=== PATIENT | female | born 1940 | race American Indian/Alaskan Native ===

== ENCOUNTER 2019-03-21 17:02 | Emergency (ER) | payer MEDICARE ==
--- NOTE | 2019-03-21 17:15 | Emergency Department Report ---
Blank Doc - Documentation Documentation: This is a 78-year-old female that presents to the ED by her PCP for blood rose sfusion. Stated had low H/H. This initial assessment/diagnostic orders/clinical plan/treatment(s) is/are subject to change based on patient's health status, clinical progression and re- assessment by fellow clinical providers in the ED. Further treatment and workup at subsequent clinical providers discretion. Patient/guardians urged not to elope from the ED as their condition may be serious if not clinically assessed and managed. Initial orders include: 1- Patient sent to MAIN ED for further evaluation and treatment 2- labs
[2019-03-21 17:56] LABS: Hematocrit 21.2 % (30.3-42.9); Hemoglobin 7.1 gm/dl (10.1-14.3); Mean Corpuscular HGB Conc 33 % (30-34); Red Blood Count 1.86 M/mm3 (3.65-5.03)
[2019-03-21 17:57] LABS: Calcium 8.8 mg/dL (8.4-10.2)
[2019-03-21 17:58] LABS: Mean Corpuscular Volume 114 fl (79-97); Platelet Count 54 K/mm3 (140-440)
--- NOTE | 2019-03-21 18:07 | Emergency Department Report ---
HPI - General Chief Complaint: Recheck/Abnormal Lab/Rx Time Seen by Provider: 03/21/19 17:14 - HPI HPI: 78-year-old -[place] female presents to the emergency department, sent in by her oncologist Dr. Gonsales, secondary to low hemoglobin with a requ est/instructions for a blood transfusion. The office note shows a hemoglobin of 6.8 and his request for the patient received 2 units of packed red blood cells. Patient has a history of myelodysplastic syndrome. She is not currently undergoing any type of chemotherapy or radiation treatment. She also has a past medical history of diabetes and hypertension. The patient complains of a generalized headache has been going on for the past week. She denies any vision change, slurred speech or any neurological deficits. She has not taken anything for her symptoms prior to arrival today. No recent travel or sick contacts at home. ED Past Medical Hx - Past Medical History Previous Medical History?: Yes Hx Hypertension: Yes Hx Diabetes: Yes Additional medical history: Myelodysplastic syndrome - Surgical History Additional Surgical History: Bone Cancer - Social History Smoking Status: Never Smoker Substance Use Type: None - Medications Home Medications: Home Medications Medication Instructions Recorded Confirmed Last Taken Type HYDROcodone/APAP 5-325 [[place] 1 each PO Q6HR PRN #6 tablet 03/22/19 Unknown Rx 5/325] ED Review of Systems ROS: Stated complaint: BLOOD TRANSFUSION Other details as noted in HPI Comment: All other systems reviewed and negative Constitutional: denies: chills, fever Eyes: denies: eye pain, vision change ENT: denies: ear pain, throat pain Respiratory: denies: cough, shortness of breath Cardiovascular: denies: chest pain, palpitations Gastrointestinal: denies: abdominal pain, vomiting Genitourinary: denies: dysuria, discharge Musculoskeletal: denies: back pain, arthralgia Skin: denies: rash, lesions Neurological: headache. denies: numbness, paresthesias, confusion Physical Exam - Physical Exam Vital Signs: Vital Signs 03/21/19 17:14 Temperature 98.6 F Pulse Rate 72 Respiratory 16 Rate Blood Pressure 136/46 O2 Sat by Pulse 99 Oximetry Physical Exam: GENERAL: The patient is well-developed well-nourished. HENT: Normocephalic. Atraumatic. Patient has moist mucous membranes. EYES: Extraocular motions are intact. Pupils equal reactive to light bilaterally. No nystagmus. Pale conjunctiva. NECK: Supple. Trachea is midline. CHEST/LUNGS: Clear to auscultation. There is no respiratory distress noted. HEART/CARDIOVASCULAR: Regular. There is no tachycardia. There is no murmur. ABDOMEN: Abdomen is soft, nontender. Patient has normal bowel sounds. There is no abdominal distention. SKIN: Skin is warm and dry. NEURO: The patient is awake, alert, and oriented. The patient is cooperative. The patient has no focal neurologic deficits. The patient has normal speech. Cranial nerves II through XII grossly intact. MUSCULOSKELETAL: There is no tenderness or deformity. There is no limitation range of motion. There is no evidence of acute injury. ED Course Vital Signs 03/21/19 17:14 Temperature 98.6 F Pulse Rate 72 Respiratory 16 Rate Blood Pressure 136/46 O2 Sat by Pulse 99 Oximetry - Consultations Consultation #1: I spoke with the patient's oncologist, Dr. Chauhan, regarding that the patient had a hemoglobin here today of 7.1. He asked for the patient receive 1 unit of packed red blood cells. The patient can be discharged home afterwards if there are no other reasons for admission. If the patient is discharged, he has requested the patient come to his office tomorrow afternoon at 2 PM for a bone marrow biopsy. 03/21/19 18:07 ED Medical Decision Making - Lab Data Result diagrams: 03/21/19 17:20 03/21/19 17:20 - EKG Data -: EKG Interpreted by Co EKG shows normal: sinus rhythm, axis, intervals, QRS complexes, ST-T waves Rate: normal - EKG Data When compared to previous EKG there are: previous EKG unavailable Interpretation: normal EKG - Radiology Data Radiology results: report reviewed CT HEAD WITHOUT CONTRAST INDICATION / CLINICAL INFORMATION: headache. TECHNIQUE: All CT scans at this location are performed using CT dose reduction for ALARA by means of automated exposure control. COMPARISON: None available. FINDINGS: HEMORRHAGE: No evidence of intracranial hemorrhage or extra-axial fluid collection. EXTRA-AXIAL SPACES: Cortical sulci and sylvian fissures are enlarged reflecting a degree of parenchymal volume loss which is within normal limits. Basilar cisterns have an unremarkable appearance. VENTRICULAR SYSTEM: The third and lateral ventricles are normal in size. There is little in the way of age-related parenchymal volume loss in this 78 year-old individual. CEREBRAL PARENCHYMA: Periventricular and deep white matter lucency is observed. This is probably secondary to microvascular ischemic change. There is no indication of recent infarction. No areas of encephalomalacia are identified. MIDLINE SHIFT OR HERNIATION: There is no mass effect. CEREBELLUM / BRAINSTEM: Brainstem and cerebellum have an unremarkable appearance. INTRACRANIAL VESSELS:Calcified atherosclerotic plaque is present along the course of the cavernous segments of both internal carotid arteries. Similar findings are seen at the distal vertebral arteries. ORBITS: There is evidence of remote left-sided medial wall blowout fracture. Visualized portions of the orbits have an otherwise unremarkable appearance. SOFT TISSUES of HEAD: No significant abnormality. CALVARIUM: Prominent pacchionian granulations are observed along the floor of the left middle cranial fossa. Evaluation of bone windows reveals no significant abnormalities. PARANASAL SINUSES / MASTOID AIR CELLS: Frontal sinuses did not develop in this individual. Paranasal sinuses are free from inflammatory mucosal disease. Mastoid air cells are normally pneumatized. IMPRESSION: 1. No acute intracranial abnormality. - Medical Decision Making This patient was sent in by her packager and strapper/oncologist secondary to a previous hemoglobin of 6.8 and a request for blood transfusions. Her hemoglobin today was 7.1. I contacted the packager and strapper who asked for the patient to receive 1 unit of packed red blood cells for transfusion. He says that the patient can be discharged home after this if there are no other significant abnormalities or reasons for admission. She does have some slightly elevated potassium level but she was given a dose of Kayexalate. She complained of a headache so a CT scan of the head without contrast was done that did not show any bleed, shift, mass, ischemia, or any other acute process. The patient was reevaluated multiple times over multiple hours and has remained awake, alert, oriented, and stable throughout her ED course. She was given a single [place] for her headache with great improvement. She has no focal, motor or sensory deficits in her cranial nerves are intact. Vital signs stable throughout her ED course. For all these reasons, the patient appears safe for discharge home. Provided discharge, the patient was seen ambulatory in the emergency department and both appears and feels stable. She will follow-up at 2 PM this afternoon with the packager and strapper/oncologist for a bone marrow biopsy. She will return to the ER with any worsening of her symptoms or any acute distress. - Differential Diagnosis myelodysplastic syndrome, tension headache, migraine, subarachnoid Critical Care Time: No Critical care attestation.: If time is entered above; I have spent that time in minutes in the direct care of this critically ill patient, excluding procedure time. ED Disposition Clinical Impression: Myelodysplasia (myelodysplastic syndrome), Anemia requiring transfusions, Thrombocytopenia Disposition: TO HOME OR SELFCARE Is pt being admited?: No Condition: Stable Instructions: Myelodysplastic Syndromes (ED), Acute Headache (ED), Anemia (ED) Additional Instructions: Please follow-up with your packager and strapper/oncologist at 2 PM this afternoon. Return to the emergency Department with any worsening of your symptoms or any acute distress. You have been prescribed a medication that is sedating and therefore should not be taken prior to driving, working, and responsible for children and in no way should be mixed with alcohol of any quantity. Prescriptions: HYDROcodone/APAP 5-325 [[place] 5/325] 1 each PO Q6HR PRN #6 tablet PRN Reason: Pain Referrals: RICARDO GONSALES MD [Staff Physician] - 03/22/19 2:00 pm Time of Disposition: 01:00
[2019-03-21] MEDS ORDERED: KIONEX PO ONE (18:13)
[2019-03-21] MEDS ORDERED: NACL 0.9% 500 ML 500 ML IV ONE (18:13)
[2019-03-21 18:54] LABS: Band Neutrophils # (Manual) 0.2 K/mm3; Basophils % (Manual) 0 % (0.0-1.8); Eosinophils % (Manual) 0 % (0.0-4.3); Myelocytes # (Manual) 0.2 K/mm3; Total Cells Counted 100
[2019-03-21 18:55] LABS: Large Platelets 1+; Macrocytosis 1+
[2019-03-21 18:56] LABS: Hypochromasia 2+; Ovalocytes 1+; Tear Drop Cells 1+
[2019-03-21 18:57] LABS: Schistocytes Rare
[2019-03-21 18:58] LABS: Platelet Estimate Appears Decreased
--- NOTE | 2019-03-21 21:42 | Cat Scan Report ---
CT HEAD WITHOUT CONTRAST INDICATION / CLINICAL INFORMATION: headache. TECHNIQUE: All CT scans at this location are performed using CT dose reduction for ALARA by means of automated e xposure control. COMPARISON: None available. FINDINGS: HEMORRHAGE: No evidence of intracranial hemorrhage or extra-axial fluid collection. EXTRA-AXIAL SPACES: Cortical sulci and sylvian fissures are enlarged reflecting a degree of parenchym al volume loss which is within normal limits. Basilar cisterns have an unremarkable appearance. VENTRICULAR SYSTEM: The third and lateral ventricles are normal in size. There is little in the way o f age-related parenchymal volume loss in this 78 year-old individual. CEREBRAL PARENCHYMA: Periventricular and deep white matter lucency is observed. This is probably seco ndary to microvascular ischemic change. There is no indication of recent infarction. No areas of ence phalomalacia are identified. MIDLINE SHIFT OR HERNIATION: There is no mass effect. CEREBELLUM / BRAINSTEM: Brainstem and cerebellum have an unremarkable appearance. INTRACRANIAL VESSELS:Calcified atherosclerotic plaque is present along the course of the cavernous se gments of both internal carotid arteries. Similar findings are seen at the distal vertebral arteries. ORBITS: There is evidence of remote left-sided medial wall blowout fracture. Visualized portions of t he orbits have an otherwise unremarkable appearance. SOFT TISSUES of HEAD: No significant abnormality. CALVARIUM: Prominent pacchionian granulations are observed along the floor of the left middle cranial fossa. Evaluation of bone windows reveals no significant abnormalities. PARANASAL SINUSES / MASTOID AIR CELLS: Frontal sinuses did not develop in this individual. Paranasal sinuses are free from inflammatory mucosal disease. Mastoid air cells are normally pneumatized. IMPRESSION: 1. No acute intracranial abnormality. Signer Name: Ba Salamanca MD Signed: 03/21/2019 9:37 PM Workstation Name: [id number]
[2019-03-21] MEDS ORDERED: NORCO 5/325 PO ONE (21:52)
[2019-03-21 23:43] VITALS: BP 152/53
== END 2019-03-22 01:12 | disposition home or self-care (01) ==
LOC: ED 17:02
DX: D46.9 Myelodysplastic syndrome, unspecified (principal); D69.6 Thrombocytopenia, unspecified; I10 Essential (primary) hypertension; E11.9 Type 2 diabetes mellitus without complications; Z85.830 Personal history of malignant neoplasm of bone
CPT/HCPCS: 36415; 36430; 70450; 80048; 85007; 85025; 85730; 86850; 86900; 86901; 86920; 93005; 93010; 99284; J7040; P9040

== ENCOUNTER 2019-05-25 19:23 | Inpatient (IN) | payer MEDICARE ==
[2019-05-25] MEDS ORDERED: NACL 0.9% 500 ML 500 ML IV ONE ×2 (20:17→21:31)
[2019-05-25] MEDS ORDERED: SUBLIMAZE IV ONE (20:19)
--- NOTE | 2019-05-25 20:20 | Emergency Department Report ---
ED General Adult HPI - General Chief complaint: Dyspnea/Respdistress Stated complaint: NILES Time Seen by Provider: 05/25/19 20:10 Source: patient, EMS (ems notes not available at time of chart dictation), RN notes reviewed, old records reviewed Mode of arrival: Stretcher Limitations: Physical Limitation - History of Present Illness Initial comments: This is a pleasant 78-year-old female. This patient is not known to this provider previously. She does not know the name of her primary care doctor. Her hematology application security specialist is Dr. Gonsales Apparently, she has a history of myelodysplastic syndrome, and anemia Patient states she was admitted to [facility] for over a week last month. She is not sure why she was admitted, possibly for a fall. She presents to the ER today with complaint of shortness of breath and central chest pain, malaise and fatigue. Symptoms constant since this morning. The chest pain is central and right-sided. It does not radiate anywhere. She is not sure of any exacerbating or relieving factors. She denies fever, they have a dry cough, denies hematemesis, bright red blood per rectum. Also feels like bilateral lower extremities are swollen. Feels somewhat orthopneic. -: Gradual Location: chest Quality: other Consistency: other Improves with: other Worsens with: other Associated Symptoms: chest pain, malaise, shortness of breath, weakness - Related Data Previous Rx's Medication Instructions Recorded Last Taken Type HYDROcodone/APAP 5-325 [[place] 1 each PO Q6HR PRN #6 tablet 03/22/19 Unknown Rx 5/325] Allergies Allergy/AdvReac Type Severity Reaction Status Date / Time No Known Allergies Allergy Verified 05/25/19 20:14 ED Review of Systems ROS: Stated complaint: NILES Other details as noted in HPI Constitutional: malaise. denies: fever Eyes: denies: eye discharge ENT: denies: congestion Respiratory: shortness of breath Cardiovascular: chest pain, edema Gastrointestinal: denies: abdominal pain, nausea, vomiting, constipation, hematemesis, melena, hematochezia Genitourinary: denies: dysuria Musculoskeletal: myalgia Skin: denies: lesions Neurological: weakness ED Past Medical Hx - Past Medical History Previous Medical History?: Yes Hx Hypertension: Yes Hx Diabetes: Yes Hx of Cancer: Yes (Bone) Additional medical history: Myelodysplastic syndrome - Surgical History Past Surgical History?: Yes Hx Cholecystectomy: Yes Additional Surgical History: Bone Cancer - Social History Smoking Status: Never Smoker Substance Use Type: None - Medications Home Medications: Home Medications Medication Instructions Recorded Confirmed Last Taken Type HYDROcodone/APAP 5-325 [[place] 1 each PO Q6HR PRN #6 tablet 03/22/19 Unknown Rx 5/325] ED Physical Exam - General Limitations: No Limitations, Physical Limitation General appearance: alert, anxious - Head Head exam: Present: atraumatic, normocephalic - Eye Eye exam: Present: normal appearance, EOMI. Absent: nystagmus - ENT ENT exam: Present: normal exam, normal orophraynx, mucous membranes moist - Neck Neck exam: Present: normal inspection, full ROM. Absent: tenderness, meningismus - Respiratory Respiratory exam: Present: decreased breath sounds. Absent: respiratory distress, wheezes, rales, rhonchi, stridor - Cardiovascular Cardiovascular Exam: Present: normal rhythm, normal heart sounds, JVD. Absent: tachycardia, irregular rhythm, systolic murmur, diastolic murmur, rubs, gallop - GI/Abdominal GI/Abdominal exam: Present: soft. Absent: distended, tenderness, guarding, rebound, rigid, pulsatile mass - Extremities Exam Extremities exam: Present: normal inspection, full ROM, pedal edema, other (2+ pulses noted in the bilateral upper, lower extremities. Compartments soft. No long bony tenderness. The pelvis is stable.). Absent: calf tenderness - Back Exam Back exam: Present: normal inspection, full ROM. Absent: CVA tenderness (R), CVA tenderness (L), paraspinal tenderness, vertebral tenderness - Neurological Exam Neurological exam: Present: alert, other (Extraocular movements intact. Tongue midline. No facial droop. Facial sensation intact to light touch in the V1, V2, V3 distribution bilaterally. 5 and 5 strength in 4 extremities.. Sensation is intact to light touch in 4 extremities.). Absent: motor sensory deficit - Psychiatric Psychiatric exam: Present: normal affect, normal mood - Skin Skin exam: Present: warm, dry, intact, normal color. Absent: rash ED Course Vital Signs 05/25/19 05/25/19 05/25/19 20:06 20:11 20:15 Temperature Pulse Rate 81 Respiratory 20 20 Rate Blood Pressure 118/83 O2 Sat by Pulse 91 77 L 76 L Oximetry 05/25/19 05/25/19 05/25/19 20:16 20:30 20:46 Temperature Pulse Rate 86 82 Respiratory 25 H 20 28 H Rate Blood Pressure 123/33 143/58 139/47 O2 Sat by Pulse 87 95 95 Oximetry 05/25/19 05/25/19 05/25/19 20:50 21:00 21:26 Temperature 99.3 F Pulse Rate 81 102 H Respiratory 24 Rate Blood Pressure 105/33 105/33 O2 Sat by Pulse 96 90 Oximetry 05/25/19 21:30 Temperature Pulse Rate 94 H Respiratory 29 H Rate Blood Pressure 152/48 O2 Sat by Pulse 94 Oximetry - Reevaluation(s) Reevaluation #1: 05/25/19 20:36 Differential diagnosis, including not limited to: Pericardial effusion, pericarditis, congestive heart failure, tampanade, acute coronary syndrome, pneumonia, pulmonary embolism Assessment and plan: 78-year-old female with quite shortness of breath, found to be hypoxic, with minimal lower extremity edema, JVD, no crackles, no rales, bedside ultrasound performed by myself, suggests a ? pericardial effusion, ejection fraction approximately 50%, equal pulses upper, lower extremities. We'll treat the patient's pain, obtain emergent CT scan of the chest to exclude pulmonary embolism and confirm/refute effusion, obtain cardiology consult once initial diagnostics have resulted. Doubt aortic disease as patient has equal pulses in the upper, lower extremities, and is not especially hypertensive. 05/25/19 21:53 Reevaluation #2: 05/25/19 21:35 Laboratory studies reviewed and appreciated. Anemia suggested, along with neutropenia. Neutropenic precautions are ordered. 1 unit of leukocyte reduced irradiated blood cells ordered for presumed symptomatic anemia. Contacted patient's private territory sales representative, Dr. Gonsales, who indicates his group can and will see the patient in consultation. He recommends cefepime, and is in agreement with packed red blood cell transfusion. Cardiology, critical care consult has been requested. Reevaluation #3: 05/25/19 21:39 Case is discussed with cardiology on-call, Dr. Linda Manning, who agrees with the aforementioned management plan, and indicates his group can follow in consultation. Reevaluation #4: 05/25/19 21:42 Discussed with critical care physician, Dr. Mckeon, who agrees with the current management plan, and is also amenable to placement into the stepdown unit. Reevaluation #5: 05/25/19 21:53 CT scan of the chest suggest congestive heart failure. Case presented to Hospital physician, Dr. Jimenez, who accepts the patient to the medical service. No evidence of pulmonary embolus is suggested. There is no CT scan evidence of pericardial effusion. 05/25/19 22:09 Patient hypoxic with increased work of breathing. BiPAP is ordered. ED Medical Decision Making - Lab Data Result diagrams: 05/25/19 20:15 05/25/19 20:15 Vital Signs 05/25/19 20:11 Pulse Rate 81 Respiratory 20 Rate Blood Pressure 118/83 O2 Sat by Pulse 77 L Oximetry Vital Signs 05/25/19 05/25/19 05/25/19 20:06 20:11 20:16 Temperature Pulse Rate 81 86 Respiratory 20 25 H Rate Blood Pressure 118/83 123/33 O2 Sat by Pulse 91 77 L 87 Oximetry 05/25/19 05/25/19 05/25/19 20:30 20:46 20:50 Temperature 99.3 F Pulse Rate 82 Respiratory 20 28 H Rate Blood Pressure 143/58 139/47 O2 Sat by Pulse 95 95 Oximetry Lab Results 05/25/19 05/25/19 05/25/19 Range/Units 20:15 20:15 20:15 PT 18.1 H (12.2-14.9) Sec. INR 1.54 H (0.87-1.13) APTT 40.6 H (24.2-36.6) Sec. D-Dimer 609.27 H (0-234) ng/mlDDU Sodium 142 (137-145) mmol/L Potassium 3.8 (3.6-5.0) mmol/L Chloride 101.4 (98-107) mmol/L Carbon Dioxide 26 (22-30) mmol/L Anion Gap 18 mmol/L BUN 19 H (7-17) mg/dL Creatinine 0.9 (0.7-1.2) mg/dL Estimated GFR > 60 ml/min BUN/Creatinine Ratio 21 % Glucose 95 (65-100) mg/dL Calcium 8.3 L (8.4-10.2) mg/dL Magnesium (1.7-2.3) mg/dL Total Bilirubin 1.40 H (0.1-1.2) mg/dL AST 7 (5-40) units/L Alkaline Phosphatase 59 (35-129) units/L Total Creatine Kinase (30-135) units/L Troponin T < 0.010 (0.00-0.029) ng/mL NT-Pro-B Natriuret Pep (0-900) pg/mL Total Protein 7.0 (6.3-8.2) g/dL Albumin 3.6 L (3.9-5) g/dL Albumin/Globulin Ratio 1.1 % 05/25/19 Range/Units 20:15 PT (12.2-14.9) Sec. INR (0.87-1.13) APTT (24.2-36.6) Sec. D-Dimer (0-234) ng/mlDDU Sodium (137-145) mmol/L Potassium (3.6-5.0) mmol/L Chloride (98-107) mmol/L Carbon Dioxide (22-30) mmol/L Anion Gap mmol/L BUN (7-17) mg/dL Creatinine (0.7-1.2) mg/dL Estimated GFR ml/min BUN/Creatinine Ratio % Glucose (65-100) mg/dL Calcium (8.4-10.2) mg/dL Magnesium 2.10 (1.7-2.3) mg/dL Total Bilirubin (0.1-1.2) mg/dL AST (5-40) units/L Alkaline Phosphatase (35-129) units/L Total Creatine Kinase 17 L (30-135) units/L Troponin T (0.00-0.029) ng/mL NT-Pro-B Natriuret Pep 5267 H (0-900) pg/mL Total Protein (6.3-8.2) g/dL Albumin (3.9-5) g/dL Albumin/Globulin Ratio % - EKG Data -: EKG Interpreted by Sd EKG shows normal: sinus rhythm Rate: normal - EKG Data 05/25/19 20:40 This is a sinus rhythm, 80 bpm, normal axis, question electrical alternans lead 3, there is low voltage in the inferior leads, there is poor R-wave progression, the EKG is abnormal, when compared to prior EKG from March 2019, appears mostly unchanged, lead 3 abnormalities appear to be somewhat more pronounced, not consistent with ST elevation myocardial infarction. - Radiology Data Radiology results: pending, report reviewed, image reviewed [address] [address] XRay Report Signed Patient: TONY BURCH MR#: [id number] : 1940 Acct:[id number] Age/Sex: 78 / F ADM Date: 05/25/19 Loc: ED Attending Dr: Ordering Physician: JULIET MAYO MD Date of Service: 05/25/19 Procedure(s): XR chest 1V ap Accession Number(s): [id number] cc: JULIET MAYO MD Fluoro Time In Minutes: CHEST 1 VIEW INDICATION: Dyspnea. COMPARISON: None. FINDINGS: Support devices: None. Heart: Enlarged. Lungs/Pleura: Mild diffuse predominantly interstitial opacities are noted and there are small effusions. IMPRESSION: 1. Probable mild congestive heart failure. Signer Name: Stan Zhao MD Signed: 05/25/2019 9:19 PM Workstation Name: [id number] Transcribed By: Dictated By: Stan Zhao MD Electronically Authenticated By: Stan Zhao MD Signed Date/Time: 05/25/[address] [address] Cat Scan Report Signed Patient: TONY BURCH MR#: [id number] : 1940 Acct:[id number] Age/Sex: 78 / F ADM Date: 05/25/19 Loc: ED Attending Dr: Ordering Physician: JULIET MAYO MD Date of Service: 05/25/19 Procedure(s): CT angio chest Accession Number(s): [id number] cc: JULIET MAYO MD CTA CHEST WITH IV CONTRAST INDICATION: cp sob hypoxia. TECHNIQUE: Axial CT images were obtained through the chest after injection of IV contrast. 3 plane MIP reconstructions were produced. All CT scans at this location are performed using CT dose reduction for ALARA by means of automated exposure control. COMPARISON: None available. FINDINGS: Pulmonary Arteries: No pulmonary emboli. Thoracic Aorta: No acute abnormality. Heart: There is mild left atrial enlargement. There is no pericardial effusion. Coronary Arteries: No significant calcification. Lungs: Diffuse increased interstitial markings are noted with subtle bilateral groundglass opacities. There is compressive atelectasis in the dependent lung bases. Pleura: There are small, relatively symmetric bilateral pleural effusions. No pneumothorax. Lymph Nodes: No significant adenopathy. Additional Findings: None. Upper Abdomen: Hepatomegaly is noted. There is marked splenomegaly, this is incompletely evaluated on this exam. Skeletal Structures: No significant osseous abnormality. IMPRESSION: 1. No CT evidence for pulmonary embolism. 2. Diffuse predominantly interstitial pulmonary opacities may be due to interstitial pulmonary edema. There are small effusions. 3. Massive splenomegaly, incompletely evaluated on this exam. There also is enlargement of the liver. Signer Name: Stan Zhao MD Signed: 05/25/2019 9:40 PM Workstation Name: [id number] Transcribed By: YENIFER Dictated By: Stan Zhao MD Electronically Authenticated By: Stan Zhao MD Signed Date/Time: 05/25/19 1170 Critical Care Time: Yes Critical care time in (mins) excluding proc time.: 60 Critical care attestation.: If time is entered above; I have spent that time in minutes in the direct care of this critically ill patient, excluding procedure time. ED Disposition Clinical Impression: Dyspnea, Hypoxia, Neutropenia, Acute CHF Disposition: OP ADMIT IP TO THIS HOSP Is pt being admited?: Yes Condition: Serious Referrals: JEFFRY WELCH MD [Primary Care Provider] - 3-5 Days
[2019-05-25 20:40] LABS: INR 1.54 (0.87-1.13)
[2019-05-25 20:41] LABS: Partial Thromboplastin Time 40.6 Sec. (24.2-36.6)
[2019-05-25 20:48] LABS: Albumin 3.6 g/dL (3.9-5); BUN/Creatinine Ratio 21; Blood Urea Nitrogen 19 mg/dL (7-17); Calcium 8.3 mg/dL (8.4-10.2); Hemolysis Index 31; Mean Corpuscular HGB Conc 33 % (30-34); Mean Corpuscular Volume 94 fl (79-97); Red Blood Count 1.93 M/mm3 (3.65-5.03)
[2019-05-25 21:02] LABS: Alanine Aminotransferase < 5 units/L (7-56)
[2019-05-25 21:07] LABS: Hematocrit 18.2 % (30.3-42.9); Red Cell Distribution Width 22.6 % (13.2-15.2)
[2019-05-25 21:08] LABS: Platelet Count 48 K/mm3 (140-440)
--- NOTE | 2019-05-25 21:23 | XRay Report ---
CHEST 1 VIEW INDICATION: Dyspnea. COMPARISON: None. FINDINGS: Support devices: None. Heart: Enlarged. Lungs/Pleura: Mild diffuse predominantly interstitial opacities are noted and there are small effusio ns. IMPRESSION: 1. Probable mild congestive heart failure. Signer Name: Stan Zhao MD Signed: 05/25/2019 9:19 PM Workstation Name: [id number]
[2019-05-25] MEDS ORDERED: LASIX IV ONE (21:35)
--- NOTE | 2019-05-25 21:44 | Cat Scan Report ---
CTA CHEST WITH IV CONTRAST INDICATION: cp sob hypoxia. TECHNIQUE: Axial CT images were obtained through the chest after injection of IV contrast. 3 plane MIP reconstru ctions were produced. All CT scans at this location are performed using CT dose reduction for ALARA b y means of automated exposure control. COMPARISON: None available. FINDINGS: Pulmonary Arteries: No pulmonary emboli. Thoracic Aorta: No acute abnormality. Heart: There is mild left atrial enlargement. There is no pericardial effusion. Coronary Arteries: No significant calcification. Lungs: Diffuse increased interstitial markings are noted with subtle bilateral groundglass opacities. There is compressive atelectasis in the dependent lung bases. Pleura: There are small, relatively symmetric bilateral pleural effusions. No pneumothorax. Lymph Nodes: No significant adenopathy. Additional Findings: None. Upper Abdomen: Hepatomegaly is noted. There is marked splenomegaly, this is incompletely evaluated on this exam. Skeletal Structures: No significant osseous abnormality. IMPRESSION: 1. No CT evidence for pulmonary embolism. 2. Diffuse predominantly interstitial pulmonary opacities may be due to interstitial pulmonary edema. There are small effusions. 3. Massive splenomegaly, incompletely evaluated on this exam. There also is enlargement of the liver. Signer Name: Stan Zhao MD Signed: 05/25/2019 9:40 PM Workstation Name: [id number]
[2019-05-25] MEDS ORDERED: MAXIPIME/NS 2 GM/100 ML 2 GM/100 ML BAG IV SCH (22:00)
[2019-05-25] MEDS ORDERED: VASOTEC IV ONE (22:12)
[2019-05-25] MEDS ORDERED: ASPIRIN PR ONE (22:17)
[2019-05-25 22:22] LABS: Anisocytosis 1+; Total Cells Counted 100
[2019-05-25 22:23] LABS: Platelet Clumps 1+
--- NOTE | 2019-05-25 22:29 | History and Physical Report ---
History of Present Illness Date of examination: 05/25/19 History of present illness: 78-year-old woman with a history of myelodysplastic syndrome, hypertension, diabetes, anemia comes emergency room with complaints of shortness of breath and feeling dizzy, symptoms started this morning. Also complain of chest pain in t he epigastric area which she describes as sharp pain, constant, intensity follow 10, no radiation, can't identify exacerbating or relieving factors. She was admitted to [facility] 1[facility]1/2 weeks ago, she sustained a fall, state that she was transfused 4 units of blood and also given plasma and antibiotics, she is not quite sure why antibiotic was given. She was discharged from the hospital on Thursday. In the emergency room she was started on nitroglycerin drip, placed on BiPAP eview Of Systems: Constitutional: no weight loss, fever, chills Ears, eyes, nose, mouth and throat: no nasal congestion, no nasal discharge, no sinus pressure, blurry vision, diplopia Neck: No neck pain or rigidity. Cardiovascular: No palpitations Respiratory: No cough Gastrointestinal: No hematochezia, abdominal pain Genitourinary : no dysuria, frequency , hematuria Musculoskeletal: no muscle ache , joint pain Integumentary: no rash, no pruritis Neurological: no parathesias, focal weakness Endocrine: no cold or heat intolerance, no polyuria or polydipsia Hematologic/Lymphatic: no easy bruising, no easy bleeding, no gland swelling Allergic/Immunologic: no urticaria, no angioedema. PAST MEDICAL HISTORY:myelodysplastic syndrome, hypertension, diabetes, anemia PAST SURGICAL HISTORY: gallbladder FAMILY HISTORY:hypertension, diabetes SOCIAL HISTORY: Denies tobacco, drugs, alcohol Medications and Allergies Allergies Allergy/AdvReac Type Severity Reaction Status Date / Time No Known Allergies Allergy Verified 05/25/19 20:14 Home Medications Medication Instructions Recorded Confirmed Last Taken Type HYDROcodone/APAP 5-325 [[place] 1 each PO Q6HR PRN #6 tablet 03/22/19 Unknown Rx 5/325] Active Meds: Active Medications Nitroglycerin/Dextrose (Tridil Drip 50mg/250ml) 50 mg in 250 mls @ 3 mls/hr IV TITR XOCHITL; Protocol Exam - Physical Exam Narrative exam: General Apperance: The patient sitting in bed no acute distress HEENT: Normocephalic, atraumatic. Pupils equally round and reactive to light, extraocular movement intact, and no sclericterus or JVD or thyromegaly or nodule. Neck supple, no carotid bruit, mucous membranes moist, no exudate or erythema Heart: S1-S2, regular is rhythm Lungs: Crackles bilaterally, breathing comfortable Abdomen: Positive bowel sounds, soft, nontender, nondistended, no organomegaly Extremities: No edema cyanosis clubbing Skin: no rash, nodule, warm and dry Neuro:CN 2 -12 intact, motor/sensory intact, speech is fluent - Constitutional Vitals: Temp Pulse Resp BP Pulse Ox 99.3 F 111 H 26 H 182/71 96 05/25/19 20:50 05/25/19 22:15 05/25/19 22:15 05/25/19 22:15 05/25/19 22:15 Results - Labs CBC & Chem 7: 05/25/19 20:15 05/25/19 20:15 Labs: Abnormal lab results 05/25/19 05/25/19 05/25/19 Range/Units 20:15 20:15 20:15 WBC 1.1 L* (4.5-11.0) K/mm3 RBC 1.93 L (3.65-5.03) M/mm3 Hgb 6.0 L (10.1-14.3) gm/dl Hct 18.2 L* (30.3-42.9) % RDW 22.6 H (13.2-15.2) % Plt Count 48 L (140-440) K/mm3 Monocytes % (Manual) 19.0 H (0.0-7.3) % Eosinophils % (Manual) 7.0 H (0.0-4.3) % Basophils % (Manual) 3.0 H (0.0-1.8) % Seg Neutrophils # Man 0.5 L (1.8-7.7) K/mm3 Lymphocytes # (Manual) 0.3 L (1.2-5.4) K/mm3 PT 18.1 H (12.2-14.9) Sec. INR 1.54 H (0.87-1.13) APTT 40.6 H (24.2-36.6) Sec. D-Dimer 609.27 H (0-234) ng/mlDDU BUN 19 H (7-17) mg/dL Calcium 8.3 L (8.4-10.2) mg/dL Total Bilirubin 1.40 H (0.1-1.2) mg/dL ALT < 5 L (7-56) units/L Total Creatine Kinase (30-135) units/L NT-Pro-B Natriuret Pep (0-900) pg/mL Albumin 3.6 L (3.9-5) g/dL 05/25/19 Range/Units 20:15 WBC (4.5-11.0) K/mm3 RBC (3.65-5.03) M/mm3 Hgb (10.1-14.3) gm/dl Hct (30.3-42.9) % RDW (13.2-15.2) % Plt Count (140-440) K/mm3 Monocytes % (Manual) (0.0-7.3) % Eosinophils % (Manual) (0.0-4.3) % Basophils % (Manual) (0.0-1.8) % Seg Neutrophils # Man (1.8-7.7) K/mm3 Lymphocytes # (Manual) (1.2-5.4) K/mm3 PT (12.2-14.9) Sec. INR (0.87-1.13) APTT (24.2-36.6) Sec. D-Dimer (0-234) ng/mlDDU BUN (7-17) mg/dL Calcium (8.4-10.2) mg/dL Total Bilirubin (0.1-1.2) mg/dL ALT (7-56) units/L Total Creatine Kinase 17 L (30-135) units/L NT-Pro-B Natriuret Pep 5267 H (0-900) pg/mL Albumin (3.9-5) g/dL - Imaging and Cardiology EKG: image reviewed Chest x-ray: report reviewed CT scan - chest: report reviewed Assessment and Plan Assessment Acute respiratory failure CHF, probably secondary to underlying pneumonia anemia Anemia, acute on chronic Neutropenia Thrombocytopenia Myelodysplastic syndrome diabetes Plan Admit to medicine Transfuse blood cell Cardiology, hematology critical care was consulted to see the patient Check cardiac enzymes, echo, continue BiPAP, nitroglycerin drip start lasix, hold aspirin, bblocher and ACEI, blood pressure will not tolerate Check blood cultures, UA, start empiric Zosyn, Vanco DVT prophylaxis
[2019-05-25] MEDS ORDERED: TRIDIL DRIP 50MG/250ML 50 MG/250 ML BOTTLE IV SCH (23:00)
[2019-05-26] MEDS ORDERED: D50W (25GM) Syringe IV PRN (00:23)
[2019-05-26] MEDS ORDERED: ZOFRAN IV PRN (00:23)
[2019-05-26] MEDS ORDERED: SODIUM CHLORIDE FLUSH SYRINGE 10 ML IV PRN (00:23)
[2019-05-26] MEDS ORDERED: VANCOMYCIN/NS 1 GM/250 ML 1 GM/250 ML BAG IV ONE (01:42)
[2019-05-26] MEDS ORDERED: DUONEB *Not for PRN Use IH ONE ×2 (03:00→08:08)
[2019-05-26] MEDS: DUONEB *Not for PRN Use IH SCH ×4 (03:02→20:51)
[2019-05-26] MEDS: ZOSYN/NS 3.375GM/50ML 3.375 GM/50 ML BAG IV SCH ×2 (05:04→15:23)
[2019-05-26 05:44] LABS: Creatine Kinase MB < 1.0 ng/mL (0.0-4.0)
[2019-05-26 05:48] LABS: Hemoglobin 6.6 gm/dl (10.1-14.3); Mean Corpuscular HGB Conc 34 % (30-34); Mean Corpuscular Volume 91 fl (79-97); Red Blood Count 2.16 M/mm3 (3.65-5.03); Red Cell Distribution Width 18.4 % (13.2-15.2)
[2019-05-26] MEDS ORDERED: LASIX ONE (05:49)
[2019-05-26 05:55] LABS: Hematocrit 19.7 % (30.3-42.9)
[2019-05-26] MEDS: HumaLOG SUB-Q SCH (06:14)
[2019-05-26] MEDS: LASIX IV SCH ×2 (06:15→20:17)
[2019-05-26] MEDS ORDERED: NACL 0.9% 500 ML 500 ML IV ONE (06:49)
--- NOTE | 2019-05-26 06:58 | Event Note ---
Date: 05/26/19 [id number]
[2019-05-26 07:52] LABS: Basophils % (Manual) 0 % (0.0-1.8); Eosinophils % (Manual) 0 % (0.0-4.3); Hypochromasia 1+; Total Cells Counted 100
[2019-05-26 07:53] LABS: Large Platelets 1+; Macrocytosis Few; Ovalocytes Few; Platelet Estimate Consistent w Auto
[2019-05-26 08:42] LABS: Platelet Count 40 K/mm3 (140-440)
--- NOTE | 2019-05-26 08:53 | Consultation ---
History of Present Illness Consult date: 05/26/19 Requesting physician: JULIET MAYO Reason for consult: other (Severe Symptomatic Anemia) History of present illness: PCCM CONSULT NOTE (Full dictation # [id number]) Please see dictated notes for full details Medications and Allergies Allergies Allergy/AdvReac Type Severity Reaction Status Date / Time No Known Allergies Allergy Verified 05/25/19 20:14 Home Medications Medication Instructions Recorded Confirmed Last Taken Type Acetaminophen [Tylenol] 500 mg PO Q6HR 05/26/19 05/26/19 Unknown History Amlodipine Besylate [Norvasc] 5 mg PO DAILY 05/26/19 05/26/19 Unknown History HYDROcodone/APAP 5-325 [[place] 1 each PO Q6HR PRN 05/26/19 05/26/19 Unknown History 5/325] Loratadine [Claritin] 10 mg PO DAILY 05/26/19 05/26/19 Unknown History Metformin HCl [metFORMIN] 1,000 mg PO BID 05/26/19 05/26/19 Unknown History Polyethylene Glycol 3350 [Miralax 17 gm PO QDAY 05/26/19 05/26/19 Unknown History 3350] Venlafaxine [Effexor] 75 mg PO BID 05/26/19 05/26/19 Unknown History Active Meds: Active Medications Acetaminophen (Tylenol) 650 mg PO Q4H PRN PRN Reason: Pain MILD(1-3)/Fever >100.5/[place] Albuterol/Ipratropium (Duoneb *Not For Prn Use*) 1 ampul IH Q6HRT [facility] Last Admin: 05/26/19 08:19 Dose: 1 ampul Documented by: Dextrose (D50w (25gm) Syringe) 50 ml IV PRN PRN PRN Reason: Hypoglycemia Furosemide (Lasix) 20 mg IV 0600,1800 [facility] Last Admin: 05/26/19 06:15 Dose: 20 mg Documented by: Nitroglycerin/Dextrose (Tridil Drip 50mg/250ml) 50 mg in 250 mls @ 3 mls/hr IV TITR [facility]; Protocol Last Titration: 05/26/19 04:24 Dose: 10 mcg/min, 3 mls/hr Documented by: Piperacillin Sod/Tazobactam Sod (Zosyn/Ns 3.375gm/50ml) 3.375 gm in 50 mls @ 100 mls/hr IV Q8H [facility] Last Admin: 05/26/19 05:04 Dose: 100 mls/hr Documented by: Insulin Human Lispro (Humalog) 0 unit SUB-Q Q6HR [facility]; Protocol Last Admin: 05/26/19 06:14 Dose: Not Given Documented by: Ondansetron HCl (Zofran) 4 mg IV Q8H PRN PRN Reason: Nausea And Vomiting Sodium Chloride (Sodium Chloride Flush Syringe 10 Ml) 10 ml IV BID [facility] Sodium Chloride (Sodium Chloride Flush Syringe 10 Ml) 10 ml IV PRN PRN PRN Reason: LINE FLUSH Last Admin: 05/26/19 06:15 Dose: 10 ml Documented by: Tbo-Filgrastim (Granix) 300 mcg SUB-Q DAILY [facility] Stop: 05/29/19 09:59 Physical Examination Vital signs: Vital Signs Pulse Ox 91 05/25/19 20:06 Results - Laboratory Findings CBC and BMP: 05/26/19 04:50 05/25/19 20:15 ABG POC ABG pH 7.456 (7.35-7.45) H 05/25/19 23:07 POC ABG pCO2 36.7 (35-45) 05/25/19 23:07 POC ABG pO2 121 (80-105) H 05/25/19 23:07 POC ABG HCO3 25.9 (22-26 mml/L) 05/25/19 23:07 POC ABG Total CO2 27 (23-27mmol/L) 05/25/19 23:07 POC ABG O2 Sat 99 05/25/19 23:07 PT/INR, D-dimer PT 18.1 Sec. (12.2-14.9) H 05/25/19 20:15 INR 1.54 (0.87-1.13) H 05/25/19 20:15 609.27 ng/mlDDU (0-234) H 05/25/19 20:15 Abnormal lab findings: Abnormal Labs 05/25/19 05/25/19 05/25/19 20:15 20:15 20:15 WBC 1.1 L* RBC 1.93 L Hgb 6.0 L Hct 18.2 L* RDW 22.6 H Plt Count 48 L Monocytes % (Manual) 19.0 H Eosinophils % (Manual) 7.0 H Basophils % (Manual) 3.0 H Nucleated RBC % Seg Neutrophils # Man 0.5 L Lymphocytes # (Manual) 0.3 L PT 18.1 H INR 1.54 H APTT 40.6 H D-Dimer 609.27 H POC ABG pH POC ABG pO2 BUN 19 H POC Glucose Calcium 8.3 L Total Bilirubin 1.40 H ALT < 5 L Total Creatine Kinase CK-MB (CK-2) Rel Index NT-Pro-B Natriuret Pep Albumin 3.6 L Crossmatch 05/25/19 05/25/19 05/25/19 20:15 21:43 23:07 WBC RBC Hgb Hct RDW Plt Count Monocytes % (Manual) Eosinophils % (Manual) Basophils % (Manual) Nucleated RBC % Seg Neutrophils # Man Lymphocytes # (Manual) PT INR APTT D-Dimer POC ABG pH 7.456 H POC ABG pO2 121 H BUN POC Glucose Calcium Total Bilirubin ALT Total Creatine Kinase 17 L CK-MB (CK-2) Rel Index NT-Pro-B Natriuret Pep 5267 H Albumin Crossmatch See Detail 05/26/19 05/26/19 05/26/19 04:50 04:50 06:20 WBC 1.1 L* RBC 2.16 L Hgb 6.6 L Hct 19.7 L* RDW 18.4 H Plt Count 40 L Monocytes % (Manual) 10.0 H Eosinophils % (Manual) Basophils % (Manual) Nucleated RBC % 3.0 H Seg Neutrophils # Man 0.6 L Lymphocytes # (Manual) 0.3 L PT INR APTT D-Dimer POC ABG pH POC ABG pO2 BUN POC Glucose 122 H Calcium Total Bilirubin ALT Total Creatine Kinase 8 L CK-MB (CK-2) Rel Index 12.5 H NT-Pro-B Natriuret Pep Albumin Crossmatch
[2019-05-26 09:37] LABS: Creatine Kinase MB < 1.0 ng/mL (0.0-4.0)
--- NOTE | 2019-05-26 10:36 | Consultation ---
History of Present Illness Consult date: 05/26/19 Requesting physician: JULIET MAYO Consult reason: congestive heart failure History of present illness: The pt is a 78-year-old woman with a past medical history of myelodysplastic syndrome (followed by Dr. Montez), hypertension, diabetes, anemia. She is previously unknown to our practice. She presented with c/o progressively worsening SOB, orthopnea and BLE swelling for 1 day prior to arrival. She describes her chest pain as an intermittent substernal sharp pain which is aggravated by deep inspiration. She denies any palpitations, n/v, diaphoresis, dizziness or syncope. Pt was d/c from [facility] on 05/13/2019 after eval/treatment of anemia requiring PRBC and platelet transfusion, MIRELLA, sepsis, abscess of right index finger (wound cx with "light growth MRSA" per discharge summary). Following arrival to ED, pt found to be hypoxic, with minimal lower extremity edema, JVD, no crackles, no rales, bedside ultrasound performed by ED physician was thought to suggest a ? pericardial effusion, ejection fraction approximately 50%. Pt was initiated on tiara gtt overnight. On evaluation, pt states she is feeling better. She remains on nitro gtt at 10mcg/min with SBP 160s, no current chest pain. Echo done 07/2016 at [facility] showed EF 55-60%, mild LVH. Past History Past Medical History: anemia, diabetes, hypertension, other (MDS) Past Surgical History: cholecystectomy Social history: denies: smoking, alcohol abuse, prescription drug abuse Medications and Allergies Allergies Allergy/AdvReac Type Severity Reaction Status Date / Time No Known Allergies Allergy Verified 05/25/19 20:14 Home Medications Medication Instructions Recorded Confirmed Last Taken Type Acetaminophen [Tylenol] 500 mg PO Q6HR 05/26/19 05/26/19 Unknown History Amlodipine Besylate [Norvasc] 5 mg PO DAILY 05/26/19 05/26/19 Unknown History HYDROcodone/APAP 5-325 [[place] 1 each PO Q6HR PRN 05/26/19 05/26/19 Unknown History 5/325] Loratadine [Claritin] 10 mg PO DAILY 05/26/19 05/26/19 Unknown History Metformin HCl [metFORMIN] 1,000 mg PO BID 05/26/19 05/26/19 Unknown History Polyethylene Glycol 3350 [Miralax 17 gm PO QDAY 05/26/19 05/26/19 Unknown History 3350] Venlafaxine [Effexor] 75 mg PO BID 05/26/19 05/26/19 Unknown History Active Meds: Active Medications Acetaminophen (Tylenol) 650 mg PO Q4H PRN PRN Reason: Pain MILD(1-3)/Fever >100.5/[place] Albuterol/Ipratropium (Duoneb *Not For Prn Use*) 1 ampul IH Q6HRT [facility] Last Admin: 05/26/19 08:19 Dose: 1 ampul Documented by: Amlodipine Besylate (Norvasc) 5 mg PO DAILY [facility] Dextrose (D50w (25gm) Syringe) 50 ml IV PRN PRN PRN Reason: Hypoglycemia Furosemide (Lasix) 20 mg IV 0600,1800 [facility] Last Admin: 05/26/19 06:15 Dose: 20 mg Documented by: Nitroglycerin/Dextrose (Tridil Drip 50mg/250ml) 50 mg in 250 mls @ 3 mls/hr IV TITR [facility]; Protocol Last Titration: 05/26/19 04:24 Dose: 10 mcg/min, 3 mls/hr Documented by: Piperacillin Sod/Tazobactam Sod (Zosyn/Ns 3.375gm/50ml) 3.375 gm in 50 mls @ 100 mls/hr IV Q8H [facility] Last Admin: 05/26/19 05:04 Dose: 100 mls/hr Documented by: Insulin Human Lispro (Humalog) 0 unit SUB-Q Q6HR [facility]; Protocol Last Admin: 05/26/19 06:14 Dose: Not Given Documented by: Metoprolol Tartrate (Lopressor) 25 mg PO BID [facility] Ondansetron HCl (Zofran) 4 mg IV Q8H PRN PRN Reason: Nausea And Vomiting Pneumococcal Polyvalent Vaccine (Pneumovax 23) 0.5 ml IM .ONCE ONE Stop: 05/27/19 12:01 Sodium Chloride (Sodium Chloride Flush Syringe 10 Ml) 10 ml IV BID [facility] Sodium Chloride (Sodium Chloride Flush Syringe 10 Ml) 10 ml IV PRN PRN PRN Reason: LINE FLUSH Last Admin: 05/26/19 06:15 Dose: 10 ml Documented by: Tbo-Filgrastim (Granix) 300 mcg SUB-Q DAILY [facility] Stop: 05/29/19 09:59 Review of Systems Constitutional: no weight loss, no weight gain Ears, nose, mouth and throat: no ear pain, no nose pain, no sinus pressure, no sinus pain Cardiovascular: chest pain, orthopnea, shortness of breath, dyspnea on exertion, high blood pressure, leg edema, no palpitations, no rapid/irregular heart beat, no syncope, no lightheadedness Respiratory: cough, shortness of breath, dyspnea on exertion, pain on inspiration, no cough with sputum, no congestion, no wheezing Gastrointestinal: no abdominal pain, no nausea, no vomiting, no diarrhea, no constipation, no change in bowel habits Genitourinary Female: no pelvic pain, no flank pain, no dysuria, no urinary frequency, no urgency Musculoskeletal: no neck stiffness, no neck pain, no shooting arm pain, no arm numbness/tingling, no low back pain, no shooting leg pain Integumentary: no rash, no pruritis Neurological: no head injury, no paralysis, no weakness, no parathesias, no numbness, no tingling Psychiatric: no anxiety Endocrine: no cold intolerance, no heat intolerance Hematologic/Lymphatic: no easy bruising, no easy bleeding Allergic/Immunologic: no urticaria Physical Examination Vital Signs Pulse Ox 91 05/25/19 20:06 General appearance: no acute distress HEENT: Positive: PERRL, Normocephaly, Mucus Membranes Moist Neck: Positive: neck supple, trachea midline Cardiac: Positive: Reg Rate and Rhythm, S1/S2 Lungs: Positive: Decreased Breath Sounds Neuro: Positive: Grossly Intact Abdomen: Negative: Tender Skin: Negative: Rash Musculoskeletal: No Pain Extremities: Absent: edema Results 05/26/19 04:50 05/25/19 20:15 Cardiac Enzymes 05/25/19 05/26/19 05/26/19 Range/Units 20:15 04:50 08:46 AST 7 (5-40) units/L CK-MB (CK-2) < 1.0 < 1.0 (0.0-4.0) ng/mL Coagulation 05/25/19 Range/Units 20:15 PT 18.1 H (12.2-14.9) Sec. INR 1.54 H (0.87-1.13) APTT 40.6 H (24.2-36.6) Sec. CBC 05/25/19 05/26/19 Range/Units 20:15 04:50 WBC 1.1 L* 1.1 L* (4.5-11.0) K/mm3 RBC 1.93 L 2.16 L (3.65-5.03) M/mm3 Hgb 6.0 L 6.6 L (10.1-14.3) gm/dl Hct 18.2 L* 19.7 L* (30.3-42.9) % Plt Count 48 L 40 L (140-440) K/mm3 Comprehensive Metabolic Panel 05/25/19 Range/Units 20:15 Sodium 142 (137-145) mmol/L Potassium 3.8 (3.6-5.0) mmol/L Chloride 101.4 (98-107) mmol/L Carbon Dioxide 26 (22-30) mmol/L BUN 19 H (7-17) mg/dL Creatinine 0.9 (0.7-1.2) mg/dL Glucose 95 (65-100) mg/dL Calcium 8.3 L (8.4-10.2) mg/dL AST 7 (5-40) units/L ALT < 5 L (7-56) units/L Alkaline Phosphatase 59 (35-129) units/L Total Protein 7.0 (6.3-8.2) g/dL Albumin 3.6 L (3.9-5) g/dL - Imaging and Cardiology Echo: pending, report reviewed (07/2016 at [facility] showed EF 55-60%, mild LVH. ) EKG: report reviewed, image reviewed EKG interpretations - Telemetry EKG Rhythm: Sinus Rhythm - EKG Sinus rhythms and dysrhythmias: sinus rhythm Assessment and Plan Elevated DDimer - chest CTA negative for PE. Optimize BPs - resume home norvasc and initiate lopressor. Wean off nitro gtt for SBP <150mmHg. Once nitro gtt weaned off, pt may tx out of CCU to telemetry from cardiology standpoint. Continue IV lasix BID. Obtain echo. Further recs to follow per hospital course. The patient has been seen in conjunction with Dr. Faria who agrees with the assessment and plan of care. - Patient Problems (1) Acute heart failure with preserved ejection fraction Current Visit: Yes Status: Acute (2) Accelerated hypertension Current Visit: Yes Status: Acute (3) Chest pain Current Visit: Yes Status: Acute (4) Pancytopenia Current Visit: Yes Status: Chronic (5) Myelodysplastic syndrome Current Visit: Yes Status: Acute (6) Diabetes Current Visit: Yes Status: Chronic (7) History of MRSA infection Current Visit: Yes Status: Acute Plan to address problem: right index finger
[2019-05-26] MEDS: LOPRESSOR PO SCH ×2 (11:57→22:00)
[2019-05-26] MEDS: NORVASC PO SCH (11:58)
[2019-05-26] MEDS ORDERED: GRANIX SUB-Q SCH (14:00)
[2019-05-26] MEDS: GRANIX SUB-Q SCH (15:13)
--- NOTE | 2019-05-26 17:31 | Progress Note ---
Assessment and Plan Assessment and plan: Acute hypoxic resp failure. Etiology sec to HF Elevated DDimer - chest CTA negative for PE. Acute HFpEF. Continue IV lasix BID. Obtain echo Cardiology consulted Accelerated HTN. Optimize BPs - resume home norvasc and cards initiated lopressor. Wean off nitro gtt for SBP <150mmHg. Once nitro gtt weaned off, pt may tx out of CCU to telemetry from cardiology standpoint. MDS. Pt with Pancytopenia/anemia--PRBCs ordered Heme/Onc following DM II. Accucheks ac and hs. SSRI History Interval history: No new issues overnight Hospitalist Physical - Constitutional Vitals: Temp Pulse Resp BP Pulse Ox 98.6 F 98 H 17 145/52 97 05/26/19 15:52 05/26/19 14:00 05/26/19 14:00 05/26/19 11:58 05/26/19 08:46 General appearance: Present: no acute distress - EENT Eyes: Present: PERRL, EOM intact ENT: hearing intact, clear oral mucosa, dentition normal - Neck Neck: Present: supple, normal ROM - Respiratory Respiratory effort: normal Respiratory: bilateral: CTA - Cardiovascular Rhythm: regular Heart Sounds: Present: S1 & S2. Absent: gallop, rub - Extremities Extremities: no ischemia, No edema, Full ROM - Abdominal General gastrointestinal: soft, non-tender, non-distended, normal bowel sounds - Integumentary Integumentary: Present: clear, warm, dry - Neurologic Neurologic: CNII-XII intact, moves all extremities Results - Labs CBC & Chem 7: 05/26/19 04:50 05/25/19 20:15 Labs: Laboratory Last Values WBC 1.1 K/mm3 (4.5-11.0) L* 05/26/19 04:50 RBC 2.16 M/mm3 (3.65-5.03) L 05/26/19 04:50 Hgb 6.6 gm/dl (10.1-14.3) L 05/26/19 04:50 Hct 19.7 % (30.3-42.9) L* 05/26/19 04:50 MCV 91 fl (79-97) 05/26/19 04:50 MCH 31 pg (28-32) 05/26/19 04:50 MCHC 34 % (30-34) 05/26/19 04:50 RDW 18.4 % (13.2-15.2) H 05/26/19 04:50 Plt Count 40 K/mm3 (140-440) L 05/26/19 04:50 [place] % (Auto) Flat Lock Operator 05/26/19 04:50 Baso % (Auto) Flat Lock Operator 05/25/19 20:15 Add Manual Diff Complete 05/26/19 04:50 Total Counted 100 05/26/19 04:50 Seg Neuts % (Manual) 54.0 % (40.0-70.0) 05/26/19 04:50 3.0 % 05/26/19 04:50 31.0 % (13.4-35.0) 05/26/19 04:50 Reactive Lymphs % (Man) 0 % 05/26/19 04:50 10.0 % (0.0-7.3) H 05/26/19 04:50 0 % (0.0-4.3) 05/26/19 04:50 0 % (0.0-1.8) 05/26/19 04:50 2.0 % 05/26/19 04:50 0 % 05/26/19 04:50 0 % 05/26/19 04:50 0 % 05/26/19 04:50 Nucleated RBC % 3.0 % (0.0-0.9) H 05/26/19 04:50 Seg Neutrophils # Man 0.6 K/mm3 (1.8-7.7) L 05/26/19 04:50 Band Neutrophils # 0.0 K/mm3 05/26/19 04:50 0.3 K/mm3 (1.2-5.4) L 05/26/19 04:50 Abs React Lymphs (Man) 0.0 K/mm3 05/26/19 04:50 0.1 K/mm3 (0.0-0.8) 05/26/19 04:50 0.0 K/mm3 (0.0-0.4) 05/26/19 04:50 0.0 K/mm3 (0.0-0.1) 05/26/19 04:50 0.0 K/mm3 05/26/19 04:50 0.0 K/mm3 05/26/19 04:50 0.0 K/mm3 05/26/19 04:50 Blast Cells # 0.0 K/mm3 05/26/19 04:50 WBC Morphology Not Reportable 05/26/19 04:50 Hypersegmented Neuts Not Reportable 05/26/19 04:50 Hyposegmented Neuts Not Reportable 05/26/19 04:50 Hypogranular Neuts Not Reportable 05/26/19 04:50 Not Reportable 05/26/19 04:50 Not Reportable 05/26/19 04:50 Not Reportable 05/26/19 04:50 Not Reportable 05/26/19 04:50 Not Reportable 05/26/19 04:50 Not Reportable 05/26/19 04:50 Consistent w auto 05/26/19 04:50 Not Reportable 05/26/19 04:50 Plt Clumps, EDTA Not Reportable 05/26/19 04:50 1+ 05/26/19 04:50 Not Reportable 05/26/19 04:50 Not Reportable 05/26/19 04:50 Plt Morphology Comment Not Reportable 05/26/19 04:50 RBC Morphology Not Reportable 05/26/19 04:50 Dimorphic RBCs Not Reportable 05/26/19 04:50 Few 05/26/19 04:50 1+ 05/26/19 04:50 Not Reportable 05/26/19 04:50 Not Reportable 05/26/19 04:50 Not Reportable 05/26/19 04:50 Few 05/26/19 04:50 Not Reportable 05/26/19 04:50 Not Reportable 05/26/19 04:50 Not Reportable 05/26/19 04:50 Not Reportable 05/26/19 04:50 Not Reportable 05/26/19 04:50 Few 05/26/19 04:50 Not Reportable 05/26/19 04:50 Not Reportable 05/26/19 04:50 Not Reportable 05/26/19 04:50 Not Reportable 05/26/19 04:50 Not Reportable 05/26/19 04:50 Not Reportable 05/26/19 04:50 Not Reportable 05/26/19 04:50 Acanthocytes (Spur) Not Reportable 05/26/19 04:50 Rouleaux Not Reportable 05/26/19 04:50 Not Reportable 05/26/19 04:50 Not Reportable 05/26/19 04:50 Not Reportable 05/26/19 04:50 Not Reportable 05/26/19 04:50 Hem Pathologist Commnt No 05/26/19 04:50 PT 18.1 Sec. (12.2-14.9) H 05/25/19 20:15 INR 1.54 (0.87-1.13) H 05/25/19 20:15 APTT 40.6 Sec. (24.2-36.6) H 05/25/19 20:15 609.27 ng/mlDDU (0-234) H 05/25/19 20:15 POC ABG pH 7.456 (7.35-7.45) H 05/25/19 23:07 POC ABG pCO2 36.7 (35-45) 05/25/19 23:07 POC ABG pO2 121 (80-105) H 05/25/19 23:07 POC ABG HCO3 25.9 (22-26 mml/L) 05/25/19 23:07 POC ABG Total CO2 27 (23-27mmol/L) 05/25/19 23:07 POC ABG O2 Sat 99 05/25/19 23:07 POC ABG Base Excess 2 ((-2) - (+3)mmol/L) 05/25/19 23:07 40 % 05/25/19 23:07 Sodium 142 mmol/L (137-145) 05/25/19 20:15 Potassium 3.8 mmol/L (3.6-5.0) 05/25/19 20:15 Chloride 101.4 mmol/L (98-107) 05/25/19 20:15 Carbon Dioxide 26 mmol/L (22-30) 05/25/19 20:15 18 mmol/L 05/25/19 20:15 BUN 19 mg/dL (7-17) H 05/25/19 20:15 0.9 mg/dL (0.7-1.2) 05/25/19 20:15 Estimated GFR > 60 ml/min 05/25/19 20:15 21 % 05/25/19 20:15 Glucose 95 mg/dL (65-100) 05/25/19 20:15 POC Glucose 122 (70-105) H 05/26/19 06:20 Lactic Acid 1.10 mmol/L (0.7-2.0) 05/25/19 21:43 Calcium 8.3 mg/dL (8.4-10.2) L 05/25/19 20:15 Magnesium 2.10 mg/dL (1.7-2.3) 05/25/19 20:15 1.40 mg/dL (0.1-1.2) H 05/25/19 20:15 AST 7 units/L (5-40) 05/25/19 20:15 ALT < 5 units/L (7-56) L 05/25/19 20:15 59 units/L (35-129) 05/25/19 20:15 < 7 units/L (30-135) L 05/26/19 08:46 CK-MB (CK-2) < 1.0 ng/mL (0.0-4.0) 05/26/19 08:46 CK-MB (CK-2) Rel Index 0.0 (0-4) 05/26/19 08:46 < 0.010 ng/mL (0.00-0.029) 05/26/19 08:46 12.60 mg/dL (0.00-1.30) H 05/26/19 Unknown NT-Pro-B Natriuret Pep 5267 pg/mL (0-900) H 05/25/19 20:15 7.0 g/dL (6.3-8.2) 05/25/19 20:15 3.6 g/dL (3.9-5) L 05/25/19 20:15 1.1 % 05/25/19 20:15 TSH 1.200 mlU/mL (0.270-4.200) 05/25/19 20:15 Blood Type O POSITIVE 05/25/19 21:43 Antibody Screen Negative 05/25/19 21:43 Crossmatch See Detail 05/25/19 21:43 Active Medications - Current Medications Current Medications: Generic Name Dose Route Start Last Admin Trade Name Freq PRN Reason Stop Dose Admin Acetaminophen 650 mg 05/26/19 00:23 Tylenol PO Q4H PRN Pain MILD(1-3)/Fever >100.5/COLUNGA Albuterol/Ipratropium 1 ampul 05/26/19 02:00 05/26/19 14:38 Duoneb *Not For Prn Use* IH 1 ampul Q6HRT [facility] Administration Amlodipine Besylate 5 mg 05/26/19 11:00 05/26/19 11:58 Norvasc PO 5 mg DAILY [facility] Administration Dextrose 50 ml 05/26/19 00:23 D50w (25gm) Syringe IV PRN PRN Hypoglycemia Famotidine 20 mg 05/26/19 13:00 Pepcid PO QDAY [facility] Furosemide 20 mg 05/26/19 06:00 05/26/19 06:15 Lasix IV 20 mg 0600,1800 [facility] Administration Piperacillin Sod/Tazobactam Sod 3.375 gm in 50 mls @ 100 mls/hr 05/26/19 14:00 05/26/19 15:23 Zosyn/Ns 3.375gm/50ml IV 100 mls/hr Q8H [facility] Administration Insulin Human Lispro 0 unit 05/26/19 06:00 05/26/19 06:14 Humalog SUB-Q Not Given Q6HR [facility] Protocol Metoprolol Tartrate 25 mg 05/26/19 11:00 05/26/19 11:57 Lopressor PO 25 mg BID [facility] Administration Ondansetron HCl 4 mg 05/26/19 00:23 Zofran IV Q8H PRN Nausea And Vomiting Pneumococcal Polyvalent Vaccine 0.5 ml 05/27/19 12:00 Pneumovax 23 IM 05/27/19 12:01 .ONCE ONE Sodium Chloride 10 ml 05/26/19 10:00 Sodium Chloride Flush Syringe 10 Ml IV BID [facility] Sodium Chloride 10 ml 05/26/19 00:23 05/26/19 06:15 Sodium Chloride Flush Syringe 10 Ml IV 10 ml PRN PRN Administration LINE FLUSH Tbo-Filgrastim 300 mcg 05/26/19 10:00 05/26/19 15:13 Granix SUB-Q 05/29/19 09:59 300 mcg DAILY [facility] Administration
[2019-05-26] MEDS: TYLENOL PO PRN (20:12)
[2019-05-26] MEDS: SODIUM CHLORIDE FLUSH SYRINGE 10 ML IV SCH (22:00)
--- NOTE | 2019-05-27 00:02 | Consultation ---
PULMONARY CRITICAL CARE CONSULT CONSULTING PHYSICIANS: Dr. Aniya Jimenez and Dr. Siegel, Emergency Room doctor. REASON FOR CONSULTATION: Acute hypoxemic respiratory failure, congestive heart failure, symptomatic anemia. CHIEF COMPLAINT AND HISTORY OF PRESENT ILLNESS: As follows: The patient is a 78-year-old -F[place]ian female with past medical history significant for a diagnosis of myelodysplastic syndrome, but also with hypertension and diabetic, came into the Emergency Room after 1 day of increasing lethargy and weakness. On the day of presentation, it progressed to shortness of breath at rest, feeling dizzy. She complained of some chest pain/epigastric pain. She described it as sharp, constant, 10/10, no radiation, no exacerbating or relieving factors. She had earlier been seen at [facility] about 1-1/2 weeks ago. At that time, she had sustained a fall. She required 4 units of packed red cells while she was over there. In the Emergency Room, she was found to be hypertensive. She was started on nitroglycerin drip also for the chest pain, required bilevel positive air pressure ventilation therapy for support. She is admitted to the Intensive Care Unit where I stopped by to see her. When I stopped by to see her, she was resting in bed. She denied any nausea or vomiting. She was feeling a little bit better. She denied any sick contacts at home. She denied any cough or expectoration. She states she was up-to-date on her flu and pneumonia vaccination, but had not received any this year. This really is as much of the history of presentation as I have. I should mention she denied any rhinorrhea, nasal congestion, stuffiness, any diarrhea or any suggestion of a viral syndrome, otherwise. She denied any sore throat, also. This really is as much of the history of presentation as I have. PAST MEDICAL HISTORY: Myelodysplastic syndrome, hypertension, diabetes, anemia. PAST SURGICAL HISTORY: She has had a cholecystectomy in the past. MEDICATIONS: She was on at the time I stopped by to see were reviewed. Pertinent medications included the following: Tylenol 650 mg p.o. q. 4 hours p.r.n. mild pain or fevers, DuoNeb nebulizer treatments scheduled q. 6 hours, Norvasc 5 mg p.o. daily, Lasix 20 mg IV b.i.d., insulin via sliding scale, Lopressor 25 mg p.o. b.i.d., Tridil drip, nitroglycerin drip was going at 10 mcg per minute, Zofran 4 mg IV q. 8 hours p.r.n. nausea and vomiting, Zosyn 3.375 grams IV q.8 hours. She received a dose of Pneumovax in the ER. She has received a dose of Granix/filgrastim 300 mcg subcutaneous and scheduled also for daily. ALLERGIES: No known drug allergies. DIET: Petite lady. Denies acute weight loss or gain in the preceding few weeks to months. FAMILY AND SOCIAL HISTORY: Lives in the community. She denies alcohol, tobacco, or illicit drug use or abuse. There is a family history of hypertension and diabetes. REVIEW OF SYSTEMS: No overt loss of consciousness. No new onset seizures. No new onset focal weakness. Denies gross hematochezia or melena. Denies gross hematuria or dysuria. Denied hematemesis. Denied hematochezia. She does have the abdominal pain. She denied any cough or expectoration. She denies any joint pains, muscle pains or swelling. She denies any new rash or petechiae. She denies any itching. She denies heat or cold intolerance. Denies polyuria. Denies polydipsia. Complete 13-system review of systems obtained. Pertinent positives and/or negatives as in body of history above, otherwise are noncontributory. PHYSICAL EXAMINATION: VITAL SIGNS: On examination at presentation, she had a low-grade temperature of 99.3 degrees Fahrenheit with a pulse of 81, respiratory rate of 20 and blood pressure 118/83, O2 sats were 91%, inspired oxygen concentration at that time was not recorded. When I stopped by to see her, O2 sats were 98% and that was on 3 liters nasal cannula. GENERAL: She is elderly looking -Fijian female, normocephalic, atraumatic, talking to me in uninterrupted sentences, but with mildly increased respiratory effort at rest. HEAD, EYES, EARS, NOSE AND THROAT: She is anicteric. Again, no conjunctival erythema. Oropharynx is moist. Mallampati #2 oropharynx. No gross jugular venous distention, no thyromegaly. Grossly no palpable lymph nodes in the supraclavicular or submandibular lymph node chains. LUNGS: Auscultation of both lung schwartz significant for inspiratory bibasilar rhonchi, no wheezing. HEART: Heart sounds 1 and 2 are heard at the time of my evaluation, regular rate and rhythm without overt rubs or murmurs. ABDOMEN: Soft, full. Bowel sounds are positive. Mild epigastric tenderness, no palpable hepatosplenomegaly. EXTREMITIES: Without overt digital clubbing, no cyanosis, no pedal edema. Pedal pulses are strong bilaterally to pulse. NEUROLOGIC: Pupils are equal, round, about 3 mm, reactive to light. Extraocular muscle movements are intact. Cranial nerves 2-12 are intact. She moves all 4 extremities spontaneously. Sensation is intact. Speech is fluent. No aphasia. SKIN: Normal turgor without overt cellulitis or rash. PSYCHIATRIC: Her mood was normal. Her affect was appropriate. LABORATORY DATA: From my review are as follows: White cell count 1100, hemoglobin 6.0, hematocrit 18.2, platelet count 48, no band forms reported. INR 1.54. D-dimer was elevated at 609. Arterial blood gas showed a pH of 7.46, pCO2 of 37, pO2 of 121 and that was on 40% FiO2. Serum sodium was 142, potassium 3.8, chloride 101, bicarbonate 26, BUN 19, creatinine 0.9, glucose was 95. Lactic acid level was within normal limits. Total bilirubin slightly up at 1.4. AST, ALT within normal limits. Troponin within normal limits. BNP was up 5267. TSH was within normal limits. Blood cultures no growth to date. I have reviewed the chest x-ray. I have also reviewed the radiologist's interpretation. I do agree increased interstitial markings, small bilateral pleural effusions, cardiomegaly, all consistent with mild interstitial edema, no gross pneumothorax, no gross bony fracture. She also had a CT angiogram done. I have reviewed the interpretation as well as the film. I do not see any gross filling defects consistent with large first or second order pulmonary emboli. I see right greater than left pleural effusion and the lung windows do show ground glass opacifications consistent with pulmonary edema as well as significant motion artifact that obscures the film overall. ASSESSMENT: 1. Acute hypoxemic respiratory failure. 2. Symptomatic anemia. 3. Acute congestive heart failure exacerbation. 4. Pancytopenia. 5. History of myelodysplastic syndrome. 6. History of diabetes. 7. Elevated D-dimer. 8. Elevated BNP. 9. Hyperbilirubinemia. PLAN: We will continue supplemental oxygen, wean to keep sats greater than or equal to about 90%. Aspiration precautions will be maintained. We will continue bronchodilator treatments in the short time and change to p.r.n. shortly. Bilevel positive airway pressure ventilation therapy will be offered for increased work of breathing. She may benefit from sleep study and see if she will benefit from at bedtime, BiPAP or CPAP therapy. Cardiology evaluation is ongoing. We will keep her on the nitroglycerin drip for now. EKG was done at admission. We will look for the EKG and review and I do have a copy. No ST elevations. She, however, does have some nonspecific lateral T-wave changes and flattening. We will continue the empiric antibiotic therapy for now. I will add Levaquin to the mix to cover for an atypical community-acquired pneumonia. I will, however, get a CRP level along with lactic acid level, used to aid clinical decision making/rapid de-escalation of antibiotic therapy. I will probably elect to ultimately treat her with Levaquin empirically for community-acquired pneumonia. She has received blood transfusions and has been seen by the retail marketing specialist. She will continue with the filgrastim for now. She will continue with Lasix therapy while keeping a close eye on her BUN and creatinine. Echocardiogram will be at the behest of the green house manager. I will see if she already has someone on file. She will be placed on GI prophylaxis. DVT prophylaxis will be in the form of SCDs. Flu and pneumonia vaccination will be addressed per protocol. Thank you very much for the consult, Dr. Siegel and Dr. Jimenez. We will follow along and make further recommendations as picture progresses/becomes clearer. She is critically ill on life-sustaining interventions including the nitroglycerin and supplemental oxygen at high risk of decompensation including the risk of . At this time, I spent about 35-40 minutes of critical care time without overlap and excluding any procedural time that may be necessary. JOB# [id number] SHRAVAN/SHANNA SANCHEZ
[2019-05-27] MEDS: HumaLOG SUB-Q SCH ×6 (00:21→18:06)
[2019-05-27] MEDS: ZOSYN/NS 3.375GM/50ML 3.375 GM/50 ML BAG IV SCH ×5 (00:26→22:28)
[2019-05-27] MEDS: DUONEB *Not for PRN Use IH SCH ×4 (02:00→19:23)
[2019-05-27 04:18] LABS: Calcium 7.9 mg/dL (8.4-10.2)
[2019-05-27] MEDS: LASIX IV SCH ×2 (06:11→18:48)
--- NOTE | 2019-05-27 07:18 | Hem/Onc Progress Note ---
Assessment and Plan 1. History of myelodysplastic syndrome, anemia, leukopenia, thrombocytopenia. The patient has received first dose of decitabine in the end of March and received G-CSF after that. 2. Recent hospitalization at [place] and received blood transfusion. 3. Is anemic. Transfusion support. 4. BNP high, shortness of breath, chest pain, seen by Cardiology team. 5. For the low platelet, in case of bleeding, transfusion support. 6. Hypertension history. 7. History of diabetes. 8. G-CSF support. 9. BiPAP for respiratory issues. 10. Antibiotic support. 11. For the myelodysplastic syndrome, she would need at least 4 cycles of chemotherapy to evaluate if there is a response. She would need transfusion support in the interim. transfusion support as needed - Patient Problems (1) Neutropenia Current Visit: Yes Status: Acute Subjective Date of service: 05/27/19 Principal diagnosis: MDS Interval history: breathing better Objective - Exam Narrative Exam: Pain - none General appearance - breathing better Performance status limited self care Eyes - no icterus, pallor + ENT - no bleeding LNs cervical not palpable Neck - no LN Respiratory Normal Breath sounds - CTA CVS S1 S2 + Extremities toe - bandage General GI Soft Rectal deferred female - deferred Skin warm Musculoskeletal moving extremitites Neurologically awake - oriented - Constitutional Vitals: Last Vital Signs Temp 98.4 F 05/27/19 04:00 Pulse 72 05/27/19 04:00 Resp 24 05/27/19 04:00 BP 147/45 05/27/19 00:00 Pulse Ox 99 05/27/19 04:00 - Labs Lab Results: Laboratory Results - last 24 hr 05/25/19 05/26/19 05/26/19 21:43 04:50 08:46 Plt Count 40 L Add Manual Diff Complete Total Counted 100 Seg Neuts % (Manual) 54.0 Band Neutrophils % 3.0 Lymphocytes % (Manual) 31.0 Reactive Lymphs % (Man) 0 Monocytes % (Manual) 10.0 H Eosinophils % (Manual) 0 Basophils % (Manual) 0 Metamyelocytes % 2.0 Myelocytes % 0 Promyelocytes % 0 Blast Cells % 0 Nucleated RBC % 3.0 H Seg Neutrophils # Man 0.6 L Band Neutrophils # 0.0 Lymphocytes # (Manual) 0.3 L Abs React Lymphs (Man) 0.0 Monocytes # (Manual) 0.1 Eosinophils # (Manual) 0.0 Basophils # (Manual) 0.0 Metamyelocytes # 0.0 Myelocytes # 0.0 Promyelocytes # 0.0 Blast Cells # 0.0 WBC Morphology Not Reportable Hypersegmented Neuts Not Reportable Hyposegmented Neuts Not Reportable Hypogranular Neuts Not Reportable Smudge Cells Not Reportable Toxic Granulation Not Reportable Toxic Vacuolation Not Reportable Dohle Bodies Not Reportable Pelger-Huet Anomaly Not Reportable Pao Rods Not Reportable Platelet Estimate Consistent w auto Clumped Platelets Not Reportable Plt Clumps, EDTA Not Reportable Large Platelets 1+ Giant Platelets Not Reportable Platelet Satelliting Not Reportable Plt Morphology Comment Not Reportable RBC Morphology Not Reportable Dimorphic RBCs Not Reportable Polychromasia Few Hypochromasia 1+ Poikilocytosis Not Reportable Anisocytosis Not Reportable Microcytosis Not Reportable Macrocytosis Few Spherocytes Not Reportable Pappenheimer Bodies Not Reportable Sickle Cells Not Reportable Target Cells Not Reportable Tear Drop Cells Not Reportable Ovalocytes Few Helmet Cells Not Reportable [place] Bodies Not Reportable Milligan Rings Not Reportable [place] Cells Not Reportable Bite Cells Not Reportable Crenated Cell Not Reportable Elliptocytes Not Reportable Acanthocytes (Spur) Not Reportable Rouleaux Not Reportable Hemoglobin C Crystals Not Reportable Schistocytes Not Reportable Malaria parasites Not Reportable Chung Bodies Not Reportable Hem Pathologist Commnt No Sodium Potassium Chloride Carbon Dioxide Anion Gap BUN Creatinine Estimated GFR BUN/Creatinine Ratio Glucose POC Glucose Calcium Total Creatine Kinase < 7 L CK-MB (CK-2) < 1.0 CK-MB (CK-2) Rel Index 0.0 Troponin T < 0.010 C-Reactive Protein Blood Type O POSITIVE Antibody Screen Negative Crossmatch See Detail 05/26/19 05/26/19 05/27/19 21:44 Unknown 02:19 Plt Count Add Manual Diff Total Counted Seg Neuts % (Manual) Band Neutrophils % Lymphocytes % (Manual) Reactive Lymphs % (Man) Monocytes % (Manual) Eosinophils % (Manual) Basophils % (Manual) Metamyelocytes % Myelocytes % Promyelocytes % Blast Cells % Nucleated RBC % Seg Neutrophils # Man Band Neutrophils # Lymphocytes # (Manual) Abs React Lymphs (Man) Monocytes # (Manual) Eosinophils # (Manual) Basophils # (Manual) Metamyelocytes # Myelocytes # Promyelocytes # Blast Cells # WBC Morphology Hypersegmented Neuts Hyposegmented Neuts Hypogranular Neuts Smudge Cells Toxic Granulation Toxic Vacuolation Dohle Bodies Pelger-Huet Anomaly Pao Rods Platelet Estimate Clumped Platelets Plt Clumps, EDTA Large Platelets Giant Platelets Platelet Satelliting Plt Morphology Comment RBC Morphology Dimorphic RBCs Polychromasia Hypochromasia Poikilocytosis Anisocytosis Microcytosis Macrocytosis Spherocytes Pappenheimer Bodies Sickle Cells Target Cells Tear Drop Cells Ovalocytes Helmet Cells [place] Bodies Milligan Rings Manuel Cells Bite Cells Crenated Cell Elliptocytes Acanthocytes (Spur) Rouleaux Hemoglobin C Crystals Schistocytes Malaria parasites Chung Bodies Hem Pathologist Commnt Sodium 143 Potassium 3.6 Chloride 98.9 Carbon Dioxide 27 Anion Gap 21 BUN 21 H Creatinine 1.1 Estimated GFR 58 BUN/Creatinine Ratio 19 Glucose 92 POC Glucose 161 H Calcium 7.9 L Total Creatine Kinase CK-MB (CK-2) CK-MB (CK-2) Rel Index Troponin T C-Reactive Protein 12.60 H Blood Type Antibody Screen Crossmatch Medications & Allergies - Medications Allergies/Adverse Reactions: Allergies No Known Allergies Allergy (Verified 05/25/19 20:14) Home Medications: Home Medications Medication Instructions Recorded Confirmed Last Taken Type Acetaminophen [Acetaminophen TAB] 500 mg PO Q6HR 05/26/19 05/26/19 Unknown History Venlafaxine [Effexor] 75 mg PO BID 05/26/19 05/26/19 Unknown History Amlodipine Besylate [Norvasc] 5 mg PO DAILY #30 tablet 05/28/19 Unknown Rx HYDROcodone/APAP 5-325 [Morse 1 each PO Q6HR PRN #10 tablet 05/28/19 Unknown Rx 5-325 mg TAB] Loratadine [Claritin] 10 mg PO DAILY #30 tablet 05/28/19 Unknown Rx Metformin HCl [metFORMIN] 1,000 mg PO BID #60 tablet 05/28/19 Unknown Rx Metoprolol [Lopressor TAB] 25 mg PO BID #60 tablet 05/28/19 Unknown Rx Polyethylene Glycol 3350 [Miralax 17 gm PO QDAY #30 powd.pack 05/28/19 Unknown Rx 3350] Active Medications: Generic Name Dose Route Start Last Admin Trade Name Freq PRN Reason Stop Dose Admin Acetaminophen 650 mg 05/26/19 00:23 05/26/19 20:12 Tylenol PO 650 mg Q4H PRN Administration Pain MILD(1-3)/Fever >100.5/COLUNGA Albuterol/Ipratropium 1 ampul 05/26/19 02:00 05/27/19 02:00 Duoneb *Not For Prn Use* IH 1 ampul Q6HRT XOCHITL Administration Amlodipine Besylate 5 mg 05/26/19 11:00 05/26/19 11:58 Norvasc PO 5 mg DAILY XOCHITL Administration Dextrose 50 ml 05/26/19 00:23 D50w (25gm) Syringe IV PRN PRN Hypoglycemia Famotidine 20 mg 05/26/19 13:00 Pepcid PO QDAY XOCHITL Furosemide 20 mg 05/26/19 06:00 05/27/19 06:11 Lasix IV 20 mg 0600,1800 XOCHITL Administration Piperacillin Sod/Tazobactam Sod 3.375 gm in 50 mls @ 100 mls/hr 05/26/19 14:00 05/27/19 06:10 Zosyn/Ns 3.375gm/50ml IV 100 mls/hr Q8H XOCHITL Administration Insulin Human Lispro 0 unit 05/26/19 06:00 05/27/19 06:11 Humalog SUB-Q Not Given Q6HR [facility] Protocol Metoprolol Tartrate 25 mg 05/26/19 11:00 05/26/19 22:00 Lopressor PO Not Given BID [facility] Ondansetron HCl 4 mg 05/26/19 00:23 Zofran IV Q8H PRN Nausea And Vomiting Pneumococcal Polyvalent Vaccine 0.5 ml 05/27/19 12:00 Pneumovax 23 IM 05/27/19 12:01 .ONCE ONE Sodium Chloride 10 ml 05/26/19 10:00 05/26/19 22:00 Sodium Chloride Flush Syringe 10 Ml IV 10 ml BID XOCHITL Administration Sodium Chloride 10 ml 05/26/19 00:23 05/26/19 06:15 Sodium Chloride Flush Syringe 10 Ml IV 10 ml PRN PRN Administration LINE FLUSH Tbo-Filgrastim 300 mcg 05/26/19 10:00 05/26/19 15:13 Granix SUB-Q 05/29/19 09:59 300 mcg DAILY XOCHITL Administration
--- NOTE | 2019-05-27 07:27 | Consultation ---
REFERRING PHYSICIAN: Dr. Siegel/nurse practitioner Mary Jimenez/Dr. Garcia. REASON FOR CONSULTATION: History of MDS, anemia, low platelet, low white cell count. HISTORY OF PRESENT ILLNESS: I saw the patient, a 78-year-old female in the ER. The patient has history of MDS, which was diagnosed in 2016. She had received transfusion support periodically. The patient had received one dose of Vidaza chemotherapy in 2018, but then she was hospitalized and she did not come back until March 2019. 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 The patient started decitabine chemotherapy on 04/20. After that, the patient received G-CSF support. The patient was due to start cycle 2; however, this has been delayed because the patient did not keep the appointment. She came to the hospital because of shortness of breath, dizziness. The patient also has past history of hypertension, diabetes, anemia. The patient had chest pain in the epigastric area. She was at [facility] a few weeks ago after a fall and was given blood transfusion, antibiotics and discharged. The ER physician had called me. Antibiotics were given. Transfusion support was given. Cardiology was consulted. Nitroglycerin drip was started and the patient was placed on BiPAP. At this time, the patient is on BiPAP. She says she is feeling better. She communicates by sign. No vomiting, no diarrhea. As per the ER physician, temperature was 99. No bleeding issues. PAST MEDICAL HISTORY: As above. PAST SURGICAL HISTORY: Gallbladder surgery. FAMILY HISTORY: Diabetes and hypertension. SOCIAL HISTORY: No history of tobacco or alcohol usage. ALLERGIES: None. MEDICATIONS: Include blood pressure medications, G-CSF, antibiotics. PHYSICAL EXAMINATION: VITAL SIGNS: Temperature 97, pulse 74, respirations 16, BP 147/45. HEENT: Pallor present, no icterus. On BiPAP. NECK: No neck lymph nodes. HEART: S1, S2. LUNGS: Decreased air entry. ABDOMEN: Soft. EXTREMITIES: No calf tenderness. NEUROLOGIC: Alert, awake. LABORATORY DATA: White cell 1.1, hemoglobin 6.6, MCV 91, platelet 40, potassium 3.8, creatinine 0.9, calcium 8.3, bilirubin 1.4. BNP 5000. RADIOLOGY: CTA chest, no PE, interstitial pulmonary edema, massive splenomegaly. Enlargement of liver. ASSESSMENT: 1. History of myelodysplastic syndrome, anemia, leukopenia, thrombocytopenia. The patient has received first dose of decitabine in the end of March and received G-CSF after that. 2. Recent hospitalization at [place] and received blood transfusion. 3. Is anemic again. Transfusion support. 4. BNP high, shortness of breath, chest pain, seen by Cardiology team. 5. For the low platelet, in case of bleeding, transfusion support. 6. Hypertension history. 7. History of diabetes. 8. G-CSF support. 9. BiPAP for respiratory issues. 10. Antibiotic support. 11. For the myelodysplastic syndrome, she would need at least 4 cycles of chemotherapy to evaluate if there is a response. She would need transfusion support in the interim. JOB# [id number] SONNY/SHANNA
[2019-05-27] MEDS: SODIUM CHLORIDE FLUSH SYRINGE 10 ML IV SCH ×3 (07:47→22:28)
[2019-05-27] MEDS: PEPCID PO SCH ×2 (07:48→09:38)
[2019-05-27] MEDS: NORVASC PO SCH (09:37)
[2019-05-27] MEDS: LOPRESSOR PO SCH ×2 (09:38→22:24)
[2019-05-27] MEDS: TYLENOL PO PRN ×2 (09:38→22:24)
[2019-05-27] MEDS: GRANIX SUB-Q SCH (10:29)
--- NOTE | 2019-05-27 11:11 | Progress Note ---
Assessment and Plan Acute hypoxemic respiratory failure. Symptomatic anemia. Acute congestive heart failure exacerbation. Pancytopenia. History of myelodysplastic syndrome. History of diabetes. Elevated D-dimer. Elevated BNP. Hyperbilirubinemia - s/p PRBC transfusions - continue filgastrim - pancytopenia per corporate communications manager otherwise - supplemental oxygen as needed to keep O2 sat's > 90% - prn bronchodilators with pulmonary hygiene per RT - gentle diuresis - optimize cardiac function per cardiology team - continue oral antiHTNsive therapy - continue glycemic control with SSI for target BG < 180 mg/dl - GI prophylaxis - VTE prophylaxis with SCD's - continue other care per attending / other consultants ... re-evaluate in am & prn ... OK to transfer out of ICU Subjective Date of service: 05/27/19 Principal diagnosis: Ac hypoxemic resp failure; Anemia; Acute CHF exacerbation; DM II Interval history: Patient is seen today for: Ac hypoxemic resp failure; Symptomatic anemia; Acute congestive heart failure exacerbation; Pancytopenia; History of myelodysplastic syndrome; History of diabetes. Seen and examined at bedside; 24hour events reviewed; nursing and respiratory care staff consulted; no adverse overnight events reported to me; resting peacefully in bed; denies acute chest pains or palpitations; feels better; NO N/V/F/C Objective Vital Signs - 12hr 05/26/19 05/27/19 05/27/19 23:34 00:00 00:13 Temperature 97.6 F Pulse Rate 74 73 Pulse Rate [ Bilateral Throughout] Pulse Rate [ 73 From Monitor] Respiratory 18 Rate Respiratory Rate [Bilateral Throughout] Blood Pressure 147/45 O2 Sat by Pulse 98 Oximetry 05/27/19 05/27/19 05/27/19 01:00 02:00 02:14 Temperature Pulse Rate 69 72 Pulse Rate [ 80 Bilateral Throughout] Pulse Rate [ From Monitor] Respiratory 16 17 Rate Respiratory 19 Rate [Bilateral Throughout] Blood Pressure 128/44 140/53 O2 Sat by Pulse 100 99 Oximetry 05/27/19 05/27/19 05/27/19 03:00 04:00 05:00 Temperature 98.4 F Pulse Rate 72 74 71 Pulse Rate [ Bilateral Throughout] Pulse Rate [ 72 From Monitor] Respiratory 17 22 22 Rate Respiratory Rate [Bilateral Throughout] Blood Pressure 128/47 142/45 136/48 O2 Sat by Pulse 99 99 99 Oximetry 05/27/19 05/27/19 05/27/19 06:00 07:00 08:00 Temperature 98.4 F Pulse Rate 75 70 72 Pulse Rate [ Bilateral Throughout] Pulse Rate [ 72 From Monitor] Respiratory 16 14 15 Rate Respiratory Rate [Bilateral Throughout] Blood Pressure 134/44 126/41 136/50 O2 Sat by Pulse 98 100 100 Oximetry 05/27/19 05/27/19 09:37 09:38 Temperature Pulse Rate 89 89 Pulse Rate [ Bilateral Throughout] Pulse Rate [ From Monitor] Respiratory Rate Respiratory Rate [Bilateral Throughout] Blood Pressure 125/43 125/43 O2 Sat by Pulse Oximetry Constitutional: no acute distress, other (elderly looking AAF, normocephalic and atraumatic) Eyes: non-icteric ENT: oropharynx moist Neck: supple, no lymphadenopathy, no JVD Effort: mildly labored Ascultation: Bilateral: rhonchi Percussion: Bilateral: not dull Cardiovascular: regular rate and rhythm Gastrointestinal: normoactive bowel sounds, soft, non-tender, non-distended Integumentary: normal Extremities: no cyanosis, no edema, pulses normal, no ischemia or petechiae Neurologic: normal mental status, non-focal exam, pupils equal and round, CN II- XII normal Psychiatric: mood appropriate, affect normal CBC and BMP: 05/28/19 09:32 05/27/19 02:19 ABG, PT/INR, D-dimer: ABG POC ABG pH 7.456 (7.35-7.45) H 05/25/19 23:07 POC ABG pCO2 36.7 (35-45) 05/25/19 23:07 POC ABG pO2 121 (80-105) H 05/25/19 23:07 POC ABG HCO3 25.9 (22-26 mml/L) 05/25/19 23:07 POC ABG Total CO2 27 (23-27mmol/L) 05/25/19 23:07 POC ABG O2 Sat 99 05/25/19 23:07 PT/INR, D-dimer PT 18.1 Sec. (12.2-14.9) H 05/25/19 20:15 INR 1.54 (0.87-1.13) H 05/25/19 20:15 609.27 ng/mlDDU (0-234) H 05/25/19 20:15 Abnormal lab findings: Abnormal Labs 05/25/19 05/25/19 05/25/19 20:15 20:15 20:15 WBC 1.1 L* RBC 1.93 L Hgb 6.0 L Hct 18.2 L* RDW 22.6 H Plt Count 48 L Monocytes % (Manual) 19.0 H Eosinophils % (Manual) 7.0 H Basophils % (Manual) 3.0 H Nucleated RBC % Seg Neutrophils # Man 0.5 L Lymphocytes # (Manual) 0.3 L PT 18.1 H INR 1.54 H APTT 40.6 H D-Dimer 609.27 H POC ABG pH POC ABG pO2 BUN 19 H POC Glucose Calcium 8.3 L Total Bilirubin 1.40 H ALT < 5 L Total Creatine Kinase CK-MB (CK-2) Rel Index C-Reactive Protein NT-Pro-B Natriuret Pep Albumin 3.6 L Crossmatch 05/25/19 05/25/19 05/25/19 20:15 21:43 23:07 WBC RBC Hgb Hct RDW Plt Count Monocytes % (Manual) Eosinophils % (Manual) Basophils % (Manual) Nucleated RBC % Seg Neutrophils # Man Lymphocytes # (Manual) PT INR APTT D-Dimer POC ABG pH 7.456 H POC ABG pO2 121 H BUN POC Glucose Calcium Total Bilirubin ALT Total Creatine Kinase 17 L CK-MB (CK-2) Rel Index C-Reactive Protein NT-Pro-B Natriuret Pep 5267 H Albumin Crossmatch See Detail 05/26/19 05/26/19 05/26/19 04:50 04:50 06:20 WBC 1.1 L* RBC 2.16 L Hgb 6.6 L Hct 19.7 L* RDW 18.4 H Plt Count 40 L Monocytes % (Manual) 10.0 H Eosinophils % (Manual) Basophils % (Manual) Nucleated RBC % 3.0 H Seg Neutrophils # Man 0.6 L Lymphocytes # (Manual) 0.3 L PT INR APTT D-Dimer POC ABG pH POC ABG pO2 BUN POC Glucose 122 H Calcium Total Bilirubin ALT Total Creatine Kinase 8 L CK-MB (CK-2) Rel Index 12.5 H C-Reactive Protein NT-Pro-B Natriuret Pep Albumin Crossmatch 09/02/0605/26/19 05/26/19 08:46 21:44 Unknown WBC RBC Hgb Hct RDW Plt Count Monocytes % (Manual) Eosinophils % (Manual) Basophils % (Manual) Nucleated RBC % Seg Neutrophils # Man Lymphocytes # (Manual) PT INR APTT D-Dimer POC ABG pH POC ABG pO2 BUN POC Glucose 161 H Calcium Total Bilirubin ALT Total Creatine Kinase < 7 L CK-MB (CK-2) Rel Index C-Reactive Protein 12.60 H NT-Pro-B Natriuret Pep Albumin Crossmatch 05/27/19 02:19 WBC RBC Hgb Hct RDW Plt Count Monocytes % (Manual) Eosinophils % (Manual) Basophils % (Manual) Nucleated RBC % Seg Neutrophils # Man Lymphocytes # (Manual) PT INR APTT D-Dimer POC ABG pH POC ABG pO2 BUN 21 H POC Glucose Calcium 7.9 L Total Bilirubin ALT Total Creatine Kinase CK-MB (CK-2) Rel Index C-Reactive Protein NT-Pro-B Natriuret Pep Albumin Crossmatch Chest x-ray: image reviewed Allied health notes reviewed: nursing
--- NOTE | 2019-05-27 11:20 | Progress Note ---
Assessment and Plan Echo reviewed - EF 45-50%, mild LVH, mild to mod TR, mild pulm HTN RVSP 49mmHg, minimal pericardial effusion. Currently stable cardiac status. Cont present cardiac management. Pt may tx out of CCU to telemetry from cardiology standpoint. Possible d/c as early as tomorrow. The patient has been seen in conjunction with Dr. Faria who agrees with the assessment and plan of care. - Patient Problems (1) Acute heart failure with preserved ejection fraction Current Visit: Yes Status: Acute (2) Accelerated hypertension Current Visit: Yes Status: Acute (3) Chest pain Current Visit: Yes Status: Acute (4) Pancytopenia Current Visit: Yes Status: Chronic (5) Myelodysplastic syndrome Current Visit: Yes Status: Acute (6) Diabetes Current Visit: Yes Status: Chronic (7) History of MRSA infection Current Visit: Yes Status: Acute Subjective Date of service: 05/27/19 Principal diagnosis: hf; cp Interval history: pt resting comfortably in bed, no current complaints. off nitro gtt. BPs and HR WNL. Objective Last Vital Signs Temp 98.4 F 05/27/19 08:00 Pulse 89 05/27/19 09:38 Resp 15 05/27/19 08:00 BP 125/43 05/27/19 09:38 Pulse Ox 100 05/27/19 08:00 - Physical Examination General: No Apparent Distress HEENT: Positive: PERRL, Normocephaly, Mucus Membranes Moist Neck: Positive: neck supple, trachea midline Cardiac: Positive: Reg Rate and Rhythm, S1/S2 Lungs: Positive: Decreased Breath Sounds Neuro: Positive: Grossly Intact Abdomen: Negative: Tender Skin: Negative: Rash Musculoskeletal: No Pain Extremities: Absent: edema - Labs and Meds Comprehensive Metabolic Panel 05/27/19 Range/Units 02:19 Sodium 143 (137-145) mmol/L Potassium 3.6 (3.6-5.0) mmol/L Chloride 98.9 (98-107) mmol/L Carbon Dioxide 27 (22-30) mmol/L BUN 21 H (7-17) mg/dL Creatinine 1.1 (0.7-1.2) mg/dL Glucose 92 (65-100) mg/dL Calcium 7.9 L (8.4-10.2) mg/dL - Imaging and Cardiology EKG: report reviewed, image reviewed Echo: pending, report reviewed (07/2016 at [place] showed EF 55-60%, mild LVH. ) - EKG Sinus rhythms and dysrhythmias: sinus rhythm
[2019-05-27] MEDS ORDERED: PNEUMOVAX 23 IM ONE (12:00)
--- NOTE | 2019-05-27 13:52 | Progress Note ---
Assessment and Plan Assessment and plan: Acute hypoxic resp failure. Etiology sec to HF and pulm htn Elevated DDimer - chest CTA negative for PE. Acute HFpEF. Continue IV lasix BID. Obtain echo Cardiology consulted Accelerated HTN. Optimize BPs - with norvasc and lopressor. MDS. Pt with Pancytopenia/anemia--PRBCs ordered Heme/Onc following DM II. Accucheks ac and hs. SSRI Disposition. Probable d/c in am History Interval history: No new issues overnight Hospitalist Physical - Constitutional Vitals: Temp Pulse Resp BP Pulse Ox 98.4 F 72 18 125/43 98 05/27/19 08:00 05/27/19 13:26 05/27/19 13:26 05/27/19 09:38 05/27/19 09:00 General appearance: Present: no acute distress - EENT Eyes: Present: PERRL, EOM intact ENT: hearing intact, clear oral mucosa, dentition normal - Neck Neck: Present: supple, normal ROM - Respiratory Respiratory effort: normal Respiratory: bilateral: CTA - Cardiovascular Rhythm: regular Heart Sounds: Present: S1 & S2. Absent: gallop, rub - Extremities Extremities: no ischemia, No edema, Full ROM - Abdominal General gastrointestinal: soft, non-tender, non-distended, normal bowel sounds - Integumentary Integumentary: Present: clear, warm, dry - Neurologic Neurologic: CNII-XII intact, moves all extremities Results - Labs CBC & Chem 7: 05/26/19 04:50 05/27/19 02:19 Labs: Laboratory Last Values WBC 1.1 K/mm3 (4.5-11.0) L* 05/26/19 04:50 RBC 2.16 M/mm3 (3.65-5.03) L 05/26/19 04:50 Hgb 6.6 gm/dl (10.1-14.3) L 05/26/19 04:50 Hct 19.7 % (30.3-42.9) L* 05/26/19 04:50 MCV 91 fl (79-97) 05/26/19 04:50 MCH 31 pg (28-32) 05/26/19 04:50 MCHC 34 % (30-34) 05/26/19 04:50 RDW 18.4 % (13.2-15.2) H 05/26/19 04:50 Plt Count 40 K/mm3 (140-440) L 05/26/19 04:50 [place] % (Auto) Mercantile Reporter 05/26/19 04:50 Baso % (Auto) Mercantile Reporter 05/25/19 20:15 Add Manual Diff Complete 05/26/19 04:50 Total Counted 100 05/26/19 04:50 Seg Neuts % (Manual) 54.0 % (40.0-70.0) 05/26/19 04:50 3.0 % 05/26/19 04:50 31.0 % (13.4-35.0) 05/26/19 04:50 Reactive Lymphs % (Man) 0 % 05/26/19 04:50 10.0 % (0.0-7.3) H 05/26/19 04:50 0 % (0.0-4.3) 05/26/19 04:50 0 % (0.0-1.8) 05/26/19 04:50 2.0 % 05/26/19 04:50 0 % 05/26/19 04:50 0 % 05/26/19 04:50 0 % 05/26/19 04:50 Nucleated RBC % 3.0 % (0.0-0.9) H 05/26/19 04:50 Seg Neutrophils # Man 0.6 K/mm3 (1.8-7.7) L 05/26/19 04:50 Band Neutrophils # 0.0 K/mm3 05/26/19 04:50 0.3 K/mm3 (1.2-5.4) L 05/26/19 04:50 Abs React Lymphs (Man) 0.0 K/mm3 05/26/19 04:50 0.1 K/mm3 (0.0-0.8) 05/26/19 04:50 0.0 K/mm3 (0.0-0.4) 05/26/19 04:50 0.0 K/mm3 (0.0-0.1) 05/26/19 04:50 0.0 K/mm3 05/26/19 04:50 0.0 K/mm3 05/26/19 04:50 0.0 K/mm3 05/26/19 04:50 Blast Cells # 0.0 K/mm3 05/26/19 04:50 WBC Morphology Not Reportable 05/26/19 04:50 Hypersegmented Neuts Not Reportable 05/26/19 04:50 Hyposegmented Neuts Not Reportable 05/26/19 04:50 Hypogranular Neuts Not Reportable 05/26/19 04:50 Not Reportable 05/26/19 04:50 Not Reportable 05/26/19 04:50 Not Reportable 05/26/19 04:50 Not Reportable 05/26/19 04:50 Not Reportable 05/26/19 04:50 Not Reportable 05/26/19 04:50 Consistent w auto 05/26/19 04:50 Not Reportable 05/26/19 04:50 Plt Clumps, EDTA Not Reportable 05/26/19 04:50 1+ 05/26/19 04:50 Not Reportable 05/26/19 04:50 Not Reportable 05/26/19 04:50 Plt Morphology Comment Not Reportable 05/26/19 04:50 RBC Morphology Not Reportable 05/26/19 04:50 Dimorphic RBCs Not Reportable 05/26/19 04:50 Few 05/26/19 04:50 1+ 05/26/19 04:50 Not Reportable 05/26/19 04:50 Not Reportable 05/26/19 04:50 Not Reportable 05/26/19 04:50 Few 05/26/19 04:50 Not Reportable 05/26/19 04:50 Not Reportable 05/26/19 04:50 Not Reportable 05/26/19 04:50 Not Reportable 05/26/19 04:50 Not Reportable 05/26/19 04:50 Few 05/26/19 04:50 Not Reportable 05/26/19 04:50 Not Reportable 05/26/19 04:50 Not Reportable 05/26/19 04:50 Not Reportable 05/26/19 04:50 Not Reportable 05/26/19 04:50 Not Reportable 05/26/19 04:50 Not Reportable 05/26/19 04:50 Acanthocytes (Spur) Not Reportable 05/26/19 04:50 Rouleaux Not Reportable 05/26/19 04:50 Not Reportable 05/26/19 04:50 Not Reportable 05/26/19 04:50 Not Reportable 05/26/19 04:50 Not Reportable 05/26/19 04:50 Hem Pathologist Commnt No 05/26/19 04:50 PT 18.1 Sec. (12.2-14.9) H 05/25/19 20:15 INR 1.54 (0.87-1.13) H 05/25/19 20:15 APTT 40.6 Sec. (24.2-36.6) H 05/25/19 20:15 609.27 ng/mlDDU (0-234) H 05/25/19 20:15 POC ABG pH 7.456 (7.35-7.45) H 05/25/19 23:07 POC ABG pCO2 36.7 (35-45) 05/25/19 23:07 POC ABG pO2 121 (80-105) H 05/25/19 23:07 POC ABG HCO3 25.9 (22-26 mml/L) 05/25/19 23:07 POC ABG Total CO2 27 (23-27mmol/L) 05/25/19 23:07 POC ABG O2 Sat 99 05/25/19 23:07 POC ABG Base Excess 2 ((-2) - (+3)mmol/L) 05/25/19 23:07 40 % 05/25/19 23:07 Sodium 143 mmol/L (137-145) 05/27/19 02:19 Potassium 3.6 mmol/L (3.6-5.0) 05/27/19 02:19 Chloride 98.9 mmol/L (98-107) 05/27/19 02:19 Carbon Dioxide 27 mmol/L (22-30) 05/27/19 02:19 21 mmol/L 05/27/19 02:19 BUN 21 mg/dL (7-17) H 05/27/19 02:19 1.1 mg/dL (0.7-1.2) 05/27/19 02:19 Estimated GFR 58 ml/min 05/27/19 02:19 19 % 05/27/19 02:19 Glucose 92 mg/dL (65-100) 05/27/19 02:19 POC Glucose 161 (70-105) H 05/26/19 21:44 Lactic Acid 1.10 mmol/L (0.7-2.0) 05/25/19 21:43 Calcium 7.9 mg/dL (8.4-10.2) L 05/27/19 02:19 Magnesium 2.10 mg/dL (1.7-2.3) 05/25/19 20:15 1.40 mg/dL (0.1-1.2) H 05/25/19 20:15 AST 7 units/L (5-40) 05/25/19 20:15 ALT < 5 units/L (7-56) L 05/25/19 20:15 59 units/L (35-129) 05/25/19 20:15 < 7 units/L (30-135) L 05/26/19 08:46 CK-MB (CK-2) < 1.0 ng/mL (0.0-4.0) 05/26/19 08:46 CK-MB (CK-2) Rel Index 0.0 (0-4) 05/26/19 08:46 < 0.010 ng/mL (0.00-0.029) 05/26/19 08:46 12.60 mg/dL (0.00-1.30) H 05/26/19 Unknown NT-Pro-B Natriuret Pep 5267 pg/mL (0-900) H 05/25/19 20:15 7.0 g/dL (6.3-8.2) 05/25/19 20:15 3.6 g/dL (3.9-5) L 05/25/19 20:15 1.1 % 05/25/19 20:15 TSH 1.200 mlU/mL (0.270-4.200) 05/25/19 20:15 Blood Type O POSITIVE 05/25/19 21:43 Antibody Screen Negative 05/25/19 21:43 Crossmatch See Detail 05/25/19 21:43 Active Medications - Current Medications Current Medications: Generic Name Dose Route Start Last Admin Trade Name Freq PRN Reason Stop Dose Admin Acetaminophen 650 mg 05/26/19 00:23 05/27/19 09:38 Tylenol PO 650 mg Q4H PRN Administration Pain MILD(1-3)/Fever >100.5/COLUNGA Albuterol/Ipratropium 1 ampul 05/26/19 02:00 05/27/19 13:26 Duoneb *Not For Prn Use* IH 1 ampul Q6HRT XOCHITL Administration Amlodipine Besylate 5 mg 05/26/19 11:00 05/27/19 09:37 Norvasc PO 5 mg DAILY XOCHITL Administration Dextrose 50 ml 05/26/19 00:23 D50w (25gm) Syringe IV PRN PRN Hypoglycemia Famotidine 20 mg 05/26/19 13:00 05/27/19 09:38 Pepcid PO 20 mg QDAY XOCHITL Administration Furosemide 20 mg 05/26/19 06:00 05/27/19 06:11 Lasix IV 20 mg 0600,1800 XOCHITL Administration Piperacillin Sod/Tazobactam Sod 3.375 gm in 50 mls @ 100 mls/hr 05/26/19 14:00 05/27/19 06:10 Zosyn/Ns 3.375gm/50ml IV 100 mls/hr Q8H XOCIHTL Administration Insulin Human Lispro 0 unit 05/26/19 06:00 05/27/19 07:48 Humalog SUB-Q Not Given Q6HR [facility] Protocol Metoprolol Tartrate 25 mg 05/26/19 11:00 05/27/19 09:38 Lopressor PO 25 mg BID XOCHITL Administration Ondansetron HCl 4 mg 05/26/19 00:23 05/27/19 12:04 Zofran IV 4 mg Q8H PRN Administration Nausea And Vomiting Sodium Chloride 10 ml 05/26/19 10:00 05/27/19 09:39 Sodium Chloride Flush Syringe 10 Ml IV 10 ml BID XOCHITL Administration Sodium Chloride 10 ml 05/26/19 00:23 05/26/19 06:15 Sodium Chloride Flush Syringe 10 Ml IV 10 ml PRN PRN Administration LINE FLUSH Tbo-Filgrastim 300 mcg 05/26/19 10:00 05/27/19 10:29 Granix SUB-Q 05/29/19 09:59 300 mcg DAILY XOCHITL Administration
[2019-05-27] MEDS ORDERED: CHLORASEPTIC MM PRN (16:30)
[2019-05-28] MEDS: DUONEB *Not for PRN Use IH SCH ×5 (03:06→19:44)
[2019-05-28] MEDS: TYLENOL PO PRN (03:24)
[2019-05-28] MEDS ORDERED: VANCOMYCIN/NS 1 GM/250 ML 1 GM/250 ML BAG IV ONE (04:38)
[2019-05-28] MEDS ORDERED: VANCOMYCIN PHARMACY TO DOSE IV SCH (05:00)
[2019-05-28] MEDS: LASIX IV SCH ×2 (05:25→17:57)
[2019-05-28] MEDS: ZOSYN/NS 3.375GM/50ML 3.375 GM/50 ML BAG IV SCH ×3 (05:25→23:10)
[2019-05-28] MEDS: NORCO 5/325 PO PRN ×2 (05:50→23:22)
[2019-05-28] MEDS: VANCOMYCIN/NS 1 GM/250 ML 1 GM/250 ML BAG IV SCH (09:22)
[2019-05-28] MEDS: HumuLIN R SUB-Q SCH ×3 (09:23→23:10)
[2019-05-28] MEDS: LOPRESSOR PO SCH ×2 (09:26→23:10)
[2019-05-28] MEDS: NORVASC PO SCH (09:27)
[2019-05-28] MEDS: PEPCID PO SCH (09:40)
--- NOTE | 2019-05-28 09:57 | Discharge Summary ---
Providers - Providers Date of Admission: 05/25/19 22:30 Date of discharge: 05/29/19 Attending physician: AURELIA BAIRES 05/25/19 20:29 Consult to Physician [CONS] Urgent Comment: Consulting Provider: MARVIN RUSSELL Physician Instructions: Reason For Exam: cp pericardia effusion 05/25/19 21:04 Consult to Physician [CONS] Urgent Comment: Consulting Provider: RICARDO GONSALES Physician Instructions: Reason For Exam: anemia mds 05/25/19 21:30 Consult to Physician [CONS] Urgent Comment: Consulting Provider: YEFRI CHATMAN Physician Instructions: Reason For Exam: chf anemia neutrooenia Primary care physician: [facility], Hospitalization Reason for admission: sob Condition: Serious Hospital course: The pt is a 78-year-old woman with a past medical history of myelodysplastic syndrome (followed by Dr. Gonsales), hypertension, diabetes, anemia who presented with c/o progressively worsening SOB, orthopnea and BLE swelling for 1 day prior to arrival. She described her chest pain as an intermittent substernal sharp pain which is aggravated by deep inspiration. She denied any palpitations, n/v, diaphoresis, dizziness or syncope. Pt was d/c from [facility] on 05/13/2019 after eval/treatment of anemia requiring PRBC and platelet transfusion, MIRELLA, sepsis, abscess of right index finger (wound cx with "light growth MRSA" per discharge summary). Following arrival to ED, pt found to be hypoxic, with minimal lower extremity edema and JVD. The patient was admitted with diagnosis of pancytopenia, accelerated hypertension, chest pain and acute heart failure and was initiated on tiara gtt overnight and remained on nitro gtt for approximately 24-36 hrs. The patient was seen by cardiology and hematology in consultation. Echocardiogram revealed EF 45-50%, mild LVH, mild to mod TR, mild pulm HTN RVSP 49mmHg, minimal pericardial effusion. Nitroglycerin drip was later discontinued and patient was transferred from CCU to telemetry floor. The patient was also noted to have elevated d-dimer in which a CTA of the chest was completed and found to be negative for PE. The patient's heart failure resolved. With regards to the pancytopenia/MDS patient received 1 unit of PRBCs and H&H stabilized. Patient is felt to have received maximal hospital benefit for discharge. Dedicated discharge time 35 minutes. Disposition: DC-01 TO HOME OR SELFCARE Time spent for discharge: 35 - Discharge Diagnoses (1) Accelerated hypertension Status: Acute (2) Acute heart failure with preserved ejection fraction Status: Acute (3) Dyspnea Status: Acute (4) History of MRSA infection Status: Chronic (5) Hypoxia Status: Acute (6) Myelodysplastic syndrome Status: Acute (7) Neutropenia Status: Acute (8) Diabetes Status: Chronic (9) Pancytopenia Status: Chronic Core Measure Documentation - Palliative Care Palliative Care/ Comfort Measures: Not Applicable - Core Measures Any of the following diagnoses?: heart failure - Heart Failure Discharge Requirements VERNON/ARB for LVSD if EF <40%: No Reason for no VERNON/ARB: Hypotension Beta so at discharge: Yes Exam - Constitutional Vitals: Temp Pulse Resp BP Pulse Ox 98.7 F 77 20 132/48 96 05/28/19 07:37 05/28/19 08:35 05/28/19 08:35 05/28/19 09:27 05/28/19 08:35 General appearance: Present: no acute distress, well-nourished - EENT Eyes: Present: PERRL ENT: hearing intact, clear oral mucosa - Neck Neck: Present: supple, normal ROM - Respiratory Respiratory effort: normal Respiratory: bilateral: CTA - Cardiovascular Heart Sounds: Present: S1 & S2. Absent: rub, click - Extremities Extremities: pulses symmetrical, No edema Peripheral Pulses: within normal limits - Abdominal General gastrointestinal: Present: soft, non-tender, non-distended, normal bowel sounds Female genitourinary: Present: normal - Integumentary Integumentary: Present: clear, warm, dry - Musculoskeletal Musculoskeletal: gait normal, strength equal bilaterally - Psychiatric Psychiatric: appropriate mood/affect, intact judgment & insight - Neurologic Neurologic: CNII-XII intact, moves all extremities Plan Activity: advance as tolerated Weight Bearing Status: Weight Bear as Tolerated Follow up with: JEFFRY WELCH MD [Primary Care Provider] - 3-5 Days Prescriptions: Loratadine [Claritin] 10 mg PO DAILY #30 tablet Metoprolol [Lopressor TAB] 25 mg PO BID #60 tablet Metformin HCl [metFORMIN] 1,000 mg PO BID #60 tablet Polyethylene Glycol 3350 [Miralax 3350] 17 gm PO QDAY #30 powd.pack HYDROcodone/APAP 5-325 [[place] 5-325 mg TAB] 1 each PO Q6HR PRN #10 tablet PRN Reason: Pain Amlodipine Besylate [Norvasc] 5 mg PO DAILY #30 tablet
[2019-05-28 10:32] LABS: Hematocrit 20.1 % (30.3-42.9); Hemoglobin 6.7 gm/dl (10.1-14.3); Mean Corpuscular HGB Conc 33 % (30-34); Mean Corpuscular Volume 93 fl (79-97); Red Blood Count 2.17 M/mm3 (3.65-5.03)
[2019-05-28 10:36] LABS: Red Cell Distribution Width 20.6 % (13.2-15.2)
[2019-05-28 10:41] LABS: Platelet Count 14 K/mm3 (140-440)
[2019-05-28] MEDS ORDERED: NACL 0.9% 500 ML 500 ML IV ONE ×2 (10:51→12:00)
[2019-05-28] MEDS: GRANIX SUB-Q SCH (11:39)
[2019-05-28] MEDS: SODIUM CHLORIDE FLUSH SYRINGE 10 ML IV SCH ×2 (11:43→23:17)
[2019-05-28 12:58] LABS: Band Neutrophils # (Manual) 0.1 K/mm3; Basophils % (Manual) 0 % (0.0-1.8); Eosinophils % (Manual) 0 % (0.0-4.3); Hypochromasia 1+; Tear Drop Cells Few; Total Cells Counted 100
[2019-05-28 12:59] LABS: Giant Platelets Few; Platelet Estimate Consistent w Auto
--- NOTE | 2019-05-28 13:49 | Progress Note ---
Assessment and Plan The patient's cardiac status is stable. Continue current management. She would like to remain in the hospital for additional observation overnight. The patient has been seen in conjunction with Dr. Faria, who agrees with assessment and plan. 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 No cardiac complaints. Reports edema and breathing are improved. Telemetry reviewed - SR in 80s. Objective Last Vital Signs Temp 98.7 F 05/28/19 07:37 Pulse 81 05/28/19 12:42 Resp 20 05/28/19 12:42 BP 132/48 05/28/19 09:27 Pulse Ox 89 05/28/19 10:00 - Physical Examination General: No Apparent Distress HEENT: Positive: PERRL, Normocephaly, Mucus Membranes Moist Neck: Positive: neck supple, trachea midline Cardiac: Positive: Reg Rate and Rhythm Lungs: Positive: Normal Exam Neuro: Positive: Grossly Intact Abdomen: Positive: Unremarkable. Negative: Tender /Rectal: Other (deferred) Skin: Negative: Rash Musculoskeletal: No Pain Extremities: Present: normal. Absent: edema - Labs and Meds CBC 05/28/19 Range/Units 09:32 WBC 4.0 L (4.5-11.0) K/mm3 RBC 2.17 L (3.65-5.03) M/mm3 Hgb 6.7 L (10.1-14.3) gm/dl Hct 20.1 L (30.3-42.9) % Plt Count 14 L* (140-440) K/mm3 - Imaging and Cardiology EKG: report reviewed, image reviewed Echo: pending, report reviewed (07/2016 at [place] showed EF 55-60%, mild LVH. ) - Telemetry EKG Rhythm: Sinus Rhythm - EKG Sinus rhythms and dysrhythmias: sinus rhythm
--- NOTE | 2019-05-28 14:19 | Progress Note ---
Assessment and Plan Acute hypoxemic respiratory failure. Symptomatic anemia. Acute congestive heart failure exacerbation. Pancytopenia. History of myelodysplastic syndrome. History of diabetes. Elevated D-dimer. Elevated BNP. Hyperbilirubinemia - s/p PRBC transfusions - WBC rebounded - continue gentle diuresis - supplemental oxygen as needed to keep O2 sat's > 90% - prn bronchodilators with pulmonary hygiene per RT - optimize cardiac function per cardiology team - continue oral antiHTNsive therapy - continue glycemic control with SSI for target BG < 180 mg/dl - GI prophylaxis - VTE prophylaxis with SCD's - continue other care per attending / other consultants ... re-evaluate in am & prn Subjective Date of service: 05/28/19 Principal diagnosis: Ac hypoxemic resp failure; Anemia; Acute CHF exacerbation; DM II Interval history: Patient is seen today for: Ac hypoxemic resp failure; Symptomatic anemia; Acute congestive heart failure exacerbation; Pancytopenia; History of myelodysplastic syndrome; History of diabetes. Seen and examined at bedside; 24hour events reviewed; nursing and respiratory care staff consulted; no adverse overnight events reported to me; resting peacefully in bed; denies acute chest pains or palpitations; No N/V/F/C Objective Vital Signs - 12hr 05/28/19 05/28/19 05/28/19 03:08 03:10 03:46 Temperature 99.0 F Pulse Rate 72 72 Pulse Rate [ 74 Bilateral Throughout] Respiratory 18 20 Rate Respiratory 18 Rate [Bilateral Throughout] Blood Pressure 134/42 O2 Sat by Pulse 97 96 Oximetry 05/28/19 05/28/19 05/28/19 04:47 07:37 08:35 Temperature 98.7 F Pulse Rate 72 77 Pulse Rate [ 77 Bilateral Throughout] Respiratory 18 Rate Respiratory 20 Rate [Bilateral Throughout] Blood Pressure 132/48 O2 Sat by Pulse 89 96 Oximetry 05/28/19 05/28/19 05/28/19 09:26 09:27 10:00 Temperature Pulse Rate Pulse Rate [ Bilateral Throughout] Respiratory 18 Rate Respiratory Rate [Bilateral Throughout] Blood Pressure 132/48 132/48 O2 Sat by Pulse 89 Oximetry 05/28/19 12:42 Temperature Pulse Rate Pulse Rate [ 81 Bilateral Throughout] Respiratory Rate Respiratory 20 Rate [Bilateral Throughout] Blood Pressure O2 Sat by Pulse Oximetry Constitutional: no acute distress, other (elderly looking AAF, normocephalic and atraumatic) Eyes: non-icteric ENT: oropharynx moist Neck: supple, no lymphadenopathy, no JVD Effort: mildly labored Ascultation: Bilateral: rhonchi Percussion: Bilateral: not dull Cardiovascular: regular rate and rhythm Gastrointestinal: normoactive bowel sounds, soft, non-tender, non-distended Integumentary: normal Extremities: no cyanosis, no edema, pulses normal, no ischemia or petechiae Neurologic: normal mental status, non-focal exam, pupils equal and round, CN II- XII normal Psychiatric: mood appropriate, affect normal CBC and BMP: 05/29/19 08:49 05/27/19 02:19 ABG, PT/INR, D-dimer: ABG POC ABG pH 7.456 (7.35-7.45) H 05/25/19 23:07 POC ABG pCO2 36.7 (35-45) 05/25/19 23:07 POC ABG pO2 121 (80-105) H 05/25/19 23:07 POC ABG HCO3 25.9 (22-26 mml/L) 05/25/19 23:07 POC ABG Total CO2 27 (23-27mmol/L) 05/25/19 23:07 POC ABG O2 Sat 99 05/25/19 23:07 PT/INR, D-dimer PT 18.1 Sec. (12.2-14.9) H 05/25/19 20:15 INR 1.54 (0.87-1.13) H 05/25/19 20:15 609.27 ng/mlDDU (0-234) H 05/25/19 20:15 Abnormal lab findings: Abnormal Labs 05/25/19 05/25/19 05/25/19 20:15 20:15 20:15 WBC 1.1 L* RBC 1.93 L Hgb 6.0 L Hct 18.2 L* RDW 22.6 H Plt Count 48 L Seg Neuts % (Manual) Monocytes % (Manual) 19.0 H Eosinophils % (Manual) 7.0 H Basophils % (Manual) 3.0 H Nucleated RBC % Seg Neutrophils # Man 0.5 L Lymphocytes # (Manual) 0.3 L PT 18.1 H INR 1.54 H APTT 40.6 H D-Dimer 609.27 H POC ABG pH POC ABG pO2 BUN 19 H POC Glucose Calcium 8.3 L Total Bilirubin 1.40 H ALT < 5 L Total Creatine Kinase CK-MB (CK-2) Rel Index C-Reactive Protein NT-Pro-B Natriuret Pep Albumin 3.6 L Crossmatch 05/25/19 05/25/19 05/25/19 20:15 21:43 23:07 WBC RBC Hgb Hct RDW Plt Count Seg Neuts % (Manual) Monocytes % (Manual) Eosinophils % (Manual) Basophils % (Manual) Nucleated RBC % Seg Neutrophils # Man Lymphocytes # (Manual) PT INR APTT D-Dimer POC ABG pH 7.456 H POC ABG pO2 121 H BUN POC Glucose Calcium Total Bilirubin ALT Total Creatine Kinase 17 L CK-MB (CK-2) Rel Index C-Reactive Protein NT-Pro-B Natriuret Pep 5267 H Albumin Crossmatch See Detail 05/26/19 05/26/19 05/26/19 04:50 04:50 06:20 WBC 1.1 L* RBC 2.16 L Hgb 6.6 L Hct 19.7 L* RDW 18.4 H Plt Count 40 L Seg Neuts % (Manual) Monocytes % (Manual) 10.0 H Eosinophils % (Manual) Basophils % (Manual) Nucleated RBC % 3.0 H Seg Neutrophils # Man 0.6 L Lymphocytes # (Manual) 0.3 L PT INR APTT D-Dimer POC ABG pH POC ABG pO2 BUN POC Glucose 122 H Calcium Total Bilirubin ALT Total Creatine Kinase 8 L CK-MB (CK-2) Rel Index 12.5 H C-Reactive Protein NT-Pro-B Natriuret Pep Albumin Crossmatch 05/26/19 05/26/19 05/26/19 08:46 21:44 Unknown WBC RBC Hgb Hct RDW Plt Count Seg Neuts % (Manual) Monocytes % (Manual) Eosinophils % (Manual) Basophils % (Manual) Nucleated RBC % Seg Neutrophils # Man Lymphocytes # (Manual) PT INR APTT D-Dimer POC ABG pH POC ABG pO2 BUN POC Glucose 161 H Calcium Total Bilirubin ALT Total Creatine Kinase < 7 L CK-MB (CK-2) Rel Index C-Reactive Protein 12.60 H NT-Pro-B Natriuret Pep Albumin Crossmatch 05/27/19 05/27/19 05/28/19 02:19 21:27 08:50 WBC RBC Hgb Hct RDW Plt Count Seg Neuts % (Manual) Monocytes % (Manual) Eosinophils % (Manual) Basophils % (Manual) Nucleated RBC % Seg Neutrophils # Man Lymphocytes # (Manual) PT INR APTT D-Dimer POC ABG pH POC ABG pO2 BUN 21 H POC Glucose 126 H 116 H Calcium 7.9 L Total Bilirubin ALT Total Creatine Kinase CK-MB (CK-2) Rel Index C-Reactive Protein NT-Pro-B Natriuret Pep Albumin Crossmatch 05/28/19 05/28/19 09:32 12:26 WBC 4.0 L RBC 2.17 L Hgb 6.7 L Hct 20.1 L RDW 20.6 H Plt Count 14 L* Seg Neuts % (Manual) 74.0 H Monocytes % (Manual) Eosinophils % (Manual) Basophils % (Manual) Nucleated RBC % Seg Neutrophils # Man Lymphocytes # (Manual) 0.8 L PT INR APTT D-Dimer POC ABG pH POC ABG pO2 BUN POC Glucose 120 H Calcium Total Bilirubin ALT Total Creatine Kinase CK-MB (CK-2) Rel Index C-Reactive Protein NT-Pro-B Natriuret Pep Albumin Crossmatch Chest x-ray: image reviewed Allied health notes reviewed: nursing
--- NOTE | 2019-05-28 18:02 | Hem/Onc Progress Note ---
Assessment and Plan 1. History of myelodysplastic syndrome, anemia, leukopenia, thrombocytopenia. The patient has received first dose of decitabine in the end of March and received G-CSF after that. 2. Recent hospitalization at [facility] and received blood transfusion. 3. Is anemic. Transfusion support. 4. BNP high, shortness of breath, chest pain, seen by Cardiology team. 5. For the low platelet, in case of bleeding, transfusion support. 6. Hypertension history. 7. History of diabetes. 8. G-CSF support. 9. BiPAP for respiratory issues. 10. Antibiotic support. 11. For the myelodysplastic syndrome, she would need at least 4 cycles of chemotherapy to evaluate if there is a response. She would need transfusion support in the interim. transfusion support d/w dr Garcia - Patient Problems (1) Neutropenia Current Visit: Yes Status: Acute Subjective Date of service: 05/28/19 Principal diagnosis: MDS Interval history: feeling better Objective - Exam Narrative Exam: Pain - none General appearance - breathing better Performance status limited self care Eyes - no icterus, pallor + ENT - no bleeding LNs cervical not palpable Neck - no LN Respiratory Normal Breath sounds - CTA CVS S1 S2 + Extremities toe - bandage General GI Soft Rectal deferred female - deferred Skin warm Musculoskeletal moving extremitites Neurologically awake - oriented - Constitutional Vitals: Last Vital Signs Temp 98.7 F 05/28/19 15:33 Pulse 78 05/28/19 15:33 Resp 18 05/28/19 15:33 BP 135/46 05/28/19 15:33 Pulse Ox 98 05/28/19 15:33 - Labs Lab Results: Laboratory Results - last 24 hr 05/25/19 05/27/19 05/28/19 21:43 21:27 08:50 WBC RBC Hgb Hct MCV MCH MCHC RDW Plt Count Add Manual Diff Total Counted Seg Neuts % (Manual) Band Neutrophils % Lymphocytes % (Manual) Reactive Lymphs % (Man) Monocytes % (Manual) Eosinophils % (Manual) Basophils % (Manual) Metamyelocytes % Myelocytes % Promyelocytes % Blast Cells % Nucleated RBC % Seg Neutrophils # Man Band Neutrophils # Lymphocytes # (Manual) Abs React Lymphs (Man) Monocytes # (Manual) Eosinophils # (Manual) Basophils # (Manual) Metamyelocytes # Myelocytes # Promyelocytes # Blast Cells # WBC Morphology Hypersegmented Neuts Hyposegmented Neuts Hypogranular Neuts Smudge Cells Toxic Granulation Toxic Vacuolation Dohle Bodies Pelger-Huet Anomaly Pao Rods Platelet Estimate Clumped Platelets Plt Clumps, EDTA Large Platelets Giant Platelets Platelet Satelliting Plt Morphology Comment RBC Morphology Dimorphic RBCs Polychromasia Hypochromasia Poikilocytosis Anisocytosis Microcytosis Macrocytosis Spherocytes Pappenheimer Bodies Sickle Cells Target Cells Tear Drop Cells Ovalocytes Helmet Cells [place] Bodies Luna Rings [place] Cells Bite Cells Crenated Cell Elliptocytes Acanthocytes (Spur) Rouleaux Hemoglobin C Crystals Schistocytes Malaria parasites Chung Bodies Hem Pathologist Commnt POC Glucose 126 H 116 H Blood Type O POSITIVE Antibody Screen Negative Crossmatch See Detail 05/28/19 05/28/19 05/28/19 09:32 12:26 16:28 WBC 4.0 L RBC 2.17 L Hgb 6.7 L Hct 20.1 L MCV 93 MCH 31 MCHC 33 RDW 20.6 H Plt Count 14 L* Add Manual Diff Complete Total Counted 100 Seg Neuts % (Manual) 74.0 H Band Neutrophils % 3.0 Lymphocytes % (Manual) 19.0 Reactive Lymphs % (Man) 0 Monocytes % (Manual) 3.0 Eosinophils % (Manual) 0 Basophils % (Manual) 0 Metamyelocytes % 1.0 Myelocytes % 0 Promyelocytes % 0 Blast Cells % 0 Nucleated RBC % Not Reportable Seg Neutrophils # Man 3.0 Band Neutrophils # 0.1 Lymphocytes # (Manual) 0.8 L Abs React Lymphs (Man) 0.0 Monocytes # (Manual) 0.1 Eosinophils # (Manual) 0.0 Basophils # (Manual) 0.0 Metamyelocytes # 0.0 Myelocytes # 0.0 Promyelocytes # 0.0 Blast Cells # 0.0 WBC Morphology Not Reportable Hypersegmented Neuts Not Reportable Hyposegmented Neuts Not Reportable Hypogranular Neuts Not Reportable Smudge Cells Not Reportable Toxic Granulation Not Reportable Toxic Vacuolation Not Reportable Dohle Bodies Not Reportable Pelger-Huet Anomaly Not Reportable Pao Rods Not Reportable Platelet Estimate Consistent w auto Clumped Platelets Not Reportable Plt Clumps, EDTA Not Reportable Large Platelets Not Reportable Giant Platelets Few Platelet Satelliting Not Reportable Plt Morphology Comment Not Reportable RBC Morphology Not Reportable Dimorphic RBCs Not Reportable Polychromasia Not Reportable Hypochromasia 1+ Poikilocytosis Not Reportable Anisocytosis Not Reportable Microcytosis Not Reportable Macrocytosis Not Reportable Spherocytes Not Reportable Pappenheimer Bodies Not Reportable Sickle Cells Not Reportable Target Cells Not Reportable Tear Drop Cells Few Ovalocytes Not Reportable Helmet Cells Not Reportable [place] Bodies Not Reportable Luna Rings Not Reportable Manuel Cells Not Reportable Bite Cells Not Reportable Crenated Cell Not Reportable Elliptocytes Few Acanthocytes (Spur) Not Reportable Rouleaux Not Reportable Hemoglobin C Crystals Not Reportable Schistocytes Not Reportable Malaria parasites Not Reportable Chung Bodies Not Reportable Hem Pathologist Commnt No POC Glucose 120 H 94 Blood Type Antibody Screen Crossmatch Medications & Allergies - Medications Allergies/Adverse Reactions: Allergies No Known Allergies Allergy (Verified 05/25/19 20:14) Home Medications: Home Medications Medication Instructions Recorded Confirmed Last Taken Type Acetaminophen [Acetaminophen TAB] 500 mg PO Q6HR 05/26/19 05/26/19 Unknown History Venlafaxine [Effexor] 75 mg PO BID 05/26/19 05/26/19 Unknown History Amlodipine Besylate [Norvasc] 5 mg PO DAILY #30 tablet 05/28/19 Unknown Rx HYDROcodone/APAP 5-325 [[place] 1 each PO Q6HR PRN #10 tablet 05/28/19 Unknown Rx 5-325 mg TAB] Loratadine [Claritin] 10 mg PO DAILY #30 tablet 05/28/19 Unknown Rx Metformin HCl [metFORMIN] 1,000 mg PO BID #60 tablet 05/28/19 Unknown Rx Metoprolol [Lopressor TAB] 25 mg PO BID #60 tablet 05/28/19 Unknown Rx Polyethylene Glycol 3350 [Miralax 17 gm PO QDAY #30 powd.pack 05/28/19 Unknown Rx 3350] Active Medications: Generic Name Dose Route Start Last Admin Trade Name Freq PRN Reason Stop Dose Admin Acetaminophen 650 mg 05/26/19 00:23 05/28/19 03:24 Tylenol PO 650 mg Q4H PRN Administration Pain MILD(1-3)/Fever >100.5/COLUNGA Acetaminophen/Hydrocodone Bitart 1 each 05/28/19 05:30 05/28/19 05:50 [place] 5/325 PO 1 each Q6H PRN Administration Pain, Moderate (4-6) Albuterol/Ipratropium 1 ampul 05/26/19 02:00 05/28/19 13:01 Duoneb *Not For Prn Use* IH Not Given Q6HRT [facility] Amlodipine Besylate 5 mg 05/26/19 11:00 05/28/19 09:27 Norvasc PO Not Given DAILY [facility] Dextrose 50 ml 05/26/19 00:23 D50w (25gm) Syringe IV PRN PRN Hypoglycemia Famotidine 20 mg 05/26/19 13:00 05/28/19 09:40 Pepcid PO 20 mg QDAY [facility] Administration Furosemide 20 mg 05/26/19 06:00 05/28/19 17:57 Lasix IV 20 mg 0600,1800 [facility] Administration Piperacillin Sod/Tazobactam Sod 3.375 gm in 50 mls @ 100 mls/hr 05/26/19 14:00 05/28/19 17:40 Zosyn/Ns 3.375gm/50ml IV 100 mls/hr Q8H [facility] Administration Vancomycin HCl 1 gm in 250 mls @ 250 mls/hr 05/28/19 08:00 05/28/19 09:22 Vancomycin/Ns 1 Gm/250 Ml IV 250 mls/hr Q18H [facility] Administration Insulin Human Regular 0 units 05/28/19 07:30 05/28/19 17:18 Humulin R SUB-Q Not Given ACHS [facility] Protocol Metoprolol Tartrate 25 mg 05/26/19 11:00 05/28/19 09:26 Lopressor PO Not Given BID [facility] Ondansetron HCl 4 mg 05/26/19 00:23 05/27/19 12:04 Zofran IV 4 mg Q8H PRN Administration Nausea And Vomiting Phenol 1 spray 05/27/19 16:30 05/27/19 18:45 Chloraseptic MM 1 spray PRN PRN Administration Sore Throat Sodium Chloride 10 ml 05/26/19 10:00 05/28/19 11:43 Sodium Chloride Flush Syringe 10 Ml IV 10 ml BID [facility] Administration Sodium Chloride 10 ml 05/26/19 00:23 05/26/19 06:15 Sodium Chloride Flush Syringe 10 Ml IV 10 ml PRN PRN Administration LINE FLUSH Tbo-Filgrastim 300 mcg 05/26/19 10:00 05/28/19 11:39 Granix SUB-Q 05/29/19 09:59 300 mcg DAILY [facility] Administration
[2019-05-28] MEDS ORDERED: NACL 0.9% 250ML 250 ML IV ONE (21:00)
[2019-05-29] MEDS: DUONEB *Not for PRN Use IH SCH ×4 (01:18→20:33)
[2019-05-29] MEDS: VANCOMYCIN/NS 1 GM/250 ML 1 GM/250 ML BAG IV SCH ×2 (02:31→23:25)
[2019-05-29] MEDS: LASIX IV SCH ×2 (05:45→17:39)
[2019-05-29] MEDS: ZOSYN/NS 3.375GM/50ML 3.375 GM/50 ML BAG IV SCH ×2 (05:46→15:41)
--- NOTE | 2019-05-29 08:16 | Progress Note ---
Assessment and Plan Assessment and plan: Acute hypoxic resp failure. Resolved. Etiology sec to HF and pulm htn Elevated DDimer - chest CTA negative for PE. Acute HFpEF. Continue IV lasix BID. Echocardiogram revealed mild concentric left ventricular hypertrophy with EF of 45-50%. Left ventricular systolic function was mildly decreased. Patient with mild pulmonary hypertension. Cardiology following. Accelerated HTN. Optimize BPs - with norvasc and lopressor. MDS. Pt with Pancytopenia/anemia--PRBCs and platelets ordered Heme/Onc following DM II. Accucheks ac and hs. SSRI Disposition. 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 (5) Hypoxia Current Visit: Yes Status: Acute (6) Myelodysplastic syndrome Current Visit: Yes Status: Acute (7) Neutropenia Current Visit: Yes Status: Acute (8) Diabetes Current Visit: Yes Status: Chronic (9) Pancytopenia Current Visit: Yes Status: Chronic History Interval history: No new issues overnight Hospitalist Physical - Constitutional Vitals: Temp Pulse Resp BP Pulse Ox 98.6 F 61 16 145/48 100 05/29/19 07:33 05/29/19 07:33 05/29/19 07:33 05/29/19 07:33 05/29/19 07:33 General appearance: Present: no acute distress, well-nourished - EENT Eyes: Present: PERRL, EOM intact ENT: hearing intact, clear oral mucosa, dentition normal - Neck Neck: Present: supple, normal ROM - Respiratory Respiratory effort: normal Respiratory: bilateral: CTA - Cardiovascular Rhythm: regular Heart Sounds: Present: S1 & S2. Absent: gallop, rub - Extremities Extremities: no ischemia, No edema, Full ROM - Abdominal General gastrointestinal: soft, non-tender, non-distended, normal bowel sounds - Integumentary Integumentary: Present: clear, warm, dry - Neurologic Neurologic: CNII-XII intact, moves all extremities Results - Labs CBC & Chem 7: 05/28/19 09:32 05/27/19 02:19 Labs: Laboratory Last Values WBC 4.0 K/mm3 (4.5-11.0) L 05/28/19 09:32 RBC 2.17 M/mm3 (3.65-5.03) L 05/28/19 09:32 Hgb 6.7 gm/dl (10.1-14.3) L 05/28/19 09:32 Hct 20.1 % (30.3-42.9) L 05/28/19 09:32 MCV 93 fl (79-97) 05/28/19 09:32 MCH 31 pg (28-32) 05/28/19 09:32 MCHC 33 % (30-34) 05/28/19 09:32 RDW 20.6 % (13.2-15.2) H 05/28/19 09:32 Plt Count 14 K/mm3 (140-440) L* 05/28/19 09:32 [place] % (Auto) Religion Instructor 05/26/19 04:50 Baso % (Auto) Religion Instructor 05/25/19 20:15 Add Manual Diff Complete 05/28/19 09:32 Total Counted 100 05/28/19 09:32 Seg Neuts % (Manual) 74.0 % (40.0-70.0) H 05/28/19 09:32 3.0 % 05/28/19 09:32 19.0 % (13.4-35.0) 05/28/19 09:32 Reactive Lymphs % (Man) 0 % 05/28/19 09:32 3.0 % (0.0-7.3) 05/28/19 09:32 0 % (0.0-4.3) 05/28/19 09:32 0 % (0.0-1.8) 05/28/19 09:32 1.0 % 05/28/19 09:32 0 % 05/28/19 09:32 0 % 05/28/19 09:32 0 % 05/28/19 09:32 Nucleated RBC % Not Reportable 05/28/19 09:32 Seg Neutrophils # Man 3.0 K/mm3 (1.8-7.7) 05/28/19 09:32 Band Neutrophils # 0.1 K/mm3 05/28/19 09:32 0.8 K/mm3 (1.2-5.4) L 05/28/19 09:32 Abs React Lymphs (Man) 0.0 K/mm3 05/28/19 09:32 0.1 K/mm3 (0.0-0.8) 05/28/19 09:32 0.0 K/mm3 (0.0-0.4) 05/28/19 09:32 0.0 K/mm3 (0.0-0.1) 05/28/19 09:32 0.0 K/mm3 05/28/19 09:32 0.0 K/mm3 05/28/19 09:32 0.0 K/mm3 05/28/19 09:32 Blast Cells # 0.0 K/mm3 05/28/19 09:32 WBC Morphology Not Reportable 05/28/19 09:32 Hypersegmented Neuts Not Reportable 05/28/19 09:32 Hyposegmented Neuts Not Reportable 05/28/19 09:32 Hypogranular Neuts Not Reportable 05/28/19 09:32 Not Reportable 05/28/19 09:32 Not Reportable 05/28/19 09:32 Not Reportable 05/28/19 09:32 Not Reportable 05/28/19 09:32 Not Reportable 05/28/19 09:32 Not Reportable 05/28/19 09:32 Consistent w auto 05/28/19 09:32 Not Reportable 05/28/19 09:32 Plt Clumps, EDTA Not Reportable 05/28/19 09:32 Not Reportable 05/28/19 09:32 Few 05/28/19 09:32 Not Reportable 05/28/19 09:32 Plt Morphology Comment Not Reportable 05/28/19 09:32 RBC Morphology Not Reportable 05/28/19 09:32 Dimorphic RBCs Not Reportable 05/28/19 09:32 Not Reportable 05/28/19 09:32 1+ 05/28/19 09:32 Not Reportable 05/28/19 09:32 Not Reportable 05/28/19 09:32 Not Reportable 05/28/19 09:32 Not Reportable 05/28/19 09:32 Not Reportable 05/28/19 09:32 Not Reportable 05/28/19 09:32 Not Reportable 05/28/19 09:32 Not Reportable 05/28/19 09:32 Few 05/28/19 09:32 Not Reportable 05/28/19 09:32 Not Reportable 05/28/19 09:32 Not Reportable 05/28/19 09:32 Not Reportable 05/28/19 09:32 Not Reportable 05/28/19 09:32 Not Reportable 05/28/19 09:32 Not Reportable 05/28/19 09:32 Few 05/28/19 09:32 Acanthocytes (Spur) Not Reportable 05/28/19 09:32 Rouleaux Not Reportable 05/28/19 09:32 Not Reportable 05/28/19 09:32 Not Reportable 05/28/19 09:32 Not Reportable 05/28/19 09:32 Not Reportable 05/28/19 09:32 Hem Pathologist Commnt No 05/28/19 09:32 PT 18.1 Sec. (12.2-14.9) H 05/25/19 20:15 INR 1.54 (0.87-1.13) H 05/25/19 20:15 APTT 40.6 Sec. (24.2-36.6) H 05/25/19 20:15 609.27 ng/mlDDU (0-234) H 05/25/19 20:15 POC ABG pH 7.456 (7.35-7.45) H 05/25/19 23:07 POC ABG pCO2 36.7 (35-45) 05/25/19 23:07 POC ABG pO2 121 (80-105) H 05/25/19 23:07 POC ABG HCO3 25.9 (22-26 mml/L) 05/25/19 23:07 POC ABG Total CO2 27 (23-27mmol/L) 05/25/19 23:07 POC ABG O2 Sat 99 05/25/19 23:07 POC ABG Base Excess 2 ((-2) - (+3)mmol/L) 05/25/19 23:07 40 % 05/25/19 23:07 Sodium 143 mmol/L (137-145) 05/27/19 02:19 Potassium 3.6 mmol/L (3.6-5.0) 05/27/19 02:19 Chloride 98.9 mmol/L (98-107) 05/27/19 02:19 Carbon Dioxide 27 mmol/L (22-30) 05/27/19 02:19 21 mmol/L 05/27/19 02:19 BUN 21 mg/dL (7-17) H 05/27/19 02:19 1.1 mg/dL (0.7-1.2) 05/27/19 02:19 Estimated GFR 58 ml/min 05/27/19 02:19 19 % 05/27/19 02:19 Glucose 92 mg/dL (65-100) 05/27/19 02:19 POC Glucose 131 (70-105) H 05/28/19 22:10 Lactic Acid 1.10 mmol/L (0.7-2.0) 05/25/19 21:43 Calcium 7.9 mg/dL (8.4-10.2) L 05/27/19 02:19 Magnesium 2.10 mg/dL (1.7-2.3) 05/25/19 20:15 1.40 mg/dL (0.1-1.2) H 05/25/19 20:15 AST 7 units/L (5-40) 05/25/19 20:15 ALT < 5 units/L (7-56) L 05/25/19 20:15 59 units/L (35-129) 05/25/19 20:15 < 7 units/L (30-135) L 05/26/19 08:46 CK-MB (CK-2) < 1.0 ng/mL (0.0-4.0) 05/26/19 08:46 CK-MB (CK-2) Rel Index 0.0 (0-4) 05/26/19 08:46 < 0.010 ng/mL (0.00-0.029) 05/26/19 08:46 12.60 mg/dL (0.00-1.30) H 05/26/19 Unknown NT-Pro-B Natriuret Pep 5267 pg/mL (0-900) H 05/25/19 20:15 7.0 g/dL (6.3-8.2) 05/25/19 20:15 3.6 g/dL (3.9-5) L 05/25/19 20:15 1.1 % 05/25/19 20:15 TSH 1.200 mlU/mL (0.270-4.200) 05/25/19 20:15 Blood Type O POSITIVE 05/25/19 21:43 Antibody Screen Negative 05/25/19 21:43 Crossmatch See Detail 05/25/19 21:43 Active Medications - Current Medications Current Medications: Generic Name Dose Route Start Last Admin Trade Name Freq PRN Reason Stop Dose Admin Acetaminophen 650 mg 05/26/19 00:23 05/28/19 03:24 Tylenol PO 650 mg Q4H PRN Administration Pain MILD(1-3)/Fever >100.5/COLUNGA Acetaminophen/Hydrocodone Bitart 1 each 05/28/19 05:30 05/28/19 23:22 [place] 5/325 PO 1 each Q6H PRN Administration Pain, Moderate (4-6) Albuterol/Ipratropium 1 ampul 05/26/19 02:00 05/29/19 07:32 Duoneb *Not For Prn Use* IH 1 ampul Q6HRT [facility] Administration Amlodipine Besylate 5 mg 05/26/19 11:00 05/28/19 09:27 Norvasc PO Not Given DAILY [facility] Dextrose 50 ml 05/26/19 00:23 D50w (25gm) Syringe IV PRN PRN Hypoglycemia Famotidine 20 mg 05/26/19 13:00 05/28/19 09:40 Pepcid PO 20 mg QDAY [facility] Administration Furosemide 20 mg 05/26/19 06:00 05/29/19 05:45 Lasix IV 20 mg 0600,1800 [facility] Administration Piperacillin Sod/Tazobactam Sod 3.375 gm in 50 mls @ 100 mls/hr 05/26/19 14:00 05/29/19 05:46 Zosyn/Ns 3.375gm/50ml IV 05/30/19 13:59 100 mls/hr Q8H [facility] Administration Vancomycin HCl 1 gm in 250 mls @ 250 mls/hr 05/28/19 08:00 05/29/19 02:31 Vancomycin/Ns 1 Gm/250 Ml IV 05/29/19 20:59 250 mls/hr Q18H [facility] Administration Insulin Human Regular 0 units 05/28/19 07:30 05/28/19 23:10 Humulin R SUB-Q Not Given ACHS [facility] Protocol Metoprolol Tartrate 25 mg 05/26/19 11:00 05/28/19 23:10 Lopressor PO 25 mg BID [facility] Administration Ondansetron HCl 4 mg 05/26/19 00:23 05/27/19 12:04 Zofran IV 4 mg Q8H PRN Administration Nausea And Vomiting Phenol 1 spray 05/27/19 16:30 05/27/19 18:45 Chloraseptic MM 1 spray PRN PRN Administration Sore Throat Sodium Chloride 10 ml 05/26/19 10:00 05/28/19 23:17 Sodium Chloride Flush Syringe 10 Ml IV 10 ml BID [facility] Administration Sodium Chloride 10 ml 05/26/19 00:23 05/26/19 06:15 Sodium Chloride Flush Syringe 10 Ml IV 10 ml PRN PRN Administration LINE FLUSH Tbo-Filgrastim 300 mcg 05/26/19 10:00 05/28/19 11:39 Granix SUB-Q 05/29/19 09:59 300 mcg DAILY [facility] Administration
[2019-05-29 09:01] LABS: Hematocrit 22.1 % (30.3-42.9); Hemoglobin 7.5 gm/dl (10.1-14.3); Mean Corpuscular HGB Conc 34 % (30-34); Mean Corpuscular Volume 92 fl (79-97); Red Cell Distribution Width 18.4 % (13.2-15.2)
[2019-05-29 09:05] LABS: Platelet Count 11 K/mm3 (140-440)
[2019-05-29 10:11] LABS: Basophils % (Manual) 0 % (0.0-1.8); Total Cells Counted 100
[2019-05-29 10:12] LABS: Band Neutrophils # (Manual) 0.4 K/mm3; Hypochromasia 1+; Monocytes % (Manual) 3 % (0.0-7.3)
[2019-05-29 10:13] LABS: Anisocytosis 1+
[2019-05-29] MEDS: HumuLIN R SUB-Q SCH ×4 (11:08→21:59)
[2019-05-29] MEDS: PEPCID PO SCH (11:14)
[2019-05-29] MEDS: SODIUM CHLORIDE FLUSH SYRINGE 10 ML IV SCH ×2 (11:14→22:35)
[2019-05-29] MEDS: LOPRESSOR PO SCH ×2 (11:14→21:30)
[2019-05-29] MEDS: NORVASC PO SCH (11:14)
--- NOTE | 2019-05-29 12:10 | Progress Note ---
Assessment and Plan Acute hypoxemic respiratory failure. Symptomatic anemia. Acute congestive heart failure exacerbation. Pancytopenia. History of myelodysplastic syndrome. History of diabetes. Elevated D-dimer. Elevated BNP. Hyperbilirubinemia - s/p PRBC transfusions - WBC rebounded - continue gentle diuresis - supplemental oxygen as needed to keep O2 sat's > 90% - prn bronchodilators with pulmonary hygiene per RT - optimize cardiac function per cardiology team - continue oral antiHTNsive therapy - continue glycemic control with SSI for target BG < 180 mg/dl - GI prophylaxis - VTE prophylaxis with SCD's - continue other care per attending / other consultants ... re-evaluate in am & prn Subjective Date of service: 05/29/19 Principal diagnosis: Ac hypoxemic resp failure; Anemia; Acute CHF exacerbation; DM II Interval history: Patient is seen today for: Ac hypoxemic resp failure; Symptomatic anemia; Acute congestive heart failure exacerbation; Pancytopenia; History of myelodysplastic syndrome; History of diabetes. Seen and examined at bedside; 24hour events reviewed; nursing and respiratory care staff consulted; no adverse overnight events reported to me; resting peacefully in bed; feels better; denies acute chest pains or palpitations; No N/V/F/C Objective Vital Signs - 12hr 05/29/19 05/29/19 05/29/19 01:15 01:20 04:00 Temperature Pulse Rate 78 66 Pulse Rate [ 74 Bilateral Throughout] Respiratory 20 Rate Respiratory 20 Rate [Bilateral Throughout] Blood Pressure O2 Sat by Pulse 95 Oximetry 05/29/19 05/29/19 05/29/19 04:45 07:32 07:33 Temperature 98.4 F 98.6 F Pulse Rate 65 61 Pulse Rate [ 67 Bilateral Throughout] Respiratory 20 16 Rate Respiratory 20 Rate [Bilateral Throughout] Blood Pressure 121/38 145/48 O2 Sat by Pulse 92 99 100 Oximetry 05/29/19 11:14 Temperature Pulse Rate 61 Pulse Rate [ Bilateral Throughout] Respiratory Rate Respiratory Rate [Bilateral Throughout] Blood Pressure 145/48 O2 Sat by Pulse Oximetry Constitutional: no acute distress, other (elderly looking AAF, normocephalic and atraumatic) Eyes: non-icteric ENT: oropharynx moist Neck: supple, no lymphadenopathy, no JVD Effort: mildly labored Ascultation: Bilateral: rhonchi Percussion: Bilateral: not dull Cardiovascular: regular rate and rhythm Gastrointestinal: normoactive bowel sounds, soft, non-tender, non-distended Integumentary: normal Extremities: no cyanosis, no edema, pulses normal, no ischemia or petechiae Neurologic: normal mental status, non-focal exam, pupils equal and round, CN II- XII normal Psychiatric: mood appropriate, affect normal CBC and BMP: 06/01/19 07:10 05/30/19 Unknown ABG, PT/INR, D-dimer: ABG POC ABG pH 7.456 (7.35-7.45) H 05/25/19 23:07 POC ABG pCO2 36.7 (35-45) 05/25/19 23:07 POC ABG pO2 121 (80-105) H 05/25/19 23:07 POC ABG HCO3 25.9 (22-26 mml/L) 05/25/19 23:07 POC ABG Total CO2 27 (23-27mmol/L) 05/25/19 23:07 POC ABG O2 Sat 99 05/25/19 23:07 PT/INR, D-dimer PT 18.1 Sec. (12.2-14.9) H 05/25/19 20:15 INR 1.54 (0.87-1.13) H 05/25/19 20:15 609.27 ng/mlDDU (0-234) H 05/25/19 20:15 Abnormal lab findings: Abnormal Labs 05/25/19 05/25/19 05/25/19 20:15 20:15 20:15 WBC 1.1 L* RBC 1.93 L Hgb 6.0 L Hct 18.2 L* RDW 22.6 H Plt Count 48 L Seg Neuts % (Manual) Lymphocytes % (Manual) Monocytes % (Manual) 19.0 H Eosinophils % (Manual) 7.0 H Basophils % (Manual) 3.0 H Nucleated RBC % Seg Neutrophils # Man 0.5 L Lymphocytes # (Manual) 0.3 L PT 18.1 H INR 1.54 H APTT 40.6 H D-Dimer 609.27 H POC ABG pH POC ABG pO2 BUN 19 H POC Glucose Calcium 8.3 L Total Bilirubin 1.40 H ALT < 5 L Total Creatine Kinase CK-MB (CK-2) Rel Index C-Reactive Protein NT-Pro-B Natriuret Pep Albumin 3.6 L Crossmatch 05/25/19 05/25/19 05/25/19 20:15 21:43 23:07 WBC RBC Hgb Hct RDW Plt Count Seg Neuts % (Manual) Lymphocytes % (Manual) Monocytes % (Manual) Eosinophils % (Manual) Basophils % (Manual) Nucleated RBC % Seg Neutrophils # Man Lymphocytes # (Manual) PT INR APTT D-Dimer POC ABG pH 7.456 H POC ABG pO2 121 H BUN POC Glucose Calcium Total Bilirubin ALT Total Creatine Kinase 17 L CK-MB (CK-2) Rel Index C-Reactive Protein NT-Pro-B Natriuret Pep 5267 H Albumin Crossmatch See Detail 05/26/19 05/26/19 05/26/19 04:50 04:50 06:20 WBC 1.1 L* RBC 2.16 L Hgb 6.6 L Hct 19.7 L* RDW 18.4 H Plt Count 40 L Seg Neuts % (Manual) Lymphocytes % (Manual) Monocytes % (Manual) 10.0 H Eosinophils % (Manual) Basophils % (Manual) Nucleated RBC % 3.0 H Seg Neutrophils # Man 0.6 L Lymphocytes # (Manual) 0.3 L PT INR APTT D-Dimer POC ABG pH POC ABG pO2 BUN POC Glucose 122 H Calcium Total Bilirubin ALT Total Creatine Kinase 8 L CK-MB (CK-2) Rel Index 12.5 H C-Reactive Protein NT-Pro-B Natriuret Pep Albumin Crossmatch 05/26/19 05/26/19 05/26/19 08:46 21:44 Unknown WBC RBC Hgb Hct RDW Plt Count Seg Neuts % (Manual) Lymphocytes % (Manual) Monocytes % (Manual) Eosinophils % (Manual) Basophils % (Manual) Nucleated RBC % Seg Neutrophils # Man Lymphocytes # (Manual) PT INR APTT D-Dimer POC ABG pH POC ABG pO2 BUN POC Glucose 161 H Calcium Total Bilirubin ALT Total Creatine Kinase < 7 L CK-MB (CK-2) Rel Index C-Reactive Protein 12.60 H NT-Pro-B Natriuret Pep Albumin Crossmatch 05/27/19 05/27/19 05/28/19 02:19 21:27 08:50 WBC RBC Hgb Hct RDW Plt Count Seg Neuts % (Manual) Lymphocytes % (Manual) Monocytes % (Manual) Eosinophils % (Manual) Basophils % (Manual) Nucleated RBC % Seg Neutrophils # Man Lymphocytes # (Manual) PT INR APTT D-Dimer POC ABG pH POC ABG pO2 BUN 21 H POC Glucose 126 H 116 H Calcium 7.9 L Total Bilirubin ALT Total Creatine Kinase CK-MB (CK-2) Rel Index C-Reactive Protein NT-Pro-B Natriuret Pep Albumin Crossmatch 05/28/19 05/28/19 05/28/19 09:32 12:26 22:10 WBC 4.0 L RBC 2.17 L Hgb 6.7 L Hct 20.1 L RDW 20.6 H Plt Count 14 L* Seg Neuts % (Manual) 74.0 H Lymphocytes % (Manual) Monocytes % (Manual) Eosinophils % (Manual) Basophils % (Manual) Nucleated RBC % Seg Neutrophils # Man Lymphocytes # (Manual) 0.8 L PT INR APTT D-Dimer POC ABG pH POC ABG pO2 BUN POC Glucose 120 H 131 H Calcium Total Bilirubin ALT Total Creatine Kinase CK-MB (CK-2) Rel Index C-Reactive Protein NT-Pro-B Natriuret Pep Albumin Crossmatch 05/29/19 05/29/19 05/29/19 07:49 08:49 11:55 WBC 3.2 L RBC 2.40 L Hgb 7.5 L Hct 22.1 L RDW 18.4 H Plt Count 11 L* Seg Neuts % (Manual) 72.0 H Lymphocytes % (Manual) 10.0 L Monocytes % (Manual) Eosinophils % (Manual) Basophils % (Manual) Nucleated RBC % Seg Neutrophils # Man Lymphocytes # (Manual) 0.3 L PT INR APTT D-Dimer POC ABG pH POC ABG pO2 BUN POC Glucose 121 H 106 H Calcium Total Bilirubin ALT Total Creatine Kinase CK-MB (CK-2) Rel Index C-Reactive Protein NT-Pro-B Natriuret Pep Albumin Crossmatch Chest x-ray: image reviewed Allied health notes reviewed: nursing
[2019-05-29] MEDS ORDERED: NACL 0.9% 500 ML 500 ML IV ONE (12:36)
--- NOTE | 2019-05-29 15:06 | Progress Note ---
Assessment and Plan Cardiac status is currently stable. Continue current management. The patient has been seen in conjunction with Dr. Faria, who agrees with the assessment and plan. 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 She has no complaints. Telemetry reviewed - SR in 80s. Echocardiogram reviewed: EF 45-50%, LVH, trace MR, mncd-ee-daciymfd TR, RVSP 49 (mild pulm htn), minimal pericardial effusion. Objective Last Vital Signs Temp 98.1 F 05/29/19 12:44 Pulse 69 05/29/19 13:27 Resp 18 05/29/19 13:27 BP 131/40 05/29/19 12:44 Pulse Ox 97 05/29/19 12:44 - Physical Examination General: No Apparent Distress HEENT: Positive: PERRL, Normocephaly, Mucus Membranes Moist Neck: Positive: neck supple, trachea midline Cardiac: Positive: Reg Rate and Rhythm Lungs: Positive: Normal Exam Neuro: Positive: Grossly Intact Abdomen: Positive: Unremarkable. Negative: Tender /Rectal: Other (deferred) Skin: Positive: Clear. Negative: Rash Musculoskeletal: No Pain Extremities: Present: normal. Absent: edema - Labs and Meds CBC 05/29/19 Range/Units 08:49 WBC 3.2 L (4.5-11.0) K/mm3 RBC 2.40 L (3.65-5.03) M/mm3 Hgb 7.5 L (10.1-14.3) gm/dl Hct 22.1 L (30.3-42.9) % Plt Count 11 L* (140-440) K/mm3 - Imaging and Cardiology EKG: report reviewed, image reviewed Echo: pending, report reviewed (05/2019: EF 45-50%, LVH, trace MR, pbel-pe-ydobntjo TR, RVSP 49 (mild pulm htn), minimal pericardial effusion. ) - EKG Sinus rhythms and dysrhythmias: sinus rhythm - Allied health notes Allied health notes reviewed: nursing
[2019-05-29] MEDS: TYLENOL PO PRN (19:44)
[2019-05-30] MEDS: ZOSYN/NS 3.375GM/50ML 3.375 GM/50 ML BAG IV SCH ×2 (00:53→06:13)
[2019-05-30] MEDS: DUONEB *Not for PRN Use IH SCH ×4 (02:09→21:03)
[2019-05-30] MEDS: LASIX IV SCH (06:05)
--- NOTE | 2019-05-30 07:39 | Hem/Onc Progress Note ---
Assessment and Plan 1. History of myelodysplastic syndrome, anemia, leukopenia, thrombocytopenia. The patient has received first dose of decitabine in the end of March and received G-CSF after that. 2. Recent hospitalization at [place] and received blood transfusion. 3. Is anemic. Transfusion support. 4. BNP high, shortness of breath, chest pain, seen by Cardiology team. 5. For the low platelet, in case of bleeding, transfusion support. 6. Hypertension history. 7. History of diabetes. 8. G-CSF support. 9. BiPAP for respiratory issues. 10. Antibiotic support. 11. For the myelodysplastic syndrome, she would need at least 4 cycles of chemotherapy to evaluate if there is a response. She would need transfusion support in the interim. transfusion support d/w dr Garcia pt requesting port placement - Patient Problems (1) Neutropenia Current Visit: Yes Status: Acute Subjective Date of service: 05/30/19 Principal diagnosis: MDS Interval history: NO FEVER Objective - Exam Narrative Exam: Pain - none General appearance - breathing better Performance status limited self care Eyes - no icterus, pallor + ENT - no bleeding LNs cervical not palpable Neck - no LN Respiratory Normal Breath sounds - CTA CVS S1 S2 + Extremities toe - bandage General GI Soft Rectal deferred female - deferred Skin warm Musculoskeletal moving extremitites Neurologically awake - oriented - Constitutional Vitals: Last Vital Signs Temp 98.5 F 05/30/19 04:51 Pulse 65 05/30/19 04:11 Resp 16 05/30/19 04:11 BP 142/56 05/30/19 04:11 Pulse Ox 97 05/30/19 04:11 - Labs Lab Results: Laboratory Results - last 24 hr 05/25/19 05/29/19 05/29/19 21:43 07:49 08:49 WBC 3.2 L RBC 2.40 L Hgb 7.5 L Hct 22.1 L MCV 92 MCH 31 MCHC 34 RDW 18.4 H Plt Count 11 L* Add Manual Diff Complete Total Counted 100 Seg Neuts % (Manual) 72.0 H Band Neutrophils % 14 Lymphocytes % (Manual) 10.0 L Reactive Lymphs % (Man) 0 Monocytes % (Manual) 3 Eosinophils % (Manual) 1.0 Basophils % (Manual) 0 Metamyelocytes % 0 Myelocytes % 0 Promyelocytes % 0 Blast Cells % 0 Nucleated RBC % Not Reportable Seg Neutrophils # Man 2.3 Band Neutrophils # 0.4 Lymphocytes # (Manual) 0.3 L Abs React Lymphs (Man) 0.0 Monocytes # (Manual) 0.0 Eosinophils # (Manual) 0.0 Basophils # (Manual) 0.0 Metamyelocytes # 0.0 Myelocytes # 0.0 Promyelocytes # 0.0 Blast Cells # 0.0 WBC Morphology Not Reportable Hypersegmented Neuts Not Reportable Hyposegmented Neuts Not Reportable Hypogranular Neuts Not Reportable Smudge Cells Not Reportable Toxic Granulation Not Reportable Toxic Vacuolation Not Reportable Dohle Bodies Not Reportable Pelger-Huet Anomaly Not Reportable Pao Rods Not Reportable Platelet Estimate Not Reportable Clumped Platelets Not Reportable Plt Clumps, EDTA Not Reportable Large Platelets Not Reportable Giant Platelets Not Reportable Platelet Satelliting Not Reportable Plt Morphology Comment Not Reportable RBC Morphology Not Reportable Dimorphic RBCs Not Reportable Polychromasia Not Reportable Hypochromasia 1+ Poikilocytosis Not Reportable Anisocytosis 1+ Microcytosis Not Reportable Macrocytosis Not Reportable Spherocytes Not Reportable Pappenheimer Bodies Not Reportable Sickle Cells Not Reportable Target Cells Not Reportable Tear Drop Cells Not Reportable Ovalocytes Not Reportable Helmet Cells Not Reportable [place] Bodies Not Reportable [place] Rings Not Reportable [place] Cells Not Reportable Bite Cells Not Reportable Crenated Cell Not Reportable Elliptocytes Not Reportable Acanthocytes (Spur) Not Reportable Rouleaux Not Reportable Hemoglobin C Crystals Not Reportable Schistocytes Not Reportable Malaria parasites Not Reportable Chung Bodies Not Reportable Hem Pathologist Commnt No POC Glucose 121 H Blood Type O POSITIVE Antibody Screen Negative Crossmatch See Detail 05/29/19 05/29/19 05/29/19 08:49 11:55 17:51 WBC RBC Hgb Hct MCV MCH MCHC RDW Plt Count Add Manual Diff Total Counted Seg Neuts % (Manual) Band Neutrophils % Lymphocytes % (Manual) Reactive Lymphs % (Man) Monocytes % (Manual) Eosinophils % (Manual) Basophils % (Manual) Metamyelocytes % Myelocytes % Promyelocytes % Blast Cells % Nucleated RBC % Seg Neutrophils # Man Band Neutrophils # Lymphocytes # (Manual) Abs React Lymphs (Man) Monocytes # (Manual) Eosinophils # (Manual) Basophils # (Manual) Metamyelocytes # Myelocytes # Promyelocytes # Blast Cells # WBC Morphology TNR Hypersegmented Neuts Hyposegmented Neuts Hypogranular Neuts Smudge Cells Toxic Granulation Toxic Vacuolation Dohle Bodies Pelger-Huet Anomaly Pao Rods Platelet Estimate Clumped Platelets Plt Clumps, EDTA Large Platelets Giant Platelets Platelet Satelliting Plt Morphology Comment RBC Morphology Dimorphic RBCs Polychromasia Hypochromasia Poikilocytosis Anisocytosis Microcytosis Macrocytosis Spherocytes Pappenheimer Bodies Sickle Cells Target Cells Tear Drop Cells Ovalocytes Helmet Cells [place] Bodies [place] Rings Manuel Cells Bite Cells Crenated Cell Elliptocytes Acanthocytes (Spur) Rouleaux Hemoglobin C Crystals Schistocytes Malaria parasites Chung Bodies Hem Pathologist Commnt POC Glucose 106 H 112 H Blood Type Antibody Screen Crossmatch 05/29/19 20:49 WBC RBC Hgb Hct MCV MCH MCHC RDW Plt Count Add Manual Diff Total Counted Seg Neuts % (Manual) Band Neutrophils % Lymphocytes % (Manual) Reactive Lymphs % (Man) Monocytes % (Manual) Eosinophils % (Manual) Basophils % (Manual) Metamyelocytes % Myelocytes % Promyelocytes % Blast Cells % Nucleated RBC % Seg Neutrophils # Man Band Neutrophils # Lymphocytes # (Manual) Abs React Lymphs (Man) Monocytes # (Manual) Eosinophils # (Manual) Basophils # (Manual) Metamyelocytes # Myelocytes # Promyelocytes # Blast Cells # WBC Morphology Hypersegmented Neuts Hyposegmented Neuts Hypogranular Neuts Smudge Cells Toxic Granulation Toxic Vacuolation Dohle Bodies Pelger-Huet Anomaly Pao Rods Platelet Estimate Clumped Platelets Plt Clumps, EDTA Large Platelets Giant Platelets Platelet Satelliting Plt Morphology Comment RBC Morphology Dimorphic RBCs Polychromasia Hypochromasia Poikilocytosis Anisocytosis Microcytosis Macrocytosis Spherocytes Pappenheimer Bodies Sickle Cells Target Cells Tear Drop Cells Ovalocytes Helmet Cells [place] Bodies [place] Rings [place] Cells Bite Cells Crenated Cell Elliptocytes Acanthocytes (Spur) Rouleaux Hemoglobin C Crystals Schistocytes Malaria parasites Chung Bodies Hem Pathologist Commnt POC Glucose 149 H Blood Type Antibody Screen Crossmatch Medications & Allergies - Medications Allergies/Adverse Reactions: Allergies No Known Allergies Allergy (Verified 05/25/19 20:14) Home Medications: Home Medications Medication Instructions Recorded Confirmed Last Taken Type Acetaminophen [Acetaminophen TAB] 500 mg PO Q6HR 05/26/19 05/26/19 Unknown History Venlafaxine [Effexor] 75 mg PO BID 05/26/19 05/26/19 Unknown History Amlodipine Besylate [Norvasc] 5 mg PO DAILY #30 tablet 05/28/19 Unknown Rx HYDROcodone/APAP 5-325 [[place] 1 each PO Q6HR PRN #10 tablet 05/28/19 Unknown Rx 5-325 mg TAB] Loratadine [Claritin] 10 mg PO DAILY #30 tablet 05/28/19 Unknown Rx Metformin HCl [metFORMIN] 1,000 mg PO BID #60 tablet 05/28/19 Unknown Rx Metoprolol [Lopressor TAB] 25 mg PO BID #60 tablet 05/28/19 Unknown Rx Polyethylene Glycol 3350 [Miralax 17 gm PO QDAY #30 powd.pack 05/28/19 Unknown Rx 3350] Active Medications: Generic Name Dose Route Start Last Admin Trade Name Freq PRN Reason Stop Dose Admin Acetaminophen 650 mg 05/26/19 00:23 05/29/19 19:44 Tylenol PO 650 mg Q4H PRN Administration Pain MILD(1-3)/Fever >100.5/COLUNGA Acetaminophen/Hydrocodone Bitart 1 each 05/28/19 05:30 05/28/19 23:22 [place] 5/325 PO 1 each Q6H PRN Administration Pain, Moderate (4-6) Albuterol/Ipratropium 1 ampul 05/26/19 02:00 05/30/19 02:09 Duoneb *Not For Prn Use* IH 1 ampul Q6HRT XOCHITL Administration Amlodipine Besylate 5 mg 05/26/19 11:00 05/29/19 11:14 Norvasc PO 5 mg DAILY XOCHITL Administration Dextrose 50 ml 05/26/19 00:23 D50w (25gm) Syringe IV PRN PRN Hypoglycemia Famotidine 20 mg 05/26/19 13:00 05/29/19 11:14 Pepcid PO 20 mg QDAY XOCHITL Administration Furosemide 20 mg 05/26/19 06:00 05/30/19 06:05 Lasix IV 20 mg 0600,1800 XOCHITL Administration Piperacillin Sod/Tazobactam Sod 3.375 gm in 50 mls @ 100 mls/hr 05/26/19 14:00 05/30/19 06:13 Zosyn/Ns 3.375gm/50ml IV 05/30/19 13:59 100 mls/hr Q8H XOCHITL Administration Insulin Human Regular 0 units 05/28/19 07:30 05/29/19 21:59 Humulin R SUB-Q Not Given ACHS [facility] Protocol Metoprolol Tartrate 25 mg 05/26/19 11:00 05/29/19 21:30 Lopressor PO Not Given BID [facility] Ondansetron HCl 4 mg 05/26/19 00:23 05/27/19 12:04 Zofran IV 4 mg Q8H PRN Administration Nausea And Vomiting Phenol 1 spray 05/27/19 16:30 05/27/19 18:45 Chloraseptic MM 1 spray PRN PRN Administration Sore Throat Sodium Chloride 10 ml 05/26/19 10:00 05/29/19 22:35 Sodium Chloride Flush Syringe 10 Ml IV 10 ml BID XOCHITL Administration Sodium Chloride 10 ml 05/26/19 00:23 05/26/19 06:15 Sodium Chloride Flush Syringe 10 Ml IV 10 ml PRN PRN Administration LINE FLUSH
[2019-05-30 08:14] LABS: Hematocrit 20.4 % (30.3-42.9); Hemoglobin 6.9 gm/dl (10.1-14.3); Mean Corpuscular HGB Conc 34 % (30-34); Mean Corpuscular Volume 92 fl (79-97); Red Blood Count 2.22 M/mm3 (3.65-5.03); Red Cell Distribution Width 18.4 % (13.2-15.2)
[2019-05-30 08:23] LABS: Platelet Count 7 K/mm3 (140-440)
[2019-05-30] MEDS: HumuLIN R SUB-Q SCH ×4 (08:31→23:17)
[2019-05-30 08:43] LABS: Albumin 3.8 g/dL (3.9-5); BUN/Creatinine Ratio 23; Blood Urea Nitrogen 23 mg/dL (7-17); Hemolysis Index 5
[2019-05-30 08:47] LABS: Alanine Aminotransferase < 5 units/L (7-56)
[2019-05-30] MEDS ORDERED: NACL 0.9% 500 ML 500 ML IV NR (09:30)
[2019-05-30 09:59] LABS: Band Neutrophils # (Manual) 0.2 K/mm3; Basophils % (Manual) 0 % (0.0-1.8); Hypochromasia 1+; Platelet Estimate Consistent w Auto; Total Cells Counted 100
[2019-05-30 10:14] LABS: Partial Thromboplastin Time 32.1 Sec. (24.2-36.6)
[2019-05-30 10:22] LABS: INR 1.3 (0.87-1.13)
[2019-05-30] MEDS: NORVASC PO SCH (11:06)
[2019-05-30] MEDS: PEPCID PO SCH (11:06)
[2019-05-30] MEDS: LOPRESSOR PO SCH ×2 (11:07→23:17)
--- NOTE | 2019-05-30 12:35 | Consultation ---
History of Present Illness Consult date: 05/30/19 Reason for consult: other (port placement) Requesting physician: RICARDO TOLLIVER Chief complaint: MDS - History of present illness History of present illness: 78yo F MDS presents to the emergency department with shortness of breath and chest pain. Patient has a history of anemia and also has been found to help severe thrombocytopenia. She may need of chemotherapy for her MDS. Request is been made to Gen. surgery for port placement. Patient denies any prior surgery, trauma, recent infection to the head or neck. Patient is right-handed. Past History Past Medical History: anemia, diabetes, hypertension, other (MDS) Past Surgical History: cholecystectomy Social history: denies: smoking, alcohol abuse, prescription drug abuse Medications and Allergies Allergies Allergy/AdvReac Type Severity Reaction Status Date / Time No Known Allergies Allergy Verified 05/25/19 20:14 Home Medications Medication Instructions Recorded Confirmed Last Taken Type Acetaminophen [Acetaminophen TAB] 500 mg PO Q6HR 05/26/19 05/26/19 Unknown History Venlafaxine [Effexor] 75 mg PO BID 05/26/19 05/26/19 Unknown History Amlodipine Besylate [Norvasc] 5 mg PO DAILY #30 tablet 05/28/19 Unknown Rx HYDROcodone/APAP 5-325 [Dalton 1 each PO Q6HR PRN #10 tablet 05/28/19 Unknown Rx 5-325 mg TAB] Loratadine [Claritin] 10 mg PO DAILY #30 tablet 05/28/19 Unknown Rx Metformin HCl [metFORMIN] 1,000 mg PO BID #60 tablet 05/28/19 Unknown Rx Metoprolol [Lopressor TAB] 25 mg PO BID #60 tablet 05/28/19 Unknown Rx Polyethylene Glycol 3350 [Miralax 17 gm PO QDAY #30 powd.pack 05/28/19 Unknown Rx 3350] Active Meds: Active Medications Acetaminophen (Tylenol) 650 mg PO Q4H PRN PRN Reason: Pain MILD(1-3)/Fever >100.5/COLUNGA Last Admin: 05/29/19 19:44 Dose: 650 mg Documented by: Acetaminophen/Hydrocodone Bitart (Dalton 5/325) 1 each PO Q6H PRN PRN Reason: Pain, Moderate (4-6) Last Admin: 05/28/19 23:22 Dose: 1 each Documented by: Albuterol/Ipratropium (Duoneb *Not For Prn Use*) 1 ampul IH Q6HRT [facility] Last Admin: 05/30/19 08:07 Dose: 1 ampul Documented by: Amlodipine Besylate (Norvasc) 5 mg PO DAILY [facility] Last Admin: 05/30/19 11:06 Dose: 5 mg Documented by: Dextrose (D50w (25gm) Syringe) 50 ml IV PRN PRN PRN Reason: Hypoglycemia Famotidine (Pepcid) 20 mg PO QDAY [facility] Last Admin: 05/30/19 11:06 Dose: 20 mg Documented by: Furosemide (Lasix) 20 mg IV 0600,1800 [facility] Last Admin: 05/30/19 06:05 Dose: 20 mg Documented by: Piperacillin Sod/Tazobactam Sod (Zosyn/Ns 3.375gm/50ml) 3.375 gm in 50 mls @ 100 mls/hr IV Q8H [facility] Stop: 05/30/19 13:59 Last Admin: 05/30/19 06:13 Dose: 100 mls/hr Documented by: Sodium Chloride (Nacl 0.9% 500 Ml) 500 mls @ 0 mls/hr IV ONCE NR Stop: 05/30/19 16:00 Insulin Human Regular (Humulin R) 0 units SUB-Q ACHS [facility]; Protocol Last Admin: 05/29/19 21:59 Dose: Not Given Documented by: Metoprolol Tartrate (Lopressor) 25 mg PO BID [facility] Last Admin: 05/30/19 11:07 Dose: 25 mg Documented by: Ondansetron HCl (Zofran) 4 mg IV Q8H PRN PRN Reason: Nausea And Vomiting Last Admin: 05/27/19 12:04 Dose: 4 mg Documented by: Phenol (Chloraseptic) 1 spray MM PRN PRN PRN Reason: Sore Throat Last Admin: 05/27/19 18:45 Dose: 1 spray Documented by: Sodium Chloride (Sodium Chloride Flush Syringe 10 Ml) 10 ml IV BID [facility] Last Admin: 05/29/19 22:35 Dose: 10 ml Documented by: Sodium Chloride (Sodium Chloride Flush Syringe 10 Ml) 10 ml IV PRN PRN PRN Reason: LINE FLUSH Last Admin: 05/26/19 06:15 Dose: 10 ml Documented by: Review of Systems - Constitutional no fever, no chills - Cardiovascular chest pain, shortness of breath - Respiratory no cough - Gastrointestinal no abdominal pain, no nausea, no vomiting - Integumentary no rash, no redness, no sores, no wounds, no boils Exam Vital Signs Pulse 74 05/25/19 20:00 - General physical appearance Positive: no distress, no pain, other (pleasant elderly female) - Eyes Positive: normal occular movement - Respiratory Positive: normal expansion, normal respiratory effort, clear to auscultation - Cardiovascular Rhythm: regular Heart Sounds: Present: systolic murmur - Extremities Extremities: normal temperature, normal color - Abdomen Abdomen: Present: soft - Integumentary no rash, no growths, no abnormal pigmentation, other (no signs of prior surgery or trauma to the neck and upper chest) - Neurologic Neurologic: alert and oriented to time, place and person, motor strength and sensation are grossly intact - Psychiatric Psychiatric: appropriate mood/affect, intact judgment & insight, cooperative Results - Labs 05/30/19 Unknown 05/30/19 Unknown Abnormal lab results 05/25/19 05/29/19 05/29/19 Range/Units 21:43 17:51 20:49 WBC (4.5-11.0) K/mm3 RBC (3.65-5.03) M/mm3 Hgb (10.1-14.3) gm/dl Hct (30.3-42.9) % RDW (13.2-15.2) % Plt Count (140-440) K/mm3 Eosinophils % (Manual) (0.0-4.3) % Seg Neutrophils # Man (1.8-7.7) K/mm3 Lymphocytes # (Manual) (1.2-5.4) K/mm3 PT (12.2-14.9) Sec. INR (0.87-1.13) Potassium (3.6-5.0) mmol/L BUN (7-17) mg/dL Glucose (65-100) mg/dL POC Glucose 112 H 149 H (70-105) Calcium (8.4-10.2) mg/dL ALT (7-56) units/L Albumin (3.9-5) g/dL Crossmatch See Detail 05/30/19 05/30/19 05/30/19 Range/Units 07:53 Unknown Unknown WBC 1.4 L* (4.5-11.0) K/mm3 RBC 2.22 L (3.65-5.03) M/mm3 Hgb 6.9 L (10.1-14.3) gm/dl Hct 20.4 L (30.3-42.9) % RDW 18.4 H (13.2-15.2) % Plt Count 7 L* (140-440) K/mm3 Eosinophils % (Manual) 9.0 H (0.0-4.3) % Seg Neutrophils # Man 0.8 L (1.8-7.7) K/mm3 Lymphocytes # (Manual) 0.3 L (1.2-5.4) K/mm3 PT 15.9 H (12.2-14.9) Sec. INR 1.30 H (0.87-1.13) Potassium (3.6-5.0) mmol/L BUN (7-17) mg/dL Glucose (65-100) mg/dL POC Glucose 115 H (70-105) Calcium (8.4-10.2) mg/dL ALT (7-56) units/L Albumin (3.9-5) g/dL Crossmatch 05/30/19 Range/Units Unknown WBC (4.5-11.0) K/mm3 RBC (3.65-5.03) M/mm3 Hgb (10.1-14.3) gm/dl Hct (30.3-42.9) % RDW (13.2-15.2) % Plt Count (140-440) K/mm3 Eosinophils % (Manual) (0.0-4.3) % Seg Neutrophils # Man (1.8-7.7) K/mm3 Lymphocytes # (Manual) (1.2-5.4) K/mm3 PT (12.2-14.9) Sec. INR (0.87-1.13) Potassium 3.5 L (3.6-5.0) mmol/L BUN 23 H (7-17) mg/dL Glucose 111 H (65-100) mg/dL POC Glucose (70-105) Calcium 8.0 L (8.4-10.2) mg/dL ALT < 5 L (7-56) units/L Albumin 3.8 L (3.9-5) g/dL Crossmatch Diabetes panel 05/30/19 Range/Units Unknown Sodium 144 (137-145) mmol/L Potassium 3.5 L (3.6-5.0) mmol/L Chloride 100.8 (98-107) mmol/L Carbon Dioxide 30 (22-30) mmol/L BUN 23 H (7-17) mg/dL Creatinine 1.0 (0.7-1.2) mg/dL Glucose 111 H (65-100) mg/dL Calcium 8.0 L (8.4-10.2) mg/dL AST 7 (5-40) units/L ALT < 5 L (7-56) units/L Alkaline Phosphatase 48 (35-129) units/L Total Protein 6.8 (6.3-8.2) g/dL Albumin 3.8 L (3.9-5) g/dL Calcium panel 05/30/19 Range/Units Unknown Calcium 8.0 L (8.4-10.2) mg/dL Albumin 3.8 L (3.9-5) g/dL Pituitary panel 05/30/19 Range/Units Unknown Sodium 144 (137-145) mmol/L Potassium 3.5 L (3.6-5.0) mmol/L Chloride 100.8 (98-107) mmol/L Carbon Dioxide 30 (22-30) mmol/L BUN 23 H (7-17) mg/dL Creatinine 1.0 (0.7-1.2) mg/dL Glucose 111 H (65-100) mg/dL Calcium 8.0 L (8.4-10.2) mg/dL Adrenal panel 05/30/19 Range/Units Unknown Sodium 144 (137-145) mmol/L Potassium 3.5 L (3.6-5.0) mmol/L Chloride 100.8 (98-107) mmol/L Carbon Dioxide 30 (22-30) mmol/L BUN 23 H (7-17) mg/dL Creatinine 1.0 (0.7-1.2) mg/dL Glucose 111 H (65-100) mg/dL Calcium 8.0 L (8.4-10.2) mg/dL Total Bilirubin 1.10 (0.1-1.2) mg/dL AST 7 (5-40) units/L ALT < 5 L (7-56) units/L Alkaline Phosphatase 48 (35-129) units/L Total Protein 6.8 (6.3-8.2) g/dL Albumin 3.8 L (3.9-5) g/dL - Imaging CT scan - chest: report reviewed, image reviewed Assessment and Plan - Patient Problems (1) Myelodysplastic syndrome Current Visit: Yes Status: Acute Plan to address problem: Pt stable. Patient would like to have port placed. Placement appears indicated based on the review of the most recent notes. Procedure, risks, benefits were discussed with the patient. All questions were answered. Consent was obtained. Tentatively looking to schedule surgery later this week. This is dependent on team's ability to increase platelets to at least 50,000. Patient is aware that if her labs change on the day of surgery, we may have to cancel if it is not safe to proceed. Please call with questions. time=30min
--- NOTE | 2019-05-30 12:56 | Progress Note ---
Assessment and Plan Assessment and plan: MDS. Pt with Pancytopenia/anemia--PRBCs and platelets have been given on 2 separate occasions. Patient still with anemia and thrombocytopenia. Continue to transfuse as needed. Heme/Onc following Acute hypoxic resp failure. Resolved. Etiology sec to HF and pulm htn Elevated DDimer - chest CTA negative for PE. Acute HFpEF. Continue IV lasix BID. Echocardiogram revealed mild concentric left ventricular hypertrophy with EF of 45-50%. Left ventricular systolic function was mildly decreased. Patient with mild pulmonary hypertension. Cardiology following. Accelerated HTN. Optimize BPs - with norvasc and lopressor. DM II. Accucheks ac and hs. SSRI Disposition. 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 (5) Hypoxia Current Visit: Yes Status: Acute (6) Myelodysplastic syndrome Current Visit: Yes Status: Acute (7) Neutropenia Current Visit: Yes Status: Acute (8) Diabetes Current Visit: Yes Status: Chronic (9) Pancytopenia Current Visit: Yes Status: Chronic History Interval history: No new issues overnight Hospitalist Physical - Constitutional Vitals: Temp Pulse Resp BP Pulse Ox 98.0 F 71 18 140/38 100 05/30/19 11:47 05/30/19 11:47 05/30/19 11:47 05/30/19 11:47 05/30/19 11:47 General appearance: Present: no acute distress, well-nourished - EENT Eyes: Present: PERRL, EOM intact ENT: hearing intact, clear oral mucosa, dentition normal - Neck Neck: Present: supple, normal ROM - Respiratory Respiratory effort: normal Respiratory: bilateral: CTA - Cardiovascular Rhythm: regular Heart Sounds: Present: S1 & S2. Absent: gallop, rub - Extremities Extremities: no ischemia, No edema, Full ROM - Abdominal General gastrointestinal: soft, non-tender, non-distended, normal bowel sounds - Integumentary Integumentary: Present: clear, warm, dry - Neurologic Neurologic: CNII-XII intact, moves all extremities Results - Labs CBC & Chem 7: 05/30/19 Unknown 05/30/19 Unknown Labs: Laboratory Last Values WBC 1.4 K/mm3 (4.5-11.0) L* 05/30/19 Unknown RBC 2.22 M/mm3 (3.65-5.03) L 05/30/19 Unknown Hgb 6.9 gm/dl (10.1-14.3) L 05/30/19 Unknown Hct 20.4 % (30.3-42.9) L 05/30/19 Unknown MCV 92 fl (79-97) 05/30/19 Unknown MCH 31 pg (28-32) 05/30/19 Unknown MCHC 34 % (30-34) 05/30/19 Unknown RDW 18.4 % (13.2-15.2) H 05/30/19 Unknown Plt Count 7 K/mm3 (140-440) L* 05/30/19 Unknown Blount % (Auto) Political Anthropologist 05/26/19 04:50 Baso % (Auto) Political Anthropologist 05/25/19 20:15 Add Manual Diff Complete 05/30/19 Unknown Total Counted 100 05/30/19 Unknown Seg Neuts % (Manual) 57.0 % (40.0-70.0) 05/30/19 Unknown 11.0 % 05/30/19 Unknown 19.0 % (13.4-35.0) 05/30/19 Unknown Reactive Lymphs % (Man) 0 % 05/30/19 Unknown 3.0 % (0.0-7.3) 05/30/19 Unknown 9.0 % (0.0-4.3) H 05/30/19 Unknown 0 % (0.0-1.8) 05/30/19 Unknown 1.0 % 05/30/19 Unknown 0 % 05/30/19 Unknown 0 % 05/30/19 Unknown 0 % 05/30/19 Unknown Nucleated RBC % Not Reportable 05/30/19 Unknown Seg Neutrophils # Man 0.8 K/mm3 (1.8-7.7) L 05/30/19 Unknown Band Neutrophils # 0.2 K/mm3 05/30/19 Unknown 0.3 K/mm3 (1.2-5.4) L 05/30/19 Unknown Abs React Lymphs (Man) 0.0 K/mm3 05/30/19 Unknown 0.0 K/mm3 (0.0-0.8) 05/30/19 Unknown 0.1 K/mm3 (0.0-0.4) 05/30/19 Unknown 0.0 K/mm3 (0.0-0.1) 05/30/19 Unknown 0.0 K/mm3 05/30/19 Unknown 0.0 K/mm3 05/30/19 Unknown 0.0 K/mm3 05/30/19 Unknown Blast Cells # 0.0 K/mm3 05/30/19 Unknown WBC Morphology Not Reportable 05/30/19 Unknown Hypersegmented Neuts Not Reportable 05/30/19 Unknown Hyposegmented Neuts Not Reportable 05/30/19 Unknown Hypogranular Neuts Not Reportable 05/30/19 Unknown Not Reportable 05/30/19 Unknown Not Reportable 05/30/19 Unknown Not Reportable 05/30/19 Unknown Not Reportable 05/30/19 Unknown Not Reportable 05/30/19 Unknown Not Reportable 05/30/19 Unknown Consistent w auto 05/30/19 Unknown Not Reportable 05/30/19 Unknown Plt Clumps, EDTA Not Reportable 05/30/19 Unknown Not Reportable 05/30/19 Unknown Not Reportable 05/30/19 Unknown Not Reportable 05/30/19 Unknown Plt Morphology Comment Not Reportable 05/30/19 Unknown RBC Morphology Not Reportable 05/30/19 Unknown Dimorphic RBCs Not Reportable 05/30/19 Unknown Not Reportable 05/30/19 Unknown 1+ 05/30/19 Unknown Not Reportable 05/30/19 Unknown Not Reportable 05/30/19 Unknown Not Reportable 05/30/19 Unknown Not Reportable 05/30/19 Unknown Not Reportable 05/30/19 Unknown Not Reportable 05/30/19 Unknown Not Reportable 05/30/19 Unknown Not Reportable 05/30/19 Unknown Not Reportable 05/30/19 Unknown Not Reportable 05/30/19 Unknown Not Reportable 05/30/19 Unknown Not Reportable 05/30/19 Unknown Not Reportable 05/30/19 Unknown Not Reportable 05/30/19 Unknown Not Reportable 05/30/19 Unknown Not Reportable 05/30/19 Unknown Not Reportable 05/30/19 Unknown Acanthocytes (Spur) Not Reportable 05/30/19 Unknown Rouleaux Not Reportable 05/30/19 Unknown Not Reportable 05/30/19 Unknown Not Reportable 05/30/19 Unknown Not Reportable 05/30/19 Unknown Not Reportable 05/30/19 Unknown Hem Pathologist Commnt No 05/30/19 Unknown PT 15.9 Sec. (12.2-14.9) H 05/30/19 Unknown INR 1.30 (0.87-1.13) H 05/30/19 Unknown APTT 32.1 Sec. (24.2-36.6) 05/30/19 Unknown 609.27 ng/mlDDU (0-234) H 05/25/19 20:15 POC ABG pH 7.456 (7.35-7.45) H 05/25/19 23:07 POC ABG pCO2 36.7 (35-45) 05/25/19 23:07 POC ABG pO2 121 (80-105) H 05/25/19 23:07 POC ABG HCO3 25.9 (22-26 mml/L) 05/25/19 23:07 POC ABG Total CO2 27 (23-27mmol/L) 05/25/19 23:07 POC ABG O2 Sat 99 05/25/19 23:07 POC ABG Base Excess 2 ((-2) - (+3)mmol/L) 05/25/19 23:07 40 % 05/25/19 23:07 Sodium 144 mmol/L (137-145) 05/30/19 Unknown Potassium 3.5 mmol/L (3.6-5.0) L 05/30/19 Unknown Chloride 100.8 mmol/L (98-107) 05/30/19 Unknown Carbon Dioxide 30 mmol/L (22-30) 05/30/19 Unknown 17 mmol/L 05/30/19 Unknown BUN 23 mg/dL (7-17) H 05/30/19 Unknown 1.0 mg/dL (0.7-1.2) 05/30/19 Unknown Estimated GFR > 60 ml/min 05/30/19 Unknown 23 % 05/30/19 Unknown Glucose 111 mg/dL (65-100) H 05/30/19 Unknown POC Glucose 118 (70-105) H 05/30/19 11:50 Lactic Acid 1.10 mmol/L (0.7-2.0) 05/25/19 21:43 Calcium 8.0 mg/dL (8.4-10.2) L 05/30/19 Unknown Magnesium 2.10 mg/dL (1.7-2.3) 05/25/19 20:15 1.10 mg/dL (0.1-1.2) 05/30/19 Unknown AST 7 units/L (5-40) 05/30/19 Unknown ALT < 5 units/L (7-56) L 05/30/19 Unknown 48 units/L (35-129) 05/30/19 Unknown < 7 units/L (30-135) L 05/26/19 08:46 CK-MB (CK-2) < 1.0 ng/mL (0.0-4.0) 05/26/19 08:46 CK-MB (CK-2) Rel Index 0.0 (0-4) 05/26/19 08:46 < 0.010 ng/mL (0.00-0.029) 05/26/19 08:46 12.60 mg/dL (0.00-1.30) H 05/26/19 Unknown NT-Pro-B Natriuret Pep 5267 pg/mL (0-900) H 05/25/19 20:15 6.8 g/dL (6.3-8.2) 05/30/19 Unknown 3.8 g/dL (3.9-5) L 05/30/19 Unknown 1.3 % 05/30/19 Unknown TSH 1.200 mlU/mL (0.270-4.200) 05/25/19 20:15 Blood Type O POSITIVE 05/30/19 09:00 Antibody Screen Negative 05/25/19 21:43 Crossmatch See Detail 05/25/19 21:43 Active Medications - Current Medications Current Medications: Generic Name Dose Route Start Last Admin Trade Name Freq PRN Reason Stop Dose Admin Acetaminophen 650 mg 05/26/19 00:23 05/29/19 19:44 Tylenol PO 650 mg Q4H PRN Administration Pain MILD(1-3)/Fever >100.5/COLUNGA Acetaminophen/Hydrocodone Bitart 1 each 05/28/19 05:30 05/28/19 23:22 [place] 5/325 PO 1 each Q6H PRN Administration Pain, Moderate (4-6) Albuterol/Ipratropium 1 ampul 05/26/19 02:00 05/30/19 08:07 Duoneb *Not For Prn Use* IH 1 ampul Q6HRT [facility] Administration Amlodipine Besylate 5 mg 05/26/19 11:00 05/30/19 11:06 Norvasc PO 5 mg DAILY [facility] Administration Dextrose 50 ml 05/26/19 00:23 D50w (25gm) Syringe IV PRN PRN Hypoglycemia Famotidine 20 mg 05/26/19 13:00 05/30/19 11:06 Pepcid PO 20 mg QDAY [facility] Administration Furosemide 20 mg 05/26/19 06:00 05/30/19 06:05 Lasix IV 20 mg 0600,1800 [facility] Administration Piperacillin Sod/Tazobactam Sod 3.375 gm in 50 mls @ 100 mls/hr 05/26/19 14:00 05/30/19 06:13 Zosyn/Ns 3.375gm/50ml IV 05/30/19 13:59 100 mls/hr Q8H [facility] Administration Sodium Chloride 500 mls @ 0 mls/hr 05/30/19 09:30 Nacl 0.9% 500 Ml IV 05/30/19 16:00 ONCE NR As Directed Insulin Human Regular 0 units 05/28/19 07:30 05/29/19 21:59 Humulin R SUB-Q Not Given ACHS [facility] Protocol Metoprolol Tartrate 25 mg 05/26/19 11:00 05/30/19 11:07 Lopressor PO 25 mg BID [facility] Administration Ondansetron HCl 4 mg 05/26/19 00:23 05/27/19 12:04 Zofran IV 4 mg Q8H PRN Administration Nausea And Vomiting Phenol 1 spray 05/27/19 16:30 05/27/19 18:45 Chloraseptic MM 1 spray PRN PRN Administration Sore Throat Sodium Chloride 10 ml 05/26/19 10:00 05/29/19 22:35 Sodium Chloride Flush Syringe 10 Ml IV 10 ml BID [facility] Administration Sodium Chloride 10 ml 05/26/19 00:23 05/26/19 06:15 Sodium Chloride Flush Syringe 10 Ml IV 10 ml PRN PRN Administration LINE FLUSH
--- NOTE | 2019-05-30 13:25 | Progress Note ---
Assessment and Plan Currently stable cardiac status. Pt appears to be nearing/at euvolemia. D/c IV lasix. Cont all other present cardiac management. The patient has been seen in conjunction with Dr. Razia Rodgers who agrees with the assessment and plan of care. 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 in SR. Objective Last Vital Signs Temp 98.0 F 05/30/19 11:47 Pulse 71 05/30/19 11:47 Resp 18 05/30/19 11:47 BP 140/38 05/30/19 11:47 Pulse Ox 100 05/30/19 11:47 - Physical Examination General: No Apparent Distress HEENT: Positive: PERRL, Normocephaly, Mucus Membranes Moist Neck: Positive: neck supple, trachea midline Cardiac: Positive: Reg Rate and Rhythm, S1/S2 Lungs: Positive: Decreased Breath Sounds Neuro: Positive: Grossly Intact Abdomen: Positive: Unremarkable. Negative: Tender /Rectal: Other (deferred) Skin: Positive: Clear. Negative: Rash Musculoskeletal: No Pain Extremities: Present: normal. Absent: edema - Labs and Meds Cardiac Enzymes 05/30/19 Range/Units Unknown AST 7 (5-40) units/L Coagulation 05/30/19 Range/Units Unknown PT 15.9 H (12.2-14.9) Sec. INR 1.30 H (0.87-1.13) APTT 32.1 (24.2-36.6) Sec. CBC 05/30/19 Range/Units Unknown WBC 1.4 L* (4.5-11.0) K/mm3 RBC 2.22 L (3.65-5.03) M/mm3 Hgb 6.9 L (10.1-14.3) gm/dl Hct 20.4 L (30.3-42.9) % Plt Count 7 L* (140-440) K/mm3 Comprehensive Metabolic Panel 05/30/19 Range/Units Unknown Sodium 144 (137-145) mmol/L Potassium 3.5 L (3.6-5.0) mmol/L Chloride 100.8 (98-107) mmol/L Carbon Dioxide 30 (22-30) mmol/L BUN 23 H (7-17) mg/dL Creatinine 1.0 (0.7-1.2) mg/dL Glucose 111 H (65-100) mg/dL Calcium 8.0 L (8.4-10.2) mg/dL AST 7 (5-40) units/L ALT < 5 L (7-56) units/L Alkaline Phosphatase 48 (35-129) units/L Total Protein 6.8 (6.3-8.2) g/dL Albumin 3.8 L (3.9-5) g/dL - Imaging and Cardiology EKG: report reviewed, image reviewed Echo: report reviewed (05/2019: EF 45-50%, LVH, trace MR, [id number] TR, RVSP 49 (mild pulm htn), minimal pericardial effusion. ) - Telemetry EKG Rhythm: Sinus Rhythm - EKG Sinus rhythms and dysrhythmias: sinus rhythm - Allied health notes Allied health notes reviewed: nursing
--- NOTE | 2019-05-30 18:11 | Progress Note ---
Assessment and Plan Patient awake. No acute respiratory distress. Patient on 1.5 L O2 and O2 saturation is 96 %. No complaint of chest pain, SOB, or cough. Afebrile. Patient is pancytopenic. - Patient Problems (1) Chest pain Current Visit: Yes Status: Acute Plan to address problem: Patient reports chest pain improved. (2) Dyspnea Current Visit: Yes Status: Acute Plan to address problem: Patient is on 1.5 L O2. No acute respiratory distress. (3) Neutropenia Current Visit: Yes Status: Acute Plan to address problem: Management as per primary care. (4) Diabetes Current Visit: Yes Status: Chronic Plan to address problem: Management as per primary care. 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 (6) Pancytopenia Current Visit: Yes Status: Chronic Plan to address problem: Management as per primary care. Subjective Date of service: 05/30/19 Principal diagnosis: MDS Interval history: Patient awake. No acute respiratory distress. Patient on 1.5 L O2 and O2 saturation is 96 %. No complaint of chest pain, SOB, or cough. Afebrile. Patient is pancytopenic. Objective Vital Signs - 12hr 05/30/19 05/30/19 05/30/19 07:42 08:07 10:00 Temperature 98.6 F Pulse Rate 64 Pulse Rate [ 65 Bilateral Throughout] Respiratory 18 Rate Respiratory 20 Rate [Bilateral Throughout] Blood Pressure 175/61 O2 Sat by Pulse 99 99 97 Oximetry 05/30/19 05/30/19 05/30/19 11:47 12:00 14:06 Temperature 98.0 F Pulse Rate 71 71 Pulse Rate [ 70 Bilateral Throughout] Respiratory 18 Rate Respiratory 18 Rate [Bilateral Throughout] Blood Pressure 140/38 O2 Sat by Pulse 100 Oximetry 05/30/19 16:31 Temperature 98.0 F Pulse Rate 77 Pulse Rate [ Bilateral Throughout] Respiratory 18 Rate Respiratory Rate [Bilateral Throughout] Blood Pressure 121/34 O2 Sat by Pulse 96 Oximetry Constitutional: no acute distress, alert Eyes: non-icteric ENT: oropharynx moist Neck: supple, no lymphadenopathy, no JVD Effort: mildly labored Ascultation: Bilateral: diminished breath sounds Percussion: Bilateral: not dull Cardiovascular: regular rate and rhythm Gastrointestinal: normoactive bowel sounds, soft, non-tender, non-distended Integumentary: normal Extremities: no cyanosis, no edema, pulses normal, no ischemia or petechiae Neurologic: normal mental status, non-focal exam, pupils equal and round, CN II- XII normal Psychiatric: mood appropriate, affect normal CBC and BMP: 05/30/19 Unknown 05/30/19 Unknown ABG, PT/INR, D-dimer: ABG POC ABG pH 7.456 (7.35-7.45) H 05/25/19 23:07 POC ABG pCO2 36.7 (35-45) 05/25/19 23:07 POC ABG pO2 121 (80-105) H 05/25/19 23:07 POC ABG HCO3 25.9 (22-26 mml/L) 05/25/19 23:07 POC ABG Total CO2 27 (23-27mmol/L) 05/25/19 23:07 POC ABG O2 Sat 99 05/25/19 23:07 PT/INR, D-dimer PT 15.9 Sec. (12.2-14.9) H 05/30/19 Unknown INR 1.30 (0.87-1.13) H 05/30/19 Unknown 609.27 ng/mlDDU (0-234) H 05/25/19 20:15 Abnormal lab findings: Abnormal Labs 05/25/19 05/25/19 05/25/19 20:15 20:15 20:15 WBC 1.1 L* RBC 1.93 L Hgb 6.0 L Hct 18.2 L* RDW 22.6 H Plt Count 48 L Seg Neuts % (Manual) Lymphocytes % (Manual) Monocytes % (Manual) 19.0 H Eosinophils % (Manual) 7.0 H Basophils % (Manual) 3.0 H Nucleated RBC % Seg Neutrophils # Man 0.5 L Lymphocytes # (Manual) 0.3 L PT 18.1 H INR 1.54 H APTT 40.6 H D-Dimer 609.27 H POC ABG pH POC ABG pO2 Potassium BUN 19 H Glucose POC Glucose Calcium 8.3 L Total Bilirubin 1.40 H ALT < 5 L Total Creatine Kinase CK-MB (CK-2) Rel Index C-Reactive Protein NT-Pro-B Natriuret Pep Albumin 3.6 L Crossmatch 05/25/19 05/25/19 05/25/19 20:15 21:43 23:07 WBC RBC Hgb Hct RDW Plt Count Seg Neuts % (Manual) Lymphocytes % (Manual) Monocytes % (Manual) Eosinophils % (Manual) Basophils % (Manual) Nucleated RBC % Seg Neutrophils # Man Lymphocytes # (Manual) PT INR APTT D-Dimer POC ABG pH 7.456 H POC ABG pO2 121 H Potassium BUN Glucose POC Glucose Calcium Total Bilirubin ALT Total Creatine Kinase 17 L CK-MB (CK-2) Rel Index C-Reactive Protein NT-Pro-B Natriuret Pep 5267 H Albumin Crossmatch See Detail 05/26/19 05/26/19 05/26/19 04:50 04:50 06:20 WBC 1.1 L* RBC 2.16 L Hgb 6.6 L Hct 19.7 L* RDW 18.4 H Plt Count 40 L Seg Neuts % (Manual) Lymphocytes % (Manual) Monocytes % (Manual) 10.0 H Eosinophils % (Manual) Basophils % (Manual) Nucleated RBC % 3.0 H Seg Neutrophils # Man 0.6 L Lymphocytes # (Manual) 0.3 L PT INR APTT D-Dimer POC ABG pH POC ABG pO2 Potassium BUN Glucose POC Glucose 122 H Calcium Total Bilirubin ALT Total Creatine Kinase 8 L CK-MB (CK-2) Rel Index 12.5 H C-Reactive Protein NT-Pro-B Natriuret Pep Albumin Crossmatch 05/26/19 05/26/19 05/26/19 08:46 21:44 Unknown WBC RBC Hgb Hct RDW Plt Count Seg Neuts % (Manual) Lymphocytes % (Manual) Monocytes % (Manual) Eosinophils % (Manual) Basophils % (Manual) Nucleated RBC % Seg Neutrophils # Man Lymphocytes # (Manual) PT INR APTT D-Dimer POC ABG pH POC ABG pO2 Potassium BUN Glucose POC Glucose 161 H Calcium Total Bilirubin ALT Total Creatine Kinase < 7 L CK-MB (CK-2) Rel Index C-Reactive Protein 12.60 H NT-Pro-B Natriuret Pep Albumin Crossmatch 05/27/19 05/27/19 05/28/19 02:19 21:27 08:50 WBC RBC Hgb Hct RDW Plt Count Seg Neuts % (Manual) Lymphocytes % (Manual) Monocytes % (Manual) Eosinophils % (Manual) Basophils % (Manual) Nucleated RBC % Seg Neutrophils # Man Lymphocytes # (Manual) PT INR APTT D-Dimer POC ABG pH POC ABG pO2 Potassium BUN 21 H Glucose POC Glucose 126 H 116 H Calcium 7.9 L Total Bilirubin ALT Total Creatine Kinase CK-MB (CK-2) Rel Index C-Reactive Protein NT-Pro-B Natriuret Pep Albumin Crossmatch 05/28/19 05/28/19 05/28/19 09:32 12:26 22:10 WBC 4.0 L RBC 2.17 L Hgb 6.7 L Hct 20.1 L RDW 20.6 H Plt Count 14 L* Seg Neuts % (Manual) 74.0 H Lymphocytes % (Manual) Monocytes % (Manual) Eosinophils % (Manual) Basophils % (Manual) Nucleated RBC % Seg Neutrophils # Man Lymphocytes # (Manual) 0.8 L PT INR APTT D-Dimer POC ABG pH POC ABG pO2 Potassium BUN Glucose POC Glucose 120 H 131 H Calcium Total Bilirubin ALT Total Creatine Kinase CK-MB (CK-2) Rel Index C-Reactive Protein NT-Pro-B Natriuret Pep Albumin Crossmatch 05/29/19 05/29/19 05/29/19 07:49 08:49 11:55 WBC 3.2 L RBC 2.40 L Hgb 7.5 L Hct 22.1 L RDW 18.4 H Plt Count 11 L* Seg Neuts % (Manual) 72.0 H Lymphocytes % (Manual) 10.0 L Monocytes % (Manual) Eosinophils % (Manual) Basophils % (Manual) Nucleated RBC % Seg Neutrophils # Man Lymphocytes # (Manual) 0.3 L PT INR APTT D-Dimer POC ABG pH POC ABG pO2 Potassium BUN Glucose POC Glucose 121 H 106 H Calcium Total Bilirubin ALT Total Creatine Kinase CK-MB (CK-2) Rel Index C-Reactive Protein NT-Pro-B Natriuret Pep Albumin Crossmatch 05/29/19 05/29/19 05/30/19 17:51 20:49 07:53 WBC RBC Hgb Hct RDW Plt Count Seg Neuts % (Manual) Lymphocytes % (Manual) Monocytes % (Manual) Eosinophils % (Manual) Basophils % (Manual) Nucleated RBC % Seg Neutrophils # Man Lymphocytes # (Manual) PT INR APTT D-Dimer POC ABG pH POC ABG pO2 Potassium BUN Glucose POC Glucose 112 H 149 H 115 H Calcium Total Bilirubin ALT Total Creatine Kinase CK-MB (CK-2) Rel Index C-Reactive Protein NT-Pro-B Natriuret Pep Albumin Crossmatch 05/30/19 05/30/19 05/30/19 11:50 16:36 Unknown WBC 1.4 L* RBC 2.22 L Hgb 6.9 L Hct 20.4 L RDW 18.4 H Plt Count 7 L* Seg Neuts % (Manual) Lymphocytes % (Manual) Monocytes % (Manual) Eosinophils % (Manual) 9.0 H Basophils % (Manual) Nucleated RBC % Seg Neutrophils # Man 0.8 L Lymphocytes # (Manual) 0.3 L PT INR APTT D-Dimer POC ABG pH POC ABG pO2 Potassium BUN Glucose POC Glucose 118 H 358 H Calcium Total Bilirubin ALT Total Creatine Kinase CK-MB (CK-2) Rel Index C-Reactive Protein NT-Pro-B Natriuret Pep Albumin Crossmatch 05/30/19 05/30/19 Unknown Unknown WBC RBC Hgb Hct RDW Plt Count Seg Neuts % (Manual) Lymphocytes % (Manual) Monocytes % (Manual) Eosinophils % (Manual) Basophils % (Manual) Nucleated RBC % Seg Neutrophils # Man Lymphocytes # (Manual) PT 15.9 H INR 1.30 H APTT D-Dimer POC ABG pH POC ABG pO2 Potassium 3.5 L BUN 23 H Glucose 111 H POC Glucose Calcium 8.0 L Total Bilirubin ALT < 5 L Total Creatine Kinase CK-MB (CK-2) Rel Index C-Reactive Protein NT-Pro-B Natriuret Pep Albumin 3.8 L Crossmatch Chest x-ray: report reviewed, image reviewed CT scan - chest: report reviewed, image reviewed Additional Studies: CHEST 1 VIEW INDICATION: Dyspnea. COMPARISON: None. FINDINGS: Support devices: None. Heart: Enlarged. Lungs/Pleura: Mild diffuse predominantly interstitial opacities are noted and there are small effusions. IMPRESSION: 1. Probable mild congestive heart failure. CTA CHEST WITH IV CONTRAST INDICATION: cp sob hypoxia. TECHNIQUE: Axial CT images were obtained through the chest after injection of IV contrast. 3 plane MIP reconstructions were produced. All CT scans at this location are performed using CT dose reduction for ALARA by means of automated exposure control. COMPARISON: None available. FINDINGS: Pulmonary Arteries: No pulmonary emboli. Thoracic Aorta: No acute abnormality. Heart: There is mild left atrial enlargement. There is no pericardial effusion. Coronary Arteries: No significant calcification. Lungs: Diffuse increased interstitial markings are noted with subtle bilateral groundglass opacities. There is compressive atelectasis in the dependent lung bases. Pleura: There are small, relatively symmetric bilateral pleural effusions. No pneumothorax. Lymph Nodes: No significant adenopathy. Additional Findings: None. Upper Abdomen: Hepatomegaly is noted. There is marked splenomegaly, this is incompletely evaluated on this exam. Skeletal Structures: No significant osseous abnormality. IMPRESSION: 1. No CT evidence for pulmonary embolism. 2. Diffuse predominantly interstitial pulmonary opacities may be due to interstitial pulmonary edema. There are small effusions. 3. Massive splenomegaly, incompletely evaluated on this exam. There also is enlargement of the liver. Allied health notes reviewed: nursing
[2019-05-30] MEDS: SODIUM CHLORIDE FLUSH SYRINGE 10 ML IV SCH ×2 (20:10→23:18)
[2019-05-31] MEDS: DUONEB *Not for PRN Use IH SCH ×4 (01:58→20:19)
[2019-05-31] MEDS ORDERED: NACL 0.9% 500 ML IV ONE (03:00)
--- NOTE | 2019-05-31 07:13 | Hem/Onc Progress Note ---
Assessment and Plan 1. History of myelodysplastic syndrome, anemia, leukopenia, thrombocytopenia. The patient has received first dose of decitabine in the end of March and received G-CSF after that. 2. Recent hospitalization at [place] and received blood transfusion. 3. Is anemic. Transfusion support. 4. BNP high, shortness of breath, chest pain, seen by Cardiology team. 5. For the low platelet, in case of bleeding, transfusion support. 6. Hypertension history. 7. History of diabetes. 8. G-CSF support. 9. BiPAP for respiratory issues. 10. Antibiotic support. 11. For the myelodysplastic syndrome, she would need at least 4 cycles of chemotherapy to evaluate if there is a response. She would need transfusion support in the interim. transfusion support prn d/w dr Garcia pt requesting port placement low wbc anemia low plt - Patient Problems (1) Neutropenia Current Visit: Yes Status: Acute Subjective Date of service: 05/31/19 Principal diagnosis: MDS Interval history: on BIPAP Objective - Exam Narrative Exam: Pain - none General appearance - breathing better Performance status limited self care Eyes - no icterus, pallor + ENT - no bleeding LNs cervical not palpable Neck - no LN Respiratory Normal Breath sounds - CTA CVS S1 S2 + Extremities finger - bandage General GI Soft Rectal deferred female - deferred Skin warm Musculoskeletal moving extremitites Neurologically awake - oriented - Constitutional Vitals: Last Vital Signs Temp 97.6 F 05/31/19 05:50 Pulse 63 05/31/19 05:50 Resp 18 05/31/19 05:50 BP 134/44 05/31/19 05:50 Pulse Ox 100 05/31/19 05:50 - Labs Lab Results: Laboratory Results - last 24 hr 05/25/19 05/30/19 05/30/19 21:43 07:53 09:00 WBC RBC Hgb Hct MCV MCH MCHC RDW Plt Count Add Manual Diff Total Counted Seg Neuts % (Manual) Band Neutrophils % Lymphocytes % (Manual) Reactive Lymphs % (Man) Monocytes % (Manual) Eosinophils % (Manual) Basophils % (Manual) Metamyelocytes % Myelocytes % Promyelocytes % Blast Cells % Nucleated RBC % Seg Neutrophils # Man Band Neutrophils # Lymphocytes # (Manual) Abs React Lymphs (Man) Monocytes # (Manual) Eosinophils # (Manual) Basophils # (Manual) Metamyelocytes # Myelocytes # Promyelocytes # Blast Cells # WBC Morphology Hypersegmented Neuts Hyposegmented Neuts Hypogranular Neuts Smudge Cells Toxic Granulation Toxic Vacuolation Dohle Bodies Pelger-Huet Anomaly Pao Rods Platelet Estimate Clumped Platelets Plt Clumps, EDTA Large Platelets Giant Platelets Platelet Satelliting Plt Morphology Comment RBC Morphology Dimorphic RBCs Polychromasia Hypochromasia Poikilocytosis Anisocytosis Microcytosis Macrocytosis Spherocytes Pappenheimer Bodies Sickle Cells Target Cells Tear Drop Cells Ovalocytes Helmet Cells [place] Bodies [place] Rings [place] Cells Bite Cells Crenated Cell Elliptocytes Acanthocytes (Spur) Rouleaux Hemoglobin C Crystals Schistocytes Malaria parasites Chung Bodies Hem Pathologist Commnt PT INR APTT Sodium Potassium Chloride Carbon Dioxide Anion Gap BUN Creatinine Estimated GFR BUN/Creatinine Ratio Glucose POC Glucose 115 H Calcium Total Bilirubin AST ALT Alkaline Phosphatase Total Protein Albumin Albumin/Globulin Ratio Blood Type O POSITIVE Crossmatch See Detail 05/30/19 05/30/19 05/30/19 11:50 16:36 21:42 WBC RBC Hgb Hct MCV MCH MCHC RDW Plt Count Add Manual Diff Total Counted Seg Neuts % (Manual) Band Neutrophils % Lymphocytes % (Manual) Reactive Lymphs % (Man) Monocytes % (Manual) Eosinophils % (Manual) Basophils % (Manual) Metamyelocytes % Myelocytes % Promyelocytes % Blast Cells % Nucleated RBC % Seg Neutrophils # Man Band Neutrophils # Lymphocytes # (Manual) Abs React Lymphs (Man) Monocytes # (Manual) Eosinophils # (Manual) Basophils # (Manual) Metamyelocytes # Myelocytes # Promyelocytes # Blast Cells # WBC Morphology Hypersegmented Neuts Hyposegmented Neuts Hypogranular Neuts Smudge Cells Toxic Granulation Toxic Vacuolation Dohle Bodies Pelger-Huet Anomaly Pao Rods Platelet Estimate Clumped Platelets Plt Clumps, EDTA Large Platelets Giant Platelets Platelet Satelliting Plt Morphology Comment RBC Morphology Dimorphic RBCs Polychromasia Hypochromasia Poikilocytosis Anisocytosis Microcytosis Macrocytosis Spherocytes Pappenheimer Bodies Sickle Cells Target Cells Tear Drop Cells Ovalocytes Helmet Cells [place] Bodies [place] Rings [place] Cells Bite Cells Crenated Cell Elliptocytes Acanthocytes (Spur) Rouleaux Hemoglobin C Crystals Schistocytes Malaria parasites Chung Bodies Hem Pathologist Commnt PT INR APTT Sodium Potassium Chloride Carbon Dioxide Anion Gap BUN Creatinine Estimated GFR BUN/Creatinine Ratio Glucose POC Glucose 118 H 358 H 84 Calcium Total Bilirubin AST ALT Alkaline Phosphatase Total Protein Albumin Albumin/Globulin Ratio Blood Type Crossmatch 05/30/19 05/30/19 05/30/19 Unknown Unknown Unknown WBC 1.4 L* RBC 2.22 L Hgb 6.9 L Hct 20.4 L MCV 92 MCH 31 MCHC 34 RDW 18.4 H Plt Count 7 L* Add Manual Diff Complete Total Counted 100 Seg Neuts % (Manual) 57.0 Band Neutrophils % 11.0 Lymphocytes % (Manual) 19.0 Reactive Lymphs % (Man) 0 Monocytes % (Manual) 3.0 Eosinophils % (Manual) 9.0 H Basophils % (Manual) 0 Metamyelocytes % 1.0 Myelocytes % 0 Promyelocytes % 0 Blast Cells % 0 Nucleated RBC % Not Reportable Seg Neutrophils # Man 0.8 L Band Neutrophils # 0.2 Lymphocytes # (Manual) 0.3 L Abs React Lymphs (Man) 0.0 Monocytes # (Manual) 0.0 Eosinophils # (Manual) 0.1 Basophils # (Manual) 0.0 Metamyelocytes # 0.0 Myelocytes # 0.0 Promyelocytes # 0.0 Blast Cells # 0.0 WBC Morphology Not Reportable Hypersegmented Neuts Not Reportable Hyposegmented Neuts Not Reportable Hypogranular Neuts Not Reportable Smudge Cells Not Reportable Toxic Granulation Not Reportable Toxic Vacuolation Not Reportable Dohle Bodies Not Reportable Pelger-Huet Anomaly Not Reportable Pao Rods Not Reportable Platelet Estimate Consistent w auto Clumped Platelets Not Reportable Plt Clumps, EDTA Not Reportable Large Platelets Not Reportable Giant Platelets Not Reportable Platelet Satelliting Not Reportable Plt Morphology Comment Not Reportable RBC Morphology Not Reportable Dimorphic RBCs Not Reportable Polychromasia Not Reportable Hypochromasia 1+ Poikilocytosis Not Reportable Anisocytosis Not Reportable Microcytosis Not Reportable Macrocytosis Not Reportable Spherocytes Not Reportable Pappenheimer Bodies Not Reportable Sickle Cells Not Reportable Target Cells Not Reportable Tear Drop Cells Not Reportable Ovalocytes Not Reportable Helmet Cells Not Reportable [place] Bodies Not Reportable [place] Rings Not Reportable Manuel Cells Not Reportable Bite Cells Not Reportable Crenated Cell Not Reportable Elliptocytes Not Reportable Acanthocytes (Spur) Not Reportable Rouleaux Not Reportable Hemoglobin C Crystals Not Reportable Schistocytes Not Reportable Malaria parasites Not Reportable Chung Bodies Not Reportable Hem Pathologist Commnt No PT 15.9 H INR 1.30 H APTT 32.1 Sodium 144 Potassium 3.5 L Chloride 100.8 Carbon Dioxide 30 Anion Gap 17 BUN 23 H Creatinine 1.0 Estimated GFR > 60 BUN/Creatinine Ratio 23 Glucose 111 H POC Glucose Calcium 8.0 L Total Bilirubin 1.10 AST 7 ALT < 5 L Alkaline Phosphatase 48 Total Protein 6.8 Albumin 3.8 L Albumin/Globulin Ratio 1.3 Blood Type Crossmatch Medications & Allergies - Medications Allergies/Adverse Reactions: Allergies No Known Allergies Allergy (Verified 05/25/19 20:14) Home Medications: Home Medications Medication Instructions Recorded Confirmed Last Taken Type Acetaminophen [Acetaminophen TAB] 500 mg PO Q6HR 05/26/19 05/26/19 Unknown History Venlafaxine [Effexor] 75 mg PO BID 05/26/19 05/26/19 Unknown History Amlodipine Besylate [Norvasc] 5 mg PO DAILY #30 tablet 05/28/19 Unknown Rx HYDROcodone/APAP 5-325 [[place] 1 each PO Q6HR PRN #10 tablet 05/28/19 Unknown Rx 5-325 mg TAB] Loratadine [Claritin] 10 mg PO DAILY #30 tablet 05/28/19 Unknown Rx Metformin HCl [metFORMIN] 1,000 mg PO BID #60 tablet 05/28/19 Unknown Rx Metoprolol [Lopressor TAB] 25 mg PO BID #60 tablet 05/28/19 Unknown Rx Polyethylene Glycol 3350 [Miralax 17 gm PO QDAY #30 powd.pack 05/28/19 Unknown Rx 3350] Active Medications: Generic Name Dose Route Start Last Admin Trade Name Freq PRN Reason Stop Dose Admin Acetaminophen 650 mg 05/26/19 00:23 05/29/19 19:44 Tylenol PO 650 mg Q4H PRN Administration Pain MILD(1-3)/Fever >100.5/COLUNGA Acetaminophen/Hydrocodone Bitart 1 each 05/28/19 05:30 05/28/19 23:22 [place] 5/325 PO 1 each Q6H PRN Administration Pain, Moderate (4-6) Albuterol/Ipratropium 1 ampul 05/26/19 02:00 05/31/19 01:58 Duoneb *Not For Prn Use* IH 1 ampul Q6HRT XOCHITL Administration Amlodipine Besylate 5 mg 05/26/19 11:00 05/30/19 11:06 Norvasc PO 5 mg DAILY XOCHITL Administration Dextrose 50 ml 05/26/19 00:23 D50w (25gm) Syringe IV PRN PRN Hypoglycemia Famotidine 20 mg 05/26/19 13:00 05/30/19 11:06 Pepcid PO 20 mg QDAY XOCHITL Administration Insulin Human Regular 0 units 05/28/19 07:30 05/30/19 23:17 Humulin R SUB-Q Not Given ACHS COUNT INCLUDES THE [facility] Protocol Metoprolol Tartrate 25 mg 05/26/19 11:00 05/30/19 23:17 Lopressor PO 25 mg BID XOCHITL Administration Ondansetron HCl 4 mg 05/26/19 00:23 05/27/19 12:04 Zofran IV 4 mg Q8H PRN Administration Nausea And Vomiting Phenol 1 spray 05/27/19 16:30 05/27/19 18:45 Chloraseptic MM 1 spray PRN PRN Administration Sore Throat Sodium Chloride 10 ml 05/26/19 10:00 05/30/19 23:18 Sodium Chloride Flush Syringe 10 Ml IV 10 ml BID XOCHITL Administration Sodium Chloride 10 ml 05/26/19 00:23 05/26/19 06:15 Sodium Chloride Flush Syringe 10 Ml IV 10 ml PRN PRN Administration LINE FLUSH
[2019-05-31] MEDS: HumuLIN R SUB-Q SCH ×4 (08:52→22:24)
[2019-05-31 09:01] LABS: Hematocrit 20.9 % (30.3-42.9); Mean Corpuscular HGB Conc 33 % (30-34); Mean Corpuscular Volume 92 fl (79-97); Red Blood Count 2.27 M/mm3 (3.65-5.03); Red Cell Distribution Width 18.4 % (13.2-15.2)
[2019-05-31 09:12] LABS: Platelet Count 12 K/mm3 (140-440)
--- NOTE | 2019-05-31 10:42 | Event Note ---
Date: 05/31/19 Pt tentatively scheduled for this at 1:30pm. If platelets unable to reach 50 by then, will have to reschedule. Please call with questions.
[2019-05-31] MEDS: LOPRESSOR PO SCH ×2 (10:45→22:29)
[2019-05-31] MEDS: NORVASC PO SCH (10:46)
[2019-05-31] MEDS: PEPCID PO SCH (10:48)
--- NOTE | 2019-05-31 13:13 | Progress Note ---
Assessment and Plan Currently stable cardiac status. Cont present cardiac management. Pt may discharge home from cardiology standpoint. Recommend follow up in our office with Dr. Faria within 3-5 days of hospital discharge ([phone]). The patient has been seen in conjunction with Dr. Razia Rodgers who agrees with the assessment and plan of care. 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 in SR. Objective Last Vital Signs Temp 97.9 F 05/31/19 08:14 Pulse 68 05/31/19 08:49 Resp 18 05/31/19 08:49 BP 136/47 05/31/19 08:14 Pulse Ox 100 05/31/19 08:51 - Physical Examination General: No Apparent Distress HEENT: Positive: PERRL, Normocephaly, Mucus Membranes Moist Neck: Positive: neck supple, trachea midline Cardiac: Positive: Reg Rate and Rhythm, S1/S2 Lungs: Positive: Decreased Breath Sounds Neuro: Positive: Grossly Intact Abdomen: Positive: Unremarkable. Negative: Tender /Rectal: Other (deferred) Skin: Positive: Clear. Negative: Rash Musculoskeletal: No Pain Extremities: Present: normal. Absent: edema - Labs and Meds CBC 05/31/19 Range/Units 08:26 WBC 0.9 L* (4.5-11.0) K/mm3 RBC 2.27 L (3.65-5.03) M/mm3 Hgb 7.0 L (10.1-14.3) gm/dl Hct 20.9 L (30.3-42.9) % Plt Count 12 L* (140-440) K/mm3 - Imaging and Cardiology EKG: report reviewed, image reviewed Echo: report reviewed (05/2019: EF 45-50%, LVH, trace MR, [id number] TR, RVSP 49 (mild pulm htn), minimal pericardial effusion. ) - Telemetry EKG Rhythm: Sinus Rhythm - EKG Sinus rhythms and dysrhythmias: sinus rhythm - Allied health notes Allied health notes reviewed: nursing
[2019-05-31 13:17] LABS: Total Cells Counted 100
[2019-05-31 13:24] LABS: Hypochromasia 1+; Platelet Estimate Consistent w Auto
--- NOTE | 2019-05-31 14:06 | Progress Note ---
Assessment and Plan Patient awake. No acute respiratory distress. Patient on 1.5 L O2 and O2 saturation is 98 %. No complaint of chest pain, SOB, or cough. Afebrile. Patient is pancytopenic. - Patient Problems (1) Chest pain Current Visit: Yes Status: Resolved Plan to address problem: Patient reports chest pain improved. (2) Dyspnea Current Visit: Yes Status: Acute Plan to address problem: Patient is on 1.5 L O2. No acute respiratory distress. (3) Neutropenia Current Visit: Yes Status: Acute Plan to address problem: Management as per primary care. (4) Diabetes Current Visit: Yes Status: Chronic Plan to address problem: Management as per primary care. 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 (6) Pancytopenia Current Visit: Yes Status: Chronic Plan to address problem: Management as per primary care. Subjective Date of service: 05/31/19 Principal diagnosis: MDS Interval history: Patient awake. No acute respiratory distress. Patient on 1.5 L O2 and O2 saturation is 98 %. No complaint of chest pain, SOB, or cough. Afebrile. Patient is pancytopenic. Objective Vital Signs - 12hr 05/31/19 05/31/19 05/31/19 02:09 03:08 03:35 Temperature 98.5 F 98.5 F Pulse Rate 63 63 Pulse Rate [ 73 Bilateral Throughout] Respiratory 18 18 Rate Respiratory 16 Rate [Bilateral Throughout] Blood Pressure 137/52 137/52 O2 Sat by Pulse 100 100 Oximetry 05/31/19 05/31/19 05/31/19 03:50 04:20 04:50 Temperature 97.6 F 97.6 F 97.6 F Pulse Rate 62 62 65 Pulse Rate [ Bilateral Throughout] Respiratory 18 18 18 Rate Respiratory Rate [Bilateral Throughout] Blood Pressure 139/57 137/51 146/52 O2 Sat by Pulse 100 100 100 Oximetry 05/31/19 05/31/19 05/31/19 05:20 05:50 08:14 Temperature 97.5 F L 97.6 F 97.9 F Pulse Rate 64 63 64 Pulse Rate [ Bilateral Throughout] Respiratory 18 18 18 Rate Respiratory Rate [Bilateral Throughout] Blood Pressure 132/37 134/44 136/47 O2 Sat by Pulse 97 100 100 Oximetry 05/31/19 05/31/19 08:49 08:51 Temperature Pulse Rate Pulse Rate [ 68 Bilateral Throughout] Respiratory Rate Respiratory 18 Rate [Bilateral Throughout] Blood Pressure O2 Sat by Pulse 100 Oximetry Constitutional: no acute distress, alert Eyes: non-icteric ENT: oropharynx moist Neck: supple, no lymphadenopathy, no JVD Effort: mildly labored Ascultation: Bilateral: diminished breath sounds, rhonchi Percussion: Bilateral: not dull Cardiovascular: regular rate and rhythm Gastrointestinal: normoactive bowel sounds, soft, non-tender, non-distended Integumentary: normal Extremities: no cyanosis, no edema, pulses normal, no ischemia or petechiae Neurologic: normal mental status, non-focal exam, pupils equal and round, CN II- XII normal Psychiatric: mood appropriate, affect normal CBC and BMP: 05/31/19 08:26 05/30/19 Unknown ABG, PT/INR, D-dimer: ABG POC ABG pH 7.456 (7.35-7.45) H 05/25/19 23:07 POC ABG pCO2 36.7 (35-45) 05/25/19 23:07 POC ABG pO2 121 (80-105) H 05/25/19 23:07 POC ABG HCO3 25.9 (22-26 mml/L) 05/25/19 23:07 POC ABG Total CO2 27 (23-27mmol/L) 05/25/19 23:07 POC ABG O2 Sat 99 05/25/19 23:07 PT/INR, D-dimer PT 15.9 Sec. (12.2-14.9) H 05/30/19 Unknown INR 1.30 (0.87-1.13) H 05/30/19 Unknown 609.27 ng/mlDDU (0-234) H 05/25/19 20:15 Abnormal lab findings: Abnormal Labs 05/25/19 05/25/19 05/25/19 20:15 20:15 20:15 WBC 1.1 L* RBC 1.93 L Hgb 6.0 L Hct 18.2 L* RDW 22.6 H Plt Count 48 L Seg Neuts % (Manual) Lymphocytes % (Manual) Monocytes % (Manual) 19.0 H Eosinophils % (Manual) 7.0 H Basophils % (Manual) 3.0 H Nucleated RBC % Seg Neutrophils # Man 0.5 L Lymphocytes # (Manual) 0.3 L PT 18.1 H INR 1.54 H APTT 40.6 H D-Dimer 609.27 H POC ABG pH POC ABG pO2 Potassium BUN 19 H Glucose POC Glucose Calcium 8.3 L Total Bilirubin 1.40 H ALT < 5 L Total Creatine Kinase CK-MB (CK-2) Rel Index C-Reactive Protein NT-Pro-B Natriuret Pep Albumin 3.6 L Crossmatch 05/25/19 05/25/19 05/25/19 20:15 21:43 23:07 WBC RBC Hgb Hct RDW Plt Count Seg Neuts % (Manual) Lymphocytes % (Manual) Monocytes % (Manual) Eosinophils % (Manual) Basophils % (Manual) Nucleated RBC % Seg Neutrophils # Man Lymphocytes # (Manual) PT INR APTT D-Dimer POC ABG pH 7.456 H POC ABG pO2 121 H Potassium BUN Glucose POC Glucose Calcium Total Bilirubin ALT Total Creatine Kinase 17 L CK-MB (CK-2) Rel Index C-Reactive Protein NT-Pro-B Natriuret Pep 5267 H Albumin Crossmatch See Detail 05/26/19 05/26/19 05/26/19 04:50 04:50 06:20 WBC 1.1 L* RBC 2.16 L Hgb 6.6 L Hct 19.7 L* RDW 18.4 H Plt Count 40 L Seg Neuts % (Manual) Lymphocytes % (Manual) Monocytes % (Manual) 10.0 H Eosinophils % (Manual) Basophils % (Manual) Nucleated RBC % 3.0 H Seg Neutrophils # Man 0.6 L Lymphocytes # (Manual) 0.3 L PT INR APTT D-Dimer POC ABG pH POC ABG pO2 Potassium BUN Glucose POC Glucose 122 H Calcium Total Bilirubin ALT Total Creatine Kinase 8 L CK-MB (CK-2) Rel Index 12.5 H C-Reactive Protein NT-Pro-B Natriuret Pep Albumin Crossmatch 05/26/19 05/26/19 05/26/19 08:46 21:44 Unknown WBC RBC Hgb Hct RDW Plt Count Seg Neuts % (Manual) Lymphocytes % (Manual) Monocytes % (Manual) Eosinophils % (Manual) Basophils % (Manual) Nucleated RBC % Seg Neutrophils # Man Lymphocytes # (Manual) PT INR APTT D-Dimer POC ABG pH POC ABG pO2 Potassium BUN Glucose POC Glucose 161 H Calcium Total Bilirubin ALT Total Creatine Kinase < 7 L CK-MB (CK-2) Rel Index C-Reactive Protein 12.60 H NT-Pro-B Natriuret Pep Albumin Crossmatch 05/27/19 05/27/19 05/28/19 02:19 21:27 08:50 WBC RBC Hgb Hct RDW Plt Count Seg Neuts % (Manual) Lymphocytes % (Manual) Monocytes % (Manual) Eosinophils % (Manual) Basophils % (Manual) Nucleated RBC % Seg Neutrophils # Man Lymphocytes # (Manual) PT INR APTT D-Dimer POC ABG pH POC ABG pO2 Potassium BUN 21 H Glucose POC Glucose 126 H 116 H Calcium 7.9 L Total Bilirubin ALT Total Creatine Kinase CK-MB (CK-2) Rel Index C-Reactive Protein NT-Pro-B Natriuret Pep Albumin Crossmatch 05/28/19 05/28/19 05/28/19 09:32 12:26 22:10 WBC 4.0 L RBC 2.17 L Hgb 6.7 L Hct 20.1 L RDW 20.6 H Plt Count 14 L* Seg Neuts % (Manual) 74.0 H Lymphocytes % (Manual) Monocytes % (Manual) Eosinophils % (Manual) Basophils % (Manual) Nucleated RBC % Seg Neutrophils # Man Lymphocytes # (Manual) 0.8 L PT INR APTT D-Dimer POC ABG pH POC ABG pO2 Potassium BUN Glucose POC Glucose 120 H 131 H Calcium Total Bilirubin ALT Total Creatine Kinase CK-MB (CK-2) Rel Index C-Reactive Protein NT-Pro-B Natriuret Pep Albumin Crossmatch 05/29/19 05/29/19 05/29/19 07:49 08:49 11:55 WBC 3.2 L RBC 2.40 L Hgb 7.5 L Hct 22.1 L RDW 18.4 H Plt Count 11 L* Seg Neuts % (Manual) 72.0 H Lymphocytes % (Manual) 10.0 L Monocytes % (Manual) Eosinophils % (Manual) Basophils % (Manual) Nucleated RBC % Seg Neutrophils # Man Lymphocytes # (Manual) 0.3 L PT INR APTT D-Dimer POC ABG pH POC ABG pO2 Potassium BUN Glucose POC Glucose 121 H 106 H Calcium Total Bilirubin ALT Total Creatine Kinase CK-MB (CK-2) Rel Index C-Reactive Protein NT-Pro-B Natriuret Pep Albumin Crossmatch 05/29/19 05/29/19 05/30/19 17:51 20:49 07:53 WBC RBC Hgb Hct RDW Plt Count Seg Neuts % (Manual) Lymphocytes % (Manual) Monocytes % (Manual) Eosinophils % (Manual) Basophils % (Manual) Nucleated RBC % Seg Neutrophils # Man Lymphocytes # (Manual) PT INR APTT D-Dimer POC ABG pH POC ABG pO2 Potassium BUN Glucose POC Glucose 112 H 149 H 115 H Calcium Total Bilirubin ALT Total Creatine Kinase CK-MB (CK-2) Rel Index C-Reactive Protein NT-Pro-B Natriuret Pep Albumin Crossmatch 05/30/19 05/30/19 05/30/19 11:50 16:36 Unknown WBC 1.4 L* RBC 2.22 L Hgb 6.9 L Hct 20.4 L RDW 18.4 H Plt Count 7 L* Seg Neuts % (Manual) Lymphocytes % (Manual) Monocytes % (Manual) Eosinophils % (Manual) 9.0 H Basophils % (Manual) Nucleated RBC % Seg Neutrophils # Man 0.8 L Lymphocytes # (Manual) 0.3 L PT INR APTT D-Dimer POC ABG pH POC ABG pO2 Potassium BUN Glucose POC Glucose 118 H 358 H Calcium Total Bilirubin ALT Total Creatine Kinase CK-MB (CK-2) Rel Index C-Reactive Protein NT-Pro-B Natriuret Pep Albumin Crossmatch 05/30/19 05/30/19 05/31/19 Unknown Unknown 08:19 WBC RBC Hgb Hct RDW Plt Count Seg Neuts % (Manual) Lymphocytes % (Manual) Monocytes % (Manual) Eosinophils % (Manual) Basophils % (Manual) Nucleated RBC % Seg Neutrophils # Man Lymphocytes # (Manual) PT 15.9 H INR 1.30 H APTT D-Dimer POC ABG pH POC ABG pO2 Potassium 3.5 L BUN 23 H Glucose 111 H POC Glucose 107 H Calcium 8.0 L Total Bilirubin ALT < 5 L Total Creatine Kinase CK-MB (CK-2) Rel Index C-Reactive Protein NT-Pro-B Natriuret Pep Albumin 3.8 L Crossmatch 05/31/19 08:26 WBC 0.9 L* RBC 2.27 L Hgb 7.0 L Hct 20.9 L RDW 18.4 H Plt Count 12 L* Seg Neuts % (Manual) 32.0 L Lymphocytes % (Manual) Monocytes % (Manual) Eosinophils % (Manual) 25.0 H Basophils % (Manual) Nucleated RBC % Seg Neutrophils # Man 0.3 L Lymphocytes # (Manual) 0.3 L PT INR APTT D-Dimer POC ABG pH POC ABG pO2 Potassium BUN Glucose POC Glucose Calcium Total Bilirubin ALT Total Creatine Kinase CK-MB (CK-2) Rel Index C-Reactive Protein NT-Pro-B Natriuret Pep Albumin Crossmatch Allied health notes reviewed: nursing
--- NOTE | 2019-05-31 15:54 | Progress Note ---
Assessment and Plan Assessment and plan: MDS. Pt with Pancytopenia/anemia--PRBCs and platelets have been given on 2 separate occasions. Patient still with anemia and thrombocytopenia. Transfused with platelet and PRBC. Heme/Onc following Surgery was consulted for port cath and said will do once plt>50K. Acute hypoxic resp failure. Resolved. Etiology sec to HF and pulm htn Elevated DDimer - chest CTA negative for PE. Acute HFpEF. Continue IV lasix BID. Echocardiogram revealed mild concentric left ventricular hypertrophy with EF of 45-50%. Left ventricular systolic function was mildly decreased. Patient with mild pulmonary hypertension. Cardiology following. Accelerated HTN. Optimize BPs - with norvasc and lopressor. DM II. Accucheks ac and hs. SSRI Disposition; possible DC tomorrow History Interval history: Patient was seen and evaluated this morning, patient is on 1.5 L intranasal oxygen. Hospitalist Physical - Physical exam Narrative exam: Not in cardiopulmonary distress. The patient appeared well nourished and normally developed. Vital signs as documented. Head exam is unremarkable. No scleral icterus . Neck is without jugular venous distension, thyromegaly, or carotid bruits. Lungs are clear to auscultation. Cardiac exam reveals regular rate and Rhythm. Abdominal exam reveals normal bowel sounds, no masses, no organomegaly and no aortic enlargement. Extremities are nonedematous and both femoral and pedal pulses are normal. TREASURY ACCOUNTANT: Alert and oriented 3. No focal weakness. - Constitutional Vitals: Temp Pulse Resp BP Pulse Ox 97.9 F 74 16 136/47 100 05/31/19 08:14 05/31/19 14:18 05/31/19 14:18 05/31/19 08:14 05/31/19 08:51 General appearance: Present: no acute distress, well-nourished Results - Labs CBC & Chem 7: 05/31/19 08:26 05/30/19 Unknown Labs: Laboratory Last Values WBC 0.9 K/mm3 (4.5-11.0) L* 05/31/19 08:26 RBC 2.27 M/mm3 (3.65-5.03) L 05/31/19 08:26 Hgb 7.0 gm/dl (10.1-14.3) L 05/31/19 08:26 Hct 20.9 % (30.3-42.9) L 05/31/19 08:26 MCV 92 fl (79-97) 05/31/19 08:26 MCH 31 pg (28-32) 05/31/19 08:26 MCHC 33 % (30-34) 05/31/19 08:26 RDW 18.4 % (13.2-15.2) H 05/31/19 08:26 Plt Count 12 K/mm3 (140-440) L* 05/31/19 08:26 Gordon % (Auto) Independent Beauty Consultant 05/26/19 04:50 Eos % (Auto) Independent Beauty Consultant 05/31/19 08:26 Baso % (Auto) Independent Beauty Consultant 05/25/19 20:15 Add Manual Diff Complete 05/31/19 08:26 Total Counted 100 05/31/19 08:26 Seg Neuts % (Manual) 32.0 % (40.0-70.0) L 05/31/19 08:26 0 % 05/31/19 08:26 34.0 % (13.4-35.0) 05/31/19 08:26 Reactive Lymphs % (Man) 0 % 05/31/19 08:26 6.0 % (0.0-7.3) 05/31/19 08:26 25.0 % (0.0-4.3) H 05/31/19 08:26 1.0 % (0.0-1.8) 05/31/19 08:26 2.0 % 05/31/19 08:26 0 % 05/31/19 08:26 0 % 05/31/19 08:26 0 % 05/31/19 08:26 Nucleated RBC % Not Reportable 05/31/19 08:26 Seg Neutrophils # Man 0.3 K/mm3 (1.8-7.7) L 05/31/19 08:26 Band Neutrophils # 0.0 K/mm3 05/31/19 08:26 0.3 K/mm3 (1.2-5.4) L 05/31/19 08:26 Abs React Lymphs (Man) 0.0 K/mm3 05/31/19 08:26 0.1 K/mm3 (0.0-0.8) 05/31/19 08:26 0.2 K/mm3 (0.0-0.4) 05/31/19 08:26 0.0 K/mm3 (0.0-0.1) 05/31/19 08:26 0.0 K/mm3 05/31/19 08:26 0.0 K/mm3 05/31/19 08:26 0.0 K/mm3 05/31/19 08:26 Blast Cells # 0.0 K/mm3 05/31/19 08:26 WBC Morphology Not Reportable 05/31/19 08:26 Hypersegmented Neuts Not Reportable 05/31/19 08:26 Hyposegmented Neuts Not Reportable 05/31/19 08:26 Hypogranular Neuts Not Reportable 05/31/19 08:26 Not Reportable 05/31/19 08:26 Not Reportable 05/31/19 08:26 Not Reportable 05/31/19 08:26 Not Reportable 05/31/19 08:26 Not Reportable 05/31/19 08:26 Not Reportable 05/31/19 08:26 Consistent w auto 05/31/19 08:26 Not Reportable 05/31/19 08:26 Plt Clumps, EDTA Not Reportable 05/31/19 08:26 Not Reportable 05/31/19 08:26 Not Reportable 05/31/19 08:26 Not Reportable 05/31/19 08:26 Plt Morphology Comment Not Reportable 05/31/19 08:26 RBC Morphology Not Reportable 05/31/19 08:26 Dimorphic RBCs Not Reportable 05/31/19 08:26 Not Reportable 05/31/19 08:26 1+ 05/31/19 08:26 Not Reportable 05/31/19 08:26 Not Reportable 05/31/19 08:26 Not Reportable 05/31/19 08:26 Not Reportable 05/31/19 08:26 Not Reportable 05/31/19 08:26 Not Reportable 05/31/19 08:26 Not Reportable 05/31/19 08:26 Not Reportable 05/31/19 08:26 Not Reportable 05/31/19 08:26 Not Reportable 05/31/19 08:26 Not Reportable 05/31/19 08:26 Not Reportable 05/31/19 08:26 Not Reportable 05/31/19 08:26 Not Reportable 05/31/19 08:26 Not Reportable 05/31/19 08:26 Not Reportable 05/31/19 08:26 Not Reportable 05/31/19 08:26 Acanthocytes (Spur) Not Reportable 05/31/19 08:26 Rouleaux Not Reportable 05/31/19 08:26 Not Reportable 05/31/19 08:26 Not Reportable 05/31/19 08:26 Not Reportable 05/31/19 08:26 Not Reportable 05/31/19 08:26 Hem Pathologist Commnt No 05/31/19 08:26 PT 15.9 Sec. (12.2-14.9) H 05/30/19 Unknown INR 1.30 (0.87-1.13) H 05/30/19 Unknown APTT 32.1 Sec. (24.2-36.6) 05/30/19 Unknown 609.27 ng/mlDDU (0-234) H 05/25/19 20:15 POC ABG pH 7.456 (7.35-7.45) H 05/25/19 23:07 POC ABG pCO2 36.7 (35-45) 05/25/19 23:07 POC ABG pO2 121 (80-105) H 05/25/19 23:07 POC ABG HCO3 25.9 (22-26 mml/L) 05/25/19 23:07 POC ABG Total CO2 27 (23-27mmol/L) 05/25/19 23:07 POC ABG O2 Sat 99 05/25/19 23:07 POC ABG Base Excess 2 ((-2) - (+3)mmol/L) 05/25/19 23:07 40 % 05/25/19 23:07 Sodium 144 mmol/L (137-145) 05/30/19 Unknown Potassium 3.5 mmol/L (3.6-5.0) L 05/30/19 Unknown Chloride 100.8 mmol/L (98-107) 05/30/19 Unknown Carbon Dioxide 30 mmol/L (22-30) 05/30/19 Unknown 17 mmol/L 05/30/19 Unknown BUN 23 mg/dL (7-17) H 05/30/19 Unknown 1.0 mg/dL (0.7-1.2) 05/30/19 Unknown Estimated GFR > 60 ml/min 05/30/19 Unknown 23 % 05/30/19 Unknown Glucose 111 mg/dL (65-100) H 05/30/19 Unknown POC Glucose 107 (70-105) H 05/31/19 08:19 Lactic Acid 1.10 mmol/L (0.7-2.0) 05/25/19 21:43 Calcium 8.0 mg/dL (8.4-10.2) L 05/30/19 Unknown Magnesium 2.10 mg/dL (1.7-2.3) 05/25/19 20:15 1.10 mg/dL (0.1-1.2) 05/30/19 Unknown AST 7 units/L (5-40) 05/30/19 Unknown ALT < 5 units/L (7-56) L 05/30/19 Unknown 48 units/L (35-129) 05/30/19 Unknown < 7 units/L (30-135) L 05/26/19 08:46 CK-MB (CK-2) < 1.0 ng/mL (0.0-4.0) 05/26/19 08:46 CK-MB (CK-2) Rel Index 0.0 (0-4) 05/26/19 08:46 < 0.010 ng/mL (0.00-0.029) 05/26/19 08:46 12.60 mg/dL (0.00-1.30) H 05/26/19 Unknown NT-Pro-B Natriuret Pep 5267 pg/mL (0-900) H 05/25/19 20:15 6.8 g/dL (6.3-8.2) 05/30/19 Unknown 3.8 g/dL (3.9-5) L 05/30/19 Unknown 1.3 % 05/30/19 Unknown TSH 1.200 mlU/mL (0.270-4.200) 05/25/19 20:15 Blood Type O POSITIVE 05/30/19 09:00 Antibody Screen Negative 05/25/19 21:43 Crossmatch See Detail 05/25/19 21:43 Active Medications - Current Medications Current Medications: Generic Name Dose Route Start Last Admin Trade Name Freq PRN Reason Stop Dose Admin Acetaminophen 650 mg 05/26/19 00:23 05/29/19 19:44 Tylenol PO 650 mg Q4H PRN Administration Pain MILD(1-3)/Fever >100.5/COL[place] Acetaminophen/Hydrocodone Bitart 1 each 05/28/19 05:30 05/28/19 23:22 [place] 5/325 PO 1 each Q6H PRN Administration Pain, Moderate (4-6) Albuterol/Ipratropium 1 ampul 05/26/19 02:00 05/31/19 14:14 Duoneb *Not For Prn Use* IH 1 ampul Q6HRT XOCHITL Administration Amlodipine Besylate 5 mg 05/26/19 11:00 05/31/19 10:46 Norvasc PO 5 mg DAILY XOCHITL Administration Dextrose 50 ml 05/26/19 00:23 D50w (25gm) Syringe IV PRN PRN Hypoglycemia Famotidine 20 mg 05/26/19 13:00 05/31/19 10:48 Pepcid PO 20 mg QDAY XOCHITL Administration Cefazolin Sodium 2 gm in 20 mls @ 40 mls/hr 06/02/19 10:43 Ancef/Sterile Water 2 Gm/20 Ml IV 06/02/19 23:00 PREOP [facility] Protocol Insulin Human Regular 0 units 05/28/19 07:30 05/30/19 23:17 Humulin R SUB-Q Not Given ACHS [facility] Protocol Metoprolol Tartrate 25 mg 05/26/19 11:00 05/31/19 10:45 Lopressor PO 25 mg BID XOCHITL Administration Ondansetron HCl 4 mg 05/26/19 00:23 05/27/19 12:04 Zofran IV 4 mg Q8H PRN Administration Nausea And Vomiting Phenol 1 spray 05/27/19 16:30 05/27/19 18:45 Chloraseptic MM 1 spray PRN PRN Administration Sore Throat Sodium Chloride 10 ml 05/26/19 10:00 05/30/19 23:18 Sodium Chloride Flush Syringe 10 Ml IV 10 ml BID XOCHITL Administration Sodium Chloride 10 ml 05/26/19 00:23 05/26/19 06:15 Sodium Chloride Flush Syringe 10 Ml IV 10 ml PRN PRN Administration LINE FLUSH
[2019-05-31] MEDS: SODIUM CHLORIDE FLUSH SYRINGE 10 ML IV SCH ×2 (19:34→22:30)
[2019-06-01] MEDS: DUONEB *Not for PRN Use IH SCH ×4 (03:23→21:45)
--- NOTE | 2019-06-01 07:07 | Hem/Onc Progress Note ---
Assessment and Plan 1. History of myelodysplastic syndrome, anemia, leukopenia, thrombocytopenia. The patient has received first dose of decitabine in the end of March and received G-CSF after that. 2. Recent hospitalization at [place] and received blood transfusion. 3. h/o anemic. Transfusion support. 4. BNP high, shortness of breath, chest pain, seen by Cardiology team. 5. For the low platelet, in case of bleeding, transfusion support. 6. Hypertension history. 7. History of diabetes. 8. G-CSF support. 9. BiPAP for respiratory issues. 10. Antibiotic support. 11. For the myelodysplastic syndrome, she would need at least 4 cycles of chemotherapy to evaluate if there is a response. She would need transfusion support in the interim. low wbc anemia low plt 06/01 sx team planning port on if plt 50 will transfuse 2 units plt on 06/02 in AM - check plt around 7-8 AM and if plt still low give 3rd unit sx due at 1.30 PM on if plt less - this will be rescheduled - Patient Problems (1) Neutropenia Current Visit: Yes Status: Acute Subjective Date of service: 06/01/19 Principal diagnosis: MDS Interval history: d/w dr Irwin- pt on reverse isolation only due port placement on Objective - Exam Narrative Exam: Pain - none General appearance - breathing better Performance status limited self care Eyes - no icterus, pallor + ENT - no bleeding LNs cervical not palpable Neck - no LN Respiratory Normal Breath sounds - CTA CVS S1 S2 + Extremities finger - bandage General GI Soft Rectal deferred female - deferred Skin warm Musculoskeletal moving extremitites Neurologically awake - oriented - Constitutional Vitals: Last Vital Signs Temp 97.9 F 06/01/19 04:28 Pulse 67 06/01/19 04:28 Resp 18 06/01/19 04:28 BP 144/36 06/01/19 04:28 Pulse Ox 95 06/01/19 04:28 - Labs Lab Results: Laboratory Results - last 24 hr 05/25/19 05/31/19 05/31/19 21:43 08:19 08:26 WBC 0.9 L* RBC 2.27 L Hgb 7.0 L Hct 20.9 L MCV 92 MCH 31 MCHC 33 RDW 18.4 H Plt Count 12 L* Eos % (Auto) Quantitative Strategy Analyst Add Manual Diff Complete Total Counted 100 Seg Neuts % (Manual) 32.0 L Band Neutrophils % 0 Lymphocytes % (Manual) 34.0 Reactive Lymphs % (Man) 0 Monocytes % (Manual) 6.0 Eosinophils % (Manual) 25.0 H Basophils % (Manual) 1.0 Metamyelocytes % 2.0 Myelocytes % 0 Promyelocytes % 0 Blast Cells % 0 Nucleated RBC % Not Reportable Seg Neutrophils # Man 0.3 L Band Neutrophils # 0.0 Lymphocytes # (Manual) 0.3 L Abs React Lymphs (Man) 0.0 Monocytes # (Manual) 0.1 Eosinophils # (Manual) 0.2 Basophils # (Manual) 0.0 Metamyelocytes # 0.0 Myelocytes # 0.0 Promyelocytes # 0.0 Blast Cells # 0.0 WBC Morphology Not Reportable Hypersegmented Neuts Not Reportable Hyposegmented Neuts Not Reportable Hypogranular Neuts Not Reportable Smudge Cells Not Reportable Toxic Granulation Not Reportable Toxic Vacuolation Not Reportable Dohle Bodies Not Reportable Pelger-Huet Anomaly Not Reportable Pao Rods Not Reportable Platelet Estimate Consistent w auto Clumped Platelets Not Reportable Plt Clumps, EDTA Not Reportable Large Platelets Not Reportable Giant Platelets Not Reportable Platelet Satelliting Not Reportable Plt Morphology Comment Not Reportable RBC Morphology Not Reportable Dimorphic RBCs Not Reportable Polychromasia Not Reportable Hypochromasia 1+ Poikilocytosis Not Reportable Anisocytosis Not Reportable Microcytosis Not Reportable Macrocytosis Not Reportable Spherocytes Not Reportable Pappenheimer Bodies Not Reportable Sickle Cells Not Reportable Target Cells Not Reportable Tear Drop Cells Not Reportable Ovalocytes Not Reportable Helmet Cells Not Reportable [place] Bodies Not Reportable [place] Rings Not Reportable [place] Cells Not Reportable Bite Cells Not Reportable Crenated Cell Not Reportable Elliptocytes Not Reportable Acanthocytes (Spur) Not Reportable Rouleaux Not Reportable Hemoglobin C Crystals Not Reportable Schistocytes Not Reportable Malaria parasites Not Reportable Chung Bodies Not Reportable Hem Pathologist Commnt No POC Glucose 107 H Blood Type O POSITIVE Antibody Screen Negative Crossmatch See Detail 05/31/19 05/31/19 16:12 20:12 WBC RBC Hgb Hct MCV MCH MCHC RDW Plt Count Eos % (Auto) Add Manual Diff Total Counted Seg Neuts % (Manual) Band Neutrophils % Lymphocytes % (Manual) Reactive Lymphs % (Man) Monocytes % (Manual) Eosinophils % (Manual) Basophils % (Manual) Metamyelocytes % Myelocytes % Promyelocytes % Blast Cells % Nucleated RBC % Seg Neutrophils # Man Band Neutrophils # Lymphocytes # (Manual) Abs React Lymphs (Man) Monocytes # (Manual) Eosinophils # (Manual) Basophils # (Manual) Metamyelocytes # Myelocytes # Promyelocytes # Blast Cells # WBC Morphology Hypersegmented Neuts Hyposegmented Neuts Hypogranular Neuts Smudge Cells Toxic Granulation Toxic Vacuolation Dohle Bodies Pelger-Huet Anomaly Pao Rods Platelet Estimate Clumped Platelets Plt Clumps, EDTA Large Platelets Giant Platelets Platelet Satelliting Plt Morphology Comment RBC Morphology Dimorphic RBCs Polychromasia Hypochromasia Poikilocytosis Anisocytosis Microcytosis Macrocytosis Spherocytes Pappenheimer Bodies Sickle Cells Target Cells Tear Drop Cells Ovalocytes Helmet Cells [place] Bodies [place] Rings [place] Cells Bite Cells Crenated Cell Elliptocytes Acanthocytes (Spur) Rouleaux Hemoglobin C Crystals Schistocytes Malaria parasites Chung Bodies Hem Pathologist Commnt POC Glucose 225 H 107 H Blood Type Antibody Screen Crossmatch Medications & Allergies - Medications Allergies/Adverse Reactions: Allergies No Known Allergies Allergy (Verified 05/25/19 20:14) Home Medications: Home Medications Medication Instructions Recorded Confirmed Last Taken Type Acetaminophen [Acetaminophen TAB] 500 mg PO Q6HR 05/26/19 05/26/19 Unknown History Venlafaxine [Effexor] 75 mg PO BID 05/26/19 05/26/19 Unknown History Amlodipine Besylate [Norvasc] 5 mg PO DAILY #30 tablet 05/28/19 Unknown Rx HYDROcodone/APAP 5-325 [[place] 1 each PO Q6HR PRN #10 tablet 05/28/19 Unknown Rx 5-325 mg TAB] Loratadine [Claritin] 10 mg PO DAILY #30 tablet 05/28/19 Unknown Rx Metformin HCl [metFORMIN] 1,000 mg PO BID #60 tablet 05/28/19 Unknown Rx Metoprolol [Lopressor TAB] 25 mg PO BID #60 tablet 05/28/19 Unknown Rx Polyethylene Glycol 3350 [Miralax 17 gm PO QDAY #30 powd.pack 05/28/19 Unknown Rx 3465] Active Medications: Generic Name Dose Route Start Last Admin Trade Name Freq PRN Reason Stop Dose Admin Acetaminophen 650 mg 05/26/19 00:23 05/29/19 19:44 Tylenol PO 650 mg Q4H PRN Administration Pain MILD(1-3)/Fever >100.5/COLUNGA Acetaminophen/Hydrocodone Bitart 1 each 05/28/19 05:30 05/28/19 23:22 [place] 5/325 PO 1 each Q6H PRN Administration Pain, Moderate (4-6) Albuterol/Ipratropium 1 ampul 05/26/19 02:00 06/01/19 03:23 Duoneb *Not For Prn Use* IH Not Given Q6HRT [facility] Amlodipine Besylate 5 mg 05/26/19 11:00 05/31/19 10:46 Norvasc PO 5 mg DAILY XOCHITL Administration Dextrose 50 ml 05/26/19 00:23 D50w (25gm) Syringe IV PRN PRN Hypoglycemia Famotidine 20 mg 05/26/19 13:00 05/31/19 10:48 Pepcid PO 20 mg QDAY [facility] Administration Cefazolin Sodium 2 gm in 20 mls @ 40 mls/hr 06/02/19 10:43 Ancef/Sterile Water 2 Gm/20 Ml IV 06/02/19 23:00 PREOP [facility] Protocol Insulin Human Regular 0 units 05/28/19 07:30 05/31/19 22:24 Humulin R SUB-Q Not Given ACHS [facility] Protocol Metoprolol Tartrate 25 mg 05/26/19 11:00 05/31/19 22:29 Lopressor PO 25 mg BID XOCHITL Administration Ondansetron HCl 4 mg 05/26/19 00:23 05/27/19 12:04 Zofran IV 4 mg Q8H PRN Administration Nausea And Vomiting Phenol 1 spray 05/27/19 16:30 05/27/19 18:45 Chloraseptic MM 1 spray PRN PRN Administration Sore Throat Sodium Chloride 10 ml 05/26/19 10:00 05/31/19 22:30 Sodium Chloride Flush Syringe 10 Ml IV 10 ml BID XOCHITL Administration Sodium Chloride 10 ml 05/26/19 00:23 05/26/19 06:15 Sodium Chloride Flush Syringe 10 Ml IV 10 ml PRN PRN Administration LINE FLUSH
[2019-06-01] MEDS ORDERED: NACL 0.9% 500 ML 500 ML IV NR (07:30)
[2019-06-01 07:47] LABS: Hematocrit 20.8 % (30.3-42.9); Mean Corpuscular HGB Conc 34 % (30-34); Mean Corpuscular Volume 93 fl (79-97); Red Blood Count 2.24 M/mm3 (3.65-5.03); Red Cell Distribution Width 18.2 % (13.2-15.2)
[2019-06-01 07:56] LABS: Platelet Count 12 K/mm3 (140-440)
[2019-06-01] MEDS: TYLENOL PO PRN (08:29)
[2019-06-01] MEDS: HumuLIN R SUB-Q SCH ×4 (08:45→21:34)
[2019-06-01 08:51] LABS: Anisocytosis 2+; Basophils % (Manual) 0 % (0.0-1.8); Giant Platelets Rare; Hypochromasia 1+; Macrocytosis 1+; Platelet Estimate Consistent w Auto; Total Cells Counted 100
[2019-06-01] MEDS: NORVASC PO SCH (10:37)
[2019-06-01] MEDS: PEPCID PO SCH (10:38)
[2019-06-01] MEDS: LOPRESSOR PO SCH ×2 (10:38→21:35)
[2019-06-01] MEDS: SODIUM CHLORIDE FLUSH SYRINGE 10 ML IV SCH ×2 (10:39→21:36)
--- NOTE | 2019-06-01 11:06 | Event Note ---
Date: 06/01/[address] Chauhan. As her platelets are again 12, I recommended that we consider placing a PICC line so that therapy could be started. Once she hopefully responds and her platelets are at least 50, we will arrange for an outpatient port placement. He agreed with that plan. Please call with any questions.
--- NOTE | 2019-06-01 14:41 | Progress Note ---
Assessment and Plan Assessment and plan: MDS. Pt with Pancytopenia/anemia--PRBCs and platelets have been given on 2 separate occasions. Patient still with anemia and thrombocytopenia. Transfused with platelet and PRBC. Heme/Onc following The plan was to put a port cath by surgery with recommended to have PICC line because of severe thrombocytopenia and will have port cath some other time when platelet is getting better. IR consult placed for PICC line. Acute hypoxic resp failure. Resolved. Etiology sec to HF and pulm htn Elevated DDimer - chest CTA negative for PE. Acute HFpEF. Continue IV lasix BID. Echocardiogram revealed mild concentric left ventricular hypertrophy with EF of 45-50%. Left ventricular systolic function was mildly decreased. Patient with mild pulmonary hypertension. Cardiology following. Accelerated HTN. Optimize BPs - with norvasc and lopressor. DM II. Accucheks ac and hs. SSRI Disposition; possible DC tomorrow after piccline. History Interval history: Patient was seen and evaluated this morning, patient is saturating well on room air. Hospitalist Physical - Physical exam Narrative exam: Not in cardiopulmonary distress. The patient appeared well nourished and normally developed. Vital signs as documented. Head exam is unremarkable. No scleral icterus . Neck is without jugular venous distension, thyromegaly, or carotid bruits. Lungs are clear to auscultation. Cardiac exam reveals regular rate and Rhythm. Abdominal exam reveals normal bowel sounds. Extremities are nonedematous and both femoral and pedal pulses are normal. VISUAL EDUCATION DIRECTOR: Alert and oriented 3. No focal weakness. - Constitutional Vitals: Temp Pulse Resp BP Pulse Ox 98.5 F 68 18 140/36 100 06/01/19 07:16 06/01/19 14:22 06/01/19 14:22 06/01/19 10:38 06/01/19 08:32 General appearance: Present: no acute distress, well-nourished Results - Labs CBC & Chem 7: 06/01/19 07:10 05/30/19 Unknown Labs: Laboratory Last Values WBC 0.8 K/mm3 (4.5-11.0) L* 06/01/19 07:10 RBC 2.24 M/mm3 (3.65-5.03) L 06/01/19 07:10 Hgb 7.0 gm/dl (10.1-14.3) L 06/01/19 07:10 Hct 20.8 % (30.3-42.9) L 06/01/19 07:10 MCV 93 fl (79-97) 06/01/19 07:10 MCH 31 pg (28-32) 06/01/19 07:10 MCHC 34 % (30-34) 06/01/19 07:10 RDW 18.2 % (13.2-15.2) H 06/01/19 07:10 Plt Count 12 K/mm3 (140-440) L* 06/01/19 07:10 [place] % (Auto) Foamite Mixer 06/01/19 07:10 Eos % (Auto) Foamite Mixer 05/31/19 08:26 Baso % (Auto) Foamite Mixer 05/25/19 20:15 Add Manual Diff Complete 06/01/19 07:10 Total Counted 100 06/01/19 07:10 Seg Neutrophils % Foamite Mixer 06/01/19 07:10 Seg Neuts % (Manual) 22.0 % (40.0-70.0) L 06/01/19 07:10 1.0 % 06/01/19 07:10 47.0 % (13.4-35.0) H 06/01/19 07:10 Reactive Lymphs % (Man) 1.0 % 06/01/19 07:10 8.0 % (0.0-7.3) H 06/01/19 07:10 20.0 % (0.0-4.3) H 06/01/19 07:10 0 % (0.0-1.8) 06/01/19 07:10 0 % 06/01/19 07:10 1.0 % 06/01/19 07:10 0 % 06/01/19 07:10 0 % 06/01/19 07:10 Nucleated RBC % Not Reportable 06/01/19 07:10 Seg Neutrophils # Man 0.2 K/mm3 (1.8-7.7) L 06/01/19 07:10 Band Neutrophils # 0.0 K/mm3 06/01/19 07:10 0.4 K/mm3 (1.2-5.4) L 06/01/19 07:10 Abs React Lymphs (Man) 0.0 K/mm3 06/01/19 07:10 0.1 K/mm3 (0.0-0.8) 06/01/19 07:10 0.2 K/mm3 (0.0-0.4) 06/01/19 07:10 0.0 K/mm3 (0.0-0.1) 06/01/19 07:10 0.0 K/mm3 06/01/19 07:10 0.0 K/mm3 06/01/19 07:10 0.0 K/mm3 06/01/19 07:10 Blast Cells # 0.0 K/mm3 06/01/19 07:10 WBC Morphology Not Reportable 06/01/19 07:10 Hypersegmented Neuts Not Reportable 06/01/19 07:10 Hyposegmented Neuts Not Reportable 06/01/19 07:10 Hypogranular Neuts Not Reportable 06/01/19 07:10 Not Reportable 06/01/19 07:10 Not Reportable 06/01/19 07:10 Not Reportable 06/01/19 07:10 Not Reportable 06/01/19 07:10 Not Reportable 06/01/19 07:10 Not Reportable 06/01/19 07:10 Consistent w auto 06/01/19 07:10 Not Reportable 06/01/19 07:10 Plt Clumps, EDTA Not Reportable 06/01/19 07:10 Not Reportable 06/01/19 07:10 Rare 06/01/19 07:10 Not Reportable 06/01/19 07:10 Plt Morphology Comment Not Reportable 06/01/19 07:10 RBC Morphology Not Reportable 06/01/19 07:10 Dimorphic RBCs Not Reportable 06/01/19 07:10 Not Reportable 06/01/19 07:10 1+ 06/01/19 07:10 Not Reportable 06/01/19 07:10 2+ 06/01/19 07:10 Not Reportable 06/01/19 07:10 1+ 06/01/19 07:10 Not Reportable 06/01/19 07:10 Not Reportable 06/01/19 07:10 Not Reportable 06/01/19 07:10 Not Reportable 06/01/19 07:10 Not Reportable 06/01/19 07:10 Not Reportable 06/01/19 07:10 Not Reportable 06/01/19 07:10 Not Reportable 06/01/19 07:10 Not Reportable 06/01/19 07:10 Not Reportable 06/01/19 07:10 Not Reportable 06/01/19 07:10 Not Reportable 06/01/19 07:10 Not Reportable 06/01/19 07:10 Acanthocytes (Spur) Not Reportable 06/01/19 07:10 Rouleaux Not Reportable 06/01/19 07:10 Not Reportable 06/01/19 07:10 Not Reportable 06/01/19 07:10 Not Reportable 06/01/19 07:10 Not Reportable 06/01/19 07:10 Hem Pathologist Commnt No 06/01/19 07:10 PT 15.9 Sec. (12.2-14.9) H 05/30/19 Unknown INR 1.30 (0.87-1.13) H 05/30/19 Unknown APTT 32.1 Sec. (24.2-36.6) 05/30/19 Unknown 609.27 ng/mlDDU (0-234) H 05/25/19 20:15 POC ABG pH 7.456 (7.35-7.45) H 05/25/19 23:07 POC ABG pCO2 36.7 (35-45) 05/25/19 23:07 POC ABG pO2 121 (80-105) H 05/25/19 23:07 POC ABG HCO3 25.9 (22-26 mml/L) 05/25/19 23:07 POC ABG Total CO2 27 (23-27mmol/L) 05/25/19 23:07 POC ABG O2 Sat 99 05/25/19 23:07 POC ABG Base Excess 2 ((-2) - (+3)mmol/L) 05/25/19 23:07 40 % 05/25/19 23:07 Sodium 144 mmol/L (137-145) 05/30/19 Unknown Potassium 3.5 mmol/L (3.6-5.0) L 05/30/19 Unknown Chloride 100.8 mmol/L (98-107) 05/30/19 Unknown Carbon Dioxide 30 mmol/L (22-30) 05/30/19 Unknown 17 mmol/L 05/30/19 Unknown BUN 23 mg/dL (7-17) H 05/30/19 Unknown 1.0 mg/dL (0.7-1.2) 05/30/19 Unknown Estimated GFR > 60 ml/min 05/30/19 Unknown 23 % 05/30/19 Unknown Glucose 111 mg/dL (65-100) H 05/30/19 Unknown POC Glucose 105 (70-105) 06/01/19 13:11 Lactic Acid 1.10 mmol/L (0.7-2.0) 05/25/19 21:43 Calcium 8.0 mg/dL (8.4-10.2) L 05/30/19 Unknown Magnesium 2.10 mg/dL (1.7-2.3) 05/25/19 20:15 1.10 mg/dL (0.1-1.2) 05/30/19 Unknown AST 7 units/L (5-40) 05/30/19 Unknown ALT < 5 units/L (7-56) L 05/30/19 Unknown 48 units/L (35-129) 05/30/19 Unknown < 7 units/L (30-135) L 05/26/19 08:46 CK-MB (CK-2) < 1.0 ng/mL (0.0-4.0) 05/26/19 08:46 CK-MB (CK-2) Rel Index 0.0 (0-4) 05/26/19 08:46 < 0.010 ng/mL (0.00-0.029) 05/26/19 08:46 12.60 mg/dL (0.00-1.30) H 05/26/19 Unknown NT-Pro-B Natriuret Pep 5267 pg/mL (0-900) H 05/25/19 20:15 6.8 g/dL (6.3-8.2) 05/30/19 Unknown 3.8 g/dL (3.9-5) L 05/30/19 Unknown 1.3 % 05/30/19 Unknown TSH 1.200 mlU/mL (0.270-4.200) 05/25/19 20:15 Blood Type O POSITIVE 06/01/19 07:10 Antibody Screen Negative 05/25/19 21:43 Crossmatch See Detail 05/25/19 21:43 Active Medications - Current Medications Current Medications: Generic Name Dose Route Start Last Admin Trade Name Freq PRN Reason Stop Dose Admin Acetaminophen 650 mg 05/26/19 00:23 06/01/19 08:29 Tylenol PO 650 mg Q4H PRN Administration Pain MILD(1-3)/Fever >100.5/COLUNGA Acetaminophen/Hydrocodone Bitart 1 each 05/28/19 05:30 05/28/19 23:22 [place] 5/325 PO 1 each Q6H PRN Administration Pain, Moderate (4-6) Albuterol/Ipratropium 1 ampul 05/26/19 02:00 06/01/19 14:11 Duoneb *Not For Prn Use* IH 1 ampul Q6HRT XOCHITL Administration Amlodipine Besylate 5 mg 05/26/19 11:00 06/01/19 10:37 Norvasc PO 5 mg DAILY XOCHITL Administration Dextrose 50 ml 05/26/19 00:23 D50w (25gm) Syringe IV PRN PRN Hypoglycemia Famotidine 20 mg 05/26/19 13:00 06/01/19 10:38 Pepcid PO 20 mg QDAY XOCHITL Administration Sodium Chloride 500 mls @ 0 mls/hr 06/01/19 07:30 Nacl 0.9% 500 Ml IV 06/01/19 16:00 ONCE NR As Directed Insulin Human Regular 0 units 05/28/19 07:30 06/01/19 13:08 Humulin R SUB-Q Not Given ACHS [facility] Protocol Metoprolol Tartrate 25 mg 05/26/19 11:00 06/01/19 10:38 Lopressor PO 25 mg BID XOCHITL Administration Ondansetron HCl 4 mg 05/26/19 00:23 05/27/19 12:04 Zofran IV 4 mg Q8H PRN Administration Nausea And Vomiting Phenol 1 spray 05/27/19 16:30 05/27/19 18:45 Chloraseptic MM 1 spray PRN PRN Administration Sore Throat Sodium Chloride 10 ml 05/26/19 10:00 06/01/19 10:39 Sodium Chloride Flush Syringe 10 Ml IV 10 ml BID XOCHITL Administration Sodium Chloride 10 ml 05/26/19 00:23 05/26/19 06:15 Sodium Chloride Flush Syringe 10 Ml IV 10 ml PRN PRN Administration LINE FLUSH Nutrition/Malnutrition Assess - Dietary Evaluation Nutrition/Malnutrition Findings: Nutrition Notes Start: 06/01/19 12:09 Freq: Status: Active Protocol: Document 06/01/19 12:09 RS (Rec: 06/01/19 12:49 RS [id number]) Co-Sign 06/01/19 12:09 RM Nutrition Notes Need for Assessment generated from: LOS Initial or Follow up Assessment Current Diagnosis Diabetes,Hypertension,Heart Failure Other Pertinent Diagnosis Myelodyplastic syndrome Current Diet Cardiac Labs/Tests Reviewed Pertinent Medications Reviewed Height 5 ft 3 in Weight 63.5 kg [place] Body Weight (kg) 52.27 BMI 24.7 Intake Prior to Admission Fair Weight Status Appropriate Subjective/Other Information Pt consulted for LOS. Pt c/o cold meals being delivered. Pt was informed she can tell her nurses to heat up food if necessary. Pt self reports only eating 50% of all her meals. Appetite is fair. Percent of energy/protein needs met: 81%/65% Burn Absent Trauma Absent GI Symptoms None Food Allergy No Current % PO Fair (50-74%) Minimum of two criteria No #1 Nutrition Diagnosis Inadequate energy intake Etiology cold meals, fair appetite As Evidenced by Signs and Symptoms pt only eating 50% of her meals Is patient on ventilator? No Is Patient Ambulatory and/or Out of Bed No REE-([place]-St. Jeor-confined to bed) 1307.676 Calculation Used for Recommendations [place]-St or Additional Notes Pro needs (1.0-1.2g/kg): 64- 76g/day Fluid: 1mL/kcal Nutrition Intervention Change Diet Order: Continue diet Add Supplement/Snack (indicate name/kcal Glucerna Chocolate /protein ) Provides kCal: 220 Provides Protein (gm) 10 Goal #1 Meet at least 75% of kcal/pro needs Follow-Up By: 06/03/19 Additional Comments F/U for PO/ONS intake
--- NOTE | 2019-06-01 20:04 | Progress Note ---
Assessment and Plan .Patient sleeping. No acute respiratory distress. Patient on 2 L O2 and O2 saturation is 100 %. No complaint of chest pain, SOB, or cough. Afebrile. Patient is pancytopenic. - Patient Problems (1) Chest pain Current Visit: Yes Status: Resolved Plan to address problem: Patient reports chest pain improved. (2) Dyspnea Current Visit: Yes Status: Acute Plan to address problem: Patient is on 2 L O2. No acute respiratory distress. (3) Neutropenia Current Visit: Yes Status: Acute Plan to address problem: Management as per primary care. (4) Diabetes Current Visit: Yes Status: Chronic Plan to address problem: Management as per primary care. 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 (6) Pancytopenia Current Visit: Yes Status: Chronic Plan to address problem: Management as per primary care. Subjective Date of service: 06/01/19 Principal diagnosis: MDS Interval history: Patient sleeping. No acute respiratory distress. Patient on 2 L O2 and O2 saturation is 100 %. No complaint of chest pain, SOB, or cough. Afebrile. Patient is pancytopenic. Objective Vital Signs - 12hr 06/01/19 06/01/19 06/01/19 08:32 08:47 10:00 Pulse Rate 72 Pulse Rate [ Apical] Pulse Rate [ 67 Bilateral Throughout] Pulse Rate [ From Monitor] Pulse Rate [ Right Radial] Respiratory Rate Respiratory 18 Rate [Bilateral Throughout] Blood Pressure O2 Sat by Pulse 100 Oximetry 06/01/19 06/01/19 06/01/19 10:37 10:38 14:22 Pulse Rate 73 73 Pulse Rate [ Apical] Pulse Rate [ 68 Bilateral Throughout] Pulse Rate [ From Monitor] Pulse Rate [ Right Radial] Respiratory Rate Respiratory 18 Rate [Bilateral Throughout] Blood Pressure 140/36 140/36 O2 Sat by Pulse Oximetry 06/01/19 15:16 Pulse Rate Pulse Rate [ 74 Apical] Pulse Rate [ Bilateral Throughout] Pulse Rate [ 74 From Monitor] Pulse Rate [ 74 Right Radial] Respiratory 18 Rate Respiratory Rate [Bilateral Throughout] Blood Pressure O2 Sat by Pulse 100 Oximetry Constitutional: no acute distress, alert Eyes: non-icteric ENT: oropharynx moist Neck: supple, no lymphadenopathy, no JVD Effort: mildly labored Ascultation: Bilateral: diminished breath sounds, rhonchi Percussion: Bilateral: not dull Cardiovascular: regular rate and rhythm Gastrointestinal: normoactive bowel sounds, soft, non-tender, non-distended Integumentary: normal Extremities: no cyanosis, no edema, pulses normal, no ischemia or petechiae Neurologic: normal mental status, non-focal exam, pupils equal and round, CN II- XII normal Psychiatric: mood appropriate, affect normal CBC and BMP: 06/01/19 07:10 05/30/19 Unknown ABG, PT/INR, D-dimer: ABG POC ABG pH 7.456 (7.35-7.45) H 05/25/19 23:07 POC ABG pCO2 36.7 (35-45) 05/25/19 23:07 POC ABG pO2 121 (80-105) H 05/25/19 23:07 POC ABG HCO3 25.9 (22-26 mml/L) 05/25/19 23:07 POC ABG Total CO2 27 (23-27mmol/L) 05/25/19 23:07 POC ABG O2 Sat 99 05/25/19 23:07 PT/INR, D-dimer PT 15.9 Sec. (12.2-14.9) H 05/30/19 Unknown INR 1.30 (0.87-1.13) H 05/30/19 Unknown 609.27 ng/mlDDU (0-234) H 05/25/19 20:15 Abnormal lab findings: Abnormal Labs 05/25/19 05/25/19 05/25/19 20:15 20:15 20:15 WBC 1.1 L* RBC 1.93 L Hgb 6.0 L Hct 18.2 L* RDW 22.6 H Plt Count 48 L Seg Neuts % (Manual) Lymphocytes % (Manual) Monocytes % (Manual) 19.0 H Eosinophils % (Manual) 7.0 H Basophils % (Manual) 3.0 H Nucleated RBC % Seg Neutrophils # Man 0.5 L Lymphocytes # (Manual) 0.3 L PT 18.1 H INR 1.54 H APTT 40.6 H D-Dimer 609.27 H POC ABG pH POC ABG pO2 Potassium BUN 19 H Glucose POC Glucose Calcium 8.3 L Total Bilirubin 1.40 H ALT < 5 L Total Creatine Kinase CK-MB (CK-2) Rel Index C-Reactive Protein NT-Pro-B Natriuret Pep Albumin 3.6 L Crossmatch 05/25/19 05/25/19 05/25/19 20:15 21:43 23:07 WBC RBC Hgb Hct RDW Plt Count Seg Neuts % (Manual) Lymphocytes % (Manual) Monocytes % (Manual) Eosinophils % (Manual) Basophils % (Manual) Nucleated RBC % Seg Neutrophils # Man Lymphocytes # (Manual) PT INR APTT D-Dimer POC ABG pH 7.456 H POC ABG pO2 121 H Potassium BUN Glucose POC Glucose Calcium Total Bilirubin ALT Total Creatine Kinase 17 L CK-MB (CK-2) Rel Index C-Reactive Protein NT-Pro-B Natriuret Pep 5267 H Albumin Crossmatch See Detail 05/26/19 05/26/19 05/26/19 04:50 04:50 06:20 WBC 1.1 L* RBC 2.16 L Hgb 6.6 L Hct 19.7 L* RDW 18.4 H Plt Count 40 L Seg Neuts % (Manual) Lymphocytes % (Manual) Monocytes % (Manual) 10.0 H Eosinophils % (Manual) Basophils % (Manual) Nucleated RBC % 3.0 H Seg Neutrophils # Man 0.6 L Lymphocytes # (Manual) 0.3 L PT INR APTT D-Dimer POC ABG pH POC ABG pO2 Potassium BUN Glucose POC Glucose 122 H Calcium Total Bilirubin ALT Total Creatine Kinase 8 L CK-MB (CK-2) Rel Index 12.5 H C-Reactive Protein NT-Pro-B Natriuret Pep Albumin Crossmatch 05/26/19 05/26/19 05/26/19 08:46 21:44 Unknown WBC RBC Hgb Hct RDW Plt Count Seg Neuts % (Manual) Lymphocytes % (Manual) Monocytes % (Manual) Eosinophils % (Manual) Basophils % (Manual) Nucleated RBC % Seg Neutrophils # Man Lymphocytes # (Manual) PT INR APTT D-Dimer POC ABG pH POC ABG pO2 Potassium BUN Glucose POC Glucose 161 H Calcium Total Bilirubin ALT Total Creatine Kinase < 7 L CK-MB (CK-2) Rel Index C-Reactive Protein 12.60 H NT-Pro-B Natriuret Pep Albumin Crossmatch 05/27/19 05/27/19 05/28/19 02:19 21:27 08:50 WBC RBC Hgb Hct RDW Plt Count Seg Neuts % (Manual) Lymphocytes % (Manual) Monocytes % (Manual) Eosinophils % (Manual) Basophils % (Manual) Nucleated RBC % Seg Neutrophils # Man Lymphocytes # (Manual) PT INR APTT D-Dimer POC ABG pH POC ABG pO2 Potassium BUN 21 H Glucose POC Glucose 126 H 116 H Calcium 7.9 L Total Bilirubin ALT Total Creatine Kinase CK-MB (CK-2) Rel Index C-Reactive Protein NT-Pro-B Natriuret Pep Albumin Crossmatch 05/28/19 05/28/19 05/28/19 09:32 12:26 22:10 WBC 4.0 L RBC 2.17 L Hgb 6.7 L Hct 20.1 L RDW 20.6 H Plt Count 14 L* Seg Neuts % (Manual) 74.0 H Lymphocytes % (Manual) Monocytes % (Manual) Eosinophils % (Manual) Basophils % (Manual) Nucleated RBC % Seg Neutrophils # Man Lymphocytes # (Manual) 0.8 L PT INR APTT D-Dimer POC ABG pH POC ABG pO2 Potassium BUN Glucose POC Glucose 120 H 131 H Calcium Total Bilirubin ALT Total Creatine Kinase CK-MB (CK-2) Rel Index C-Reactive Protein NT-Pro-B Natriuret Pep Albumin Crossmatch 05/29/19 05/29/19 05/29/19 07:49 08:49 11:55 WBC 3.2 L RBC 2.40 L Hgb 7.5 L Hct 22.1 L RDW 18.4 H Plt Count 11 L* Seg Neuts % (Manual) 72.0 H Lymphocytes % (Manual) 10.0 L Monocytes % (Manual) Eosinophils % (Manual) Basophils % (Manual) Nucleated RBC % Seg Neutrophils # Man Lymphocytes # (Manual) 0.3 L PT INR APTT D-Dimer POC ABG pH POC ABG pO2 Potassium BUN Glucose POC Glucose 121 H 106 H Calcium Total Bilirubin ALT Total Creatine Kinase CK-MB (CK-2) Rel Index C-Reactive Protein NT-Pro-B Natriuret Pep Albumin Crossmatch 05/29/19 05/29/19 05/30/19 17:51 20:49 07:53 WBC RBC Hgb Hct RDW Plt Count Seg Neuts % (Manual) Lymphocytes % (Manual) Monocytes % (Manual) Eosinophils % (Manual) Basophils % (Manual) Nucleated RBC % Seg Neutrophils # Man Lymphocytes # (Manual) PT INR APTT D-Dimer POC ABG pH POC ABG pO2 Potassium BUN Glucose POC Glucose 112 H 149 H 115 H Calcium Total Bilirubin ALT Total Creatine Kinase CK-MB (CK-2) Rel Index C-Reactive Protein NT-Pro-B Natriuret Pep Albumin Crossmatch 05/30/19 05/30/19 05/30/19 11:50 16:36 Unknown WBC 1.4 L* RBC 2.22 L Hgb 6.9 L Hct 20.4 L RDW 18.4 H Plt Count 7 L* Seg Neuts % (Manual) Lymphocytes % (Manual) Monocytes % (Manual) Eosinophils % (Manual) 9.0 H Basophils % (Manual) Nucleated RBC % Seg Neutrophils # Man 0.8 L Lymphocytes # (Manual) 0.3 L PT INR APTT D-Dimer POC ABG pH POC ABG pO2 Potassium BUN Glucose POC Glucose 118 H 358 H Calcium Total Bilirubin ALT Total Creatine Kinase CK-MB (CK-2) Rel Index C-Reactive Protein NT-Pro-B Natriuret Pep Albumin Crossmatch 05/30/19 05/30/19 05/31/19 Unknown Unknown 08:19 WBC RBC Hgb Hct RDW Plt Count Seg Neuts % (Manual) Lymphocytes % (Manual) Monocytes % (Manual) Eosinophils % (Manual) Basophils % (Manual) Nucleated RBC % Seg Neutrophils # Man Lymphocytes # (Manual) PT 15.9 H INR 1.30 H APTT D-Dimer POC ABG pH POC ABG pO2 Potassium 3.5 L BUN 23 H Glucose 111 H POC Glucose 107 H Calcium 8.0 L Total Bilirubin ALT < 5 L Total Creatine Kinase CK-MB (CK-2) Rel Index C-Reactive Protein NT-Pro-B Natriuret Pep Albumin 3.8 L Crossmatch 05/31/19 05/31/19 05/31/19 08:26 16:12 20:12 WBC 0.9 L* RBC 2.27 L Hgb 7.0 L Hct 20.9 L RDW 18.4 H Plt Count 12 L* Seg Neuts % (Manual) 32.0 L Lymphocytes % (Manual) Monocytes % (Manual) Eosinophils % (Manual) 25.0 H Basophils % (Manual) Nucleated RBC % Seg Neutrophils # Man 0.3 L Lymphocytes # (Manual) 0.3 L PT INR APTT D-Dimer POC ABG pH POC ABG pO2 Potassium BUN Glucose POC Glucose 225 H 107 H Calcium Total Bilirubin ALT Total Creatine Kinase CK-MB (CK-2) Rel Index C-Reactive Protein NT-Pro-B Natriuret Pep Albumin Crossmatch 06/01/19 06/01/19 06/01/19 07:10 07:24 17:24 WBC 0.8 L* RBC 2.24 L Hgb 7.0 L Hct 20.8 L RDW 18.2 H Plt Count 12 L* Seg Neuts % (Manual) 22.0 L Lymphocytes % (Manual) 47.0 H Monocytes % (Manual) 8.0 H Eosinophils % (Manual) 20.0 H Basophils % (Manual) Nucleated RBC % Seg Neutrophils # Man 0.2 L Lymphocytes # (Manual) 0.4 L PT INR APTT D-Dimer POC ABG pH POC ABG pO2 Potassium BUN Glucose POC Glucose 127 H 153 H Calcium Total Bilirubin ALT Total Creatine Kinase CK-MB (CK-2) Rel Index C-Reactive Protein NT-Pro-B Natriuret Pep Albumin Crossmatch Allied health notes reviewed: nursing
[2019-06-02] MEDS: DUONEB *Not for PRN Use IH SCH ×2 (03:17→10:08)
[2019-06-02 05:27] VITALS: BP 140/47
--- NOTE | 2019-06-02 07:45 | Hem/Onc Progress Note ---
Assessment and Plan 1. History of myelodysplastic syndrome, anemia, leukopenia, thrombocytopenia. The patient has received first dose of decitabine in the end of March and received G-CSF after that. 2. Recent hospitalization at [place] and received blood transfusion. 3. h/o anemic. Transfusion support. 4. BNP high, shortness of breath, chest pain, seen by Cardiology team. 5. For the low platelet, in case of bleeding, transfusion support. 6. Hypertension history. 7. History of diabetes. 8. G-CSF support. 9. BiPAP for respiratory issues. 10. Antibiotic support. 11. For the myelodysplastic syndrome, she would need at least 4 cycles of chemotherapy to evaluate if there is a response. She would need transfusion support in the interim. low wbc anemia low plt 06/02 picc planned if plt less - this will be rescheduled - Patient Problems (1) Neutropenia Status: Acute Subjective Date of service: 06/02/19 Principal diagnosis: MDS Interval history: picc line Objective - Exam Narrative Exam: Pain - none General appearance - breathing better Performance status limited self care Eyes - no icterus, pallor + ENT - no bleeding LNs cervical not palpable Neck - no LN Respiratory Normal Breath sounds - CTA CVS S1 S2 + Extremities finger - bandage General GI Soft Rectal deferred female - deferred Skin warm Musculoskeletal moving extremitites Neurologically awake - oriented - Constitutional Vitals: Last Vital Signs Temp 98.6 F 06/02/19 04:54 Pulse 79 06/02/19 04:54 Resp 20 06/02/19 04:54 BP 140/47 06/02/19 04:54 Pulse Ox 99 06/02/19 04:54 - Labs Lab Results: Laboratory Results - last 24 hr 06/01/19 06/01/19 06/01/19 07:10 07:10 13:11 WBC 0.8 L* RBC 2.24 L Hgb 7.0 L Hct 20.8 L MCV 93 MCH 31 MCHC 34 RDW 18.2 H Plt Count 12 L* [place] % (Auto) Vascular Specialists Add Manual Diff Complete Total Counted 100 Seg Neutrophils % Vascular Specialists Seg Neuts % (Manual) 22.0 L Band Neutrophils % 1.0 Lymphocytes % (Manual) 47.0 H Reactive Lymphs % (Man) 1.0 Monocytes % (Manual) 8.0 H Eosinophils % (Manual) 20.0 H Basophils % (Manual) 0 Metamyelocytes % 0 Myelocytes % 1.0 Promyelocytes % 0 Blast Cells % 0 Nucleated RBC % Not Reportable Seg Neutrophils # Man 0.2 L Band Neutrophils # 0.0 Lymphocytes # (Manual) 0.4 L Abs React Lymphs (Man) 0.0 Monocytes # (Manual) 0.1 Eosinophils # (Manual) 0.2 Basophils # (Manual) 0.0 Metamyelocytes # 0.0 Myelocytes # 0.0 Promyelocytes # 0.0 Blast Cells # 0.0 WBC Morphology Not Reportable Hypersegmented Neuts Not Reportable Hyposegmented Neuts Not Reportable Hypogranular Neuts Not Reportable Smudge Cells Not Reportable Toxic Granulation Not Reportable Toxic Vacuolation Not Reportable Dohle Bodies Not Reportable Pelger-Huet Anomaly Not Reportable Pao Rods Not Reportable Platelet Estimate Consistent w auto Clumped Platelets Not Reportable Plt Clumps, EDTA Not Reportable Large Platelets Not Reportable Giant Platelets Rare Platelet Satelliting Not Reportable Plt Morphology Comment Not Reportable RBC Morphology Not Reportable Dimorphic RBCs Not Reportable Polychromasia Not Reportable Hypochromasia 1+ Poikilocytosis Not Reportable Anisocytosis 2+ Microcytosis Not Reportable Macrocytosis 1+ Spherocytes Not Reportable Pappenheimer Bodies Not Reportable Sickle Cells Not Reportable Target Cells Not Reportable Tear Drop Cells Not Reportable Ovalocytes Not Reportable Helmet Cells Not Reportable [place] Bodies Not Reportable [place] Rings Not Reportable [place] Cells Not Reportable Bite Cells Not Reportable Crenated Cell Not Reportable Elliptocytes Not Reportable Acanthocytes (Spur) Not Reportable Rouleaux Not Reportable Hemoglobin C Crystals Not Reportable Schistocytes Not Reportable Malaria parasites Not Reportable Chung Bodies Not Reportable Hem Pathologist Commnt No POC Glucose 105 Blood Type O POSITIVE 06/01/19 06/01/19 17:24 21:34 WBC RBC Hgb Hct MCV MCH MCHC RDW Plt Count [place] % (Auto) Add Manual Diff Total Counted Seg Neutrophils % Seg Neuts % (Manual) Band Neutrophils % Lymphocytes % (Manual) Reactive Lymphs % (Man) Monocytes % (Manual) Eosinophils % (Manual) Basophils % (Manual) Metamyelocytes % Myelocytes % Promyelocytes % Blast Cells % Nucleated RBC % Seg Neutrophils # Man Band Neutrophils # Lymphocytes # (Manual) Abs React Lymphs (Man) Monocytes # (Manual) Eosinophils # (Manual) Basophils # (Manual) Metamyelocytes # Myelocytes # Promyelocytes # Blast Cells # WBC Morphology Hypersegmented Neuts Hyposegmented Neuts Hypogranular Neuts Smudge Cells Toxic Granulation Toxic Vacuolation Dohle Bodies Pelger-Huet Anomaly Pao Rods Platelet Estimate Clumped Platelets Plt Clumps, EDTA Large Platelets Giant Platelets Platelet Satelliting Plt Morphology Comment RBC Morphology Dimorphic RBCs Polychromasia Hypochromasia Poikilocytosis Anisocytosis Microcytosis Macrocytosis Spherocytes Pappenheimer Bodies Sickle Cells Target Cells Tear Drop Cells Ovalocytes Helmet Cells [place] Bodies [place] Rings Manuel Cells Bite Cells Crenated Cell Elliptocytes Acanthocytes (Spur) Rouleaux Hemoglobin C Crystals Schistocytes Malaria parasites Chung Bodies Hem Pathologist Commnt POC Glucose 153 H 121 H Blood Type Medications & Allergies - Medications Allergies/Adverse Reactions: Allergies No Known Allergies Allergy (Verified 05/25/19 20:14) Home Medications: Home Medications Medication Instructions Recorded Confirmed Last Taken Type Acetaminophen [Acetaminophen TAB] 500 mg PO Q6HR 05/26/19 05/26/19 Unknown History Venlafaxine [Effexor] 75 mg PO BID 05/26/19 05/26/19 Unknown History Amlodipine Besylate [Norvasc] 5 mg PO DAILY #30 tablet 05/28/19 Unknown Rx HYDROcodone/APAP 5-325 [Critz 1 each PO Q6HR PRN #10 tablet 05/28/19 Unknown Rx 5-325 mg TAB] Loratadine [Claritin] 10 mg PO DAILY #30 tablet 05/28/19 Unknown Rx Metformin HCl [metFORMIN] 1,000 mg PO BID #60 tablet 05/28/19 Unknown Rx Metoprolol [Lopressor TAB] 25 mg PO BID #60 tablet 05/28/19 Unknown Rx Polyethylene Glycol 3350 [Miralax 17 gm PO QDAY #30 powd.pack 05/28/19 Unknown Rx 3350] Active Medications: Generic Name Dose Route Start Last Admin Trade Name Freq PRN Reason Stop Dose Admin Acetaminophen 650 mg 05/26/19 00:23 06/01/19 08:29 Tylenol PO 650 mg Q4H PRN Administration Pain MILD(1-3)/Fever >100.5/COLUNGA Acetaminophen/Hydrocodone Bitart 1 each 05/28/19 05:30 05/28/19 23:22 Critz 5/325 PO 1 each Q6H PRN Administration Pain, Moderate (4-6) Albuterol/Ipratropium 1 ampul 05/26/19 02:00 06/02/19 03:17 Duoneb *Not For Prn Use* IH 1 ampul Q6HRT XOCHITL Administration Amlodipine Besylate 5 mg 05/26/19 11:00 06/01/19 10:37 Norvasc PO 5 mg DAILY XOCHITL Administration Dextrose 50 ml 05/26/19 00:23 D50w (25gm) Syringe IV PRN PRN Hypoglycemia Famotidine 20 mg 05/26/19 13:00 06/01/19 10:38 Pepcid PO 20 mg QDAY XOCHITL Administration Insulin Human Regular 0 units 05/28/19 07:30 06/01/19 21:34 Humulin R SUB-Q Not Given ACHS [facility] Protocol Metoprolol Tartrate 25 mg 05/26/19 11:00 06/01/19 21:35 Lopressor PO Not Given BID [facility] Ondansetron HCl 4 mg 05/26/19 00:23 05/27/19 12:04 Zofran IV 4 mg Q8H PRN Administration Nausea And Vomiting Phenol 1 spray 05/27/19 16:30 05/27/19 18:45 Chloraseptic MM 1 spray PRN PRN Administration Sore Throat Sodium Chloride 10 ml 05/26/19 10:00 06/01/19 21:36 Sodium Chloride Flush Syringe 10 Ml IV 10 ml BID XOCHITL Administration Sodium Chloride 10 ml 05/26/19 00:23 05/26/19 06:15 Sodium Chloride Flush Syringe 10 Ml IV 10 ml PRN PRN Administration LINE FLUSH
[2019-06-02] MEDS ORDERED: XYLOCAINE 1%/ EPI 1:100,000 INFILTRATI ONE (08:16)
[2019-06-02] MEDS ORDERED: HEPARIN/NS 5000 UNIT/500ML(CATH LAB) 500 ML IR ONE (08:16)
[2019-06-02] MEDS ORDERED: HEPARIN 10,000 UNITS/10 ML ONE (08:16)
[2019-06-02] MEDS ORDERED: VERSED ONE (08:17)
[2019-06-02] MEDS ORDERED: NACL 0.9% 250ML 250 ML ONE (08:17)
[2019-06-02] MEDS ORDERED: SUBLIMAZE ONE (08:17)
--- NOTE | 2019-06-02 09:14 | Operative Report ---
Operative Report Operative Report: Exam: Ultrasound and fluoroscopic guided PICC placement Clinical indication: Patient with a history of myelodysplastic disorder and low platelets precluding port placement Date: 06/02/2019 Procedure: Following an explanation of the risks, benefits and alternatives; written informed consent was obtained. The patient was brought to the angiographic suite and placed in supine position on the examination table. Initial ultrasound evaluation of her left arm demonstrated a patent left basilic vein. The patient's left upper arm was prepped and draped in the usual sterile fashion. 1% lidocaine was used for anesthesia. Under ultrasound guidance, the left basilic vein was cannulated with a 7 cm 21-gauge needle. A 0.018 guidewire was advanced centrally under fluoroscopy to the IVC to document intravenous positioning. The needle was removed and a 5.5 Lao peel-away sheath placed over the guidewire. Following standard guidewire measurements, the guidewire was removed and the PICC cut to length. The PICC was then placed through the peel-away sheath and advanced centrally. A guidewire was utilized to allow the PICC to be advanced into the proximal right atrium. The guidewire was then removed. The peel-away sheath was removed. Contrast was injected through the PICC which demonstrated prompt opacification of the right heart and pulmonary arteries demonstrating intravenous positioning. Nonpulsatile blood return from both ports. The PICC was flushed and locked with sterile saline. The PICC was securely fastened at the skin surface using a StatLock device and a sterile dressing was applied. Given the patient's low platelets, a small compression dressing was also applied. The patient tolerated the procedure well. There were no immediate postprocedure complications. A minimal amount of conscious sedation was utilized under the guidance of radiologic nursing. Continuous cardiopulmonary monitoring was utilized. Impression: Ultrasound and fluoroscopic guided PICC placement via the left basilic vein
--- NOTE | 2019-06-02 09:35 | Discharge Summary ---
Providers - Providers Date of Admission: 05/25/19 22:30 Attending physician: GERALDINE KEEN MD 05/25/19 20:29 Consult to Physician [CONS] Urgent Comment: Consulting Provider: MARVIN RUSSELL Physician Instructions: Reason For Exam: cp pericardia effusion 05/25/19 21:04 Consult to Physician [CONS] Urgent Comment: Consulting Provider: RICARDO TOLLIVER Physician Instructions: Reason For Exam: anemia mds 05/25/19 21:30 Consult to Physician [CONS] Urgent Comment: Consulting Provider: YEFRI CHATMAN Physician Instructions: Reason For Exam: chf anemia neutrooenia 05/30/19 07:55 Consult to Physician [CONS] Routine Comment: Consulting Provider: BRADLEY SILVA Physician Instructions: Reason For Exam: port placement 06/01/19 14:34 Consult to Physician [CONS] Routine Comment: Consulting Provider: ARTUR BOWEN Physician Instructions: Reason For Exam: PICC line placement, severe thrombocytopenia [facility] Reason for admission: MDS, pancytopenia, acute diastolic heart failure Condition: Poor Hospital course: MDS. Pt with Pancytopenia/anemia--PRBCs and platelets have been given on 2 separate occasions. Patient still with anemia and thrombocytopenia. Transfused with platelet and PRBC. Heme/Onc saw the patient and recommed to discahrge the patient and said he will see the patient in the office soon. Patient has one round of chemo and will need 3 more rounds. Port cath couldn't be placed because of the severe thrombocytopenia, PICC line placed by IR for chemo and will have port cath as an o/p. Acute hypoxic resp failure. Resolved. Etiology sec to HF and pulm htn Elevated DDimer - chest CTA negative for PE. Acute HFpEF. Echocardiogram revealed mild concentric left ventricular hypertrophy. Left ventricular systolic function was mildly decreased. Patient with mild pulmonary hypertension. Cardiology following. Accelerated HTN controlled with norvasc and lopressor. DM II; continue Disposition: DC-01 TO HOME OR SELFCARE Time spent for discharge: 34 minutes - Discharge Diagnoses (1) Thrombocytopenia Status: Acute (2) Accelerated hypertension Status: Acute (3) Acute heart failure with preserved ejection fraction Status: Acute (4) Dyspnea Status: Acute (5) Myelodysplastic syndrome Status: Acute (6) Neutropenia Status: Acute (7) Diabetes Status: Chronic (8) Pancytopenia Status: Chronic Core Measure Documentation - Palliative Care Palliative Care/ Comfort Measures: Not Applicable - Core Measures Any of the following diagnoses?: none Exam - Physical Exam Narrative exam: Not in cardiopulmonary distress. The patient appeared well nourished and normally developed. Vital signs as documented. Head exam is unremarkable. No scleral icterus . Neck is without jugular venous distension, thyromegaly, or carotid bruits. Lungs are clear to auscultation. Cardiac exam reveals regular rate and Rhythm. Abdominal exam reveals normal bowel sounds. Extremities are nonedematous and both femoral and pedal pulses are normal. REVENUE LIAISON: Alert and oriented 3. No focal weakness. - Constitutional Vitals: Temp Pulse Resp BP Pulse Ox 98.6 F 79 20 140/47 99 06/02/19 04:54 06/02/19 04:54 06/02/19 04:54 06/02/19 04:54 06/02/19 04:54 Plan Activity: no restrictions Weight Bearing Status: Full Weight Bearing Diet: low cholesterol, low salt, diabetic Follow up with: MARSLAND JEFFRY MELTON MD [Primary Care Provider] - 3-5 Days RICARDO TOLLIVER MD [Staff Physician] - 3 Days CARLOZMARK HASSAN MD [Staff Physician] - 3 Days Prescriptions: Loratadine [Claritin] 10 mg PO DAILY #30 tablet Metoprolol [Lopressor TAB] 25 mg PO BID #60 tablet Metformin HCl [metFORMIN] 1,000 mg PO BID #60 tablet Polyethylene Glycol 3350 [Miralax 3350] 17 gm PO QDAY #30 powd.pack HYDROcodone/APAP 5-325 [[place] 5-325 mg TAB] 1 each PO Q6HR PRN #10 tablet PRN Reason: Pain Amlodipine Besylate [Norvasc] 5 mg PO DAILY #30 tablet
[2019-06-02] MEDS: PEPCID PO SCH (10:35)
[2019-06-02] MEDS: LOPRESSOR PO SCH (10:35)
[2019-06-02] MEDS: SODIUM CHLORIDE FLUSH SYRINGE 10 ML IV SCH (10:35)
[2019-06-02] MEDS: HumuLIN R SUB-Q SCH ×2 (10:35→13:23)
[2019-06-02] MEDS: NORVASC PO SCH (10:35)
[2019-06-02] MEDS ORDERED: ANCEF/STERILE WATER 2 GM/20 ML 2 GM/20 ML SYRINGE IV SCH (10:43)
--- NOTE | 2019-06-02 10:57 | Progress Note ---
Subjective Date of service: 06/02/19 Principal diagnosis: MDS Objective Vital Signs - 12hr 06/01/19 06/01/19 06/01/19 23:17 23:22 23:31 Temperature 98.0 F 98.0 F Pulse Rate 69 70 70 Pulse Rate [ Bilateral Throughout] Respiratory 18 18 Rate Respiratory Rate [Bilateral Throughout] Blood Pressure 135/46 136/45 144/48 O2 Sat by Pulse 100 99 Oximetry 06/01/19 06/02/19 06/02/19 23:32 00:01 00:15 Temperature 98.0 F 98.2 F 98.0 F Pulse Rate 70 72 71 Pulse Rate [ Bilateral Throughout] Respiratory 18 18 18 Rate Respiratory Rate [Bilateral Throughout] Blood Pressure 148/48 135/45 130/41 O2 Sat by Pulse Oximetry 06/02/19 06/02/19 06/02/19 00:21 00:34 00:36 Temperature 98.0 F 98.0 F 98.0 F Pulse Rate 73 71 74 Pulse Rate [ Bilateral Throughout] Respiratory 18 18 18 Rate Respiratory Rate [Bilateral Throughout] Blood Pressure 134/41 134/41 141/44 O2 Sat by Pulse 97 Oximetry 06/02/19 06/02/19 06/02/19 01:06 01:36 03:17 Temperature 98.2 F 98.0 F Pulse Rate 71 74 Pulse Rate [ 70 Bilateral Throughout] Respiratory 18 18 Rate Respiratory 18 Rate [Bilateral Throughout] Blood Pressure 135/48 131/41 O2 Sat by Pulse 95 Oximetry 06/02/19 06/02/19 04:54 10:35 Temperature 98.6 F Pulse Rate 79 79 Pulse Rate [ Bilateral Throughout] Respiratory 20 Rate Respiratory Rate [Bilateral Throughout] Blood Pressure 140/47 140/47 O2 Sat by Pulse 99 Oximetry Constitutional: no acute distress, alert Eyes: non-icteric ENT: oropharynx moist Neck: supple, no lymphadenopathy, no JVD Effort: mildly labored Ascultation: Bilateral: diminished breath sounds, rhonchi Percussion: Bilateral: not dull Cardiovascular: regular rate and rhythm Gastrointestinal: normoactive bowel sounds, soft, non-tender, non-distended Integumentary: normal Extremities: no cyanosis, no edema, pulses normal, no ischemia or petechiae Neurologic: normal mental status, non-focal exam, pupils equal and round, CN II- XII normal Psychiatric: mood appropriate, affect normal CBC and BMP: 06/01/19 07:10 05/30/19 Unknown ABG, PT/INR, D-dimer: ABG POC ABG pH 7.456 (7.35-7.45) H 05/25/19 23:07 POC ABG pCO2 36.7 (35-45) 05/25/19 23:07 POC ABG pO2 121 (80-105) H 05/25/19 23:07 POC ABG HCO3 25.9 (22-26 mml/L) 05/25/19 23:07 POC ABG Total CO2 27 (23-27mmol/L) 05/25/19 23:07 POC ABG O2 Sat 99 05/25/19 23:07 PT/INR, D-dimer PT 15.9 Sec. (12.2-14.9) H 05/30/19 Unknown INR 1.30 (0.87-1.13) H 05/30/19 Unknown 609.27 ng/mlDDU (0-234) H 05/25/19 20:15 Abnormal lab findings: Abnormal Labs 05/25/19 05/25/19 05/25/19 20:15 20:15 20:15 WBC 1.1 L* RBC 1.93 L Hgb 6.0 L Hct 18.2 L* RDW 22.6 H Plt Count 48 L Seg Neuts % (Manual) Lymphocytes % (Manual) Monocytes % (Manual) 19.0 H Eosinophils % (Manual) 7.0 H Basophils % (Manual) 3.0 H Nucleated RBC % Seg Neutrophils # Man 0.5 L Lymphocytes # (Manual) 0.3 L PT 18.1 H INR 1.54 H APTT 40.6 H D-Dimer 609.27 H POC ABG pH POC ABG pO2 Potassium BUN 19 H Glucose POC Glucose Calcium 8.3 L Total Bilirubin 1.40 H ALT < 5 L Total Creatine Kinase CK-MB (CK-2) Rel Index C-Reactive Protein NT-Pro-B Natriuret Pep Albumin 3.6 L Crossmatch 05/25/19 05/25/19 05/25/19 20:15 21:43 23:07 WBC RBC Hgb Hct RDW Plt Count Seg Neuts % (Manual) Lymphocytes % (Manual) Monocytes % (Manual) Eosinophils % (Manual) Basophils % (Manual) Nucleated RBC % Seg Neutrophils # Man Lymphocytes # (Manual) PT INR APTT D-Dimer POC ABG pH 7.456 H POC ABG pO2 121 H Potassium BUN Glucose POC Glucose Calcium Total Bilirubin ALT Total Creatine Kinase 17 L CK-MB (CK-2) Rel Index C-Reactive Protein NT-Pro-B Natriuret Pep 5267 H Albumin Crossmatch See Detail 05/26/19 05/26/19 05/26/19 04:50 04:50 06:20 WBC 1.1 L* RBC 2.16 L Hgb 6.6 L Hct 19.7 L* RDW 18.4 H Plt Count 40 L Seg Neuts % (Manual) Lymphocytes % (Manual) Monocytes % (Manual) 10.0 H Eosinophils % (Manual) Basophils % (Manual) Nucleated RBC % 3.0 H Seg Neutrophils # Man 0.6 L Lymphocytes # (Manual) 0.3 L PT INR APTT D-Dimer POC ABG pH POC ABG pO2 Potassium BUN Glucose POC Glucose 122 H Calcium Total Bilirubin ALT Total Creatine Kinase 8 L CK-MB (CK-2) Rel Index 12.5 H C-Reactive Protein NT-Pro-B Natriuret Pep Albumin Crossmatch 05/26/19 05/26/19 05/26/19 08:46 21:44 Unknown WBC RBC Hgb Hct RDW Plt Count Seg Neuts % (Manual) Lymphocytes % (Manual) Monocytes % (Manual) Eosinophils % (Manual) Basophils % (Manual) Nucleated RBC % Seg Neutrophils # Man Lymphocytes # (Manual) PT INR APTT D-Dimer POC ABG pH POC ABG pO2 Potassium BUN Glucose POC Glucose 161 H Calcium Total Bilirubin ALT Total Creatine Kinase < 7 L CK-MB (CK-2) Rel Index C-Reactive Protein 12.60 H NT-Pro-B Natriuret Pep Albumin Crossmatch 05/27/19 05/27/19 05/28/19 02:19 21:27 08:50 WBC RBC Hgb Hct RDW Plt Count Seg Neuts % (Manual) Lymphocytes % (Manual) Monocytes % (Manual) Eosinophils % (Manual) Basophils % (Manual) Nucleated RBC % Seg Neutrophils # Man Lymphocytes # (Manual) PT INR APTT D-Dimer POC ABG pH POC ABG pO2 Potassium BUN 21 H Glucose POC Glucose 126 H 116 H Calcium 7.9 L Total Bilirubin ALT Total Creatine Kinase CK-MB (CK-2) Rel Index C-Reactive Protein NT-Pro-B Natriuret Pep Albumin Crossmatch 05/28/19 05/28/19 05/28/19 09:32 12:26 22:10 WBC 4.0 L RBC 2.17 L Hgb 6.7 L Hct 20.1 L RDW 20.6 H Plt Count 14 L* Seg Neuts % (Manual) 74.0 H Lymphocytes % (Manual) Monocytes % (Manual) Eosinophils % (Manual) Basophils % (Manual) Nucleated RBC % Seg Neutrophils # Man Lymphocytes # (Manual) 0.8 L PT INR APTT D-Dimer POC ABG pH POC ABG pO2 Potassium BUN Glucose POC Glucose 120 H 131 H Calcium Total Bilirubin ALT Total Creatine Kinase CK-MB (CK-2) Rel Index C-Reactive Protein NT-Pro-B Natriuret Pep Albumin Crossmatch 05/29/19 05/29/19 05/29/19 07:49 08:49 11:55 WBC 3.2 L RBC 2.40 L Hgb 7.5 L Hct 22.1 L RDW 18.4 H Plt Count 11 L* Seg Neuts % (Manual) 72.0 H Lymphocytes % (Manual) 10.0 L Monocytes % (Manual) Eosinophils % (Manual) Basophils % (Manual) Nucleated RBC % Seg Neutrophils # Man Lymphocytes # (Manual) 0.3 L PT INR APTT D-Dimer POC ABG pH POC ABG pO2 Potassium BUN Glucose POC Glucose 121 H 106 H Calcium Total Bilirubin ALT Total Creatine Kinase CK-MB (CK-2) Rel Index C-Reactive Protein NT-Pro-B Natriuret Pep Albumin Crossmatch 05/29/19 05/29/19 05/30/19 17:51 20:49 07:53 WBC RBC Hgb Hct RDW Plt Count Seg Neuts % (Manual) Lymphocytes % (Manual) Monocytes % (Manual) Eosinophils % (Manual) Basophils % (Manual) Nucleated RBC % Seg Neutrophils # Man Lymphocytes # (Manual) PT INR APTT D-Dimer POC ABG pH POC ABG pO2 Potassium BUN Glucose POC Glucose 112 H 149 H 115 H Calcium Total Bilirubin ALT Total Creatine Kinase CK-MB (CK-2) Rel Index C-Reactive Protein NT-Pro-B Natriuret Pep Albumin Crossmatch 05/30/19 05/30/19 05/30/19 11:50 16:36 Unknown WBC 1.4 L* RBC 2.22 L Hgb 6.9 L Hct 20.4 L RDW 18.4 H Plt Count 7 L* Seg Neuts % (Manual) Lymphocytes % (Manual) Monocytes % (Manual) Eosinophils % (Manual) 9.0 H Basophils % (Manual) Nucleated RBC % Seg Neutrophils # Man 0.8 L Lymphocytes # (Manual) 0.3 L PT INR APTT D-Dimer POC ABG pH POC ABG pO2 Potassium BUN Glucose POC Glucose 118 H 358 H Calcium Total Bilirubin ALT Total Creatine Kinase CK-MB (CK-2) Rel Index C-Reactive Protein NT-Pro-B Natriuret Pep Albumin Crossmatch 05/30/19 05/30/19 05/31/19 Unknown Unknown 08:19 WBC RBC Hgb Hct RDW Plt Count Seg Neuts % (Manual) Lymphocytes % (Manual) Monocytes % (Manual) Eosinophils % (Manual) Basophils % (Manual) Nucleated RBC % Seg Neutrophils # Man Lymphocytes # (Manual) PT 15.9 H INR 1.30 H APTT D-Dimer POC ABG pH POC ABG pO2 Potassium 3.5 L BUN 23 H Glucose 111 H POC Glucose 107 H Calcium 8.0 L Total Bilirubin ALT < 5 L Total Creatine Kinase CK-MB (CK-2) Rel Index C-Reactive Protein NT-Pro-B Natriuret Pep Albumin 3.8 L Crossmatch 05/31/19 05/31/19 05/31/19 08:26 16:12 20:12 WBC 0.9 L* RBC 2.27 L Hgb 7.0 L Hct 20.9 L RDW 18.4 H Plt Count 12 L* Seg Neuts % (Manual) 32.0 L Lymphocytes % (Manual) Monocytes % (Manual) Eosinophils % (Manual) 25.0 H Basophils % (Manual) Nucleated RBC % Seg Neutrophils # Man 0.3 L Lymphocytes # (Manual) 0.3 L PT INR APTT D-Dimer POC ABG pH POC ABG pO2 Potassium BUN Glucose POC Glucose 225 H 107 H Calcium Total Bilirubin ALT Total Creatine Kinase CK-MB (CK-2) Rel Index C-Reactive Protein NT-Pro-B Natriuret Pep Albumin Crossmatch 06/01/19 06/01/19 06/01/19 07:10 07:24 17:24 WBC 0.8 L* RBC 2.24 L Hgb 7.0 L Hct 20.8 L RDW 18.2 H Plt Count 12 L* Seg Neuts % (Manual) 22.0 L Lymphocytes % (Manual) 47.0 H Monocytes % (Manual) 8.0 H Eosinophils % (Manual) 20.0 H Basophils % (Manual) Nucleated RBC % Seg Neutrophils # Man 0.2 L Lymphocytes # (Manual) 0.4 L PT INR APTT D-Dimer POC ABG pH POC ABG pO2 Potassium BUN Glucose POC Glucose 127 H 153 H Calcium Total Bilirubin ALT Total Creatine Kinase CK-MB (CK-2) Rel Index C-Reactive Protein NT-Pro-B Natriuret Pep Albumin Crossmatch 06/01/19 21:34 WBC RBC Hgb Hct RDW Plt Count Seg Neuts % (Manual) Lymphocytes % (Manual) Monocytes % (Manual) Eosinophils % (Manual) Basophils % (Manual) Nucleated RBC % Seg Neutrophils # Man Lymphocytes # (Manual) PT INR APTT D-Dimer POC ABG pH POC ABG pO2 Potassium BUN Glucose POC Glucose 121 H Calcium Total Bilirubin ALT Total Creatine Kinase CK-MB (CK-2) Rel Index C-Reactive Protein NT-Pro-B Natriuret Pep Albumin Crossmatch Allied health notes reviewed: nursing
== END 2019-06-02 13:59 | disposition home or self-care (01) | DRG 286 ==
LOC: ED 19:23 → CC1 22:30 → 4A 05-27 11:33
PROVIDERS: ADMIT Internal Medicine; ATTEND Internal Medicine
PROC: 4A033R1 Measurement of Arterial Saturation, Peripheral, Percutaneous Approach (ICD-10-PCS; principal; 2019-05-25)
PROC: 5A09357 Assistance with Respiratory Ventilation, Less than 24 Consecutive Hours, Continuous Positive Airway Pressure (ICD-10-PCS; 2019-05-25)
PROC: 30233N1 Transfusion of Nonautologous Red Blood Cells into Peripheral Vein, Percutaneous Approach (ICD-10-PCS; 2019-05-26)
PROC: 5A09357 Assistance with Respiratory Ventilation, Less than 24 Consecutive Hours, Continuous Positive Airway Pressure (ICD-10-PCS; 2019-05-26)
PROC: 3E0234Z Introduction of Serum, Toxoid and Vaccine into Muscle, Percutaneous Approach (ICD-10-PCS; 2019-05-27)
PROC: 30233R1 Transfusion of Nonautologous Platelets into Peripheral Vein, Percutaneous Approach (ICD-10-PCS; 2019-05-28)
PROC: 5A09357 Assistance with Respiratory Ventilation, Less than 24 Consecutive Hours, Continuous Positive Airway Pressure (ICD-10-PCS; 2019-05-28)
PROC: 5A09357 Assistance with Respiratory Ventilation, Less than 24 Consecutive Hours, Continuous Positive Airway Pressure (ICD-10-PCS; 2019-05-29)
PROC: 5A09357 Assistance with Respiratory Ventilation, Less than 24 Consecutive Hours, Continuous Positive Airway Pressure (ICD-10-PCS; 2019-05-30)
PROC: B2141ZZ Fluoroscopy of Right Heart using Low Osmolar Contrast (ICD-10-PCS; 2019-06-02)
PROC: 02H633Z Insertion of Infusion Device into Right Atrium, Percutaneous Approach (ICD-10-PCS; 2019-06-02)
PROC: B54NZZA Ultrasonography of Left Upper Extremity Veins, Guidance (ICD-10-PCS; 2019-06-02)
DX: I11.0 Hypertensive heart disease with heart failure (principal); I50.31 Acute diastolic (congestive) heart failure; J96.01 Acute respiratory failure with hypoxia; D61.818 Other pancytopenia; D69.6 Thrombocytopenia, unspecified; E80.6 Other disorders of bilirubin metabolism; E11.9 Type 2 diabetes mellitus without complications; D46.9 Myelodysplastic syndrome, unspecified; I27.20 Pulmonary hypertension, unspecified; Z23 Encounter for immunization; Z85.830 Personal history of malignant neoplasm of bone; Z90.49 Acquired absence of other specified parts of digestive tract; Z79.899 Other long term (current) drug therapy; Z82.49 Family history of ischemic heart disease and other diseases of the circulatory system; Z83.3 Family history of diabetes mellitus; Z86.14 Personal history of Methicillin resistant Staphylococcus aureus infection
CPT/HCPCS: 36415; 36569; 36600; 71045; 71275; 76937; 77001; 80048; 80053; 82140; 82550; 82553; 82803; 82962; 83735; 83880; 84443; 84484; 85007; 85025; 85027; 85379; 85610; 85730; 86140; 86850; 86900; 86901; 86920; 87040; 87070; 87205; 90732; 93005; 93010; 93306; 94640; 94660; 94760; G0378; C1751; J0692; J1447; J1644; J1815; J1940; J2250; J2405; J2543; J3010; J3370; J7040; J7050; P9035; P9040; Q9967

== ENCOUNTER 2019-06-29 17:40 | Inpatient (IN) | payer MEDICARE ==
--- NOTE | 2019-06-29 19:30 | Emergency Department Report ---
ED General Adult HPI - General Chief complaint: Chest Pain Stated complaint: CHEST PAIN Time Seen by Provider: 06/29/19 18:57 Source: EMS Mode of arrival: Stretcher Limitations: No Limitations - History of Present Illness Initial comments: The patient presents to the emergency department with a chief complaint of substernal chest pain that radiates into her left chest and left shoulder. Patient states her chest pain started at approximately 6 AM this morning and she did have relief with nitroglycerin given to her during her medical care today. Patient states that approximately 2-3 months ago she had a heart attack. Patient has a history of insulin-dependent diabetes and "bone cancer". -: Sudden Location: chest Radiation: extremity Severity scale (0 -10): 6 Quality: crushing Consistency: constant Improves with: medication Worsens with: none Associated Symptoms: denies other symptoms Treatments Prior to Arrival: none - Related Data Home Medications Medication Instructions Recorded Confirmed Last Taken Acetaminophen [Acetaminophen TAB] 500 mg PO Q6HR 05/26/19 06/06/19 06/05/19 Venlafaxine [Effexor] 75 mg PO BID 05/26/19 06/06/19 06/05/19 Previous Rx's Medication Instructions Recorded Last Taken Type Amlodipine Besylate [Norvasc] 5 mg PO DAILY #30 tablet 05/28/19 06/05/19 Rx HYDROcodone/APAP 5-325 [[place] 1 each PO Q6HR PRN #10 tablet 05/28/19 06/05/19 Rx 5-325 mg TAB] Loratadine [Claritin] 10 mg PO DAILY #30 tablet 05/28/19 06/05/19 Rx Metformin HCl [metFORMIN] 1,000 mg PO BID #60 tablet 05/28/19 06/05/19 Rx Metoprolol [Lopressor TAB] 25 mg PO BID #60 tablet 05/28/19 06/05/19 Rx Polyethylene Glycol 3350 [Miralax 17 gm PO QDAY #30 powd.pack 05/28/19 06/05/19 Rx 3350] Allergies Allergy/AdvReac Type Severity Reaction Status Date / Time No Known Allergies Allergy Verified 06/06/19 08:16 ED Review of Systems ROS: Stated complaint: CHEST PAIN Other details as noted in HPI Comment: All other systems reviewed and negative Constitutional: denies: chills, fever Eyes: denies: eye pain, eye discharge, vision change ENT: denies: ear pain, throat pain Respiratory: denies: cough, shortness of breath, wheezing Cardiovascular: chest pain. denies: palpitations Endocrine: no symptoms reported Gastrointestinal: denies: abdominal pain, nausea, diarrhea Genitourinary: denies: urgency, dysuria, discharge Musculoskeletal: denies: back pain, joint swelling, arthralgia Skin: denies: rash, lesions Neurological: denies: headache, weakness, paresthesias Psychiatric: denies: anxiety, depression Hematological/Lymphatic: denies: easy bleeding, easy bruising ED Past Medical Hx - Past Medical History Previous Medical History?: Yes Hx Hypertension: Yes Hx Heart Attack/AMI: Yes Hx Diabetes: Yes Additional medical history: Myelodysplastic syndrome - Surgical History Past Surgical History?: Yes Hx Cholecystectomy: Yes Additional Surgical History: Bone Cancer. PICC line in left upper arm - Social History Smoking Status: Unknown if ever smoked Substance Use Type: None - Medications Home Medications: Home Medications Medication Instructions Recorded Confirmed Last Taken Type Acetaminophen [Acetaminophen TAB] 500 mg PO Q6HR 05/26/19 06/06/19 06/05/19 History Venlafaxine [Effexor] 75 mg PO BID 05/26/19 06/06/19 06/05/19 History Amlodipine Besylate [Norvasc] 5 mg PO DAILY #30 tablet 05/28/19 06/06/19 06/05/19 Rx HYDROcodone/APAP 5-325 [[place] 1 each PO Q6HR PRN #10 tablet 05/28/19 06/06/19 06/05/19 Rx 5-325 mg TAB] Loratadine [Claritin] 10 mg PO DAILY #30 tablet 05/28/19 06/06/19 06/05/19 Rx Metformin HCl [metFORMIN] 1,000 mg PO BID #60 tablet 05/28/19 06/06/19 06/05/19 Rx Metoprolol [Lopressor TAB] 25 mg PO BID #60 tablet 05/28/19 06/06/19 06/05/19 Rx Polyethylene Glycol 3350 [Miralax 17 gm PO QDAY #30 powd.pack 05/28/19 06/06/19 06/05/19 Rx 3350] ED Physical Exam - General Limitations: No Limitations General appearance: alert, in no apparent distress - Head Head exam: Present: atraumatic, normocephalic - Eye Eye exam: Present: normal appearance, PERRL, EOMI - ENT ENT exam: Present: mucous membranes moist - Neck Neck exam: Present: normal inspection - Respiratory Respiratory exam: Present: normal lung sounds bilaterally. Absent: respiratory distress - Cardiovascular Cardiovascular Exam: Present: regular rate, normal rhythm. Absent: systolic murmur, diastolic murmur, rubs, gallop - GI/Abdominal GI/Abdominal exam: Present: soft, normal bowel sounds. Absent: distended, tenderness - Extremities Exam Extremities exam: Present: normal inspection - Back Exam Back exam: Present: normal inspection - Neurological Exam Neurological exam: Present: alert, oriented X3, CN II-XII intact. Absent: motor sensory deficit - Psychiatric Psychiatric exam: Present: normal affect, normal mood - Skin Skin exam: Present: warm, dry, intact, normal color. Absent: rash ED Course Vital Signs 06/29/19 06/29/19 06/29/19 18:45 19:52 19:53 Pulse Rate 66 66 Respiratory 18 15 19 Rate Blood Pressure Blood Pressure 124/42 [Left] O2 Sat by Pulse 100 96 Oximetry 06/29/19 06/29/19 06/29/19 19:54 19:56 19:58 Pulse Rate 64 65 63 Respiratory 19 18 16 Rate Blood Pressure Blood Pressure [Left] O2 Sat by Pulse 94 98 97 Oximetry 06/29/19 06/29/19 06/29/19 20:00 20:02 20:04 Pulse Rate 67 66 67 Respiratory 19 19 17 Rate Blood Pressure Blood Pressure [Left] O2 Sat by Pulse 98 98 97 Oximetry 06/29/19 06/29/19 06/29/19 20:06 20:08 20:10 Pulse Rate 68 67 68 Respiratory 20 20 12 Rate Blood Pressure Blood Pressure [Left] O2 Sat by Pulse 99 100 97 Oximetry 06/29/19 06/29/19 06/29/19 20:12 20:14 20:16 Pulse Rate 64 65 64 Respiratory 19 18 18 Rate Blood Pressure Blood Pressure [Left] O2 Sat by Pulse 97 98 98 Oximetry 06/29/19 06/29/19 06/29/19 20:18 20:20 20:22 Pulse Rate 66 62 64 Respiratory 20 19 20 Rate Blood Pressure Blood Pressure [Left] O2 Sat by Pulse 99 100 99 Oximetry 06/29/19 06/29/19 06/29/19 20:24 20:26 20:28 Pulse Rate 64 65 68 Respiratory 18 20 21 Rate Blood Pressure Blood Pressure [Left] O2 Sat by Pulse 98 99 100 Oximetry 06/29/19 06/29/19 06/29/19 20:30 20:32 20:34 Pulse Rate 64 64 67 Respiratory 18 18 19 Rate Blood Pressure Blood Pressure [Left] O2 Sat by Pulse 100 100 99 Oximetry 06/29/19 06/29/19 06/29/19 20:36 20:38 20:45 Pulse Rate 65 63 62 Respiratory 18 16 18 Rate Blood Pressure 138/51 Blood Pressure [Left] O2 Sat by Pulse 100 100 100 Oximetry 06/29/19 06/29/19 21:00 21:30 Pulse Rate 63 64 Respiratory 15 18 Rate Blood Pressure 122/45 135/50 Blood Pressure [Left] O2 Sat by Pulse 97 87 Oximetry ED Medical Decision Making - Lab Data Result diagrams: 06/29/19 19:19 06/29/19 06:35 Lab Results 06/29/19 06/29/19 06/29/19 Range/Units 06:35 19:19 19:29 WBC 0.8 L* (4.5-11.0) K/mm3 RBC 1.61 L (3.65-5.03) M/mm3 Hgb 4.9 L* (10.1-14.3) gm/dl Hct 15.0 L* (30.3-42.9) % MCV 93 (79-97) fl MCH 31 (28-32) pg MCHC 33 (30-34) % RDW 18.4 H (13.2-15.2) % Plt Count 27 L (140-440) K/mm3 Sodium 136 L (137-145) mmol/L Potassium 5.2 H (3.6-5.0) mmol/L Chloride 108.8 H (98-107) mmol/L Carbon Dioxide 18 L (22-30) mmol/L Anion Gap 14 mmol/L BUN 26 H (7-17) mg/dL Creatinine 0.8 (0.7-1.2) mg/dL Estimated GFR > 60 ml/min BUN/Creatinine Ratio 33 % Glucose 144 H (65-100) mg/dL Calcium 8.2 L (8.4-10.2) mg/dL Troponin T < 0.010 (0.00-0.029) ng/mL Lipase 16 (13-60) units/L - EKG Data -: EKG Interpreted by Me EKG shows normal: sinus rhythm Rate: normal - Radiology Data Radiology results: report reviewed - Medical Decision Making Results discussed with patient Critical care attestation.: If time is entered above; I have spent that time in minutes in the direct care of this critically ill patient, excluding procedure time. ED Disposition Clinical Impression: Chest pain Disposition: OP ADMIT IP TO THIS HOSP Is pt being admited?: Yes Does the pt Need Aspirin: Yes Condition: Fair Instructions: Chest Pain (ED)
[2019-06-29 19:35] LABS: Mean Corpuscular HGB Conc 33 % (30-34); Mean Corpuscular Volume 93 fl (79-97); Red Blood Count 1.61 M/mm3 (3.65-5.03); Red Cell Distribution Width 18.4 % (13.2-15.2)
--- NOTE | 2019-06-29 19:38 | XRay Report ---
CHEST 1 VIEW INDICATION / CLINICAL INFORMATION: Chest Pain. COMPARISON: 06/06/2019 FINDINGS: SUPPORT DEVICES: PICC line has been withdrawn. The PICC line is now projecting within the left subcla vian vein. HEART / MEDIASTINUM: Cardiac size remains mildly enlarged LUNGS / PLEURA: There is mild interstitial pulmonary edema. Pulmonary edema appears improved compared with the last chest radiograph of 06/06/2019 No pneumothorax. ADDITIONAL FINDINGS: No significant additional findings. IMPRESSION: 1. Mild cardiomegaly with mild interstitial pulmonary edema. 2. PICC line has been withdrawn since the most recent chest radiograph of 06/06/2019. The tip is proje cting over the thoracic spine and is most likely within the subclavian vein. Signer Name: Padma Kellogg MD Signed: 06/29/2019 7:34 PM Workstation Name: [id number]
[2019-06-29 19:41] LABS: Hemoglobin 4.9 gm/dl (10.1-14.3); Platelet Count 27 K/mm3 (140-440)
[2019-06-29 20:04] LABS: BUN/Creatinine Ratio 33; Blood Urea Nitrogen 26 mg/dL (7-17); Calcium 8.2 mg/dL (8.4-10.2); Hemolysis Index 6
[2019-06-29] MEDS ORDERED: NITROGLYCERIN 2% OINT 1 GM TP ONE (22:10)
[2019-06-29] MEDS ORDERED: SODIUM CHLORIDE 0.9% 500 ML 500 ML IV ONE (22:13)
[2019-06-29] MEDS ORDERED: DEXTROSE 50% IN WATER (25GM) 50 ML SYRINGE IV PRN (22:21)
[2019-06-29] MEDS ORDERED: ACETAMINOPHEN 325 MG TAB PO PRN (22:21)
[2019-06-29] MEDS ORDERED: ONDANSETRON 4 MG/2 ML INJ IV PRN (22:21)
[2019-06-29] MEDS ORDERED: MORPHINE 2 MG/1 ML INJ IV PRN (22:21)
[2019-06-29 22:22] LABS: Band Neutrophils # (Manual) 0.1 K/mm3; Eosinophils % (Manual) 0 % (0.0-4.3); Monocytes % (Manual) 0 % (0.0-7.3); Total Cells Counted 50
[2019-06-29 22:23] LABS: Anisocytosis 2+; Macrocytosis 1+; Platelet Estimate Consistent w Auto
--- NOTE | 2019-06-29 22:38 | History and Physical Report ---
History of Present Illness Date of examination: 06/29/19 Date of admission: 06/29/2019 Chief complaint: Chest Pain History of present illness: 78-year-old -[place] female with history of myelodyspastic syndrome, hypertension, diabetes, chronic anemia, pancytopenia, systolic heart failure with EF 40-45%, rectal bleed, hemorrhoids, and history of MRSA in the right index finger who presents to [facility] with complaints of chest pain. Patient states that she was sleeping in bed and suddenly awakened by pain under her left breast which then radiated to the mid chest then to right press. Her pain was accompanied by frontal headache and brief intermittent shortness of breath. Patient rates her pain 6/10 describes a has aching feeling. The pain and SOB improved with rest and patient went to her schedule chemotherapy appointment t caryn. However patient states that the pain returned later on in the day so she decided to come in for further evaluation and treatment. Denies: Nausea, vomiting, melena, hematochezia, fever, chills, or visual disturbances Past History Past Medical History: anemia (chronic), diabetes, heart failure, hypertension, other (myelodysplastic syndrome, hemorrhoids, rectal bleed, MRSA right index finger) Past Surgical History: cholecystectomy (PICC line in left upper arm) Social history: lives with family Family history: no significant family history Medications and Allergies Allergies Allergy/AdvReac Type Severity Reaction Status Date / Time No Known Allergies Allergy Verified 06/06/19 08:16 Home Medications Medication Instructions Recorded Confirmed Last Taken Type Acetaminophen [Acetaminophen TAB] 500 mg PO Q6HR 05/26/19 06/29/19 06/05/19 History Venlafaxine [Effexor] 75 mg PO BID 05/26/19 06/29/19 06/05/19 History Amlodipine Besylate [Norvasc] 5 mg PO DAILY #30 tablet 05/28/19 06/29/19 06/05/19 Rx HYDROcodone/APAP 5-325 [[place] 1 each PO Q6HR PRN #10 tablet 05/28/19 06/29/19 0 06/05/19 Rx 5-325 mg TAB] Loratadine [Claritin] 10 mg PO DAILY #30 tablet 05/28/19 06/29/19 06/05/19 Rx Metformin HCl [metFORMIN] 1,000 mg PO BID #60 tablet 05/28/19 06/29/19 06/05/19 Rx Metoprolol [Lopressor TAB] 25 mg PO BID #60 tablet 05/28/19 06/29/19 06/05/19 Rx Polyethylene Glycol 3350 [Miralax 17 gm PO QDAY #30 powd.pack 05/28/19 06/29/19 06/05/19 Rx 3350] Active Meds: Active Medications Acetaminophen (Tylenol) 650 mg PO Q4H PRN PRN Reason: Pain MILD(1-3)/Fever >100.5/[place] Dextrose (D50w (25gm) Syringe) 50 ml IV PRN PRN PRN Reason: Hypoglycemia Docusate Sodium (Colace) 100 mg PO BID [facility] Sodium Chloride (Nacl 0.9% 500 Ml) 500 mls @ 0 mls/hr IV ONCE ONE Stop: 06/29/19 22:14 Insulin Human Lispro (Humalog) 0 unit SUB-Q ACHS [facility]; Protocol Morphine Sulfate (Morphine) 2 mg IV Q4H PRN PRN Reason: Pain, Moderate (4-6) Nitroglycerin (Nitro-Bid 2%) 0.5 inch TP TIDNTG [facility]; Protocol Ondansetron HCl (Zofran) 4 mg IV Q6H PRN PRN Reason: Nausea And Vomiting Sodium Chloride (Sodium Chloride Flush Syringe 10 Ml) 10 ml IV BID [facility] Sodium Chloride (Sodium Chloride Flush Syringe 10 Ml) 10 ml IV PRN PRN PRN Reason: LINE FLUSH Review of Systems All systems: negative Cardiovascular: chest pain (originates under with radiation to right breast), dyspnea on exertion Neurological: headaches (frontal region) Exam - Physical Exam Narrative exam: Physical exam General appearance: Present: No acute distress, alert and oriented 3, chronically ill-appearing, pleasant, adult -[place] female - EENT Eyes: Present: PERRL, EOM intact, ENT: hearing intact, missing teeth - Neck Neck: Present: supple, normal ROM - Respiratory Respiratory effort: Non-labored Respiratory: Diminished bases - Cardiovascular Heart rate: 65 (bpm) Rhythm: SR Heart Sounds: Present: S1, S2 - Extremities Extremities: no ischemia, pulses intact, left upper extremity double-lumen PICC - Peripheral Assessment Peripheral Pulses: within normal limits - Abdominal General gastrointestinal: Soft, non-tender, normal bowel sounds - Integumentary Integumentary: Present: warm, dry, - Musculoskeletal Musculoskeletal: Able to move all extremities, generalized weakness -Neurological Neurological: CN II-XII grossly intact - Psychiatric Psychiatric: cooperative - Constitutional Vitals: Temp Pulse Resp BP Pulse Ox 64 18 135/50 87 06/29/19 21:30 06/29/19 21:30 06/29/19 21:30 06/29/19 21:30 Results - Labs CBC & Chem 7: 06/29/19 19:19 06/29/19 06:35 Labs: Laboratory Last Values WBC 0.8 K/mm3 (4.5-11.0) L* 06/29/19 19: RBC 1.61 M/mm3 (3.65-5.03) L 06/29/19 19: Hgb 4.9 gm/dl (10.1-14.3) L* 06/29/19 19: Hct 15.0 % (30.3-42.9) L* 06/29/19 19:19 MCV 93 fl (79-97) 06/29/19 19:19 MCH 31 pg (28-32) 06/29/19 19:19 MCHC 33 % (30-34) 06/29/19 19:19 RDW 18.4 % (13.2-15.2) H 06/29/19 19:19 Plt Count 27 K/mm3 (140-440) L 06/29/19 19:19 Add Manual Diff Complete 06/29/19 19:19 Total Counted 50 06/29/19 19: Seg Neuts % (Manual) 68.0 % (40.0-70.0) 06/29/19 19:19 Band Neutrophils % 10.0 % 06/29/19 19:19 Lymphocytes % (Manual) 18.0 % (13.4-35.0) 06/29/19 19:19 Reactive Lymphs % (Man) 0 % 06/29/19 19:19 Monocytes % (Manual) 0 % (0.0-7.3) 06/29/19 19:19 Eosinophils % (Manual) 0 % (0.0-4.3) 06/29/19 19:19 Basophils % (Manual) 2.0 % (0.0-1.8) H 06/29/19 19:19 Metamyelocytes % 0 % 06/29/19 19:19 Myelocytes % 2.0 % 06/29/19 19:19 Promyelocytes % 0 % 06/29/19 19:19 Blast Cells % 0 % 06/29/19 19:19 Nucleated RBC % Not Reportable 06/29/19 19:19 Seg Neutrophils # Man 0.5 K/mm3 (1.8-7.7) L 06/29/19 19:19 Band Neutrophils # 0.1 K/mm3 06/29/19 19:19 Lymphocytes # (Manual) 0.1 K/mm3 (1.2-5.4) L 06/29/19 19:19 Abs React Lymphs (Man) 0.0 K/mm3 06/29/19 19:19 Monocytes # (Manual) 0.0 K/mm3 (0.0-0.8) 06/29/19 19:19 Eosinophils # (Manual) 0.0 K/mm3 (0.0-0.4) 06/29/19 19:19 Basophils # (Manual) 0.0 K/mm3 (0.0-0.1) 06/29/19 19:19 Metamyelocytes # 0.0 K/mm3 06/29/19 19:19 Myelocytes # 0.0 K/mm3 06/29/19 19:19 Promyelocytes # 0.0 K/mm3 06/29/19 19:19 Blast Cells # 0.0 K/mm3 06/29/19 19:19 WBC Morphology Not Reportable 06/29/19 19:19 Hypersegmented Neuts Not Reportable 06/29/19 19:19 Hyposegmented Neuts Not Reportable 06/29/19 19:19 Hypogranular Neuts Not Reportable 06/29/19 19:19 Smudge Cells Not Reportable 06/29/19 19:19 Toxic Granulation Not Reportable 06/29/19 19:19 Toxic Vacuolation Not Reportable 06/29/19 19:19 Dohle Bodies Not Reportable 06/29/19 19:19 Pelger-Huet Anomaly Not Reportable 06/29/19 19:19 Pao Rods Not Reportable 06/29/19 19:19 Platelet Estimate Consistent w auto 06/29/19 19:19 Clumped Platelets Not Reportable 06/29/19 19:19 Plt Clumps, EDTA Not Reportable 06/29/19 19:19 Large Platelets Not Reportable 06/29/19 19:19 Giant Platelets Not Reportable 06/29/19 19:19 Platelet Satelliting Not Reportable 06/29/19 19:19 Plt Morphology Comment Not Reportable 06/29/19 19:19 RBC Morphology Not Reportable 06/29/19 19:19 Dimorphic RBCs Not Reportable 06/29/19 19:19 Polychromasia Not Reportable 06/29/19 19:19 Hypochromasia Not Reportable 06/29/19 19:19 Poikilocytosis Not Reportable 06/29/19 19:19 Anisocytosis 2+ 06/29/19 19:19 Microcytosis Not Reportable 06/29/19 19:19 Macrocytosis 1+ 06/29/19 19:19 Spherocytes Not Reportable 06/29/19 19:19 Pappenheimer Bodies Not Reportable 06/29/19 19:19 Sickle Cells Not Reportable 06/29/19 19:19 Target Cells Not Reportable 06/29/19 19:19 Tear Drop Cells Not Reportable 06/29/19 19:19 Ovalocytes Not Reportable 06/29/19 19:19 Helmet Cells Not Reportable 06/29/19 19:19 [place] Bodies Not Reportable 06/29/19 19:19 [place] Rings Not Reportable 06/29/19 19:19 Manuel Cells Not Reportable 06/29/19 19:19 Bite Cells Not Reportable 06/29/19 19:19 Crenated Cell Not Reportable 06/29/19 19:19 Elliptocytes Few 06/29/19 19:19 Acanthocytes (Spur) Not Reportable 06/29/19 19:19 Rouleaux Not Reportable 06/29/19 19:19 Hemoglobin C Crystals Not Reportable 06/29/19 19:19 Schistocytes Not Reportable 06/29/19 19:19 Malaria parasites Not Reportable 06/29/19 19:19 Chung Bodies Not Reportable 06/29/19 19:19 Hem Pathologist Commnt No 06/29/19 19:19 Sodium 136 mmol/L (137-145) L 06/29/19 06:35 Potassium 5.2 mmol/L (3.6-5.0) H 06/29/19 06:35 Chloride 108.8 mmol/L (98-107) H 06/29/19 06:35 Carbon Dioxide 18 mmol/L (22-30) L 06/29/19 06:35 Anion Gap 14 mmol/L 06/29/19 06:35 BUN 26 mg/dL (7-17) H 06/29/19 06:35 Creatinine 0.8 mg/dL (0.7-1.2) 06/29/19 06:35 Estimated GFR > 60 ml/min 06/29/19 06:35 BUN/Creatinine Ratio 33 % 06/29/19 06:35 Glucose 144 mg/dL (65-100) H 06/29/19 06:35 Calcium 8.2 mg/dL (8.4-10.2) L 06/29/19 06:35 Troponin T < 0.010 ng/mL (0.00-0.029) 06/29/19 06:35 Lipase 16 units/L (13-60) 06/29/19 19:29 - Imaging and Cardiology Imaging and Cardiology: CXR: SUPPORT DEVICES: PICC line has been withdrawn. The PICC line is now projecting within the left subclavian vein. HEART / MEDIASTINUM: Cardiac size remains mildly enlarged LUNGS / PLEURA: There is mild interstitial pulmonary edema. Pulmonary edema appears improved compared with the last chest radiograph of 06/06/2019 No pneumothorax. ADDITIONAL FINDINGS: No significant additional findings. IMPRESSION: 1. Mild cardiomegaly with mild interstitial pulmonary edema. 2. PICC line has been withdrawn since the most recent chest radiograph of 06/06/2019. The tip is projecting over the thoracic spine and is most likely within the subclavian vein. Assessment and Plan Assessment and plan: 78-year-old -[place] female with history of myelodyspastic syndrome, hypertension, diabetes, chronic anemia, pancytopenia, systolic heart failure with EF 40-45%, rectal bleed, hemorrhoids, and history of MRSA in the right index finger who presents to [facility] ED with complaints of intermittent chest pain. Acute Chest Pain -Likely secondary to severe anemia -Initiate chest pain protocol -Continuous telemetry monitoring -Continue supportive care -Pain mgmt -Troponin negative x 2, will continue to trend -EKG unrevealing for acute ischemic abnormalities -Cardiology consulted Systolic heart failure -EF 40%-45% seen on Echo on 05/26/19 -BNP 3753 -Cardiology consulted Pancytopenia -likely secondary to myelodyspastic syndrome -Received chemo earlier today -Initiate neutropenic precautions -Hematology consult Chronic Anemia -hgb 4.9 -Will transfuse 2u PRBC -No s/s of active bleeding DM2 -POC BG monitoring -Continue Metformin -SSI coverage prn HTN -Monitor BP -Resume home antihypertensive meds Hyperkalemia -mild potassium on admission 5.2 -Will receive 2u PRBC DVT PPX -on SCD's -hold systemic AC d/t severe anemia Advance Directives: No VTE prophylaxis?: Mechanical Plan of care discussed with patient/family: Yes
[2019-06-29] MEDS ORDERED: SODIUM CHLORIDE 0.9% 1000 ML 1,000 ML ONE (22:42)
[2019-06-29] MEDS ORDERED: HYDROcodone/ACETAMINOPHEN 5-325 MG TAB PO PRN (23:18)
--- NOTE | 2019-06-29 23:22 | Event Note ---
78-year-old woman with history of MDS with severe chronic pancytopenia. Follows up as an outpatient with Dr. Gonsales, she has been on decitabine and has only been able to tolerate 2 rx due to pancytopenia (per Dr. Gonsales she will need at least 4 cycles to see if there is any response). She also has a history of GI bleed due to hemorrhoids, diabetes, was treated for right index finger MRSA abscess in April. She presents to the hospital now complaining of left-sided chest pain radiating to her left shoulder. She has known history of systolic CHF with EF of 45%, follows with [facility] -She reported history of heart attack which occurred 2 to 3 months ago, however that was not documented in [facility] recent notes chest x-ray; 1. Mild cardiomegaly with mild interstitial pulmonary edema. 2. PICC line has been withdrawn since the most recent chest radiograph of 06/06/2019. The tip is projecting over the thoracic spine and is most likely within the subclavian vein. Labs reviewed, neutropenia noted, white count 0.8, ANC 500, hemoglobin 4.9, platelet count 27 Sodium 136, potassium 5.2, CO2 18 Chest pain Most likely due to profound anemia, blood transfusion, cardiology consult Pancytopenia This has been the persistent presentation of her severe MDS. Neutropenic precautions, hematology consult prbc ordered x2 Sirs Likely due to anemia, check UA Hyperkalemia, mild To receive blood products, will monitor Metabolic acidosis Likely due to anemia, transfuse chronic Systolic CHF, ef 45% stable, euvolemic Malpositioned PICC line PICC line team consult to replace PICC line in proper position. DVT prophylaxis SCDs in light of anemia and thrombocytopenia
[2019-06-30] MEDS ORDERED: ASPIRIN 325 MG TAB PO ONE (01:00)
[2019-06-30 05:19] LABS: Mean Corpuscular HGB Conc 33 % (30-34); Mean Corpuscular Volume 92 fl (79-97); Red Blood Count 1.56 M/mm3 (3.65-5.03); Red Cell Distribution Width 17.8 % (13.2-15.2)
[2019-06-30 05:42] LABS: BUN/Creatinine Ratio 34; Blood Urea Nitrogen 27 mg/dL (7-17); Calcium 8.6 mg/dL (8.4-10.2); Hemolysis Index 4
[2019-06-30 05:58] LABS: Hematocrit 14.4 % (30.3-42.9); Hemoglobin 4.8 gm/dl (10.1-14.3); Platelet Count 25 K/mm3 (140-440)
[2019-06-30] MEDS: NITROGLYCERIN 2% OINT 1 GM TP SCH ×2 (06:45→13:00)
--- NOTE | 2019-06-30 07:17 | Event Note ---
Date: 06/30/19 [id number]
[2019-06-30] MEDS: INSULIN LISPRO 100 UNIT/ML SUB-Q SCH ×3 (08:00→23:23)
[2019-06-30] MEDS: metFORMIN 500 MG TAB PO SCH ×2 (08:00→17:00)
[2019-06-30] MEDS ORDERED: SODIUM CHLORIDE 0.9% 500 ML IVPB IV NR (09:30)
[2019-06-30] MEDS ORDERED: SODIUM CHLORIDE 0.9% 500 ML 500 ML IV NR (09:30)
--- NOTE | 2019-06-30 09:30 | Consultation ---
History of Present Illness - Reason for Consult Consult date: 06/30/19 PICC line pullback - History of Present Illness Patient with a history of myelodysplastic syndrome who previously had a PICC line placed in May 2019. An outpatient setting, the patient's PICC line has been pullback somewhat resulting in the tip positioned in the subclavian vein. Past History Past Medical History: anemia (chronic), diabetes, heart failure, hypertension, other (myelodysplastic syndrome, hemorrhoids, rectal bleed, MRSA right index finger) Past Surgical History: cholecystectomy (PICC line in left upper arm) Social history: lives with family Family history: no significant family history Medications and Allergies Allergies Allergy/AdvReac Type Severity Reaction Status Date / Time No Known Allergies Allergy Verified 06/06/19 08:16 Home Medications Medication Instructions Recorded Confirmed Last Taken Type Acetaminophen [Acetaminophen TAB] 500 mg PO Q6HR 05/26/19 06/29/19 06/05/19 History Venlafaxine [Effexor] 75 mg PO BID 05/26/19 06/29/19 06/05/19 History Amlodipine Besylate [Norvasc] 5 mg PO DAILY #30 tablet 05/28/19 06/29/19 06/05/19 Rx HYDROcodone/APAP 5-325 [[place] 1 each PO Q6HR PRN #10 tablet 05/28/19 06/29/19 06/05/19 Rx 5-325 mg TAB] Loratadine [Claritin] 10 mg PO DAILY #30 tablet 05/28/19 06/29/19 06/05/19 Rx Metformin HCl [metFORMIN] 1,000 mg PO BID #60 tablet 05/28/19 06/29/19 06/05/19 Rx Metoprolol [Lopressor TAB] 25 mg PO BID #60 tablet 05/28/19 06/29/19 06/05/19 Rx Polyethylene Glycol 3350 [Miralax 17 gm PO QDAY #30 powd.pack 05/28/19 06/29/19 06/05/19 Rx 3350] Active Meds: Active Medications Acetaminophen (Tylenol) 650 mg PO Q4H PRN PRN Reason: Pain MILD(1-3)/Fever >100.5/COLUNGA Acetaminophen/Hydrocodone Bitart ([place] 5/325) 1 each PO Q6H PRN PRN Reason: PAIN(4-6) Amlodipine Besylate (Norvasc) 5 mg PO DAILY [facility] Dextrose (D50w (25gm) Syringe) 50 ml IV PRN PRN PRN Reason: Hypoglycemia Docusate Sodium (Colace) 100 mg PO BID [facility] Furosemide (Lasix) 20 mg IV BID [facility] Sodium Chloride (Nacl 0.9% 500 Ml) 500 mls @ 0 mls/hr IV ONCE NR Stop: 06/30/19 18:00 Insulin Human Lispro (Humalog) 0 unit SUB-Q ACHS [facility]; Protocol Loratadine (Claritin) 10 mg PO DAILY [facility] Metformin HCl (Glucophage) 1,000 mg PO BIDDIAB [facility] Metoprolol Tartrate (Lopressor) 25 mg PO BID [facility] Morphine Sulfate (Morphine) 2 mg IV Q4H PRN PRN Reason: Pain, (7-10) Nitroglycerin (Nitro-Bid 2%) 0.5 inch TP TIDNTG [facility]; Protocol Last Admin: 06/30/19 06:45 Dose: Not Given Documented by: Ondansetron HCl (Zofran) 4 mg IV Q6H PRN PRN Reason: Nausea And Vomiting Polyethylene Glycol (Miralax 3350) 17 gm PO QDAY [facility] Sodium Chloride (Sodium Chloride Flush Syringe 10 Ml) 10 ml IV BID [facility] Sodium Chloride (Sodium Chloride Flush Syringe 10 Ml) 10 ml IV PRN PRN PRN Reason: LINE FLUSH Venlafaxine HCl (Effexor) 75 mg PO BID [facility] Review of Systems All systems: negative Exam - Constitutional Vitals: Temp Pulse Resp BP Pulse Ox 97.7 F 60 20 159/55 100 06/30/19 07:26 06/30/19 07:04 06/30/19 06:52 06/30/19 07:04 06/30/19 07:04 General appearance: Present: no acute distress - EENT Eyes: Present: EOM intact ENT: hearing intact - Neck Neck: Present: supple, normal ROM - Respiratory Respiratory effort: normal - Abdominal General gastrointestinal: Present: deferred Female genitourinary: Present: deferred - Rectal Rectal Exam: deferred - Psychiatric Psychiatric: appropriate mood/affect, cooperative Results - Labs CBC & Chem 7: 06/30/19 04:06 06/30/19 04:06 Labs: Abnormal lab results 06/29/19 06/29/19 06/29/19 Range/Units 06:35 19:19 22:29 WBC 0.8 L* (4.5-11.0) K/mm3 RBC 1.61 L (3.65-5.03) M/mm3 Hgb 4.9 L* (10.1-14.3) gm/dl Hct 15.0 L* (30.3-42.9) % RDW 18.4 H (13.2-15.2) % Plt Count 27 L (140-440) K/mm3 Basophils % (Manual) 2.0 H (0.0-1.8) % Seg Neutrophils # Man 0.5 L (1.8-7.7) K/mm3 Lymphocytes # (Manual) 0.1 L (1.2-5.4) K/mm3 Sodium 136 L (137-145) mmol/L Potassium 5.2 H (3.6-5.0) mmol/L Chloride 108.8 H (98-107) mmol/L Carbon Dioxide 18 L (22-30) mmol/L BUN 26 H (7-17) mg/dL Glucose 144 H (65-100) mg/dL POC Glucose (70-105) Calcium 8.2 L (8.4-10.2) mg/dL NT-Pro-B Natriuret Pep 3753 H (0-900) pg/mL Crossmatch 06/29/19 06/30/19 06/30/19 Range/Units 22:35 04:06 04:06 WBC 0.8 L* (4.5-11.0) K/mm3 RBC 1.56 L (3.65-5.03) M/mm3 Hgb 4.8 L* (10.1-14.3) gm/dl Hct 14.4 L* (30.3-42.9) % RDW 17.8 H (13.2-15.2) % Plt Count 25 L (140-440) K/mm3 Basophils % (Manual) (0.0-1.8) % Seg Neutrophils # Man (1.8-7.7) K/mm3 Lymphocytes # (Manual) (1.2-5.4) K/mm3 Sodium (137-145) mmol/L Potassium (3.6-5.0) mmol/L Chloride 110.7 H (98-107) mmol/L Carbon Dioxide 18 L (22-30) mmol/L BUN 27 H (7-17) mg/dL Glucose 106 H (65-100) mg/dL POC Glucose (70-105) Calcium (8.4-10.2) mg/dL NT-Pro-B Natriuret Pep (0-900) pg/mL Crossmatch See Detail 06/30/19 Range/Units 07:30 WBC (4.5-11.0) K/mm3 RBC (3.65-5.03) M/mm3 Hgb (10.1-14.3) gm/dl Hct (30.3-42.9) % RDW (13.2-15.2) % Plt Count (140-440) K/mm3 Basophils % (Manual) (0.0-1.8) % Seg Neutrophils # Man (1.8-7.7) K/mm3 Lymphocytes # (Manual) (1.2-5.4) K/mm3 Sodium (137-145) mmol/L Potassium (3.6-5.0) mmol/L Chloride (98-107) mmol/L Carbon Dioxide (22-30) mmol/L BUN (7-17) mg/dL Glucose (65-100) mg/dL POC Glucose 119 H (70-105) Calcium (8.4-10.2) mg/dL NT-Pro-B Natriuret Pep (0-900) pg/mL Crossmatch - Imaging and Cardiology Chest x-ray: image reviewed Assessment and Plan Patient will be brought to the cardiac [employer] for exchange of her PICC line over a guidewire.
[2019-06-30] MEDS ORDERED: LIDOCAINE (2%) 20 MG/1 ML VIAL 20 ML MDV INFILTRATI ONE (09:39)
[2019-06-30] MEDS ORDERED: HEPARIN 10,000 UNITS/10 ML VIAL ONE (09:39)
[2019-06-30] MEDS ORDERED: HEPARIN/NS 5000 UNIT/500ML 500 ML IR ONE (09:39)
[2019-06-30 09:47] LABS: Bacteria,Urine 1+ /HPF (Negative); Bilirubin,Urine NEG (Negative); Blood,Urine NEG (Negative); Color,Urine Yellow (Yellow); Protein,Urine <15 mg/dL mg/dL (Negative); Urobilinogen,Urine < 2.0 mg/dL (<2.0)
--- NOTE | 2019-06-30 10:27 | Operative Report ---
Operative Report Operative Report: Exam: Fluoroscopic guided placement of PICC line Clinical indication: Patient with PICC line retracted in the outpatient setting, tip and subclavian Date: 06/30/2019 Procedure: Following an explanation of the risks, benefits and alternatives; written informed was obtained. The patient was brought to the angiographic suite and placed in supine position on the examination table. Initial fluoroscopic images demonstrated the tip of the PICC line in the subclavian vein. The catheter exit site demonstrates no erythema or exudates. Under fluoroscopic guidance, a 0.018 guidewire was advanced through the indwelling PICC to the right hepatic vein. The indwelling PICC was removed. A new dual-lumen power PICC was then advanced over the guidewire and position with the tip in the proximal right atrium. Both ports flushed and aspirated easily and were then locked with sterile saline. The catheter was securely fastened skin surface using a StatLock device and a sterile dressing applied. Patient tolerated the procedure well. There were no immediate post procedure complications. No sedation was utilized. Continuous cardiopulmonary monitoring was utilized. Impression: Fluoroscopic guided exchange of PICC line
[2019-06-30 11:08] LABS: Band Neutrophils # (Manual) 0.3 K/mm3; Basophils % (Manual) 0 % (0.0-1.8); Total Cells Counted 100
[2019-06-30 11:10] LABS: Anisocytosis 2+; Hypochromasia Few; Macrocytosis 1+; Platelet Estimate Consistent w Auto
[2019-06-30] MEDS: POLYETHYLENE GLYCOL 3350 17 GM POWDER PO SCH (11:11)
[2019-06-30] MEDS: LORATADINE (NF) 10 MG TAB PO SCH (11:12)
[2019-06-30] MEDS: VENLAFAXINE 75 MG TAB PO SCH ×2 (11:12→23:07)
[2019-06-30] MEDS: DOCUSATE SODIUM 100 MG CAP PO SCH ×2 (11:12→23:08)
[2019-06-30] MEDS: FUROSEMIDE 40 MG/4 ML INJ IV SCH ×2 (11:13→23:08)
[2019-06-30] MEDS: METOPROLOL TARTRATE 25 MG TAB PO SCH ×2 (11:14→23:08)
[2019-06-30] MEDS: amLODIPine 5 MG TAB PO SCH (11:15)
--- NOTE | 2019-06-30 12:35 | Consultation ---
History of Present Illness Consult date: 06/30/19 Requesting physician: DOLORES DELUCA Consult reason: chest pain History of present illness: The patient has a history of myelodysplastic syndrome and chronic pancytopenia. She claims that she has been experiencing intermittent exertional substernal chest pain for the past 3 months. She claims that chest pain often occurs when she lifts heavy objects. Yesterday morning, she woke up with substernal chest pain. She then went to see her doctor as part of follow-up while receiving cyles of Decitabine. She claims that after labs were obtained, she was sent to the ER for admission and transfusion. She claims that after the labs were drawn, she started experiencing dizziness. She denies dyspnea or orthopnea. Echocardiogram obtained in May 2019 revealed an ejection fraction of 45- 50%. Past History Past Medical History: anemia (chronic), diabetes, heart failure (acute heart failure secondary to severe anemia in the past), hypertension, other (myelodysplastic syndrome, hemorrhoids, rectal bleed, MRSA right index finger, chronic pancytopenia) Past Surgical History: cholecystectomy (PICC line in left upper arm) Social history: denies: smoking, alcohol abuse Family history: CAD Medications and Allergies Allergies Allergy/AdvReac Type Severity Reaction Status Date / Time No Known Allergies Allergy Verified 06/06/19 08:16 Home Medications Medication Instructions Recorded Confirmed Last Taken Type Acetaminophen [Acetaminophen TAB] 500 mg PO Q6HR 05/26/19 06/29/19 06/05/19 History Venlafaxine [Effexor] 75 mg PO BID 05/26/19 06/29/19 06/05/19 History Amlodipine Besylate [Norvasc] 5 mg PO DAILY #30 tablet 05/28/19 06/29/19 06/05/19 Rx HYDROcodone/APAP 5-325 [[place] 1 each PO Q6HR PRN #10 tablet 05/28/19 06/29/19 06/05/19 Rx 5-325 mg TAB] Loratadine [Claritin] 10 mg PO DAILY #30 tablet 05/28/19 06/29/19 06/05/19 Rx Metformin HCl [metFORMIN] 1,000 mg PO BID #60 tablet 05/28/19 06/29/19 06/05/19 Rx Metoprolol [Lopressor TAB] 25 mg PO BID #60 tablet 05/28/19 06/29/19 06/05/19 Rx Polyethylene Glycol 3350 [Miralax 17 gm PO QDAY #30 powd.pack 05/28/19 06/29/19 06/05/19 Rx 3350] Active Meds: Active Medications Acetaminophen (Tylenol) 650 mg PO Q4H PRN PRN Reason: Pain MILD(1-3)/Fever >100.5/COLUNGA Acetaminophen/Hydrocodone Bitart ([place] 5/325) 1 each PO Q6H PRN PRN Reason: PAIN(4-6) Amlodipine Besylate (Norvasc) 5 mg PO DAILY [facility] Last Admin: 06/30/19 11:15 Dose: 5 mg Documented by: Dextrose (D50w (25gm) Syringe) 50 ml IV PRN PRN PRN Reason: Hypoglycemia Docusate Sodium (Colace) 100 mg PO BID [facility] Last Admin: 06/30/19 11:12 Dose: 100 mg Documented by: Furosemide (Lasix) 20 mg IV BID [facility] Last Admin: 06/30/19 11:13 Dose: 20 mg Documented by: Sodium Chloride (Nacl 0.9% 500 Ml) 500 mls @ 0 mls/hr IV ONCE NR Stop: 06/30/19 18:00 Insulin Human Lispro (Humalog) 0 unit SUB-Q ACHS [facility]; Protocol Last Admin: 06/30/19 08:00 Dose: Not Given Documented by: Loratadine (Claritin) 10 mg PO DAILY [facility] Last Admin: 06/30/19 11:12 Dose: 10 mg Documented by: Metformin HCl (Glucophage) 1,000 mg PO BIDDIAB [facility] Last Admin: 06/30/19 08:00 Dose: 1,000 mg Documented by: Metoprolol Tartrate (Lopressor) 25 mg PO BID [facility] Last Admin: 06/30/19 11:14 Dose: 25 mg Documented by: Morphine Sulfate (Morphine) 2 mg IV Q4H PRN PRN Reason: Pain, (7-10) Nitroglycerin (Nitro-Bid 2%) 0.5 inch TP TIDNTG [facility]; Protocol Last Admin: 06/30/19 06:45 Dose: Not Given Documented by: Ondansetron HCl (Zofran) 4 mg IV Q6H PRN PRN Reason: Nausea And Vomiting Polyethylene Glycol (Miralax 3350) 17 gm PO QDAY [facility] Last Admin: 06/30/19 11:11 Dose: 17 gm Documented by: Sodium Chloride (Sodium Chloride Flush Syringe 10 Ml) 10 ml IV BID [facility] Last Admin: 06/30/19 11:23 Dose: 10 ml Documented by: Sodium Chloride (Sodium Chloride Flush Syringe 10 Ml) 10 ml IV PRN PRN PRN Reason: LINE FLUSH Venlafaxine HCl (Effexor) 75 mg PO BID [facility] Last Admin: 06/30/19 11:12 Dose: 75 mg Documented by: Review of Systems Constitutional: weakness, no fever, no chills Ears, nose, mouth and throat: no ear pain, no ear discharge, no sore throat Cardiovascular: chest pain, edema, lightheadedness, no orthopnea, no palpitations Respiratory: no cough, no hemoptysis, no shortness of breath Gastrointestinal: no abdominal pain, no nausea, no vomiting, no diarrhea, no constipation Genitourinary Female: no dysuria, no urinary frequency Rectal: no pain, no bleeding Musculoskeletal: no neck stiffness, no neck pain, no myalgias Integumentary: no rash, no pruritis Neurological: no weakness, no parathesias, no headaches Endocrine: no cold intolerance, no heat intolerance Hematologic/Lymphatic: no easy bruising Allergic/Immunologic: no urticaria, no wheezing Physical Examination Vital Signs Last Vital Signs Temp 97.9 F 06/30/19 12:18 Pulse 60 06/30/19 12:18 Resp 15 06/30/19 12:18 BP 141/51 06/30/19 12:18 Pulse Ox 99 06/30/19 12:18 General appearance: no acute distress HEENT: Positive: EOMI, Pallor, Normocephaly, Mucus Membranes Moist Neck: Positive: neck supple, trachea midline Cardiac: Positive: Reg Rate and Rhythm, S1/S2 Lungs: Positive: clear to auscultation Neuro: Positive: Grossly Intact Abdomen: Positive: Soft, Active Bowel Sounds. Negative: Tender Skin: Positive: Clear. Negative: Rash Extremities: Present: normal. Absent: edema Results 06/30/19 04:06 06/30/19 04:06 CBC 06/29/19 06/30/19 Range/Units 19:19 04:06 WBC 0.8 L* 0.8 L* (4.5-11.0) K/mm3 RBC 1.61 L 1.56 L (3.65-5.03) M/mm3 Hgb 4.9 L* 4.8 L* (10.1-14.3) gm/dl Hct 15.0 L* 14.4 L* (30.3-42.9) % Plt Count 27 L 25 L (140-440) K/mm3 Comprehensive Metabolic Panel 06/29/19 06/30/19 Range/Units 06:35 04:06 Sodium 136 L 140 (137-145) mmol/L Potassium 5.2 H 4.8 (3.6-5.0) mmol/L Chloride 108.8 H 110.7 H (98-107) mmol/L Carbon Dioxide 18 L 18 L (22-30) mmol/L BUN 26 H 27 H (7-17) mg/dL Creatinine 0.8 0.8 (0.7-1.2) mg/dL Glucose 144 H 106 H (65-100) mg/dL Calcium 8.2 L 8.6 (8.4-10.2) mg/dL - Imaging and Cardiology EKG: image reviewed EKG interpretations - Telemetry EKG Rhythm: Sinus Rhythm - EKG Sinus rhythms and dysrhythmias: sinus rhythm Assessment and Plan Based on her exertional chest pain, she may have demand related angina from severe anemia. She does not appear to be a candidate for invasive cardiac management. PRBC transfusion will be crucial to her management. Anti-ischemic regimen, including oral nitrates if tolerated. I will add intermittent diuretic therapy with her multiple units of PRBC transfusion. - Patient Problems (1) Chest pain Current Visit: Yes Status: Acute (2) Symptomatic anemia Current Visit: Yes Status: Acute (3) Myelodysplastic syndrome Current Visit: Yes Status: Chronic (4) Pancytopenia Current Visit: Yes Status: Chronic (5) HTN (hypertension) Current Visit: Yes Status: Chronic (6) Pulmonary hypertension Current Visit: Yes Status: Chronic (7) Diabetes Current Visit: Yes Status: Chronic Qualifiers: Diabetes mellitus type: type 2
[2019-06-30 16:22] LABS: Hematocrit 23.8 % (30.3-42.9); Hemoglobin 7.8 gm/dl (10.1-14.3); Mean Corpuscular HGB Conc 33 % (30-34); Mean Corpuscular Volume 90 fl (79-97); Red Blood Count 2.65 M/mm3 (3.65-5.03); Red Cell Distribution Width 17.3 % (13.2-15.2)
[2019-06-30 16:24] LABS: Platelet Count 27 K/mm3 (140-440)
--- NOTE | 2019-06-30 17:13 | Progress Note ---
Assessment and Plan Assessment and plan: 78-year-old woman with history of MDS with severe chronic pancytopenia. Follows with [facility]/onc Dr. Gonsales,on decitabine and has only been able to tolerate 2 rx (second cycle was today on 06/29) due to pancytopenia (per Dr. Gonsales she will need at least 4 cycles to see if there is any response). She also has a history of GI bleed due to hemorrhoids, diabetes, was treated for right index finger MRSA abscess in April. She presents to the hospital now complaining of left- sided chest pain radiating to her left shoulder. She has known history of systolic CHF with EF of 45%, follows with [facility] Initial workup was consistent with pancytopenia with severe anemia, received 2 units of PRBC today --Pancytopenia; secondary to myelodysplastic syndrome 2 units of PRBC transfusion Monitor H&H,platelets and transfuse as needed hematology --Myelodysplastic syndrome; management per hematology following, --Hypertension; moderate control continue current antihypertensives PRN medications, --Atypical chest pain; probably secondary to symptomatic anemia Management to cardiology --History of pulmonary hypertension; supportive care --Diabetes mellitus; Accu-Chek sliding scale coverage and ADA diet Insulin as needed --DVT prophylaxis; SCD, pharmacologic anticoagulation In view of thrombocytopenia and anemia --Full code Monitor closely and adjust management as needed. Consults and Recommendations noted and appreciated History Interval history: Patient seen and examined medical records reviewed The patient complains of generalized weakness, mild intermittent chest pain Patient is alert awake oriented, mild distress vital signs noted Hospitalist Physical - Constitutional Vitals: Temp Pulse Resp BP Pulse Ox 97.5 F L 61 15 139/61 96 06/30/19 14:39 06/30/19 14:39 06/30/19 14:39 06/30/19 14:39 06/30/19 14:39 General appearance: Present: mild distress, well-nourished - EENT Eyes: Present: PERRL, EOM intact - Neck Neck: Present: supple, normal ROM - Respiratory Respiratory effort: normal Respiratory: bilateral: diminished, negative: rales, rhonchi, wheezing - Cardiovascular Rhythm: regular Heart Sounds: Present: S1 & S2 - Extremities Extremities: no ischemia, No edema - Abdominal General gastrointestinal: soft, non-tender, non-distended, normal bowel sounds - Integumentary Integumentary: Present: clear, warm - Psychiatric Psychiatric: appropriate mood/affect, cooperative - Neurologic Neurologic: CNII-XII intact, moves all extremities Results - Labs CBC & Chem 7: 06/30/19 15:19 06/30/19 04:06 Labs: Laboratory Last Values WBC 1.2 K/mm3 (4.5-11.0) L* 06/30/19 15:19 RBC 2.65 M/mm3 (3.65-5.03) L 06/30/19 15:19 Hgb 7.8 gm/dl (10.1-14.3) L D 06/30/19 15:19 Hct 23.8 % (30.3-42.9) L D 06/30/19 15:19 MCV 90 fl (79-97) 06/30/19 15:19 MCH 30 pg (28-32) 06/30/19 15:19 MCHC 33 % (30-34) 06/30/19 15:19 RDW 17.3 % (13.2-15.2) H 06/30/19 15:19 Plt Count 27 K/mm3 (140-440) L 06/30/19 15:19 Add Manual Diff Complete 06/30/19 04:06 Total Counted 100 06/30/19 04:06 Seg Neuts % (Manual) 14.0 % (40.0-70.0) L 06/30/19 04:06 Band Neutrophils % 40.0 % 06/30/19 04:06 Lymphocytes % (Manual) 35.0 % (13.4-35.0) 06/30/19 04:06 Reactive Lymphs % (Man) 0 % 06/30/19 04:06 Monocytes % (Manual) 2.0 % (0.0-7.3) 06/30/19 04:06 Eosinophils % (Manual) 2.0 % (0.0-4.3) 06/30/19 04:06 Basophils % (Manual) 0 % (0.0-1.8) 06/30/19 04:06 Metamyelocytes % 7.0 % 06/30/19 04:06 Myelocytes % 0 % 06/30/19 04:06 Promyelocytes % 0 % 06/30/19 04:06 Blast Cells % 0 % 06/30/19 04:06 Nucleated RBC % Not Reportable 06/30/19 04:06 Seg Neutrophils # Man 0.1 K/mm3 (1.8-7.7) L 06/30/19 04:06 Band Neutrophils # 0.3 K/mm3 06/30/19 04:06 Lymphocytes # (Manual) 0.3 K/mm3 (1.2-5.4) L 06/30/19 04:06 Abs React Lymphs (Man) 0.0 K/mm3 06/30/19 04:06 Monocytes # (Manual) 0.0 K/mm3 (0.0-0.8) 06/30/19 04:06 Eosinophils # (Manual) 0.0 K/mm3 (0.0-0.4) 06/30/19 04:06 Basophils # (Manual) 0.0 K/mm3 (0.0-0.1) 06/30/19 04:06 Metamyelocytes # 0.1 K/mm3 06/30/19 04:06 Myelocytes # 0.0 K/mm3 06/30/19 04:06 Promyelocytes # 0.0 K/mm3 06/30/19 04:06 Blast Cells # 0.0 K/mm3 06/30/19 04:06 WBC Morphology Not Reportable 06/30/19 04:06 Hypersegmented Neuts Not Reportable 06/30/19 04:06 Hyposegmented Neuts Not Reportable 06/30/19 04:06 Hypogranular Neuts Not Reportable 06/30/19 04:06 Smudge Cells Not Reportable 06/30/19 04:06 Toxic Granulation Not Reportable 06/30/19 04:06 Toxic Vacuolation Not Reportable 06/30/19 04:06 Dohle Bodies Not Reportable 06/30/19 04:06 Pelger-Huet Anomaly Not Reportable 06/30/19 04:06 Pao Rods Not Reportable 06/30/19 04:06 Platelet Estimate Consistent w auto 06/30/19 04:06 Clumped Platelets Not Reportable 06/30/19 04:06 Plt Clumps, EDTA Not Reportable 06/30/19 04:06 Large Platelets Not Reportable 06/30/19 04:06 Giant Platelets Not Reportable 06/30/19 04:06 Platelet Satelliting Not Reportable 06/30/19 04:06 Plt Morphology Comment Not Reportable 06/30/19 04:06 RBC Morphology Not Reportable 06/30/19 04:06 Dimorphic RBCs Not Reportable 06/30/19 04:06 Polychromasia Not Reportable 06/30/19 04:06 Hypochromasia Few 06/30/19 04:06 Poikilocytosis Not Reportable 06/30/19 04:06 Anisocytosis 2+ 06/30/19 04:06 Microcytosis Not Reportable 06/30/19 04:06 Macrocytosis 1+ 06/30/19 04:06 Spherocytes Not Reportable 06/30/19 04:06 Pappenheimer Bodies Not Reportable 06/30/19 04:06 Sickle Cells Not Reportable 06/30/19 04:06 Target Cells Not Reportable 06/30/19 04:06 Tear Drop Cells Not Reportable 06/30/19 04:06 Ovalocytes Not Reportable 06/30/19 04:06 Helmet Cells Not Reportable 06/30/19 04:06 [place] Bodies Not Reportable 06/30/19 04:06 [place] Rings Not Reportable 06/30/19 04:06 [place] Cells Not Reportable 06/30/19 04:06 Bite Cells Not Reportable 06/30/19 04:06 Crenated Cell Not Reportable 06/30/19 04:06 Elliptocytes Few 06/30/19 04:06 Acanthocytes (Spur) Not Reportable 06/30/19 04:06 Rouleaux Not Reportable 06/30/19 04:06 Hemoglobin C Crystals Not Reportable 06/30/19 04:06 Schistocytes Not Reportable 06/30/19 04:06 Malaria parasites Not Reportable 06/30/19 04:06 Chung Bodies Not Reportable 06/30/19 04:06 Hem Pathologist Commnt Sent to pathology 06/30/19 04:06 Sodium 140 mmol/L (137-145) 06/30/19 04:06 Potassium 4.8 mmol/L (3.6-5.0) 06/30/19 04:06 Chloride 110.7 mmol/L (98-107) H 06/30/19 04:06 Carbon Dioxide 18 mmol/L (22-30) L 06/30/19 04:06 Anion Gap 16 mmol/L 06/30/19 04:06 BUN 27 mg/dL (7-17) H 06/30/19 04:06 Creatinine 0.8 mg/dL (0.7-1.2) 06/30/19 04:06 Estimated GFR > 60 ml/min 06/30/19 04:06 BUN/Creatinine Ratio 34 % 06/30/19 04:06 Glucose 106 mg/dL (65-100) H 06/30/19 04:06 POC Glucose 99 (70-105) 06/30/19 12:27 Calcium 8.6 mg/dL (8.4-10.2) 06/30/19 04:06 Troponin T < 0.010 ng/mL (0.00-0.029) 06/30/19 04:06 NT-Pro-B Natriuret Pep 3753 pg/mL (0-900) H 06/29/19 22:29 Lipase 16 units/L (13-60) 06/29/19 19:29 Urine Color Yellow (Yellow) 06/30/19 09:25 Urine Turbidity Clear (Clear) 06/30/19 09:25 Urine pH 5.0 (5.0-7.0) 06/30/19 09:25 Ur Specific [place] 1.014 (1.003-1.030) 06/30/19 09:25 Urine Protein <15 mg/dl mg/dL (Negative) 06/30/19 09:25 Urine Glucose (UA) Neg mg/dL (Negative) 06/30/19 09:25 Urine Ketones Neg mg/dL (Negative) 06/30/19 09:25 Urine Blood Neg (Negative) 06/30/19 09:25 Urine Nitrite Neg (Negative) 06/30/19 09:25 Urine Bilirubin Neg (Negative) 06/30/19 09:25 Urine Urobilinogen < 2.0 mg/dL (<2.0) 06/30/19 09:25 Ur Leukocyte Esterase Neg (Negative) 06/30/19 09:25 Urine WBC (Auto) 3.0 /HPF (0.0-6.0) 06/30/19 09:25 Urine RBC (Auto) 3.0 /HPF (0.0-6.0) 06/30/19 09:25 U Epithel Cells (Auto) 1.0 /HPF (0-13.0) 06/30/19 09:25 Urine Bacteria (Auto) 1+ /HPF (Negative) 06/30/19 09:25 Blood Type O POSITIVE 06/29/19 22:35 Antibody Screen Negative 06/29/19 22:35 Crossmatch See Detail 06/29/19 22:35 Active Medications - Current Medications Current Medications: Generic Name Dose Route Start Last Admin Trade Name Freq PRN Reason Stop Dose Admin Acetaminophen 650 mg 06/29/19 22:21 Tylenol PO Q4H PRN Pain MILD(1-3)/Fever >100.5/COLUNGA Acetaminophen/Hydrocodone Bitart 1 each 06/29/19 23:18 [place] 5/325 PO Q6H PRN PAIN(4-6) Amlodipine Besylate 5 mg 06/30/19 10:00 06/30/19 11:15 Norvasc PO 5 mg DAILY [facility] Administration Dextrose 50 ml 06/29/19 22:21 D50w (25gm) Syringe IV PRN PRN Hypoglycemia Docusate Sodium 100 mg 06/30/19 10:00 06/30/19 11:12 Colace PO 100 mg BID [facility] Administration Furosemide 20 mg 06/30/19 10:00 06/30/19 11:13 Lasix IV 20 mg BID [facility] Administration Sodium Chloride 500 mls @ 0 mls/hr 06/30/19 09:30 Nacl 0.9% 500 Ml IV 06/30/19 18:00 ONCE NR As Directed Insulin Human Lispro 0 unit 06/30/19 07:30 06/30/19 08:00 Humalog SUB-Q Not Given ACHS [facility] Protocol Isosorbide Mononitrate 30 mg 07/01/19 10:00 Imdur PO QDAY [facility] Loratadine 10 mg 06/30/19 10:00 06/30/19 11:12 Claritin PO 10 mg DAILY [facility] Administration Metformin HCl 1,000 mg 06/30/19 08:00 06/30/19 08:00 Glucophage PO 1,000 mg BIDDIAB [facility] Administration Metoprolol Tartrate 25 mg 06/30/19 10:00 06/30/19 11:14 Lopressor PO 25 mg BID [facility] Administration Morphine Sulfate 2 mg 06/29/19 22:21 Morphine IV Q4H PRN Pain, (7-10) Ondansetron HCl 4 mg 06/29/19 22:21 Zofran IV Q6H PRN Nausea And Vomiting Polyethylene Glycol 17 gm 06/30/19 10:00 06/30/19 11:11 Miralax 3350 PO 17 gm QDAY [facility] Administration Sodium Chloride 10 ml 06/30/19 10:00 06/30/19 11:23 Sodium Chloride Flush Syringe 10 Ml IV 10 ml BID [facility] Administration Sodium Chloride 10 ml 06/29/19 22:21 Sodium Chloride Flush Syringe 10 Ml IV PRN PRN LINE FLUSH Venlafaxine HCl 75 mg 06/30/19 10:00 06/30/19 11:12 Effexor PO 75 mg BID [facility] Administration
[2019-07-01 04:29] LABS: Hematocrit 22.4 % (30.3-42.9); Hemoglobin 7.7 gm/dl (10.1-14.3); Mean Corpuscular HGB Conc 34 % (30-34); Mean Corpuscular Volume 88 fl (79-97); Red Blood Count 2.56 M/mm3 (3.65-5.03); Red Cell Distribution Width 17.3 % (13.2-15.2)
[2019-07-01 04:32] LABS: Platelet Count 22 K/mm3 (140-440)
[2019-07-01] MEDS: INSULIN LISPRO 100 UNIT/ML SUB-Q SCH ×2 (08:00→12:49)
--- NOTE | 2019-07-01 08:18 | Progress Note ---
Assessment and Plan Assessment and plan: 78-year-old woman with history of MDS with severe chronic pancytopenia. Follows with [facility]/onc Dr. Gonsales,on decitabine and has only been able to tolerate 2 rx (second cycle was today on 06/29) due to pancytopenia (per Dr. Gonsales she will need at least 4 cycles to see if there is any response). She also has a history of GI bleed due to hemorrhoids, diabetes, was treated for right index finger MRSA abscess in April. She presents to the hospital now complaining of left- sided chest pain radiating to her left shoulder. She has known history of systolic CHF with EF of 45%, follows with [facility] Initial workup was consistent with pancytopenia with severe anemia, s/p 2 units of PRBC .On neutropenia precautions. --Pancytopenia; secondary to myelodysplastic syndrome s/p 2 units of PRBC transfusion Monitor H&H,platelets and transfuse as needed hematology --Leukopenia: management per hematology Neutropenia precautions --Myelodysplastic syndrome; management per hematology following, --Hypertension; moderate control continue current antihypertensives PRN medications, --Atypical chest pain; probably secondary to symptomatic anemia Management to cardiology --History of pulmonary hypertension; supportive care --Diabetes mellitus; Accu-Chek sliding scale coverage and ADA diet Insulin as needed --DVT prophylaxis; SCD, pharmacologic anticoagulation In view of thrombocytopenia and anemia --Full code Monitor closely and adjust management as needed. Consults and Recommendations noted and appreciated Hospitalist Physical - Constitutional Vitals: Temp Pulse Resp BP Pulse Ox 98.2 F 57 L 16 147/60 99 07/01/19 00:16 07/01/19 00:16 07/01/19 00:16 07/01/19 00:16 07/01/19 00:16 General appearance: Present: mild distress, well-nourished Results - Labs CBC & Chem 7: 07/01/19 04:15 06/30/19 04:06 Labs: Laboratory Last Values WBC 1.1 K/mm3 (4.5-11.0) L* 07/01/19 04:15 RBC 2.56 M/mm3 (3.65-5.03) L 07/01/19 04:15 Hgb 7.7 gm/dl (10.1-14.3) L 07/01/19 04:15 Hct 22.4 % (30.3-42.9) L 07/01/19 04:15 MCV 88 fl (79-97) 07/01/19 04:15 MCH 30 pg (28-32) 07/01/19 04:15 MCHC 34 % (30-34) 07/01/19 04:15 RDW 17.3 % (13.2-15.2) H 07/01/19 04:15 Plt Count 22 K/mm3 (140-440) L 07/01/19 04:15 Add Manual Diff Complete 06/30/19 04:06 Total Counted 100 06/30/19 04:06 Seg Neuts % (Manual) 14.0 % (40.0-70.0) L 06/30/19 04:06 Band Neutrophils % 40.0 % 06/30/19 04:06 Lymphocytes % (Manual) 35.0 % (13.4-35.0) 06/30/19 04:06 Reactive Lymphs % (Man) 0 % 06/30/19 04:06 Monocytes % (Manual) 2.0 % (0.0-7.3) 06/30/19 04:06 Eosinophils % (Manual) 2.0 % (0.0-4.3) 06/30/19 04:06 Basophils % (Manual) 0 % (0.0-1.8) 06/30/19 04:06 Metamyelocytes % 7.0 % 06/30/19 04:06 Myelocytes % 0 % 06/30/19 04:06 Promyelocytes % 0 % 06/30/19 04:06 Blast Cells % 0 % 06/30/19 04:06 Nucleated RBC % Not Reportable 06/30/19 04:06 Seg Neutrophils # Man 0.1 K/mm3 (1.8-7.7) L 06/30/19 04:06 Band Neutrophils # 0.3 K/mm3 06/30/19 04:06 Lymphocytes # (Manual) 0.3 K/mm3 (1.2-5.4) L 06/30/19 04:06 Abs React Lymphs (Man) 0.0 K/mm3 06/30/19 04:06 Monocytes # (Manual) 0.0 K/mm3 (0.0-0.8) 06/30/19 04:06 Eosinophils # (Manual) 0.0 K/mm3 (0.0-0.4) 06/30/19 04:06 Basophils # (Manual) 0.0 K/mm3 (0.0-0.1) 06/30/19 04:06 Metamyelocytes # 0.1 K/mm3 06/30/19 04:06 Myelocytes # 0.0 K/mm3 06/30/19 04:06 Promyelocytes # 0.0 K/mm3 06/30/19 04:06 Blast Cells # 0.0 K/mm3 06/30/19 04:06 WBC Morphology Not Reportable 06/30/19 04:06 Hypersegmented Neuts Not Reportable 06/30/19 04:06 Hyposegmented Neuts Not Reportable 06/30/19 04:06 Hypogranular Neuts Not Reportable 06/30/19 04:06 Smudge Cells Not Reportable 06/30/19 04:06 Toxic Granulation Not Reportable 06/30/19 04:06 Toxic Vacuolation Not Reportable 06/30/19 04:06 Dohle Bodies Not Reportable 06/30/19 04:06 Pelger-Huet Anomaly Not Reportable 06/30/19 04:06 Pao Rods Not Reportable 06/30/19 04:06 Platelet Estimate Consistent w auto 06/30/19 04:06 Clumped Platelets Not Reportable 06/30/19 04:06 Plt Clumps, EDTA Not Reportable 06/30/19 04:06 Large Platelets Not Reportable 06/30/19 04:06 Giant Platelets Not Reportable 06/30/19 04:06 Platelet Satelliting Not Reportable 06/30/19 04:06 Plt Morphology Comment Not Reportable 06/30/19 04:06 RBC Morphology Not Reportable 06/30/19 04:06 Dimorphic RBCs Not Reportable 06/30/19 04:06 Polychromasia Not Reportable 06/30/19 04:06 Hypochromasia Few 06/30/19 04:06 Poikilocytosis Not Reportable 06/30/19 04:06 Anisocytosis 2+ 06/30/19 04:06 Microcytosis Not Reportable 06/30/19 04:06 Macrocytosis 1+ 06/30/19 04:06 Spherocytes Not Reportable 06/30/19 04:06 Pappenheimer Bodies Not Reportable 06/30/19 04:06 Sickle Cells Not Reportable 06/30/19 04:06 Target Cells Not Reportable 06/30/19 04:06 Tear Drop Cells Not Reportable 06/30/19 04:06 Ovalocytes Not Reportable 06/30/19 04:06 Helmet Cells Not Reportable 06/30/19 04:06 [place] Bodies Not Reportable 06/30/19 04:06 [place] Rings Not Reportable 06/30/19 04:06 [place] Cells Not Reportable 06/30/19 04:06 Bite Cells Not Reportable 06/30/19 04:06 Crenated Cell Not Reportable 06/30/19 04:06 Elliptocytes Few 06/30/19 04:06 Acanthocytes (Spur) Not Reportable 06/30/19 04:06 Rouleaux Not Reportable 06/30/19 04:06 Hemoglobin C Crystals Not Reportable 06/30/19 04:06 Schistocytes Not Reportable 06/30/19 04:06 Malaria parasites Not Reportable 06/30/19 04:06 Chung Bodies Not Reportable 06/30/19 04:06 Hem Pathologist Commnt Sent to pathology 06/30/19 04:06 Sodium 140 mmol/L (137-145) 06/30/19 04:06 Potassium 4.8 mmol/L (3.6-5.0) 06/30/19 04:06 Chloride 110.7 mmol/L (98-107) H 06/30/19 04:06 Carbon Dioxide 18 mmol/L (22-30) L 06/30/19 04:06 Anion Gap 16 mmol/L 06/30/19 04:06 BUN 27 mg/dL (7-17) H 06/30/19 04:06 Creatinine 0.8 mg/dL (0.7-1.2) 06/30/19 04:06 Estimated GFR > 60 ml/min 06/30/19 04:06 BUN/Creatinine Ratio 34 % 06/30/19 04:06 Glucose 106 mg/dL (65-100) H 06/30/19 04:06 POC Glucose 103 (70-105) 07/01/19 07:26 Calcium 8.6 mg/dL (8.4-10.2) 06/30/19 04:06 Troponin T < 0.010 ng/mL (0.00-0.029) 06/30/19 04:06 NT-Pro-B Natriuret Pep 3753 pg/mL (0-900) H 06/29/19 22:29 Lipase 16 units/L (13-60) 06/29/19 19:29 Urine Color Yellow (Yellow) 06/30/19 09:25 Urine Turbidity Clear (Clear) 06/30/19 09:25 Urine pH 5.0 (5.0-7.0) 06/30/19 09:25 Ur Specific [place] 1.014 (1.003-1.030) 06/30/19 09:25 Urine Protein <15 mg/dl mg/dL (Negative) 06/30/19 09:25 Urine Glucose (UA) Neg mg/dL (Negative) 06/30/19 09:25 Urine Ketones Neg mg/dL (Negative) 06/30/19 09:25 Urine Blood Neg (Negative) 06/30/19 09:25 Urine Nitrite Neg (Negative) 06/30/19 09:25 Urine Bilirubin Neg (Negative) 06/30/19 09:25 Urine Urobilinogen < 2.0 mg/dL (<2.0) 06/30/19 09:25 Ur Leukocyte Esterase Neg (Negative) 06/30/19 09:25 Urine WBC (Auto) 3.0 /HPF (0.0-6.0) 06/30/19 09:25 Urine RBC (Auto) 3.0 /HPF (0.0-6.0) 06/30/19 09:25 U Epithel Cells (Auto) 1.0 /HPF (0-13.0) 06/30/19 09:25 Urine Bacteria (Auto) 1+ /HPF (Negative) 06/30/19 09:25 Blood Type O POSITIVE 06/29/19 22:35 Antibody Screen Negative 06/29/19 22:35 Crossmatch See Detail 06/29/19 22:35 Active Medications - Current Medications Current Medications: Generic Name Dose Route Start Last Admin Trade Name Freq PRN Reason Stop Dose Admin Acetaminophen 650 mg 06/29/19 22:21 Tylenol PO Q4H PRN Pain MILD(1-3)/Fever >100.5/COLUNGA Acetaminophen/Hydrocodone Bitart 1 each 06/29/19 23:18 06/30/19 21:08 [place] 5/325 PO 1 each Q6H PRN Administration PAIN(4-6) Amlodipine Besylate 5 mg 06/30/19 10:00 06/30/19 11:15 Norvasc PO 5 mg DAILY XOCHITL Administration Dextrose 50 ml 06/29/19 22:21 D50w (25gm) Syringe IV PRN PRN Hypoglycemia Docusate Sodium 100 mg 06/30/19 10:00 06/30/19 23:08 Colace PO 100 mg BID XOCHITL Administration Furosemide 20 mg 06/30/19 10:00 06/30/19 23:08 Lasix IV 20 mg BID XOCHITL Administration Insulin Human Lispro 0 unit 06/30/19 07:30 06/30/19 23:23 Humalog SUB-Q Not Given ACHS [facility] Protocol Isosorbide Mononitrate 30 mg 07/01/19 10:00 Imdur PO QDAY XOCHITL Loratadine 10 mg 06/30/19 10:00 06/30/19 11:12 Claritin PO 10 mg DAILY XOCHITL Administration Metformin HCl 1,000 mg 06/30/19 08:00 06/30/19 17:00 Glucophage PO 1,000 mg BIDDIAB XOCHITL Administration Metoprolol Tartrate 25 mg 06/30/19 10:00 06/30/19 23:08 Lopressor PO 25 mg BID XOCHITL Administration Morphine Sulfate 2 mg 06/29/19 22:21 Morphine IV Q4H PRN Pain, (7-10) Ondansetron HCl 4 mg 06/29/19 22:21 Zofran IV Q6H PRN Nausea And Vomiting Polyethylene Glycol 17 gm 06/30/19 10:00 06/30/19 11:11 Miralax 3350 PO 17 gm QDAY XOCHITL Administration Sodium Chloride 10 ml 06/30/19 10:00 06/30/19 23:38 Sodium Chloride Flush Syringe 10 Ml IV 10 ml BID XOCHITL Administration Sodium Chloride 10 ml 06/29/19 22:21 Sodium Chloride Flush Syringe 10 Ml IV PRN PRN LINE FLUSH Venlafaxine HCl 75 mg 06/30/19 10:00 06/30/19 23:07 Effexor PO 75 mg BID XOCHITL Administration
[2019-07-01] MEDS: metFORMIN 500 MG TAB PO SCH (08:45)
--- NOTE | 2019-07-01 08:54 | Hem/Onc Progress Note ---
Assessment and Plan 1. Myelodysplastic syndrome, the patient is on cycle 2 of Dacogen. She would need at least 4 cycles to see if there is any response. Of note, anemia, leukopenia and thrombocytopenia secondary to myelodysplastic syndrome, transfusion support as needed. 2. Methicillin-resistant Staphylococcus aureus in the finger. 3. History of hypertension. 4. History of diabetes. 5. PICC line will be looked into and once clinically stable, she will be discharged for outpatient followup. 6. The patient has an ejection fraction of 40%-45%. Cardiology was consulted during this time. PICC team saw pt - line changed - Patient Problems (1) Myelodysplastic syndrome Status: Chronic Subjective Date of service: 07/01/19 Principal diagnosis: MDS Interval history: s/p prbc s/p PICC change Objective - Exam Narrative Exam: Pain - n/a General appearance - stable Performance status limited self care Eyes - no icterus ENT - no bleeding LNs cervical not palpable Neck - no LN Respiratory Normal Breath sounds - CTA anteriorly CVS S1 S2 + Extremities no edema General GI Soft Rectal deferred female - deferred Skin warm Musculoskeletal moves limbs Neurologically - alert awake - Constitutional Vitals: Last Vital Signs Temp 98.0 F 07/01/19 07:22 Pulse 56 L 07/01/19 04:54 Resp 18 07/01/19 07:22 BP 161/48 07/01/19 07:22 Pulse Ox 96 07/01/19 04:54 - Labs Lab Results: Laboratory Results - last 24 hr 06/29/19 06/30/19 06/30/19 22:35 04:06 09:25 WBC RBC Hgb Hct MCV MCH MCHC RDW Plt Count Add Manual Diff Complete Total Counted 100 Seg Neuts % (Manual) 14.0 L Band Neutrophils % 40.0 Lymphocytes % (Manual) 35.0 Reactive Lymphs % (Man) 0 Monocytes % (Manual) 2.0 Eosinophils % (Manual) 2.0 Basophils % (Manual) 0 Metamyelocytes % 7.0 Myelocytes % 0 Promyelocytes % 0 Blast Cells % 0 Nucleated RBC % Not Reportable Seg Neutrophils # Man 0.1 L Band Neutrophils # 0.3 Lymphocytes # (Manual) 0.3 L Abs React Lymphs (Man) 0.0 Monocytes # (Manual) 0.0 Eosinophils # (Manual) 0.0 Basophils # (Manual) 0.0 Metamyelocytes # 0.1 Myelocytes # 0.0 Promyelocytes # 0.0 Blast Cells # 0.0 WBC Morphology Not Reportable Hypersegmented Neuts Not Reportable Hyposegmented Neuts Not Reportable Hypogranular Neuts Not Reportable Smudge Cells Not Reportable Toxic Granulation Not Reportable Toxic Vacuolation Not Reportable Dohle Bodies Not Reportable Pelger-Huet Anomaly Not Reportable Pao Rods Not Reportable Platelet Estimate Consistent w auto Clumped Platelets Not Reportable Plt Clumps, EDTA Not Reportable Large Platelets Not Reportable Giant Platelets Not Reportable Platelet Satelliting Not Reportable Plt Morphology Comment Not Reportable RBC Morphology Not Reportable Dimorphic RBCs Not Reportable Polychromasia Not Reportable Hypochromasia Few Poikilocytosis Not Reportable Anisocytosis 2+ Microcytosis Not Reportable Macrocytosis 1+ Spherocytes Not Reportable Pappenheimer Bodies Not Reportable Sickle Cells Not Reportable Target Cells Not Reportable Tear Drop Cells Not Reportable Ovalocytes Not Reportable Helmet Cells Not Reportable [place] Bodies Not Reportable [place] Rings Not Reportable [place] Cells Not Reportable Bite Cells Not Reportable Crenated Cell Not Reportable Elliptocytes Few Acanthocytes (Spur) Not Reportable Rouleaux Not Reportable Hemoglobin C Crystals Not Reportable Schistocytes Not Reportable Malaria parasites Not Reportable Chung Bodies Not Reportable Hem Pathologist Commnt Sent to pathology POC Glucose Urine Color Yellow Urine Turbidity Clear Urine pH 5.0 Ur Specific [place] 1.014 Urine Protein <15 mg/dl Urine Glucose (UA) Neg Urine Ketones Neg Urine Blood Neg Urine Nitrite Neg Urine Bilirubin Neg Urine Urobilinogen < 2.0 Ur Leukocyte Esterase Neg Urine WBC (Auto) 3.0 Urine RBC (Auto) 3.0 U Epithel Cells (Auto) 1.0 Urine Bacteria (Auto) 1+ Blood Type O POSITIVE Antibody Screen Negative Crossmatch See Detail 06/30/19 06/30/19 06/30/19 12:27 15:19 17:40 WBC 1.2 L* RBC 2.65 L Hgb 7.8 L D Hct 23.8 L D MCV 90 MCH 30 MCHC 33 RDW 17.3 H Plt Count 27 L Add Manual Diff Total Counted Seg Neuts % (Manual) Band Neutrophils % Lymphocytes % (Manual) Reactive Lymphs % (Man) Monocytes % (Manual) Eosinophils % (Manual) Basophils % (Manual) Metamyelocytes % Myelocytes % Promyelocytes % Blast Cells % Nucleated RBC % Seg Neutrophils # Man Band Neutrophils # Lymphocytes # (Manual) Abs React Lymphs (Man) Monocytes # (Manual) Eosinophils # (Manual) Basophils # (Manual) Metamyelocytes # Myelocytes # Promyelocytes # Blast Cells # WBC Morphology Hypersegmented Neuts Hyposegmented Neuts Hypogranular Neuts Smudge Cells Toxic Granulation Toxic Vacuolation Dohle Bodies Pelger-Huet Anomaly Pao Rods Platelet Estimate Clumped Platelets Plt Clumps, EDTA Large Platelets Giant Platelets Platelet Satelliting Plt Morphology Comment RBC Morphology Dimorphic RBCs Polychromasia Hypochromasia Poikilocytosis Anisocytosis Microcytosis Macrocytosis Spherocytes Pappenheimer Bodies Sickle Cells Target Cells Tear Drop Cells Ovalocytes Helmet Cells [place] Bodies [place] Rings Manuel Cells Bite Cells Crenated Cell Elliptocytes Acanthocytes (Spur) Rouleaux Hemoglobin C Crystals Schistocytes Malaria parasites Chung Bodies Hem Pathologist Commnt POC Glucose 99 119 H Urine Color Urine Turbidity Urine pH Ur Specific [place] Urine Protein Urine Glucose (UA) Urine Ketones Urine Blood Urine Nitrite Urine Bilirubin Urine Urobilinogen Ur Leukocyte Esterase Urine WBC (Auto) Urine RBC (Auto) U Epithel Cells (Auto) Urine Bacteria (Auto) Blood Type Antibody Screen Crossmatch 06/30/19 07/01/19 07/01/19 20:58 04:15 07:26 WBC 1.1 L* RBC 2.56 L Hgb 7.7 L Hct 22.4 L MCV 88 MCH 30 MCHC 34 RDW 17.3 H Plt Count 22 L Add Manual Diff Total Counted Seg Neuts % (Manual) Band Neutrophils % Lymphocytes % (Manual) Reactive Lymphs % (Man) Monocytes % (Manual) Eosinophils % (Manual) Basophils % (Manual) Metamyelocytes % Myelocytes % Promyelocytes % Blast Cells % Nucleated RBC % Seg Neutrophils # Man Band Neutrophils # Lymphocytes # (Manual) Abs React Lymphs (Man) Monocytes # (Manual) Eosinophils # (Manual) Basophils # (Manual) Metamyelocytes # Myelocytes # Promyelocytes # Blast Cells # WBC Morphology Hypersegmented Neuts Hyposegmented Neuts Hypogranular Neuts Smudge Cells Toxic Granulation Toxic Vacuolation Dohle Bodies Pelger-Huet Anomaly Pao Rods Platelet Estimate Clumped Platelets Plt Clumps, EDTA Large Platelets Giant Platelets Platelet Satelliting Plt Morphology Comment RBC Morphology Dimorphic RBCs Polychromasia Hypochromasia Poikilocytosis Anisocytosis Microcytosis Macrocytosis Spherocytes Pappenheimer Bodies Sickle Cells Target Cells Tear Drop Cells Ovalocytes Helmet Cells [place] Bodies [place] Rings [place] Cells Bite Cells Crenated Cell Elliptocytes Acanthocytes (Spur) Rouleaux Hemoglobin C Crystals Schistocytes Malaria parasites Chung Bodies Hem Pathologist Commnt POC Glucose 98 103 Urine Color Urine Turbidity Urine pH Ur Specific [place] Urine Protein Urine Glucose (UA) Urine Ketones Urine Blood Urine Nitrite Urine Bilirubin Urine Urobilinogen Ur Leukocyte Esterase Urine WBC (Auto) Urine RBC (Auto) U Epithel Cells (Auto) Urine Bacteria (Auto) Blood Type Antibody Screen Crossmatch Medications & Allergies - Medications Allergies/Adverse Reactions: Allergies No Known Allergies Allergy (Verified 06/06/19 08:16) Home Medications: Home Medications Medication Instructions Recorded Confirmed Last Taken Type Acetaminophen [Acetaminophen TAB] 500 mg PO Q6HR 05/26/19 06/29/19 06/05/19 History Venlafaxine [Effexor] 75 mg PO BID 05/26/19 06/29/19 06/05/19 History Amlodipine Besylate [Norvasc] 5 mg PO DAILY #30 tablet 05/28/19 06/29/19 06/05/19 Rx HYDROcodone/APAP 5-325 [[place] 1 each PO Q6HR PRN #10 tablet 05/28/19 06/29/19 06/05/19 Rx 5-325 mg TAB] Loratadine [Claritin] 10 mg PO DAILY #30 tablet 05/28/19 06/29/19 06/05/19 Rx Metformin HCl [metFORMIN] 1,000 mg PO BID #60 tablet 05/28/19 06/29/19 06/05/19 Rx Polyethylene Glycol 3350 [Miralax 17 gm PO QDAY #30 powd.pack 05/28/19 06/29/19 06/05/19 Rx 3350] ISOSORBIDE MONOnitrate [Imdur ER] 30 mg PO QDAY #30 tablet 07/01/19 Unknown Rx Losartan [Cozaar] 50 mg PO QDAY #30 tablet 07/01/19 Unknown Rx Metoprolol Xl [Metoprolol 25 mg PO QDAY #30 tablet 07/01/19 Unknown Rx SUCCINATE ER TAB] Active Medications: Generic Name Dose Route Start Last Admin Trade Name Freq PRN Reason Stop Dose Admin Acetaminophen 650 mg 06/29/19 22:21 Tylenol PO Q4H PRN Pain MILD(1-3)/Fever >100.5/COLUNGA Acetaminophen/Hydrocodone Bitart 1 each 06/29/19 23:18 06/30/19 21:08 [place] 5/325 PO 1 each Q6H PRN Administration PAIN(4-6) Amlodipine Besylate 5 mg 06/30/19 10:00 06/30/19 11:15 Norvasc PO 5 mg DAILY XOCHITL Administration Dextrose 50 ml 06/29/19 22:21 D50w (25gm) Syringe IV PRN PRN Hypoglycemia Docusate Sodium 100 mg 06/30/19 10:00 06/30/19 23:08 Colace PO 100 mg BID XOCHITL Administration Furosemide 20 mg 06/30/19 10:00 06/30/19 23:08 Lasix IV 20 mg BID XOCHITL Administration Insulin Human Lispro 0 unit 06/30/19 07:30 06/30/19 23:23 Humalog SUB-Q Not Given ACHS XOCHITL Protocol Isosorbide Mononitrate 30 mg 07/01/19 10:00 Imdur PO QDAY XOCHITL Loratadine 10 mg 06/30/19 10:00 06/30/19 11:12 Claritin PO 10 mg DAILY XOCHITL Administration Metformin HCl 1,000 mg 06/30/19 08:00 06/30/19 17:00 Glucophage PO 1,000 mg BIDDIAB XOCHITL Administration Metoprolol Tartrate 25 mg 06/30/19 10:00 06/30/19 23:08 Lopressor PO 25 mg BID XOCHITL Administration Morphine Sulfate 2 mg 06/29/19 22:21 Morphine IV Q4H PRN Pain, (7-10) Ondansetron HCl 4 mg 06/29/19 22:21 Zofran IV Q6H PRN Nausea And Vomiting Polyethylene Glycol 17 gm 06/30/19 10:00 06/30/19 11:11 Miralax 3350 PO 17 gm QDAY XOCHITL Administration Sodium Chloride 10 ml 06/30/19 10:00 06/30/19 23:38 Sodium Chloride Flush Syringe 10 Ml IV 10 ml BID XOCHITL Administration Sodium Chloride 10 ml 06/29/19 22:21 Sodium Chloride Flush Syringe 10 Ml IV PRN PRN LINE FLUSH Venlafaxine HCl 75 mg 06/30/19 10:00 06/30/19 23:07 Effexor PO 75 mg BID XOCHITL Administration
[2019-07-01 09:33] LABS: Basophils % (Manual) 0 % (0.0-1.8); Total Cells Counted 100
[2019-07-01 09:34] LABS: Anisocytosis Few; Large Platelets Rare; Macrocytosis Few; Ovalocytes Few; Platelet Estimate Consistent w Auto; Poikilocytosis Few
[2019-07-01] MEDS ORDERED: METOPROLOL SUCCINATE XL 25 MG TAB PO SCH (10:00)
[2019-07-01] MEDS ORDERED: LOSARTAN 50 MG TAB PO SCH (10:00)
[2019-07-01] MEDS: POLYETHYLENE GLYCOL 3350 17 GM POWDER PO SCH (10:42)
[2019-07-01] MEDS: VENLAFAXINE 75 MG TAB PO SCH (10:42)
[2019-07-01] MEDS: DOCUSATE SODIUM 100 MG CAP PO SCH (10:42)
[2019-07-01] MEDS: LORATADINE (NF) 10 MG TAB PO SCH (10:42)
[2019-07-01] MEDS: amLODIPine 5 MG TAB PO SCH (10:43)
[2019-07-01] MEDS: FUROSEMIDE 40 MG/4 ML INJ IV SCH (10:43)
--- NOTE | 2019-07-01 10:46 | Progress Note ---
Assessment and Plan Chest pain currently resolved. Suspect her chest pain was related to demand ischemia in setting of severe symptomatic anemia, AMI ruled out. Pt states she is feeling better s/p PRBC tx. She does not appear to be a candidate for invasive cardiac management. Cont medical management. Pt appears to be nearing/at euvolemia - d/c IV lasix and can consider intermittent diuresis as necessary if additional blood product transfusions are required. Nothing further to add from cardiac perspective at this time. Will sign off. Recommend follow up in our office with Dr. Kingsley within 1-2 weeks of discharge ([phone]). The patient has been seen in conjunction with Dr. Kingsley who agrees with the assessment and plan of care. - Patient Problems (1) Chest pain Current Visit: Yes Status: Resolved (2) Symptomatic anemia Current Visit: Yes Status: Acute (3) Myelodysplastic syndrome Current Visit: Yes Status: Chronic (4) Pancytopenia Current Visit: Yes Status: Chronic (5) HTN (hypertension) Current Visit: Yes Status: Chronic (6) Pulmonary hypertension Current Visit: Yes Status: Chronic (7) Diabetes Current Visit: Yes Status: Chronic Qualifiers: Diabetes mellitus type: type 2 Subjective Date of service: 07/01/19 Principal diagnosis: anemia; hf Interval history: pt resting in bed, states she is feeling better today, no chest pain. in SR/SB on telemetry with HR 50s - 60s. Objective Last Vital Signs Temp 98.0 F 07/01/19 07:22 Pulse 56 L 07/01/19 04:54 Resp 18 07/01/19 07:22 BP 161/48 07/01/19 07:22 Pulse Ox 96 07/01/19 04:54 - Physical Examination General: No Apparent Distress HEENT: Positive: EOMI, Pallor, Normocephaly, Mucus Membranes Moist Neck: Positive: neck supple, trachea midline Cardiac: Positive: Reg Rate and Rhythm, S1/S2 Lungs: Positive: Decreased Breath Sounds Neuro: Positive: Grossly Intact Abdomen: Positive: Soft, Active Bowel Sounds. Negative: Tender Skin: Positive: Clear. Negative: Rash Extremities: Present: normal. Absent: edema - Labs and Meds CBC 06/30/19 07/01/19 Range/Units 15:19 04:15 WBC 1.2 L* 1.1 L* (4.5-11.0) K/mm3 RBC 2.65 L 2.56 L (3.65-5.03) M/mm3 Hgb 7.8 L D 7.7 L (10.1-14.3) gm/dl Hct 23.8 L D 22.4 L (30.3-42.9) % Plt Count 27 L 22 L (140-440) K/mm3 - Imaging and Cardiology EKG: image reviewed - EKG Sinus rhythms and dysrhythmias: sinus rhythm
[2019-07-01 11:31] VITALS: BP 151/60
--- NOTE | 2019-07-01 16:25 | Discharge Summary ---
Providers - Providers Date of Admission: 06/29/19 22:21 Date of discharge: 07/01/19 Attending physician: PAKO BENITEZ 06/29/19 Consult to Cardiac Rehabilitation [CONS] Routine Reason For Exam: Phase I 06/29/19 22:15 Consult to Physician [CONS] Routine Comment: Consulting Provider: RICARDO GONSALES Physician Instructions: Reason For Exam: MDS w severe pancytopenia 06/29/19 22:25 Consult to Cardiology [CONS] Routine Consulting Provider: FUENTES LAINEZ Reason For Exam: chest pain, hx cardiomyopathy, EF 40-45%, LVH 06/29/19 23:22 Consult to Physician [CONS] Routine Comment: Consulting Provider: ARTUR HAWK Physician Instructions: Reason For Exam: Malpositioned PICC line, tip is in subclavian 06/30/19 08:00 Consult to PICC Line RN [CONS] Routine Reason For Exam: does it need to be changed? Type Line:: PICC Hospitalization Reason for admission: Pancytopena/severe anema Condition: Fair Pertinent studies: cxr Procedures: Blood transfuson PICC line Hospital course: 78-year-old woman with history of MDS with severe chronic pancytopenia. Follows with [facility]-/onc Dr. Gonsales,on decitabine and has only been able to tolerate 2 rx (second cycle was today on 06/29) due to pancytopenia (per Dr. Gonsales she will need at least 4 cycles to see if there is any response). She also has a history of GI bleed due to hemorrhoids, diabetes, was treated for right index finger MRSA abscess in April. She presents to the hospital now complaining of left- sided chest pain radiating to her left shoulder. She has known history of systolic CHF with EF of 45%, follows with [facility]. Initial workup was consistent with pancytopenia with severe anemia, s/p 2 units of PRBC .On neutropenia precautions. Dscharge Diagnosis: --Pancytopenia; secondary to myelodysplastic syndrome s/p 2 units of PRBC transfusion Monitor H&H,platelets and transfuse as needed hematology --Leukopenia: management per hematology Neutropenia precautions --Myelodysplastic syndrome; management per hematology following, --Hypertension; moderate control continue current antihypertensives PRN medications, --Atypical chest pain; probably secondary to symptomatic anemia Management to cardiology --History of pulmonary hypertension; supportive care --Diabetes mellitus; Accu-Chek sliding scale coverage and ADA diet Insulin as needed --DVT prophylaxis; SCD, pharmacologic anticoagulation In view of thrombocytopenia and anemia --Full code Monitor closely and adjust management as needed. Consults and Recommendations noted and appreciated Disposition: DC-01 TO HOME OR SELFCARE Time spent for discharge: 32 min Core Measure Documentation - Palliative Care Palliative Care/ Comfort Measures: Not Applicable - Core Measures Any of the following diagnoses?: none Exam - Constitutional Vitals: Temp Pulse Resp BP Pulse Ox 98.0 F 79 16 151/60 96 07/01/19 07:22 07/01/19 12:14 07/01/19 12:14 07/01/19 11:24 07/01/19 12:14 General appearance: Present: no acute distress, well-nourished - EENT Eyes: Present: PERRL, EOM intact - Neck Neck: Present: supple, normal ROM - Respiratory Respiratory effort: normal Respiratory: bilateral: diminished, negative: rales, rhonchi, wheezing - Cardiovascular Rhythm: regular Heart Sounds: Present: S1 & S2 - Extremities Extremities: no ischemia, No edema - Abdominal General gastrointestinal: Present: soft, non-tender, non-distended, normal bowel sounds - Integumentary Integumentary: Present: clear, warm - Musculoskeletal Musculoskeletal: strength equal bilaterally - Psychiatric Psychiatric: appropriate mood/affect, cooperative - Neurologic Neurologic: CNII-XII intact, moves all extremities Plan Activity: advance as tolerated, fall precautions Diet: diabetic Additional Instructions: Follow-up with hematology oncologist on Thursday for chemotherapy Follow up with: [facility] [Other] - 3-5 Days RICARDO GONSALES MD [Staff Physician] - 7 Days Prescriptions: Losartan [Cozaar] 50 mg PO QDAY #30 tablet ISOSORBIDE MONOnitrate [Imdur ER] 30 mg PO QDAY #30 tablet Metoprolol Xl [Metoprolol SUCCINATE ER TAB] 25 mg PO QDAY #30 tablet
--- NOTE | 2019-07-02 00:32 | Consultation ---
REFERRING PHYSICIAN: Lorena Amaral M.D. REASON FOR CONSULTATION: Myelodysplastic syndrome, anemia. HISTORY OF PRESENT ILLNESS: I saw the patient, a 78-year-old female in the medical floor. She is known to me from the clinic setting. The patient has history of MDS. This was diagnosed in 2015. She was receiving transfusion support in 2017. She received one dose of chemotherapy, was hospitalized and did not come back to the clinic until 03/2019. In 03/2019, she underwent bone marrow biopsy, which showed MDS with 90%-100% cellularity and ring sideroblasts. She was started on Dacogen on 04/20. She has recently came back for cycle 2, she was feeling tired. Lab tests showed hemoglobin to be low. She was sent to hospital for same. She has received 3 days of chemotherapy. She also had history of right index finger MRSA in April. History of gastrointestinal bleed due to hemorrhoids and diabetes. At this time, no headache, no visual disturbances, no ear discharge, no chest pain, no palpitations, no vomiting, no diarrhea. PAST MEDICAL HISTORY: Hypertension, diabetes, anemia, systolic heart failure, rectal bleed. PAST SURGICAL HISTORY: Gallbladder surgery. FAMILY HISTORY: Diabetes, hypertension. SOCIAL HISTORY: No history of tobacco or alcohol usage. ALLERGIES: None. MEDICATIONS: Reviewed. PHYSICAL EXAMINATION: VITAL SIGNS: Temperature 97.5, pulse 61, respirations 16, BP 139/61. HEENT: Pallor present, no icterus. NECK: No neck lymph nodes. HEART: S1, S2. LUNGS: Clear to auscultation. ABDOMEN: Soft. PICC line present. NEUROLOGIC: Alert, awake, oriented. LABORATORY DATA: White cell 1.2, hemoglobin 7.8, MCV 90, platelet 27. At admission, hemoglobin was 4.9 and 4.8. RADIOLOGY: Chest x-ray was done. ASSESSMENT: 1. Myelodysplastic syndrome, the patient is on cycle 2 of Dacogen. She would need at least 4 cycles to see if there is any response. Of note, anemia, leukopenia and thrombocytopenia secondary to myelodysplastic syndrome, transfusion support as needed. 2. Methicillin-resistant Staphylococcus aureus in the finger. 3. History of hypertension. 4. History of diabetes. 5. PICC line will be looked into and once clinically stable, she will be discharged for outpatient followup. 6. The patient has an ejection fraction of 40%-45%. Cardiology was consulted during this time. JOB# [id number] SONNY/SHANNA
== END 2019-07-01 18:40 | disposition home or self-care (01) | DRG 315 ==
LOC: ED 17:40 → 4A 22:21
PROVIDERS: ADMIT Internal Medicine; ATTEND Internal Medicine
PROC: 30233N1 Transfusion of Nonautologous Red Blood Cells into Peripheral Vein, Percutaneous Approach (ICD-10-PCS; principal; 2019-06-30)
PROC: 05PYX3Z Removal of Infusion Device from Upper Vein, External Approach (ICD-10-PCS; 2019-06-30)
PROC: 02H633Z Insertion of Infusion Device into Right Atrium, Percutaneous Approach (ICD-10-PCS; 2019-06-30)
PROC: B5181ZA Fluoroscopy of Superior Vena Cava using Low Osmolar Contrast, Guidance (ICD-10-PCS; 2019-06-30)
DX: T82.524A Displacement of infusion catheter, initial encounter (principal); D61.818 Other pancytopenia; R65.10 Systemic inflammatory response syndrome (SIRS) of non-infectious origin without acute organ dysfunction; I50.22 Chronic systolic (congestive) heart failure; E87.2 Acidosis; E87.5 Hyperkalemia; I11.0 Hypertensive heart disease with heart failure; Y83.8 Other surgical procedures as the cause of abnormal reaction of the patient, or of later complication, without mention of misadventure at the time of the procedure; E11.9 Type 2 diabetes mellitus without complications; D46.Z Other myelodysplastic syndromes; Z79.84 Long term (current) use of oral hypoglycemic drugs; Z79.899 Other long term (current) drug therapy; I25.2 Old myocardial infarction; Z90.49 Acquired absence of other specified parts of digestive tract; Y92.098 Other place in other non-institutional residence as the place of occurrence of the external cause; Z82.49 Family history of ischemic heart disease and other diseases of the circulatory system
CPT/HCPCS: 36415; 36584; 71045; 80048; 81001; 82962; 83690; 83880; 84484; 85007; 85025; 85027; 86850; 86900; 86901; 86920; 87116; 93005; 93010; 96374; G0378; C1751; J1644; J1940; J7030; J7040; P9040

== ENCOUNTER 2019-07-13 19:29 | Inpatient (IN) | payer MEDICARE ==
--- NOTE | 2019-07-13 19:59 | Emergency Department Report ---
Blank Doc - Documentation Documentation: 78-year-old female that presents with abdominal pain with flank pain. This initial assessment/diagnostic orders/clinical plan/treatment(s) is/are subject to change based on patient's health status, clinical progression and re- assessment by fellow clinical providers in the ED. Further treatment and workup at subsequent clinical providers discretion. Patient/guardians urged not to elope from the ED as their condition may be serious if not clinically assessed and managed. Initial orders include: 1- Patient sent to MAIN for further evaluation and treatment 2- labs 3- UA
--- NOTE | 2019-07-13 21:03 | Emergency Department Report ---
ED Abdominal Pain HPI - General Chief Complaint: Abdominal Pain Stated Complaint: ABD PAIN/LT FLANK TO GROIN Time Seen by Provider: 07/13/19 19:58 Source: patient, EMS Mode of arrival: Stretcher Limitations: No Limitations - History of Present Illness Initial Comments: This is a 78 year old -O[place]i female with a history of MDS and severe chronic pancytopenia. Patient is followed by hematology oncologist Dr. Gonsales. Has a history of GI bleed due to hemorrhoids, diabetes hypertension and history of MRSA abscess in April. Patient presents to the Hospital complaining of left side abdominal pain 2 days with worsening pain. Patient admits to nausea and diarrhea but denies any vomiting. Patient also has a history of systolic CHF with an ejection fraction of 45. She also has a history of neutropenia. Recent reports her primary care doctor is Dr. Shanel Velarde. Patient denies any known drug allergies. MD Complaint: abdominal pain Onset/Timin -: days(s) Location: LLQ Radiation: suprapubic Migration to: no migration Severity: severe Severity scale (0 -10): 10 Quality: stabbing, aching Consistency: constant Improves With: nothing Worsens With: nothing Associated Symptoms: nausea, diarrhea. denies: vomiting, chills, constipation, dysuria, hematemesis, melena, hematuria, anorexia, syncope - Related Data Home Medications Medication Instructions Recorded Confirmed Last Taken Acetaminophen [Acetaminophen TAB] 500 mg PO Q6HR 05/26/19 06/29/19 06/05/19 Venlafaxine [Effexor] 75 mg PO BID 05/26/19 06/29/19 06/05/19 Previous Rx's Medication Instructions Recorded Last Taken Type Amlodipine Besylate [Norvasc] 5 mg PO DAILY #30 tablet 05/28/19 06/05/19 Rx HYDROcodone/APAP 5-325 [[place] 1 each PO Q6HR PRN #10 tablet 05/28/19 06/05/19 Rx 5-325 mg TAB] Loratadine [Claritin] 10 mg PO DAILY #30 tablet 05/28/19 06/05/19 Rx Metformin HCl [metFORMIN] 1,000 mg PO BID #60 tablet 05/28/19 06/05/19 Rx Polyethylene Glycol 3350 [Miralax 17 gm PO QDAY #30 powd.pack 05/28/19 06/05/19 Rx 3350] ISOSORBIDE MONOnitrate [Imdur ER] 30 mg PO QDAY #30 tablet 07/01/19 Unknown Rx Losartan [Cozaar] 50 mg PO QDAY #30 tablet 07/01/19 Unknown Rx Metoprolol Xl [Metoprolol 25 mg PO QDAY #30 tablet 07/01/19 Unknown Rx SUCCINATE ER TAB] Allergies Allergy/AdvReac Type Severity Reaction Status Date / Time No Known Allergies Allergy Verified 06/06/19 08:16 ED Review of Systems ROS: Stated complaint: ABD PAIN/LT FLANK TO GROIN Other details as noted in HPI Comment: All other systems reviewed and negative Gastrointestinal: abdominal pain (llq), nausea, diarrhea. denies: vomiting ED Past Medical Hx - Past Medical History Previous Medical History?: Yes Hx Hypertension: Yes Hx Heart Attack/AMI: Yes Hx Congestive Heart Failure: Yes Hx Diabetes: Yes Additional medical history: Myelodysplastic syndrome - Surgical History Hx Cholecystectomy: Yes Additional Surgical History: Bone Cancer. PICC line in left upper arm - Social History Smoking Status: Never Smoker Substance Use Type: None - Medications Home Medications: Home Medications Medication Instructions Recorded Confirmed Last Taken Type Acetaminophen [Acetaminophen TAB] 500 mg PO Q6HR 05/26/19 06/29/19 06/05/19 History Venlafaxine [Effexor] 75 mg PO BID 05/26/19 06/29/19 06/05/19 History Amlodipine Besylate [Norvasc] 5 mg PO DAILY #30 tablet 05/28/19 06/29/19 06/05/19 Rx HYDROcodone/APAP 5-325 [[place] 1 each PO Q6HR PRN #10 tablet 05/28/19 06/29/19 06/05/19 Rx 5-325 mg TAB] Loratadine [Claritin] 10 mg PO DAILY #30 tablet 05/28/19 06/29/19 06/05/19 Rx Metformin HCl [metFORMIN] 1,000 mg PO BID #60 tablet 05/28/19 06/29/19 06/05/19 Rx Polyethylene Glycol 3350 [Miralax 17 gm PO QDAY #30 powd.pack 05/28/19 06/29/19 06/05/19 Rx 3350] ISOSORBIDE MONOnitrate [Imdur ER] 30 mg PO QDAY #30 tablet 07/01/19 Unknown Rx Losartan [Cozaar] 50 mg PO QDAY #30 tablet 07/01/19 Unknown Rx Metoprolol Xl [Metoprolol 25 mg PO QDAY #30 tablet 07/01/19 Unknown Rx SUCCINATE ER TAB] ED Physical Exam - General Limitations: No Limitations General appearance: alert, in no apparent distress - Head Head exam: Present: atraumatic, normocephalic - Eye Eye exam: Present: normal appearance, PERRL - ENT ENT exam: Present: normal exam, mucous membranes moist - Neck Neck exam: Present: normal inspection. Absent: full ROM - Respiratory Respiratory exam: Present: normal lung sounds bilaterally. Absent: respiratory distress - Cardiovascular Cardiovascular Exam: Present: regular rate, systolic murmur - GI/Abdominal GI/Abdominal exam: Present: soft, tenderness (llq), guarding, normal bowel sounds. Absent: distended, rebound, rigid - Extremities Exam Extremities exam: Present: normal inspection, full ROM, pedal edema (trace) - Back Exam Back exam: Present: normal inspection - Neurological Exam Neurological exam: Present: alert, oriented X3 - Psychiatric Psychiatric exam: Present: normal affect, normal mood - Skin Skin exam: Present: petechiae (bilateral LE) ED Course Vital Signs 07/13/19 07/13/19 07/13/19 20:02 21:00 22:01 Temperature 99.1 F 98.4 F Pulse Rate 65 66 Respiratory 24 12 12 Rate Blood Pressure 111/38 Blood Pressure 114/27 [Right] O2 Sat by Pulse 99 100 Oximetry 07/13/19 07/14/19 07/14/19 22:31 01:44 01:46 Temperature 99.2 F Pulse Rate 74 74 Respiratory 18 16 18 Rate Blood Pressure 129/45 129/45 Blood Pressure [Right] O2 Sat by Pulse 100 98 Oximetry 07/14/19 02:01 Temperature 99.6 F Pulse Rate 76 Respiratory 21 Rate Blood Pressure 127/46 Blood Pressure [Right] O2 Sat by Pulse 94 Oximetry ED Medical Decision Making - Lab Data Result diagrams: 07/13/19 23:50 07/13/19 Unknown - Radiology Data Radiology results: report reviewed Patient: TONY BURCH MR#: [id number] : 1940 Acct:[id number] Age/Sex: 78 / F ADM Date: 07/13/19 Loc: ED Attending Dr: Ordering Physician: YENI MAGALLON Date of Service: 07/13/19 Procedure(s): CT abdomen pelvis w con Accession Number(s): [id number] cc: YENI MAGALLON CT ABDOMEN AND PELVIS WITH IV CONTRAST INDICATION: Left lower quadrant abdominal pain. COMPARISON: None available. TECHNIQUE: Axial CT images were obtained through the abdomen and pelvis after 100 mL IV contrast. All CT scans at this location are performed using CT dose reduction for ALARA by means of automated exposure control. FINDINGS -- ABDOMEN: Lung Bases: No acute abnormality. Liver: Hepatomegaly.. Gallbladder: Normal. Bile Ducts: Normal. Pancreas: Normal. Spleen: Splenomegaly the spleen measuring 16 cm craniocaudal. The spleen also contains multiple hypodense lesions scattered throughout the spleen, the largest of which measures almost 4 cm in lashay meter.. Adrenals: Normal. Right Kidney and Proximal Ureter: Normal. Left Kidney and Proximal Ureter: Normal. Stomach and Bowel: Some mucosal thickening involving the distal gastric antrum, nonspecific.. Lymph Nodes: No significant adenopathy. Aorta: No significant abnormality. IVC: Normal. Additional Findings: None. FINDINGS -- PELVIS: Urinary Bladder and Distal Ureters: Normal. Reproductive Organs: No acute abnormality. Appendix: Normal. Bowel: Acute diverticulitis of the distal sigmoid colon Free Fluid: None. Lymph Nodes: No significant adenopathy. Additional Findings: None. Skeletal System: No acute abnormality. IMPRESSION: 1. Acute diverticulitis of the distal sigmoid colon. 2. Hepatosplenomegaly, as above. There are multiple lesions identified throughout the spleen that are ultimately nonspecific given the enhancement pattern. Signer Name: Kaiden Hurt MD Signed: 07/14/2019 1:18 AM Workstation Name: [email or web address] Transcribed By: Dictated By: Kaiden Hurt MD Electronically Authenticated By: Kaiden Hurt MD Signed Date/Time: 07/14/19117 DD/ 5 TD/TT: - Medical Decision Making This is a 78 year old -[place] female with a history of MDS and severe chronic pancytopenia. Patient is followed by hematology oncologist Dr. Gonsales. Has a history of GI bleed due to hemorrhoids, diabetes hypertension and history of MRSA abscess in April. Patient presents to the Hospital complaining of left side abdominal pain 2 days with worsening pain. Patient admits to nausea and diarrhea but denies any vomiting. Patient also has a history of systolic CHF with an ejection fraction of 45. She also has a history of neutropenia. Recent reports her primary care doctor is Dr. Shanel Velarde. Patient denies any known drug allergies. Basic labs have been ordered, type and screen, PT and PTT INR, magnesium CT with contrast has pelvis and abdomen. Patient seen to be neutropenic with a WBC of less than 3, H&H 3.5 and 10.1 platelets less than 3. CT of abdomen shows diverticulitis of the colon and spleenomegaly. Discussed case with . Recommended. 2 units of RBCs and 1 unit of platelets pheresis. Patient was given 2 mg more of morphine with 2 mg of Zofran IV. Spoke with Dr. Crook ID doctor he recommeds patient to be given cefuroxime 1g and Flagyl 500mg iv times 1. Critical care attestation.: If time is entered above; I have spent that time in minutes in the direct care of this critically ill patient, excluding procedure time. ED Disposition Clinical Impression: Thrombocytopenia, Myelodysplastic syndrome, Diverticulitis Neutropenia Qualifiers: Neutropenia type: unspecified Qualified Code(s): D70.9 - Neutropenia, unspecified Disposition: OP ADMIT IP TO THIS HOSP Is pt being admited?: Yes Does the pt Need Aspirin: Yes Condition: Stable Instructions: Abdominal Pain (ED) Referrals: PRIMARY CARE, [Primary Care Provider] - 3-5 Days
[2019-07-13] MEDS ORDERED: ONDANSETRON 4 MG/2 ML INJ IV ONE (21:06)
[2019-07-13] MEDS ORDERED: MORPHINE 4 MG/1 ML INJ IV ONE (21:06)
[2019-07-13] MEDS ORDERED: MORPHINE 2 MG/1 ML INJ IV ONE (21:16)
--- NOTE | 2019-07-13 21:17 | Event Note ---
Date of service: 07/13/19 Face to Face: This is a pleasant 78-year-old female. I have evaluated the patient in the past. She presents to the ER with complaint of nontraumatic left flank pain that moves to the left lower quadrant, present for 2 days. This is a new type of pain for her. She's not had this pain in the past. She is tender in the left lower quadrant and left flank. She is otherwise afebrile with reassuring vital signs. She endorses no chest pain she endorses no new or different shortness of breath. Has a left upper extremity PICC line, with no redness, pus or streaking. The remainder of her physical exam is unremarkable. Upon my initial evaluation, she is speaking on a cellular phone, and she is in no acute distress. Plan is to check basic laboratory studies, treat her symptoms, obtain CT scan abdomen and pelvis, urinalysis and then reassess. Discussed this with physician clinical assistant professor, who verbalizes understanding. Discussed this with patient, who verbalizes understanding. Vital Signs 07/13/19 20:02 Temperature 99.1 F Pulse Rate 65 Respiratory 24 Rate Blood Pressure 111/38 O2 Sat by Pulse 99 Oximetry
[2019-07-13 21:24] LABS: Bacteria,Urine 1+ /HPF (Negative); Bilirubin,Urine NEG (Negative); Blood,Urine NEG (Negative); Color,Urine Yellow (Yellow); Mucus,Urine FEW /HPF; Protein,Urine <15 mg/dL mg/dL (Negative); Urobilinogen,Urine < 2.0 mg/dL (<2.0); WBC,Urine < 1.0 /HPF (0.0-6.0)
[2019-07-13 22:41] LABS: INR 1.35 (0.87-1.13)
[2019-07-13 23:59] LABS: BUN/Creatinine Ratio 36; Blood Urea Nitrogen 32 mg/dL (7-17); Calcium 8.1 mg/dL (8.4-10.2); Hemolysis Index 0
[2019-07-14 00:01] LABS: Alanine Aminotransferase < 5 units/L (7-56)
[2019-07-14 00:14] LABS: Mean Corpuscular HGB Conc 35 % (30-34); Mean Corpuscular Volume 87 fl (79-97); Red Blood Count 1.16 M/mm3 (3.65-5.03); Red Cell Distribution Width 16.4 % (13.2-15.2)
[2019-07-14 00:25] LABS: Hematocrit 10.1 % (30.3-42.9); Hemoglobin 3.5 gm/dl (10.1-14.3)
[2019-07-14] MEDS ORDERED: SODIUM CHLORIDE 0.9% 500 ML 500 ML IV ONE ×3 (00:28→05:25)
[2019-07-14 00:29] LABS: Platelet Count < 3.0 K/mm3 (140-440)
--- NOTE | 2019-07-14 01:23 | Cat Scan Report ---
CT ABDOMEN AND PELVIS WITH IV CONTRAST INDICATION: Left lower quadrant abdominal pain. COMPARISON: None available. TECHNIQUE: Axial CT images were obtained through the abdomen and pelvis after 100 mL IV contrast. All CT scans a t this location are performed using CT dose reduction for ALARA by means of automated exposure contro l. FINDINGS -- ABDOMEN: Lung Bases: No acute abnormality. Liver: Hepatomegaly.. Gallbladder: Normal. Bile Ducts: Normal. Pancreas: Normal. Spleen: Splenomegaly the spleen measuring 16 cm craniocaudal. The spleen also contains multiple hypod ense lesions scattered throughout the spleen, the largest of which measures almost 4 cm in diameter.. Adrenals: Normal. Right Kidney and Proximal Ureter: Normal. Left Kidney and Proximal Ureter: Normal. Stomach and Bowel: Some mucosal thickening involving the distal gastric antrum, nonspecific.. Lymph Nodes: No significant adenopathy. Aorta: No significant abnormality. IVC: Normal. Additional Findings: None. FINDINGS -- PELVIS: Urinary Bladder and Distal Ureters: Normal. Reproductive Organs: No acute abnormality. Appendix: Normal. Bowel: Acute diverticulitis of the distal sigmoid colon Free Fluid: None. Lymph Nodes: No significant adenopathy. Additional Findings: None. Skeletal System: No acute abnormality. IMPRESSION: 1. Acute diverticulitis of the distal sigmoid colon. 2. Hepatosplenomegaly, as above. There are multiple lesions identified throughout the spleen that are ultimately nonspecific given the enhancement pattern. Signer Name: Kaiden Hurt MD Signed: 07/14/2019 1:18 AM Workstation Name: [id number]
[2019-07-14] MEDS ORDERED: MORPHINE 2 MG/1 ML INJ ONE ×2 (01:37→06:10)
[2019-07-14] MEDS ORDERED: metroNIDAZOLE/NS 500 MG/100 ML 500 MG/100 ML BAG IV SCH (02:00)
[2019-07-14] MEDS ORDERED: CEFEPIME/NS 1 GM/100 ML 1 GM/100 ML BAG IV ONE (02:06)
[2019-07-14] MEDS ORDERED: ONDANSETRON 4 MG/2 ML INJ IV ONE (02:27)
[2019-07-14] MEDS ORDERED: MORPHINE 2 MG/1 ML INJ IV ONE (02:27)
[2019-07-14] MEDS ORDERED: ONDANSETRON 4 MG/2 ML INJ IV PRN ×2 (02:29→02:46)
--- NOTE | 2019-07-14 02:47 | History and Physical Report ---
History of Present Illness Date of examination: 07/14/19 History of present illness: 78-year-old woman with a history of myelodysplastic syndrome, hypertension, diabetes, anemia comes emergency room with complaints of left-sided abdominal pain that started on Thursday, described as something bubbling up in her stomach, intermittent, intensity 03/30, no radiation, can't identify exacerbating factor, relieved with IV morphine. Also admits to 2-3 episodes of diarrhea, 1 episode of vomiting Also admits to shortness of breath and feeling dizzy, fatigue and generalized weakness Review Of Systems: Constitutional: no weight loss, fever, chills Ears, eyes, nose, mouth and throat: no nasal congestion, no nasal discharge, no sinus pressure, blurry vision, diplopia Neck: No neck pain or rigidity. Cardiovascular: No palpitations, chest pain Respiratory: No shortness of breath, cough Gastrointestinal: No hematochezia Genitourinary : no dysuria, frequency , hematuria Musculoskeletal: no muscle ache , joint pain Integumentary: no rash, no pruritis Neurological: no parathesias, focal weakness Endocrine: no cold or heat intolerance, no polyuria or polydipsia Hematologic/Lymphatic: no easy bruising, no easy bleeding, no gland swelling Allergic/Immunologic: no urticaria, no angioedema. PAST MEDICAL HISTORY:myelodysplastic syndrome, hypertension, diabetes, anemia PAST SURGICAL HISTORY: gallbladder FAMILY HISTORY:hypertension, diabetes SOCIAL HISTORY: Denies tobacco, drugs, alcohol Medications and Allergies Allergies Allergy/AdvReac Type Severity Reaction Status Date / Time No Known Allergies Allergy Verified 06/06/19 08:16 Home Medications Medication Instructions Recorded Confirmed Last Taken Type Acetaminophen [Acetaminophen TAB] 500 mg PO Q6HR 05/26/19 06/29/19 06/05/19 History Venlafaxine [Effexor] 75 mg PO BID 05/26/19 06/29/19 06/05/19 History Amlodipine Besylate [Norvasc] 5 mg PO DAILY #30 tablet 05/28/19 06/29/19 06/05/19 Rx HYDROcodone/APAP 5-325 [Hundred 1 each PO Q6HR PRN #10 tablet 05/28/19 06/29/19 06/05/19 Rx 5-325 mg TAB] Loratadine [Claritin] 10 mg PO DAILY #30 tablet 09/04/0806/29/19 06/05/19 Rx Metformin HCl [metFORMIN] 1,000 mg PO BID #60 tablet 05/28/19 06/29/19 06/05/19 Rx Polyethylene Glycol 3350 [Miralax 17 gm PO QDAY #30 powd.pack 05/28/19 06/29/19 06/05/19 Rx 3350] ISOSORBIDE MONOnitrate [Imdur ER] 30 mg PO QDAY #30 tablet 07/01/19 Unknown Rx Losartan [Cozaar] 50 mg PO QDAY #30 tablet 07/01/19 Unknown Rx Metoprolol Xl [Metoprolol 25 mg PO QDAY #30 tablet 07/01/19 Unknown Rx SUCCINATE ER TAB] Active Meds: Active Medications Acetaminophen (Tylenol) 650 mg PO Q4H PRN PRN Reason: Pain MILD(1-3)/Fever >100.5/COLUNGA Diphenhydramine HCl (Benadryl) 25 mg IV ONCE ONE Stop: 07/14/19 02:29 Metronidazole (Flagyl 500 Mg/100 Ml) 500 mg in 100 mls @ 100 mls/hr IV Q8HR XOCHITL; Protocol Cefepime HCl (Cefepime/Ns 2 Gm/100 Ml) 2 gm in 100 mls @ 200 mls/hr IV Q12HR XOCHITL; Protocol Sodium Chloride (Nacl 0.9% 500 Ml) 500 mls @ 0 mls/hr IV ONCE ONE Stop: 07/14/19 02:40 Morphine Sulfate (Morphine) 2 mg IV Q4H PRN PRN Reason: Pain, Moderate (4-6) Ondansetron HCl (Zofran) 4 mg IV Q4H PRN PRN Reason: Nausea And Vomiting Sodium Chloride (Sodium Chloride Flush Syringe 10 Ml) 10 ml IV BID XOCHITL Sodium Chloride (Sodium Chloride Flush Syringe 10 Ml) 10 ml IV PRN PRN PRN Reason: LINE FLUSH Exam - Physical Exam Narrative exam: General Apperance: The patient sitting in bed no acute distress HEENT: Normocephalic, atraumatic. Pupils equally round and reactive to light, extraocular movement intact, and no sclericterus, pale conjunctiva s or JVD or thyromegaly or nodule. Neck supple, no carotid bruit, mucous membranes moist, no exudate or erythema Heart: S1-S2, regular is rhythm Lungs: CTA bilaterally, breathing comfortable Abdomen: Positive bowel sounds, soft, nontender, nondistended, h epatosplenomegaly Extremities: No edema cyanosis clubbing Skin: no rash, nodule, warm and dry Neuro:CN 2 -12 intact, motor/sensory intact, speech is fluent - Constitutional Vitals: Temp Pulse Resp BP Pulse Ox 99.6 F 76 21 127/46 94 07/14/19 02:01 07/14/19 02:01 07/14/19 02:01 07/14/19 02:01 07/14/19 02:01 Results - Labs CBC & Chem 7: 07/14/19 04:19 07/14/19 04:19 Labs: Abnormal lab results 07/13/19 07/13/19 07/13/19 Range/Units 22:45 23:50 Unknown WBC 0.2 L* (4.5-11.0) K/mm3 RBC 1.16 L (3.65-5.03) M/mm3 Hgb 3.5 L* (10.1-14.3) gm/dl Hct 10.1 L* (30.3-42.9) % MCHC 35 H (30-34) % RDW 16.4 H (13.2-15.2) % Plt Count < 3.0 L* (140-440) K/mm3 PT (12.2-14.9) Sec. INR (0.87-1.13) APTT (24.2-36.6) Sec. Chloride 108.0 H (98-107) mmol/L Carbon Dioxide 18 L (22-30) mmol/L BUN 32 H (7-17) mg/dL Glucose 106 H (65-100) mg/dL Calcium 8.1 L (8.4-10.2) mg/dL AST < 5 L (5-40) units/L ALT < 5 L (7-56) units/L Total Creatine Kinase (30-135) units/L Lipase 10 L (13-60) units/L Crossmatch See Detail 07/13/19 07/13/19 Range/Units Unknown Unknown WBC (4.5-11.0) K/mm3 RBC (3.65-5.03) M/mm3 Hgb (10.1-14.3) gm/dl Hct (30.3-42.9) % MCHC (30-34) % RDW (13.2-15.2) % Plt Count (140-440) K/mm3 PT 16.5 H (12.2-14.9) Sec. INR 1.35 H (0.87-1.13) APTT 38.0 H (24.2-36.6) Sec. Chloride (98-107) mmol/L Carbon Dioxide (22-30) mmol/L BUN (7-17) mg/dL Glucose (65-100) mg/dL Calcium (8.4-10.2) mg/dL AST (5-40) units/L ALT (7-56) units/L Total Creatine Kinase 8 L (30-135) units/L Lipase (13-60) units/L Crossmatch - Imaging and Cardiology CT scan - abdomen: report reviewed CT scan - pelvis: report reviewed Assessment and Plan Assessment Diverticulitis, acute Anemia, acute on chronic Neutropenia Pancytopenia Myelodysplastic syndrome diabetes Plan Admit to medicine Start cefepime, Flagyl as per ID recommendation Transfuse blood cell, platelet, premedicate with Benadryl, Tylenol Consult hematology critical care was consulted to see the patient Check fingersticks, initiate insulin sliding scale DVT prophylaxis 0520 Platelet not available as yet [facility] I spoke with the lab
[2019-07-14] MEDS ORDERED: DEXTROSE 50% IN WATER (25GM) 50 ML SYRINGE IV PRN (02:52)
[2019-07-14] MEDS ORDERED: CEFEPIME 0.5 GM in SODIUM CHLORIDE 0.9% 100 ML IV ONE (03:00)
[2019-07-14] MEDS ORDERED: diphenhydrAMINE 50 MG/ML VIAL IV ONE (03:15)
[2019-07-14 03:22] LABS: Basophils % (Manual) 0 % (0.0-1.8); Eosinophils % (Manual) 0 % (0.0-4.3); Monocytes % (Manual) 0 % (0.0-7.3); Total Cells Counted 33
[2019-07-14 03:24] LABS: Platelet Estimate Consistent w Auto; Schistocytes Few
[2019-07-14] MEDS ORDERED: diphenhydrAMINE 50 MG/ML VIAL ONE (03:29)
[2019-07-14] MEDS ORDERED: ONDANSETRON 4 MG/2 ML INJ ONE (03:30)
[2019-07-14] MEDS ORDERED: metroNIDAZOLE/NS 500 MG/100 ML 500 MG/100 ML BAG IV ONE ×3 (03:54→19:33)
[2019-07-14] MEDS: ACETAMINOPHEN 325 MG TAB PO PRN ×2 (04:15→19:01)
[2019-07-14] MEDS ORDERED: ACETAMINOPHEN 325 MG TAB ONE ×2 (04:18→18:59)
[2019-07-14] MEDS: metroNIDAZOLE/NS 500 MG/100 ML 500 MG/100 ML BAG IV SCH ×3 (04:30→19:33)
[2019-07-14 04:44] LABS: Mean Corpuscular HGB Conc 34 % (30-34); Mean Corpuscular Volume 90 fl (79-97); Red Blood Count 1.83 M/mm3 (3.65-5.03); Red Cell Distribution Width 15.9 % (13.2-15.2)
[2019-07-14 04:57] LABS: Hematocrit 16.5 % (30.3-42.9); Hemoglobin 5.6 gm/dl (10.1-14.3)
[2019-07-14 05:02] LABS: Platelet Count < 3.0 K/mm3 (140-440)
[2019-07-14 05:03] LABS: BUN/Creatinine Ratio 34; Blood Urea Nitrogen 27 mg/dL (7-17); Calcium 7.3 mg/dL (8.4-10.2); Hemolysis Index 4
[2019-07-14] MEDS: MORPHINE 2 MG/1 ML INJ IV PRN (06:10)
[2019-07-14] MEDS ORDERED: SODIUM CHLORIDE 0.9% 500 ML 500 ML ONE (07:51)
--- NOTE | 2019-07-14 08:08 | Event Note ---
Date: 07/14/19 [id number]
[2019-07-14] MEDS: INSULIN LISPRO 100 UNIT/ML SUB-Q SCH ×4 (08:13→22:43)
[2019-07-14 09:12] LABS: Basophils % (Manual) 0 % (0.0-1.8); Eosinophils % (Manual) 0 % (0.0-4.3); Monocytes % (Manual) 0 % (0.0-7.3); Total Cells Counted 67
[2019-07-14 09:13] LABS: Anisocytosis 1+; Macrocytosis 1+; Schistocytes Few; Tear Drop Cells Few
[2019-07-14 09:14] LABS: Ovalocytes Few; Platelet Estimate Consistent w Auto
--- NOTE | 2019-07-14 09:19 | Consultation ---
REFERRED BY: Perry Tejeda MD REASON FOR CONSULTATION: Anemia, leukopenia and thrombocytopenia. HISTORY OF PRESENT ILLNESS: I saw the patient, a 78-year-old female in the medical floor. The patient is known to me from the clinic setting. The patient has history of MDS, which was diagnosed in 2015. The patient received one dose of chemotherapy in 2018. After that, she was hospitalized and did not come back to the clinic until 03/2019. Bone marrow biopsy at this time showed MDS with 90% to 100% cellularity. The patient has been started on Dacogen in March. The patient has received 3 sessions of this. There were some delays because of hospitalizations. She came to the clinic for her post-chemotherapy G-CSF support. Blood test showed anemia, leukopenia and thrombocytopenia. I have asked her to go to the hospital. In the ER, the patient has received transfusion support. Platelet transfusion is pending. At this time, no headache, no visual disturbances, no ear discharge. Complaining of weakness. No hematemesis, no hematochezia, no fever, no vomiting, no diarrhea. PAST MEDICAL HISTORY: Diabetes, hypertension, anemia, systolic heart failure, rectal bleed. Mention of MRSA in the fingers. PAST SURGICAL HISTORY: Gallbladder surgery. FAMILY HISTORY: Diabetes and hypertension. SOCIAL HISTORY: No history of tobacco or alcohol usage. ALLERGIES: None. PHYSICAL EXAMINATION: VITAL SIGNS: Temperature 98, pulse 64, respirations 16, BP 99/29. HEENT: Pallor present, no icterus. NECK: No neck lymph nodes. PICC line present. HEART: S1, S2. ABDOMEN: Soft. EXTREMITIES: No calf tenderness. NEUROLOGIC: Alert, awake. LABORATORY DATA: White cell 0.2, hemoglobin 5.6, MCV 90, platelet less than 3. Potassium 4.5, creatinine 0.8, calcium 7.3, bilirubin 0.8. RADIOLOGY: Abdomen and pelvis CT was done. This shows hepatosplenomegaly. Spleen contains multiple hypodense lesions. ASSESSMENT AND PLAN: 1. Anemia, leukopenia, thrombocytopenia. 2. Bone marrow biopsy in March and had shown 90% to 100% cellularity with MDS. 3. Radiology shows hepatosplenomegaly with spleen lesions. 4. Transfusion support. 5. The patient will get G-CSF support. 6. PICC line. 7. History of methicillin-resistant Staphylococcus aureus in the finger. 8. History of hypertension. 9. History of diabetes. 10. In the past, ejection fraction was 40-45%. JOB# [id number] SONNY/SHANNA
[2019-07-14] MEDS ORDERED: ASPIRIN 325 MG TAB PO SCH (10:00)
[2019-07-14] MEDS: TBO-FILGRASTIM 300 MCG/0.5 ML SUB-Q SCH (10:19)
[2019-07-14 13:54] LABS: Mean Corpuscular HGB Conc 34 % (30-34); Mean Corpuscular Volume 88 fl (79-97); Red Blood Count 1.93 M/mm3 (3.65-5.03); Red Cell Distribution Width 15.4 % (13.2-15.2)
[2019-07-14] MEDS ORDERED: cefTRIAXone/NS 1 GM/50 ML 1 GM/50 ML BAG IV SCH (14:00)
--- NOTE | 2019-07-14 14:01 | Consultation ---
History of Present Illness - Reason for Consult Consult date: 07/14/19 Diverticulitis, pancytopenia Requesting physician: JAKE COLLINS - History of Present Illness The patient is a 78-year-old female with MDS, hypertension, diabetes, immunocompromised, on chemotherapy follows with Dr. Gonsales, seen by me during her admission in 05/2019 for R index finger MRSA abscess came to the ER yesterday with 3 days of left lower abdominal pain. Also had fever. Was nauseated, no diarrhea. CT in ER showed findings concerning for left colonic diverticulitis. ID was consulted last night, I recommended IV Cefepime and Flagyl. Had a low-grade temperature of 99.1 on admission. He was seen by hematology, started on Neupogen. Review of Systems: General: low grade fever, no chills or rigors HEENT: no new visual disturbance Respiratory: No cough, sputum, hemoptysis or shortness of breath Cardiovascular: No chest pain, syncope Gastrointestinal: nausea, abdominal pain + Genitourinary: No dysuria or hematuria Musculoskeletal: No new or worsening neck pain or back pain Neurologic: No headaches, seizures Hematologic: No easy bruising or bleeding Endocrine: No night sweats or acute weight loss Skin: negative for rash, jaundice Psychiatric: No suicidal or homicidal ideation Medications and Allergies Allergies Allergy/AdvReac Type Severity Reaction Status Date / Time No Known Allergies Allergy Verified 06/06/19 08:16 Home Medications Medication Instructions Recorded Confirmed Last Taken Type Acetaminophen [Acetaminophen TAB] 500 mg PO Q6HR 05/26/19 06/29/19 06/05/19 History Venlafaxine [Effexor] 75 mg PO BID 05/26/19 06/29/19 06/05/19 History Amlodipine Besylate [Norvasc] 5 mg PO DAILY #30 tablet 05/28/19 06/29/19 06/05/19 Rx HYDROcodone/APAP 5-325 [Perry 1 each PO Q6HR PRN #10 tablet 05/28/19 06/29/19 06/05/19 Rx 5-325 mg TAB] Loratadine [Claritin] 10 mg PO DAILY #30 tablet 05/28/19 06/29/19 06/05/19 Rx Metformin HCl [metFORMIN] 1,000 mg PO BID #60 tablet 05/28/19 06/29/19 06/05/19 Rx Polyethylene Glycol 3350 [Miralax 17 gm PO QDAY #30 powd.pack 05/28/19 06/29/19 06/05/19 Rx 3350] ISOSORBIDE MONOnitrate [Imdur ER] 30 mg PO QDAY #30 tablet 07/01/19 Unknown Rx Losartan [Cozaar] 50 mg PO QDAY #30 tablet 07/01/19 Unknown Rx Metoprolol Xl [Metoprolol 25 mg PO QDAY #30 tablet 07/01/19 Unknown Rx SUCCINATE ER TAB] Active Meds: Active Medications Acetaminophen (Tylenol) 650 mg PO Q4H PRN PRN Reason: Pain MILD(1-3)/Fever >100.5/COLUNGA Last Admin: 07/14/19 04:15 Dose: 650 mg Documented by: Dextrose (D50w (25gm) Syringe) 0 ml IV Q30MIN PRN PRN Reason: Hypoglycemia Metronidazole (Flagyl 500 Mg/100 Ml) 500 mg in 100 mls @ 100 mls/hr IV Q8H XOCHITL; Protocol Last Admin: 07/14/19 11:54 Dose: 100 mls/hr Documented by: Cefepime HCl (Cefepime/Ns 2 Gm/100 Ml) 2 gm in 100 mls @ 200 mls/hr IV Q12HR XOCHITL; Protocol Insulin Human Lispro (Humalog) 0 unit SUB-Q ACHS XOCHITL; Protocol Last Admin: 07/14/19 11:21 Dose: Not Given Documented by: Morphine Sulfate (Morphine) 2 mg IV Q4H PRN PRN Reason: Pain, Moderate (4-6) Last Admin: 07/14/19 06:10 Dose: 2 mg Documented by: Ondansetron HCl (Zofran) 4 mg IV Q4H PRN PRN Reason: Nausea And Vomiting Sodium Chloride (Sodium Chloride Flush Syringe 10 Ml) 10 ml IV BID [facility] Last Admin: 07/14/19 10:19 Dose: 10 ml Documented by: Sodium Chloride (Sodium Chloride Flush Syringe 10 Ml) 10 ml IV PRN PRN PRN Reason: LINE FLUSH Tbo-Filgrastim (Granix) 300 mcg SUB-Q DAILY XOCHITL Stop: 07/19/19 10:00 Last Admin: 07/14/19 10:19 Dose: 300 mcg Documented by: Physical Examination - Physical Exam Narrative exam: Physical Exam: Constitutional: Alert, cooperative. No acute distress Head, Ears, Nose: Normocephalic, atraumatic. External ears, nose normal Eyes: Conjunctivae/corneas clear. No icterus. No ptosis. Neck: Supple, no meningeal signs Oral: no thrush Cardiovascular: S1, S2 normal. Respiratory: Good air entry, clear to auscultation bilaterally GI: Soft, LLQ tenderness; bowel sounds normal. No peritoneal signs Musculoskeletal: No pedal edema, no cyanosis. Left arm PICC with old dressing. Right index finger with small wound with dressing, no drainage, non tender Skin: No rash or abscess Hem/Lymphatic: No palpable cervical or supraclavicular nodes. No lymphangitis Psych: Mood ok. Affect normal Neurological: Awake, alert, oriented. No gross abnormality - Constitutional Vitals: Vital Signs Temp Pulse Resp BP Pulse Ox 98.5 F 67 17 121/45 95 07/14/19 09:21 07/14/19 11:01 07/14/19 11:01 07/14/19 11:01 07/14/19 11:01 Temperature -Last 24 Hours Temperature 98.5 F Temperature 98.5 F Temperature 98.3 F Temperature 98.3 F Temperature 98.9 F Temperature 99.6 F Temperature 99.2 F Temperature 98.4 F Temperature 99.1 F Results - Labs CBC & Chem 7: 07/14/19 04:19 07/14/19 04:19 Labs: Abnormal lab results 07/13/19 07/13/19 07/13/19 Range/Units 22:45 23:50 Unknown WBC 0.2 L* (4.5-11.0) K/mm3 RBC 1.16 L (3.65-5.03) M/mm3 Hgb 3.5 L* (10.1-14.3) gm/dl Hct 10.1 L* (30.3-42.9) % MCHC 35 H (30-34) % RDW 16.4 H (13.2-15.2) % Plt Count < 3.0 L* (140-440) K/mm3 Seg Neuts % (Manual) 6.1 L (40.0-70.0) % Lymphocytes % (Manual) 93.9 H (13.4-35.0) % Seg Neutrophils # Man 0.0 L (1.8-7.7) K/mm3 Lymphocytes # (Manual) 0.2 L (1.2-5.4) K/mm3 PT (12.2-14.9) Sec. INR (0.87-1.13) APTT (24.2-36.6) Sec. Sodium (137-145) mmol/L Chloride 108.0 H (98-107) mmol/L Carbon Dioxide 18 L (22-30) mmol/L BUN 32 H (7-17) mg/dL Glucose 106 H (65-100) mg/dL Calcium 8.1 L (8.4-10.2) mg/dL AST < 5 L (5-40) units/L ALT < 5 L (7-56) units/L Total Creatine Kinase (30-135) units/L Lipase 10 L (13-60) units/L Crossmatch See Detail 07/13/19 07/13/19 07/14/19 Range/Units Unknown Unknown 04:19 WBC 0.2 L* (4.5-11.0) K/mm3 RBC 1.83 L (3.65-5.03) M/mm3 Hgb 5.6 L* (10.1-14.3) gm/dl Hct 16.5 L* D (30.3-42.9) % MCHC (30-34) % RDW 15.9 H (13.2-15.2) % Plt Count < 3.0 L* (140-440) K/mm3 Seg Neuts % (Manual) 1.5 L (40.0-70.0) % Lymphocytes % (Manual) 98.5 H (13.4-35.0) % Seg Neutrophils # Man 0.0 L (1.8-7.7) K/mm3 Lymphocytes # (Manual) 0.2 L (1.2-5.4) K/mm3 PT 16.5 H (12.2-14.9) Sec. INR 1.35 H (0.87-1.13) APTT 38.0 H (24.2-36.6) Sec. Sodium (137-145) mmol/L Chloride (98-107) mmol/L Carbon Dioxide (22-30) mmol/L BUN (7-17) mg/dL Glucose (65-100) mg/dL Calcium (8.4-10.2) mg/dL AST (5-40) units/L ALT (7-56) units/L Total Creatine Kinase 8 L (30-135) units/L Lipase (13-60) units/L Crossmatch 07/14/19 Range/Units 04:19 WBC (4.5-11.0) K/mm3 RBC (3.65-5.03) M/mm3 Hgb (10.1-14.3) gm/dl Hct (30.3-42.9) % MCHC (30-34) % RDW (13.2-15.2) % Plt Count (140-440) K/mm3 Seg Neuts % (Manual) (40.0-70.0) % Lymphocytes % (Manual) (13.4-35.0) % Seg Neutrophils # Man (1.8-7.7) K/mm3 Lymphocytes # (Manual) (1.2-5.4) K/mm3 PT (12.2-14.9) Sec. INR (0.87-1.13) APTT (24.2-36.6) Sec. Sodium 136 L (137-145) mmol/L Chloride 109.2 H (98-107) mmol/L Carbon Dioxide 16 L (22-30) mmol/L BUN 27 H (7-17) mg/dL Glucose 109 H (65-100) mg/dL Calcium 7.3 L (8.4-10.2) mg/dL AST (5-40) units/L ALT (7-56) units/L Total Creatine Kinase (30-135) units/L Lipase (13-60) units/L Crossmatch - Imaging and Cardiology CT scan - abdomen: report reviewed, image reviewed (diverticulitis of the distal sigmoid colon) Assessment and Plan Cultures: None this admission A/P: 78-year-old female with MDS, hypertension, diabetes, immunocompromised, on chemotherapy follows with Dr. Gonsales admitted with: 1) Acute diverticulitis of the distal sigmoid colon: CT reported no perforation or abscess. Treat with empiric abx. 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 On G-CSF 3) Multiple splenic lesions: ?related to her hematologic disease. 4) R index finger abscess: much improved, no abx needed. Continue wound care. Recs: - IV cefepime 2 g every 12 hrs + IV Flagyl 500 mg q8 hrs - It appears her PICC line dressing has not been changed since 06/30/2019, she is at risk of infection. Recommend changing her PICC line dressing, discussed with RN in Dara Crook MD, FACP [facility] C: [phone] O: [phone] F: [phone]
[2019-07-14 14:07] LABS: Hemoglobin 5.8 gm/dl (10.1-14.3)
[2019-07-14 14:08] LABS: Platelet Count 4 K/mm3 (140-440)
[2019-07-14] MEDS: CEFEPIME/NS 2 GM/100 ML 2 GM/100 ML BAG IV SCH ×2 (15:07→22:47)
[2019-07-14] MEDS ORDERED: ACETAMINOPHEN 325 MG TAB PO PRN (18:50)
[2019-07-14] MEDS ORDERED: SODIUM CHLORIDE 0.9% 250ML 250 ML IV ONE (23:35)
[2019-07-15] MEDS: metroNIDAZOLE/NS 500 MG/100 ML 500 MG/100 ML BAG IV SCH ×3 (01:13→21:11)
[2019-07-15] MEDS: MORPHINE 2 MG/1 ML INJ IV PRN ×4 (05:45→23:50)
--- NOTE | 2019-07-15 08:03 | Progress Note ---
Assessment and Plan Assessment and plan: Patient is a 78-year-old woman with a history of MDS with multiple blood transfusions, hypertension, diabetes, immunocompromised state on chemotherapy who follows with Dr. Gonsales admitted with: Severe thrombocytopenia: needing plt transfusion Acute on chronic anemia s/p blood transfusion> monitor CBC closely Acute diverticulitis of the distal sigmoid colon: CT reported no perforation or abscess. Treat with empiric abx. 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 On G-CSF Multiple splenic lesions: ?related to her hematologic disease. R index finger abscess: much improved, no abx needed. Continue wound care. History Interval history: Patient was seen and examined. Follow-up on current diagnosis left sided abdominal pains with nausea. No overnight events reported to me. Patient denies any chest pain, shortness breath, or severe headaches. Imaging, nursing note, chart, labs and old chart reviewed. Discussed with patient. Hospitalist Physical - Physical exam Narrative exam: Gen: WDWN, NAD, Awake, Alert, Orientated HEENT: NCAT, EOMI, PERRL, OP Clear Neck: supple, no adenopathy, no thyromegaly, no JVD CVS/Heart: RRR, normal S1S2, pulses present bilaterally Chest/Lungs: CTA B, Symmetrical chest expansion, good air entry bilaterally GI/Abdomen: soft, left side abd tenderness, good bowel sounds, no guarding or rebound /Bladder: no suprapubic tenderness, no CVA or paraspinal tenderness Extermity/Skin: no c/c/e, no obvious rash MSK: FROM x 4 Neuro: CN 2-12 grossly intact, no new focal deficits Psych: calm - Constitutional Vitals: Temp Pulse Resp BP Pulse Ox 99.1 F 67 19 134/45 99 07/15/19 04:00 07/15/19 03:50 07/15/19 05:45 07/15/19 03:50 07/15/19 03:50 Results - Labs CBC & Chem 7: 07/15/19 09:48 07/15/19 09:48 Labs: Laboratory Last Values WBC 0.3 K/mm3 (4.5-11.0) L* 07/14/19 13:47 RBC 1.93 M/mm3 (3.65-5.03) L 07/14/19 13:47 Hgb 5.8 gm/dl (10.1-14.3) L* 07/14/19 13:47 Hct 17.0 % (30.3-42.9) L* 07/14/19 13:47 MCV 88 fl (79-97) 07/14/19 13:47 MCH 30 pg (28-32) 07/14/19 13:47 MCHC 34 % (30-34) 07/14/19 13:47 RDW 15.4 % (13.2-15.2) H 07/14/19 13:47 Plt Count 4 K/mm3 (140-440) L* 07/14/19 13:47 Lymph % (Auto) Master Scheduler 07/14/19 04:19 Add Manual Diff Complete 07/14/19 04:19 Total Counted 67 07/14/19 04:19 Seg Neutrophils % Master Scheduler 07/14/19 04:19 Seg Neuts % (Manual) 1.5 % (40.0-70.0) L 07/14/19 04:19 Band Neutrophils % 0 % 07/14/19 04:19 Lymphocytes % (Manual) 98.5 % (13.4-35.0) H 07/14/19 04:19 Reactive Lymphs % (Man) 0 % 07/14/19 04:19 Monocytes % (Manual) 0 % (0.0-7.3) 07/14/19 04:19 Eosinophils % (Manual) 0 % (0.0-4.3) 07/14/19 04:19 Basophils % (Manual) 0 % (0.0-1.8) 07/14/19 04:19 Metamyelocytes % 0 % 07/14/19 04:19 Myelocytes % 0 % 07/14/19 04:19 Promyelocytes % 0 % 07/14/19 04:19 Blast Cells % 0 % 07/14/19 04:19 Nucleated RBC % Not Reportable 07/14/19 04:19 Seg Neutrophils # Man 0.0 K/mm3 (1.8-7.7) L 07/14/19 04:19 Band Neutrophils # 0.0 K/mm3 07/14/19 04:19 Lymphocytes # (Manual) 0.2 K/mm3 (1.2-5.4) L 07/14/19 04:19 Abs React Lymphs (Man) 0.0 K/mm3 07/14/19 04:19 Monocytes # (Manual) 0.0 K/mm3 (0.0-0.8) 07/14/19 04:19 Eosinophils # (Manual) 0.0 K/mm3 (0.0-0.4) 07/14/19 04:19 Basophils # (Manual) 0.0 K/mm3 (0.0-0.1) 07/14/19 04:19 Metamyelocytes # 0.0 K/mm3 07/14/19 04:19 Myelocytes # 0.0 K/mm3 07/14/19 04:19 Promyelocytes # 0.0 K/mm3 07/14/19 04:19 Blast Cells # 0.0 K/mm3 07/14/19 04:19 WBC Morphology Not Reportable 07/14/19 04:19 Hypersegmented Neuts Not Reportable 07/14/19 04:19 Hyposegmented Neuts Not Reportable 07/14/19 04:19 Hypogranular Neuts Not Reportable 07/14/19 04:19 Smudge Cells Not Reportable 07/14/19 04:19 Toxic Granulation Not Reportable 07/14/19 04:19 Toxic Vacuolation Not Reportable 07/14/19 04:19 Dohle Bodies Not Reportable 07/14/19 04:19 Pelger-Huet Anomaly Not Reportable 07/14/19 04:19 Pao Rods Not Reportable 07/14/19 04:19 Platelet Estimate Consistent w auto 07/14/19 04:19 Clumped Platelets Not Reportable 07/14/19 04:19 Plt Clumps, EDTA Not Reportable 07/14/19 04:19 Large Platelets Not Reportable 07/14/19 04:19 Giant Platelets Not Reportable 07/14/19 04:19 Platelet Satelliting Not Reportable 07/14/19 04:19 Plt Morphology Comment Not Reportable 07/14/19 04:19 RBC Morphology Not Reportable 07/14/19 04:19 Dimorphic RBCs Not Reportable 07/14/19 04:19 Polychromasia Not Reportable 07/14/19 04:19 Hypochromasia Not Reportable 07/14/19 04:19 Poikilocytosis Not Reportable 07/14/19 04:19 Anisocytosis 1+ 07/14/19 04:19 Microcytosis Not Reportable 07/14/19 04:19 Macrocytosis 1+ 07/14/19 04:19 Spherocytes Not Reportable 07/14/19 04:19 Pappenheimer Bodies Not Reportable 07/14/19 04:19 Sickle Cells Not Reportable 07/14/19 04:19 Target Cells Not Reportable 07/14/19 04:19 Tear Drop Cells Few 07/14/19 04:19 Ovalocytes Few 07/14/19 04:19 Helmet Cells Not Reportable 07/14/19 04:19 [place] Bodies Not Reportable 07/14/19 04:19 [place] Rings Not Reportable 07/14/19 04:19 [place] Cells Not Reportable 07/14/19 04:19 Bite Cells Not Reportable 07/14/19 04:19 Crenated Cell Not Reportable 07/14/19 04:19 Elliptocytes Not Reportable 07/14/19 04:19 Acanthocytes (Spur) Not Reportable 07/14/19 04:19 Rouleaux Not Reportable 07/14/19 04:19 Hemoglobin C Crystals Not Reportable 07/14/19 04:19 Schistocytes Few 07/14/19 04:19 Malaria parasites Not Reportable 07/14/19 04:19 Chung Bodies Not Reportable 07/14/19 04:19 Hem Pathologist Commnt No 07/14/19 04:19 PT 16.5 Sec. (12.2-14.9) H 07/13/19 Unknown INR 1.35 (0.87-1.13) H 07/13/19 Unknown APTT 38.0 Sec. (24.2-36.6) H 07/13/19 Unknown Sodium 136 mmol/L (137-145) L 07/14/19 04:19 Potassium 4.5 mmol/L (3.6-5.0) 07/14/19 04:19 Chloride 109.2 mmol/L (98-107) H 07/14/19 04:19 Carbon Dioxide 16 mmol/L (22-30) L 07/14/19 04:19 Anion Gap 15 mmol/L 07/14/19 04:19 BUN 27 mg/dL (7-17) H 07/14/19 04:19 Creatinine 0.8 mg/dL (0.7-1.2) 07/14/19 04:19 Estimated GFR > 60 ml/min 07/14/19 04:19 BUN/Creatinine Ratio 34 % 07/14/19 04:19 Glucose 109 mg/dL (65-100) H 07/14/19 04:19 POC Glucose 100 (70-105) 07/14/19 22:24 Calcium 7.3 mg/dL (8.4-10.2) L 07/14/19 04:19 Magnesium 2.20 mg/dL (1.7-2.3) 07/13/19 Unknown Total Bilirubin 0.80 mg/dL (0.1-1.2) 07/13/19 Unknown AST < 5 units/L (5-40) L 07/13/19 Unknown ALT < 5 units/L (7-56) L 07/13/19 Unknown Alkaline Phosphatase 67 units/L (35-129) 07/13/19 Unknown Total Creatine Kinase 8 units/L (30-135) L 07/13/19 Unknown Total Protein 6.7 g/dL (6.3-8.2) 07/13/19 Unknown Albumin 4.0 g/dL (3.9-5) 07/13/19 Unknown Albumin/Globulin Ratio 1.5 % 07/13/19 Unknown Lipase 10 units/L (13-60) L 07/13/19 Unknown Urine Color Yellow (Yellow) 07/13/19 Unknown Urine Turbidity Clear (Clear) 07/13/19 Unknown Urine pH 5.0 (5.0-7.0) 07/13/19 Unknown Ur Specific [place] 1.018 (1.003-1.030) 07/13/19 Unknown Urine Protein <15 mg/dl mg/dL (Negative) 07/13/19 Unknown Urine Glucose (UA) Neg mg/dL (Negative) 07/13/19 Unknown Urine Ketones Neg mg/dL (Negative) 07/13/19 Unknown Urine Blood Neg (Negative) 07/13/19 Unknown Urine Nitrite Neg (Negative) 07/13/19 Unknown Urine Bilirubin Neg (Negative) 07/13/19 Unknown Urine Urobilinogen < 2.0 mg/dL (<2.0) 07/13/19 Unknown Ur Leukocyte Esterase Neg (Negative) 07/13/19 Unknown Urine WBC (Auto) < 1.0 /HPF (0.0-6.0) 07/13/19 Unknown Urine RBC (Auto) 4.0 /HPF (0.0-6.0) 07/13/19 Unknown U Epithel Cells (Auto) 1.0 /HPF (0-13.0) 07/13/19 Unknown Urine Bacteria (Auto) 1+ /HPF (Negative) 07/13/19 Unknown Urine Mucus Few /HPF 07/13/19 Unknown Blood Type O POSITIVE 07/13/19 22:45 Antibody Screen Negative 07/13/19 22:45 Crossmatch See Detail 07/13/19 22:45 Active Medications - Current Medications Current Medications: Generic Name Dose Route Start Last Admin Trade Name Freq PRN Reason Stop Dose Admin Acetaminophen 650 mg 07/14/19 02:29 07/14/19 19:01 Tylenol PO 650 mg Q4H PRN Administration Pain MILD(1-3)/Fever >100.5/COLUNGA Dextrose 0 ml 07/14/19 02:52 D50w (25gm) Syringe IV Q30MIN PRN Hypoglycemia Metronidazole 500 mg in 100 mls @ 100 mls/hr 07/14/19 02:00 07/15/19 01:13 Flagyl 500 Mg/100 Ml IV 100 mls/hr Q8H XOCHITL Administration Protocol Cefepime HCl 2 gm in 100 mls @ 200 mls/hr 07/14/19 14:00 07/14/19 22:47 Cefepime/Ns 2 Gm/100 Ml IV 200 mls/hr Q12HR XOCHITL Administration Protocol Insulin Human Lispro 0 unit 07/14/19 07:30 07/14/19 22:43 Humalog SUB-Q Not Given ACHS XOCHITL Protocol Morphine Sulfate 2 mg 07/14/19 02:29 07/15/19 05:45 Morphine IV 2 mg Q4H PRN Administration Pain, Moderate (4-6) Ondansetron HCl 4 mg 07/14/19 02:46 Zofran IV Q4H PRN Nausea And Vomiting Sodium Chloride 10 ml 07/14/19 10:00 07/14/19 22:50 Sodium Chloride Flush Syringe 10 Ml IV 10 ml BID XOCHITL Administration Sodium Chloride 10 ml 07/14/19 02:29 Sodium Chloride Flush Syringe 10 Ml IV PRN PRN LINE FLUSH Tbo-Filgrastim 300 mcg 07/14/19 10:00 07/14/19 10:19 Granix SUB-Q 07/19/19 10:00 300 mcg DAILY XOCHITL Administration
[2019-07-15] MEDS: INSULIN LISPRO 100 UNIT/ML SUB-Q SCH ×4 (09:05→23:04)
[2019-07-15 10:12] LABS: Hemoglobin 7.4 gm/dl (10.1-14.3); Red Blood Count 2.42 M/mm3 (3.65-5.03)
[2019-07-15 10:13] LABS: Hematocrit 21.7 % (30.3-42.9); Mean Corpuscular HGB Conc 34 % (30-34); Mean Corpuscular Volume 90 fl (79-97)
[2019-07-15 10:14] LABS: Platelet Count 4 K/mm3 (140-440)
[2019-07-15 10:26] LABS: BUN/Creatinine Ratio 33; Blood Urea Nitrogen 26 mg/dL (7-17); Calcium 8.4 mg/dL (8.4-10.2); Hemolysis Index 35
[2019-07-15] MEDS: CEFEPIME/NS 2 GM/100 ML 2 GM/100 ML BAG IV SCH ×2 (11:03→21:11)
[2019-07-15] MEDS: TBO-FILGRASTIM 300 MCG/0.5 ML SUB-Q SCH (11:12)
--- NOTE | 2019-07-15 12:32 | Progress Note ---
Assessment and Plan Cultures: None this admission A/P: 78-year-old female with MDS, hypertension, diabetes, immunocompromised, on chemotherapy follows with Dr. Gonsales admitted with: 1) Acute diverticulitis of the distal sigmoid colon: CT reported no perforation or abscess. Treat with empiric abx. 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 On G-CSF 3) Multiple splenic lesions: ?related to her hematologic disease. 4) R index finger abscess: much improved, no abx needed. Continue wound care. Recs: - continue with IV cefepime 2 g every 12 hrs + IV Flagyl 500 mg q8 hrs - Guarded prognosis given her severe pancytopenia Dara Crook MD, FACP [facility] C: [phone] O: [phone] F: [phone] Subjective Date of service: 07/15/19 Interval history: Low grade temp. No fever. Abdominal pain continues. BM + Objective - Exam Narrative Exam: Physical Exam: Constitutional: Alert, cooperative. No acute distress Head, Ears, Nose: Normocephalic, atraumatic. External ears, nose normal Eyes: Conjunctivae/corneas clear. No icterus. No ptosis. Neck: Supple, no meningeal signs Oral: no thrush Cardiovascular: S1, S2 normal. Respiratory: Good air entry, clear to auscultation bilaterally GI: Soft, LLQ tenderness; bowel sounds normal. No peritoneal signs Musculoskeletal: No pedal edema, no cyanosis. Left arm PICC +. Right index finger with small wound with dressing, no drainage, non tender Skin: No rash or abscess Hem/Lymphatic: No palpable cervical or supraclavicular nodes. No lymphangitis Psych: Mood ok. Affect normal Neurological: Awake, alert, oriented. No gross abnormality - Constitutional Vitals: Vital Signs Temp Pulse Resp BP Pulse Ox 99.1 F 74 15 144/55 99 07/15/19 04:00 07/15/19 08:40 07/15/19 08:40 07/15/19 08:40 07/15/19 08:46 Temperature -Last 24 Hours Temperature 99.1 F Temperature 99.1 F Temperature 99.1 F Temperature 99.4 F Temperature 99.2 F Temperature 98.1 F Temperature 99.3 F Temperature 99.7 F - Labs CBC & Chem 7: 07/15/19 09:48 07/15/19 09:48 Labs: Abnormal lab results 07/13/19 07/14/19 07/15/19 Range/Units 22:45 13:47 09:48 WBC 0.3 L* 0.4 L* (4.5-11.0) K/mm3 RBC 1.93 L 2.42 L (3.65-5.03) M/mm3 Hgb 5.8 L* 7.4 L (10.1-14.3) gm/dl Hct 17.0 L* 21.7 L (30.3-42.9) % RDW 15.4 H 17.0 H (13.2-15.2) % Plt Count 4 L* 4 L* (140-440) K/mm3 Chloride (98-107) mmol/L Carbon Dioxide (22-30) mmol/L BUN (7-17) mg/dL Crossmatch See Detail 07/15/19 Range/Units 09:48 WBC (4.5-11.0) K/mm3 RBC (3.65-5.03) M/mm3 Hgb (10.1-14.3) gm/dl Hct (30.3-42.9) % RDW (13.2-15.2) % Plt Count (140-440) K/mm3 Chloride 108.3 H (98-107) mmol/L Carbon Dioxide 15 L (22-30) mmol/L BUN 26 H (7-17) mg/dL Crossmatch
[2019-07-15] MEDS ORDERED: SODIUM CHLORIDE 0.9% 500 ML 500 ML IV NR (13:27)
[2019-07-15] MEDS ORDERED: SODIUM CHLORIDE 0.9% 500 ML 500 ML ONE (23:55)
[2019-07-16] MEDS: metroNIDAZOLE/NS 500 MG/100 ML 500 MG/100 ML BAG IV SCH ×3 (02:38→20:16)
[2019-07-16] MEDS ORDERED: diphenhydrAMINE 50 MG/ML VIAL IV PRN (03:36)
[2019-07-16] MEDS: MORPHINE 2 MG/1 ML INJ IV PRN ×3 (04:02→21:03)
[2019-07-16] MEDS: INSULIN LISPRO 100 UNIT/ML SUB-Q SCH ×4 (08:10→22:27)
[2019-07-16] MEDS: CEFEPIME/NS 2 GM/100 ML 2 GM/100 ML BAG IV SCH ×2 (10:54→21:03)
[2019-07-16] MEDS: TBO-FILGRASTIM 480 MCG/0.8 ML SUB-Q SCH (10:54)
[2019-07-16 12:23] LABS: Mean Corpuscular Volume 90 fl (79-97)
[2019-07-16 12:36] LABS: Mean Corpuscular HGB Conc 34 % (30-34); Red Blood Count 1.74 M/mm3 (3.65-5.03); Red Cell Distribution Width 17.4 % (13.2-15.2)
[2019-07-16 13:07] LABS: Hematocrit 15.7 % (30.3-42.9); Hemoglobin 5.3 gm/dl (10.1-14.3); Platelet Count 8 K/mm3 (140-440)
--- NOTE | 2019-07-16 14:54 | Progress Note ---
Assessment and Plan Assessment and plan: Patient is a 78-year-old woman with a history of MDS with multiple blood transfusions, hypertension, diabetes, immunocompromised state on chemotherapy who follows with Dr. Gonsales admitted with: Severe thrombocytopenia: needing plt transfusion Acute on chronic anemia s/p blood transfusion> monitor CBC closely Acute diverticulitis of the distal sigmoid colon: CT reported no perforation or abscess. Treat with empiric abx. 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 On G-CSF Multiple splenic lesions: ?related to her hematologic disease. R index finger abscess: much improved, no abx needed. Continue wound care. History Interval history: Patient was seen and examined. Follow-up on current diagnosis left sided abdominal pains with nausea. No overnight events reported to me. Patient denies any chest pain, shortness breath, or severe headaches. Imaging, nursing note, chart, labs and old chart reviewed. Discussed with patient. Hospitalist Physical - Physical exam Narrative exam: Gen: WDWN, NAD, Awake, Alert, Orientated HEENT: NCAT, EOMI, PERRL, OP Clear Neck: supple, no adenopathy, no thyromegaly, no JVD CVS/Heart: RRR, normal S1S2, pulses present bilaterally Chest/Lungs: CTA B, Symmetrical chest expansion, good air entry bilaterally GI/Abdomen: soft, left side abd tenderness, good bowel sounds, no guarding or rebound /Bladder: no suprapubic tenderness, no CVA or paraspinal tenderness Extermity/Skin: no c/c/e, no obvious rash MSK: FROM x 4 Neuro: CN 2-12 grossly intact, no new focal deficits Psych: calm - Constitutional Vitals: Temp Pulse Resp BP Pulse Ox 100.1 F H 93 H 16 122/36 97 07/16/19 12:00 07/16/19 13:20 07/16/19 13:20 07/16/19 13:20 07/16/19 13:20 Results - Labs CBC & Chem 7: 07/16/19 12:10 07/15/19 09:48 Labs: Laboratory Last Values WBC 0.2 K/mm3 (4.5-11.0) L* 07/16/19 12:10 RBC 1.74 M/mm3 (3.65-5.03) L 07/16/19 12:10 Hgb 5.3 gm/dl (10.1-14.3) L* 07/16/19 12:10 Hct 15.7 % (30.3-42.9) L* D 07/16/19 12:10 MCV 90 fl (79-97) 07/16/19 12:10 MCH 31 pg (28-32) 07/16/19 12:10 MCHC 34 % (30-34) 07/16/19 12:10 RDW 17.4 % (13.2-15.2) H 07/16/19 12:10 Plt Count 8 K/mm3 (140-440) L* D 07/16/19 12:10 Lymph % (Auto) Stone Setter Apprentice 07/14/19 04:19 Add Manual Diff Complete 07/14/19 04:19 Total Counted 67 07/14/19 04:19 Seg Neutrophils % Stone Setter Apprentice 07/14/19 04:19 Seg Neuts % (Manual) 1.5 % (40.0-70.0) L 07/14/19 04:19 Band Neutrophils % 0 % 07/14/19 04:19 Lymphocytes % (Manual) 98.5 % (13.4-35.0) H 07/14/19 04:19 Reactive Lymphs % (Man) 0 % 07/14/19 04:19 Monocytes % (Manual) 0 % (0.0-7.3) 07/14/19 04:19 Eosinophils % (Manual) 0 % (0.0-4.3) 07/14/19 04:19 Basophils % (Manual) 0 % (0.0-1.8) 07/14/19 04:19 Metamyelocytes % 0 % 07/14/19 04:19 Myelocytes % 0 % 07/14/19 04:19 Promyelocytes % 0 % 07/14/19 04:19 Blast Cells % 0 % 07/14/19 04:19 Nucleated RBC % Not Reportable 07/14/19 04:19 Seg Neutrophils # Man 0.0 K/mm3 (1.8-7.7) L 07/14/19 04:19 Band Neutrophils # 0.0 K/mm3 07/14/19 04:19 Lymphocytes # (Manual) 0.2 K/mm3 (1.2-5.4) L 07/14/19 04:19 Abs React Lymphs (Man) 0.0 K/mm3 07/14/19 04:19 Monocytes # (Manual) 0.0 K/mm3 (0.0-0.8) 07/14/19 04:19 Eosinophils # (Manual) 0.0 K/mm3 (0.0-0.4) 07/14/19 04:19 Basophils # (Manual) 0.0 K/mm3 (0.0-0.1) 07/14/19 04:19 Metamyelocytes # 0.0 K/mm3 07/14/19 04:19 Myelocytes # 0.0 K/mm3 07/14/19 04:19 Promyelocytes # 0.0 K/mm3 07/14/19 04:19 Blast Cells # 0.0 K/mm3 07/14/19 04:19 WBC Morphology Not Reportable 07/14/19 04:19 Hypersegmented Neuts Not Reportable 07/14/19 04:19 Hyposegmented Neuts Not Reportable 07/14/19 04:19 Hypogranular Neuts Not Reportable 07/14/19 04:19 Smudge Cells Not Reportable 07/14/19 04:19 Toxic Granulation Not Reportable 07/14/19 04:19 Toxic Vacuolation Not Reportable 07/14/19 04:19 Dohle Bodies Not Reportable 07/14/19 04:19 Pelger-Huet Anomaly Not Reportable 07/14/19 04:19 Pao Rods Not Reportable 07/14/19 04:19 Platelet Estimate Consistent w auto 07/14/19 04:19 Clumped Platelets Not Reportable 07/14/19 04:19 Plt Clumps, EDTA Not Reportable 07/14/19 04:19 Large Platelets Not Reportable 07/14/19 04:19 Giant Platelets Not Reportable 07/14/19 04:19 Platelet Satelliting Not Reportable 07/14/19 04:19 Plt Morphology Comment Not Reportable 07/14/19 04:19 RBC Morphology Not Reportable 07/14/19 04:19 Dimorphic RBCs Not Reportable 07/14/19 04:19 Polychromasia Not Reportable 07/14/19 04:19 Hypochromasia Not Reportable 07/14/19 04:19 Poikilocytosis Not Reportable 07/14/19 04:19 Anisocytosis 1+ 07/14/19 04:19 Microcytosis Not Reportable 07/14/19 04:19 Macrocytosis 1+ 07/14/19 04:19 Spherocytes Not Reportable 07/14/19 04:19 Pappenheimer Bodies Not Reportable 07/14/19 04:19 Sickle Cells Not Reportable 07/14/19 04:19 Target Cells Not Reportable 07/14/19 04:19 Tear Drop Cells Few 07/14/19 04:19 Ovalocytes Few 07/14/19 04:19 Helmet Cells Not Reportable 07/14/19 04:19 [place] Bodies Not Reportable 07/14/19 04:19 [place] Rings Not Reportable 07/14/19 04:19 [place] Cells Not Reportable 07/14/19 04:19 Bite Cells Not Reportable 07/14/19 04:19 Crenated Cell Not Reportable 07/14/19 04:19 Elliptocytes Not Reportable 07/14/19 04:19 Acanthocytes (Spur) Not Reportable 07/14/19 04:19 Rouleaux Not Reportable 07/14/19 04:19 Hemoglobin C Crystals Not Reportable 07/14/19 04:19 Schistocytes Few 07/14/19 04:19 Malaria parasites Not Reportable 07/14/19 04:19 Chung Bodies Not Reportable 07/14/19 04:19 Hem Pathologist Commnt No 07/14/19 04:19 PT 16.5 Sec. (12.2-14.9) H 07/13/19 Unknown INR 1.35 (0.87-1.13) H 07/13/19 Unknown APTT 38.0 Sec. (24.2-36.6) H 07/13/19 Unknown Sodium 137 mmol/L (137-145) 07/15/19 09:48 Potassium 4.7 mmol/L (3.6-5.0) 07/15/19 09:48 Chloride 108.3 mmol/L (98-107) H 07/15/19 09:48 Carbon Dioxide 15 mmol/L (22-30) L 07/15/19 09:48 Anion Gap 18 mmol/L 07/15/19 09:48 BUN 26 mg/dL (7-17) H 07/15/19 09:48 Creatinine 0.8 mg/dL (0.7-1.2) 07/15/19 09:48 Estimated GFR > 60 ml/min 07/15/19 09:48 BUN/Creatinine Ratio 33 % 07/15/19 09:48 Glucose 96 mg/dL (65-100) 07/15/19 09:48 POC Glucose 97 (70-105) 07/16/19 11:49 Calcium 8.4 mg/dL (8.4-10.2) D 07/15/19 09:48 Magnesium 2.20 mg/dL (1.7-2.3) 07/13/19 Unknown Total Bilirubin 0.80 mg/dL (0.1-1.2) 07/13/19 Unknown AST < 5 units/L (5-40) L 07/13/19 Unknown ALT < 5 units/L (7-56) L 07/13/19 Unknown Alkaline Phosphatase 67 units/L (35-129) 07/13/19 Unknown Total Creatine Kinase 8 units/L (30-135) L 07/13/19 Unknown Total Protein 6.7 g/dL (6.3-8.2) 07/13/19 Unknown Albumin 4.0 g/dL (3.9-5) 07/13/19 Unknown Albumin/Globulin Ratio 1.5 % 07/13/19 Unknown Lipase 10 units/L (13-60) L 07/13/19 Unknown Urine Color Yellow (Yellow) 07/13/19 Unknown Urine Turbidity Clear (Clear) 07/13/19 Unknown Urine pH 5.0 (5.0-7.0) 07/13/19 Unknown Ur Specific [place] 1.018 (1.003-1.030) 07/13/19 Unknown Urine Protein <15 mg/dl mg/dL (Negative) 07/13/19 Unknown Urine Glucose (UA) Neg mg/dL (Negative) 07/13/19 Unknown Urine Ketones Neg mg/dL (Negative) 07/13/19 Unknown Urine Blood Neg (Negative) 07/13/19 Unknown Urine Nitrite Neg (Negative) 07/13/19 Unknown Urine Bilirubin Neg (Negative) 07/13/19 Unknown Urine Urobilinogen < 2.0 mg/dL (<2.0) 07/13/19 Unknown Ur Leukocyte Esterase Neg (Negative) 07/13/19 Unknown Urine WBC (Auto) < 1.0 /HPF (0.0-6.0) 07/13/19 Unknown Urine RBC (Auto) 4.0 /HPF (0.0-6.0) 07/13/19 Unknown U Epithel Cells (Auto) 1.0 /HPF (0-13.0) 07/13/19 Unknown Urine Bacteria (Auto) 1+ /HPF (Negative) 07/13/19 Unknown Urine Mucus Few /HPF 07/13/19 Unknown Blood Type O POSITIVE 07/13/19 22:45 Antibody Screen Negative 07/13/19 22:45 Crossmatch See Detail 07/13/19 22:45 Active Medications - Current Medications Current Medications: Generic Name Dose Route Start Last Admin Trade Name Freq PRN Reason Stop Dose Admin Acetaminophen 650 mg 07/14/19 02:29 07/14/19 19:01 Tylenol PO 650 mg Q4H PRN Administration Pain MILD(1-3)/Fever >100.5/COLUNGA Dextrose 0 ml 07/14/19 02:52 D50w (25gm) Syringe IV Q30MIN PRN Hypoglycemia Diphenhydramine HCl 25 mg 07/16/19 03:36 Benadryl IV Q6H PRN Itching Metronidazole 500 mg in 100 mls @ 100 mls/hr 07/14/19 02:00 07/16/19 10:54 Flagyl 500 Mg/100 Ml IV 100 mls/hr Q8H XOCHITL Administration Protocol Cefepime HCl 2 gm in 100 mls @ 200 mls/hr 07/14/19 14:00 07/16/19 10:54 Cefepime/Ns 2 Gm/100 Ml IV 200 mls/hr Q12HR XOCHITL Administration Protocol Insulin Human Lispro 0 unit 07/14/19 07:30 07/16/19 11:35 Humalog SUB-Q Not Given ACHS XOCHITL Protocol Morphine Sulfate 2 mg 07/14/19 02:29 07/16/19 08:19 Morphine IV 2 mg Q4H PRN Administration Pain, Moderate (4-6) Ondansetron HCl 4 mg 07/14/19 02:46 Zofran IV Q4H PRN Nausea And Vomiting Sodium Chloride 10 ml 07/14/19 10:00 07/16/19 10:55 Sodium Chloride Flush Syringe 10 Ml IV 10 ml BID XOCHITL Administration Sodium Chloride 10 ml 07/14/19 02:29 07/16/19 08:19 Sodium Chloride Flush Syringe 10 Ml IV 10 ml PRN PRN Administration LINE FLUSH Tbo-Filgrastim 300 mcg 07/16/19 10:00 07/16/19 10:54 Granix SUB-Q 300 mcg QDAY XOCHITL Administration
--- NOTE | 2019-07-16 15:34 | Hem/Onc Progress Note ---
Assessment and Plan 1. Anemia, leukopenia, thrombocytopenia. 2. Bone marrow biopsy in March and had shown 90% to 100% cellularity with MDS. 3. Radiology shows hepatosplenomegaly with spleen lesions. 4. Transfusion support. 5. The patient on G-CSF support. 6. PICC line. 7. History of methicillin-resistant Staphylococcus aureus in the finger. 8. History of hypertension. 9. History of diabetes. 10. In the past, ejection fraction was 40-45%. pt has got 3 cycles of chemo usually we wait for 4 cycles to decide if the treatment is working or not on transfusion support - optionof repeat BMBX? 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 Subjective Date of service: 07/16/19 Principal diagnosis: MDS Interval history: no fever - no bleeding Objective - Exam Narrative Exam: Pain - none General appearance - on o2 Performance status limited self care Eyes - no icterus, ENT - no bleeding LNs cervical not palpable Neck - no LN Respiratory Normal Breath sounds - CTA anteriorly CVS S1 S2 + Extremities no tenderness General GI Soft Rectal deferred female - deferred Skin warm Musculoskeletal moves Neurologically awake - Constitutional Vitals: Last Vital Signs Temp 100.1 F H 07/16/19 12:00 Pulse 93 H 07/16/19 13:20 Resp 16 07/16/19 13:20 BP 122/36 07/16/19 13:20 Pulse Ox 97 07/16/19 13:20 - Labs Lab Results: Laboratory Results - last 24 hr 07/13/19 07/15/19 07/15/19 22:45 16:03 21:10 WBC RBC Hgb Hct MCV MCH MCHC RDW Plt Count POC Glucose 86 89 Blood Type O POSITIVE Antibody Screen Negative Crossmatch See Detail 07/16/19 07/16/19 07/16/19 08:33 11:49 12:10 WBC 0.2 L* RBC 1.74 L Hgb 5.3 L* Hct 15.7 L* D MCV 90 MCH 31 MCHC 34 RDW 17.4 H Plt Count 8 L* D POC Glucose 92 97 Blood Type Antibody Screen Crossmatch Medications & Allergies - Medications Allergies/Adverse Reactions: Allergies No Known Allergies Allergy (Verified 06/06/19 08:16) Home Medications: Home Medications Medication Instructions Recorded Confirmed Last Taken Type RX: Acetaminophen [Acetaminophen 500 mg PO Q6HR 05/26/19 07/14/19 07/13/19 History TAB] RX: Venlafaxine [Effexor] 75 mg PO BID 05/26/19 07/14/19 07/13/19 History RX: Amlodipine Besylate [Norvasc] 5 mg PO DAILY #30 tablet 05/28/19 07/14/19 07/13/19 Rx RX: HYDROcodone/APAP 5-325 [[place] 1 each PO Q6HR PRN #10 tablet 05/28/19 07/14/19 07/13/19 Rx 5-325 mg TAB] RX: Loratadine [Claritin] 10 mg PO DAILY #30 tablet 05/28/19 07/14/19 07/13/19 Rx RX: Metformin HCl [metFORMIN] 1,000 mg PO BID #60 tablet 05/28/19 07/14/19 07/13/19 Rx RX: Polyethylene Glycol 3350 17 gm PO QDAY #30 powd.pack 05/28/19 07/14/19 07/13/19 Rx [Miralax 3350] RX: ISOSORBIDE MONOnitrate [Imdur 30 mg PO QDAY #30 tablet 07/01/19 07/14/19 07/13/19 Rx ER] RX: Losartan [Cozaar] 50 mg PO QDAY #30 tablet 07/01/19 07/14/19 07/13/19 Rx RX: Metoprolol Xl [Metoprolol 25 mg PO QDAY #30 tablet 07/01/19 07/14/19 07/13/19 Rx SUCCINATE ER TAB] Active Medications: Generic Name Dose Route Start Last Admin Trade Name Lucianq PRN Reason Stop Dose Admin Acetaminophen 650 mg 07/14/19 02:29 07/14/19 19:01 Tylenol PO 650 mg Q4H PRN Administration Pain MILD(1-3)/Fever >100.5/COLUNGA Dextrose 0 ml 07/14/19 02:52 D50w (25gm) Syringe IV Q30MIN PRN Hypoglycemia Diphenhydramine HCl 25 mg 07/16/19 03:36 Benadryl IV Q6H PRN Itching Metronidazole 500 mg in 100 mls @ 100 mls/hr 07/14/19 02:00 07/16/19 10:54 Flagyl 500 Mg/100 Ml IV 100 mls/hr Q8H [facility] Administration Protocol Cefepime HCl 2 gm in 100 mls @ 200 mls/hr 07/14/19 14:00 07/16/19 10:54 Cefepime/Ns 2 Gm/100 Ml IV 200 mls/hr Q12HR [facility] Administration Protocol Insulin Human Lispro 0 unit 07/14/19 07:30 07/16/19 11:35 Humalog SUB-Q Not Given ACHS [facility] Protocol Morphine Sulfate 2 mg 07/14/19 02:29 07/16/19 08:19 Morphine IV 2 mg Q4H PRN Administration Pain, Moderate (4-6) Ondansetron HCl 4 mg 07/14/19 02:46 Zofran IV Q4H PRN Nausea And Vomiting Sodium Chloride 10 ml 07/14/19 10:00 07/16/19 10:55 Sodium Chloride Flush Syringe 10 Ml IV 10 ml BID [facility] Administration Sodium Chloride 10 ml 07/14/19 02:29 07/16/19 08:19 Sodium Chloride Flush Syringe 10 Ml IV 10 ml PRN PRN Administration LINE FLUSH Tbo-Filgrastim 300 mcg 07/16/19 10:00 07/16/19 10:54 Granix SUB-Q 300 mcg QDAY [facility] Administration
[2019-07-16] MEDS ORDERED: SODIUM CHLORIDE 0.9% 500 ML 500 ML IV ONE (17:19)
[2019-07-16] MEDS: ACETAMINOPHEN 325 MG TAB PO PRN (23:02)
[2019-07-17] MEDS: metroNIDAZOLE/NS 500 MG/100 ML 500 MG/100 ML BAG IV SCH (02:18)
[2019-07-17 05:17] LABS: Hematocrit 23.8 % (30.3-42.9); Hemoglobin 8.1 gm/dl (10.1-14.3); Mean Corpuscular HGB Conc 34 % (30-34); Mean Corpuscular Volume 90 fl (79-97); Red Blood Count 2.65 M/mm3 (3.65-5.03); Red Cell Distribution Width 16.7 % (13.2-15.2)
--- NOTE | 2019-07-17 05:48 | Progress Note ---
Assessment and Plan Assessment and plan: Patient is a 78-year-old woman with a history of MDS with multiple blood transfusions, hypertension, diabetes, immunocompromised state on chemotherapy who follows with Dr. Gonsales admitted with: Severe thrombocytopenia: needing plt transfusion Acute on chronic anemia s/p blood transfusion> monitor CBC closely Acute diverticulitis of the distal sigmoid colon: CT reported no perforation or abscess. Treat with empiric abx. 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 On G-CSF Multiple splenic lesions: ?related to her hematologic disease, Dr. Gonsales is following Right index finger abscess: much improved, no abx needed. Continue wound care. total of 5 units PRBC transfused and total of 4 units of pheresis platelet given. CBC pending==>plt count is 5, give another 1 unit of plt severe Headache 09/30: get stat CT head r/o spontaneous bleed History Interval history: Patient was seen and examined. Follow-up on current diagnosis left sided abdominal pains with nausea. No overnight events reported to me. Patient denies any chest pain, shortness breath, or severe headaches. Imaging, nursing note, chart, labs and old chart reviewed. Discussed with patient. Hospitalist Physical - Physical exam Narrative exam: Gen: WDWN, NAD, Awake, Alert, Orientated HEENT: NCAT, EOMI, PERRL, OP Clear Neck: supple, no adenopathy, no thyromegaly, no JVD CVS/Heart: RRR, normal S1S2, pulses present bilaterally Chest/Lungs: CTA B, Symmetrical chest expansion, good air entry bilaterally GI/Abdomen: soft, left side abd tenderness, good bowel sounds, no guarding or r ebound /Bladder: no suprapubic tenderness, no CVA or paraspinal tenderness Extermity/Skin: no c/c/e, no obvious rash MSK: FROM x 4 Neuro: CN 2-12 grossly intact, no new focal deficits Psych: calm - Constitutional Vitals: Temp Pulse Resp BP Pulse Ox 98.2 F 65 17 134/43 96 07/17/19 00:00 07/17/19 04:30 07/17/19 04:30 07/17/19 04:30 07/17/19 04:30 Results - Labs CBC & Chem 7: 07/17/19 04:17 07/15/19 09:48 Labs: Laboratory Last Values WBC 0.2 K/mm3 (4.5-11.0) L* 07/16/19 12:10 RBC 1.74 M/mm3 (3.65-5.03) L 07/16/19 12:10 Hgb 5.3 gm/dl (10.1-14.3) L* 07/16/19 12:10 Hct 15.7 % (30.3-42.9) L* D 07/16/19 12:10 MCV 90 fl (79-97) 07/16/19 12:10 MCH 31 pg (28-32) 07/16/19 12:10 MCHC 34 % (30-34) 07/16/19 12:10 RDW 17.4 % (13.2-15.2) H 07/16/19 12:10 Plt Count 8 K/mm3 (140-440) L* D 07/16/19 12:10 Lymph % (Auto) [place] Up 07/14/19 04:19 Add Manual Diff Complete 07/14/19 04:19 Total Counted 67 07/14/19 04:19 Seg Neutrophils % Caser Up 07/14/19 04:19 Seg Neuts % (Manual) 1.5 % (40.0-70.0) L 07/14/19 04:19 Band Neutrophils % 0 % 07/14/19 04:19 Lymphocytes % (Manual) 98.5 % (13.4-35.0) H 07/14/19 04:19 Reactive Lymphs % (Man) 0 % 07/14/19 04:19 Monocytes % (Manual) 0 % (0.0-7.3) 07/14/19 04:19 Eosinophils % (Manual) 0 % (0.0-4.3) 07/14/19 04:19 Basophils % (Manual) 0 % (0.0-1.8) 07/14/19 04:19 Metamyelocytes % 0 % 07/14/19 04:19 Myelocytes % 0 % 07/14/19 04:19 Promyelocytes % 0 % 07/14/19 04:19 Blast Cells % 0 % 07/14/19 04:19 Nucleated RBC % Not Reportable 07/14/19 04:19 Seg Neutrophils # Man 0.0 K/mm3 (1.8-7.7) L 07/14/19 04:19 Band Neutrophils # 0.0 K/mm3 07/14/19 04:19 Lymphocytes # (Manual) 0.2 K/mm3 (1.2-5.4) L 07/14/19 04:19 Abs React Lymphs (Man) 0.0 K/mm3 07/14/19 04:19 Monocytes # (Manual) 0.0 K/mm3 (0.0-0.8) 07/14/19 04:19 Eosinophils # (Manual) 0.0 K/mm3 (0.0-0.4) 07/14/19 04:19 Basophils # (Manual) 0.0 K/mm3 (0.0-0.1) 07/14/19 04:19 Metamyelocytes # 0.0 K/mm3 07/14/19 04:19 Myelocytes # 0.0 K/mm3 07/14/19 04:19 Promyelocytes # 0.0 K/mm3 07/14/19 04:19 Blast Cells # 0.0 K/mm3 07/14/19 04:19 WBC Morphology Not Reportable 07/14/19 04:19 Hypersegmented Neuts Not Reportable 07/14/19 04:19 Hyposegmented Neuts Not Reportable 07/14/19 04:19 Hypogranular Neuts Not Reportable 07/14/19 04:19 Smudge Cells Not Reportable 07/14/19 04:19 Toxic Granulation Not Reportable 07/14/19 04:19 Toxic Vacuolation Not Reportable 07/14/19 04:19 Dohle Bodies Not Reportable 07/14/19 04:19 Pelger-Huet Anomaly Not Reportable 07/14/19 04:19 Pao Rods Not Reportable 07/14/19 04:19 Platelet Estimate Consistent w auto 07/14/19 04:19 Clumped Platelets Not Reportable 07/14/19 04:19 Plt Clumps, EDTA Not Reportable 07/14/19 04:19 Large Platelets Not Reportable 07/14/19 04:19 Giant Platelets Not Reportable 07/14/19 04:19 Platelet Satelliting Not Reportable 07/14/19 04:19 Plt Morphology Comment Not Reportable 07/14/19 04:19 RBC Morphology Not Reportable 07/14/19 04:19 Dimorphic RBCs Not Reportable 07/14/19 04:19 Polychromasia Not Reportable 07/14/19 04:19 Hypochromasia Not Reportable 07/14/19 04:19 Poikilocytosis Not Reportable 07/14/19 04:19 Anisocytosis 1+ 07/14/19 04:19 Microcytosis Not Reportable 07/14/19 04:19 Macrocytosis 1+ 07/14/19 04:19 Spherocytes Not Reportable 07/14/19 04:19 Pappenheimer Bodies Not Reportable 07/14/19 04:19 Sickle Cells Not Reportable 07/14/19 04:19 Target Cells Not Reportable 07/14/19 04:19 Tear Drop Cells Few 07/14/19 04:19 Ovalocytes Few 07/14/19 04:19 Helmet Cells Not Reportable 07/14/19 04:19 [place] Bodies Not Reportable 07/14/19 04:19 [place] Rings Not Reportable 07/14/19 04:19 [place] Cells Not Reportable 07/14/19 04:19 Bite Cells Not Reportable 07/14/19 04:19 Crenated Cell Not Reportable 07/14/19 04:19 Elliptocytes Not Reportable 07/14/19 04:19 Acanthocytes (Spur) Not Reportable 07/14/19 04:19 Rouleaux Not Reportable 07/14/19 04:19 Hemoglobin C Crystals Not Reportable 07/14/19 04:19 Schistocytes Few 07/14/19 04:19 Malaria parasites Not Reportable 07/14/19 04:19 Chung Bodies Not Reportable 07/14/19 04:19 Hem Pathologist Commnt No 07/14/19 04:19 PT 16.5 Sec. (12.2-14.9) H 07/13/19 Unknown INR 1.35 (0.87-1.13) H 07/13/19 Unknown APTT 38.0 Sec. (24.2-36.6) H 07/13/19 Unknown Sodium 137 mmol/L (137-145) 07/15/19 09:48 Potassium 4.7 mmol/L (3.6-5.0) 07/15/19 09:48 Chloride 108.3 mmol/L (98-107) H 07/15/19 09:48 Carbon Dioxide 15 mmol/L (22-30) L 07/15/19 09:48 Anion Gap 18 mmol/L 07/15/19 09:48 BUN 26 mg/dL (7-17) H 07/15/19 09:48 Creatinine 0.8 mg/dL (0.7-1.2) 07/15/19 09:48 Estimated GFR > 60 ml/min 07/15/19 09:48 BUN/Creatinine Ratio 33 % 07/15/19 09:48 Glucose 96 mg/dL (65-100) 07/15/19 09:48 POC Glucose 112 (70-105) H 07/16/19 21:56 Calcium 8.4 mg/dL (8.4-10.2) D 07/15/19 09:48 Magnesium 2.20 mg/dL (1.7-2.3) 07/13/19 Unknown Total Bilirubin 0.80 mg/dL (0.1-1.2) 07/13/19 Unknown AST < 5 units/L (5-40) L 07/13/19 Unknown ALT < 5 units/L (7-56) L 07/13/19 Unknown Alkaline Phosphatase 67 units/L (35-129) 07/13/19 Unknown Total Creatine Kinase 8 units/L (30-135) L 07/13/19 Unknown Total Protein 6.7 g/dL (6.3-8.2) 07/13/19 Unknown Albumin 4.0 g/dL (3.9-5) 07/13/19 Unknown Albumin/Globulin Ratio 1.5 % 07/13/19 Unknown Lipase 10 units/L (13-60) L 07/13/19 Unknown Urine Color Yellow (Yellow) 07/13/19 Unknown Urine Turbidity Clear (Clear) 07/13/19 Unknown Urine pH 5.0 (5.0-7.0) 07/13/19 Unknown Ur Specific [place] 1.018 (1.003-1.030) 07/13/19 Unknown Urine Protein <15 mg/dl mg/dL (Negative) 07/13/19 Unknown Urine Glucose (UA) Neg mg/dL (Negative) 07/13/19 Unknown Urine Ketones Neg mg/dL (Negative) 07/13/19 Unknown Urine Blood Neg (Negative) 07/13/19 Unknown Urine Nitrite Neg (Negative) 07/13/19 Unknown Urine Bilirubin Neg (Negative) 07/13/19 Unknown Urine Urobilinogen < 2.0 mg/dL (<2.0) 07/13/19 Unknown Ur Leukocyte Esterase Neg (Negative) 07/13/19 Unknown Urine WBC (Auto) < 1.0 /HPF (0.0-6.0) 07/13/19 Unknown Urine RBC (Auto) 4.0 /HPF (0.0-6.0) 07/13/19 Unknown U Epithel Cells (Auto) 1.0 /HPF (0-13.0) 07/13/19 Unknown Urine Bacteria (Auto) 1+ /HPF (Negative) 07/13/19 Unknown Urine Mucus Few /HPF 07/13/19 Unknown Blood Type O POSITIVE 07/13/19 22:45 Antibody Screen Negative 07/13/19 22:45 Crossmatch See Detail 07/13/19 22:45 Active Medications - Current Medications Current Medications: Generic Name Dose Route Start Last Admin Trade Name Freq PRN Reason Stop Dose Admin Acetaminophen 650 mg 07/14/19 02:29 07/16/19 23:02 Tylenol PO 650 mg Q4H PRN Administration Pain MILD(1-3)/Fever >100.5/COLUNGA Dextrose 0 ml 07/14/19 02:52 D50w (25gm) Syringe IV Q30MIN PRN Hypoglycemia Diphenhydramine HCl 25 mg 07/16/19 03:36 Benadryl IV Q6H PRN Itching Metronidazole 500 mg in 100 mls @ 100 mls/hr 07/14/19 02:00 07/17/19 02:18 Flagyl 500 Mg/100 Ml IV 100 mls/hr Q8H [facility] Administration Protocol Cefepime HCl 2 gm in 100 mls @ 200 mls/hr 07/14/19 14:00 07/16/19 21:03 Cefepime/Ns 2 Gm/100 Ml IV 200 mls/hr Q12HR [facility] Administration Protocol Insulin Human Lispro 0 unit 07/14/19 07:30 07/16/19 22:27 Humalog SUB-Q Not Given ACHS [facility] Protocol Morphine Sulfate 2 mg 07/14/19 02:29 07/16/19 21:03 Morphine IV 2 mg Q4H PRN Administration Pain, Moderate (4-6) Ondansetron HCl 4 mg 07/14/19 02:46 Zofran IV Q4H PRN Nausea And Vomiting Sodium Chloride 10 ml 07/14/19 10:00 07/16/19 21:04 Sodium Chloride Flush Syringe 10 Ml IV 10 ml BID [facility] Administration Sodium Chloride 10 ml 07/14/19 02:29 07/16/19 08:19 Sodium Chloride Flush Syringe 10 Ml IV 10 ml PRN PRN Administration LINE FLUSH Tbo-Filgrastim 300 mcg 07/16/19 10:00 07/16/19 10:54 Granix SUB-Q 300 mcg QDAY [facility] Administration
[2019-07-17 05:57] LABS: Platelet Count 5 K/mm3 (140-440)
[2019-07-17] MEDS ORDERED: SODIUM CHLORIDE 0.9% 500 ML 500 ML IV ONE (06:05)
[2019-07-17] MEDS: INSULIN LISPRO 100 UNIT/ML SUB-Q SCH ×4 (08:45→21:40)
--- NOTE | 2019-07-17 08:55 | Cat Scan Report ---
CT OF THE HEAD WITHOUT CONTRAST INDICATION / CLINICAL INFORMATION: Severe headache. TECHNIQUE: All CT scans at this location are performed using CT dose reduction for ALARA by means of automated e xposure control. COMPARISON: 06/07/2019. FINDINGS: The ventricular system is normal in size and configuration. There are mild patchy small vessel ischem ic changes in the periventricular white matter, left greater than right. No focal lesion or mass effe ct is seen. There is no evidence of intracranial hemorrhage or major vessel occlusion. The calvarium is intact. There is moderate mucosal thickening involving the ethmoid air cells bilater ally, new since the prior exam. There is also milder mucosal thickening involving both maxillary sinu ses. The frontal and sphenoid sinuses are hypoplastic. Mastoid air cells are clear. IMPRESSION: 1. No acute intracranial abnormality. 2. Bilateral ethmoid and maxillary sinusitis. Signer Name: Yasir Alejandro MD Signed: 07/17/2019 8:51 AM Workstation Name: [id number]
[2019-07-17] MEDS: CEFEPIME/NS 2 GM/100 ML 2 GM/100 ML BAG IV SCH ×2 (09:43→21:40)
[2019-07-17] MEDS: TBO-FILGRASTIM 480 MCG/0.8 ML SUB-Q SCH (09:44)
[2019-07-17] MEDS: HYDROcodone/ACETAMINOPHEN 10-325MG TAB PO PRN ×2 (09:45→16:52)
[2019-07-17] MEDS: POLYETHYLENE GLYCOL 3350 17 GM POWDER PO PRN (09:45)
[2019-07-17] MEDS ORDERED: SODIUM CHLORIDE 0.9% 500 ML 500 ML ONE (14:57)
[2019-07-17] MEDS: MORPHINE 2 MG/1 ML INJ IV PRN (23:55)
[2019-07-18 05:06] LABS: Hematocrit 20.7 % (30.3-42.9); Mean Corpuscular HGB Conc 34 % (30-34); Mean Corpuscular Volume 90 fl (79-97); Red Cell Distribution Width 16.6 % (13.2-15.2)
[2019-07-18 05:20] LABS: BUN/Creatinine Ratio 27; Blood Urea Nitrogen 16 mg/dL (7-17); Calcium 8.1 mg/dL (8.4-10.2); Hemolysis Index 4
[2019-07-18 05:26] LABS: Platelet Count 5 K/mm3 (140-440)
[2019-07-18] MEDS ORDERED: SODIUM CHLORIDE 0.9% 500 ML 500 ML IV ONE (05:37)
--- NOTE | 2019-07-18 05:39 | Event Note ---
Date: 07/18/19 Platelet count of 5 this morning (remains same as yesterday after receiving a unit of platelets). Ordered 1 unit platelet
--- NOTE | 2019-07-18 07:17 | Progress Note ---
Assessment and Plan Assessment and plan: Patient is a 78-year-old AA woman with a history of MDS with multiple blood transfusions, Depression, hypertension, immunocompromised state on chemotherapy who follows with Dr. Gonsales who presented with Left sided abdominal pains * CT abd/pelvis with contrast IMPRESSION: 1. Acute diverticulitis of the distal sigmoid colon. 2. Hepatosplenomegaly, as above. There are multiple lesions identified throughout the spleen that are ultimately nonspecific given the enhancement pattern * CT head without contrast IMPRESSION: 1. No acute intracranial abnormality. 2. Bilateral ethmoid and maxillary sinusitis. * FOBT negative Acute diverticulitis of the distal sigmoid colon: treat with IVF but change Cefepime to Levaquin because of the Cytopenias not improving with blood transfusion, flagyl fell off of the MAR, ID was following. MDS: Dr. 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 On G-CSF Multiple splenic lesions==>HSM related to her hematologic disease, Dr. Gonsales is following Right index finger abscess: much improved, no abx needed. Continue wound care. Hypertension: low salt diet, hold antihypertensives due to anemia Type 2 DM: blood glucose has been stable, off metformin and ssi. Depression: continue Effexor Constipation: Miralax DVT prophylaxis: scd only due to anemia full code Still in IMCU CCT 32 minutes History Interval history: Patient was seen and examined. Follow-up on current diagnosis Diverticulitis. No overnight events reported to me. Patient denies any chest pain, shortness breath, or severe headaches. Imaging, nursing note, chart, labs and old chart reviewed. Discussed with patient. Hospitalist Physical - Physical exam Narrative exam: Gen: WDWN, NAD, Awake, Alert, Orientated HEENT: NCAT, EOMI, PERRL, OP Clear Neck: supple, no adenopathy, no thyromegaly, no JVD CVS/Heart: RRR, normal S1S2, pulses present bilaterally Chest/Lungs: CTA B, Symmetrical chest expansion, good air entry bilaterally GI/Abdomen: soft, left side abd tenderness, good bowel sounds, no guarding or rebound /Bladder: no suprapubic tenderness, no CVA or paraspinal tenderness Extermity/Skin: no c/c/e, no obvious rash MSK: FROM x 4 Neuro: CN 2-12 grossly intact, no new focal deficits Psych: calm - Constitutional Vitals: Temp Pulse Resp BP Pulse Ox 98.9 F 63 16 111/39 96 07/18/19 04:00 07/18/19 06:16 07/18/19 06:16 07/18/19 06:16 07/18/19 06:16 Results - Labs CBC & Chem 7: 07/18/19 04:11 07/18/19 04:11 Labs: Laboratory Last Values WBC 0.1 K/mm3 (4.5-11.0) L* 07/18/19 04:11 RBC 2.30 M/mm3 (3.65-5.03) L 07/18/19 04:11 Hgb 7.0 gm/dl (10.1-14.3) L 07/18/19 04:11 Hct 20.7 % (30.3-42.9) L 07/18/19 04:11 MCV 90 fl (79-97) 07/18/19 04:11 MCH 31 pg (28-32) 07/18/19 04:11 MCHC 34 % (30-34) 07/18/19 04:11 RDW 16.6 % (13.2-15.2) H 07/18/19 04:11 Plt Count 5 K/mm3 (140-440) L* 07/18/19 04:11 Lymph % (Auto) Mac Operator 07/14/19 04:19 Add Manual Diff Complete 07/14/19 04:19 Total Counted 67 07/14/19 04:19 Seg Neutrophils % Mac Operator 07/14/19 04:19 Seg Neuts % (Manual) 1.5 % (40.0-70.0) L 07/14/19 04:19 Band Neutrophils % 0 % 07/14/19 04:19 Lymphocytes % (Manual) 98.5 % (13.4-35.0) H 07/14/19 04:19 Reactive Lymphs % (Man) 0 % 07/14/19 04:19 Monocytes % (Manual) 0 % (0.0-7.3) 07/14/19 04:19 Eosinophils % (Manual) 0 % (0.0-4.3) 07/14/19 04:19 Basophils % (Manual) 0 % (0.0-1.8) 07/14/19 04:19 Metamyelocytes % 0 % 07/14/19 04:19 Myelocytes % 0 % 07/14/19 04:19 Promyelocytes % 0 % 07/14/19 04:19 Blast Cells % 0 % 07/14/19 04:19 Nucleated RBC % Not Reportable 07/14/19 04:19 Seg Neutrophils # Man 0.0 K/mm3 (1.8-7.7) L 07/14/19 04:19 Band Neutrophils # 0.0 K/mm3 07/14/19 04:19 Lymphocytes # (Manual) 0.2 K/mm3 (1.2-5.4) L 07/14/19 04:19 Abs React Lymphs (Man) 0.0 K/mm3 07/14/19 04:19 Monocytes # (Manual) 0.0 K/mm3 (0.0-0.8) 07/14/19 04:19 Eosinophils # (Manual) 0.0 K/mm3 (0.0-0.4) 07/14/19 04:19 Basophils # (Manual) 0.0 K/mm3 (0.0-0.1) 07/14/19 04:19 Metamyelocytes # 0.0 K/mm3 07/14/19 04:19 Myelocytes # 0.0 K/mm3 07/14/19 04:19 Promyelocytes # 0.0 K/mm3 07/14/19 04:19 Blast Cells # 0.0 K/mm3 07/14/19 04:19 WBC Morphology Not Reportable 07/14/19 04:19 Hypersegmented Neuts Not Reportable 07/14/19 04:19 Hyposegmented Neuts Not Reportable 07/14/19 04:19 Hypogranular Neuts Not Reportable 07/14/19 04:19 Smudge Cells Not Reportable 07/14/19 04:19 Toxic Granulation Not Reportable 07/14/19 04:19 Toxic Vacuolation Not Reportable 07/14/19 04:19 Dohle Bodies Not Reportable 07/14/19 04:19 Pelger-Huet Anomaly Not Reportable 07/14/19 04:19 Pao Rods Not Reportable 07/14/19 04:19 Platelet Estimate Consistent w auto 07/14/19 04:19 Clumped Platelets Not Reportable 07/14/19 04:19 Plt Clumps, EDTA Not Reportable 07/14/19 04:19 Large Platelets Not Reportable 07/14/19 04:19 Giant Platelets Not Reportable 07/14/19 04:19 Platelet Satelliting Not Reportable 07/14/19 04:19 Plt Morphology Comment Not Reportable 07/14/19 04:19 RBC Morphology Not Reportable 07/14/19 04:19 Dimorphic RBCs Not Reportable 07/14/19 04:19 Polychromasia Not Reportable 07/14/19 04:19 Hypochromasia Not Reportable 07/14/19 04:19 Poikilocytosis Not Reportable 07/14/19 04:19 Anisocytosis 1+ 07/14/19 04:19 Microcytosis Not Reportable 07/14/19 04:19 Macrocytosis 1+ 07/14/19 04:19 Spherocytes Not Reportable 07/14/19 04:19 Pappenheimer Bodies Not Reportable 07/14/19 04:19 Sickle Cells Not Reportable 07/14/19 04:19 Target Cells Not Reportable 07/14/19 04:19 Tear Drop Cells Few 07/14/19 04:19 Ovalocytes Few 07/14/19 04:19 Helmet Cells Not Reportable 07/14/19 04:19 [place] Bodies Not Reportable 07/14/19 04:19 [place] Rings Not Reportable 07/14/19 04:19 Manuel Cells Not Reportable 07/14/19 04:19 Bite Cells Not Reportable 07/14/19 04:19 Crenated Cell Not Reportable 07/14/19 04:19 Elliptocytes Not Reportable 07/14/19 04:19 Acanthocytes (Spur) Not Reportable 07/14/19 04:19 Rouleaux Not Reportable 07/14/19 04:19 Hemoglobin C Crystals Not Reportable 07/14/19 04:19 Schistocytes Few 07/14/19 04:19 Malaria parasites Not Reportable 07/14/19 04:19 Chung Bodies Not Reportable 07/14/19 04:19 Hem Pathologist Commnt No 07/14/19 04:19 PT 16.5 Sec. (12.2-14.9) H 07/13/19 Unknown INR 1.35 (0.87-1.13) H 07/13/19 Unknown APTT 38.0 Sec. (24.2-36.6) H 07/13/19 Unknown Sodium 137 mmol/L (137-145) 07/18/19 04:11 Potassium 3.9 mmol/L (3.6-5.0) 07/18/19 04:11 Chloride 107.9 mmol/L (98-107) H 07/18/19 04:11 Carbon Dioxide 20 mmol/L (22-30) L 07/18/19 04:11 Anion Gap 13 mmol/L 07/18/19 04:11 BUN 16 mg/dL (7-17) 07/18/19 04:11 Creatinine 0.6 mg/dL (0.7-1.2) L 07/18/19 04:11 Estimated GFR > 60 ml/min 07/18/19 04:11 BUN/Creatinine Ratio 27 % 07/18/19 04:11 Glucose 104 mg/dL (65-100) H 07/18/19 04:11 POC Glucose 108 (70-105) H 07/17/19 21:18 Calcium 8.1 mg/dL (8.4-10.2) L 07/18/19 04:11 Magnesium 2.20 mg/dL (1.7-2.3) 07/13/19 Unknown Total Bilirubin 0.80 mg/dL (0.1-1.2) 07/13/19 Unknown AST < 5 units/L (5-40) L 07/13/19 Unknown ALT < 5 units/L (7-56) L 07/13/19 Unknown Alkaline Phosphatase 67 units/L (35-129) 07/13/19 Unknown Total Creatine Kinase 8 units/L (30-135) L 07/13/19 Unknown Total Protein 6.7 g/dL (6.3-8.2) 07/13/19 Unknown Albumin 4.0 g/dL (3.9-5) 07/13/19 Unknown Albumin/Globulin Ratio 1.5 % 07/13/19 Unknown Lipase 10 units/L (13-60) L 07/13/19 Unknown Urine Color Yellow (Yellow) 07/13/19 Unknown Urine Turbidity Clear (Clear) 07/13/19 Unknown Urine pH 5.0 (5.0-7.0) 07/13/19 Unknown Ur Specific [place] 1.018 (1.003-1.030) 07/13/19 Unknown Urine Protein <15 mg/dl mg/dL (Negative) 07/13/19 Unknown Urine Glucose (UA) Neg mg/dL (Negative) 07/13/19 Unknown Urine Ketones Neg mg/dL (Negative) 07/13/19 Unknown Urine Blood Neg (Negative) 07/13/19 Unknown Urine Nitrite Neg (Negative) 07/13/19 Unknown Urine Bilirubin Neg (Negative) 07/13/19 Unknown Urine Urobilinogen < 2.0 mg/dL (<2.0) 07/13/19 Unknown Ur Leukocyte Esterase Neg (Negative) 07/13/19 Unknown Urine WBC (Auto) < 1.0 /HPF (0.0-6.0) 07/13/19 Unknown Urine RBC (Auto) 4.0 /HPF (0.0-6.0) 07/13/19 Unknown U Epithel Cells (Auto) 1.0 /HPF (0-13.0) 07/13/19 Unknown Urine Bacteria (Auto) 1+ /HPF (Negative) 07/13/19 Unknown Urine Mucus Few /HPF 07/13/19 Unknown Blood Type O POSITIVE 07/17/19 06:36 Antibody Screen Negative 07/13/19 22:45 Crossmatch See Detail 07/13/19 22:45 Active Medications - Current Medications Current Medications: Generic Name Dose Route Start Last Admin Trade Name Lucianq PRN Reason Stop Dose Admin Acetaminophen 650 mg 07/14/19 02:29 07/16/19 23:02 Tylenol PO 650 mg Q4H PRN Administration Pain MILD(1-3)/Fever >100.5/COLUNGA Acetaminophen/Hydrocodone Bitart 1 each 07/17/19 07:39 07/17/19 16:52 [place] 10/325 PO 1 each Q4H PRN Administration Pain , Severe (7-10) Dextrose 0 ml 07/14/19 02:52 D50w (25gm) Syringe IV Q30MIN PRN Hypoglycemia Diphenhydramine HCl 25 mg 07/16/19 03:36 Benadryl IV Q6H PRN Itching Levofloxacin/Dextrose 750 mg in 150 mls @ 100 mls/hr 07/18/19 10:00 Levaquin 750mg/150ml IV Q24HR [facility] Protocol Insulin Human Lispro 0 unit 07/14/19 07:30 07/17/19 21:40 Humalog SUB-Q Not Given ACHS [facility] Protocol Morphine Sulfate 2 mg 07/14/19 02:29 07/17/19 23:55 Morphine IV 2 mg Q4H PRN Administration Pain, Moderate (4-6) Ondansetron HCl 4 mg 07/14/19 02:46 Zofran IV Q4H PRN Nausea And Vomiting Polyethylene Glycol 17 gm 07/17/19 07:39 07/17/19 09:45 Miralax 3350 PO 17 gm QDAY PRN Administration Constipation Sodium Chloride 10 ml 07/14/19 10:00 07/17/19 21:40 Sodium Chloride Flush Syringe 10 Ml IV 10 ml BID [facility] Administration Sodium Chloride 10 ml 07/14/19 02:29 07/16/19 08:19 Sodium Chloride Flush Syringe 10 Ml IV 10 ml PRN PRN Administration LINE FLUSH Tbo-Filgrastim 300 mcg 07/16/19 10:00 07/17/19 09:44 Granix SUB-Q 300 mcg QDAY [facility] Administration
[2019-07-18] MEDS: INSULIN LISPRO 100 UNIT/ML SUB-Q SCH ×4 (07:30→22:46)
--- NOTE | 2019-07-18 07:55 | Hem/Onc Progress Note ---
Assessment and Plan 1. Anemia, leukopenia, thrombocytopenia. 2. Bone marrow biopsy in March and had shown 90% to 100% cellularity with MDS. 3. Radiology shows hepatosplenomegaly with spleen lesions. 4. Transfusion support. 5. The patient on G-CSF support. 6. PICC line. 7. History of methicillin-resistant Staphylococcus aureus in the finger. 8. History of hypertension. 9. History of diabetes. 10. In the past, ejection fraction was 40-45%. pt has got 3 cycles of chemo usually we wait for 4 cycles to decide if the treatment is working or not on transfusion support PRN - gCSF d/w pt reg BMBX 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 Subjective Date of service: 07/18/19 Principal diagnosis: mds Interval history: no bleeding - pt on gcsf Objective - Exam Narrative Exam: Pain - none General appearance - on o2 Performance status limited self care Eyes - no icterus, ENT - no bleeding LNs cervical not palpable Neck - no LN Respiratory Normal Breath sounds - CTA anteriorly CVS S1 S2 + Extremities no tenderness General GI Soft Rectal deferred female - deferred Skin warm Musculoskeletal moves Neurologically awake - Constitutional Vitals: Last Vital Signs Temp 98.9 F 07/18/19 04:00 Pulse 63 07/18/19 06:16 Resp 16 07/18/19 06:16 BP 111/39 07/18/19 06:16 Pulse Ox 96 07/18/19 06:16 - Labs Lab Results: Laboratory Results - last 24 hr 07/17/19 07/17/19 07/17/19 06:36 08:43 12:04 WBC RBC Hgb Hct MCV MCH MCHC RDW Plt Count Sodium Potassium Chloride Carbon Dioxide Anion Gap BUN Creatinine Estimated GFR BUN/Creatinine Ratio Glucose POC Glucose 119 H 120 H Calcium Blood Type O POSITIVE 07/17/19 07/17/19 07/18/19 16:26 21:18 04:11 WBC 0.1 L* RBC 2.30 L Hgb 7.0 L Hct 20.7 L MCV 90 MCH 31 MCHC 34 RDW 16.6 H Plt Count 5 L* Sodium Potassium Chloride Carbon Dioxide Anion Gap BUN Creatinine Estimated GFR BUN/Creatinine Ratio Glucose POC Glucose 119 H 108 H Calcium Blood Type 07/18/19 04:11 WBC RBC Hgb Hct MCV MCH MCHC RDW Plt Count Sodium 137 Potassium 3.9 Chloride 107.9 H Carbon Dioxide 20 L Anion Gap 13 BUN 16 Creatinine 0.6 L Estimated GFR > 60 BUN/Creatinine Ratio 27 Glucose 104 H POC Glucose Calcium 8.1 L Blood Type Medications & Allergies - Medications Allergies/Adverse Reactions: Allergies No Known Allergies Allergy (Verified 06/06/19 08:16) Home Medications: Home Medications Medication Instructions Recorded Confirmed Last Taken Type Acetaminophen [Acetaminophen TAB] 500 mg PO Q6HR 05/26/19 07/14/19 07/13/19 History Venlafaxine [Effexor] 75 mg PO BID 05/26/19 07/14/19 07/13/19 History Amlodipine Besylate [Norvasc] 5 mg PO DAILY #30 tablet 05/28/19 07/14/19 07/13/19 Rx HYDROcodone/APAP 5-325 [[place] 1 each PO Q6HR PRN #10 tablet 05/28/19 07/14/19 07/13/19 Rx 5-325 mg TAB] Loratadine [Claritin] 10 mg PO DAILY #30 tablet 05/28/19 07/14/19 07/13/19 Rx Metformin HCl [metFORMIN] 1,000 mg PO BID #60 tablet 05/28/19 07/14/19 07/13/19 Rx Polyethylene Glycol 3350 [Miralax 17 gm PO QDAY #30 powd.pack 05/28/19 07/14/19 07/13/19 Rx 3350] ISOSORBIDE MONOnitrate [Imdur ER] 30 mg PO QDAY #30 tablet 07/01/19 07/14/19 07/13/19 Rx Losartan [Cozaar] 50 mg PO QDAY #30 tablet 07/01/19 07/14/19 07/13/19 Rx Metoprolol Xl [Metoprolol 25 mg PO QDAY #30 tablet 07/01/19 07/14/19 07/13/19 Rx SUCCINATE ER TAB] Active Medications: Generic Name Dose Route Start Last Admin Trade Name Freq PRN Reason Stop Dose Admin Acetaminophen 650 mg 07/14/19 02:29 07/16/19 23:02 Tylenol PO 650 mg Q4H PRN Administration Pain MILD(1-3)/Fever >100.5/COLUNGA Acetaminophen/Hydrocodone Bitart 1 each 07/17/19 07:39 07/17/19 16:52 [place] 10/325 PO 1 each Q4H PRN Administration Pain , Severe (7-10) Dextrose 0 ml 07/14/19 02:52 D50w (25gm) Syringe IV Q30MIN PRN Hypoglycemia Diphenhydramine HCl 25 mg 07/16/19 03:36 Benadryl IV Q6H PRN Itching Levofloxacin/Dextrose 750 mg in 150 mls @ 100 mls/hr 07/18/19 10:00 Levaquin 750mg/150ml IV Q24HR [facility] Protocol Metronidazole 500 mg in 100 mls @ 100 mls/hr 07/18/19 08:00 Flagyl 500 Mg/100 Ml IV Q8HR [facility] Protocol Insulin Human Lispro 0 unit 07/14/19 07:30 07/17/19 21:40 Humalog SUB-Q Not Given ACHS [facility] Protocol Morphine Sulfate 2 mg 07/14/19 02:29 07/17/19 23:55 Morphine IV 2 mg Q4H PRN Administration Pain, Moderate (4-6) Ondansetron HCl 4 mg 07/14/19 02:46 Zofran IV Q4H PRN Nausea And Vomiting Polyethylene Glycol 17 gm 07/17/19 07:39 07/17/19 09:45 Miralax 3350 PO 17 gm QDAY PRN Administration Constipation Sodium Chloride 10 ml 07/14/19 10:00 07/17/19 21:40 Sodium Chloride Flush Syringe 10 Ml IV 10 ml BID XOCHITL Administration Sodium Chloride 10 ml 07/14/19 02:29 07/16/19 08:19 Sodium Chloride Flush Syringe 10 Ml IV 10 ml PRN PRN Administration LINE FLUSH Tbo-Filgrastim 300 mcg 07/16/19 10:00 07/17/19 09:44 Granix SUB-Q 300 mcg QDAY [facility] Administration Venlafaxine HCl 75 mg 07/18/19 10:00 Effexor PO BID [facility]
[2019-07-18] MEDS: metroNIDAZOLE/NS 500 MG/100 ML 500 MG/100 ML BAG IV SCH ×3 (08:36→21:29)
[2019-07-18] MEDS: TBO-FILGRASTIM 480 MCG/0.8 ML SUB-Q SCH (09:07)
[2019-07-18] MEDS: VENLAFAXINE 75 MG TAB PO SCH ×2 (10:09→21:28)
[2019-07-18] MEDS ORDERED: SODIUM CHLORIDE 0.9% 250ML 250 ML IV ONE (13:45)
[2019-07-18] MEDS: MORPHINE 2 MG/1 ML INJ IV PRN (14:37)
--- NOTE | 2019-07-18 16:00 | Progress Note ---
Assessment and Plan Cultures: None this admission A/P: 78-year-old female with MDS, hypertension, diabetes, immunocompromised, on chemotherapy follows with Dr. Gonsales admitted with: 1) Acute diverticulitis of the distal sigmoid colon: CT reported no perforation or abscess. Treat with empiric abx. 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 On G-CSF 3) Multiple splenic lesions: ?related to her hematologic disease. 4) R index finger abscess: much improved, no abx needed. Continue wound care. Recs: - ok to continue levofloxacin 750mg q24. I have re-added metronidazole 500mg q8h which fell off. - guarded prognosis. - afebrile Capo Jackson MD [facility] ([facility]) M: [phone] O: [phone] F: [phone] Subjective Date of service: 07/18/19 Principal diagnosis: mds Interval history: No acute change. Objective - Exam Narrative Exam: Constitutional: Alert, cooperative. No acute distress Head, Ears, Nose: Normocephalic, atraumatic. External ears, nose normal Eyes: Conjunctivae/corneas clear. No icterus. No ptosis. Neck: Supple, no meningeal signs Oral: no thrush Cardiovascular: S1, S2 normal. Respiratory: Good air entry, clear to auscultation bilaterally GI: Soft, LLQ tenderness; bowel sounds normal. No peritoneal signs Musculoskeletal: No pedal edema, no cyanosis. Left arm PICC +. Right index finger with small wound with dressing, no drainage, non tender Skin: No rash or abscess Hem/Lymphatic: No palpable cervical or supraclavicular nodes. No lymphangitis Psych: Mood ok. Affect normal Neurological: Awake, alert, oriented. No gross abnormality - Constitutional Vitals: Vital Signs Temp Pulse Resp BP Pulse Ox 98.8 F 77 20 115/22 88 07/18/19 14:22 07/18/19 14:15 07/18/19 14:15 07/18/19 14:15 07/18/19 14:15 Temperature -Last 24 Hours Temperature 98.8 F Temperature 98.9 F Temperature 98.4 F Temperature 98.7 F Temperature 98.9 F Temperature 98.9 F Temperature 99.5 F Temperature 98.4 F Temperature 99.1 F Temperature 99.1 F - Labs CBC & Chem 7: 07/18/19 04:11 07/18/19 04:11 Labs: Abnormal lab results 07/17/19 07/17/19 07/18/19 Range/Units 16:26 21:18 04:11 WBC 0.1 L* (4.5-11.0) K/mm3 RBC 2.30 L (3.65-5.03) M/mm3 Hgb 7.0 L (10.1-14.3) gm/dl Hct 20.7 L (30.3-42.9) % RDW 16.6 H (13.2-15.2) % Plt Count 5 L* (140-440) K/mm3 Chloride (98-107) mmol/L Carbon Dioxide (22-30) mmol/L Creatinine (0.7-1.2) mg/dL Glucose (65-100) mg/dL POC Glucose 119 H 108 H (70-105) Calcium (8.4-10.2) mg/dL 07/18/19 07/18/19 07/18/19 Range/Units 04:11 08:30 11:40 WBC (4.5-11.0) K/mm3 RBC (3.65-5.03) M/mm3 Hgb (10.1-14.3) gm/dl Hct (30.3-42.9) % RDW (13.2-15.2) % Plt Count (140-440) K/mm3 Chloride 107.9 H (98-107) mmol/L Carbon Dioxide 20 L (22-30) mmol/L Creatinine 0.6 L (0.7-1.2) mg/dL Glucose 104 H (65-100) mg/dL POC Glucose 108 H 122 H (70-105) Calcium 8.1 L (8.4-10.2) mg/dL
[2019-07-18] MEDS: HYDROcodone/ACETAMINOPHEN 10-325MG TAB PO PRN (19:57)
[2019-07-19] MEDS: metroNIDAZOLE/NS 500 MG/100 ML 500 MG/100 ML BAG IV SCH ×4 (05:10→21:23)
[2019-07-19] MEDS: INSULIN LISPRO 100 UNIT/ML SUB-Q SCH ×4 (07:45→22:34)
[2019-07-19] MEDS: MORPHINE 2 MG/1 ML INJ IV PRN (07:52)
--- NOTE | 2019-07-19 07:59 | Hem/Onc Progress Note ---
Assessment and Plan 1. Anemia, leukopenia, thrombocytopenia. 2. Bone marrow biopsy in March and had shown 90% to 100% cellularity with MDS. 3. Radiology shows hepatosplenomegaly with spleen lesions. 4. Transfusion support. 5. The patient on G-CSF support. 6. PICC line. 7. History of methicillin-resistant Staphylococcus aureus in the finger. 8. History of hypertension. 9. History of diabetes. 10. In the past, ejection fraction was 40-45%. pt has got 3 cycles of chemo usually we wait for 4 cycles to decide if the treatment is working or not on transfusion support PRN - gCSF d/w pt reg BMBX - plan for same today - as the counts are not responding 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 Subjective Date of service: 07/19/19 Principal diagnosis: MDS Interval history: due BMBx Objective - Exam Narrative Exam: Pain - none General appearance - on o2 Performance status limited self care Eyes - no icterus, ENT - no bleeding LNs cervical not palpable Neck - no LN Respiratory Normal Breath sounds - CTA anteriorly CVS S1 S2 + Extremities no tenderness General GI Soft Rectal deferred female - deferred Skin warm Musculoskeletal moves Neurologically awake - Constitutional Vitals: Last Vital Signs Temp 98.4 F 07/19/19 04:16 Pulse 74 07/19/19 06:45 Resp 28 H 07/19/19 06:45 BP 130/61 07/19/19 06:45 Pulse Ox 92 07/19/19 06:15 - Labs Lab Results: Laboratory Results - last 24 hr 07/18/19 07/18/19 07/18/19 08:30 11:40 16:43 POC Glucose 108 H 122 H 101 Troponin T 07/18/19 07/18/19 18:00 21:53 POC Glucose 86 Troponin T < 0.010 Medications & Allergies - Medications Allergies/Adverse Reactions: Allergies No Known Allergies Allergy (Verified 06/06/19 08:16) Home Medications: Home Medications Medication Instructions Recorded Confirmed Last Taken Type Acetaminophen [Acetaminophen TAB] 500 mg PO Q6HR 05/26/19 07/14/19 07/13/19 History Venlafaxine [Effexor] 75 mg PO BID 05/26/19 07/14/19 07/13/19 History Amlodipine Besylate [Norvasc] 5 mg PO DAILY #30 tablet 05/28/19 07/14/19 07/13/19 Rx HYDROcodone/APAP 5-325 [[place] 1 each PO Q6HR PRN #10 tablet 05/28/19 07/14/19 07/13/19 Rx 5-325 mg TAB] Loratadine [Claritin] 10 mg PO DAILY #30 tablet 05/28/19 07/14/19 07/13/19 Rx Metformin HCl [metFORMIN] 1,000 mg PO BID #60 tablet 05/28/19 07/14/19 07/13/19 Rx Polyethylene Glycol 3350 [Miralax 17 gm PO QDAY #30 powd.pack 05/28/19 07/14/19 07/13/19 Rx 3350] ISOSORBIDE MONOnitrate [Imdur ER] 30 mg PO QDAY #30 tablet 07/01/19 07/14/19 07/13/19 Rx Losartan [Cozaar] 50 mg PO QDAY #30 tablet 07/01/19 07/14/19 07/13/19 Rx Metoprolol Xl [Metoprolol 25 mg PO QDAY #30 tablet 07/01/19 07/14/19 07/13/19 Rx SUCCINATE ER TAB] Active Medications: Generic Name Dose Route Start Last Admin Trade Name Freq PRN Reason Stop Dose Admin Acetaminophen 650 mg 07/14/19 02:29 07/16/19 23:02 Tylenol PO 650 mg Q4H PRN Administration Pain MILD(1-3)/Fever >100.5/[place] Acetaminophen/Hydrocodone Bitart 1 each 07/17/19 07:39 07/18/19 19:57 [place] 10/325 PO 1 each Q4H PRN Administration Pain , Severe (7-10) Dextrose 0 ml 07/14/19 02:52 D50w (25gm) Syringe IV Q30MIN PRN Hypoglycemia Diphenhydramine HCl 25 mg 07/16/19 03:36 Benadryl IV Q6H PRN Itching Levofloxacin/Dextrose 750 mg in 150 mls @ 100 mls/hr 07/18/19 10:00 07/18/19 09:06 Levaquin 750mg/150ml IV 100 mls/hr Q24HR [facility] Administration Protocol Metronidazole 500 mg in 100 mls @ 100 mls/hr 07/18/19 22:00 07/19/19 05:11 Flagyl 500 Mg/100 Ml IV 100 mls/hr Q8HR [facility] Administration Protocol Insulin Human Lispro 0 unit 07/14/19 07:30 07/19/19 07:45 Humalog SUB-Q Not Given ACHS [facility] Protocol Morphine Sulfate 2 mg 07/14/19 02:29 07/19/19 07:52 Morphine IV 2 mg Q4H PRN Administration Pain, Moderate (4-6) Ondansetron HCl 4 mg 07/14/19 02:46 Zofran IV Q4H PRN Nausea And Vomiting Polyethylene Glycol 17 gm 07/17/19 07:39 07/17/19 09:45 Miralax 3350 PO 17 gm QDAY PRN Administration Constipation Sodium Chloride 10 ml 07/14/19 10:00 07/18/19 21:30 Sodium Chloride Flush Syringe 10 Ml IV 10 ml BID [facility]L Administration Sodium Chloride 10 ml 07/14/19 02:29 07/16/19 08:19 Sodium Chloride Flush Syringe 10 Ml IV 10 ml PRN PRN Administration LINE FLUSH Tbo-Filgrastim 300 mcg 07/16/19 10:00 07/18/19 09:07 Granix SUB-Q 300 mcg QDAY [facility] Administration Venlafaxine HCl 75 mg 07/18/19 10:00 07/18/19 21:28 Effexor PO 75 mg BID [facility]L Administration
[2019-07-19] MEDS: VENLAFAXINE 75 MG TAB PO SCH ×2 (09:43→21:23)
[2019-07-19] MEDS: POLYETHYLENE GLYCOL 3350 17 GM POWDER PO PRN (09:45)
[2019-07-19] MEDS: TBO-FILGRASTIM 300 MCG/0.5 ML SUB-Q SCH (11:00)
--- NOTE | 2019-07-19 12:54 | Progress Note ---
Assessment and Plan Cultures: None this admission A/P: 78-year-old female with MDS, hypertension, diabetes, immunocompromised, on chemotherapy follows with Dr. Gonsales admitted with: 1) Acute diverticulitis of the distal sigmoid colon: CT reported no perforation or abscess. Treat with empiric abx. 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 On G-CSF 3) Multiple splenic lesions: ?related to her hematologic disease. 4) R index finger abscess: much improved, no abx needed. Continue wound care. Recs: - ok to continue levofloxacin 750mg q24. I have re-added metronidazole 500mg q8h which fell off. Plan on 14 day course of antibiotic therapy - Both can be converted to PO at the same dosing if patient improves enough to be discharged. - guarded prognosis. - afebrile Capo Jackson MD [facility] ([facility]) M: [phone] O: [phone] F: [phone] Subjective Date of service: 07/19/19 Principal diagnosis: MDS Interval history: No acute change. Objective - Exam Narrative Exam: Constitutional: Alert, cooperative. No acute distress Head, Ears, Nose: Normocephalic, atraumatic. External ears, nose normal Eyes: Conjunctivae/corneas clear. No icterus. No ptosis. Neck: Supple, no meningeal signs Oral: no thrush Cardiovascular: S1, S2 normal. Respiratory: Good air entry, clear to auscultation bilaterally GI: Soft, LLQ tenderness; bowel sounds normal. No peritoneal signs Musculoskeletal: No pedal edema, no cyanosis. Left arm PICC +. Right index finger with small wound with dressing, no drainage, non tender Skin: No rash or abscess Hem/Lymphatic: No palpable cervical or supraclavicular nodes. No lymphangitis Psych: Mood ok. Affect normal Neurological: Awake, alert, oriented. No gross abnormality - Constitutional Vitals: Vital Signs Temp Pulse Resp BP Pulse Ox 97.7 F 86 17 142/42 99 07/19/19 12:00 07/19/19 12:00 07/19/19 12:00 07/19/19 11:00 07/19/19 12:00 Temperature -Last 24 Hours Temperature 97.7 F Temperature 98.4 F Temperature 98.4 F Temperature 98.4 F Temperature 98.3 F Temperature 98.7 F Temperature 98.8 F Temperature 98.9 F - Labs CBC & Chem 7: 07/18/19 04:11 07/18/19 04:11 Labs: Abnormal lab results 07/19/19 07/19/19 Range/Units 07:53 11:43 POC Glucose 111 H 171 H (70-105)
[2019-07-19 13:49] LABS: Hematocrit 20.6 % (30.3-42.9); Hemoglobin 7.1 gm/dl (10.1-14.3); Mean Corpuscular HGB Conc 35 % (30-34); Mean Corpuscular Volume 89 fl (79-97); Red Blood Count 2.31 M/mm3 (3.65-5.03); Red Cell Distribution Width 17.1 % (13.2-15.2)
[2019-07-19 14:05] LABS: Platelet Count 10 K/mm3 (140-440)
--- NOTE | 2019-07-19 17:21 | Progress Note ---
Assessment and Plan Assessment and plan: Patient is a 78-year-old AA woman with a history of MDS with multiple blood transfusions, Depression, hypertension, immunocompromised state on chemotherapy who follows with Dr. Gonsales who presented with Left sided abdominal pains * CT abd/pelvis with contrast IMPRESSION: 1. Acute diverticulitis of the distal sigmoid colon. 2. Hepatosplenomegaly, as above. There are multiple lesions identified throughout the spleen that are ultimately nonspecific given the enhancement pattern * CT head without contrast IMPRESSION: 1. No acute intracranial abnormality. 2. Bilateral ethmoid and maxillary sinusitis. * FOBT negative Acute diverticulitis of the distal sigmoid colon: treat with IVF but change Cefepime to Levaquin because of the Cytopenias not improving with blood transfusion, flagyl fell off of the MAR, ID was following. MDS: Dr. 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 On G-CSF Multiple splenic lesions==>HSM related to her hematologic disease, Dr. Gonsales is following Right index finger abscess: much improved, no abx needed. Continue wound care. Hypertension: low salt diet, hold antihypertensives due to anemia Type 2 DM: blood glucose has been stable, off metformin and ssi. Depression: continue Effexor Constipation: Miralax DVT prophylaxis: scd only due to anemia full code Check on patients clinically status in AM. History Interval history: Patient seen and examined, Hospitalist Physical - Physical exam Narrative exam: Gen: WDWN, NAD, Awake, Alert, Orientated HEENT: NCAT, EOMI, PERRL, OP Clear Neck: supple, no adenopathy, no thyromegaly, no JVD CVS/Heart: RRR, normal S1S2, pulses present bilaterally Chest/Lungs: CTA B, Symmetrical chest expansion, good air entry bilaterally GI/Abdomen: soft, No tenderness, good bowel sounds, no guarding or rebound /Bladder: no suprapubic tenderness, no CVA or paraspinal tenderness Extermity/Skin: no c/c/e, no obvious rash MSK: FROM x 4 Neuro: CN 2-12 grossly intact, no new focal deficits Psych: calm - Constitutional Vitals: Temp Pulse Resp BP Pulse Ox 99.0 F 77 20 130/65 95 07/19/19 15:39 07/19/19 15:39 07/19/19 15:39 07/19/19 15:39 07/19/19 15:39 Results - Labs CBC & Chem 7: 07/20/19 04:44 07/20/19 04:44 Labs: Laboratory Last Values WBC 0.1 K/mm3 (4.5-11.0) L* 07/19/19 12:57 RBC 2.31 M/mm3 (3.65-5.03) L 07/19/19 12:57 Hgb 7.1 gm/dl (10.1-14.3) L 07/19/19 12:57 Hct 20.6 % (30.3-42.9) L 07/19/19 12:57 MCV 89 fl (79-97) 07/19/19 12:57 MCH 31 pg (28-32) 07/19/19 12:57 MCHC 35 % (30-34) H 07/19/19 12:57 RDW 17.1 % (13.2-15.2) H 07/19/19 12:57 Plt Count 10 K/mm3 (140-440) L* D 07/19/19 12:57 Lymph % (Auto) Agriculture Laborer 07/14/19 04:19 Add Manual Diff Complete 07/14/19 04:19 Total Counted 67 07/14/19 04:19 Seg Neutrophils % Agriculture Laborer 07/14/19 04:19 Seg Neuts % (Manual) 1.5 % (40.0-70.0) L 07/14/19 04:19 Band Neutrophils % 0 % 07/14/19 04:19 Lymphocytes % (Manual) 98.5 % (13.4-35.0) H 07/14/19 04:19 Reactive Lymphs % (Man) 0 % 07/14/19 04:19 Monocytes % (Manual) 0 % (0.0-7.3) 07/14/19 04:19 Eosinophils % (Manual) 0 % (0.0-4.3) 07/14/19 04:19 Basophils % (Manual) 0 % (0.0-1.8) 07/14/19 04:19 Metamyelocytes % 0 % 07/14/19 04:19 Myelocytes % 0 % 07/14/19 04:19 Promyelocytes % 0 % 07/14/19 04:19 Blast Cells % 0 % 07/14/19 04:19 Nucleated RBC % Not Reportable 07/14/19 04:19 Seg Neutrophils # Man 0.0 K/mm3 (1.8-7.7) L 07/14/19 04:19 Band Neutrophils # 0.0 K/mm3 07/14/19 04:19 Lymphocytes # (Manual) 0.2 K/mm3 (1.2-5.4) L 07/14/19 04:19 Abs React Lymphs (Man) 0.0 K/mm3 07/14/19 04:19 Monocytes # (Manual) 0.0 K/mm3 (0.0-0.8) 07/14/19 04:19 Eosinophils # (Manual) 0.0 K/mm3 (0.0-0.4) 07/14/19 04:19 Basophils # (Manual) 0.0 K/mm3 (0.0-0.1) 07/14/19 04:19 Metamyelocytes # 0.0 K/mm3 07/14/19 04:19 Myelocytes # 0.0 K/mm3 07/14/19 04:19 Promyelocytes # 0.0 K/mm3 07/14/19 04:19 Blast Cells # 0.0 K/mm3 07/14/19 04:19 WBC Morphology Not Reportable 07/14/19 04:19 Hypersegmented Neuts Not Reportable 07/14/19 04:19 Hyposegmented Neuts Not Reportable 07/14/19 04:19 Hypogranular Neuts Not Reportable 07/14/19 04:19 Smudge Cells Not Reportable 07/14/19 04:19 Toxic Granulation Not Reportable 07/14/19 04:19 Toxic Vacuolation Not Reportable 07/14/19 04:19 Dohle Bodies Not Reportable 07/14/19 04:19 Pelger-Huet Anomaly Not Reportable 07/14/19 04:19 Pao Rods Not Reportable 07/14/19 04:19 Platelet Estimate Consistent w auto 07/14/19 04:19 Clumped Platelets Not Reportable 07/14/19 04:19 Plt Clumps, EDTA Not Reportable 07/14/19 04:19 Large Platelets Not Reportable 07/14/19 04:19 Giant Platelets Not Reportable 07/14/19 04:19 Platelet Satelliting Not Reportable 07/14/19 04:19 Plt Morphology Comment Not Reportable 07/14/19 04:19 RBC Morphology Not Reportable 07/14/19 04:19 Dimorphic RBCs Not Reportable 07/14/19 04:19 Polychromasia Not Reportable 07/14/19 04:19 Hypochromasia Not Reportable 07/14/19 04:19 Poikilocytosis Not Reportable 07/14/19 04:19 Anisocytosis 1+ 07/14/19 04:19 Microcytosis Not Reportable 07/14/19 04:19 Macrocytosis 1+ 07/14/19 04:19 Spherocytes Not Reportable 07/14/19 04:19 Pappenheimer Bodies Not Reportable 07/14/19 04:19 Sickle Cells Not Reportable 07/14/19 04:19 Target Cells Not Reportable 07/14/19 04:19 Tear Drop Cells Few 07/14/19 04:19 Ovalocytes Few 07/14/19 04:19 Helmet Cells Not Reportable 07/14/19 04:19 [place] Bodies Not Reportable 07/14/19 04:19 Tiffin Rings Not Reportable 07/14/19 04:19 Manuel Cells Not Reportable 07/14/19 04:19 Bite Cells Not Reportable 07/14/19 04:19 Crenated Cell Not Reportable 07/14/19 04:19 Elliptocytes Not Reportable 07/14/19 04:19 Acanthocytes (Spur) Not Reportable 07/14/19 04:19 Rouleaux Not Reportable 07/14/19 04:19 Hemoglobin C Crystals Not Reportable 07/14/19 04:19 Schistocytes Few 07/14/19 04:19 Malaria parasites Not Reportable 07/14/19 04:19 Chung Bodies Not Reportable 07/14/19 04:19 Hem Pathologist Commnt No 07/14/19 04:19 PT 16.5 Sec. (12.2-14.9) H 07/13/19 Unknown INR 1.35 (0.87-1.13) H 07/13/19 Unknown APTT 38.0 Sec. (24.2-36.6) H 07/13/19 Unknown Sodium 137 mmol/L (137-145) 07/18/19 04:11 Potassium 3.9 mmol/L (3.6-5.0) 07/18/19 04:11 Chloride 107.9 mmol/L (98-107) H 07/18/19 04:11 Carbon Dioxide 20 mmol/L (22-30) L 07/18/19 04:11 Anion Gap 13 mmol/L 07/18/19 04:11 BUN 16 mg/dL (7-17) 07/18/19 04:11 Creatinine 0.6 mg/dL (0.7-1.2) L 07/18/19 04:11 Estimated GFR > 60 ml/min 07/18/19 04:11 BUN/Creatinine Ratio 27 % 07/18/19 04:11 Glucose 104 mg/dL (65-100) H 07/18/19 04:11 POC Glucose 55 (70-105) L 07/19/19 16:56 Calcium 8.1 mg/dL (8.4-10.2) L 07/18/19 04:11 Magnesium 2.20 mg/dL (1.7-2.3) 07/13/19 Unknown Total Bilirubin 0.80 mg/dL (0.1-1.2) 07/13/19 Unknown AST < 5 units/L (5-40) L 07/13/19 Unknown ALT < 5 units/L (7-56) L 07/13/19 Unknown Alkaline Phosphatase 67 units/L (35-129) 07/13/19 Unknown Total Creatine Kinase 8 units/L (30-135) L 07/13/19 Unknown Troponin T < 0.010 ng/mL (0.00-0.029) 07/18/19 18:00 Total Protein 6.7 g/dL (6.3-8.2) 07/13/19 Unknown Albumin 4.0 g/dL (3.9-5) 07/13/19 Unknown Albumin/Globulin Ratio 1.5 % 07/13/19 Unknown Lipase 10 units/L (13-60) L 07/13/19 Unknown Urine Color Yellow (Yellow) 07/13/19 Unknown Urine Turbidity Clear (Clear) 07/13/19 Unknown Urine pH 5.0 (5.0-7.0) 07/13/19 Unknown Ur Specific [place] 1.018 (1.003-1.030) 07/13/19 Unknown Urine Protein <15 mg/dl mg/dL (Negative) 07/13/19 Unknown Urine Glucose (UA) Neg mg/dL (Negative) 07/13/19 Unknown Urine Ketones Neg mg/dL (Negative) 07/13/19 Unknown Urine Blood Neg (Negative) 07/13/19 Unknown Urine Nitrite Neg (Negative) 07/13/19 Unknown Urine Bilirubin Neg (Negative) 07/13/19 Unknown Urine Urobilinogen < 2.0 mg/dL (<2.0) 07/13/19 Unknown Ur Leukocyte Esterase Neg (Negative) 07/13/19 Unknown Urine WBC (Auto) < 1.0 /HPF (0.0-6.0) 07/13/19 Unknown Urine RBC (Auto) 4.0 /HPF (0.0-6.0) 07/13/19 Unknown U Epithel Cells (Auto) 1.0 /HPF (0-13.0) 07/13/19 Unknown Urine Bacteria (Auto) 1+ /HPF (Negative) 07/13/19 Unknown Urine Mucus Few /HPF 07/13/19 Unknown Blood Type O POSITIVE 07/17/19 06:36 Antibody Screen Negative 07/13/19 22:45 Crossmatch See Detail 07/13/19 22:45 Active Medications - Current Medications Current Medications: Generic Name Dose Route Start Last Admin Trade Name Freq PRN Reason Stop Dose Admin Acetaminophen 650 mg 07/14/19 02:29 07/16/19 23:02 Tylenol PO 650 mg Q4H PRN Administration Pain MILD(1-3)/Fever >100.5/COLUNGA Acetaminophen/Hydrocodone Bitart 1 each 07/17/19 07:39 07/18/19 19:57 [place] 10/325 PO 1 each Q4H PRN Administration Pain , Severe (7-10) Dextrose 0 ml 07/14/19 02:52 D50w (25gm) Syringe IV Q30MIN PRN Hypoglycemia Diphenhydramine HCl 25 mg 07/16/19 03:36 Benadryl IV Q6H PRN Itching Levofloxacin/Dextrose 750 mg in 150 mls @ 100 mls/hr 07/18/19 10:00 07/19/19 09:44 Levaquin 750mg/150ml IV 100 mls/hr Q24HR XOCHITL Administration Protocol Metronidazole 500 mg in 100 mls @ 100 mls/hr 07/18/19 22:00 07/19/19 14:02 Flagyl 500 Mg/100 Ml IV 100 mls/hr Q8HR XOCHITL Administration Protocol Insulin Human Lispro 0 unit 07/14/19 07:30 07/19/19 12:05 Humalog SUB-Q 2 unit ACHS XOCHITL Administration Protocol Morphine Sulfate 2 mg 07/14/19 02:29 07/19/19 07:52 Morphine IV 2 mg Q4H PRN Administration Pain, Moderate (4-6) Ondansetron HCl 4 mg 07/14/19 02:46 Zofran IV Q4H PRN Nausea And Vomiting Polyethylene Glycol 17 gm 07/17/19 07:39 07/19/19 09:45 Miralax 3350 PO 17 gm QDAY PRN Administration Constipation Sodium Chloride 10 ml 07/14/19 10:00 07/19/19 09:44 Sodium Chloride Flush Syringe 10 Ml IV 10 ml BID XOCHITL Administration Sodium Chloride 10 ml 07/14/19 02:29 07/16/19 08:19 Sodium Chloride Flush Syringe 10 Ml IV 10 ml PRN PRN Administration LINE FLUSH Tbo-Filgrastim 300 mcg 07/19/19 11:00 07/19/19 11:00 Granix SUB-Q 300 mcg DAILY XOCHITL Administration Venlafaxine HCl 75 mg 07/18/19 10:00 07/19/19 09:43 Effexor PO 75 mg BID XOCHITL Administration
[2019-07-19] MEDS: TBO-FILGRASTIM 480 MCG/0.8 ML SUB-Q SCH (21:13)
[2019-07-19] MEDS: HYDROcodone/ACETAMINOPHEN 10-325MG TAB PO PRN (22:10)
[2019-07-20] MEDS: metroNIDAZOLE/NS 500 MG/100 ML 500 MG/100 ML BAG IV SCH ×2 (05:02→13:56)
[2019-07-20 05:28] LABS: Mean Corpuscular HGB Conc 33 % (30-34); Mean Corpuscular Volume 89 fl (79-97); Red Blood Count 2.23 M/mm3 (3.65-5.03); Red Cell Distribution Width 17.1 % (13.2-15.2)
[2019-07-20 05:42] LABS: Hemoglobin 6.7 gm/dl (10.1-14.3)
[2019-07-20 05:43] LABS: Hematocrit 19.9 % (30.3-42.9); Platelet Count 11 K/mm3 (140-440)
[2019-07-20 05:55] LABS: BUN/Creatinine Ratio 25; Blood Urea Nitrogen 15 mg/dL (7-17); Hemolysis Index 6
[2019-07-20] MEDS: HYDROcodone/ACETAMINOPHEN 10-325MG TAB PO PRN (06:27)
[2019-07-20] MEDS: INSULIN LISPRO 100 UNIT/ML SUB-Q SCH ×3 (07:53→16:46)
--- NOTE | 2019-07-20 07:57 | Hem/Onc Progress Note ---
Assessment and Plan 1. MDS - Anemia, leukopenia, thrombocytopenia. 2. Bone marrow biopsy in March and had shown 90% to 100% cellularity with MDS. 3. Radiology shows hepatosplenomegaly with spleen lesions. 4. Transfusion support. 5. The patient on G-CSF support. 6. PICC line. 7. History of methicillin-resistant Staphylococcus aureus in the finger. 8. History of hypertension. 9. History of diabetes. 10. In the past, ejection fraction was 40-45%. pt has got 3 cycles of chemo dacogen IV usually we wait for 4 cycles to decide if the treatment is working or not on transfusion support PRN - gCSF IR did not do BMBX spleen palpable - pt had CT abdo done OP follow up - if stable - for BMBX 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 Subjective Date of service: 07/20/19 Principal diagnosis: MDS Interval history: BMBX not done - due to low counts Objective - Exam Narrative Exam: Pain - none General appearance - on o2 Performance status limited self care Eyes - no icterus, ENT - no bleeding LNs cervical not palpable Neck - no LN Respiratory Normal Breath sounds - CTA anteriorly CVS S1 S2 + Extremities no tenderness General GI Soft - spleen+ Rectal deferred female - deferred Skin warm Musculoskeletal moves Neurologically awake - Constitutional Vitals: Last Vital Signs Temp 98.2 F 07/20/19 07:25 Pulse 90 07/20/19 07:25 Resp 20 07/20/19 07:25 BP 153/66 07/20/19 07:25 Pulse Ox 97 07/20/19 07:25 - Labs Lab Results: Laboratory Results - last 24 hr 07/19/19 07/19/19 07/19/19 07:53 11:43 12:57 WBC 0.1 L* RBC 2.31 L Hgb 7.1 L Hct 20.6 L MCV 89 MCH 31 MCHC 35 H RDW 17.1 H Plt Count 10 L* D Sodium Potassium Chloride Carbon Dioxide Anion Gap BUN Creatinine Estimated GFR BUN/Creatinine Ratio Glucose POC Glucose 111 H 171 H Calcium 07/19/19 07/19/19 07/19/19 16:56 18:00 22:37 WBC RBC Hgb Hct MCV MCH MCHC RDW Plt Count Sodium Potassium Chloride Carbon Dioxide Anion Gap BUN Creatinine Estimated GFR BUN/Creatinine Ratio Glucose POC Glucose 55 L 80 81 Calcium 07/20/19 07/20/19 07/20/19 04:44 04:44 07:41 WBC 0.1 L* RBC 2.23 L Hgb 6.7 L Hct 19.9 L* MCV 89 MCH 30 MCHC 33 RDW 17.1 H Plt Count 11 L* Sodium 136 L Potassium 3.9 Chloride 105.8 Carbon Dioxide 19 L Anion Gap 15 BUN 15 Creatinine 0.6 L Estimated GFR > 60 BUN/Creatinine Ratio 25 Glucose 98 POC Glucose 98 Calcium 8.0 L Medications & Allergies - Medications Allergies/Adverse Reactions: Allergies No Known Allergies Allergy (Verified 06/06/19 08:16) Home Medications: Home Medications Medication Instructions Recorded Confirmed Last Taken Type Acetaminophen [Acetaminophen TAB] 500 mg PO Q6HR 05/26/19 07/14/19 07/13/19 History Venlafaxine [Effexor] 75 mg PO BID 05/26/19 07/14/19 07/13/19 History Amlodipine Besylate [Norvasc] 5 mg PO DAILY #30 tablet 05/28/19 07/14/19 07/13/19 Rx HYDROcodone/APAP 5-325 [[place] 1 each PO Q6HR PRN #10 tablet 05/28/19 07/14/19 07/13/19 Rx 5-325 mg TAB] Loratadine [Claritin] 10 mg PO DAILY #30 tablet 05/28/19 07/14/19 07/13/19 Rx Metformin HCl [metFORMIN] 1,000 mg PO BID #60 tablet 05/28/19 07/14/19 07/13/19 Rx Polyethylene Glycol 3350 [Miralax 17 gm PO QDAY #30 powd.pack 05/28/19 07/14/19 07/13/19 Rx 3350] ISOSORBIDE MONOnitrate [Imdur ER] 30 mg PO QDAY #30 tablet 07/01/19 07/14/19 07/13/19 Rx Losartan [Cozaar] 50 mg PO QDAY #30 tablet 07/01/19 07/14/19 07/13/19 Rx Metoprolol Xl [Metoprolol 25 mg PO QDAY #30 tablet 07/01/19 07/14/19 07/13/19 Rx SUCCINATE ER TAB] Active Medications: Generic Name Dose Route Start Last Admin Trade Name Freq PRN Reason Stop Dose Admin Acetaminophen 650 mg 10/24/19 02:29 07/16/19 23:02 Tylenol PO 650 mg Q4H PRN Administration Pain MILD(1-3)/Fever >100.5/COLUNGA Acetaminophen/Hydrocodone Bitart 1 each 07/17/19 07:39 07/20/19 06:27 [place] 10/325 PO 1 each Q4H PRN Administration Pain , Severe (7-10) Dextrose 0 ml 07/14/19 02:52 D50w (25gm) Syringe IV Q30MIN PRN Hypoglycemia Diphenhydramine HCl 25 mg 07/16/19 03:36 Benadryl IV Q6H PRN Itching Levofloxacin/Dextrose 750 mg in 150 mls @ 100 mls/hr 07/18/19 10:00 07/19/19 09:44 Levaquin 750mg/150ml IV 100 mls/hr Q24HR XOCHITL Administration Protocol Metronidazole 500 mg in 100 mls @ 100 mls/hr 07/18/19 22:00 07/20/19 05:02 Flagyl 500 Mg/100 Ml IV 100 mls/hr Q8HR XOCHITL Administration Protocol Insulin Human Lispro 0 unit 07/14/19 07:30 07/20/19 07:53 Humalog SUB-Q Not Given ACHS XOCHITL Protocol Morphine Sulfate 2 mg 07/14/19 02:29 07/19/19 07:52 Morphine IV 2 mg Q4H PRN Administration Pain, Moderate (4-6) Ondansetron HCl 4 mg 07/14/19 02:46 Zofran IV Q4H PRN Nausea And Vomiting Polyethylene Glycol 17 gm 07/17/19 07:39 07/19/19 09:45 Miralax 3350 PO 17 gm QDAY PRN Administration Constipation Sodium Chloride 10 ml 07/14/19 10:00 07/19/19 21:23 Sodium Chloride Flush Syringe 10 Ml IV 10 ml BID XOCHITL Administration Sodium Chloride 10 ml 07/14/19 02:29 07/16/19 08:19 Sodium Chloride Flush Syringe 10 Ml IV 10 ml PRN PRN Administration LINE FLUSH Tbo-Filgrastim 300 mcg 07/19/19 11:00 07/19/19 11:00 Granix SUB-Q 300 mcg DAILY XOCHITL Administration Venlafaxine HCl 75 mg 07/18/19 10:00 07/19/19 21:23 Effexor PO 75 mg BID XOCHITL Administration
--- NOTE | 2019-07-20 10:12 | Event Note ---
Date: 07/20/19 Request for bone marrow biopsy. I ordered bone marrow biopsy to assist with care for the patient, but this procedure is performed by diagnostic radiology. Please contact diagnostic radiology to coordinate care.
[2019-07-20] MEDS: VENLAFAXINE 75 MG TAB PO SCH (10:20)
[2019-07-20] MEDS: TBO-FILGRASTIM 300 MCG/0.5 ML SUB-Q SCH (10:20)
--- NOTE | 2019-07-20 11:55 | Discharge Summary ---
Providers - Providers Date of Admission: 07/14/19 03:23 Attending physician: SANA MAHMOOD MD 07/14/19 02:29 Consult to Physician [CONS] Routine Comment: Consulting Provider: EMMY PAZ Physician Instructions: Reason For Exam: pancytopenia/diverticulitis 07/14/19 02:45 Consult to Physician [CONS] Routine Comment: Consulting Provider: RICARDO GONSALES Physician Instructions: Reason For Exam: mds/pancytopenia 07/18/19 07:40 Consult to Interventional Radiology [CONS] Routine Consulting Provider: ARTUR BOWEN Reason For Exam: CT guided BMBx - platelets 5- h/o MDS - on chemo Primary care physician: GRAVITY METER OBSERVER Hospitalization Reason for admission: DIVERITCULITIS Condition: Stable Hospital course: Patient is a 78-year-old AA woman with a history of MDS with multiple blood transfusions, Depression, hypertension, immunocompromised state on chemotherapy who follows with Dr. Gonsales who presented with Left sided abdominal pains * CT abd/pelvis with contrast IMPRESSION: 1. Acute diverticulitis of the distal sigmoid colon. 2. Hepatosplenomegaly, as above. There are multiple lesions identified throughout the spleen that are ultimately nonspecific given the enhancement pattern * CT head without contrast IMPRESSION: 1. No acute intracranial abnormality. 2. Bilateral ethmoid and maxillary sinusitis. * FOBT negative * Unable to get BMTX inhouse due to low plt per Radiology, Discussed with Sales And Marketing Specialist/Onocologist-he will plan for outpatient. * Patient ambulating without exertional dyspnea and states she feels at her baseline, no further abdominal pain. * Abx adjusted and patient advised on safety precautions on discharge including need for protective mask and all follow ups. Acute diverticulitis of the distal sigmoid colon: treated with IVF but change Cefepime to Levaquin because of the Cytopenias not improving with blood transfusion, flagyl fell off of the MAR, ID was following. Patient will follow with ID outpatient and will complete 14 days of antibiotics SIRS without organ dysfunction: Likely secondary to diverticulitis MDS: Dr. Gonsales is following Severe thrombocytopenia/panctyopenia, s/p 5 units of pheresis platelets transfused so far: treat with Granix and needing more plt transfusion Acute on chronic anemia s/p 5 units of PRBC transfused so far: monitor CBC closely Immunocompromised host secondary to MDS with severe neutropenia and p ancytopenia: Hematology following. On G-CSF Multiple splenic lesions==>HSM related to her hematologic disease, Dr. Gonsales is following, Noted on CT also. Dr Gonsales will follow outaptient, will likely need spenectomy when other indices improve Right index finger abscess: much improved, no abx needed. Continue wound care. Hypertension: low salt diet, hold antihypertensives due to anemia Type 2 DM: blood glucose has been stable, off metformin and ssi. Depression: continue Effexor Constipation: Miralax Disposition: - TO HOME OR SELFCARE Time spent for discharge: 35 MINS Core Measure Documentation - Palliative Care Palliative Care/ Comfort Measures: Not Applicable - Core Measures Any of the following diagnoses?: none Exam - Physical Exam Narrative exam: Gen: WDWN, NAD, Awake, Alert, Orientated HEENT: NCAT, EOMI, PERRL, OP Clear Neck: supple, no adenopathy, no thyromegaly, no JVD CVS/Heart: RRR, normal S1S2, pulses present bilaterally Chest/Lungs: CTA B, Symmetrical chest expansion, good air entry bilaterally GI/Abdomen: soft, No tenderness, good bowel sounds, no guarding or rebound /Bladder: no suprapubic tenderness, no CVA or paraspinal tenderness Extermity/Skin: no c/c/e, no obvious rash MSK: FROM x 4 Neuro: CN 2-12 grossly intact, no new focal deficits Psych: calm - Constitutional Vitals: Temp Pulse Resp BP Pulse Ox 98.2 F 90 20 153/66 97 07/20/19 07:25 07/20/19 07:25 07/20/19 07:25 07/20/19 07:25 07/20/19 07:25 Plan Activity: advance as tolerated, fall precautions Diet: low fat Special Instructions: record daily BP diary Follow up with: PRIMARY MD GIANCARLO [Primary Care Provider] - 3-5 Days ARTUR HAWK MD [Staff Physician] - 7 Days RICARDO GONSALES MD [Staff Physician] - 7 Days ARISTIDES MORSE MD [Staff Physician] - 7 Days Prescriptions: metroNIDAZOLE [Flagyl] 500 mg PO Q8HR #24 tablet levoFLOXacin [Levaquin] 750 mg PO QDAY #8 tablet
--- NOTE | 2019-07-20 12:16 | Progress Note ---
Assessment and Plan Cultures: None this admission A/P: 78-year-old female with MDS, hypertension, diabetes, immunocompromised, on chemotherapy follows with Dr. Gonsales admitted with: 1) Acute diverticulitis of the distal sigmoid colon: CT reported no perforation or abscess. Treat with empiric abx. 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 On G-CSF 3) Multiple splenic lesions: ?related to her hematologic disease. 4) R index finger abscess: much improved, no abx needed. Continue wound care. Recs: - ok to continue levofloxacin 750mg q24. Continue metronidazole 500mg q8h. Plan on 14 day course of antibiotic therapy - Both can be converted to PO at the same dosing at discharge. - guarded prognosis. - afebrile Capo Jackson MD [facility] ([facility]) M: [phone] O: [phone] F: [phone] Subjective Date of service: 07/20/19 Principal diagnosis: MDS Interval history: Feels improved today Objective - Exam Narrative Exam: Constitutional: Alert, cooperative. No acute distress Head, Ears, Nose: Normocephalic, atraumatic. External ears, nose normal Eyes: Conjunctivae/corneas clear. No icterus. No ptosis. Neck: Supple, no meningeal signs Oral: no thrush Cardiovascular: S1, S2 normal. Respiratory: Good air entry, clear to auscultation bilaterally GI: Soft, LLQ tenderness; bowel sounds normal. No peritoneal signs Musculoskeletal: No pedal edema, no cyanosis. Left arm PICC +. Right index finger with small wound with dressing, no drainage, non tender Skin: No rash or abscess Hem/Lymphatic: No palpable cervical or supraclavicular nodes. No lymphangitis Psych: Mood ok. Affect normal Neurological: Awake, alert, oriented. No gross abnormality - Constitutional Vitals: Vital Signs Temp Pulse Resp BP Pulse Ox 98.2 F 90 20 153/66 97 07/20/19 07:25 07/20/19 07:25 07/20/19 07:25 07/20/19 07:25 07/20/19 07:25 Temperature -Last 24 Hours Temperature 98.2 F Temperature 98.3 F Temperature 98.7 F Temperature 99.0 F - Labs CBC & Chem 7: 07/20/19 04:44 07/20/19 04:44 Labs: Abnormal lab results 07/19/19 07/19/19 07/20/19 Range/Units 12:57 16:56 04:44 WBC 0.1 L* 0.1 L* (4.5-11.0) K/mm3 RBC 2.31 L 2.23 L (3.65-5.03) M/mm3 Hgb 7.1 L 6.7 L (10.1-14.3) gm/dl Hct 20.6 L 19.9 L* (30.3-42.9) % MCHC 35 H (30-34) % RDW 17.1 H 17.1 H (13.2-15.2) % Plt Count 10 L* D 11 L* (140-440) K/mm3 Sodium (137-145) mmol/L Carbon Dioxide (22-30) mmol/L Creatinine (0.7-1.2) mg/dL POC Glucose 55 L (70-105) Calcium (8.4-10.2) mg/dL 07/20/19 07/20/19 Range/Units 04:44 11:24 WBC (4.5-11.0) K/mm3 RBC (3.65-5.03) M/mm3 Hgb (10.1-14.3) gm/dl Hct (30.3-42.9) % MCHC (30-34) % RDW (13.2-15.2) % Plt Count (140-440) K/mm3 Sodium 136 L (137-145) mmol/L Carbon Dioxide 19 L (22-30) mmol/L Creatinine 0.6 L (0.7-1.2) mg/dL POC Glucose 108 H (70-105) Calcium 8.0 L (8.4-10.2) mg/dL
[2019-07-20 14:24] VITALS: BP 126/42
--- NOTE | 2019-07-20 14:28 | Cat Scan Report ---
CT abdomen pelvis w con INDICATION: splenomegaly, PANCYTOPENIA . TECHNIQUE: All CT scans at this location are performed using the following dose modulation technique: Automated exposure control. Helical slices were obtained through the abdomen and pelvis following the administr ation of 100 cc of Omnipaque 300 COMPARISON: CT scan dated 07/14/2019 FINDINGS: Abdomen: There are small bilateral pleural effusions the heart is enlarged. There is a small pericard ial effusion. There is patchy parenchymal opacity in the right lung base mildly increased from the pr ior study. The liver is mildly enlarged measuring 17 cm in length. There is marked splenomegaly the spleen measu res 18 cm in length. There are multiple hypodense lesions in the spleen appear unchanged from recent study. Adrenal glands and kidneys are unchanged from the recent exam. There is mild wall thickening in the distal stomach and proximal duodenum with some edema small amoun t of fluid adjacent to the proximal duodenum and pancreatic head. There is fluid noted in the colon. Pelvis: There is a small amount of free fluid in the pelvis. There are no abnormal fluid collections. There is sigmoid diverticulosis. Atherosclerotic calcifications are noted in the aorta and arteries. Review of bone windows, degenerative changes are noted in the spine and hips. This appears unchanged. IMPRESSION: 1. There is mild fluid and inflammation adjacent to the proximal duodenum in the head of the pancreas . This could represent duodenitis. This could represent pancreatitis. Correlation with amylase and li pase is recommended. There is marked splenomegaly. Multiple hypodense lesions in the spleen. This is unchanged. There is m ild hepatomegaly which is unchanged. Sigmoid diverticulitis was noted on the prior study. Free fluid in the pelvis obscures this area the current exam is difficult to evaluate for change today study. No walled off fluid collections are see n. There is no free air. Signer Name: Edgardo Welch MD Signed: 07/20/2019 2:24 PM Workstation Name: [id number]
== END 2019-07-20 17:30 | disposition home or self-care (01) | DRG 392 ==
LOC: ED 19:29 → IMCU 07-14 03:23 → 2B-ACE 07-19 15:24
PROVIDERS: ADMIT Internal Medicine; ATTEND Internal Medicine
PROC: 30233R1 Transfusion of Nonautologous Platelets into Peripheral Vein, Percutaneous Approach (ICD-10-PCS; principal; 2019-07-14)
PROC: 30233N1 Transfusion of Nonautologous Red Blood Cells into Peripheral Vein, Percutaneous Approach (ICD-10-PCS; 2019-07-14)
DX: K57.32 Diverticulitis of large intestine without perforation or abscess without bleeding (principal); D61.818 Other pancytopenia; L02.511 Cutaneous abscess of right hand; I50.20 Unspecified systolic (congestive) heart failure; D46.9 Myelodysplastic syndrome, unspecified; D73.89 Other diseases of spleen; E11.9 Type 2 diabetes mellitus without complications; D69.6 Thrombocytopenia, unspecified; F32.9 Major depressive disorder, single episode, unspecified; Z86.14 Personal history of Methicillin resistant Staphylococcus aureus infection; I11.0 Hypertensive heart disease with heart failure; Z79.899 Other long term (current) drug therapy; I25.2 Old myocardial infarction; Z90.49 Acquired absence of other specified parts of digestive tract; Z85.830 Personal history of malignant neoplasm of bone; Z82.49 Family history of ischemic heart disease and other diseases of the circulatory system; Z83.3 Family history of diabetes mellitus
CPT/HCPCS: 36415; 36430; 70450; 74177; 80048; 80053; 81001; 82271; 82550; 82962; 83690; 83735; 84484; 85007; 85025; 85027; 85610; 85730; 86850; 86900; 86901; 86920; 87086; 93005; 93010; G0378; J0692; J1200; J1447; J1815; J1956; J2270; J2405; J7040; J7050; P9016; P9035; P9040; Q9967

== ENCOUNTER 2019-07-28 11:05 | Inpatient (IN) | payer MEDICARE ==
[2019-07-28] MEDS ORDERED: SODIUM CHLORIDE 0.9% 1000 ML 1,000 ML IV ONE (12:41)
--- NOTE | 2019-07-28 12:55 | Emergency Department Report ---
ED Abdominal Pain HPI - General Chief Complaint: Chest Pain Stated Complaint: CP N/V/D Time Seen by Provider: 07/28/19 11:51 Source: patient, family, EMS Mode of arrival: Stretcher Limitations: No Limitations - History of Present Illness Initial Comments: Patient is a 78-year-old female presents emergency room with complaints of left- sided abdominal pain that began 3 days ago. She has associated generalized weakness, decreased appetite, subjective fever, nausea, vomiting, diarrhea. The family denies any melena, hematochezia, hematemesis, dysuria. 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 The patient family states that she last had chemotherapy last week but did not get it this week due to her not feeling well. family denies any allergies to medications. Severity scale (0 -10): 6 - Related Data Home Medications Medication Instructions Recorded Confirmed Last Taken Acetaminophen [Acetaminophen TAB] 500 mg PO Q6HR 05/26/19 07/14/19 07/13/19 Venlafaxine [Effexor] 75 mg PO BID 05/26/19 07/14/19 07/13/19 Previous Rx's Medication Instructions Recorded Last Taken Type Amlodipine Besylate [Norvasc] 5 mg PO DAILY #30 tablet 05/28/19 07/13/19 Rx HYDROcodone/APAP 5-325 [[place] 1 each PO Q6HR PRN #10 tablet 05/28/19 07/13/19 Rx 5-325 mg TAB] Loratadine [Claritin] 10 mg PO DAILY #30 tablet 05/28/19 07/13/19 Rx Metformin HCl [metFORMIN] 1,000 mg PO BID #60 tablet 05/28/19 07/13/19 Rx Polyethylene Glycol 3350 [Miralax 17 gm PO QDAY #30 powd.pack 05/28/19 07/13/19 Rx 3350] ISOSORBIDE MONOnitrate [Imdur ER] 30 mg PO QDAY #30 tablet 07/01/19 07/13/19 Rx levoFLOXacin [Levaquin] 750 mg PO QDAY #8 tablet 07/20/19 Unknown Rx metroNIDAZOLE [Flagyl] 500 mg PO Q8HR #24 tablet 07/20/19 Unknown Rx Allergies Allergy/AdvReac Type Severity Reaction Status Date / Time No Known Allergies Allergy Verified 06/06/19 08:16 ED Review of Systems ROS: Stated complaint: CP N/V/D Other details as noted in HPI Comment: All other systems reviewed and negative ED Past Medical Hx - Past Medical History Hx Hypertension: Yes (date unknown) Hx Heart Attack/AMI: Yes (Pt states, "I think it was 2015".) Hx Congestive Heart Failure: Yes Hx Diabetes: Yes Additional medical history: Myelodysplastic syndrome - Surgical History Hx Cholecystectomy: Yes Additional Surgical History: Bone Cancer. PICC line in left upper arm - Social History Smoking Status: Current Every Day Smoker Substance Use Type: None - Medications Home Medications: Home Medications Medication Instructions Recorded Confirmed Last Taken Type Acetaminophen [Acetaminophen TAB] 500 mg PO Q6HR 05/26/19 07/14/19 07/13/19 History Venlafaxine [Effexor] 75 mg PO BID 05/26/19 07/14/19 07/13/19 History Amlodipine Besylate [Norvasc] 5 mg PO DAILY #30 tablet 05/28/19 07/14/19 07/13/19 Rx HYDROcodone/APAP 5-325 [[place] 1 each PO Q6HR PRN #10 tablet 05/28/19 07/14/19 07/13/19 Rx 5-325 mg TAB] Loratadine [Claritin] 10 mg PO DAILY #30 tablet 05/28/19 07/14/19 07/13/19 Rx Metformin HCl [metFORMIN] 1,000 mg PO BID #60 tablet 05/28/19 07/14/19 07/13/19 Rx Polyethylene Glycol 3350 [Miralax 17 gm PO QDAY #30 powd.pack 05/28/19 07/14/19 07/13/19 Rx 3350] ISOSORBIDE MONOnitrate [Imdur ER] 30 mg PO QDAY #30 tablet 07/01/19 07/14/19 07/13/19 Rx levoFLOXacin [Levaquin] 750 mg PO QDAY #8 tablet 07/20/19 Unknown Rx metroNIDAZOLE [Flagyl] 500 mg PO Q8HR #24 tablet 07/20/19 Unknown Rx ED Physical Exam - General Limitations: No Limitations General appearance: alert, in no apparent distress - Head Head exam: Present: atraumatic, normocephalic - Eye Eye exam: Present: PERRL, EOMI - ENT ENT exam: Present: mucous membranes moist - Respiratory Respiratory exam: Present: normal lung sounds bilaterally. Absent: respiratory distress, wheezes, rales, rhonchi, stridor, chest wall tenderness, accessory muscle use, decreased breath sounds, prolonged expiratory - Cardiovascular Cardiovascular Exam: Present: regular rate, normal rhythm, normal heart sounds. Absent: systolic murmur, diastolic murmur, rubs, gallop - GI/Abdominal GI/Abdominal exam: Present: soft, tenderness (LUQ, LLQ), normal bowel sounds. Absent: distended, guarding, rebound, rigid - Neurological Exam Neurological exam: Present: alert, other (oriented to person and time) - Psychiatric Psychiatric exam: Present: normal affect, normal mood - Skin Skin exam: Present: warm, dry, intact ED Course Vital Signs 07/28/19 07/28/19 11:20 11:25 Temperature 99.5 F 99.5 F Pulse Rate 71 71 Respiratory 20 20 Rate Blood Pressure 97/26 Blood Pressure 97/26 [Right] O2 Sat by Pulse 98 98 Oximetry - Consultations Consultation #1: 07/28/19 13:[address] Gao, regarding patient will accept and resume care of patient will admit patient to the hospital ED Medical Decision Making - Lab Data Result diagrams: 07/28/19 13:15 07/28/19 13:15 Lab Results 07/28/19 07/28/19 07/28/19 Range/Units 13:15 13:15 13:15 WBC 0.1 L* (4.5-11.0) K/mm3 RBC 1.07 L (3.65-5.03) M/mm3 Hgb 3.3 L* (10.1-14.3) gm/dl Hct 9.4 L* (30.3-42.9) % MCV 88 (79-97) fl MCH 31 (28-32) pg MCHC 35 H (30-34) % RDW 16.8 H (13.2-15.2) % Plt Count 17 L* (140-440) K/mm3 Lymph % (Auto) Cotton Classer Aide Add Manual Diff Complete Total Counted 5 Seg Neutrophils % Cotton Classer Aide Seg Neuts % (Manual) 20.0 L (40.0-70.0) % Band Neutrophils % 0 % Lymphocytes % (Manual) 80.0 H (13.4-35.0) % Reactive Lymphs % (Man) 0 % Monocytes % (Manual) 0 (0.0-7.3) % Eosinophils % (Manual) 0 (0.0-4.3) % Basophils % (Manual) 0 (0.0-1.8) % Metamyelocytes % 0 % Myelocytes % 0 % Promyelocytes % 0 % Blast Cells % 0 % Nucleated RBC % Not Reportable Seg Neutrophils # Man 0.0 L (1.8-7.7) K/mm3 Band Neutrophils # 0.0 K/mm3 Lymphocytes # (Manual) 0.0 L (1.2-5.4) K/mm3 Abs React Lymphs (Man) 0.0 K/mm3 Monocytes # (Manual) 0.0 (0.0-0.8) K/mm3 Eosinophils # (Manual) 0.0 (0.0-0.4) K/mm3 Basophils # (Manual) 0.0 (0.0-0.1) K/mm3 Metamyelocytes # 0.0 K/mm3 Myelocytes # 0.0 K/mm3 Promyelocytes # 0.0 K/mm3 Blast Cells # 0.0 K/mm3 WBC Morphology Not Reportable Hypersegmented Neuts Not Reportable Hyposegmented Neuts Not Reportable Hypogranular Neuts Not Reportable Smudge Cells Not Reportable Toxic Granulation Not Reportable Toxic Vacuolation Not Reportable Dohle Bodies Not Reportable Pelger-Huet Anomaly Not Reportable Pao Rods Not Reportable Platelet Estimate Appears decreased Clumped Platelets Not Reportable Plt Clumps, EDTA Not Reportable Large Platelets Not Reportable Giant Platelets Not Reportable Platelet Satelliting Not Reportable Plt Morphology Comment Not Reportable RBC Morphology Not Reportable Dimorphic RBCs Not Reportable Polychromasia Not Reportable Hypochromasia 3+ Poikilocytosis Not Reportable Anisocytosis 1+ Microcytosis Not Reportable Macrocytosis Not Reportable Spherocytes Not Reportable Pappenheimer Bodies Not Reportable Sickle Cells Not Reportable Target Cells Not Reportable Tear Drop Cells Not Reportable Ovalocytes Not Reportable Helmet Cells Not Reportable [place] Bodies Not Reportable [place] Rings Not Reportable Manuel Cells Not Reportable Bite Cells Not Reportable Crenated Cell Not Reportable Elliptocytes Not Reportable Acanthocytes (Spur) Not Reportable Rouleaux Not Reportable Hemoglobin C Crystals Not Reportable Schistocytes Not Reportable Malaria parasites Not Reportable Chung Bodies Not Reportable Hem Pathologist Commnt No Sodium 135 L (137-145) mmol/L Potassium 5.0 (3.6-5.0) mmol/L Chloride 105.1 (98-107) mmol/L Carbon Dioxide 18 L (22-30) mmol/L Anion Gap 17 mmol/L BUN 48 H (7-17) mg/dL Creatinine 1.2 (0.7-1.2) mg/dL Estimated GFR 53 ml/min BUN/Creatinine Ratio 40 % Glucose 120 H (65-100) mg/dL Lactic Acid 1.20 (0.7-2.0) mmol/L Calcium 8.1 L (8.4-10.2) mg/dL Total Bilirubin 1.00 (0.1-1.2) mg/dL AST < 5 L (5-40) units/L ALT < 5 L (7-56) units/L Alkaline Phosphatase 44 (35-129) units/L Ammonia (25-60) umol/L Total Creatine Kinase (30-135) units/L CK-MB (CK-2) (0.0-4.0) ng/mL CK-MB (CK-2) Rel Index (0-4) Troponin T < 0.010 (0.00-0.029) ng/mL Total Protein 7.1 (6.3-8.2) g/dL Albumin 3.4 L (3.9-5) g/dL Albumin/Globulin Ratio 0.9 % Blood Type Antibody Screen Crossmatch 07/28/19 07/28/19 07/28/19 Range/Units 13:15 13:15 13:23 WBC (4.5-11.0) K/mm3 RBC (3.65-5.03) M/mm3 Hgb (10.1-14.3) gm/dl Hct (30.3-42.9) % MCV (79-97) fl MCH (28-32) pg MCHC (30-34) % RDW (13.2-15.2) % Plt Count (140-440) K/mm3 Lymph % (Auto) Add Manual Diff Total Counted Seg Neutrophils % Seg Neuts % (Manual) (40.0-70.0) % Band Neutrophils % % Lymphocytes % (Manual) (13.4-35.0) % Reactive Lymphs % (Man) % Monocytes % (Manual) (0.0-7.3) % Eosinophils % (Manual) (0.0-4.3) % Basophils % (Manual) (0.0-1.8) % Metamyelocytes % % Myelocytes % % Promyelocytes % % Blast Cells % % Nucleated RBC % Seg Neutrophils # Man (1.8-7.7) K/mm3 Band Neutrophils # K/mm3 Lymphocytes # (Manual) (1.2-5.4) K/mm3 Abs React Lymphs (Man) K/mm3 Monocytes # (Manual) (0.0-0.8) K/mm3 Eosinophils # (Manual) (0.0-0.4) K/mm3 Basophils # (Manual) (0.0-0.1) K/mm3 Metamyelocytes # K/mm3 Myelocytes # K/mm3 Promyelocytes # K/mm3 Blast Cells # K/mm3 WBC Morphology Hypersegmented Neuts Hyposegmented Neuts Hypogranular Neuts Smudge Cells Toxic Granulation Toxic Vacuolation Dohle Bodies Pelger-Huet Anomaly Pao Rods Platelet Estimate Clumped Platelets Plt Clumps, EDTA Large Platelets Giant Platelets Platelet Satelliting Plt Morphology Comment RBC Morphology Dimorphic RBCs Polychromasia Hypochromasia Poikilocytosis Anisocytosis Microcytosis Macrocytosis Spherocytes Pappenheimer Bodies Sickle Cells Target Cells Tear Drop Cells Ovalocytes Helmet Cells [place] Bodies [place] Rings Manuel Cells Bite Cells Crenated Cell Elliptocytes Acanthocytes (Spur) Rouleaux Hemoglobin C Crystals Schistocytes Malaria parasites Chung Bodies Hem Pathologist Commnt Sodium (137-145) mmol/L Potassium (3.6-5.0) mmol/L Chloride (98-107) mmol/L Carbon Dioxide (22-30) mmol/L Anion Gap mmol/L BUN (7-17) mg/dL Creatinine (0.7-1.2) mg/dL Estimated GFR ml/min BUN/Creatinine Ratio % Glucose (65-100) mg/dL Lactic Acid (0.7-2.0) mmol/L Calcium (8.4-10.2) mg/dL Total Bilirubin (0.1-1.2) mg/dL AST (5-40) units/L ALT (7-56) units/L Alkaline Phosphatase (35-129) units/L Ammonia 21.0 L (25-60) umol/L Total Creatine Kinase < 7 L (30-135) units/L CK-MB (CK-2) < 1.0 (0.0-4.0) ng/mL CK-MB (CK-2) Rel Index 0.0 (0-4) Troponin T (0.00-0.029) ng/mL Total Protein (6.3-8.2) g/dL Albumin (3.9-5) g/dL Albumin/Globulin Ratio % Blood Type O POSITIVE Antibody Screen Negative Crossmatch See Detail - EKG Data EKG shows normal: sinus rhythm, axis, intervals, QRS complexes, ST-T waves Rate: normal - Radiology Data Radiology results: report reviewed CT ABDOMEN AND PELVIS WITHOUT CONTRAST HISTORY: abd pain, neutropenia COMPARISON: 07/20/2019. TECHNIQUE: Axial CT images were obtained through the abdomen and pelvis without IV contrast. Sagittal and coronal reformatted images. All CT scans at this location are performed using CT dose reduction for ALARA by means of automated exposure control. FINDINGS: CT ABDOMEN: Lung Bases: Mild cardiomegaly and small pericardial effusion. Liver: No significant abnormality. Biliary: Cholecystectomy changes are suspected. Spleen: There is marketed splenomegaly measuring 17.3 x 9.5 x 18.0 cm. The spleen is slightly heterogeneous. Multiple splenic lesions on the previous exam are poorly demonstrated on today's exam.. Pancreas: No significant abnormality. Adrenals: No significant abnormality. Kidneys: No significant abnormality. 2 cm simple cyst at the superior pole of the left kidney is noted. Lymphatics: No lymphadenopathy. Vasculature: Mild aortic calcifications. No aneurysm. Bowel/Peritoneum: Subtle inflammatory changes are suspected in the sigmoid colon. There are a few diverticula in this area suggesting early acute diverticulitis or focal colitis. The remaining bowel loops are unremarkable. The appendix is not confidently identified. No evidence for free fluid, free air or abscess. CT PELVIS: : No significant abnormality. Osseous Structures: Osteopenia and degenerative changes in the spine. Additional Findings: None IMPRESSION: Findings suggestive of acute sigmoid diverticulitis or focal colitis. Marketed splenomegaly, see above. Mild cardiomegaly and small pericardial effusion. Signer Name: Beck German Jr, MD Signed: 07/28/2019 2:48 PM Workstation Name: [id number] Transcribed By: TTR Dictated By: BECK GERMAN JR, MD Electronically Authenticated By: BECK GERMAN JR, MD Signed Date/Time: 07/28/191447 DD/ 42 TD/TT: - Medical Decision Making Patient is a 78-year-old female presents emergency room with complaints of left- sided abdominal pain that began 3 days ago. She has associated generalized weakness, decreased appetite, subjective fever, nausea, vomiting, diarrhea. The family denies any melena, hematochezia, hematemesis, dysuria. 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 The patient family states that she last had chemotherapy last week but did not get it this week due to her not feeling well. family denies any allergies to medications. vitals with hypotension, afebrile, no tachycardia. pt given IVF. labs show severe pancytopenia, with H/H 3/9, pt transfused [address] abd pelvis: Findings suggestive of acute sigmoid diverticulitis or focal colitis. Marketed splenomegaly, see above. Mild cardiomegaly and small pericardial effusion. pt given cefepime, vancomycin empirically for possible sepsis, and given flagyl due to diverticulitis. EKG is normal. discussed case with Dr. Rodriguez and he evaluated patient and was involved in patients care and advised admission to the hospital. spoke with Dr. Gao, hospitalist who accepted and resumed care of patient. pt admitted to the hospital. - Differential Diagnosis sepsis, neutropenic fever, colitis, diverticulitis, cancer, PUD, GI bleed Critical care attestation.: If time is entered above; I have spent that time in minutes in the direct care of this critically ill patient, excluding procedure time. ED Disposition Clinical Impression: Pancytopenia, Diverticulitis Abdominal pain Qualifiers: Abdominal location: left upper quadrant Qualified Code(s): R10.12 - Left upper quadrant pain Disposition: OP ADMIT IP TO THIS HOSP Is pt being admited?: Yes Does the pt Need Aspirin: No Condition: Poor
[2019-07-28] MEDS ORDERED: MEROPENEM/NS 1 GRAM/100 ML 1 GRAM/100 ML BAG IV ONE (13:03)
[2019-07-28] MEDS ORDERED: SODIUM CHLORIDE 0.9% 500 ML 500 ML IV ONE (13:05)
[2019-07-28 13:35] LABS: Mean Corpuscular HGB Conc 35 % (30-34); Mean Corpuscular Volume 88 fl (79-97); Red Blood Count 1.07 M/mm3 (3.65-5.03); Red Cell Distribution Width 16.8 % (13.2-15.2)
[2019-07-28 13:39] LABS: Hematocrit 9.4 % (30.3-42.9); Hemoglobin 3.3 gm/dl (10.1-14.3); Platelet Count 17 K/mm3 (140-440)
[2019-07-28 13:49] LABS: Creatine Kinase MB < 1.0 ng/mL (0.0-4.0)
[2019-07-28 13:53] LABS: Alanine Aminotransferase < 5 units/L (7-56); Albumin 3.4 g/dL (3.9-5); BUN/Creatinine Ratio 40; Blood Urea Nitrogen 48 mg/dL (7-17); Calcium 8.1 mg/dL (8.4-10.2); Hemolysis Index 0
[2019-07-28] MEDS ORDERED: CEFEPIME/NS 2 GM/100 ML 2 GM/100 ML BAG IV ONE (13:58)
[2019-07-28] MEDS ORDERED: VANCOMYCIN PHARMACY TO DOSE IV SCH ×2 (14:00→22:00)
[2019-07-28 14:19] LABS: Anisocytosis 1+; Basophils % (Manual) 0 % (0.0-1.8); Eosinophils % (Manual) 0 % (0.0-4.3); Monocytes % (Manual) 0 % (0.0-7.3); Total Cells Counted 5
[2019-07-28 14:20] LABS: Hypochromasia 3+; Platelet Estimate Appears Decreased
[2019-07-28] MEDS ORDERED: VANCOMYCIN 750 MG in SODIUM CHLORIDE 0.9% 250ML 250 ML IV ONE (14:20)
[2019-07-28 14:34] LABS: Bilirubin,Urine NEG (Negative); Blood,Urine NEG (Negative); Color,Urine Amber (Yellow); Mucus,Urine FEW /HPF; Protein,Urine <15 mg/dL mg/dL (Negative); RBC,Urine < 1.0 /HPF (0.0-6.0); Urobilinogen,Urine < 2.0 mg/dL (<2.0); WBC,Urine < 1.0 /HPF (0.0-6.0)
--- NOTE | 2019-07-28 14:35 | XRay Report ---
CHEST 1 VIEW INDICATION: suspected sepsis. COMPARISON: 06/29/2019 FINDINGS: Support devices: Left arm PICC terminates in the right atrium Heart: Mild cardiomegaly Lungs/Pleura: Patchy bilateral perihilar prominence is identified suggestive of pulmonary congestion. Perihilar infiltrate could be considered. No pleural effusion or pneumothorax. Additional findings: None. IMPRESSION: Mild cardiomegaly. Bilateral perihilar infiltrates versus edema. Signer Name: Beck German Jr, MD Signed: 07/28/2019 2:30 PM Workstation Name: [id number]
--- NOTE | 2019-07-28 14:52 | Cat Scan Report ---
CT ABDOMEN AND PELVIS WITHOUT CONTRAST HISTORY: abd pain, neutropenia COMPARISON: 07/20/2019. TECHNIQUE: Axial CT images were obtained through the abdomen and pelvis without IV contrast. Sagittal and coronal reformatted images. All CT scans at this location are performed using CT dose reduction for ALARA by means of automated exposure control. FINDINGS: CT ABDOMEN: Lung Bases: Mild cardiomegaly and small pericardial effusion. Liver: No significant abnormality. Biliary: Cholecystectomy changes are suspected. Spleen: There is marketed splenomegaly measuring 17.3 x 9.5 x 18.0 cm. The spleen is slightly heterog eneous. Multiple splenic lesions on the previous exam are poorly demonstrated on today's exam.. Pancreas: No significant abnormality. Adrenals: No significant abnormality. Kidneys: No significant abnormality. 2 cm simple cyst at the superior pole of the left kidney is note d. Lymphatics: No lymphadenopathy. Vasculature: Mild aortic calcifications. No aneurysm. Bowel/Peritoneum: Subtle inflammatory changes are suspected in the sigmoid colon. There are a few div erticula in this area suggesting early acute diverticulitis or focal colitis. The remaining bowel loo ps are unremarkable. The appendix is not confidently identified. No evidence for free fluid, free air or abscess. CT PELVIS: : No significant abnormality. Osseous Structures: Osteopenia and degenerative changes in the spine. Additional Findings: None IMPRESSION: Findings suggestive of acute sigmoid diverticulitis or focal colitis. Marketed splenomegaly, see above. Mild cardiomegaly and small pericardial effusion. Signer Name: Beck German Jr, MD Signed: 07/28/2019 2:48 PM Workstation Name: [id number]
[2019-07-28] MEDS ORDERED: metroNIDAZOLE/NS 500 MG/100 ML 500 MG/100 ML BAG IV ONE ×2 (15:05→16:37)
[2019-07-28] MEDS ORDERED: ACETAMINOPHEN 325 MG TAB PO ONE (18:09)
[2019-07-28] MEDS ORDERED: ACETAMINOPHEN 325 MG TAB ONE (18:10)
[2019-07-28] MEDS ORDERED: CEFEPIME/NS 2 GM/100 ML 2 GM/100 ML BAG IV SCH (22:00)
--- NOTE | 2019-07-29 06:01 | Event Note ---
Date: 07/28/19 See H/p in reports Acute Diverticulitis Pancytopenia sec to Myelodysplasia' BOne cancer--Patient not able to specify
[2019-07-29] MEDS ORDERED: SODIUM CHLORIDE 0.9% 500 ML 500 ML IV ONE (06:10)
[2019-07-29] MEDS: HYDROmorphone 1 MG/1 ML INJ IV PRN ×2 (07:12→20:05)
--- NOTE | 2019-07-29 07:48 | History and Physical Report ---
CHIEF COMPLAINT: Left lower quadrant abdominal pain for 3 days. HISTORY OF PRESENT ILLNESS: A 78-year-old female with history of myelodysplastic syndrome, bone cancer, type 2 diabetes and hypertension, comes in for left lower quadrant pain of 3 days' duration, associated with generalized weakness, decreased appetite, fever, nausea, vomiting and diarrhea. No melena, no hematochezia. No hematemesis or dysuria. The patient has a history of stomach cancer with mets to the bone, diabetes. The patient had chemotherapy last week, but did not get this week because of not feeling well. Feels weak. Pain in the left lower quadrant. Pain is about 7-8 on a scale of 1-10. Had vomiting 3-4 times. Loose stools couple of times. Pain is sharp in nature and intermittent. No exacerbating or relieving factors. PAST MEDICAL HISTORY: As mentioned hypertension, type 2 diabetes, stomach cancer with bone metastasis, myelodysplastic syndrome. PAST SURGICAL HISTORY: Cholecystectomy. Also stomach cancer. PICC line in the left upper extremity. SOCIAL HISTORY: Current every day smoker. No alcohol. No recreational drugs. FAMILY HISTORY: Hypertension. REVIEW OF SYSTEMS: Significant for low-grade fever, left lower quadrant pain, generalized weakness also associated with nausea, vomiting, and diarrhea. Pain is about 7-8 on a scale of 1-10. Otherwise, review of systems negative. PHYSICAL EXAMINATION: GENERAL: Elderly female, cooperative during examination, bit lethargic. VITAL SIGNS: Temperature is 99.7, pulse is 74, blood pressure 128/33, sats 99%. HEENT: Pale mucous membranes. NECK: Supple, no lymphadenopathy, no thyromegaly. LUNGS: Clear to auscultation and percussion. Good air entry. CARDIOVASCULAR: S1, S2 heard. No gallop, no murmur, no rub. Apical impulse in left fifth intercostal space and midclavicular line. ABDOMEN: Soft and benign. Tenderness present in the left lower quadrant. Guarding present. Hernial orifices are normal. EXTREMITIES: Good pedal pulses. CENTRAL NERVOUS SYSTEM: Alert and oriented. The patient is a bit lethargic. SKIN: Normal. LABORATORY DATA: Significant for a white count of 0.1, H and H is 3.3 and 9.4, platelet count of 17,000. Sodium is 135, potassium is 5.0, chloride is 105, bicarbonate is 18, BUN and creatinine is 48 and 1.2. AST is less than 5, ALT is less than 5. Ammonia is 21. Urine, no white blood cells. CT of the abdomen shows sigmoid diverticulitis. Findings suggestive of acute sigmoid diverticulitis or focal colitis. Marked splenomegaly and mild cardiomegaly and small pericardial effusion. ASSESSMENT AND PLAN: 1. Severe pancytopenia. The patient to be transfused 2-4 units of packed red blood cells. Also, platelet transfusion. Hematology consult requested. 2. Sepsis secondary to sigmoid diverticulitis. The patient initiated on cefepime and vancomycin. 3. Sigmoid diverticulitis. The patient initiated on cefepime and vancomycin. No perforation. 4.Stomach cancer with metastasis. Hematology consult requested. The patient did not get chemotherapy this week. 5. Hypertension. Continue antihypertensive, amlodipine. We will hold it if her blood pressure is low. 6. Type 2 diabetes, coverage for now. Check hemoglobin A1c. Sepsis secondary to sigmoid diverticulitis. The patient is on cefepime and IV fluids and vancomycin. 7. Deep venous thrombosis prophylaxis, only sequential compression devices. No Lovenox. No heparin. Prognosis is poor: DNR discussed, but no decision was made. In summary, the patient has; 1. Sepsis. 2. Pancytopenia. 3. Myelodysplastic syndrome. 4. Sigmoid diverticulitis. 5. Hypertension. 6. Type 2 diabetes. Critical care time is 32 minutes. JOB# [id number] TAMY/SHANNA SANCHEZ
--- NOTE | 2019-07-29 07:57 | Event Note ---
Date: 07/29/19 [id number]
--- NOTE | 2019-07-29 08:10 | Progress Note ---
Assessment and Plan Assessment and plan: --Sigmoid diverticulitis; continue antibiotics N.p.o., surgery consulted --Sepsis; secondary to sigmoid diverticulitis Follow cultures, antibiotics, ID consult if needed --Pancytopenia; secondary to myelodysplastic syndrome Transfuse PRBC, platelets, neutropenia precautions Management per hematology oncology --Myelodysplastic syndrome; management per hematology --Hypertension; moderate control continue current antihypertensives PRN medications, --Diabetes mellitus; Accu-Chek sliding scale coverage and ADA diet Insulin as needed --Moderate malnutrition and hypoalbuminemia; nutrition supplements and supportive care --DVT prophylaxis; SCDs No pharmacologic anticoagulation in view of pancytopenia --Full code Patient is critically ill very poor prognosis History Interval history: Patient seen and examined medical records reviewed Admitted with pancytopenia, neutropenic precautions Patient complains of generalized weakness Vital signs noted Hospitalist Physical - Constitutional Vitals: Temp Pulse Resp BP Pulse Ox 98.0 F 74 20 140/35 100 07/29/19 04:00 07/29/19 03:30 07/29/19 03:30 07/29/19 03:30 07/29/19 03:30 General appearance: Present: mild distress, well-nourished - EENT Eyes: Present: PERRL, EOM intact - Neck Neck: Present: supple, normal ROM - Respiratory Respiratory effort: normal Respiratory: bilateral: diminished, negative: rales, rhonchi, wheezing - Cardiovascular Rhythm: regular Heart Sounds: Present: S1 & S2 - Extremities Extremities: no ischemia, No edema - Abdominal General gastrointestinal: soft, non-tender, non-distended, normal bowel sounds - Integumentary Integumentary: Present: clear, warm - Psychiatric Psychiatric: appropriate mood/affect, cooperative - Neurologic Neurologic: moves all extremities Results - Labs CBC & Chem 7: 07/30/19 04:18 07/30/19 04:18 Labs: Laboratory Last Values WBC 0.1 K/mm3 (4.5-11.0) L* 07/28/19 13:15 RBC 1.07 M/mm3 (3.65-5.03) L 07/28/19 13:15 Hgb 3.3 gm/dl (10.1-14.3) L* 07/28/19 13:15 Hct 9.4 % (30.3-42.9) L* 07/28/19 13:15 MCV 88 fl (79-97) 07/28/19 13:15 MCH 31 pg (28-32) 07/28/19 13:15 MCHC 35 % (30-34) H 07/28/19 13:15 RDW 16.8 % (13.2-15.2) H 07/28/19 13:15 Plt Count 17 K/mm3 (140-440) L* 07/28/19 13:15 Lymph % (Auto) Position Classification Specialist 07/28/19 13:15 Add Manual Diff Complete 07/28/19 13:15 Total Counted 5 07/28/19 13:15 Seg Neutrophils % Position Classification Specialist 07/28/19 13:15 Seg Neuts % (Manual) 20.0 % (40.0-70.0) L 07/28/19 13:15 Band Neutrophils % 0 % 07/28/19 13:15 Lymphocytes % (Manual) 80.0 % (13.4-35.0) H 07/28/19 13:15 Reactive Lymphs % (Man) 0 % 07/28/19 13:15 Monocytes % (Manual) 0 % (0.0-7.3) 07/28/19 13:15 Eosinophils % (Manual) 0 % (0.0-4.3) 07/28/19 13:15 Basophils % (Manual) 0 % (0.0-1.8) 07/28/19 13:15 Metamyelocytes % 0 % 07/28/19 13:15 Myelocytes % 0 % 07/28/19 13:15 Promyelocytes % 0 % 07/28/19 13:15 Blast Cells % 0 % 07/28/19 13:15 Nucleated RBC % Not Reportable 07/28/19 13:15 Seg Neutrophils # Man 0.0 K/mm3 (1.8-7.7) L 07/28/19 13:15 Band Neutrophils # 0.0 K/mm3 07/28/19 13:15 Lymphocytes # (Manual) 0.0 K/mm3 (1.2-5.4) L 07/28/19 13:15 Abs React Lymphs (Man) 0.0 K/mm3 07/28/19 13:15 Monocytes # (Manual) 0.0 K/mm3 (0.0-0.8) 07/28/19 13:15 Eosinophils # (Manual) 0.0 K/mm3 (0.0-0.4) 07/28/19 13:15 Basophils # (Manual) 0.0 K/mm3 (0.0-0.1) 07/28/19 13:15 Metamyelocytes # 0.0 K/mm3 07/28/19 13:15 Myelocytes # 0.0 K/mm3 07/28/19 13:15 Promyelocytes # 0.0 K/mm3 07/28/19 13:15 Blast Cells # 0.0 K/mm3 07/28/19 13:15 WBC Morphology Not Reportable 07/28/19 13:15 Hypersegmented Neuts Not Reportable 07/28/19 13:15 Hyposegmented Neuts Not Reportable 07/28/19 13:15 Hypogranular Neuts Not Reportable 07/28/19 13:15 Smudge Cells Not Reportable 07/28/19 13:15 Toxic Granulation Not Reportable 07/28/19 13:15 Toxic Vacuolation Not Reportable 07/28/19 13:15 Dohle Bodies Not Reportable 07/28/19 13:15 Pelger-Huet Anomaly Not Reportable 07/28/19 13:15 Pao Rods Not Reportable 07/28/19 13:15 Platelet Estimate Appears decreased 07/28/19 13:15 Clumped Platelets Not Reportable 07/28/19 13:15 Plt Clumps, EDTA Not Reportable 07/28/19 13:15 Large Platelets Not Reportable 07/28/19 13:15 Giant Platelets Not Reportable 07/28/19 13:15 Platelet Satelliting Not Reportable 07/28/19 13:15 Plt Morphology Comment Not Reportable 07/28/19 13:15 RBC Morphology Not Reportable 07/28/19 13:15 Dimorphic RBCs Not Reportable 07/28/19 13:15 Polychromasia Not Reportable 07/28/19 13:15 Hypochromasia 3+ 07/28/19 13:15 Poikilocytosis Not Reportable 07/28/19 13:15 Anisocytosis 1+ 07/28/19 13:15 Microcytosis Not Reportable 07/28/19 13:15 Macrocytosis Not Reportable 07/28/19 13:15 Spherocytes Not Reportable 07/28/19 13:15 Pappenheimer Bodies Not Reportable 07/28/19 13:15 Sickle Cells Not Reportable 07/28/19 13:15 Target Cells Not Reportable 07/28/19 13:15 Tear Drop Cells Not Reportable 07/28/19 13:15 Ovalocytes Not Reportable 07/28/19 13:15 Helmet Cells Not Reportable 07/28/19 13:15 [place] Bodies Not Reportable 07/28/19 13:15 Lewis Rings Not Reportable 07/28/19 13:15 [place] Cells Not Reportable 07/28/19 13:15 Bite Cells Not Reportable 07/28/19 13:15 Crenated Cell Not Reportable 07/28/19 13:15 Elliptocytes Not Reportable 07/28/19 13:15 Acanthocytes (Spur) Not Reportable 07/28/19 13:15 Rouleaux Not Reportable 07/28/19 13:15 Hemoglobin C Crystals Not Reportable 07/28/19 13:15 Schistocytes Not Reportable 07/28/19 13:15 Malaria parasites Not Reportable 07/28/19 13:15 Chung Bodies Not Reportable 07/28/19 13:15 Hem Pathologist Commnt No 07/28/19 13:15 Sodium 135 mmol/L (137-145) L 07/28/19 13:15 Potassium 5.0 mmol/L (3.6-5.0) 07/28/19 13:15 Chloride 105.1 mmol/L (98-107) 07/28/19 13:15 Carbon Dioxide 18 mmol/L (22-30) L 07/28/19 13:15 Anion Gap 17 mmol/L 07/28/19 13:15 BUN 48 mg/dL (7-17) H 07/28/19 13:15 Creatinine 1.2 mg/dL (0.7-1.2) 07/28/19 13:15 Estimated GFR 53 ml/min 07/28/19 13:15 BUN/Creatinine Ratio 40 % 07/28/19 13:15 Glucose 120 mg/dL (65-100) H 07/28/19 13:15 Lactic Acid 1.80 mmol/L (0.7-2.0) 07/28/19 15:16 Calcium 8.1 mg/dL (8.4-10.2) L 07/28/19 13:15 Total Bilirubin 1.00 mg/dL (0.1-1.2) 07/28/19 13:15 AST < 5 units/L (5-40) L 07/28/19 13:15 ALT < 5 units/L (7-56) L 07/28/19 13:15 Alkaline Phosphatase 44 units/L (35-129) 07/28/19 13:15 Ammonia 21.0 umol/L (25-60) L 07/28/19 13:15 Total Creatine Kinase < 7 units/L (30-135) L 07/28/19 13:15 CK-MB (CK-2) < 1.0 ng/mL (0.0-4.0) 07/28/19 13:15 CK-MB (CK-2) Rel Index 0.0 (0-4) 07/28/19 13:15 Troponin T < 0.010 ng/mL (0.00-0.029) 07/28/19 13:15 Total Protein 7.1 g/dL (6.3-8.2) 07/28/19 13:15 Albumin 3.4 g/dL (3.9-5) L 07/28/19 13:15 Albumin/Globulin Ratio 0.9 % 07/28/19 13:15 Urine Color Vanessa (Yellow) 07/28/19 Unknown Urine Turbidity Clear (Clear) 07/28/19 Unknown Urine pH 5.0 (5.0-7.0) 07/28/19 Unknown Ur Specific [place] 1.019 (1.003-1.030) 07/28/19 Unknown Urine Protein <15 mg/dl mg/dL (Negative) 07/28/19 Unknown Urine Glucose (UA) Neg mg/dL (Negative) 07/28/19 Unknown Urine Ketones Neg mg/dL (Negative) 07/28/19 Unknown Urine Blood Neg (Negative) 07/28/19 Unknown Urine Nitrite Neg (Negative) 07/28/19 Unknown Urine Bilirubin Neg (Negative) 07/28/19 Unknown Urine Urobilinogen < 2.0 mg/dL (<2.0) 07/28/19 Unknown Ur Leukocyte Esterase Neg (Negative) 07/28/19 Unknown Urine WBC (Auto) < 1.0 /HPF (0.0-6.0) 07/28/19 Unknown Urine RBC (Auto) < 1.0 /HPF (0.0-6.0) 07/28/19 Unknown U Epithel Cells (Auto) 1.0 /HPF (0-13.0) 07/28/19 Unknown Urine Mucus Few /HPF 07/28/19 Unknown Blood Type O POSITIVE 07/28/19 13:23 Antibody Screen Negative 07/28/19 13:23 Crossmatch See Detail 07/28/19 13:23 Active Medications - Current Medications Current Medications: Generic Name Dose Route Start Last Admin Trade Name Freq PRN Reason Stop Dose Admin Hydromorphone HCl 0.5 mg 07/28/19 18:10 07/29/19 07:12 Dilaudid IV 0.5 mg Q3H PRN Administration Pain , Severe (7-10) Cefepime HCl 2 gm in 100 mls @ 200 mls/hr 07/29/19 14:00 Cefepime/Ns 2 Gm/100 Ml IV Q24H [facility] Protocol Vancomycin HCl 1 gm in 250 mls @ 167.007 mls/hr 07/29/19 10:00 Vancomycin/Ns 1 Gm/250 Ml IV Q24HR [facility] Insulin Human Lispro 0 unit 07/29/19 07:30 Humalog SUB-Q ACHS [facility] Protocol
[2019-07-29] MEDS: INSULIN LISPRO 100 UNIT/ML SUB-Q SCH ×5 (08:31→22:23)
[2019-07-29] MEDS ORDERED: SODIUM CHLORIDE 0.9% 250ML 250 ML IV ONE (09:15)
[2019-07-29] MEDS ORDERED: VANCOMYCIN/NS 1 GM/250 ML 1 GM/250 ML BAG IV SCH (10:00)
[2019-07-29] MEDS: POLYETHYLENE GLYCOL 3350 17 GM POWDER PO SCH (10:46)
[2019-07-29] MEDS: amLODIPine 5 MG TAB PO SCH (10:47)
[2019-07-29 10:54] LABS: Mean Corpuscular HGB Conc 35 % (30-34); Mean Corpuscular Volume 89 fl (79-97); Red Blood Count 1.51 M/mm3 (3.65-5.03); Red Cell Distribution Width 16.9 % (13.2-15.2)
[2019-07-29 11:12] LABS: Hematocrit 13.3 % (30.3-42.9); Hemoglobin 4.6 gm/dl (10.1-14.3); Platelet Count 13 K/mm3 (140-440)
[2019-07-29 11:17] LABS: Albumin 2.8 g/dL (3.9-5); BUN/Creatinine Ratio 45; Blood Urea Nitrogen 36 mg/dL (7-17); Calcium 7.5 mg/dL (8.4-10.2); Hemolysis Index 2
[2019-07-29 11:20] LABS: Alanine Aminotransferase < 5 units/L (7-56)
[2019-07-29] MEDS ORDERED: SODIUM CHLORIDE 0.9% 500 ML 500 ML ONE (11:43)
[2019-07-29] MEDS: ACETAMINOPHEN 500 MG TAB PO SCH ×2 (11:45→18:07)
--- NOTE | 2019-07-29 12:59 | Consultation ---
REFERRED BY: Dr. Gao. REASON FOR CONSULTATION: Severe anemia, severe leukopenia, thrombocytopenia. HISTORY OF PRESENT ILLNESS: I saw, the patient, a 78-year-old female in the medical floor. The patient is known to me. She has myelodysplastic syndrome. This was originally diagnosed in 2016. She received one chemotherapy in 2018 and then was lost to follow up. She was recently admitted to the hospital. During this admission, the patient was severely anemic and she received transfusion support. There was a plan to do a bone marrow biopsy; however, the IR team did not do same because of cytopenia, was planning to do the same as outpatient basis; however, she did not keep an appointment. The patient has a left arm PICC line. She has hepatosplenomegaly with lesions in the spleen. She also has history of hypertension, diabetes and MRSA in the finger. She came to the hospital because of feeling unwell. During this admission, no fever, no vomiting, no diarrhea. No chest pain, no shortness of breath now. At admission, she had generalized weakness, fever, nausea, vomiting and diarrhea. PAST MEDICAL HISTORY: As above. PAST SURGICAL HISTORY: PICC line. SOCIAL HISTORY: History of smoking present. PHYSICAL EXAMINATION: VITAL SIGNS: Temperature 98, pulse 82, respirations 18, BP 119/22. HEENT: Pallor present, no icterus. NECK: No neck lymph nodes. HEART: S1, S2. LUNGS: Clear to auscultation. ABDOMEN: Soft. Spleen palpable. EXTREMITIES: No calf tenderness. Left arm PICC line present. NEUROLOGIC: Alert, awake, oriented. LABORATORY DATA: White cells 0.1, hemoglobin 3.3, MCV 88, platelets 17. Post-transfusion hemoglobin was 4.6. Potassium 4.1, creatinine 0.8, calcium 7.5. RADIOLOGY: The patient underwent CT abdomen on 07/13/2019 and again on 07/28/2019. This shows splenomegaly with lesions in the spleen. ASSESSMENT AND PLAN: 1. Anemia, leukopenia, thrombocytopenia, severe. Transfusion support as needed. In spite of transfusion, the patient's counts have not been improving. There was a plan for a bone marrow biopsy. This could not be done as an inpatient status, so I was planning to do as an outpatient; however, she did not keep her appointment. She is on reverse isolation. I am not sure what the long-term plan will be, which will help the patient. She has had received chemotherapy for her myelodysplastic syndrome, it does not appear to be doing any good due to her age. I am not sure if she will be a candidate for bone marrow transplant evaluation with such severe cytopenia. Last bone marrow biopsy was done in this year of March, which showed 90% to 100% cellularity with myelodysplastic syndrome. 2. History of splenomegaly with spleen lesions. 3. History of methicillin-resistant Staphylococcus aureus. 4. History of diabetes. 5. History of hypertension. I will follow the patient during inpatient stay. JOB# [id number] NM/NTS
[2019-07-29] MEDS ORDERED: ALTEPLASE 2 MG INJ IV ONE (13:00)
[2019-07-29] MEDS ORDERED: WATER FOR INJ Sterile (PF) 10 ML ONE (13:10)
[2019-07-29] MEDS: VENLAFAXINE 75 MG TAB PO SCH ×2 (13:14→22:22)
[2019-07-29] MEDS: TBO-FILGRASTIM 300 MCG/0.5 ML SUB-Q SCH (13:16)
[2019-07-29] MEDS: HYDROcodone/ACETAMINOPHEN 5-325 MG TAB PO PRN (13:17)
[2019-07-29 13:26] LABS: Basophils % (Manual) 0 % (0.0-1.8); Eosinophils % (Manual) 2.9 % (0.0-4.3); Monocytes % (Manual) 0 % (0.0-7.3); Total Cells Counted 35
[2019-07-29 13:27] LABS: Anisocytosis 1+; Hypochromasia 3+; Platelet Estimate Consistent w Auto
--- NOTE | 2019-07-29 13:45 | Consultation ---
History of Present Illness - Reason for Consult Consult date: 07/29/19 sepsis - History of Present Illness 78 yo F Mult med probs adm w sepsis Known myelodysplastic synd ?diverticulitis now w headache Past History Past Medical History: other (myelodysplastic synd ) Medications and Allergies Allergies Allergy/AdvReac Type Severity Reaction Status Date / Time No Known Allergies Allergy Verified 06/06/19 08:16 Home Medications Medication Instructions Recorded Confirmed Last Taken Type Acetaminophen [Acetaminophen TAB] 500 mg PO Q6HR 05/26/19 07/14/19 07/13/19 History Venlafaxine [Effexor] 75 mg PO BID 05/26/19 07/14/19 07/13/19 History Amlodipine Besylate [Norvasc] 5 mg PO DAILY #30 tablet 05/28/19 07/14/19 07/13/19 Rx HYDROcodone/APAP 5-325 [[place]ron 1 each PO Q6HR PRN #10 tablet 05/28/19 07/14/19 07/13/19 Rx 5-325 mg TAB] Loratadine [Claritin] 10 mg PO DAILY #30 tablet 05/28/19 07/14/19 07/13/19 Rx Metformin HCl [metFORMIN] 1,000 mg PO BID #60 tablet 05/28/19 07/14/19 07/13/19 Rx Polyethylene Glycol 3350 [Miralax 17 gm PO QDAY #30 powd.pack 05/28/19 07/14/19 07/13/19 Rx 3350] ISOSORBIDE MONOnitrate [Imdur ER] 30 mg PO QDAY #30 tablet 07/01/19 07/14/19 07/13/19 Rx levoFLOXacin [Levaquin] 750 mg PO QDAY #8 tablet 07/20/19 Unknown Rx metroNIDAZOLE [Flagyl] 500 mg PO Q8HR #24 tablet 07/20/19 Unknown Rx Active Meds: Active Medications Acetaminophen (Tylenol) 500 mg PO Q6HR [facility] Last Admin: 07/29/19 11:45 Dose: 500 mg Documented by: Acetaminophen/Hydrocodone Bitart (Byron 5/325) 1 each PO Q6HR PRN PRN Reason: PAIN Last Admin: 07/29/19 13:17 Dose: 1 each Documented by: Amlodipine Besylate (Amlodipine) 5 mg PO DAILY [facility] Last Admin: 07/29/19 10:47 Dose: Not Given Documented by: Hydromorphone HCl (Dilaudid) 0.5 mg IV Q3H PRN PRN Reason: Pain , Severe (7-10) Last Admin: 07/29/19 07:12 Dose: 0.5 mg Documented by: Cefepime HCl (Cefepime/Ns 2 Gm/100 Ml) 2 gm in 100 mls @ 200 mls/hr IV Q24H [facility]; Protocol Vancomycin HCl (Vancomycin/Ns 1 Gm/250 Ml) 1 gm in 250 mls @ 167.007 mls/hr IV Q24HR [facility] Last Admin: 07/29/19 09:18 Dose: 167.007 mls/hr Documented by: Insulin Human Lispro (Humalog) 0 unit SUB-Q ACHS [facility]; Protocol Last Admin: 07/29/19 12:58 Dose: Not Given Documented by: Isosorbide Mononitrate (Imdur) 30 mg PO QDAY [facility] Last Admin: 07/29/19 10:48 Dose: 30 mg Documented by: Polyethylene Glycol (Miralax 3350) 17 gm PO QDAY [facility] Last Admin: 07/29/19 10:46 Dose: 17 gm Documented by: Tbo-Filgrastim (Granix) 300 mcg SUB-Q DAILY [facility] Stop: 08/01/19 13:00 Last Admin: 07/29/19 13:16 Dose: 300 mcg Documented by: Venlafaxine HCl (Effexor) 75 mg PO BID [facility] Last Admin: 07/29/19 13:14 Dose: 75 mg Documented by: Review of Systems Constitutional: weakness, malaise, lethargy Exam - Constitutional Vitals: Temp Pulse Resp BP Pulse Ox 97.7 F 81 21 108/34 95 07/29/19 12:10 07/29/19 12:10 07/29/19 12:10 07/29/19 12:10 07/29/19 12:10 General appearance: Present: no acute distress, other (frail) - Neck Neck: Present: supple - Respiratory Respiratory effort: normal Respiratory: bilateral: CTA - Cardiovascular Rhythm: regular - Extremities Extremities: no ischemia - Abdominal General gastrointestinal: Present: soft, distended - Rectal Rectal Exam: deferred - Integumentary Integumentary: Present: warm - Psychiatric Psychiatric: appropriate mood/affect - Neurologic Neurologic: CNII-XII intact, other (L headache ) Results - Labs CBC & Chem 7: 07/29/19 10:26 07/29/19 10:26 Labs: Abnormal lab results 07/28/19 07/28/19 07/28/19 Range/Units 13:15 13:15 13:15 WBC 0.1 L* (4.5-11.0) K/mm3 RBC 1.07 L (3.65-5.03) M/mm3 Hgb 3.3 L* (10.1-14.3) gm/dl Hct 9.4 L* (30.3-42.9) % MCHC 35 H (30-34) % RDW 16.8 H (13.2-15.2) % Plt Count 17 L* (140-440) K/mm3 Seg Neuts % (Manual) 20.0 L (40.0-70.0) % Lymphocytes % (Manual) 80.0 H (13.4-35.0) % Seg Neutrophils # Man 0.0 L (1.8-7.7) K/mm3 Lymphocytes # (Manual) 0.0 L (1.2-5.4) K/mm3 Sodium 135 L (137-145) mmol/L Chloride (98-107) mmol/L Carbon Dioxide 18 L (22-30) mmol/L BUN 48 H (7-17) mg/dL Glucose 120 H (65-100) mg/dL Calcium 8.1 L (8.4-10.2) mg/dL AST < 5 L (5-40) units/L ALT < 5 L (7-56) units/L Ammonia 21.0 L (25-60) umol/L Total Creatine Kinase (30-135) units/L Albumin 3.4 L (3.9-5) g/dL Crossmatch 07/28/19 07/28/19 07/29/19 Range/Units 13:15 13:23 10:26 WBC 0.1 L* (4.5-11.0) K/mm3 RBC 1.51 L (3.65-5.03) M/mm3 Hgb 4.6 L* (10.1-14.3) gm/dl Hct 13.3 L* (30.3-42.9) % MCHC 35 H (30-34) % RDW 16.9 H (13.2-15.2) % Plt Count 13 L* (140-440) K/mm3 Seg Neuts % (Manual) 5.7 L (40.0-70.0) % Lymphocytes % (Manual) 91.4 H (13.4-35.0) % Seg Neutrophils # Man 0.0 L (1.8-7.7) K/mm3 Lymphocytes # (Manual) 0.1 L (1.2-5.4) K/mm3 Sodium (137-145) mmol/L Chloride (98-107) mmol/L Carbon Dioxide (22-30) mmol/L BUN (7-17) mg/dL Glucose (65-100) mg/dL Calcium (8.4-10.2) mg/dL AST (5-40) units/L ALT (7-56) units/L Ammonia (25-60) umol/L Total Creatine Kinase < 7 L (30-135) units/L Albumin (3.9-5) g/dL Crossmatch See Detail 07/29/19 Range/Units 10:26 WBC (4.5-11.0) K/mm3 RBC (3.65-5.03) M/mm3 Hgb (10.1-14.3) gm/dl Hct (30.3-42.9) % MCHC (30-34) % RDW (13.2-15.2) % Plt Count (140-440) K/mm3 Seg Neuts % (Manual) (40.0-70.0) % Lymphocytes % (Manual) (13.4-35.0) % Seg Neutrophils # Man (1.8-7.7) K/mm3 Lymphocytes # (Manual) (1.2-5.4) K/mm3 Sodium (137-145) mmol/L Chloride 111.2 H (98-107) mmol/L Carbon Dioxide 16 L (22-30) mmol/L BUN 36 H (7-17) mg/dL Glucose 133 H (65-100) mg/dL Calcium 7.5 L (8.4-10.2) mg/dL AST (5-40) units/L ALT < 5 L (7-56) units/L Ammonia (25-60) umol/L Total Creatine Kinase (30-135) units/L Albumin 2.8 L (3.9-5) g/dL Crossmatch - Imaging and Cardiology Chest x-ray: report reviewed, image reviewed Assessment and Plan 07/29/19 pancytopenia, ?septic ?source Appears hemodynamically stable at this time no localized complaints except L frontal headache Given low platelets may need to r/o bleed etc Discussed w heme continue abx etc
[2019-07-29] MEDS ORDERED: CEFEPIME/NS 2 GM/100 ML 2 GM/100 ML BAG IV SCH (14:00)
--- NOTE | 2019-07-29 14:46 | Consultation ---
History of Present Illness - Reason for Consult Consult date: 07/29/19 - History of Present Illness 78 yo F PMHx MDS, metastatic stomach cancer, T2Dm, HTN admitted to the hospital complaining of recurrent LLQ abdominal pain, which began 3 days prior to admission. She also complains of associated weakness, fever, nausea/vomiting, and diarrhea. she as recently admitted here for diverticulitis, which was treated with cefepime/Flagyl initially before being converted to levofloxacin/Flagyl, which she was sen home to compelte a 14 course of therapy with. After being discharged she got a dose of chemotherapy, however this week it was skipped due to not feeling well. Febrile to 101 and neutropenic. Currently receiving levofloxacin and metronidazole. Cultures thus far negative. Imaging personally reviewed: CTAP: sigmoid diverticulitis without abscess. Large splenomegaly Review of Systems: Bold if positive, otherwise negative General: fevers, chills, rigors HEENT: visual disturbance, diplopia, eye pain Respiratory: cough, sputum, hemoptysis, shortness of breath Cardiovascular: chest pain, syncope Gastrointestinal: nausea, vomiting, diarrhea, abdominal pain Genitourinary: dysuria, hematuria, flank pain Musculoskeletal: neck pain, back pain, joint pain, edema Neurologic: headaches, seizures Hematologic: easy bruising or bleeding Endocrine: night sweats, acute weight loss Skin: rash, jaundice, redness Psychiatric: suicidal, homicidal ideation Past History Past Medical History: other (myelodysplastic synd ) Past Surgical History: No surgical history Social history: denies: smoking, alcohol abuse Family history: hypertension Medications and Allergies Allergies Allergy/AdvReac Type Severity Reaction Status Date / Time No Known Allergies Allergy Verified 06/06/19 08:16 Home Medications Medication Instructions Recorded Confirmed Last Taken Type Acetaminophen [Acetaminophen TAB] 500 mg PO Q6HR 05/26/19 07/14/19 07/13/19 History Venlafaxine [Effexor] 75 mg PO BID 05/26/19 07/14/19 07/13/19 History Amlodipine Besylate [Norvasc] 5 mg PO DAILY #30 tablet 05/28/19 07/14/19 07/13/19 Rx HYDROcodone/APAP 5-325 [[place] 1 each PO Q6HR PRN #10 tablet 05/28/19 07/14/19 07/13/19 Rx 5-325 mg TAB] Loratadine [Claritin] 10 mg PO DAILY #30 tablet 05/28/19 07/14/19 07/13/19 Rx Metformin HCl [metFORMIN] 1,000 mg PO BID #60 tablet 05/28/19 07/14/19 07/13/19 Rx Polyethylene Glycol 3350 [Miralax 17 gm PO QDAY #30 powd.pack 05/28/19 07/14/19 07/13/19 Rx 3350] ISOSORBIDE MONOnitrate [Imdur ER] 30 mg PO QDAY #30 tablet 07/01/19 07/14/19 07/13/19 Rx levoFLOXacin [Levaquin] 750 mg PO QDAY #8 tablet 07/20/19 Unknown Rx metroNIDAZOLE [Flagyl] 500 mg PO Q8HR #24 tablet 07/20/19 Unknown Rx Active Meds: Active Medications Acetaminophen (Tylenol) 500 mg PO Q6HR [facility] Last Admin: 07/29/19 11:45 Dose: 500 mg Documented by: Acetaminophen/Hydrocodone Bitart ([place] 5/325) 1 each PO Q6HR PRN PRN Reason: PAIN Last Admin: 07/29/19 13:17 Dose: 1 each Documented by: Amlodipine Besylate (Amlodipine) 5 mg PO DAILY [facility] Last Admin: 07/29/19 10:47 Dose: Not Given Documented by: Hydromorphone HCl (Dilaudid) 0.5 mg IV Q3H PRN PRN Reason: Pain , Severe (7-10) Last Admin: 07/29/19 07:12 Dose: 0.5 mg Documented by: Cefepime HCl (Cefepime/Ns 2 Gm/100 Ml) 2 gm in 100 mls @ 200 mls/hr IV Q24H [facility]; Protocol Vancomycin HCl (Vancomycin/Ns 1 Gm/250 Ml) 1 gm in 250 mls @ 167.007 mls/hr IV Q24HR [facility] Last Admin: 07/29/19 09:18 Dose: 167.007 mls/hr Documented by: Insulin Human Lispro (Humalog) 0 unit SUB-Q ACHS [facility]; Protocol Last Admin: 07/29/19 12:58 Dose: Not Given Documented by: Isosorbide Mononitrate (Imdur) 30 mg PO QDAY [facility] Last Admin: 07/29/19 10:48 Dose: 30 mg Documented by: Polyethylene Glycol (Miralax 3350) 17 gm PO QDAY [facility] Last Admin: 07/29/19 10:46 Dose: 17 gm Documented by: Tbo-Filgrastim (Granix) 300 mcg SUB-Q DAILY [facility] Stop: 08/01/19 13:00 Last Admin: 07/29/19 13:16 Dose: 300 mcg Documented by: Venlafaxine HCl (Effexor) 75 mg PO BID [facility] Last Admin: 07/29/19 13:14 Dose: 75 mg Documented by: Physical Examination - Physical Exam Narrative exam: Constitutional: Alert, cooperative. No acute distress Head, Ears, Nose: Normocephalic, atraumatic. External ears, nose normal Eyes: Conjunctivae/corneas clear. No icterus. No ptosis. Neck: Supple, no meningeal signs Oral: dentition fair, no thrush Cardiovascular: S1, S2 normal. Respiratory: Good air entry, clear to auscultation bilaterally GI: Soft, +tender; bowel sounds normal. No peritoneal signs. Musculoskeletal: No pedal edema, no cyanosis. Skin: No rash or abscess Hem/Lymphatic: No palpable cervical or supraclavicular nodes. No lymphangitis Psych: Mood ok. Affect normal Neurological: Awake, alert, oriented. No gross abnormality - Constitutional Vitals: Vital Signs Temp Pulse Resp BP Pulse Ox 97.7 F 81 21 108/34 95 07/29/19 12:10 07/29/19 12:10 07/29/19 12:10 07/29/19 12:10 07/29/19 12:10 Temperature -Last 24 Hours Temperature 97.7 F Temperature 99.8 F Temperature 97.4 F Temperature 98.7 F Temperature 98.0 F Temperature 99.7 F Temperature 99.3 F Temperature 101.0 F Temperature 101.0 F Temperature 101.0 F Temperature 101.0 F Temperature 100.9 F Temperature 99.3 F Temperature 99.6 F Temperature 100.0 F Temperature 99.8 F Temperature 98.9 F Results - Labs CBC & Chem 7: 07/29/19 10:26 07/29/19 10:26 Labs: Abnormal lab results 07/28/19 07/29/19 07/29/19 Range/Units 13:23 10:26 10:26 WBC 0.1 L* (4.5-11.0) K/mm3 RBC 1.51 L (3.65-5.03) M/mm3 Hgb 4.6 L* (10.1-14.3) gm/dl Hct 13.3 L* (30.3-42.9) % MCHC 35 H (30-34) % RDW 16.9 H (13.2-15.2) % Plt Count 13 L* (140-440) K/mm3 Seg Neuts % (Manual) 5.7 L (40.0-70.0) % Lymphocytes % (Manual) 91.4 H (13.4-35.0) % Seg Neutrophils # Man 0.0 L (1.8-7.7) K/mm3 Lymphocytes # (Manual) 0.1 L (1.2-5.4) K/mm3 Chloride 111.2 H (98-107) mmol/L Carbon Dioxide 16 L (22-30) mmol/L BUN 36 H (7-17) mg/dL Glucose 133 H (65-100) mg/dL Calcium 7.5 L (8.4-10.2) mg/dL ALT < 5 L (7-56) units/L Albumin 2.8 L (3.9-5) g/dL Crossmatch See Detail Assessment and Plan Cultures: 07/28/19 blood culture: NGTD 07/28/19 urine culture: NGTD A/P: 78 yo F PMHx MDS, metastatic stomach cancer, T2Dm, HTN admitted with recurrent diverticulitis. 1. Acute sepsis - present with fevers and neutropenia. Secondary to diverticulitis. 2. Acute sigmoid diverticulitis - Recurrent from a couple weeks ago. Agree with cefepime and metronidazole for now. Recommend surgical consult; may not be candidate for resection due to comorbidities. 3. 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 MD Sundar [facility] ([facility]) M: [phone] O: [phone] F: [phone] [facility] ([facility]) M: [phone] O: [phone] F: [phone]
[2019-07-29] MEDS: CEFEPIME/NS 2 GM/100 ML 2 GM/100 ML BAG IV SCH (15:00)
--- NOTE | 2019-07-29 16:34 | Consultation ---
History of Present Illness Consult date: 07/29/19 Chief complaint: pain - History of present illness History of present illness: 78 yo F with hx of myelodysplastic syndrome presented to ER with c/o frontal headache. Patient states she did have LLQ abdominal pain several weeks ago which has resolved. General surgery consulted for diverticulitis on CT scan. The patient states that when she had the LLQ abdominal pain it was sharp and constant. It was severe and prevented her from standing up straight. She states now she is pain free. She is tolerating a diet without n/v. No diarrhea, constipation, hemotochezia, or melena. Past History Past Medical History: other (myelodysplastic synd ) Past Surgical History: No surgical history Social history: denies: smoking, alcohol abuse Family history: hypertension Medications and Allergies Allergies Allergy/AdvReac Type Severity Reaction Status Date / Time No Known Allergies Allergy Verified 06/06/19 08:16 Home Medications Medication Instructions Recorded Confirmed Last Taken Type Acetaminophen [Acetaminophen TAB] 500 mg PO Q6HR 05/26/19 07/14/19 07/13/19 History Venlafaxine [Effexor] 75 mg PO BID 05/26/19 07/14/19 07/13/19 History Amlodipine Besylate [Norvasc] 5 mg PO DAILY #30 tablet 05/28/19 07/14/19 07/13/19 Rx HYDROcodone/APAP 5-325 [[place] 1 each PO Q6HR PRN #10 tablet 05/28/19 07/14/19 07/13/19 Rx 5-325 mg TAB] Loratadine [Claritin] 10 mg PO DAILY #30 tablet 05/28/19 07/14/19 07/13/19 Rx Metformin HCl [metFORMIN] 1,000 mg PO BID #60 tablet 05/28/19 07/14/19 07/13/19 Rx Polyethylene Glycol 3350 [Miralax 17 gm PO QDAY #30 powd.pack 05/28/19 07/14/19 07/13/19 Rx 3350] ISOSORBIDE MONOnitrate [Imdur ER] 30 mg PO QDAY #30 tablet 07/01/19 07/14/19 07/13/19 Rx levoFLOXacin [Levaquin] 750 mg PO QDAY #8 tablet 07/20/19 Unknown Rx metroNIDAZOLE [Flagyl] 500 mg PO Q8HR #24 tablet 07/20/19 Unknown Rx Active Meds: Active Medications Acetaminophen (Tylenol) 500 mg PO Q6HR [facility] Last Admin: 07/29/19 11:45 Dose: 500 mg Documented by: Acetaminophen/Hydrocodone Bitart ([place] 5/325) 1 each PO Q6HR PRN PRN Reason: PAIN Last Admin: 07/29/19 13:17 Dose: 1 each Documented by: Amlodipine Besylate (Amlodipine) 5 mg PO DAILY [facility] Last Admin: 07/29/19 10:47 Dose: Not Given Documented by: Hydromorphone HCl (Dilaudid) 0.5 mg IV Q3H PRN PRN Reason: Pain , Severe (7-10) Last Admin: 07/29/19 07:12 Dose: 0.5 mg Documented by: Vancomycin HCl (Vancomycin/Ns 1 Gm/250 Ml) 1 gm in 250 mls @ 167.007 mls/hr IV Q24HR [facility] Last Admin: 07/29/19 09:18 Dose: 167.007 mls/hr Documented by: Cefepime HCl (Cefepime/Ns 2 Gm/100 Ml) 2 gm in 100 mls @ 200 mls/hr IV Q12H [facility]; Protocol Last Admin: 07/29/19 15:00 Dose: 200 mls/hr Documented by: Insulin Human Lispro (Humalog) 0 unit SUB-Q ACHS [facility]; Protocol Last Admin: 07/29/19 16:00 Dose: Not Given Documented by: Isosorbide Mononitrate (Imdur) 30 mg PO QDAY [facility] Last Admin: 07/29/19 10:48 Dose: 30 mg Documented by: Polyethylene Glycol (Miralax 3350) 17 gm PO QDAY [facility] Last Admin: 07/29/19 10:46 Dose: 17 gm Documented by: Tbo-Filgrastim (Granix) 300 mcg SUB-Q DAILY [facility] Stop: 08/01/19 13:00 Last Admin: 07/29/19 13:16 Dose: 300 mcg Documented by: Venlafaxine HCl (Effexor) 75 mg PO BID [facility] Last Admin: 07/29/19 13:14 Dose: 75 mg Documented by: Review of Systems All systems: negative (10 pt ROS performed and negative except for that listed in HPI) Exam Vital Signs Temp Pulse Resp BP Pulse Ox 99.5 F 71 20 97/26 98 07/28/19 11:20 07/28/19 11:20 07/28/19 11:20 07/28/19 11:20 07/28/19 11:20 Narrative exam: Gen; AAOx3. NAD ENT: no scleral icterus. + conjunctival pallor CV: s1, S2+ resp: even and unlabored Abd: soft, NT, ND Ext: no c/c/e Results - Labs 07/29/19 10:26 07/29/19 10:26 Abnormal lab results 07/28/19 07/29/19 07/29/19 Range/Units 13:23 10:26 10:26 WBC 0.1 L* (4.5-11.0) K/mm3 RBC 1.51 L (3.65-5.03) M/mm3 Hgb 4.6 L* (10.1-14.3) gm/dl Hct 13.3 L* (30.3-42.9) % MCHC 35 H (30-34) % RDW 16.9 H (13.2-15.2) % Plt Count 13 L* (140-440) K/mm3 Seg Neuts % (Manual) 5.7 L (40.0-70.0) % Lymphocytes % (Manual) 91.4 H (13.4-35.0) % Seg Neutrophils # Man 0.0 L (1.8-7.7) K/mm3 Lymphocytes # (Manual) 0.1 L (1.2-5.4) K/mm3 Chloride 111.2 H (98-107) mmol/L Carbon Dioxide 16 L (22-30) mmol/L BUN 36 H (7-17) mg/dL Glucose 133 H (65-100) mg/dL Calcium 7.5 L (8.4-10.2) mg/dL ALT < 5 L (7-56) units/L Albumin 2.8 L (3.9-5) g/dL Crossmatch See Detail Diabetes panel 07/29/19 Range/Units 10:26 Sodium 137 (137-145) mmol/L Potassium 4.1 (3.6-5.0) mmol/L Chloride 111.2 H (98-107) mmol/L Carbon Dioxide 16 L (22-30) mmol/L BUN 36 H (7-17) mg/dL Creatinine 0.8 (0.7-1.2) mg/dL Glucose 133 H (65-100) mg/dL Calcium 7.5 L (8.4-10.2) mg/dL AST 9 (5-40) units/L ALT < 5 L (7-56) units/L Alkaline Phosphatase 39 (35-129) units/L Total Protein 6.3 (6.3-8.2) g/dL Albumin 2.8 L (3.9-5) g/dL Calcium panel 07/29/19 Range/Units 10:26 Calcium 7.5 L (8.4-10.2) mg/dL Albumin 2.8 L (3.9-5) g/dL Pituitary panel 07/29/19 Range/Units 10:26 Sodium 137 (137-145) mmol/L Potassium 4.1 (3.6-5.0) mmol/L Chloride 111.2 H (98-107) mmol/L Carbon Dioxide 16 L (22-30) mmol/L BUN 36 H (7-17) mg/dL Creatinine 0.8 (0.7-1.2) mg/dL Glucose 133 H (65-100) mg/dL Calcium 7.5 L (8.4-10.2) mg/dL Adrenal panel 07/29/19 Range/Units 10:26 Sodium 137 (137-145) mmol/L Potassium 4.1 (3.6-5.0) mmol/L Chloride 111.2 H (98-107) mmol/L Carbon Dioxide 16 L (22-30) mmol/L BUN 36 H (7-17) mg/dL Creatinine 0.8 (0.7-1.2) mg/dL Glucose 133 H (65-100) mg/dL Calcium 7.5 L (8.4-10.2) mg/dL Total Bilirubin 0.70 (0.1-1.2) mg/dL AST 9 (5-40) units/L ALT < 5 L (7-56) units/L Alkaline Phosphatase 39 (35-129) units/L Total Protein 6.3 (6.3-8.2) g/dL Albumin 2.8 L (3.9-5) g/dL - Imaging CT scan - abdomen: report reviewed, image reviewed CT scan - pelvis: report reviewed, image reviewed Assessment and Plan 78 yo F with mild sigmoid diverticuliltis, uncomplicated Patient is now asymptomatic and very mild inflammation seen on CT. Plan: 1. may transition to oral antibiotics on dc 2. advance diet as tolerated 3. GI follow up as outpatient for colonoscopy 4. treatment for pancytopenia per hematology and primary service Will s/o. No surgical intervention at this time. Thank you, please call with questions
--- NOTE | 2019-07-29 18:55 | Cat Scan Report ---
CT BRAIN: 07/29/2019 INDICATION / CLINICAL INFORMATION: headache low plts r/o bleed. COMPARISON: 07/17/2019 FINDINGS: BRAIN/INTRACRANIAL STRUCTURES: Unenhanced CT images of the brain demonstrate no evidence of acute int racranial abnormality. Ventricles and sulci are prominent in size, consistent with age-related atrophic change. There is no evidence of ischemic injury, hemorrhage, or mass. There are no abnormal extra-axial fluid collections. There is been no change when compared to the prior exam. EXTRACRANIAL STRUCTURES: Unremarkable. IMPRESSION: No acute abnormality. All CT scans at this location are performed using dose reduction to ALARA by means of automated expos ure control. Signer Name: Troy Nguyen MD Signed: 07/29/2019 6:51 PM Workstation Name: [id number]
[2019-07-30] MEDS: ACETAMINOPHEN 500 MG TAB PO SCH ×4 (00:13→18:32)
[2019-07-30] MEDS: CEFEPIME/NS 2 GM/100 ML 2 GM/100 ML BAG IV SCH ×2 (03:25→21:42)
[2019-07-30] MEDS: HYDROmorphone 1 MG/1 ML INJ IV PRN (03:31)
[2019-07-30 06:16] LABS: BUN/Creatinine Ratio 43; Blood Urea Nitrogen 30 mg/dL (7-17); Hemolysis Index 1; Mean Corpuscular HGB Conc 34 % (30-34); Mean Corpuscular Volume 89 fl (79-97); Red Cell Distribution Width 16.6 % (13.2-15.2)
[2019-07-30 06:26] LABS: Hemoglobin 5.4 gm/dl (10.1-14.3); Platelet Count 9 K/mm3 (140-440)
[2019-07-30] MEDS: INSULIN LISPRO 100 UNIT/ML SUB-Q SCH ×4 (07:30→21:58)
[2019-07-30] MEDS: HYDROcodone/ACETAMINOPHEN 5-325 MG TAB PO PRN ×2 (08:45→20:16)
[2019-07-30] MEDS: metroNIDAZOLE/NS 500 MG/100 ML 500 MG/100 ML BAG IV SCH ×3 (08:46→21:40)
[2019-07-30 08:49] LABS: Basophils % (Manual) 0 % (0.0-1.8); Eosinophils % (Manual) 0 % (0.0-4.3); Monocytes % (Manual) 0 % (0.0-7.3); Total Cells Counted 10
[2019-07-30 08:50] LABS: Anisocytosis 1+; Hypochromasia 3+; Large Platelets Rare; Platelet Estimate Consistent w Auto; Target Cells Few
--- NOTE | 2019-07-30 09:12 | Progress Note ---
Assessment and Plan Assessment and plan: --Pancytopenia; secondary to myelodysplastic syndrome Total 3 PRBC 2 unit platelets transfused , neutropenia precautions Continue Filgastrin per hemat, Transfuse 1 more unit PRBC , closely monitor Management per hematology oncology --Sigmoid diverticulitis; continue antibiotics Surgical evaluation noted and appreciated Started clear liquids, recommend outpatient colonoscopy Transition to oral antibiotics upon discharge --Sepsis; secondary to sigmoid diverticulitis Follow cultures, antibiotics, ID following --Myelodysplastic syndrome; management per hematology --Hypertension; moderate control, antihypertensives and PRN medications, --Diabetes mellitus; Accu-Chek SSC and ADA diet,Insulin as needed --Moderate malnutrition and hypoalbuminemia; nutrition supplements and supportive care --DVT prophylaxis; SCDs No pharmacologic anticoagulation in view of pancytopenia --Full code Patient is critically ill very poor prognosis FK reviewed with the patient and the family members at the bedside I also discussed with patient's nurse Critical care time 32 minutes History Interval history: Patient seen and examined medical records reviewed Patient received total of 3 units of PRBC and 2 units of platelets Remains pancytopenic, no external evidence of bleeding Patient complains of generalized weakness Vital signs noted Hospitalist Physical - Constitutional Vitals: Temp Pulse Resp BP Pulse Ox 99.4 F 73 17 103/33 95 07/30/19 04:00 07/30/19 07:01 07/30/19 07:01 07/30/19 07:01 07/30/19 07:01 General appearance: Present: no acute distress, cachectic, disheveled, other (chronically ill-looking) - EENT Eyes: Present: PERRL, EOM intact - Neck Neck: Present: supple, normal ROM - Respiratory Respiratory effort: normal Respiratory: bilateral: diminished, rhonchi, negative: rales, wheezing - Cardiovascular Rhythm: regular Heart Sounds: Present: S1 & S2 - Extremities Extremities: no ischemia, No edema - Abdominal General gastrointestinal: soft, non-tender, non-distended, normal bowel sounds - Integumentary Integumentary: Present: clear, warm - Psychiatric Psychiatric: appropriate mood/affect, cooperative - Neurologic Neurologic: moves all extremities Results - Labs CBC & Chem 7: 07/30/19 04:18 07/30/19 04:18 Labs: Laboratory Last Values WBC 0.1 K/mm3 (4.5-11.0) L* 07/30/19 04:18 RBC 1.80 M/mm3 (3.65-5.03) L 07/30/19 04:18 Hgb 5.4 gm/dl (10.1-14.3) L* 07/30/19 04:18 Hct 16.0 % (30.3-42.9) L* 07/30/19 04:18 MCV 89 fl (79-97) 07/30/19 04:18 MCH 30 pg (28-32) 07/30/19 04:18 MCHC 34 % (30-34) 07/30/19 04:18 RDW 16.6 % (13.2-15.2) H 07/30/19 04:18 Plt Count 9 K/mm3 (140-440) L* 07/30/19 04:18 Lymph % (Auto) Switchgear Repairer 07/30/19 04:18 Add Manual Diff Complete 07/30/19 04:18 Total Counted 10 07/30/19 04:18 Seg Neutrophils % Switchgear Repairer 07/30/19 04:18 Seg Neuts % (Manual) 0 % (40.0-70.0) L 07/30/19 04:18 Band Neutrophils % 0 % 07/30/19 04:18 Lymphocytes % (Manual) 100.0 % (13.4-35.0) H 07/30/19 04:18 Reactive Lymphs % (Man) 0 % 07/30/19 04:18 Monocytes % (Manual) 0 % (0.0-7.3) 07/30/19 04:18 Eosinophils % (Manual) 0 % (0.0-4.3) 07/30/19 04:18 Basophils % (Manual) 0 % (0.0-1.8) 07/30/19 04:18 Metamyelocytes % 0 % 07/30/19 04:18 Myelocytes % 0 % 07/30/19 04:18 Promyelocytes % 0 % 07/30/19 04:18 Blast Cells % 0 % 07/30/19 04:18 Nucleated RBC % Not Reportable 07/30/19 04:18 Seg Neutrophils # Man 0.0 K/mm3 (1.8-7.7) L 07/30/19 04:18 Band Neutrophils # 0.0 K/mm3 07/30/19 04:18 Lymphocytes # (Manual) 0.1 K/mm3 (1.2-5.4) L 07/30/19 04:18 Abs React Lymphs (Man) 0.0 K/mm3 07/30/19 04:18 Monocytes # (Manual) 0.0 K/mm3 (0.0-0.8) 07/30/19 04:18 Eosinophils # (Manual) 0.0 K/mm3 (0.0-0.4) 07/30/19 04:18 Basophils # (Manual) 0.0 K/mm3 (0.0-0.1) 07/30/19 04:18 Metamyelocytes # 0.0 K/mm3 07/30/19 04:18 Myelocytes # 0.0 K/mm3 07/30/19 04:18 Promyelocytes # 0.0 K/mm3 07/30/19 04:18 Blast Cells # 0.0 K/mm3 07/30/19 04:18 WBC Morphology Not Reportable 07/30/19 04:18 Hypersegmented Neuts Not Reportable 07/30/19 04:18 Hyposegmented Neuts Not Reportable 07/30/19 04:18 Hypogranular Neuts Not Reportable 07/30/19 04:18 Smudge Cells Not Reportable 07/30/19 04:18 Toxic Granulation Not Reportable 07/30/19 04:18 Toxic Vacuolation Not Reportable 07/30/19 04:18 Dohle Bodies Not Reportable 07/30/19 04:18 Pelger-Huet Anomaly Not Reportable 07/30/19 04:18 Pao Rods Not Reportable 07/30/19 04:18 Platelet Estimate Consistent w auto 07/30/19 04:18 Clumped Platelets Not Reportable 07/30/19 04:18 Plt Clumps, EDTA Not Reportable 07/30/19 04:18 Large Platelets Rare 07/30/19 04:18 Giant Platelets Not Reportable 07/30/19 04:18 Platelet Satelliting Not Reportable 07/30/19 04:18 Plt Morphology Comment Not Reportable 07/30/19 04:18 RBC Morphology Not Reportable 07/30/19 04:18 Dimorphic RBCs Not Reportable 07/30/19 04:18 Polychromasia Not Reportable 07/30/19 04:18 Hypochromasia 3+ 07/30/19 04:18 Poikilocytosis Not Reportable 07/30/19 04:18 Anisocytosis 1+ 07/30/19 04:18 Microcytosis Not Reportable 07/30/19 04:18 Macrocytosis Not Reportable 07/30/19 04:18 Spherocytes Not Reportable 07/30/19 04:18 Pappenheimer Bodies Not Reportable 07/30/19 04:18 Sickle Cells Not Reportable 07/30/19 04:18 Target Cells Few 07/30/19 04:18 Tear Drop Cells Not Reportable 07/30/19 04:18 Ovalocytes Not Reportable 07/30/19 04:18 Helmet Cells Not Reportable 07/30/19 04:18 [place] Bodies Not Reportable 07/30/19 04:18 [place] Rings Not Reportable 07/30/19 04:18 Manuel Cells Not Reportable 07/30/19 04:18 Bite Cells Not Reportable 07/30/19 04:18 Crenated Cell Not Reportable 07/30/19 04:18 Elliptocytes Not Reportable 07/30/19 04:18 Acanthocytes (Spur) Not Reportable 07/30/19 04:18 Rouleaux Not Reportable 07/30/19 04:18 Hemoglobin C Crystals Not Reportable 07/30/19 04:18 Schistocytes Not Reportable 07/30/19 04:18 Malaria parasites Not Reportable 07/30/19 04:18 Chung Bodies Not Reportable 07/30/19 04:18 Hem Pathologist Commnt No 07/30/19 04:18 Sodium 139 mmol/L (137-145) 07/30/19 04:18 Potassium 4.1 mmol/L (3.6-5.0) 07/30/19 04:18 Chloride 109.9 mmol/L (98-107) H 07/30/19 04:18 Carbon Dioxide 16 mmol/L (22-30) L 07/30/19 04:18 Anion Gap 17 mmol/L 07/30/19 04:18 BUN 30 mg/dL (7-17) H 07/30/19 04:18 Creatinine 0.7 mg/dL (0.7-1.2) 07/30/19 04:18 Estimated GFR > 60 ml/min 07/30/19 04:18 BUN/Creatinine Ratio 43 % 07/30/19 04:18 Glucose 129 mg/dL (65-100) H 07/30/19 04:18 POC Glucose 147 (70-105) H 07/29/19 21:14 Lactic Acid 1.80 mmol/L (0.7-2.0) 07/28/19 15:16 Calcium 8.0 mg/dL (8.4-10.2) L 07/30/19 04:18 Phosphorus 2.40 mg/dL (2.5-4.5) L 07/30/19 04:18 Magnesium 2.10 mg/dL (1.7-2.3) 07/30/19 04:18 Total Bilirubin 0.70 mg/dL (0.1-1.2) 07/29/19 10:26 AST 9 units/L (5-40) 07/29/19 10:26 ALT < 5 units/L (7-56) L 07/29/19 10:26 Alkaline Phosphatase 39 units/L (35-129) 07/29/19 10:26 Ammonia 21.0 umol/L (25-60) L 07/28/19 13:15 Total Creatine Kinase < 7 units/L (30-135) L 07/28/19 13:15 CK-MB (CK-2) < 1.0 ng/mL (0.0-4.0) 07/28/19 13:15 CK-MB (CK-2) Rel Index 0.0 (0-4) 07/28/19 13:15 Troponin T < 0.010 ng/mL (0.00-0.029) 07/28/19 13:15 Total Protein 6.3 g/dL (6.3-8.2) 07/29/19 10:26 Albumin 2.8 g/dL (3.9-5) L 07/29/19 10:26 Albumin/Globulin Ratio 0.8 % 07/29/19 10:26 Urine Color Vanessa (Yellow) 07/28/19 Unknown Urine Turbidity Clear (Clear) 07/28/19 Unknown Urine pH 5.0 (5.0-7.0) 07/28/19 Unknown Ur Specific [place] 1.019 (1.003-1.030) 07/28/19 Unknown Urine Protein <15 mg/dl mg/dL (Negative) 07/28/19 Unknown Urine Glucose (UA) Neg mg/dL (Negative) 07/28/19 Unknown Urine Ketones Neg mg/dL (Negative) 07/28/19 Unknown Urine Blood Neg (Negative) 07/28/19 Unknown Urine Nitrite Neg (Negative) 07/28/19 Unknown Urine Bilirubin Neg (Negative) 07/28/19 Unknown Urine Urobilinogen < 2.0 mg/dL (<2.0) 07/28/19 Unknown Ur Leukocyte Esterase Neg (Negative) 07/28/19 Unknown Urine WBC (Auto) < 1.0 /HPF (0.0-6.0) 07/28/19 Unknown Urine RBC (Auto) < 1.0 /HPF (0.0-6.0) 07/28/19 Unknown U Epithel Cells (Auto) 1.0 /HPF (0-13.0) 07/28/19 Unknown Urine Mucus Few /HPF 07/28/19 Unknown Blood Type O POSITIVE 07/28/19 13:23 Antibody Screen Negative 07/28/19 13:23 Crossmatch See Detail 07/28/19 13:23 Active Medications - Current Medications Current Medications: Generic Name Dose Route Start Last Admin Trade Name Freq PRN Reason Stop Dose Admin Acetaminophen 500 mg 07/29/19 12:00 07/30/19 05:25 Tylenol PO 500 mg Q6HR XOCHITL Administration Acetaminophen/Hydrocodone Bitart 1 each 07/29/19 08:06 07/30/19 08:45 [place] 5/325 PO 1 each Q6HR PRN Administration PAIN Amlodipine Besylate 5 mg 07/29/19 10:00 07/29/19 10:47 Amlodipine PO Not Given DAILY [facility] Hydromorphone HCl 0.5 mg 07/28/19 18:10 07/30/19 03:31 Dilaudid IV 0.5 mg Q3H PRN Administration Pain , Severe (7-10) Cefepime HCl 2 gm in 100 mls @ 200 mls/hr 07/29/19 15:00 07/30/19 03:25 Cefepime/Ns 2 Gm/100 Ml IV 200 mls/hr Q12H XOCHITL Administration Protocol Metronidazole 500 mg in 100 mls @ 100 mls/hr 07/30/19 08:00 07/30/19 08:46 Flagyl 500 Mg/100 Ml IV 100 mls/hr Q8HR XOCHITL Administration Insulin Human Lispro 0 unit 07/29/19 07:30 07/30/19 07:30 Humalog SUB-Q Not Given ACHS [facility] Protocol Isosorbide Mononitrate 30 mg 07/29/19 10:00 07/29/19 10:48 Imdur PO 30 mg QDAY XOCHITL Administration Polyethylene Glycol 17 gm 07/29/19 10:00 07/29/19 10:46 Miralax 3350 PO 17 gm QDAY XOCHITL Administration Potassium Phos/Sodium Phos 1 each 07/30/19 09:03 Phos-Nak PO 07/30/19 09:04 ONCE ONE Tbo-Filgrastim 300 mcg 07/29/19 12:00 07/29/19 13:16 Granix SUB-Q 08/01/19 13:00 300 mcg DAILY XOCHITL Administration Venlafaxine HCl 75 mg 07/29/19 10:00 07/29/19 22:22 Effexor PO 75 mg BID XOCHITL Administration Nutrition/Malnutrition Assess - Dietary Evaluation Nutrition/Malnutrition Findings: Nutrition Notes Start: 07/29/19 12:39 Freq: Status: Active Protocol: Document 07/29/19 12:39 RM (Rec: 07/29/19 12:57 RM [id number]) Nutrition Notes Need for Assessment generated from: MST Initial or Follow up Assessment Current Diagnosis Diabetes,Hypertension Other Pertinent Diagnosis Myelodysplastic syndrome, Hx bone CA, Sigmoid diverticulitis Current Diet Clear liquid Labs/Tests Reviewed Pertinent Medications Reviewed Height 5 ft 2 in Weight 53.7 kg Usual Body Weight 60 kg [place] Body Weight (kg) 50.00 BMI 21.6 Weight change and time frame 10.5% wt loss X 4 months Subjective/Other Information Screened for malnutrition. 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 Stated that her appetite is okay currently. Noted breakfast at bedside w/juice and broth drunk but jello uneaten. Pt stated that she plans to eat the jello. Pt agreed to trial of Ensure Clear. Denied N/V. Admitted to diarrhea. Stated UBW was 132 lbs 4 months ago. Noted slight temporal wasting. Burn Absent Trauma Absent Minimum of two criteria Yes Energy Intake (non-severe) <75% Estimated Energy Requirement >7 days Interpretation of Weight Loss (severe) >10% in 6 months Muscle Mass Mild Depletion (non-severe) #2 Nutrition Diagnosis Underweight Comments: for older adult Etiology decreased appetite As Evidenced by Signs and Symptoms pt BMI < 22 #1 Nutrition Diagnosis Malnutrition Etiology decreased appetite As Evidenced by Signs and Symptoms 10.5% wt loss X 4 months, temporal wasting, pt statement that LUBRICATOR GRANULATOR she ate bites of food X 2 weeks Is patient on ventilator? No Is Patient Ambulatory and/or Out of Bed No REE-([facility]-confined to bed) 1171.140 Kcal/Kg value to use for calculation 31 Approximate Energy Requirements Using 1665 kcal/Kg Calculation Used for Recommendations Kcal/kg Additional Notes Protein Needs: 64-81g (1.2-1. 5g/kg) Fluid Needs: 1 ml/kcal Nutrition Intervention Change Diet Order: Advance diet when medically able Add Supplement/Snack (indicate name/kcal Ensure Clear 1 daily /protein ) Provides kCal: 240 Provides Protein (gm) 8 Goal #1 Advance diet when medically able Anticipated Discharge Needs: Unable to determine at this time Follow-Up By: 08/01/19 Additional Comments Follow for PO and ONS intakes
[2019-07-30] MEDS ORDERED: PHOS-NAK POWDER PACKET PO ONE (10:00)
[2019-07-30] MEDS ORDERED: HYDROcodone/ACETAMINOPHEN 5-325 MG TAB PO ONE (12:08)
[2019-07-30] MEDS: POLYETHYLENE GLYCOL 3350 17 GM POWDER PO SCH (12:17)
[2019-07-30] MEDS: VENLAFAXINE 75 MG TAB PO SCH ×2 (12:19→21:40)
[2019-07-30] MEDS: amLODIPine 5 MG TAB PO SCH (12:19)
[2019-07-30] MEDS: TBO-FILGRASTIM 300 MCG/0.5 ML SUB-Q SCH (12:46)
[2019-07-30] MEDS ORDERED: SODIUM CHLORIDE 0.9% 500 ML 500 ML ONE (13:30)
--- NOTE | 2019-07-30 16:42 | Progress Note ---
Assessment and Plan Cultures: 07/28/19 blood culture: NGTD 07/28/19 urine culture: NGTD A/P: 78 yo F PMHx MDS, metastatic stomach cancer, T2Dm, HTN admitted with recurrent diverticulitis. 1. Acute sepsis - present with fevers and neutropenia. Secondary to diverticulitis. 2. Acute sigmoid diverticulitis - Recurrent from a couple weeks ago. Agree with cefepime and metronidazole for now. Recommend surgical consult; may not be candidate for resection due to comorbidities. 3. 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 Dr. Crook taking over tomorrow. Capo Jackson MD [facility] ([facility]) M: [phone] O: [phone] F: [phone] [facility] ([facility]) M: [phone] O: [phone] F: [phone] Subjective Date of service: 07/30/19 Interval history: ongoing abdominal pain. Afebrile, remains neutropenic. Objective - Exam Narrative Exam: Constitutional: Alert, cooperative. No acute distress Head, Ears, Nose: Normocephalic, atraumatic. External ears, nose normal Eyes: Conjunctivae/corneas clear. No icterus. No ptosis. Neck: Supple, no meningeal signs Oral: dentition fair, no thrush Cardiovascular: S1, S2 normal. Respiratory: Good air entry, clear to auscultation bilaterally GI: Soft, +tender; bowel sounds normal. No peritoneal signs. Musculoskeletal: No pedal edema, no cyanosis. Skin: No rash or abscess Hem/Lymphatic: No palpable cervical or supraclavicular nodes. No lymphangitis Psych: Mood ok. Affect normal Neurological: Awake, alert, oriented. No gross abnormality - Constitutional Vitals: Vital Signs Temp Pulse Resp BP Pulse Ox 97.3 F L 90 23 127/43 97 07/30/19 13:47 07/30/19 13:47 07/30/19 13:47 07/30/19 13:47 07/30/19 13:47 Temperature -Last 24 Hours Temperature 97.3 F Temperature 97.3 F Temperature 97.0 F Temperature 97.4 F Temperature 98.4 F Temperature 98.4 F Temperature 99.4 F Temperature 99.4 F Temperature 99.1 F Temperature 99.1 F Temperature 98.4 F Temperature 98.4 F Temperature 98.8 F Temperature 98.0 F - Labs CBC & Chem 7: 07/30/19 04:18 07/30/19 04:18 Labs: Abnormal lab results 07/28/19 07/29/19 07/29/19 Range/Units 13:23 10:50 15:59 WBC (4.5-11.0) K/mm3 RBC (3.65-5.03) M/mm3 Hgb (10.1-14.3) gm/dl Hct (30.3-42.9) % RDW (13.2-15.2) % Plt Count (140-440) K/mm3 Seg Neuts % (Manual) (40.0-70.0) % Lymphocytes % (Manual) (13.4-35.0) % Seg Neutrophils # Man (1.8-7.7) K/mm3 Lymphocytes # (Manual) (1.2-5.4) K/mm3 Chloride (98-107) mmol/L Carbon Dioxide (22-30) mmol/L BUN (7-17) mg/dL Glucose (65-100) mg/dL POC Glucose 136 H 149 H (70-105) Calcium (8.4-10.2) mg/dL Phosphorus (2.5-4.5) mg/dL Crossmatch See Detail 07/29/19 07/30/19 07/30/19 Range/Units 21:14 04:18 04:18 WBC 0.1 L* (4.5-11.0) K/mm3 RBC 1.80 L (3.65-5.03) M/mm3 Hgb 5.4 L* (10.1-14.3) gm/dl Hct 16.0 L* (30.3-42.9) % RDW 16.6 H (13.2-15.2) % Plt Count 9 L* (140-440) K/mm3 Seg Neuts % (Manual) 0 L (40.0-70.0) % Lymphocytes % (Manual) 100.0 H (13.4-35.0) % Seg Neutrophils # Man 0.0 L (1.8-7.7) K/mm3 Lymphocytes # (Manual) 0.1 L (1.2-5.4) K/mm3 Chloride 109.9 H (98-107) mmol/L Carbon Dioxide 16 L (22-30) mmol/L BUN 30 H (7-17) mg/dL Glucose 129 H (65-100) mg/dL POC Glucose 147 H (70-105) Calcium 8.0 L (8.4-10.2) mg/dL Phosphorus 2.40 L (2.5-4.5) mg/dL Crossmatch 07/30/19 07/30/19 Range/Units 07:58 11:38 WBC (4.5-11.0) K/mm3 RBC (3.65-5.03) M/mm3 Hgb (10.1-14.3) gm/dl Hct (30.3-42.9) % RDW (13.2-15.2) % Plt Count (140-440) K/mm3 Seg Neuts % (Manual) (40.0-70.0) % Lymphocytes % (Manual) (13.4-35.0) % Seg Neutrophils # Man (1.8-7.7) K/mm3 Lymphocytes # (Manual) (1.2-5.4) K/mm3 Chloride (98-107) mmol/L Carbon Dioxide (22-30) mmol/L BUN (7-17) mg/dL Glucose (65-100) mg/dL POC Glucose 132 H 214 H (70-105) Calcium (8.4-10.2) mg/dL Phosphorus (2.5-4.5) mg/dL Crossmatch
[2019-07-31] MEDS: ACETAMINOPHEN 500 MG TAB PO SCH ×4 (01:29→17:28)
[2019-07-31] MEDS: metroNIDAZOLE/NS 500 MG/100 ML 500 MG/100 ML BAG IV SCH ×3 (05:21→21:50)
[2019-07-31 06:06] LABS: Mean Corpuscular HGB Conc 35 % (30-34); Mean Corpuscular Volume 89 fl (79-97); Red Cell Distribution Width 16.4 % (13.2-15.2)
[2019-07-31 06:17] LABS: BUN/Creatinine Ratio 36; Blood Urea Nitrogen 25 mg/dL (7-17); Calcium 8.2 mg/dL (8.4-10.2); Hemolysis Index 3
[2019-07-31 06:38] LABS: Hematocrit 15.9 % (30.3-42.9); Hemoglobin 5.5 gm/dl (10.1-14.3); Platelet Count 6 K/mm3 (140-440)
[2019-07-31] MEDS ORDERED: SODIUM CHLORIDE 0.9% 500 ML 500 ML IV ONE ×2 (07:02→08:46)
--- NOTE | 2019-07-31 07:09 | Event Note ---
RN called to notify of critical hgb of 5.5. 1 unit prbc ordered for now.
[2019-07-31] MEDS: INSULIN LISPRO 100 UNIT/ML SUB-Q SCH ×4 (09:03→21:56)
[2019-07-31 10:27] LABS: Basophils % (Manual) 0 % (0.0-1.8); Hypochromasia 3+; Monocytes % (Manual) 0 % (0.0-7.3); Total Cells Counted 100
[2019-07-31 10:29] LABS: Platelet Estimate Consistent w Auto
[2019-07-31] MEDS: POLYETHYLENE GLYCOL 3350 17 GM POWDER PO SCH (11:03)
[2019-07-31] MEDS: VENLAFAXINE 75 MG TAB PO SCH ×2 (11:03→21:47)
[2019-07-31] MEDS: amLODIPine 5 MG TAB PO SCH (11:04)
[2019-07-31] MEDS: TBO-FILGRASTIM 300 MCG/0.5 ML SUB-Q SCH (12:15)
[2019-07-31] MEDS: CEFEPIME/NS 2 GM/100 ML 2 GM/100 ML BAG IV SCH ×2 (12:18→22:12)
--- NOTE | 2019-07-31 12:46 | Hem/Onc Progress Note ---
Assessment and Plan 1. Anemia, leukopenia, thrombocytopenia, severe. Transfusion support as needed. In spite of transfusion, the patient's counts have not been improving. There was a plan for a bone marrow biopsy. This could not be done as an inpatient status, so I was planning to do as an outpatient; however, she did not keep her appointment. She is on reverse isolation. I am not sure what the long-term plan will be, which will help the patient. She has had received chemotherapy for her myelodysplastic syndrome, it does not appear to be doing any good. I am not sure if she will be a candidate for bone marrow transplant evaluation with such severe cytopenia. Last bone marrow biopsy was done in this year of March, which showed 90% to 100% cellularity with myelodysplastic syndrome. 2. History of splenomegaly with spleen lesions. 3. History of methicillin-resistant Staphylococcus aureus. 4. History of diabetes. 5. History of hypertension. I will follow the patient during inpatient stay. D/W ELDEST DAUGHTER - reg pt - poor prognosis - need for repeat BMBx as IP or OP - [facility] referral as OP pt has had 3 sessions of chemo - with not much response - 4 sessions of chemo are advised - but pt has sever cytopenias - Patient Problems (1) Myelodysplastic syndrome Current Visit: No Status: Chronic Subjective Date of service: 07/31/19 Principal diagnosis: MDS - cytopenia Interval history: no bleeding Objective - Exam Narrative Exam: Pain - none General appearance - on o2 Performance status - limited self care Eyes - no icterus, ENT - no bleeding LNs cervical not palpable Neck - no LN Respiratory Normal Breath sounds - CTA anteriorly CVS S1 S2 + Extremities no edema General GI Soft Rectal deferred female - deferred Skin warm Musculoskeletal moves limbs Neurologically follows commands - Constitutional Vitals: Last Vital Signs Temp 99.5 F 07/31/19 03:43 Pulse 86 07/31/19 11:04 Resp 40 H 07/31/19 06:10 BP 110/57 07/31/19 11:04 Pulse Ox 95 07/31/19 06:10 - Labs Lab Results: Laboratory Results - last 24 hr 07/28/19 07/30/19 07/30/19 13:23 16:09 21:57 WBC RBC Hgb Hct MCV MCH MCHC RDW Plt Count Lymph % (Auto) [place] % (Auto) Eos % (Auto) Add Manual Diff Total Counted Seg Neutrophils % Seg Neuts % (Manual) Band Neutrophils % Lymphocytes % (Manual) Reactive Lymphs % (Man) Monocytes % (Manual) Eosinophils % (Manual) Basophils % (Manual) Metamyelocytes % Myelocytes % Promyelocytes % Blast Cells % Nucleated RBC % Seg Neutrophils # Man Band Neutrophils # Lymphocytes # (Manual) Abs React Lymphs (Man) Monocytes # (Manual) Eosinophils # (Manual) Basophils # (Manual) Metamyelocytes # Myelocytes # Promyelocytes # Blast Cells # WBC Morphology Hypersegmented Neuts Hyposegmented Neuts Hypogranular Neuts Smudge Cells Toxic Granulation Toxic Vacuolation Dohle Bodies Pelger-Huet Anomaly Pao Rods Platelet Estimate Clumped Platelets Plt Clumps, EDTA Large Platelets Giant Platelets Platelet Satelliting Plt Morphology Comment RBC Morphology Dimorphic RBCs Polychromasia Hypochromasia Poikilocytosis Anisocytosis Microcytosis Macrocytosis Spherocytes Pappenheimer Bodies Sickle Cells Target Cells Tear Drop Cells Ovalocytes Helmet Cells [place] Bodies [place] Rings Manuel Cells Bite Cells Crenated Cell Elliptocytes Acanthocytes (Spur) Rouleaux Hemoglobin C Crystals Schistocytes Malaria parasites Chung Bodies Hem Pathologist Commnt Sodium Potassium Chloride Carbon Dioxide Anion Gap BUN Creatinine Estimated GFR BUN/Creatinine Ratio Glucose POC Glucose 85 130 H Calcium Phosphorus Magnesium Blood Type O POSITIVE Antibody Screen Negative Crossmatch See Detail 07/31/19 07/31/19 07/31/19 05:18 05:18 08:45 WBC RBC 1.80 L Hgb 5.5 L* Hct 15.9 L* MCV 89 MCH 31 MCHC 35 H RDW 16.4 H Plt Count 6 L* Lymph % (Auto) Cloud Physicist [place] % (Auto) Cloud Physicist Eos % (Auto) Cloud Physicist Add Manual Diff Complete Total Counted 100 Seg Neutrophils % Cloud Physicist Seg Neuts % (Manual) 3.0 L Band Neutrophils % 0 Lymphocytes % (Manual) 76.0 H Reactive Lymphs % (Man) 10.0 Monocytes % (Manual) 0 Eosinophils % (Manual) 11.0 H Basophils % (Manual) 0 Metamyelocytes % 0 Myelocytes % 0 Promyelocytes % 0 Blast Cells % 0 Nucleated RBC % Not Reportable Seg Neutrophils # Man 0.0 L Band Neutrophils # 0.0 Lymphocytes # (Manual) 0.0 L Abs React Lymphs (Man) 0.0 Monocytes # (Manual) 0.0 Eosinophils # (Manual) 0.0 Basophils # (Manual) 0.0 Metamyelocytes # 0.0 Myelocytes # 0.0 Promyelocytes # 0.0 Blast Cells # 0.0 WBC Morphology Not Reportable Hypersegmented Neuts Not Reportable Hyposegmented Neuts Not Reportable Hypogranular Neuts Not Reportable Smudge Cells Not Reportable Toxic Granulation Not Reportable Toxic Vacuolation Not Reportable Dohle Bodies Not Reportable Pelger-Huet Anomaly Not Reportable Pao Rods Not Reportable Platelet Estimate Consistent w auto Clumped Platelets Not Reportable Plt Clumps, EDTA Not Reportable Large Platelets Not Reportable Giant Platelets Not Reportable Platelet Satelliting Not Reportable Plt Morphology Comment Not Reportable RBC Morphology Not Reportable Dimorphic RBCs Not Reportable Polychromasia Not Reportable Hypochromasia 3+ Poikilocytosis Not Reportable Anisocytosis Not Reportable Microcytosis Not Reportable Macrocytosis Not Reportable Spherocytes Not Reportable Pappenheimer Bodies Not Reportable Sickle Cells Not Reportable Target Cells Not Reportable Tear Drop Cells Not Reportable Ovalocytes Not Reportable Helmet Cells Not Reportable [place] Bodies Not Reportable [place] Rings Not Reportable Manuel Cells Not Reportable Bite Cells Not Reportable Crenated Cell Not Reportable Elliptocytes Few Acanthocytes (Spur) Not Reportable Rouleaux Not Reportable Hemoglobin C Crystals Not Reportable Schistocytes Not Reportable Malaria parasites Not Reportable Chung Bodies Not Reportable Hem Pathologist Commnt No Sodium 138 Potassium 3.8 Chloride 109.6 H Carbon Dioxide 19 L Anion Gap 13 BUN 25 H Creatinine 0.7 Estimated GFR > 60 BUN/Creatinine Ratio 36 Glucose 120 H POC Glucose 151 H Calcium 8.2 L Phosphorus 2.50 Magnesium 2.10 Blood Type Antibody Screen Crossmatch Medications & Allergies - Medications Allergies/Adverse Reactions: Allergies No Known Allergies Allergy (Verified 06/06/19 08:16) Home Medications: Home Medications Medication Instructions Recorded Confirmed Last Taken Type Acetaminophen [Acetaminophen TAB] 500 mg PO Q6HR 05/26/19 07/30/19 07/13/19 History Venlafaxine [Effexor] 75 mg PO BID 05/26/19 07/30/19 07/13/19 History Amlodipine Besylate [Norvasc] 5 mg PO DAILY #30 tablet 05/28/19 07/30/19 07/13/19 Rx HYDROcodone/APAP 5-325 [[place] 1 each PO Q6HR PRN #10 tablet 05/28/19 07/30/19 07/13/19 Rx 5-325 mg TAB] Loratadine [Claritin] 10 mg PO DAILY #30 tablet 05/28/19 07/30/19 07/13/19 Rx Metformin HCl [metFORMIN] 1,000 mg PO BID #60 tablet 05/28/19 07/30/19 07/13/19 Rx Polyethylene Glycol 3350 [Miralax 17 gm PO QDAY #30 powd.pack 05/28/19 07/30/19 07/13/19 Rx 3350] ISOSORBIDE MONOnitrate [Imdur ER] 30 mg PO QDAY #30 tablet 07/01/19 07/30/19 07/13/19 Rx levoFLOXacin [Levaquin] 750 mg PO QDAY #8 tablet 07/20/19 07/30/19 Unknown Rx metroNIDAZOLE [Flagyl] 500 mg PO Q8HR #24 tablet 07/20/19 07/30/19 Unknown Rx Active Medications: Generic Name Dose Route Start Last Admin Trade Name Freq PRN Reason Stop Dose Admin Acetaminophen 500 mg 07/29/19 12:00 07/31/19 11:24 Tylenol PO 500 mg Q6HR XOCHITL Administration Acetaminophen/Hydrocodone Bitart 1 each 07/29/19 08:06 07/30/19 20:16 [place] 5/325 PO 1 each Q6HR PRN Administration PAIN Amlodipine Besylate 5 mg 07/29/19 10:00 07/31/19 11:04 Amlodipine PO 5 mg DAILY XOCHITL Administration Hydromorphone HCl 0.5 mg 07/28/19 18:10 07/30/19 03:31 Dilaudid IV 0.5 mg Q3H PRN Administration Pain , Severe (7-10) Metronidazole 500 mg in 100 mls @ 100 mls/hr 07/30/19 08:00 07/31/19 05:21 Flagyl 500 Mg/100 Ml IV 100 mls/hr Q8HR XOCHITL Administration Cefepime HCl 2 gm in 100 mls @ 200 mls/hr 07/30/19 19:00 07/31/19 12:18 Cefepime/Ns 2 Gm/100 Ml IV 200 mls/hr Q12H XOCHITL Administration Protocol Insulin Human Lispro 0 unit 07/29/19 07:30 07/31/19 12:16 Humalog SUB-Q Not Given ACHS XOCHITL Protocol Isosorbide Mononitrate 30 mg 07/29/19 10:00 07/31/19 11:03 Imdur PO 30 mg QDAY XOCHITL Administration Polyethylene Glycol 17 gm 07/29/19 10:00 07/31/19 11:03 Miralax 3350 PO 17 gm QDAY XOCHITL Administration Tbo-Filgrastim 300 mcg 07/29/19 12:00 07/31/19 12:15 Granix SUB-Q 08/01/19 13:00 300 mcg DAILY XOCHITL Administration Venlafaxine HCl 75 mg 07/29/19 10:00 07/31/19 11:03 Effexor PO 75 mg BID XOCHITL Administration
--- NOTE | 2019-07-31 13:00 | Progress Note ---
Assessment and Plan Assessment and plan: --Pancytopenia; secondary to myelodysplastic syndrome Total 3 PRBC 2 unit platelets transfused , neutropenia precautions Continue Filgastrin per hemat, Transfuse 1 more unit PRBC , closely monitor Management per hematology oncology --Sigmoid diverticulitis; continue antibiotics Surgical evaluation noted and appreciated Started clear liquids, recommend outpatient colonoscopy Transition to oral antibiotics upon discharge --Acute Sepsis; secondary to sigmoid diverticulitis Follow cultures, antibiotics, ID following --Myelodysplastic syndrome; Immuno suppressive state Management per hematology --Hypertension; moderate control, antihypertensives and PRN medications, --Diabetes mellitus; Accu-Chek SSC and ADA diet,Insulin as needed --Moderate malnutrition and hypoalbuminemia; nutrition supplements and supportive care --DVT prophylaxis; SCDs No pharmacologic anticoagulation in view of pancytopenia --Full code Patient is critically ill very poor prognosis Plan of care reviewed with the patient and the family members at the bedside I also discussed with patient's nurse Critical care time 32 minutes History Interval history: Patient seen and examined medical records reviewed Complaints of generalized weakness and some headache Also complains of upper respiratory symptoms and congestion Vital signs noted Remains pancytopenic Hospitalist Physical - Constitutional Vitals: Temp Pulse Resp BP Pulse Ox 99.5 F 86 40 H 110/57 95 07/31/19 03:43 07/31/19 11:04 07/31/19 06:10 07/31/19 11:04 07/31/19 06:10 General appearance: Present: mild distress, well-nourished - EENT Eyes: Present: PERRL, EOM intact - Neck Neck: Present: supple, normal ROM - Respiratory Respiratory effort: normal Respiratory: bilateral: diminished, negative: rales, rhonchi, wheezing - Cardiovascular Rhythm: regular Heart Sounds: Present: S1 & S2 - Extremities Extremities: no ischemia, No edema - Abdominal General gastrointestinal: soft, non-tender, non-distended, normal bowel sounds - Integumentary Integumentary: Present: clear, warm - Psychiatric Psychiatric: appropriate mood/affect, cooperative - Neurologic Neurologic: CNII-XII intact, moves all extremities Results - Labs CBC & Chem 7: 07/31/19 05:18 07/31/19 05:18 Labs: Laboratory Last Values WBC K/mm3 (4.5-11.0) 07/31/19 05:18 RBC 1.80 M/mm3 (3.65-5.03) L 07/31/19 05:18 Hgb 5.5 gm/dl (10.1-14.3) L* 07/31/19 05:18 Hct 15.9 % (30.3-42.9) L* 07/31/19 05:18 MCV 89 fl (79-97) 07/31/19 05:18 MCH 31 pg (28-32) 07/31/19 05:18 MCHC 35 % (30-34) H 07/31/19 05:18 RDW 16.4 % (13.2-15.2) H 07/31/19 05:18 Plt Count 6 K/mm3 (140-440) L* 07/31/19 05:18 Lymph % (Auto) Washing Machine Installer 07/31/19 05:18 [place] % (Auto) Washing Machine Installer 07/31/19 05:18 Eos % (Auto) Washing Machine Installer 07/31/19 05:18 Add Manual Diff Complete 07/31/19 05:18 Total Counted 100 07/31/19 05:18 Seg Neutrophils % Washing Machine Installer 07/31/19 05:18 Seg Neuts % (Manual) 3.0 % (40.0-70.0) L 07/31/19 05:18 Band Neutrophils % 0 % 07/31/19 05:18 Lymphocytes % (Manual) 76.0 % (13.4-35.0) H 07/31/19 05:18 Reactive Lymphs % (Man) 10.0 % 07/31/19 05:18 Monocytes % (Manual) 0 % (0.0-7.3) 07/31/19 05:18 Eosinophils % (Manual) 11.0 % (0.0-4.3) H 07/31/19 05:18 Basophils % (Manual) 0 % (0.0-1.8) 07/31/19 05:18 Metamyelocytes % 0 % 07/31/19 05:18 Myelocytes % 0 % 07/31/19 05:18 Promyelocytes % 0 % 07/31/19 05:18 Blast Cells % 0 % 07/31/19 05:18 Nucleated RBC % Not Reportable 07/31/19 05:18 Seg Neutrophils # Man 0.0 K/mm3 (1.8-7.7) L 07/31/19 05:18 Band Neutrophils # 0.0 K/mm3 07/31/19 05:18 Lymphocytes # (Manual) 0.0 K/mm3 (1.2-5.4) L 07/31/19 05:18 Abs React Lymphs (Man) 0.0 K/mm3 07/31/19 05:18 Monocytes # (Manual) 0.0 K/mm3 (0.0-0.8) 07/31/19 05:18 Eosinophils # (Manual) 0.0 K/mm3 (0.0-0.4) 07/31/19 05:18 Basophils # (Manual) 0.0 K/mm3 (0.0-0.1) 07/31/19 05:18 Metamyelocytes # 0.0 K/mm3 07/31/19 05:18 Myelocytes # 0.0 K/mm3 07/31/19 05:18 Promyelocytes # 0.0 K/mm3 07/31/19 05:18 Blast Cells # 0.0 K/mm3 07/31/19 05:18 WBC Morphology Not Reportable 07/31/19 05:18 Hypersegmented Neuts Not Reportable 07/31/19 05:18 Hyposegmented Neuts Not Reportable 07/31/19 05:18 Hypogranular Neuts Not Reportable 07/31/19 05:18 Smudge Cells Not Reportable 07/31/19 05:18 Toxic Granulation Not Reportable 07/31/19 05:18 Toxic Vacuolation Not Reportable 07/31/19 05:18 Dohle Bodies Not Reportable 07/31/19 05:18 Pelger-Huet Anomaly Not Reportable 07/31/19 05:18 Pao Rods Not Reportable 07/31/19 05:18 Platelet Estimate Consistent w auto 07/31/19 05:18 Clumped Platelets Not Reportable 07/31/19 05:18 Plt Clumps, EDTA Not Reportable 07/31/19 05:18 Large Platelets Not Reportable 07/31/19 05:18 Giant Platelets Not Reportable 07/31/19 05:18 Platelet Satelliting Not Reportable 07/31/19 05:18 Plt Morphology Comment Not Reportable 07/31/19 05:18 RBC Morphology Not Reportable 07/31/19 05:18 Dimorphic RBCs Not Reportable 07/31/19 05:18 Polychromasia Not Reportable 07/31/19 05:18 Hypochromasia 3+ 07/31/19 05:18 Poikilocytosis Not Reportable 07/31/19 05:18 Anisocytosis Not Reportable 07/31/19 05:18 Microcytosis Not Reportable 07/31/19 05:18 Macrocytosis Not Reportable 07/31/19 05:18 Spherocytes Not Reportable 07/31/19 05:18 Pappenheimer Bodies Not Reportable 07/31/19 05:18 Sickle Cells Not Reportable 07/31/19 05:18 Target Cells Not Reportable 07/31/19 05:18 Tear Drop Cells Not Reportable 07/31/19 05:18 Ovalocytes Not Reportable 07/31/19 05:18 Helmet Cells Not Reportable 07/31/19 05:18 [place] Bodies Not Reportable 07/31/19 05:18 [place] Rings Not Reportable 07/31/19 05:18 [place] Cells Not Reportable 07/31/19 05:18 Bite Cells Not Reportable 07/31/19 05:18 Crenated Cell Not Reportable 07/31/19 05:18 Elliptocytes Few 07/31/19 05:18 Acanthocytes (Spur) Not Reportable 07/31/19 05:18 Rouleaux Not Reportable 07/31/19 05:18 Hemoglobin C Crystals Not Reportable 07/31/19 05:18 Schistocytes Not Reportable 07/31/19 05:18 Malaria parasites Not Reportable 07/31/19 05:18 Chung Bodies Not Reportable 07/31/19 05:18 Hem Pathologist Commnt No 07/31/19 05:18 Sodium 138 mmol/L (137-145) 07/31/19 05:18 Potassium 3.8 mmol/L (3.6-5.0) 07/31/19 05:18 Chloride 109.6 mmol/L (98-107) H 07/31/19 05:18 Carbon Dioxide 19 mmol/L (22-30) L 07/31/19 05:18 Anion Gap 13 mmol/L 07/31/19 05:18 BUN 25 mg/dL (7-17) H 07/31/19 05:18 Creatinine 0.7 mg/dL (0.7-1.2) 07/31/19 05:18 Estimated GFR > 60 ml/min 07/31/19 05:18 BUN/Creatinine Ratio 36 % 07/31/19 05:18 Glucose 120 mg/dL (65-100) H 07/31/19 05:18 POC Glucose 118 (70-105) H 07/31/19 12:24 Lactic Acid 1.80 mmol/L (0.7-2.0) 07/28/19 15:16 Calcium 8.2 mg/dL (8.4-10.2) L 07/31/19 05:18 Phosphorus 2.50 mg/dL (2.5-4.5) 07/31/19 05:18 Magnesium 2.10 mg/dL (1.7-2.3) 07/31/19 05:18 Total Bilirubin 0.70 mg/dL (0.1-1.2) 07/29/19 10:26 AST 9 units/L (5-40) 07/29/19 10:26 ALT < 5 units/L (7-56) L 07/29/19 10:26 Alkaline Phosphatase 39 units/L (35-129) 07/29/19 10:26 Ammonia 21.0 umol/L (25-60) L 07/28/19 13:15 Total Creatine Kinase < 7 units/L (30-135) L 07/28/19 13:15 CK-MB (CK-2) < 1.0 ng/mL (0.0-4.0) 07/28/19 13:15 CK-MB (CK-2) Rel Index 0.0 (0-4) 07/28/19 13:15 Troponin T < 0.010 ng/mL (0.00-0.029) 07/28/19 13:15 Total Protein 6.3 g/dL (6.3-8.2) 07/29/19 10:26 Albumin 2.8 g/dL (3.9-5) L 07/29/19 10:26 Albumin/Globulin Ratio 0.8 % 07/29/19 10:26 Urine Color [place] (Yellow) 07/28/19 Unknown Urine Turbidity Clear (Clear) 07/28/19 Unknown Urine pH 5.0 (5.0-7.0) 07/28/19 Unknown Ur Specific [place] 1.019 (1.003-1.030) 07/28/19 Unknown Urine Protein <15 mg/dl mg/dL (Negative) 07/28/19 Unknown Urine Glucose (UA) Neg mg/dL (Negative) 07/28/19 Unknown Urine Ketones Neg mg/dL (Negative) 07/28/19 Unknown Urine Blood Neg (Negative) 07/28/19 Unknown Urine Nitrite Neg (Negative) 07/28/19 Unknown Urine Bilirubin Neg (Negative) 07/28/19 Unknown Urine Urobilinogen < 2.0 mg/dL (<2.0) 07/28/19 Unknown Ur Leukocyte Esterase Neg (Negative) 07/28/19 Unknown Urine WBC (Auto) < 1.0 /HPF (0.0-6.0) 07/28/19 Unknown Urine RBC (Auto) < 1.0 /HPF (0.0-6.0) 07/28/19 Unknown U Epithel Cells (Auto) 1.0 /HPF (0-13.0) 07/28/19 Unknown Urine Mucus Few /HPF 07/28/19 Unknown Blood Type O POSITIVE 07/28/19 13:23 Antibody Screen Negative 07/28/19 13:23 Crossmatch See Detail 07/28/19 13:23 Active Medications - Current Medications Current Medications: Generic Name Dose Route Start Last Admin Trade Name Freq PRN Reason Stop Dose Admin Acetaminophen 500 mg 07/29/19 12:00 07/31/19 11:24 Tylenol PO 500 mg Q6HR XOCHITL Administration Acetaminophen/Hydrocodone Bitart 1 each 07/29/19 08:06 07/30/19 20:16 [place] 5/325 PO 1 each Q6HR PRN Administration PAIN Amlodipine Besylate 5 mg 07/29/19 10:00 07/31/19 11:04 Amlodipine PO 5 mg DAILY XOCHITL Administration Hydromorphone HCl 0.5 mg 07/28/19 18:10 07/30/19 03:31 Dilaudid IV 0.5 mg Q3H PRN Administration Pain , Severe (7-10) Metronidazole 500 mg in 100 mls @ 100 mls/hr 07/30/19 08:00 07/31/19 05:21 Flagyl 500 Mg/100 Ml IV 100 mls/hr Q8HR XOCHITL Administration Cefepime HCl 2 gm in 100 mls @ 200 mls/hr 07/30/19 19:00 07/31/19 12:18 Cefepime/Ns 2 Gm/100 Ml IV 200 mls/hr Q12H XOCHITL Administration Protocol Insulin Human Lispro 0 unit 07/29/19 07:30 07/31/19 12:16 Humalog SUB-Q Not Given ACHS XOCHITL Protocol Isosorbide Mononitrate 30 mg 07/29/19 10:00 07/31/19 11:03 Imdur PO 30 mg QDAY XOCHITL Administration Polyethylene Glycol 17 gm 07/29/19 10:00 07/31/19 11:03 Miralax 3350 PO 17 gm QDAY XOCHITL Administration Tbo-Filgrastim 300 mcg 07/29/19 12:00 07/31/19 12:15 Granix SUB-Q 08/01/19 13:00 300 mcg DAILY XOCHITL Administration Venlafaxine HCl 75 mg 07/29/19 10:00 07/31/19 11:03 Effexor PO 75 mg BID XOCHITL Administration Nutrition/Malnutrition Assess - Dietary Evaluation Nutrition/Malnutrition Findings: Nutrition Notes Start: 07/29/19 12:39 Freq: Status: Active Protocol: Document 07/29/19 12:39 RM (Rec: 07/29/19 12:57 RM [id number]) Nutrition Notes Need for Assessment generated from: MST Initial or Follow up Assessment Current Diagnosis Diabetes,Hypertension Other Pertinent Diagnosis Myelodysplastic syndrome, Hx bone CA, Sigmoid diverticulitis Current Diet Clear liquid Labs/Tests Reviewed Pertinent Medications Reviewed Height 5 ft 2 in Weight 53.7 kg Usual Body Weight 60 kg [place] Body Weight (kg) 50.00 BMI 21.6 Weight change and time frame 10.5% wt loss X 4 months Subjective/Other Information Screened for malnutrition. Pt stated that INFORMATION MANAGEMENT SPECIALIST her appetite was poor and that she bites of food X 2 weeks. Stated that her appetite is okay currently. Noted breakfast at bedside w/juice and broth drunk but jello uneaten. Pt stated that she plans to eat the jello. Pt agreed to trial of Ensure Clear. Denied N/V. Admitted to diarrhea. Stated UBW was 132 lbs 4 months ago. Noted slight temporal wasting. Burn Absent Trauma Absent Minimum of two criteria Yes Energy Intake (non-severe) <75% Estimated Energy Requirement >7 days Interpretation of Weight Loss (severe) >10% in 6 months Muscle Mass Mild Depletion (non-severe) #2 Nutrition Diagnosis Underweight Comments: for older adult Etiology decreased appetite As Evidenced by Signs and Symptoms pt BMI < 22 #1 Nutrition Diagnosis Malnutrition Etiology decreased appetite As Evidenced by Signs and Symptoms 10.5% wt loss X 4 months, temporal wasting, pt statement that INFORMATION MANAGEMENT SPECIALIST she ate bites of food X 2 weeks Is patient on ventilator? No Is Patient Ambulatory and/or Out of Bed No REE-([place]-confined to bed) 1171.140 Kcal/Kg value to use for calculation 31 Approximate Energy Requirements Using 1665 kcal/Kg Calculation Used for Recommendations Kcal/kg Additional Notes Protein Needs: 64-81g (1.2-1. 5g/kg) Fluid Needs: 1 ml/kcal Nutrition Intervention Change Diet Order: Advance diet when medically able Add Supplement/Snack (indicate name/kcal Ensure Clear 1 daily /protein ) Provides kCal: 240 Provides Protein (gm) 8 Goal #1 Advance diet when medically able Anticipated Discharge Needs: Unable to determine at this time Follow-Up By: 08/01/19 Additional Comments Follow for PO and ONS intakes
[2019-07-31] MEDS ORDERED: FUROSEMIDE 40 MG/4 ML INJ IV ONE (13:12)
[2019-07-31] MEDS: HYDROcodone/ACETAMINOPHEN 5-325 MG TAB PO PRN (16:51)
[2019-07-31] MEDS ORDERED: SODIUM CHLORIDE 0.9% 500 ML 500 ML IV NR (17:00)
[2019-07-31] MEDS ORDERED: FUROSEMIDE 40 MG/4 ML INJ ONE (17:27)
[2019-07-31] MEDS: HYDROmorphone 1 MG/1 ML INJ IV PRN (20:34)
[2019-08-01] MEDS: ACETAMINOPHEN 500 MG TAB PO SCH ×5 (00:07→23:45)
[2019-08-01] MEDS: HYDROcodone/ACETAMINOPHEN 5-325 MG TAB PO PRN (04:11)
[2019-08-01 05:12] LABS: Hemoglobin 6.6 gm/dl (10.1-14.3); Mean Corpuscular HGB Conc 35 % (30-34); Mean Corpuscular Volume 89 fl (79-97); Red Blood Count 2.15 M/mm3 (3.65-5.03); Red Cell Distribution Width 16.9 % (13.2-15.2)
[2019-08-01] MEDS: metroNIDAZOLE/NS 500 MG/100 ML 500 MG/100 ML BAG IV SCH ×3 (05:15→21:37)
[2019-08-01 05:21] LABS: Hematocrit 19.2 % (30.3-42.9); Platelet Count 9 K/mm3 (140-440)
[2019-08-01 06:11] LABS: Anisocytosis 1+; Basophils % (Manual) 0 % (0.0-1.8); Eosinophils % (Manual) 0 % (0.0-4.3); Monocytes % (Manual) 0 % (0.0-7.3); Total Cells Counted 10
[2019-08-01 06:12] LABS: Hypochromasia 2+; Platelet Estimate Consistent w Auto; Target Cells Few
--- NOTE | 2019-08-01 07:48 | Hem/Onc Progress Note ---
Assessment and Plan 1. Anemia, leukopenia, thrombocytopenia, severe. Transfusion support as needed. In spite of transfusion, the patient's counts have not been improving. There was a plan for a bone marrow biopsy. This could not be done as an inpatient status, so I was planning to do as an outpatient; however, she did not keep her appointment. She is on reverse isolation. I am not sure what the long-term plan will be, which will help the patient. She has had received chemotherapy for her myelodysplastic syndrome, it does not appear to be doing any good. I am not sure if she will be a candidate for bone marrow transplant evaluation with such severe cytopenia. Last bone marrow biopsy was done in this year of March, which showed 90% to 100% cellularity with myelodysplastic syndrome. 2. History of splenomegaly with spleen lesions. 3. History of methicillin-resistant Staphylococcus aureus. 4. History of diabetes. 5. History of hypertension. I will follow the patient during inpatient stay. Over weekend I had D/W ELDEST DAUGHTER - reg pt - poor prognosis - need for repeat BMBx as IP or OP - alpine referral as OP pt has had 3 sessions of chemo - with not much response - 4 sessions of chemo are advised - but pt has sever cytopenias 08/01 - d/w Dr Amaral - pt has hb > 6 - OP follow up an option - once functionally better I will do BMBx as OP I had tried to do BMBX as IP - was not successful - as this could be ? AML or persistent MDS - Patient Problems (1) Myelodysplastic syndrome Current Visit: No Status: Chronic Subjective Date of service: 08/01/19 Principal diagnosis: MDS Interval history: no bleeding Objective - Exam Narrative Exam: Pain - none General appearance - on o2 Performance status - limited self care Eyes - no icterus, ENT - no bleeding LNs cervical not palpable Neck - no LN Respiratory Normal Breath sounds - CTA anteriorly CVS S1 S2 + Extremities no edema General GI Soft - SPLEEN + Rectal deferred female - deferred Skin warm Musculoskeletal moves limbs Neurologically follows commands - Constitutional Vitals: Last Vital Signs Temp 97.6 F 08/01/19 04:00 Pulse 88 08/01/19 06:00 Resp 17 08/01/19 06:00 BP 140/52 08/01/19 06:00 Pulse Ox 93 08/01/19 06:00 - Labs Lab Results: Laboratory Results - last 24 hr 07/28/19 07/31/19 07/31/19 13:23 05:18 08:45 WBC RBC Hgb Hct MCV MCH MCHC RDW Plt Count Lymph % (Auto) Add Manual Diff Complete Total Counted 100 Seg Neutrophils % Seg Neuts % (Manual) 3.0 L Band Neutrophils % 0 Lymphocytes % (Manual) 76.0 H Reactive Lymphs % (Man) 10.0 Monocytes % (Manual) 0 Eosinophils % (Manual) 11.0 H Basophils % (Manual) 0 Metamyelocytes % 0 Myelocytes % 0 Promyelocytes % 0 Blast Cells % 0 Nucleated RBC % Not Reportable Seg Neutrophils # Man 0.0 L Band Neutrophils # 0.0 Lymphocytes # (Manual) 0.0 L Abs React Lymphs (Man) 0.0 Monocytes # (Manual) 0.0 Eosinophils # (Manual) 0.0 Basophils # (Manual) 0.0 Metamyelocytes # 0.0 Myelocytes # 0.0 Promyelocytes # 0.0 Blast Cells # 0.0 WBC Morphology Not Reportable Hypersegmented Neuts Not Reportable Hyposegmented Neuts Not Reportable Hypogranular Neuts Not Reportable Smudge Cells Not Reportable Toxic Granulation Not Reportable Toxic Vacuolation Not Reportable Dohle Bodies Not Reportable Pelger-Huet Anomaly Not Reportable Pao Rods Not Reportable Platelet Estimate Consistent w auto Clumped Platelets Not Reportable Plt Clumps, EDTA Not Reportable Large Platelets Not Reportable Giant Platelets Not Reportable Platelet Satelliting Not Reportable Plt Morphology Comment Not Reportable RBC Morphology Not Reportable Dimorphic RBCs Not Reportable Polychromasia Not Reportable Hypochromasia 3+ Poikilocytosis Not Reportable Anisocytosis Not Reportable Microcytosis Not Reportable Macrocytosis Not Reportable Spherocytes Not Reportable Pappenheimer Bodies Not Reportable Sickle Cells Not Reportable Target Cells Not Reportable Tear Drop Cells Not Reportable Ovalocytes Not Reportable Helmet Cells Not Reportable [place] Bodies Not Reportable [place] Rings Not Reportable [place] Cells Not Reportable Bite Cells Not Reportable Crenated Cell Not Reportable Elliptocytes Few Acanthocytes (Spur) Not Reportable Rouleaux Not Reportable Hemoglobin C Crystals Not Reportable Schistocytes Not Reportable Malaria parasites Not Reportable Chung Bodies Not Reportable Hem Pathologist Commnt No POC Glucose 151 H Blood Type Antibody Screen Crossmatch See Detail 07/31/19 07/31/19 07/31/19 11:50 12:24 17:23 WBC RBC Hgb Hct MCV MCH MCHC RDW Plt Count Lymph % (Auto) Add Manual Diff Total Counted Seg Neutrophils % Seg Neuts % (Manual) Band Neutrophils % Lymphocytes % (Manual) Reactive Lymphs % (Man) Monocytes % (Manual) Eosinophils % (Manual) Basophils % (Manual) Metamyelocytes % Myelocytes % Promyelocytes % Blast Cells % Nucleated RBC % Seg Neutrophils # Man Band Neutrophils # Lymphocytes # (Manual) Abs React Lymphs (Man) Monocytes # (Manual) Eosinophils # (Manual) Basophils # (Manual) Metamyelocytes # Myelocytes # Promyelocytes # Blast Cells # WBC Morphology Hypersegmented Neuts Hyposegmented Neuts Hypogranular Neuts Smudge Cells Toxic Granulation Toxic Vacuolation Dohle Bodies Pelger-Huet Anomaly Pao Rods Platelet Estimate Clumped Platelets Plt Clumps, EDTA Large Platelets Giant Platelets Platelet Satelliting Plt Morphology Comment RBC Morphology Dimorphic RBCs Polychromasia Hypochromasia Poikilocytosis Anisocytosis Microcytosis Macrocytosis Spherocytes Pappenheimer Bodies Sickle Cells Target Cells Tear Drop Cells Ovalocytes Helmet Cells [place] Bodies [place] Rings Manuel Cells Bite Cells Crenated Cell Elliptocytes Acanthocytes (Spur) Rouleaux Hemoglobin C Crystals Schistocytes Malaria parasites Chung Bodies Hem Pathologist Commnt POC Glucose 118 H 172 H Blood Type O POSITIVE Antibody Screen Negative Crossmatch See Detail 07/31/19 08/01/19 21:06 04:26 WBC 0.1 L* RBC 2.15 L Hgb 6.6 L Hct 19.2 L* MCV 89 MCH 31 MCHC 35 H RDW 16.9 H Plt Count 9 L* Lymph % (Auto) Industrial Roof [employer] Add Manual Diff Complete Total Counted 10 Seg Neutrophils % Industrial [employer]of [employer] Seg Neuts % (Manual) 0 L Band Neutrophils % 0 Lymphocytes % (Manual) 100.0 H Reactive Lymphs % (Man) 0 Monocytes % (Manual) 0 Eosinophils % (Manual) 0 Basophils % (Manual) 0 Metamyelocytes % 0 Myelocytes % 0 Promyelocytes % 0 Blast Cells % 0 Nucleated RBC % Not Reportable Seg Neutrophils # Man 0.0 L Band Neutrophils # 0.0 Lymphocytes # (Manual) 0.1 L Abs React Lymphs (Man) 0.0 Monocytes # (Manual) 0.0 Eosinophils # (Manual) 0.0 Basophils # (Manual) 0.0 Metamyelocytes # 0.0 Myelocytes # 0.0 Promyelocytes # 0.0 Blast Cells # 0.0 WBC Morphology Not Reportable Hypersegmented Neuts Not Reportable Hyposegmented Neuts Not Reportable Hypogranular Neuts Not Reportable Smudge Cells Not Reportable Toxic Granulation Not Reportable Toxic Vacuolation Not Reportable Dohle Bodies Not Reportable Pelger-Huet Anomaly Not Reportable Pao Rods Not Reportable Platelet Estimate Consistent w auto Clumped Platelets Not Reportable Plt Clumps, EDTA Not Reportable Large Platelets Not Reportable Giant Platelets Not Reportable Platelet Satelliting Not Reportable Plt Morphology Comment Not Reportable RBC Morphology Not Reportable Dimorphic RBCs Not Reportable Polychromasia Not Reportable Hypochromasia 2+ Poikilocytosis Not Reportable Anisocytosis 1+ Microcytosis Not Reportable Macrocytosis Not Reportable Spherocytes Not Reportable Pappenheimer Bodies Not Reportable Sickle Cells Not Reportable Target Cells Few Tear Drop Cells Not Reportable Ovalocytes Not Reportable Helmet Cells Not Reportable [place] Bodies Not Reportable [place] Rings Not Reportable [place] Cells Not Reportable Bite Cells Not Reportable Crenated Cell Not Reportable Elliptocytes Not Reportable Acanthocytes (Spur) Not Reportable Rouleaux Not Reportable Hemoglobin C Crystals Not Reportable Schistocytes Not Reportable Malaria parasites Not Reportable Chung Bodies Not Reportable Hem Pathologist Commnt No POC Glucose 116 H Blood Type Antibody Screen Crossmatch Medications & Allergies - Medications Allergies/Adverse Reactions: Allergies No Known Allergies Allergy (Verified 06/06/19 08:16) Home Medications: Home Medications Medication Instructions Recorded Confirmed Last Taken Type Acetaminophen [Acetaminophen TAB] 500 mg PO Q6HR 05/26/19 07/30/19 07/13/19 History Venlafaxine [Effexor] 75 mg PO BID 05/26/19 07/30/19 07/13/19 History Amlodipine Besylate [Norvasc] 5 mg PO DAILY #30 tablet 05/28/19 07/30/19 07/13/19 Rx HYDROcodone/APAP 5-325 [[place] 1 each PO Q6HR PRN #10 tablet 05/28/19 07/30/19 07/13/19 Rx 5-325 mg TAB] Loratadine [Claritin] 10 mg PO DAILY #30 tablet 05/28/19 07/30/19 07/13/19 Rx Metformin HCl [metFORMIN] 1,000 mg PO BID #60 tablet 05/28/19 07/30/19 07/13/19 Rx Polyethylene Glycol 3350 [Miralax 17 gm PO QDAY #30 powd.pack 05/28/19 07/30/19 07/13/19 Rx 3350] ISOSORBIDE MONOnitrate [Imdur ER] 30 mg PO QDAY #30 tablet 07/01/19 07/30/19 07/13/19 Rx levoFLOXacin [Levaquin] 750 mg PO QDAY #8 tablet 07/20/19 07/30/19 Unknown Rx metroNIDAZOLE [Flagyl] 500 mg PO Q8HR #24 tablet 07/20/19 07/30/19 Unknown Rx Active Medications: Generic Name Dose Route Start Last Admin Trade Name Freq PRN Reason Stop Dose Admin Acetaminophen 500 mg 07/29/19 12:00 08/01/19 05:14 Tylenol PO 500 mg Q6HR XOCHITL Administration Acetaminophen/Hydrocodone Bitart 1 each 07/29/19 08:06 08/01/19 04:11 [place] 5/325 PO 1 each Q6HR PRN Administration PAIN Amlodipine Besylate 5 mg 07/29/19 10:00 07/31/19 11:04 Amlodipine PO 5 mg DAILY XOCHITL Administration Furosemide 40 mg 08/01/19 10:00 Lasix IV QDAY XOCHITL Hydromorphone HCl 0.5 mg 07/28/19 18:10 07/31/19 20:34 Dilaudid IV 0.5 mg Q3H PRN Administration Pain , Severe (7-10) Metronidazole 500 mg in 100 mls @ 100 mls/hr 07/30/19 08:00 08/01/19 05:15 Flagyl 500 Mg/100 Ml IV 100 mls/hr Q8HR XOCHITL Administration Cefepime HCl 2 gm in 100 mls @ 200 mls/hr 07/30/19 19:00 07/31/19 22:12 Cefepime/Ns 2 Gm/100 Ml IV 200 mls/hr Q12H XOCHITL Administration Protocol Insulin Human Lispro 0 unit 07/29/19 07:30 07/31/19 21:56 Humalog SUB-Q Not Given ACHS XOCHITL Protocol Isosorbide Mononitrate 30 mg 07/29/19 10:00 07/31/19 11:03 Imdur PO 30 mg QDAY XOCHITL Administration Polyethylene Glycol 17 gm 07/29/19 10:00 07/31/19 11:03 Miralax 3350 PO 17 gm QDAY XOCHITL Administration Tbo-Filgrastim 300 mcg 07/29/19 12:00 07/31/19 12:15 Granix SUB-Q 08/01/19 13:00 300 mcg DAILY XOCHITL Administration Venlafaxine HCl 75 mg 07/29/19 10:00 07/31/19 21:47 Effexor PO 75 mg BID XOCHITL Administration
[2019-08-01] MEDS: INSULIN LISPRO 100 UNIT/ML SUB-Q SCH ×4 (08:05→23:44)
[2019-08-01] MEDS: amLODIPine 5 MG TAB PO SCH (09:45)
[2019-08-01] MEDS: VENLAFAXINE 75 MG TAB PO SCH ×2 (09:45→21:37)
[2019-08-01] MEDS: FUROSEMIDE 40 MG/4 ML INJ IV SCH (09:46)
[2019-08-01] MEDS: POLYETHYLENE GLYCOL 3350 17 GM POWDER PO SCH (09:47)
[2019-08-01] MEDS: CEFEPIME/NS 2 GM/100 ML 2 GM/100 ML BAG IV SCH ×2 (11:16→21:37)
[2019-08-01] MEDS: HYDROmorphone 1 MG/1 ML INJ IV PRN (11:16)
[2019-08-01] MEDS: TBO-FILGRASTIM 300 MCG/0.5 ML SUB-Q SCH (11:17)
--- NOTE | 2019-08-01 11:58 | Progress Note ---
Assessment and Plan Cultures: 07/28/19 blood culture: NGTD 07/28/19 urine culture: NGTD A/P: 78 yo F PMHx MDS, metastatic stomach cancer, T2Dm, HTN admitted with recurrent diverticulitis. 1. Acute sepsis - present with fevers and neutropenia. Secondary to diverticulitis. 2. Acute sigmoid diverticulitis - Recurrent from a couple weeks ago. Continue with cefepime and metronidazole for now. Appreciate surgical consult; slowly improving. Continue medical management. CT with improvement. 3. 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 Profound neutropenia: secondary to MDS. Recs: Will continue IV Cefepime and Flagyl while she remains inpatient since she is immunocompromised and remains at risk of relapse. Overall prognosis remains poor due to her refractory MDS and neutropenia. When discharged, will do PO Augmentin to complete her antibiotic course. This was explained to the patient and her family members. Dara Crook MD, FACP [facility] ([facility]) M: [phone] O: [phone] F: [phone] Subjective Date of service: 08/01/19 Principal diagnosis: MDS - cytopenia Interval history: No fever. complains of headache and some wheezing. Intake better per RN. Family members at bedside. Objective - Exam Narrative Exam: Constitutional: Alert, cooperative. No acute distress Head, Ears, Nose: Normocephalic, atraumatic. External ears, nose normal Eyes: Conjunctivae/corneas clear. No icterus. No ptosis. Neck: Supple, no meningeal signs Oral: no thrush Cardiovascular: S1, S2 normal. Respiratory: Good air entry, clear to auscultation bilaterally GI: Soft, LLQ tenderness; bowel sounds normal. No peritoneal signs Musculoskeletal: No pedal edema, no cyanosis. Right index finger with no drainage, non tender Skin: No rash or abscess Hem/Lymphatic: No palpable cervical or supraclavicular nodes. No lymphangitis Psych: Mood ok. Affect normal Neurological: Awake, alert, oriented. No gross abnormality - Constitutional Vitals: Vital Signs Temp Pulse Resp BP Pulse Ox 97.6 F 95 H 23 128/56 95 08/01/19 08:09 08/01/19 09:45 08/01/19 08:00 08/01/19 09:45 08/01/19 08:00 Temperature -Last 24 Hours Temperature 97.6 F Temperature 97.6 F Temperature 97.6 F Temperature 97.6 F Temperature 97.7 F Temperature 97.5 F Temperature 97.5 F Temperature 97.4 F Temperature 98.7 F Temperature 97.7 F Temperature 98.7 F Temperature 97.3 F Temperature 98.3 F - Labs CBC & Chem 7: 08/01/19 04:26 07/31/19 05:18 Labs: Abnormal lab results 07/28/19 07/31/19 07/31/19 Range/Units 13:23 11:50 12:24 WBC (4.5-11.0) K/mm3 RBC (3.65-5.03) M/mm3 Hgb (10.1-14.3) gm/dl Hct (30.3-42.9) % MCHC (30-34) % RDW (13.2-15.2) % Plt Count (140-440) K/mm3 Seg Neuts % (Manual) (40.0-70.0) % Lymphocytes % (Manual) (13.4-35.0) % Seg Neutrophils # Man (1.8-7.7) K/mm3 Lymphocytes # (Manual) (1.2-5.4) K/mm3 POC Glucose 118 H (70-105) Crossmatch See Detail See Detail 07/31/19 07/31/19 08/01/19 Range/Units 17:23 21:06 04:26 WBC 0.1 L* (4.5-11.0) K/mm3 RBC 2.15 L (3.65-5.03) M/mm3 Hgb 6.6 L (10.1-14.3) gm/dl Hct 19.2 L* (30.3-42.9) % MCHC 35 H (30-34) % RDW 16.9 H (13.2-15.2) % Plt Count 9 L* (140-440) K/mm3 Seg Neuts % (Manual) 0 L (40.0-70.0) % Lymphocytes % (Manual) 100.0 H (13.4-35.0) % Seg Neutrophils # Man 0.0 L (1.8-7.7) K/mm3 Lymphocytes # (Manual) 0.1 L (1.2-5.4) K/mm3 POC Glucose 172 H 116 H (70-105) Crossmatch 08/01/19 08/01/19 Range/Units 08:34 11:39 WBC (4.5-11.0) K/mm3 RBC (3.65-5.03) M/mm3 Hgb (10.1-14.3) gm/dl Hct (30.3-42.9) % MCHC (30-34) % RDW (13.2-15.2) % Plt Count (140-440) K/mm3 Seg Neuts % (Manual) (40.0-70.0) % Lymphocytes % (Manual) (13.4-35.0) % Seg Neutrophils # Man (1.8-7.7) K/mm3 Lymphocytes # (Manual) (1.2-5.4) K/mm3 POC Glucose 178 H 186 H (70-105) Crossmatch
--- NOTE | 2019-08-01 21:17 | Progress Note ---
Assessment and Plan Assessment and plan: 78-year-old female patient with significant past medical history of myelodysplastic syndrome with pancytopenia multiple transfusions in the past was admitted through emergency room with severe anemia severe leukopenia and thrombocytopenia, Admit to the hospital symptomatically managed patient received PRBC and platelet transfusion. Respirations has severe neutropenia neutropenia precautions observedEvaluated by hematology oncologist medications optimized follow closely WBC platelets and RBCs, adjust medications as needed --Pancytopenia; secondary to myelodysplastic syndrome Total 3 PRBC 2 unit platelets transfused , neutropenia precautions Continue Filgastrin per hemat, Transfuse 1 more unit PRBC , closely monitor Management per hematology oncology --Sigmoid diverticulitis; continue antibiotics Surgical evaluation noted and appreciated Started clear liquids, recommend outpatient colonoscopy Transition to oral antibiotics upon discharge --Acute Sepsis; secondary to sigmoid diverticulitis Follow cultures, antibiotics, ID following --Myelodysplastic syndrome; Immuno suppressive state Management per hematology --Hypertension; moderate control, antihypertensives and PRN medications, --Diabetes mellitus; Accu-Chek SSC and ADA diet,Insulin as needed --Moderate malnutrition and hypoalbuminemia; nutrition supplements and supportive care --DVT prophylaxis; SCDs No pharmacologic anticoagulation in view of pancytopenia --Full code Patient is critically ill very poor prognosis Plan of care reviewed with the patient and the family members at the bedside I also discussed with patient's nurse Critical care time 32 minutes Disposition; follow blood work tomorrow Stable, and if cleared by hematology oncologist may be discharged home History Interval history: Patient seen and examined medical records reviewed Patient complains of generalized weakness, mild shortness of breath Pancytopenia received multiple units of PRBC and platelets Hematology oncology is following Vital signs noted Hospitalist Physical - Constitutional Vitals: Temp Pulse Resp BP Pulse Ox 99.6 F 91 H 19 111/51 95 08/01/19 20:00 08/01/19 20:00 08/01/19 20:00 08/01/19 20:00 08/01/19 20:00 General appearance: Present: mild distress, well-nourished - EENT Eyes: Present: PERRL, EOM intact - Neck Neck: Present: supple, normal ROM - Respiratory Respiratory effort: normal Respiratory: bilateral: diminished, negative: rales, rhonchi, wheezing - Cardiovascular Rhythm: regular Heart Sounds: Present: S1 & S2 - Extremities Extremities: no ischemia, No edema - Abdominal General gastrointestinal: soft, non-tender, non-distended, normal bowel sounds - Integumentary Integumentary: Present: clear, warm - Psychiatric Psychiatric: appropriate mood/affect, cooperative - Neurologic Neurologic: CNII-XII intact Results - Labs CBC & Chem 7: 08/01/19 04:26 07/31/19 05:18 Labs: Laboratory Last Values WBC 0.1 K/mm3 (4.5-11.0) L* 08/01/19 04:26 RBC 2.15 M/mm3 (3.65-5.03) L 08/01/19 04:26 Hgb 6.6 gm/dl (10.1-14.3) L 08/01/19 04:26 Hct 19.2 % (30.3-42.9) L* 08/01/19 04:26 MCV 89 fl (79-97) 08/01/19 04:26 MCH 31 pg (28-32) 08/01/19 04:26 MCHC 35 % (30-34) H 08/01/19 04:26 RDW 16.9 % (13.2-15.2) H 08/01/19 04:26 Plt Count 9 K/mm3 (140-440) L* 08/01/19 04:26 Lymph % (Auto) Book Reviewer 08/01/19 04:26 [place] % (Auto) Book Reviewer 07/31/19 05:18 Eos % (Auto) Book Reviewer 07/31/19 05:18 Add Manual Diff Complete 08/01/19 04:26 Total Counted 10 08/01/19 04:26 Seg Neutrophils % Book Reviewer 08/01/19 04:26 Seg Neuts % (Manual) 0 % (40.0-70.0) L 08/01/19 04:26 Band Neutrophils % 0 % 08/01/19 04:26 Lymphocytes % (Manual) 100.0 % (13.4-35.0) H 08/01/19 04:26 Reactive Lymphs % (Man) 0 % 08/01/19 04:26 Monocytes % (Manual) 0 % (0.0-7.3) 08/01/19 04:26 Eosinophils % (Manual) 0 % (0.0-4.3) 08/01/19 04:26 Basophils % (Manual) 0 % (0.0-1.8) 08/01/19 04:26 Metamyelocytes % 0 % 08/01/19 04:26 Myelocytes % 0 % 08/01/19 04:26 Promyelocytes % 0 % 08/01/19 04:26 Blast Cells % 0 % 08/01/19 04:26 Nucleated RBC % Not Reportable 08/01/19 04:26 Seg Neutrophils # Man 0.0 K/mm3 (1.8-7.7) L 08/01/19 04:26 Band Neutrophils # 0.0 K/mm3 08/01/19 04:26 Lymphocytes # (Manual) 0.1 K/mm3 (1.2-5.4) L 08/01/19 04:26 Abs React Lymphs (Man) 0.0 K/mm3 08/01/19 04:26 Monocytes # (Manual) 0.0 K/mm3 (0.0-0.8) 08/01/19 04:26 Eosinophils # (Manual) 0.0 K/mm3 (0.0-0.4) 08/01/19 04:26 Basophils # (Manual) 0.0 K/mm3 (0.0-0.1) 08/01/19 04:26 Metamyelocytes # 0.0 K/mm3 08/01/19 04:26 Myelocytes # 0.0 K/mm3 08/01/19 04:26 Promyelocytes # 0.0 K/mm3 08/01/19 04:26 Blast Cells # 0.0 K/mm3 08/01/19 04:26 WBC Morphology Not Reportable 08/01/19 04:26 Hypersegmented Neuts Not Reportable 08/01/19 04:26 Hyposegmented Neuts Not Reportable 08/01/19 04:26 Hypogranular Neuts Not Reportable 08/01/19 04:26 Smudge Cells Not Reportable 08/01/19 04:26 Toxic Granulation Not Reportable 08/01/19 04:26 Toxic Vacuolation Not Reportable 08/01/19 04:26 Dohle Bodies Not Reportable 08/01/19 04:26 Pelger-Huet Anomaly Not Reportable 08/01/19 04:26 Pao Rods Not Reportable 08/01/19 04:26 Platelet Estimate Consistent w auto 08/01/19 04:26 Clumped Platelets Not Reportable 08/01/19 04:26 Plt Clumps, EDTA Not Reportable 08/01/19 04:26 Large Platelets Not Reportable 08/01/19 04:26 Giant Platelets Not Reportable 08/01/19 04:26 Platelet Satelliting Not Reportable 08/01/19 04:26 Plt Morphology Comment Not Reportable 08/01/19 04:26 RBC Morphology Not Reportable 08/01/19 04:26 Dimorphic RBCs Not Reportable 08/01/19 04:26 Polychromasia Not Reportable 08/01/19 04:26 Hypochromasia 2+ 08/01/19 04:26 Poikilocytosis Not Reportable 08/01/19 04:26 Anisocytosis 1+ 08/01/19 04:26 Microcytosis Not Reportable 08/01/19 04:26 Macrocytosis Not Reportable 08/01/19 04:26 Spherocytes Not Reportable 08/01/19 04:26 Pappenheimer Bodies Not Reportable 08/01/19 04:26 Sickle Cells Not Reportable 08/01/19 04:26 Target Cells Few 08/01/19 04:26 Tear Drop Cells Not Reportable 08/01/19 04:26 Ovalocytes Not Reportable 08/01/19 04:26 Helmet Cells Not Reportable 08/01/19 04:26 [place]-Merna Bodies Not Reportable 08/01/19 04:26 Elaine Rings Not Reportable 08/01/19 04:26 [place] Cells Not Reportable 08/01/19 04:26 Bite Cells Not Reportable 08/01/19 04:26 Crenated Cell Not Reportable 08/01/19 04:26 Elliptocytes Not Reportable 08/01/19 04:26 Acanthocytes (Spur) Not Reportable 08/01/19 04:26 Rouleaux Not Reportable 08/01/19 04:26 Hemoglobin C Crystals Not Reportable 08/01/19 04:26 Schistocytes Not Reportable 08/01/19 04:26 Malaria parasites Not Reportable 08/01/19 04:26 Chung Bodies Not Reportable 08/01/19 04:26 Hem Pathologist Commnt No 08/01/19 04:26 Sodium 138 mmol/L (137-145) 07/31/19 05:18 Potassium 3.8 mmol/L (3.6-5.0) 07/31/19 05:18 Chloride 109.6 mmol/L (98-107) H 07/31/19 05:18 Carbon Dioxide 19 mmol/L (22-30) L 07/31/19 05:18 Anion Gap 13 mmol/L 07/31/19 05:18 BUN 25 mg/dL (7-17) H 07/31/19 05:18 Creatinine 0.7 mg/dL (0.7-1.2) 07/31/19 05:18 Estimated GFR > 60 ml/min 07/31/19 05:18 BUN/Creatinine Ratio 36 % 07/31/19 05:18 Glucose 120 mg/dL (65-100) H 07/31/19 05:18 POC Glucose 130 (70-105) H 08/01/19 16:38 Lactic Acid 1.80 mmol/L (0.7-2.0) 07/28/19 15:16 Calcium 8.2 mg/dL (8.4-10.2) L 07/31/19 05:18 Phosphorus 2.50 mg/dL (2.5-4.5) 07/31/19 05:18 Magnesium 2.10 mg/dL (1.7-2.3) 07/31/19 05:18 Total Bilirubin 0.70 mg/dL (0.1-1.2) 07/29/19 10:26 AST 9 units/L (5-40) 07/29/19 10:26 ALT < 5 units/L (7-56) L 07/29/19 10:26 Alkaline Phosphatase 39 units/L (35-129) 07/29/19 10:26 Ammonia 21.0 umol/L (25-60) L 07/28/19 13:15 Total Creatine Kinase < 7 units/L (30-135) L 07/28/19 13:15 CK-MB (CK-2) < 1.0 ng/mL (0.0-4.0) 07/28/19 13:15 CK-MB (CK-2) Rel Index 0.0 (0-4) 07/28/19 13:15 Troponin T < 0.010 ng/mL (0.00-0.029) 07/28/19 13:15 Total Protein 6.3 g/dL (6.3-8.2) 07/29/19 10:26 Albumin 2.8 g/dL (3.9-5) L 07/29/19 10:26 Albumin/Globulin Ratio 0.8 % 07/29/19 10:26 Urine Color Vanessa (Yellow) 07/28/19 Unknown Urine Turbidity Clear (Clear) 07/28/19 Unknown Urine pH 5.0 (5.0-7.0) 07/28/19 Unknown Ur Specific [place] 1.019 (1.003-1.030) 07/28/19 Unknown Urine Protein <15 mg/dl mg/dL (Negative) 07/28/19 Unknown Urine Glucose (UA) Neg mg/dL (Negative) 07/28/19 Unknown Urine Ketones Neg mg/dL (Negative) 07/28/19 Unknown Urine Blood Neg (Negative) 07/28/19 Unknown Urine Nitrite Neg (Negative) 07/28/19 Unknown Urine Bilirubin Neg (Negative) 07/28/19 Unknown Urine Urobilinogen < 2.0 mg/dL (<2.0) 07/28/19 Unknown Ur Leukocyte Esterase Neg (Negative) 07/28/19 Unknown Urine WBC (Auto) < 1.0 /HPF (0.0-6.0) 07/28/19 Unknown Urine RBC (Auto) < 1.0 /HPF (0.0-6.0) 07/28/19 Unknown U Epithel Cells (Auto) 1.0 /HPF (0-13.0) 07/28/19 Unknown Urine Mucus Few /HPF 07/28/19 Unknown Blood Type O POSITIVE 07/31/19 11:50 Antibody Screen Negative 07/31/19 11:50 Crossmatch See Detail 07/31/19 11:50 Active Medications - Current Medications Current Medications: Generic Name Dose Route Start Last Admin Trade Name Freq PRN Reason Stop Dose Admin Acetaminophen 500 mg 07/29/19 12:00 08/01/19 20:07 Tylenol PO 500 mg Q6HR XOCHITL Administration Acetaminophen/Hydrocodone Bitart 1 each 07/29/19 08:06 08/01/19 04:11 [place] 5/325 PO 1 each Q6HR PRN Administration Pain, Moderate (4-6) Amlodipine Besylate 5 mg 07/29/19 10:00 08/01/19 09:45 Amlodipine PO 5 mg DAILY XOCHITL Administration Furosemide 40 mg 08/01/19 10:00 08/01/19 09:46 Lasix IV 40 mg QDAY XOCHITL Administration Hydromorphone HCl 0.5 mg 07/28/19 18:10 08/01/19 11:16 Dilaudid IV 0.5 mg Q3H PRN Administration Pain , Severe (7-10) Metronidazole 500 mg in 100 mls @ 100 mls/hr 07/30/19 08:00 08/01/19 15:06 Flagyl 500 Mg/100 Ml IV 100 mls/hr Q8HR XOCHITL Administration Cefepime HCl 2 gm in 100 mls @ 200 mls/hr 07/30/19 19:00 08/01/19 11:16 Cefepime/Ns 2 Gm/100 Ml IV 200 mls/hr Q12H XOCHITL Administration Protocol Insulin Human Lispro 0 unit 07/29/19 07:30 08/01/19 16:32 Humalog SUB-Q Not Given ACHS [facility] Protocol Isosorbide Mononitrate 30 mg 07/29/19 10:00 08/01/19 09:45 Imdur PO 30 mg QDAY XOCHITL Administration Polyethylene Glycol 17 gm 07/29/19 10:00 08/01/19 09:47 Miralax 3350 PO 17 gm QDAY XOCHITL Administration Venlafaxine HCl 75 mg 07/29/19 10:00 08/01/19 09:45 Effexor PO 75 mg BID XOCHITL Administration Nutrition/Malnutrition Assess - Dietary Evaluation Nutrition/Malnutrition Findings: Nutrition Notes Start: 07/29/19 12:39 Freq: Status: Active Protocol: Document 08/01/19 11:35 LM (Rec: 08/01/19 11:43 LM [id number]) Nutrition Notes Initial or Follow up Reassessment Current Diagnosis Diabetes,Hypertension Other Pertinent Diagnosis Myelodysplastic syndrome, Hx bone CA, Sigmoid diverticulitis Current Diet Clear liquid Labs/Tests Reviewed Pertinent Medications Reviewed Height 5 ft 2 in Weight 53.7 kg [place] Body Weight (kg) 50.00 BMI 21.6 Weight change and time frame 28% Subjective/Other Information Pt stated she is tolerating clear liquids and likes Ensure clear. Pt consumed about 60% of diet this AM. Percent of energy/protein needs met: 36%/27% Burn Absent Trauma Absent Minimum of two criteria Yes Energy Intake (non-severe) <75% Estimated Energy Requirement >7 days Interpretation of Weight Loss (severe) >10% in 6 months Muscle Mass Mild Depletion (non-severe) #2 Nutrition Diagnosis Underweight Diagnosis Progress(for reassessment Continues documentation) #1 Nutrition Diagnosis Malnutrition Diagnosis Progress(for reassessment Continues documentation) Is patient on ventilator? No Is Patient Ambulatory and/or Out of Bed No REE-([facility]-confined to bed) 1171.140 Kcal/Kg value to use for calculation 31 Approximate Energy Requirements Using 1665 kcal/Kg Calculation Used for Recommendations Kcal/kg Additional Notes Protein Needs: 64-81g (1.2-1. 5g/kg) Fluid Needs: 1 ml/kcal Nutrition Intervention Change Diet Order: Advance diet when medically feasible Add Supplement/Snack (indicate name/kcal Ensure Clear 1 daily /protein ) Provides kCal: 240 Provides Protein (gm) 8 Goal #1 Advance diet when medically feasible Anticipated Discharge Needs: Unable to determine at this time Follow-Up By: 08/03/19 Additional Comments Follow for PO and ONS intakes
[2019-08-02] MEDS: HYDROcodone/ACETAMINOPHEN 5-325 MG TAB PO PRN ×2 (04:21→22:21)
[2019-08-02] MEDS: ACETAMINOPHEN 500 MG TAB PO SCH ×3 (05:32→17:50)
[2019-08-02] MEDS: metroNIDAZOLE/NS 500 MG/100 ML 500 MG/100 ML BAG IV SCH ×3 (05:34→22:21)
[2019-08-02 06:47] LABS: Mean Corpuscular HGB Conc 34 % (30-34); Mean Corpuscular Volume 89 fl (79-97); Red Blood Count 1.86 M/mm3 (3.65-5.03); Red Cell Distribution Width 16.7 % (13.2-15.2)
[2019-08-02 06:50] LABS: BUN/Creatinine Ratio 46; Blood Urea Nitrogen 32 mg/dL (7-17); Calcium 8.3 mg/dL (8.4-10.2); Hemolysis Index 3
--- NOTE | 2019-08-02 07:07 | Hem/Onc Progress Note ---
Assessment and Plan 1. Anemia, leukopenia, thrombocytopenia, severe. Transfusion support as needed. In spite of transfusion, the patient's counts have not been improving. There was a plan for a bone marrow biopsy. This could not be done as an inpatient status, so I was planning to do as an outpatient; however, she did not keep her appointment. She is on reverse isolation. I am not sure what the long-term plan will be, which will help the patient. She has had received chemotherapy for her myelodysplastic syndrome, it does not appear to be doing any good. I am not sure if she will be a candidate for bone marrow transplant evaluation with such severe cytopenia. Last bone marrow biopsy was done in this year of March, which showed 90% to 100% cellularity with myelodysplastic syndrome. 2. History of splenomegaly with spleen lesions. 3. History of methicillin-resistant Staphylococcus aureus. 4. History of diabetes. 5. History of hypertension. I will follow the patient during inpatient stay. Over weekend I had D/W ELDEST DAUGHTER - reg pt - poor prognosis - need for repeat BMBx as IP or OP - [facility] referral as OP pt has had 3 sessions of chemo - with not much response - 4 sessions of chemo are advised - but pt has severe cytopenias 08/02 - d/w Dr Simmons - pt has hb > 6 - OP follow up an option - once functionally better I will do BMBx as OP I had tried to do BMBX as IP - was not successful - IR did not do same- could this be ? AML or persistent MDS P blood flow ordered pt has cytopenia - but numbers are not improvimng inspite of GCSF - or transfusion - Patient Problems (1) Myelodysplastic syndrome Current Visit: No Status: Chronic Subjective Date of service: 08/02/19 Principal diagnosis: MDS Interval history: no bleeding Objective - Exam Narrative Exam: Pain - none General appearance - on o2 Performance status - limited self care Eyes - no icterus, ENT - no bleeding LNs cervical not palpable Neck - no LN Respiratory Normal Breath sounds - CTA anteriorly CVS S1 S2 + Extremities no edema General GI Soft - SPLEEN + Rectal deferred female - deferred Skin warm Musculoskeletal moves limbs Neurologically follows commands - Constitutional Vitals: Last Vital Signs Temp 99.8 F H 08/02/19 03:42 Pulse 76 08/02/19 04:00 Resp 19 08/02/19 05:32 BP 118/53 08/02/19 04:00 Pulse Ox 95 08/02/19 04:00 - Labs Lab Results: Laboratory Results - last 24 hr 08/01/19 08/01/19 08/01/19 08:34 11:39 16:38 Sodium Potassium Chloride Carbon Dioxide Anion Gap BUN Creatinine Estimated GFR BUN/Creatinine Ratio Glucose POC Glucose 178 H 186 H 130 H Calcium 08/01/19 08/02/19 22:02 05:56 Sodium 139 Potassium 3.5 L Chloride 108.6 H Carbon Dioxide 20 L Anion Gap 14 BUN 32 H Creatinine 0.7 Estimated GFR > 60 BUN/Creatinine Ratio 46 Glucose 111 H POC Glucose 164 H Calcium 8.3 L Medications & Allergies - Medications Allergies/Adverse Reactions: Allergies No Known Allergies Allergy (Verified 06/06/19 08:16) Home Medications: Home Medications Medication Instructions Recorded Confirmed Last Taken Type Acetaminophen [Acetaminophen TAB] 500 mg PO Q6HR 05/26/19 07/30/19 07/13/19 History Venlafaxine [Effexor] 75 mg PO BID 05/26/19 07/30/19 07/13/19 History Amlodipine Besylate [Norvasc] 5 mg PO DAILY #30 tablet 05/28/19 07/30/19 07/13/19 Rx HYDROcodone/APAP 5-325 [[place] 1 each PO Q6HR PRN #10 tablet 05/28/19 07/30/19 07/13/19 Rx 5-325 mg TAB] Loratadine [Claritin] 10 mg PO DAILY #30 tablet 05/28/19 07/30/19 07/13/19 Rx Metformin HCl [metFORMIN] 1,000 mg PO BID #60 tablet 05/28/19 07/30/19 07/13/19 Rx Polyethylene Glycol 3350 [Miralax 17 gm PO QDAY #30 powd.pack 05/28/19 07/30/19 07/13/19 Rx 3350] ISOSORBIDE MONOnitrate [Imdur ER] 30 mg PO QDAY #30 tablet 07/01/19 07/30/19 07/13/19 Rx levoFLOXacin [Levaquin] 750 mg PO QDAY #8 tablet 07/20/19 07/30/19 Unknown Rx metroNIDAZOLE [Flagyl] 500 mg PO Q8HR #24 tablet 07/20/19 07/30/19 Unknown Rx Active Medications: Generic Name Dose Route Start Last Admin Trade Name Freq PRN Reason Stop Dose Admin Acetaminophen 500 mg 07/29/19 12:00 08/02/19 05:32 Tylenol PO 500 mg Q6HR XOCHITL Administration Acetaminophen/Hydrocodone Bitart 1 each 07/29/19 08:06 08/02/19 04:21 [place] 5/325 PO 1 each Q6HR PRN Administration Pain, Moderate (4-6) Amlodipine Besylate 5 mg 07/29/19 10:00 08/01/19 09:45 Amlodipine PO 5 mg DAILY XOCHITL Administration Furosemide 40 mg 08/01/19 10:00 08/01/19 09:46 Lasix IV 40 mg QDAY XOCHITL Administration Hydromorphone HCl 0.5 mg 07/28/19 18:10 08/01/19 11:16 Dilaudid IV 0.5 mg Q3H PRN Administration Pain , Severe (7-10) Metronidazole 500 mg in 100 mls @ 100 mls/hr 07/30/19 08:00 08/02/19 05:34 Flagyl 500 Mg/100 Ml IV 100 mls/hr Q8HR XOCHITL Administration Cefepime HCl 2 gm in 100 mls @ 200 mls/hr 07/30/19 19:00 08/01/19 21:37 Cefepime/Ns 2 Gm/100 Ml IV 200 mls/hr Q12H XOCHITL Administration Protocol Insulin Human Lispro 0 unit 07/29/19 07:30 08/01/19 23:44 Humalog SUB-Q 2 unit ACHS XOCHITL Administration Protocol Isosorbide Mononitrate 30 mg 07/29/19 10:00 08/01/19 09:45 Imdur PO 30 mg QDAY XOCHITL Administration Polyethylene Glycol 17 gm 07/29/19 10:00 08/01/19 09:47 Miralax 3350 PO 17 gm QDAY XOCHITL Administration Venlafaxine HCl 75 mg 07/29/19 10:00 08/01/19 21:37 Effexor PO 75 mg BID XOCHITL Administration
[2019-08-02 07:29] LABS: Hemoglobin 5.6 gm/dl (10.1-14.3)
[2019-08-02 07:30] LABS: Hematocrit 16.6 % (30.3-42.9); Platelet Count 7 K/mm3 (140-440)
[2019-08-02] MEDS: INSULIN LISPRO 100 UNIT/ML SUB-Q SCH ×4 (08:09→22:32)
[2019-08-02] MEDS ORDERED: SODIUM CHLORIDE 0.9% 500 ML 500 ML IV ONE ×2 (08:56→11:00)
[2019-08-02] MEDS: amLODIPine 5 MG TAB PO SCH (09:41)
[2019-08-02] MEDS: CEFEPIME/NS 2 GM/100 ML 2 GM/100 ML BAG IV SCH ×2 (09:41→22:20)
[2019-08-02] MEDS: POLYETHYLENE GLYCOL 3350 17 GM POWDER PO SCH (09:41)
[2019-08-02] MEDS: VENLAFAXINE 75 MG TAB PO SCH ×2 (09:41→22:21)
[2019-08-02] MEDS: FUROSEMIDE 40 MG/4 ML INJ IV SCH (09:42)
[2019-08-02] MEDS: HYDROmorphone 1 MG/1 ML INJ IV PRN ×2 (09:44→14:11)
--- NOTE | 2019-08-02 11:36 | Progress Note ---
Assessment and Plan /Refractory Pancytopenia; secondary to myelodysplastic syndrome ordered another unit of PRBC and platelets Total 5 units of PRBC and 4 units platelets transfused, neutropenia precautions s/p Filgastrin per hematology, Discussed with family and Dr gonsales - need outpt f/u for BM biopsy and further treatment planning very poor prognosis, family does not want hospice or DNR /Sigmoid diverticulitis; continue antibiotics Surgical evaluation noted and appreciated Started clear liquids - advance as tolerated, recommend outpatient colonoscopy Transition to oral antibiotics upon discharge /Acute Sepsis; secondary to sigmoid diverticulitis cont antibiotics, ID following /Myelodysplastic syndrome; Immuno suppressive state Management per hematology, need f/u outpt /Hypertension; moderate control, cont antihypertensives and PRN medications, /-Diabetes mellitus; Manage with Accu-Chek SSI and ADA diet, /Moderate malnutrition and hypoalbuminemia; nutrition supplements and supportive care /-DVT prophylaxis; SCDs No pharmacologic anticoagulation in view of pancytopenia --Full code Patient is critically ill very poor prognosis Plan of care reviewed with the patient and the family members at the bedside I also discussed with patient's nurse and ballet soloist Critical care time 32 minutes Disposition; d/c tomorrow with HH Brief History 78-year-old female patient with significant past medical history of myelodysplastic syndrome with pancytopenia multiple transfusions in the past was admitted through emergency room with severe anemia severe leukopenia and thrombocytopenia, Patient received multiple PRBC and platelet transfusion. neutropenia precautions placed, Evaluated by hematology oncologist, medications optimized Plan for discharge home with outpt f/u Hospitalist Physical General appearance: Present: mild distress, well-nourished - EENT Eyes: Present: PERRL, EOM intact - Neck Neck: Present: supple, normal ROM - Respiratory Respiratory effort: normal Respiratory: bilateral: diminished, negative: rales, rhonchi, wheezing - Cardiovascular Rhythm: regular Heart Sounds: Present: S1 & S2 - Extremities Extremities: no ischemia, No edema - Abdominal General gastrointestinal: soft, non-tender, non-distended, normal bowel sounds - Integumentary Integumentary: Present: clear, warm - Psychiatric Psychiatric: appropriate mood/affect, cooperative - Neurologic Neurologic: CNII-XII intact Subjective Date of service: 08/02/19 Principal diagnosis: MDS Interval history: Patient seen and examined. Medical records and medication list reviewed. No acute event overnight noted by the RN. Patient complains of generalized weakness, Discussed plan of care at bedside with patient, hard daughter and son-in-law. Also discussed with Dr. Gonsales - plan to discharge home after another unit of packed RBC and platelet transfusion Objective - Constitutional Vitals: Vital Signs - 12hr 08/01/19 08/02/19 08/02/19 23:45 00:00 01:00 Temperature Pulse Rate 87 85 Pulse Rate [ 87 From Monitor] Respiratory 19 21 21 Rate Blood Pressure 118/52 131/55 O2 Sat by Pulse 96 94 Oximetry 08/02/19 08/02/19 08/02/19 02:00 03:00 03:42 Temperature 99.8 F H Pulse Rate 76 76 Pulse Rate [ From Monitor] Respiratory 23 19 Rate Blood Pressure 115/48 104/44 O2 Sat by Pulse Oximetry 08/02/19 08/02/19 08/02/19 04:00 04:21 05:00 Temperature Pulse Rate 85 83 Pulse Rate [ 76 From Monitor] Respiratory 21 14 20 Rate Blood Pressure 118/53 118/49 O2 Sat by Pulse 95 92 Oximetry 08/02/19 08/02/19 08/02/19 05:32 06:00 07:00 Temperature Pulse Rate 92 H 90 Pulse Rate [ From Monitor] Respiratory 19 17 19 Rate Blood Pressure 122/54 128/61 O2 Sat by Pulse 93 91 Oximetry 08/02/19 08/02/19 08/02/19 08:00 09:00 09:40 Temperature 98.2 F Pulse Rate 85 88 94 H Pulse Rate [ 85 From Monitor] Respiratory 19 12 Rate Blood Pressure 136/62 136/62 131/58 O2 Sat by Pulse 92 Oximetry 08/02/19 08/02/19 08/02/19 09:41 10:00 11:00 Temperature Pulse Rate 96 H 101 H 105 H Pulse Rate [ From Monitor] Respiratory 19 21 Rate Blood Pressure 131/58 129/62 132/63 O2 Sat by Pulse 92 93 Oximetry 08/02/19 11:30 Temperature 97.6 F Pulse Rate 106 H Pulse Rate [ From Monitor] Respiratory 18 Rate Blood Pressure 132/68 O2 Sat by Pulse 95 Oximetry - Labs CBC & Chem 7: 08/02/19 20:54 08/02/19 05:56 Labs: Abnormal lab results 07/31/19 08/01/19 08/01/19 Range/Units 11:50 11:39 16:38 WBC (4.5-11.0) K/mm3 RBC (3.65-5.03) M/mm3 Hgb (10.1-14.3) gm/dl Hct (30.3-42.9) % RDW (13.2-15.2) % Plt Count (140-440) K/mm3 Potassium (3.6-5.0) mmol/L Chloride (98-107) mmol/L Carbon Dioxide (22-30) mmol/L BUN (7-17) mg/dL Glucose (65-100) mg/dL POC Glucose 186 H 130 H (70-105) Calcium (8.4-10.2) mg/dL Crossmatch See Detail 08/01/19 08/02/19 08/02/19 Range/Units 22:02 05:56 05:56 WBC 0.1 L* (4.5-11.0) K/mm3 RBC 1.86 L (3.65-5.03) M/mm3 Hgb 5.6 L* (10.1-14.3) gm/dl Hct 16.6 L* (30.3-42.9) % RDW 16.7 H (13.2-15.2) % Plt Count 7 L* (140-440) K/mm3 Potassium 3.5 L (3.6-5.0) mmol/L Chloride 108.6 H (98-107) mmol/L Carbon Dioxide 20 L (22-30) mmol/L BUN 32 H (7-17) mg/dL Glucose 111 H (65-100) mg/dL POC Glucose 164 H (70-105) Calcium 8.3 L (8.4-10.2) mg/dL Crossmatch 08/02/19 Range/Units 08:16 WBC (4.5-11.0) K/mm3 RBC (3.65-5.03) M/mm3 Hgb (10.1-14.3) gm/dl Hct (30.3-42.9) % RDW (13.2-15.2) % Plt Count (140-440) K/mm3 Potassium (3.6-5.0) mmol/L Chloride (98-107) mmol/L Carbon Dioxide (22-30) mmol/L BUN (7-17) mg/dL Glucose (65-100) mg/dL POC Glucose 127 H (70-105) Calcium (8.4-10.2) mg/dL Crossmatch
[2019-08-02 11:55] LABS: Basophils % (Manual) 0 % (0.0-1.8); Eosinophils % (Manual) 0 % (0.0-4.3); Hypochromasia 1+; Platelet Estimate Consistent w Auto; Total Cells Counted 10
--- NOTE | 2019-08-02 13:36 | Progress Note ---
Assessment and Plan Cultures: 07/28/19 blood culture: NGTD 07/28/19 urine culture: NGTD A/P: 78 yo F PMHx MDS, metastatic stomach cancer, T2Dm, HTN admitted with recurrent diverticulitis. 1. Acute sepsis - present with fevers and neutropenia. Fevers have resolved. Neutropenia persists secondary to her refractory MDS. Source of sepsis likely diverticulitis. 2. Acute sigmoid diverticulitis - Recurrent from a couple weeks ago. Continue with cefepime and metronidazole for now. Appreciate surgical consult; continues to improve. Continue medical management. CT with improvement, so no surgical plan. 3. 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 Profound neutropenia: secondary to MDS. Recs: Will continue IV Cefepime and Flagyl while she remains inpatient since she is immunocompromised and remains at risk of relapse. When discharged, will do PO Augmentin 875 mg BID to complete her antibiotic course x 7 more days Overall prognosis remains poor due to her refractory MDS and severe pancytopenia. Dara Crook MD, FACP [facility] ([facility] M: [phone] O: [phone] F: [phone] Subjective Date of service: 08/02/19 Principal diagnosis: MDS Interval history: Had no fever. No new complaints. no abdominal pain. No vomiting. Objective - Exam Narrative Exam: Constitutional: Alert, cooperative. No acute distress Head, Ears, Nose: Normocephalic, atraumatic. External ears, nose normal Eyes: Conjunctivae/corneas clear. No icterus. No ptosis. Neck: Supple, no meningeal signs Cardiovascular: S1, S2 normal. Respiratory: Good air entry, clear to auscultation bilaterally GI: Soft, some guarding present, but no LLQ tenderness elicited; bowel sounds +. No peritoneal signs Musculoskeletal: No pedal edema, no cyanosis. Right index finger with no drainage, non tender Skin: No rash or abscess Hem/Lymphatic: No palpable cervical or supraclavicular nodes. No lymphangitis Psych: Mood ok. Affect normal Neurological: Awake, alert, oriented. No gross abnormality - Constitutional Vitals: Vital Signs Temp Pulse Resp BP Pulse Ox 97.7 F 91 H 17 141/63 97 08/02/19 13:15 08/02/19 13:15 08/02/19 13:15 08/02/19 13:15 08/02/19 13:15 Temperature -Last 24 Hours Temperature 97.7 F Temperature 98.2 F Temperature 98.5 F Temperature 97.9 F Temperature 98.4 F Temperature 97.6 F Temperature 98.2 F Temperature 99.8 F Temperature 99.1 F Temperature 99.6 F - Labs CBC & Chem 7: 08/02/19 05:56 08/02/19 05:56 Labs: Abnormal lab results 07/31/19 08/01/19 08/01/19 Range/Units 11:50 16:38 22:02 WBC (4.5-11.0) K/mm3 RBC (3.65-5.03) M/mm3 Hgb (10.1-14.3) gm/dl Hct (30.3-42.9) % RDW (13.2-15.2) % Plt Count (140-440) K/mm3 Seg Neuts % (Manual) (40.0-70.0) % Lymphocytes % (Manual) (13.4-35.0) % Monocytes % (Manual) (0.0-7.3) % Seg Neutrophils # Man (1.8-7.7) K/mm3 Lymphocytes # (Manual) (1.2-5.4) K/mm3 Potassium (3.6-5.0) mmol/L Chloride (98-107) mmol/L Carbon Dioxide (22-30) mmol/L BUN (7-17) mg/dL Glucose (65-100) mg/dL POC Glucose 130 H 164 H (70-105) Calcium (8.4-10.2) mg/dL Crossmatch See Detail 08/02/19 08/02/19 08/02/19 Range/Units 05:56 05:56 08:16 WBC 0.1 L* (4.5-11.0) K/mm3 RBC 1.86 L (3.65-5.03) M/mm3 Hgb 5.6 L* (10.1-14.3) gm/dl Hct 16.6 L* (30.3-42.9) % RDW 16.7 H (13.2-15.2) % Plt Count 7 L* (140-440) K/mm3 Seg Neuts % (Manual) 0 L (40.0-70.0) % Lymphocytes % (Manual) 90.0 H (13.4-35.0) % Monocytes % (Manual) 10.0 H (0.0-7.3) % Seg Neutrophils # Man 0.0 L (1.8-7.7) K/mm3 Lymphocytes # (Manual) 0.1 L (1.2-5.4) K/mm3 Potassium 3.5 L (3.6-5.0) mmol/L Chloride 108.6 H (98-107) mmol/L Carbon Dioxide 20 L (22-30) mmol/L BUN 32 H (7-17) mg/dL Glucose 111 H (65-100) mg/dL POC Glucose 127 H (70-105) Calcium 8.3 L (8.4-10.2) mg/dL Crossmatch 08/02/19 Range/Units 11:49 WBC (4.5-11.0) K/mm3 RBC (3.65-5.03) M/mm3 Hgb (10.1-14.3) gm/dl Hct (30.3-42.9) % RDW (13.2-15.2) % Plt Count (140-440) K/mm3 Seg Neuts % (Manual) (40.0-70.0) % Lymphocytes % (Manual) (13.4-35.0) % Monocytes % (Manual) (0.0-7.3) % Seg Neutrophils # Man (1.8-7.7) K/mm3 Lymphocytes # (Manual) (1.2-5.4) K/mm3 Potassium (3.6-5.0) mmol/L Chloride (98-107) mmol/L Carbon Dioxide (22-30) mmol/L BUN (7-17) mg/dL Glucose (65-100) mg/dL POC Glucose 227 H (70-105) Calcium (8.4-10.2) mg/dL Crossmatch
[2019-08-02 21:39] LABS: Hematocrit 17.9 % (30.3-42.9); Hemoglobin 6.3 gm/dl (10.1-14.3); Mean Corpuscular Volume 87 fl (79-97); Red Blood Count 2.06 M/mm3 (3.65-5.03)
[2019-08-02 21:40] LABS: Mean Corpuscular HGB Conc 35 % (30-34); Platelet Count 12 K/mm3 (140-440); Red Cell Distribution Width 16.2 % (13.2-15.2)
[2019-08-03] MEDS: ACETAMINOPHEN 500 MG TAB PO SCH ×3 (00:35→12:58)
[2019-08-03] MEDS: metroNIDAZOLE/NS 500 MG/100 ML 500 MG/100 ML BAG IV SCH ×2 (05:29→13:02)
--- NOTE | 2019-08-03 07:30 | Hem/Onc Progress Note ---
Assessment and Plan 1. Anemia, leukopenia, thrombocytopenia, severe. Transfusion support as needed. In spite of transfusion, the patient's counts have not been improving. There was a plan for a bone marrow biopsy. This could not be done as an inpatient status, so I was planning to do as an outpatient; however, she did not keep her appointment. She is on reverse isolation. I am not sure what the long-term plan will be, which will help the patient. She has had received chemotherapy for her myelodysplastic syndrome, it does not appear to be doing any good. I am not sure if she will be a candidate for bone marrow transplant evaluation with such severe cytopenia. Last bone marrow biopsy was done in this year of March, which showed 90% to 100% cellularity with myelodysplastic syndrome. 2. History of splenomegaly with spleen lesions. 3. History of methicillin-resistant Staphylococcus aureus. 4. History of diabetes. 5. History of hypertension. I will follow the patient during inpatient stay. Over weekend I had D/W ELDEST DAUGHTER - reg pt - poor prognosis - need for repeat BMBx as IP or OP - [place] referral as OP pt has had 3 sessions of chemo - with not much response - 4 sessions of chemo are advised - but pt has severe cytopenias 08/03 - d/w Dr Simmons - pt has hb > 6 - OP follow up an option - once functionally better I will do BMBx as OP I had tried to do BMBX as IP - was not successful - IR did not do same- could this be ? AML or persistent MDS P blood flow ordered pt has cytopenia - but numbers are not improvimng inspite of GCSF - or transfusion d/w daughter - [phone] - Patient Problems (1) Myelodysplastic syndrome Current Visit: No Status: Chronic Subjective Date of service: 08/03/19 Principal diagnosis: mds Interval history: no bleeding Objective - Exam Narrative Exam: Pain - none General appearance - on o2 Performance status - limited self care Eyes - no icterus, ENT - no bleeding LNs cervical not palpable Neck - no LN Respiratory Normal Breath sounds - CTA anteriorly CVS S1 S2 + Extremities no edema General GI Soft - SPLEEN + Rectal deferred female - deferred Skin warm Musculoskeletal moves limbs Neurologically follows commands - Constitutional Vitals: Last Vital Signs Temp 97.9 F 08/03/19 04:00 Pulse 91 H 11/13/19 06:00 Resp 24 08/03/19 06:00 BP 147/79 08/03/19 06:00 Pulse Ox 97 08/03/19 06:00 - Labs Lab Results: Laboratory Results - last 24 hr 07/31/19 08/02/19 08/02/19 11:50 05:56 08:16 WBC 0.1 L* RBC 1.86 L Hgb 5.6 L* Hct 16.6 L* MCV 89 MCH 30 MCHC 34 RDW 16.7 H Plt Count 7 L* Lymph % (Auto) Skein Bander Add Manual Diff Complete Total Counted 10 Seg Neutrophils % Skein Bander Seg Neuts % (Manual) 0 L Band Neutrophils % 0 Lymphocytes % (Manual) 90.0 H Reactive Lymphs % (Man) 0 Monocytes % (Manual) 10.0 H Eosinophils % (Manual) 0 Basophils % (Manual) 0 Metamyelocytes % 0 Myelocytes % 0 Promyelocytes % 0 Blast Cells % 0 Nucleated RBC % Not Reportable Seg Neutrophils # Man 0.0 L Band Neutrophils # 0.0 Lymphocytes # (Manual) 0.1 L Abs React Lymphs (Man) 0.0 Monocytes # (Manual) 0.0 Eosinophils # (Manual) 0.0 Basophils # (Manual) 0.0 Metamyelocytes # 0.0 Myelocytes # 0.0 Promyelocytes # 0.0 Blast Cells # 0.0 WBC Morphology Not Reportable Hypersegmented Neuts Not Reportable Hyposegmented Neuts Not Reportable Hypogranular Neuts Not Reportable Smudge Cells Not Reportable Toxic Granulation Not Reportable Toxic Vacuolation Not Reportable Dohle Bodies Not Reportable Pelger-Huet Anomaly Not Reportable Pao Rods Not Reportable Platelet Estimate Consistent w auto Clumped Platelets Not Reportable Plt Clumps, EDTA Not Reportable Large Platelets Not Reportable Giant Platelets Not Reportable Platelet Satelliting Not Reportable Plt Morphology Comment Not Reportable RBC Morphology Not Reportable Dimorphic RBCs Not Reportable Polychromasia Not Reportable Hypochromasia 1+ Poikilocytosis Not Reportable Anisocytosis Not Reportable Microcytosis Few Macrocytosis Not Reportable Spherocytes Not Reportable Pappenheimer Bodies Not Reportable Sickle Cells Not Reportable Target Cells Not Reportable Tear Drop Cells Not Reportable Ovalocytes Not Reportable Helmet Cells Not Reportable [place] Bodies Not Reportable [place] Rings Not Reportable [place] Cells Not Reportable Bite Cells Not Reportable Crenated Cell Not Reportable Elliptocytes Not Reportable Acanthocytes (Spur) Not Reportable Rouleaux Not Reportable Hemoglobin C Crystals Not Reportable Schistocytes Not Reportable Malaria parasites Not Reportable Chung Bodies Not Reportable Hem Pathologist Commnt No POC Glucose 127 H Blood Type O POSITIVE Antibody Screen Negative Crossmatch See Detail 08/02/19 08/02/19 08/02/19 11:49 16:48 20:54 WBC 0.5 L* RBC 2.06 L Hgb 6.3 L Hct 17.9 L* MCV 87 MCH 31 MCHC 35 H RDW 16.2 H Plt Count 12 L* Lymph % (Auto) Add Manual Diff Total Counted Seg Neutrophils % Seg Neuts % (Manual) Band Neutrophils % Lymphocytes % (Manual) Reactive Lymphs % (Man) Monocytes % (Manual) Eosinophils % (Manual) Basophils % (Manual) Metamyelocytes % Myelocytes % Promyelocytes % Blast Cells % Nucleated RBC % Seg Neutrophils # Man Band Neutrophils # Lymphocytes # (Manual) Abs React Lymphs (Man) Monocytes # (Manual) Eosinophils # (Manual) Basophils # (Manual) Metamyelocytes # Myelocytes # Promyelocytes # Blast Cells # WBC Morphology Hypersegmented Neuts Hyposegmented Neuts Hypogranular Neuts Smudge Cells Toxic Granulation Toxic Vacuolation Dohle Bodies Pelger-Huet Anomaly Pao Rods Platelet Estimate Clumped Platelets Plt Clumps, EDTA Large Platelets Giant Platelets Platelet Satelliting Plt Morphology Comment RBC Morphology Dimorphic RBCs Polychromasia Hypochromasia Poikilocytosis Anisocytosis Microcytosis Macrocytosis Spherocytes Pappenheimer Bodies Sickle Cells Target Cells Tear Drop Cells Ovalocytes Helmet Cells [place] Bodies [place] Rings Manuel Cells Bite Cells Crenated Cell Elliptocytes Acanthocytes (Spur) Rouleaux Hemoglobin C Crystals Schistocytes Malaria parasites Chung Bodies Hem Pathologist Commnt POC Glucose 227 H 131 H Blood Type Antibody Screen Crossmatch 08/02/19 21:55 WBC RBC Hgb Hct MCV MCH MCHC RDW Plt Count Lymph % (Auto) Add Manual Diff Total Counted Seg Neutrophils % Seg Neuts % (Manual) Band Neutrophils % Lymphocytes % (Manual) Reactive Lymphs % (Man) Monocytes % (Manual) Eosinophils % (Manual) Basophils % (Manual) Metamyelocytes % Myelocytes % Promyelocytes % Blast Cells % Nucleated RBC % Seg Neutrophils # Man Band Neutrophils # Lymphocytes # (Manual) Abs React Lymphs (Man) Monocytes # (Manual) Eosinophils # (Manual) Basophils # (Manual) Metamyelocytes # Myelocytes # Promyelocytes # Blast Cells # WBC Morphology Hypersegmented Neuts Hyposegmented Neuts Hypogranular Neuts Smudge Cells Toxic Granulation Toxic Vacuolation Dohle Bodies Pelger-Huet Anomaly Pao Rods Platelet Estimate Clumped Platelets Plt Clumps, EDTA Large Platelets Giant Platelets Platelet Satelliting Plt Morphology Comment RBC Morphology Dimorphic RBCs Polychromasia Hypochromasia Poikilocytosis Anisocytosis Microcytosis Macrocytosis Spherocytes Pappenheimer Bodies Sickle Cells Target Cells Tear Drop Cells Ovalocytes Helmet Cells [place] Bodies [place] Rings [place] Cells Bite Cells Crenated Cell Elliptocytes Acanthocytes (Spur) Rouleaux Hemoglobin C Crystals Schistocytes Malaria parasites Chung Bodies Hem Pathologist Commnt POC Glucose 116 H Blood Type Antibody Screen Crossmatch Medications & Allergies - Medications Allergies/Adverse Reactions: Allergies No Known Allergies Allergy (Verified 06/06/19 08:16) Home Medications: Home Medications Medication Instructions Recorded Confirmed Last Taken Type Acetaminophen [Acetaminophen TAB] 500 mg PO Q6HR 05/26/19 07/30/19 07/13/19 History Venlafaxine [Effexor] 75 mg PO BID 05/26/19 07/30/19 07/13/19 History Amlodipine Besylate [Norvasc] 5 mg PO DAILY #30 tablet 05/28/19 07/30/19 07/13/19 Rx HYDROcodone/APAP 5-325 [Hope 1 each PO Q6HR PRN #10 tablet 05/28/19 07/30/19 07/13/19 Rx 5-325 mg TAB] Loratadine [Claritin] 10 mg PO DAILY #30 tablet 05/28/19 07/30/19 07/13/19 Rx Metformin HCl [metFORMIN] 1,000 mg PO BID #60 tablet 05/28/19 07/30/19 07/13/19 Rx Polyethylene Glycol 3350 [Miralax 17 gm PO QDAY #30 powd.pack 05/28/19 07/30/19 07/13/19 Rx 3350] ISOSORBIDE MONOnitrate [Imdur ER] 30 mg PO QDAY #30 tablet 07/01/19 07/30/19 07/13/19 Rx levoFLOXacin [Levaquin] 750 mg PO QDAY #8 tablet 07/20/19 07/30/19 Unknown Rx metroNIDAZOLE [Flagyl] 500 mg PO Q8HR #24 tablet 07/20/19 07/30/19 Unknown Rx Active Medications: Generic Name Dose Route Start Last Admin Trade Name Freq PRN Reason Stop Dose Admin Acetaminophen 500 mg 07/29/19 12:00 08/03/19 05:28 Tylenol PO 500 mg Q6HR XOCHITL Administration Acetaminophen/Hydrocodone Bitart 1 each 07/29/19 08:06 08/02/19 22:21 Hope 5/325 PO 1 each Q6HR PRN Administration Pain, Moderate (4-6) Amlodipine Besylate 5 mg 07/29/19 10:00 08/02/19 09:41 Amlodipine PO 5 mg DAILY XOCHITL Administration Furosemide 40 mg 08/01/19 10:00 08/02/19 09:42 Lasix IV 40 mg QDAY XOCHITL Administration Hydromorphone HCl 0.5 mg 07/28/19 18:10 08/02/19 14:11 Dilaudid IV 0.5 mg Q3H PRN Administration Pain , Severe (7-10) Metronidazole 500 mg in 100 mls @ 100 mls/hr 07/30/19 08:00 08/03/19 05:29 Flagyl 500 Mg/100 Ml IV 100 mls/hr Q8HR XOCHITL Administration Cefepime HCl 2 gm in 100 mls @ 200 mls/hr 07/30/19 19:00 08/02/19 22:20 Cefepime/Ns 2 Gm/100 Ml IV 200 mls/hr Q12H XOCHITL Administration Protocol Insulin Human Lispro 0 unit 07/29/19 07:30 08/02/19 22:32 Humalog SUB-Q Not Given ACHS [facility] Protocol Isosorbide Mononitrate 30 mg 07/29/19 10:00 08/02/19 09:40 Imdur PO 30 mg QDAY XOCHITL Administration Polyethylene Glycol 17 gm 07/29/19 10:00 08/02/19 09:41 Miralax 3350 PO 17 gm QDAY XOCHITL Administration Venlafaxine HCl 75 mg 07/29/19 10:00 08/02/19 22:21 Effexor PO 75 mg BID XOCHITL Administration
[2019-08-03] MEDS: INSULIN LISPRO 100 UNIT/ML SUB-Q SCH ×2 (08:00→12:35)
[2019-08-03] MEDS: CEFEPIME/NS 2 GM/100 ML 2 GM/100 ML BAG IV SCH (10:37)
[2019-08-03] MEDS: amLODIPine 5 MG TAB PO SCH (10:38)
[2019-08-03] MEDS: POLYETHYLENE GLYCOL 3350 17 GM POWDER PO SCH (10:39)
[2019-08-03] MEDS: FUROSEMIDE 40 MG/4 ML INJ IV SCH (10:39)
[2019-08-03] MEDS: VENLAFAXINE 75 MG TAB PO SCH (10:39)
--- NOTE | 2019-08-03 10:46 | XRay Report ---
CHEST 1 VIEW INDICATION: SOB. COMPARISON: 07/28/2019 FINDINGS: Support devices: A left PICC line tip is in the inferior aspect of the right atrium and is unchanged compared to the last exam. Heart: Within normal limits. Pulmonary vasculature: The pulmonary vessels are more distinct than on the last exam. Lungs/Pleura: Bilateral upper lobe airspace disease has become more focal. Focal consolidation in the right upper lobe is especially prominent. Some clearing of the right lung base. The left lung base i s clear. No pleural effusion. Additional findings: None. IMPRESSION: 1. Some improvement with more focal residual airspace disease predominantly in the upper lobes. The p attern is more typical of pneumonia than pulmonary edema. Signer Name: Pedro Hart MD Signed: 08/03/2019 10:42 AM Workstation Name: [id number]
--- NOTE | 2019-08-03 11:31 | Progress Note ---
Assessment and Plan Cultures: 07/28/19 blood culture: NGTD 07/28/19 urine culture: NGTD A/P: 78 yo F PMHx MDS, metastatic stomach cancer, T2Dm, HTN admitted with recurrent diverticulitis. 1. Acute sepsis - present with fevers and neutropenia. Fevers have resolved. Neutropenia persists secondary to her refractory MDS. Source of sepsis likely diverticulitis. 2. Acute sigmoid diverticulitis - Recurrent from a couple weeks ago. Continue with cefepime and metronidazole for now. Appreciate surgical consult; continues to improve. Continue medical management. CT with improvement, so no surgical plan. 3. 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 Profound neutropenia: secondary to MDS. Recs: continue IV Cefepime and Flagyl while inpatient, today is day 6 of therapy. Upon discharge, will switch to PO Augmentin Overall prognosis remains poor due to her refractory MDS and severe pancytopenia. Hematology following Dara Crook MD, FACP [facility] ([facility]) M: [phone] O: [phone] F: [phone] Subjective Date of service: 08/03/19 Principal diagnosis: MDS Interval history: No fever. Complains of chronic headache which apparently gets better with pain medicines. Denies any other complaint. No abdominal pain. No vomiting. Objective - Exam Narrative Exam: Constitutional: Alert, cooperative. No acute distress Head, Ears, Nose: Normocephalic, atraumatic. External ears, nose normal Eyes: Conjunctivae/corneas clear. No icterus. No ptosis. Neck: Supple, no meningeal signs Cardiovascular: S1, S2 normal. Respiratory: Good air entry, clear to auscultation bilaterally GI: Soft, some guarding present, but no LLQ tenderness elicited; bowel sounds +. No peritoneal signs Musculoskeletal: No pedal edema, no cyanosis. Right index finger small wound almost healed Skin: No rash or abscess Hem/Lymphatic: No palpable cervical or supraclavicular nodes. No lymphangitis Psych: Mood ok. Affect normal Neurological: Awake, alert, oriented. - Constitutional Vitals: Vital Signs Temp Pulse Resp BP Pulse Ox 97.9 F 90 24 137/74 97 08/03/19 04:00 08/03/19 10:39 08/03/19 06:00 08/03/19 10:39 08/03/19 06:00 Temperature -Last 24 Hours Temperature 97.9 F Temperature 98.6 F Temperature 98.8 F Temperature 99.0 F Temperature 99.1 F Temperature 97.8 F Temperature 98.2 F Temperature 98.2 F Temperature 98.3 F Temperature 98.5 F Temperature 98.3 F Temperature 98.2 F Temperature 98.2 F Temperature 97.8 F Temperature 97.7 F Temperature 98.2 F Temperature 98.5 F Temperature 97.9 F Temperature 98.4 F Temperature 97.6 F - Labs CBC & Chem 7: 08/02/19 20:54 08/02/19 05:56 Labs: Abnormal lab results 07/31/19 08/02/19 08/02/19 Range/Units 11:50 05:56 11:49 WBC (4.5-11.0) K/mm3 RBC (3.65-5.03) M/mm3 Hgb (10.1-14.3) gm/dl Hct (30.3-42.9) % MCHC (30-34) % RDW (13.2-15.2) % Plt Count (140-440) K/mm3 Seg Neuts % (Manual) 0 L (40.0-70.0) % Lymphocytes % (Manual) 90.0 H (13.4-35.0) % Monocytes % (Manual) 10.0 H (0.0-7.3) % Seg Neutrophils # Man 0.0 L (1.8-7.7) K/mm3 Lymphocytes # (Manual) 0.1 L (1.2-5.4) K/mm3 POC Glucose 227 H (70-105) Crossmatch See Detail 08/02/19 08/02/19 08/02/19 Range/Units 16:48 20:54 21:55 WBC 0.5 L* (4.5-11.0) K/mm3 RBC 2.06 L (3.65-5.03) M/mm3 Hgb 6.3 L (10.1-14.3) gm/dl Hct 17.9 L* (30.3-42.9) % MCHC 35 H (30-34) % RDW 16.2 H (13.2-15.2) % Plt Count 12 L* (140-440) K/mm3 Seg Neuts % (Manual) (40.0-70.0) % Lymphocytes % (Manual) (13.4-35.0) % Monocytes % (Manual) (0.0-7.3) % Seg Neutrophils # Man (1.8-7.7) K/mm3 Lymphocytes # (Manual) (1.2-5.4) K/mm3 POC Glucose 131 H 116 H (70-105) Crossmatch 08/03/19 Range/Units 07:54 WBC (4.5-11.0) K/mm3 RBC (3.65-5.03) M/mm3 Hgb (10.1-14.3) gm/dl Hct (30.3-42.9) % MCHC (30-34) % RDW (13.2-15.2) % Plt Count (140-440) K/mm3 Seg Neuts % (Manual) (40.0-70.0) % Lymphocytes % (Manual) (13.4-35.0) % Monocytes % (Manual) (0.0-7.3) % Seg Neutrophils # Man (1.8-7.7) K/mm3 Lymphocytes # (Manual) (1.2-5.4) K/mm3 POC Glucose 125 H (70-105) Crossmatch
[2019-08-03 14:13] VITALS: BP 178/84
--- NOTE | 2019-08-03 14:14 | Discharge Summary ---
Providers - Providers Date of Admission: 07/28/19 13:55 Date of discharge: 08/03/19 Attending physician: CATARINA LAY 07/28/19 21:41 Consult to Physician [CONS] Routine Comment: Consulting Provider: RICARDO SANDOVAL Physician Instructions: Reason For Exam: pancytopenia 07/28/19 21:44 Consult to Physician [CONS] Routine Comment: Consulting Provider: JESSICA BEARD Physician Instructions: Reason For Exam: sepsis Consult to Physician [CONS] Routine Comment: Consulting Provider: EMMY PAZ Physician Instructions: Reason For Exam: sepsis 07/29/19 06:13 Consult to Physician [CONS] Routine Comment: Consulting Provider: SILAS PALACIOS Physician Instructions: Reason For Exam: Sigmoid Diverticulitis 08/03/19 10:34 Physical Therapy Evaluation and Treat [CONS] Routine Comment: Reason For Exam: placement 08/03/19 10:50 Physical Therapy Evaluation and Treat [CONS] Routine Comment: Reason For Exam: placement Hospitalization Condition: Poor Pertinent studies: CT abdomen and pelvis Head CT Chest x-rays Hospital course: 78-year-old female patient with significant past medical history of myelodysp lastic syndrome with pancytopenia multiple transfusions in the past was admitted through emergency room with severe anemia severe leukopenia and thrombocytopenia, Patient received multiple PRBC and platelet transfusion. neutropenia precautions placed, Evaluated by hematology oncologist, medications optimized The patient was discharged home with hospice and outpatient follow-up in stable condition. Discharge diagnosis and mx: /Possible sleep apnea - Per RN documentaion her O2 sat drops ~ 88% at night while asleep -Assess for home O2 requirement on discharge and patient was discharged with hospice /B/L PNA, POA Initially thought pulmonary edema but repeat XRY more suggestive of PNA will cont abx to complete course /Refractory Pancytopenia; secondary to myelodysplastic syndrome ordered another unit of PRBC and platelets Total 5 units of PRBC and 4 units platelets transfused, neutropenia precautions s/p Filgastrin per hematology, Discussed with family and Dr sandoval - need outpt f/u for BM biopsy and further treatment planning very poor prognosis, family decided to go for hospice on discharge /Sigmoid diverticulitis; continue antibiotics Surgical evaluation noted and appreciated Started clear liquids - advance as tolerated, recommend outpatient colonoscopy Transition to oral antibiotics upon discharge /Acute Sepsis; secondary to sigmoid diverticulitis and B/L PNA cont antibiotics, ID following /Myelodysplastic syndrome; Immuno suppressive state Management per hematology, need f/u outpt /Hypertension; moderate control, cont antihypertensives and PRN medications, /-Diabetes mellitus; Manage with Accu-Chek SSI and ADA diet, /Moderate malnutrition and hypoalbuminemia; nutrition supplements and supportive care /-DVT prophylaxis; SCDs No pharmacologic anticoagulation in view of pancytopenia --Full code Patient is critically ill very poor prognosis Plan of care reviewed with the patient and the family members at the bedside I also discussed with patient's nurse and picker and sorter load and unload Critical care time 32 minutes Disposition; home with Hospitalist Physical General appearance: Present: mild distress, well-nourished - EENT Eyes: Present: PERRL, EOM intact - Neck Neck: Present: supple, normal ROM - Respiratory Respiratory effort: normal Respiratory: bilateral: diminished, negative: rales, rhonchi, wheezing - Cardiovascular Rhythm: regular Heart Sounds: Present: S1 & S2 - Extremities Extremities: no ischemia, No edema through with the dialysis and usually is recently off loading and being started on - Abdominal General gastrointestinal: soft, non-tender, non-distended, normal bowel sounds - Integumentary Integumentary: Present: clear, warm - Psychiatric Psychiatric: appropriate mood/affect, cooperative - Neurologic Neurologic: CNII-XII intact Disposition: DC-50 TO HOSPICE (HOME) Time spent for discharge: 34 minutes Core Measure Documentation - Palliative Care Palliative Care/ Comfort Measures: Not Applicable - Core Measures Any of the following diagnoses?: history only Exam - Constitutional Vitals: Temp Pulse Resp BP Pulse Ox 98.5 F 85 18 97/76 90 08/03/19 12:00 08/03/19 13:00 08/03/19 13:00 08/03/19 13:00 08/03/19 13:00 Plan Activity: advance as tolerated, fall precautions Weight Bearing Status: Non-Weight Bearing Diet: advance as tolerated Special Instructions: record blood sugar diary, home oxygen via (2L N/c at night while sleeping) Durable Medical Equipment Needed Upon Discharge: Walker-Rolling Follow up with: TOLU YANG [Other] - 3-5 Days RICARDO SANDOVAL MD [Staff Physician] - 7 Days Prescriptions: metroNIDAZOLE [Flagyl TAB] 500 mg PO Q8HR #24 tablet Furosemide [Lasix TAB] 40 mg PO QDAY #30 tablet levoFLOXacin [Levaquin TAB] 750 mg PO QDAY #8 tablet
== END 2019-08-03 17:38 | disposition hospice, home (50) | DRG 871 ==
LOC: ED 11:05 → 4A 13:55 → IMCU 14:56
PROVIDERS: ADMIT Internal Medicine; ATTEND Internal Medicine
PROC: 30233N1 Transfusion of Nonautologous Red Blood Cells into Peripheral Vein, Percutaneous Approach (ICD-10-PCS; 2019-07-28)
PROC: 30233R1 Transfusion of Nonautologous Platelets into Peripheral Vein, Percutaneous Approach (ICD-10-PCS; principal; 2019-07-29)
PROC: 3E05317 Introduction of Other Thrombolytic into Peripheral Artery, Percutaneous Approach (ICD-10-PCS; 2019-07-29)
DX: A41.9 Sepsis, unspecified organism (principal); J18.9 Pneumonia, unspecified organism; D61.818 Other pancytopenia; E44.0 Moderate protein-calorie malnutrition; C16.9 Malignant neoplasm of stomach, unspecified; K57.32 Diverticulitis of large intestine without perforation or abscess without bleeding; C79.51 Secondary malignant neoplasm of bone; D46.9 Myelodysplastic syndrome, unspecified; I11.0 Hypertensive heart disease with heart failure; E11.9 Type 2 diabetes mellitus without complications; I50.9 Heart failure, unspecified; F17.200 Nicotine dependence, unspecified, uncomplicated; D69.6 Thrombocytopenia, unspecified; D89.9 Disorder involving the immune mechanism, unspecified; G47.30 Sleep apnea, unspecified; Z87.11 Personal history of peptic ulcer disease; I25.2 Old myocardial infarction; Z90.49 Acquired absence of other specified parts of digestive tract; Z79.899 Other long term (current) drug therapy; Z82.49 Family history of ischemic heart disease and other diseases of the circulatory system; Z68.21 Body mass index [BMI] 21.0-21.9, adult
CPT/HCPCS: 36415; 70450; 71045; 74176; 80048; 80053; 81001; 82140; 82550; 82553; 82962; 83735; 84100; 84484; 85007; 85025; 85027; 86850; 86900; 86901; 86920; 87040; 87086; 87116; 88184; 88185; 93005; 93010; 96360; G0378; J0692; J1170; J1447; J1815; J1940; J2185; J2997; J3370; J7030; J7040; J7050; P9016; P9035

== ENCOUNTER 2019-08-09 16:52 | Inpatient (IN) | payer MEDICARE ==
[2019-08-09 18:08] LABS: Mean Corpuscular HGB Conc 33 % (30-34); Mean Corpuscular Volume 94 fl (79-97)
[2019-08-09] MEDS ORDERED: SODIUM CHLORIDE 0.9% 1000 ML IV SOLN IV ONE (18:08)
[2019-08-09 18:14] LABS: Hematocrit 13.1 % (30.3-42.9); Hemoglobin 4.3 gm/dl (10.1-14.3); Platelet Count 6 K/mm3 (140-440)
[2019-08-09 18:22] LABS: Albumin 2.1 g/dL (3.9-5); BUN/Creatinine Ratio 55; Blood Urea Nitrogen 77 mg/dL (7-17); Calcium 8.6 mg/dL (8.4-10.2); Hemolysis Index 3
[2019-08-09 18:27] LABS: Partial Thromboplastin Time 47.4 Sec. (24.2-36.6)
[2019-08-09] MEDS ORDERED: ACETAMINOPHEN 650 MG RECT SUPP PR ONE ×2 (18:28→18:42)
[2019-08-09 18:34] LABS: Alanine Aminotransferase < 5 units/L (7-56)
[2019-08-09 18:36] LABS: INR 5.76 (0.87-1.13)
[2019-08-09] MEDS ORDERED: ACETAMINOPHEN 325 MG RECT SUPP PR ONE (18:42)
[2019-08-09] MEDS ORDERED: CEFEPIME/NS 2 GM/100 ML 2 GM/100 ML BAG IV ONE (18:43)
--- NOTE | 2019-08-09 18:46 | Emergency Department Report ---
ED Altered Mental Status HPI - General Chief Complaint: Altered Mental Status Stated Complaint: HYPOTENSION Time Seen by Provider: 08/09/19 17:45 Source: RN/MD, EMS Mode of arrival: Stretcher Limitations: Altered Mental Status, Physical Limitation - History of Present Illness Initial Comments: 78-year-old female with a history of myelodysplastic syndrome presents to the ED with altered mental status. Patient was recently discharged from this facility 6 days ago. Patient was seen and evaluated by childhood teacher, and deemed to have a poor prognosis. She underwent multiple transfusions at that time as well. Ultimately, tafe lecturer spoke with patient and her family, and the decision was made for patient to enter hospice care. Daughter states over the last 2 days, patient has become more confused. This evening, patient developed a fever, oxygen and blood pressure were low, and she complained of abdominal pain. The hospice nurse was called at that time, she came and evaluated the patient and administered morphine 30 mg. Daughter also called EMS at the same time. It was explained to patient that if she wanted patient transported to the ER then patient would have to come off of hospice care, so daughter signed papers releasing her from hospice. MD Complaint: altered mental status - Related Data Home Medications Medication Instructions Recorded Confirmed Last Taken Acetaminophen [Acetaminophen TAB] 500 mg PO Q6HR 05/26/19 08/09/19 07/13/19 Previous Rx's Medication Instructions Recorded Last Taken Type HYDROcodone/APAP 5-325 [[place] 1 each PO Q6HR PRN #10 tablet 05/28/19 07/13/19 Rx 5-325 mg TAB] Furosemide [Lasix TAB] 40 mg PO QDAY #30 tablet 08/03/19 Unknown Rx levoFLOXacin [Levaquin TAB] 750 mg PO QDAY #8 tablet 08/03/19 Unknown Rx metroNIDAZOLE [Flagyl TAB] 500 mg PO Q8HR #24 tablet 08/03/19 Unknown Rx Allergies Allergy/AdvReac Type Severity Reaction Status Date / Time No Known Allergies Allergy Verified 06/06/19 08:16 ED Review of Systems ROS: Stated complaint: HYPOTENSION Other details as noted in HPI ED Past Medical Hx - Past Medical History Hx Hypertension: Yes (date unknown) Hx Heart Attack/AMI: Yes (Pt states, "I think it was 2016".) Hx Congestive Heart Failure: Yes Hx Diabetes: Yes Additional medical history: Myelodysplastic syndrome - Surgical History Hx Cholecystectomy: Yes Additional Surgical History: stomach cancer. Bone Cancer. PICC line in left upper arm - Social History Smoking Status: Never Smoker Substance Use Type: None - Medications Home Medications: Home Medications Medication Instructions Recorded Confirmed Last Taken Type Acetaminophen [Acetaminophen TAB] 500 mg PO Q6HR 05/26/19 08/09/19 07/13/19 History HYDROcodone/APAP 5-325 [[place] 1 each PO Q6HR PRN #10 tablet 05/28/19 08/09/19 07/13/19 Rx 5-325 mg TAB] Furosemide [Lasix TAB] 40 mg PO QDAY #30 tablet 08/03/19 08/09/19 Unknown Rx levoFLOXacin [Levaquin TAB] 750 mg PO QDAY #8 tablet 08/03/19 08/09/19 Unknown Rx metroNIDAZOLE [Flagyl TAB] 500 mg PO Q8HR #24 tablet 08/03/19 08/09/19 Unknown Rx ED Physical Exam - General Limitations: Altered Mental Status, Physical Limitation General appearance: lethargic - Head Head exam: Present: atraumatic, normocephalic - Eye Pupils: Present: other (pinpoint) - ENT ENT exam: Present: mucous membranes moist - Neck Neck exam: Present: normal inspection - Respiratory Respiratory exam: Present: decreased breath sounds, other (tachypneic) - Cardiovascular Cardiovascular Exam: Present: normal rhythm, tachycardia - GI/Abdominal GI/Abdominal exam: Present: soft. Absent: distended, tenderness - Extremities Exam Extremities exam: Present: normal inspection, other (PICC line in place in left arm) - Neurological Exam Neurological exam: Present: altered, other (nonverbal, responds to painful stimuli) - Psychiatric Psychiatric exam: Present: normal affect, normal mood - Skin Skin exam: Present: warm, dry, intact, normal color ED Course Vital Signs 08/09/19 08/09/19 08/09/19 17:19 17:31 18:00 Temperature 102.3 F H Pulse Rate 110 H 112 H Respiratory 29 H 26 H 25 H Rate Blood Pressure Blood Pressure 103/50 102/48 [Right] O2 Sat by Pulse 95 91 91 Oximetry 08/09/19 08/09/19 08/09/19 18:15 18:30 19:00 Temperature Pulse Rate 96 H 109 H 102 H Respiratory 29 H 25 H 25 H Rate Blood Pressure Blood Pressure 94/44 91/45 92/44 [Right] O2 Sat by Pulse 94 96 94 Oximetry 08/09/19 08/09/19 08/09/19 19:06 19:15 19:18 Temperature Pulse Rate 101 H 110 H 104 H Respiratory 25 H 24 Rate Blood Pressure Blood Pressure 102/39 [Right] O2 Sat by Pulse 96 96 Oximetry 08/09/19 08/09/19 08/09/19 19:30 19:58 22:18 Temperature 100.2 F H 99.5 F Pulse Rate 100 H 101 H 117 H Respiratory 24 26 H 24 Rate Blood Pressure 95/44 Blood Pressure 105/46 93/49 [Right] O2 Sat by Pulse 97 92 92 Oximetry 08/09/19 08/09/19 23:00 23:15 Temperature 99 F Pulse Rate 97 H 98 H Respiratory 21 22 Rate Blood Pressure 87/43 88/43 Blood Pressure [Right] O2 Sat by Pulse 99 99 Oximetry - Reevaluation(s) Reevaluation #1: 08/09/19 18:44 Had conversation w/ daughter, Richar Casas, over the phone ([phone]). Was in the ER earlier, but left. States she will be here in approx 15 min. Took pt off of hospice care. States did not originally have a good understanding of what Hospice actually meant. 08/09/19 20:09 Reevaluation #2: 08/09/19 19:32 Daughter, Richar Casas, currently at bedside. Had lengthy discussion regarding pt's status. She states she does not want pt on Hospice right now. Wants everything done for the patient at this time. Reevaluation #3: 08/09/19 20:01 I again spoke with the pt's daughter, Richar, who and at bedside, along with patient's other daughter who is on the phone with Richar. They have decided that they would like pt to be treated at this time, this includes IV fluids, anti biotics, transfusions, and any necessary radiologic studies. However, if pt goes into cardiac arrest or respiratory failure, they do not want her to be intubated or resuscitated. - Lab Data Result diagrams: 08/09/19 17:45 08/09/19 17:45 Lab Results 08/09/19 08/09/19 08/09/19 Range/Units 17:45 17:45 17:45 WBC 0.3 L* (4.5-11.0) K/mm3 RBC 1.40 L (3.65-5.03) M/mm3 Hgb 4.3 L* (10.1-14.3) gm/dl Hct 13.1 L* (30.3-42.9) % MCV 94 (79-97) fl MCH 31 (28-32) pg MCHC 33 (30-34) % RDW 17.0 H (13.2-15.2) % Plt Count 6 L* (140-440) K/mm3 Lymph % (Auto) [employer] Add Manual Diff Complete Total Counted 50 Seg Neutrophils % [employer] Seg Neuts % (Manual) 2.0 L (40.0-70.0) % Band Neutrophils % 0 % Lymphocytes % (Manual) 92.0 H (13.4-35.0) % Reactive Lymphs % (Man) 0 % Monocytes % (Manual) 6.0 (0.0-7.3) % Eosinophils % (Manual) 0 (0.0-4.3) % Basophils % (Manual) 0 (0.0-1.8) % Metamyelocytes % 0 % Myelocytes % 0 % Promyelocytes % 0 % Blast Cells % 0 % Nucleated RBC % Not Reportable Seg Neutrophils # Man 0.0 L (1.8-7.7) K/mm3 Band Neutrophils # 0.0 K/mm3 Lymphocytes # (Manual) 0.3 L (1.2-5.4) K/mm3 Abs React Lymphs (Man) 0.0 K/mm3 Monocytes # (Manual) 0.0 (0.0-0.8) K/mm3 Eosinophils # (Manual) 0.0 (0.0-0.4) K/mm3 Basophils # (Manual) 0.0 (0.0-0.1) K/mm3 Metamyelocytes # 0.0 K/mm3 Myelocytes # 0.0 K/mm3 Promyelocytes # 0.0 K/mm3 Blast Cells # 0.0 K/mm3 WBC Morphology Not Reportable Hypersegmented Neuts Not Reportable Hyposegmented Neuts Not Reportable Hypogranular Neuts Not Reportable Smudge Cells Not Reportable Toxic Granulation Not Reportable Toxic Vacuolation Not Reportable Dohle Bodies Not Reportable Pelger-Huet Anomaly Not Reportable Pao Rods Not Reportable Platelet Estimate Consistent w auto Clumped Platelets Not Reportable Plt Clumps, EDTA Not Reportable Large Platelets Not Reportable Giant Platelets Not Reportable Platelet Satelliting Not Reportable Plt Morphology Comment Not Reportable RBC Morphology Not Reportable Dimorphic RBCs Not Reportable Polychromasia Not Reportable Hypochromasia Not Reportable Poikilocytosis 1+ Anisocytosis 1+ Microcytosis Not Reportable Macrocytosis Not Reportable Spherocytes Not Reportable Pappenheimer Bodies Not Reportable Sickle Cells Not Reportable Target Cells Not Reportable Tear Drop Cells Not Reportable Ovalocytes Not Reportable Helmet Cells Not Reportable [place] Bodies Not Reportable [place] Rings Not Reportable [place] Cells Not Reportable Bite Cells Not Reportable Crenated Cell Not Reportable Elliptocytes Not Reportable Acanthocytes (Spur) Not Reportable Rouleaux Not Reportable Hemoglobin C Crystals Not Reportable Schistocytes Not Reportable Malaria parasites Not Reportable Chung Bodies Not Reportable Hem Pathologist Commnt No PT 50.4 H (12.2-14.9) Sec. INR 5.76 H* (0.87-1.13) APTT 47.4 H (24.2-36.6) Sec. Sodium 159 H (137-145) mmol/L Potassium 5.4 H (3.6-5.0) mmol/L Chloride 118.1 H (98-107) mmol/L Carbon Dioxide 16 L (22-30) mmol/L Anion Gap 30 mmol/L BUN 77 H (7-17) mg/dL Creatinine 1.4 H (0.7-1.2) mg/dL Estimated GFR 44 ml/min BUN/Creatinine Ratio 55 % Glucose 291 H (65-100) mg/dL POC Glucose (70-105) Lactic Acid (0.7-2.0) mmol/L Calcium 8.6 (8.4-10.2) mg/dL Total Bilirubin 2.40 H (0.1-1.2) mg/dL AST < 5 L (5-40) units/L ALT < 5 L (7-56) units/L Alkaline Phosphatase 22 L (35-129) units/L Troponin T (0.00-0.029) ng/mL Total Protein 6.9 (6.3-8.2) g/dL Albumin 2.1 L (3.9-5) g/dL Albumin/Globulin Ratio 0.4 % Urine Color (Yellow) Urine Turbidity (Clear) Urine pH (5.0-7.0) Ur Specific [place] (1.003-1.030) Urine Protein (Negative) mg/dL Urine Glucose (UA) (Negative) mg/dL Urine Ketones (Negative) mg/dL Urine Blood (Negative) Urine Nitrite (Negative) Urine Bilirubin (Negative) Urine Urobilinogen (<2.0) mg/dL Ur Leukocyte Esterase (Negative) Urine WBC (Auto) (0.0-6.0) /HPF Urine RBC (Auto) (0.0-6.0) /HPF U Epithel Cells (Auto) (0-13.0) /HPF Urine Bacteria (Auto) (Negative) /HPF Urine Mucus /HPF Urine Yeast (Budding) /HPF Blood Type Antibody Screen Crossmatch 08/09/19 08/09/19 08/09/19 Range/Units 17:45 19:06 19:32 WBC (4.5-11.0) K/mm3 RBC (3.65-5.03) M/mm3 Hgb (10.1-14.3) gm/dl Hct (30.3-42.9) % MCV (79-97) fl MCH (28-32) pg MCHC (30-34) % RDW (13.2-15.2) % Plt Count (140-440) K/mm3 Lymph % (Auto) Add Manual Diff Total Counted Seg Neutrophils % Seg Neuts % (Manual) (40.0-70.0) % Band Neutrophils % % Lymphocytes % (Manual) (13.4-35.0) % Reactive Lymphs % (Man) % Monocytes % (Manual) (0.0-7.3) % Eosinophils % (Manual) (0.0-4.3) % Basophils % (Manual) (0.0-1.8) % Metamyelocytes % % Myelocytes % % Promyelocytes % % Blast Cells % % Nucleated RBC % Seg Neutrophils # Man (1.8-7.7) K/mm3 Band Neutrophils # K/mm3 Lymphocytes # (Manual) (1.2-5.4) K/mm3 Abs React Lymphs (Man) K/mm3 Monocytes # (Manual) (0.0-0.8) K/mm3 Eosinophils # (Manual) (0.0-0.4) K/mm3 Basophils # (Manual) (0.0-0.1) K/mm3 Metamyelocytes # K/mm3 Myelocytes # K/mm3 Promyelocytes # K/mm3 Blast Cells # K/mm3 WBC Morphology Hypersegmented Neuts Hyposegmented Neuts Hypogranular Neuts Smudge Cells Toxic Granulation Toxic Vacuolation Dohle Bodies Pelger-Huet Anomaly Pao Rods Platelet Estimate Clumped Platelets Plt Clumps, EDTA Large Platelets Giant Platelets Platelet Satelliting Plt Morphology Comment RBC Morphology Dimorphic RBCs Polychromasia Hypochromasia Poikilocytosis Anisocytosis Microcytosis Macrocytosis Spherocytes Pappenheimer Bodies Sickle Cells Target Cells Tear Drop Cells Ovalocytes Helmet Cells [place] Bodies [place] Rings [place] Cells Bite Cells Crenated Cell Elliptocytes Acanthocytes (Spur) Rouleaux Hemoglobin C Crystals Schistocytes Malaria parasites Chung Bodies Hem Pathologist Commnt PT (12.2-14.9) Sec. INR (0.87-1.13) APTT (24.2-36.6) Sec. Sodium (137-145) mmol/L Potassium (3.6-5.0) mmol/L Chloride (98-107) mmol/L Carbon Dioxide (22-30) mmol/L Anion Gap mmol/L BUN (7-17) mg/dL Creatinine (0.7-1.2) mg/dL Estimated GFR ml/min BUN/Creatinine Ratio % Glucose (65-100) mg/dL POC Glucose (70-105) Lactic Acid 13.50 H* 14.50 H* (0.7-2.0) mmol/L Calcium (8.4-10.2) mg/dL Total Bilirubin (0.1-1.2) mg/dL AST (5-40) units/L ALT (7-56) units/L Alkaline Phosphatase (35-129) units/L Troponin T (0.00-0.029) ng/mL Total Protein (6.3-8.2) g/dL Albumin (3.9-5) g/dL Albumin/Globulin Ratio % Urine Color [place] (Yellow) Urine Turbidity Slightly-cloudy (Clear) Urine pH 5.0 (5.0-7.0) Ur Specific [place] 1.017 (1.003-1.030) Urine Protein <15 mg/dl (Negative) mg/dL Urine Glucose (UA) Neg (Negative) mg/dL Urine Ketones Neg (Negative) mg/dL Urine Blood Neg (Negative) Urine Nitrite Neg (Negative) Urine Bilirubin Neg (Negative) Urine Urobilinogen < 2.0 (<2.0) mg/dL Ur Leukocyte Esterase Tr (Negative) Urine WBC (Auto) 1.0 (0.0-6.0) /HPF Urine RBC (Auto) 1.0 (0.0-6.0) /HPF U Epithel Cells (Auto) 1.0 (0-13.0) /HPF Urine Bacteria (Auto) 1+ (Negative) /HPF Urine Mucus Few /HPF Urine Yeast (Budding) 1+ /HPF Blood Type Antibody Screen Crossmatch 08/09/19 08/09/19 08/09/19 Range/Units 19:32 19:32 19:51 WBC (4.5-11.0) K/mm3 RBC (3.65-5.03) M/mm3 Hgb (10.1-14.3) gm/dl Hct (30.3-42.9) % MCV (79-97) fl MCH (28-32) pg MCHC (30-34) % RDW (13.2-15.2) % Plt Count (140-440) K/mm3 Lymph % (Auto) Add Manual Diff Total Counted Seg Neutrophils % Seg Neuts % (Manual) (40.0-70.0) % Band Neutrophils % % Lymphocytes % (Manual) (13.4-35.0) % Reactive Lymphs % (Man) % Monocytes % (Manual) (0.0-7.3) % Eosinophils % (Manual) (0.0-4.3) % Basophils % (Manual) (0.0-1.8) % Metamyelocytes % % Myelocytes % % Promyelocytes % % Blast Cells % % Nucleated RBC % Seg Neutrophils # Man (1.8-7.7) K/mm3 Band Neutrophils # K/mm3 Lymphocytes # (Manual) (1.2-5.4) K/mm3 Abs React Lymphs (Man) K/mm3 Monocytes # (Manual) (0.0-0.8) K/mm3 Eosinophils # (Manual) (0.0-0.4) K/mm3 Basophils # (Manual) (0.0-0.1) K/mm3 Metamyelocytes # K/mm3 Myelocytes # K/mm3 Promyelocytes # K/mm3 Blast Cells # K/mm3 WBC Morphology Hypersegmented Neuts Hyposegmented Neuts Hypogranular Neuts Smudge Cells Toxic Granulation Toxic Vacuolation Dohle Bodies Pelger-Huet Anomaly Pao Rods Platelet Estimate Clumped Platelets Plt Clumps, EDTA Large Platelets Giant Platelets Platelet Satelliting Plt Morphology Comment RBC Morphology Dimorphic RBCs Polychromasia Hypochromasia Poikilocytosis Anisocytosis Microcytosis Macrocytosis Spherocytes Pappenheimer Bodies Sickle Cells Target Cells Tear Drop Cells Ovalocytes Helmet Cells [place] Bodies [place] Rings [place] Cells Bite Cells Crenated Cell Elliptocytes Acanthocytes (Spur) Rouleaux Hemoglobin C Crystals Schistocytes Malaria parasites Chung Bodies Hem Pathologist Commnt PT 56.4 H (12.2-14.9) Sec. INR 6.67 H* (0.87-1.13) APTT 40.7 H (24.2-36.6) Sec. Sodium (137-145) mmol/L Potassium (3.6-5.0) mmol/L Chloride (98-107) mmol/L Carbon Dioxide (22-30) mmol/L Anion Gap mmol/L BUN (7-17) mg/dL Creatinine (0.7-1.2) mg/dL Estimated GFR ml/min BUN/Creatinine Ratio % Glucose (65-100) mg/dL POC Glucose (70-105) Lactic Acid (0.7-2.0) mmol/L Calcium (8.4-10.2) mg/dL Total Bilirubin (0.1-1.2) mg/dL AST (5-40) units/L ALT (7-56) units/L Alkaline Phosphatase (35-129) units/L Troponin T < 0.010 (0.00-0.029) ng/mL Total Protein (6.3-8.2) g/dL Albumin (3.9-5) g/dL Albumin/Globulin Ratio % Urine Color (Yellow) Urine Turbidity (Clear) Urine pH (5.0-7.0) Ur Specific [place] (1.003-1.030) Urine Protein (Negative) mg/dL Urine Glucose (UA) (Negative) mg/dL Urine Ketones (Negative) mg/dL Urine Blood (Negative) Urine Nitrite (Negative) Urine Bilirubin (Negative) Urine Urobilinogen (<2.0) mg/dL Ur Leukocyte Esterase (Negative) Urine WBC (Auto) (0.0-6.0) /HPF Urine RBC (Auto) (0.0-6.0) /HPF U Epithel Cells (Auto) (0-13.0) /HPF Urine Bacteria (Auto) (Negative) /HPF Urine Mucus /HPF Urine Yeast (Budding) /HPF Blood Type O POSITIVE Antibody Screen Negative Crossmatch See Detail 08/09/19 08/09/19 08/09/19 Range/Units 20:35 21:08 21:44 WBC (4.5-11.0) K/mm3 RBC (3.65-5.03) M/mm3 Hgb (10.1-14.3) gm/dl Hct (30.3-42.9) % MCV (79-97) fl MCH (28-32) pg MCHC (30-34) % RDW (13.2-15.2) % Plt Count (140-440) K/mm3 Lymph % (Auto) Add Manual Diff Total Counted Seg Neutrophils % Seg Neuts % (Manual) (40.0-70.0) % Band Neutrophils % % Lymphocytes % (Manual) (13.4-35.0) % Reactive Lymphs % (Man) % Monocytes % (Manual) (0.0-7.3) % Eosinophils % (Manual) (0.0-4.3) % Basophils % (Manual) (0.0-1.8) % Metamyelocytes % % Myelocytes % % Promyelocytes % % Blast Cells % % Nucleated RBC % Seg Neutrophils # Man (1.8-7.7) K/mm3 Band Neutrophils # K/mm3 Lymphocytes # (Manual) (1.2-5.4) K/mm3 Abs React Lymphs (Man) K/mm3 Monocytes # (Manual) (0.0-0.8) K/mm3 Eosinophils # (Manual) (0.0-0.4) K/mm3 Basophils # (Manual) (0.0-0.1) K/mm3 Metamyelocytes # K/mm3 Myelocytes # K/mm3 Promyelocytes # K/mm3 Blast Cells # K/mm3 WBC Morphology Hypersegmented Neuts Hyposegmented Neuts Hypogranular Neuts Smudge Cells Toxic Granulation Toxic Vacuolation Dohle Bodies Pelger-Huet Anomaly Pao Rods Platelet Estimate Clumped Platelets Plt Clumps, EDTA Large Platelets Giant Platelets Platelet Satelliting Plt Morphology Comment RBC Morphology Dimorphic RBCs Polychromasia Hypochromasia Poikilocytosis Anisocytosis Microcytosis Macrocytosis Spherocytes Pappenheimer Bodies Sickle Cells Target Cells Tear Drop Cells Ovalocytes Helmet Cells [place] Bodies [place] Rings [place] Cells Bite Cells Crenated Cell Elliptocytes Acanthocytes (Spur) Rouleaux Hemoglobin C Crystals Schistocytes Malaria parasites Chung Bodies Hem Pathologist Commnt PT (12.2-14.9) Sec. INR (0.87-1.13) APTT (24.2-36.6) Sec. Sodium (137-145) mmol/L Potassium (3.6-5.0) mmol/L Chloride (98-107) mmol/L Carbon Dioxide (22-30) mmol/L Anion Gap mmol/L BUN (7-17) mg/dL Creatinine (0.7-1.2) mg/dL Estimated GFR ml/min BUN/Creatinine Ratio % Glucose (65-100) mg/dL POC Glucose 188 H (70-105) Lactic Acid 13.80 H* 16.30 H* (0.7-2.0) mmol/L Calcium (8.4-10.2) mg/dL Total Bilirubin (0.1-1.2) mg/dL AST (5-40) units/L ALT (7-56) units/L Alkaline Phosphatase (35-129) units/L Troponin T (0.00-0.029) ng/mL Total Protein (6.3-8.2) g/dL Albumin (3.9-5) g/dL Albumin/Globulin Ratio % Urine Color (Yellow) Urine Turbidity (Clear) Urine pH (5.0-7.0) Ur Specific [place] (1.003-1.030) Urine Protein (Negative) mg/dL Urine Glucose (UA) (Negative) mg/dL Urine Ketones (Negative) mg/dL Urine Blood (Negative) Urine Nitrite (Negative) Urine Bilirubin (Negative) Urine Urobilinogen (<2.0) mg/dL Ur Leukocyte Esterase (Negative) Urine WBC (Auto) (0.0-6.0) /HPF Urine RBC (Auto) (0.0-6.0) /HPF U Epithel Cells (Auto) (0-13.0) /HPF Urine Bacteria (Auto) (Negative) /HPF Urine Mucus /HPF Urine Yeast (Budding) /HPF Blood Type Antibody Screen Crossmatch - EKG Data -: EKG Interpreted by Me EKG shows normal: sinus rhythm, axis, intervals, QRS complexes, ST-T waves Rate: tachycardia Interpretation: no acute changes - Radiology Data Radiology results: report reviewed, image reviewed - Medical Decision Making 78-year-old female with mild dysplastic syndrome presents to ED with altered mental status over the last 2 days. Patient was removed from hospice care his prior to ED arrival as her daughter requested emergency care services. Sepsis alert was called upon patient's arrival, as she presented with fever, tachycardia, tachypnea, and soft blood pressure. Patient is somewhat alert, but nonverbal, moaning and responding only to noxious stimuli. Patient is pancytopenic, lactic acid is elevated, she is in acute renal failure with mild hyperkalemia, she is coagulopathic with an elevated INR. She appears to have pneumonia on x-ray and CT. CT head shows small hygroma. I had a long discussion with patient's daughters. Patient is advised to make patient DO NOT RESUSCITATE. However, they do want the patient to be treated at this time. IV fluids, antibiotics given. PRBCs, platelets, FFP ordered as well. Hyperkalemia was treated with insulin, D50, calcium, Kayexalate. Spoke with Dr. Jimenez, hospitalist, who will admit for further management. Critical Care Time: Yes Critical care time in (mins) excluding proc time.: 60 Critical care attestation.: If time is entered above; I have spent that time in minutes in the direct care of this critically ill patient, excluding procedure time. Critical Care Time: 60 minutes ED Disposition Clinical Impression: Encephalopathy acute, Pancytopenia, Sepsis, Hyperkalemia, Acute renal failure, Coagulopathy, Hypernatremia, Pneumonia, Hygroma Disposition: OP ADMIT IP TO THIS HOSP Is pt being admited?: Yes Condition: Stable Instructions: Bacterial Pneumonia (ED) Referrals: PRIMARY CARE, [Primary Care Provider] - 3-5 Days Time of Disposition: 22:30
[2019-08-09 19:19] LABS: Bacteria,Urine 1+ /HPF (Negative); Bilirubin,Urine NEG (Negative); Blood,Urine NEG (Negative); Color,Urine Amber (Yellow); Mucus,Urine FEW /HPF; Protein,Urine <15 mg/dL mg/dL (Negative); Urobilinogen,Urine < 2.0 mg/dL (<2.0)
[2019-08-09] MEDS ORDERED: VANCOMYCIN/NS 1 GM/250 ML 1 GM/250 ML BAG IV ONE (19:30)
[2019-08-09] MEDS ORDERED: SODIUM CHLORIDE 0.9% 500 ML 500 ML IV ONE ×2 (19:56→22:23)
[2019-08-09] MEDS ORDERED: DEXTROSE 50% IN WATER (25GM) 50 ML SYRINGE IV ONE (20:24)
[2019-08-09] MEDS ORDERED: INSULIN REGULAR, HUMAN 100 UNITS/1 ML IV ONE (20:24)
--- NOTE | 2019-08-09 20:39 | XRay Report ---
CHEST 1 VIEW 08/09/2019 7:37 PM INDICATION / CLINICAL INFORMATION: fever, sob. COMPARISON: Chest x-ray 08/03/2019 FINDINGS: SUPPORT DEVICES: Left PICC line again has tip overlying right atrium HEART / MEDIASTINUM: Cardiac silhouette remains enlarged LUNGS / PLEURA: Bilateral multifocal somewhat nodular parenchymal disease, unchanged. No pneumothorax . ADDITIONAL FINDINGS: No significant additional findings. IMPRESSION: 1. Nodular bilateral parenchymal disease again noted. Recommend chest CT for further evaluation in or joseph to differentiate pulmonary metastases from multifocal pneumonia. Signer Name: Clement Ventura MD Signed: 08/09/2019 8:34 PM Workstation Name: [id number]
[2019-08-09 20:50] LABS: Partial Thromboplastin Time 40.7 Sec. (24.2-36.6)
[2019-08-09 20:56] LABS: Basophils % (Manual) 0 % (0.0-1.8); Eosinophils % (Manual) 0 % (0.0-4.3); Total Cells Counted 50
[2019-08-09 20:58] LABS: Anisocytosis 1+; Platelet Estimate Consistent w Auto; Poikilocytosis 1+
[2019-08-09 21:03] LABS: INR 6.67 (0.87-1.13)
--- NOTE | 2019-08-09 21:11 | Cat Scan Report ---
CT head/brain wo con INDICATION / CLINICAL INFORMATION: 78 years Female; ams. TECHNIQUE: Routine CT head without contrast. All CT scans at this location are performed using CT dos e reduction for ALARA by means of automated exposure control. COMPARISON: The study is compared to the previous CT of 07/29/2019. FINDINGS: BRAIN / INTRACRANIAL CONTENTS: There has been interval development of prominence of the CSF attenuati on along the right frontal lobe from the previous CT which may represent a small hygroma. This findin g measures approximately 4-5 mm in greatest transverse diameter. There is motion as well as beam hard ening artifact from the adjacent calvarium but this finding appears to demonstrate CSF density at. Ot herwise, there is no clear CT evidence of acute intracranial hemorrhage. There is mild to moderate cerebral white matter disease most consistent with microvascular angiopathy which appears unchanged at. There is mild cerebral atrophy. The ventricular system remains appropria te in size and configuration. ORBITS: No significant abnormality of visualized orbits. SINUSES / MASTOIDS: There is continued is scattered opacification within the ethmoid and right spheno id sinuses. CRANIOCERVICAL JUNCTION: No significant abnormality. ADDITIONAL FINDINGS: None. IMPRESSION: 1. The findings are indicative of interval development of a small hygroma along the lateral right fro ntal lobe from 07/29/2019 as detailed above. 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 Signer Name: Jc Scott MD Signed: 08/09/2019 9:07 PM Workstation Name: [id number]
[2019-08-09] MEDS ORDERED: CALCIUM GLUCONATE 1,000 MG in SODIUM CHLORIDE 0.9% 100 ML IV ONE (21:25)
--- NOTE | 2019-08-09 21:36 | Cat Scan Report ---
CT ABDOMEN AND PELVIS WITHOUT CONTRAST INDICATION / CLINICAL INFORMATION: Abdominal pain. TECHNIQUE: Axial CT images were obtained through the abdomen and pelvis without IV contrast. All CT scans at [facility] location are performed using CT dose reduction for ALARA by means of automated exposure control. COMPARISON: None available. FINDINGS: LOWER CHEST: Masslike consolidation in the visualized portion of the middle lobe has increased in siz e considerably compared to 07/28/2019, suggestive of pneumonia. A focal consolidative/nodular opacity also has developed at the superior portion of the right lower lobe. Both are seen on series 3 image 8 . No pleural fluid. Stable cardiomegaly. Stable to decreased small pericardial effusion. LIVER: No significant abnormality. GALLBLADDER: Not seen. Suspected be surgically absent. BILE DUCTS: No significant abnormality. PANCREAS: No significant abnormality. SPLEEN: Unchanged, marked splenomegaly. ADRENALS: No significant abnormality. RIGHT KIDNEY and URETER: Unchanged. LEFT KIDNEY and URETER: Unchanged. GASTROINTESTINAL: The stomach is mostly collapsed. No appreciable obstructive or acute inflammatory c hanges. Evaluation is significantly limited by streak artifact and patient motion. I do not appreciat e pneumoperitoneum or pneumatosis intestinalis. I cannot identify the appendix. PERITONEUM: No free fluid. No free air. No fluid collection. LYMPH NODES: No adenopathy. AORTA and ARTERIES: Unremarkable by noncontrast technique. IVC and VEINS: Unremarkable by noncontrast technique. URINARY BLADDER: No significant abnormality. REPRODUCTIVE ORGANS: No significant abnormality. ADDITIONAL FINDINGS: None. SKELETAL SYSTEM: No acute abnormality. IMPRESSION: 1. Masslike consolidations in the middle and right lower lobes are concerning for pneumonia, worsenin g relative to 07/28/2019. 2. Otherwise, no acute abnormality is identified within limitations of the exam, which include patien t motion, streak artifact from overlying electrodes, and noncontrast technique. Signer Name: Clinton Mcmahon MD Signed: 08/09/2019 9:32 PM Workstation Name: [id number]
--- NOTE | 2019-08-09 23:04 | History and Physical Report ---
History of Present Illness Date of examination: 08/09/19 History of present illness: 78-year-old woman with a history of myelodysplastic syndrome, hypertension, diabetes, anemia was brought to the emergency room for evaluation of low oxygen level and blood pressure. History is per the daughter at bedside state that the patient has been confused today. Patient nonrebreather,given antibiotics in the emergency room. Patient was recently discharged to hospice, daughter revoked hospice Review of system is unobtainable PAST MEDICAL HISTORY:myelodysplastic syndrome, hypertension, diabetes, anemia PAST SURGICAL HISTORY: gallbladder FAMILY HISTORY:hypertension, diabetes SOCIAL HISTORY: Denies tobacco, drugs, alcohol Medications and Allergies Allergies Allergy/AdvReac Type Severity Reaction Status Date / Time No Known Allergies Allergy Verified 06/06/19 08:16 Home Medications Medication Instructions Recorded Confirmed Last Taken Type Acetaminophen [Acetaminophen TAB] 500 mg PO Q6HR 05/26/19 08/09/19 07/13/19 History HYDROcodone/APAP 5-325 [[place] 1 each PO Q6HR PRN #10 tablet 05/28/19 08/09/19 07/13/19 Rx 5-325 mg TAB] Furosemide [Lasix TAB] 40 mg PO QDAY #30 tablet 08/03/19 08/09/19 Unknown Rx levoFLOXacin [Levaquin TAB] 750 mg PO QDAY #8 tablet 08/03/19 08/09/19 Unknown Rx metroNIDAZOLE [Flagyl TAB] 500 mg PO Q8HR #24 tablet 08/03/19 08/09/19 Unknown Rx Exam - Physical Exam Narrative exam: General Apperance: The patient sitting in bed no acute distress HEENT: Normocephalic, atraumatic. Pupils equally round and reactive to light, extraocular movement intact, and no sclericterus or JVD or thyromegaly or nodule. Neck supple, no carotid bruit, mucous membranes moist, no exudate or erythema Heart: S1-S2, regular is rhythm Lungs: Clear to auscultation bilaterally, breathing comfortable Abdomen: Positive bowel sounds, soft, nontender, nondistended, no organomegaly Extremities: No edema cyanosis clubbing Skin: no rash, nodule, warm and dry Neuro: Difficult to assess - Constitutional Vitals: Temp Pulse Resp BP Pulse Ox 99.5 F 117 H 24 93/49 92 08/09/19 22:18 08/09/19 22:18 08/09/19 22:18 08/09/19 22:18 08/09/19 22:18 Results - Labs CBC & Chem 7: 08/09/19 17:45 08/09/19 17:45 Labs: Abnormal lab results 08/09/19 08/09/19 08/09/19 Range/Units 17:45 17:45 17:45 WBC 0.3 L* (4.5-11.0) K/mm3 RBC 1.40 L (3.65-5.03) M/mm3 Hgb 4.3 L* (10.1-14.3) gm/dl Hct 13.1 L* (30.3-42.9) % RDW 17.0 H (13.2-15.2) % Plt Count 6 L* (140-440) K/mm3 Seg Neuts % (Manual) 2.0 L (40.0-70.0) % Lymphocytes % (Manual) 92.0 H (13.4-35.0) % Seg Neutrophils # Man 0.0 L (1.8-7.7) K/mm3 Lymphocytes # (Manual) 0.3 L (1.2-5.4) K/mm3 PT 50.4 H (12.2-14.9) Sec. INR 5.76 H* (0.87-1.13) APTT 47.4 H (24.2-36.6) Sec. Sodium 159 H (137-145) mmol/L Potassium 5.4 H (3.6-5.0) mmol/L Chloride 118.1 H (98-107) mmol/L Carbon Dioxide 16 L (22-30) mmol/L BUN 77 H (7-17) mg/dL Creatinine 1.4 H (0.7-1.2) mg/dL Glucose 291 H (65-100) mg/dL POC Glucose (70-105) Lactic Acid (0.7-2.0) mmol/L Total Bilirubin 2.40 H (0.1-1.2) mg/dL AST < 5 L (5-40) units/L ALT < 5 L (7-56) units/L Alkaline Phosphatase 22 L (35-129) units/L Albumin 2.1 L (3.9-5) g/dL Crossmatch 08/09/19 08/09/19 08/09/19 Range/Units 17:45 19:32 19:32 WBC (4.5-11.0) K/mm3 RBC (3.65-5.03) M/mm3 Hgb (10.1-14.3) gm/dl Hct (30.3-42.9) % RDW (13.2-15.2) % Plt Count (140-440) K/mm3 Seg Neuts % (Manual) (40.0-70.0) % Lymphocytes % (Manual) (13.4-35.0) % Seg Neutrophils # Man (1.8-7.7) K/mm3 Lymphocytes # (Manual) (1.2-5.4) K/mm3 PT (12.2-14.9) Sec. INR (0.87-1.13) APTT (24.2-36.6) Sec. Sodium (137-145) mmol/L Potassium (3.6-5.0) mmol/L Chloride (98-107) mmol/L Carbon Dioxide (22-30) mmol/L BUN (7-17) mg/dL Creatinine (0.7-1.2) mg/dL Glucose (65-100) mg/dL POC Glucose (70-105) Lactic Acid 13.50 H* 14.50 H* (0.7-2.0) mmol/L Total Bilirubin (0.1-1.2) mg/dL AST (5-40) units/L ALT (7-56) units/L Alkaline Phosphatase (35-129) units/L Albumin (3.9-5) g/dL Crossmatch See Detail 08/09/19 08/09/19 08/09/19 Range/Units 19:51 20:35 21:08 WBC (4.5-11.0) K/mm3 RBC (3.65-5.03) M/mm3 Hgb (10.1-14.3) gm/dl Hct (30.3-42.9) % RDW (13.2-15.2) % Plt Count (140-440) K/mm3 Seg Neuts % (Manual) (40.0-70.0) % Lymphocytes % (Manual) (13.4-35.0) % Seg Neutrophils # Man (1.8-7.7) K/mm3 Lymphocytes # (Manual) (1.2-5.4) K/mm3 PT 56.4 H (12.2-14.9) Sec. INR 6.67 H* (0.87-1.13) APTT 40.7 H (24.2-36.6) Sec. Sodium (137-145) mmol/L Potassium (3.6-5.0) mmol/L Chloride (98-107) mmol/L Carbon Dioxide (22-30) mmol/L BUN (7-17) mg/dL Creatinine (0.7-1.2) mg/dL Glucose (65-100) mg/dL POC Glucose 188 H (70-105) Lactic Acid 13.80 H* (0.7-2.0) mmol/L Total Bilirubin (0.1-1.2) mg/dL AST (5-40) units/L ALT (7-56) units/L Alkaline Phosphatase (35-129) units/L Albumin (3.9-5) g/dL Crossmatch 08/09/19 Range/Units 21:44 WBC (4.5-11.0) K/mm3 RBC (3.65-5.03) M/mm3 Hgb (10.1-14.3) gm/dl Hct (30.3-42.9) % RDW (13.2-15.2) % Plt Count (140-440) K/mm3 Seg Neuts % (Manual) (40.0-70.0) % Lymphocytes % (Manual) (13.4-35.0) % Seg Neutrophils # Man (1.8-7.7) K/mm3 Lymphocytes # (Manual) (1.2-5.4) K/mm3 PT (12.2-14.9) Sec. INR (0.87-1.13) APTT (24.2-36.6) Sec. Sodium (137-145) mmol/L Potassium (3.6-5.0) mmol/L Chloride (98-107) mmol/L Carbon Dioxide (22-30) mmol/L BUN (7-17) mg/dL Creatinine (0.7-1.2) mg/dL Glucose (65-100) mg/dL POC Glucose (70-105) Lactic Acid 16.30 H* (0.7-2.0) mmol/L Total Bilirubin (0.1-1.2) mg/dL AST (5-40) units/L ALT (7-56) units/L Alkaline Phosphatase (35-129) units/L Albumin (3.9-5) g/dL Crossmatch - Imaging and Cardiology CT Scan - head: report reviewed Assessment and Plan Assessment sepsis Acute renal failure hypernatremia Pancytopenia, acute on chronic Coagulopathy Hyperkalemia Pneumonia Hygroma Myelodysplastic syndrome diabetes Plan Admit to medicine Transfuse blood cell, platelet, fresh frozen plasma Consult hematology critical care , monitor CBC, chemistry, PT/INR Status post vancomycin, cefepime, start Zosyn, follow cultures Give Kayexalate now, Check fingersticks, DVT prophylaxis Neutropenic precautions Condition guarded, discussed with daughter Addendum DNR
[2019-08-09] MEDS ORDERED: SODIUM POLYSTYRENE 15 GM/60 ML ORAL LIQD PR ONE (23:05)
[2019-08-09] MEDS ORDERED: D5W/0.45% NACL 1,000 ML IV SCH (23:45)
[2019-08-09] MEDS ORDERED: SODIUM POLYSTYRENE 15 GM/60 ML ORAL LIQD ONE (23:49)
[2019-08-10] MEDS ORDERED: ONDANSETRON 4 MG/2 ML INJ IV PRN (00:41)
[2019-08-10] MEDS ORDERED: DEXTROSE 50% IN WATER (25GM) 50 ML SYRINGE IV PRN (00:46)
[2019-08-10 04:38] LABS: Calcium 8.1 mg/dL (8.4-10.2)
[2019-08-10] MEDS ORDERED: DEXTROSE 5% IN WATER 1,000 ML IV SCH (05:00)
[2019-08-10] MEDS: PIPERACIL-TAZO 2.25 GM/50 ML 2.25 GM/50 ML BAG IV SCH ×2 (05:04→11:33)
[2019-08-10 06:06] LABS: Hemoglobin 6.2 gm/dl (10.1-14.3); Mean Corpuscular HGB Conc 33 % (30-34); Mean Corpuscular Volume 91 fl (79-97); Red Blood Count 2.09 M/mm3 (3.65-5.03); Red Cell Distribution Width 18.1 % (13.2-15.2)
[2019-08-10 06:07] LABS: Hematocrit 18.9 % (30.3-42.9); Platelet Count 7 K/mm3 (140-440)
[2019-08-10 06:29] LABS: Calcium 7.9 mg/dL (8.4-10.2)
[2019-08-10 06:53] LABS: INR TNR (0.87-1.13); Partial Thromboplastin Time TNR Sec. (24.2-36.6)
[2019-08-10 07:05] LABS: Basophils % (Manual) 0 % (0.0-1.8); Total Cells Counted 100
[2019-08-10 07:06] LABS: Anisocytosis 1+; Platelet Estimate Consistent w Auto; Poikilocytosis 1+
[2019-08-10] MEDS: ACETAMINOPHEN 650 MG RECT SUPP PR PRN (07:35)
[2019-08-10] MEDS: INSULIN REGULAR, HUMAN 100 UNITS/1 ML IV SCH ×4 (07:44→18:58)
--- NOTE | 2019-08-10 08:47 | Progress Note ---
Assessment and Plan Assessment and plan: Patient is a 78 yo woman with a history of MDS with multiple blood transfusions, Depression, hypertension, immunocompromised state s/p chemotherapy with Dr. Gonsales presents to [facility] ED with AMS. She was found to have pneumonia I called daughter Katelin [phone] and son Pedro over the phone. They want her transfer to [facility] but don't have a doctor at [place]. I called [phone]. * pCXR IMPRESSION: 1. Nodular bilateral parenchymal disease again noted. Recommend chest CT for further evaluation in order to differentiate pulmonary metastases from multifocal pneumonia. * CT abd/pelvis without contrast IMPRESSION: 1. Masslike consolidations in the middle and right lower lobes are concerning for pneumonia, worsening relative to 07/28/2019. 2. Otherwise, no acute abnormality is identified within limitations of the exam, which include patient motion, streak artifact from overlying electrodes, and non-contrast technique. * CT head without contrast FINDINGS: BRAIN / INTRACRANIAL CONTENTS: There has been interval development of prominence of the CSF attenuation along the right frontal lobe from the previous CT which may represent a small hygroma. This finding measures approximately 4-5 mm in greatest transverse diameter. There is motion as well as beam hardening artifact from the adjacent calvarium but this finding appears to demonstrate CSF density at. Otherwise, there is no clear CT evidence of acute intracranial hemorrhage. There is mild to moderate cerebral white matter disease most consistent with microvascular angiopathy which appears unchanged at. There is mild cerebral atrophy. The ventricular system remains appropriate in size and configuration. ORBITS: No significant abnormality of visualized orbits. SINUSES / MASTOIDS: There is continued is scattered opacification within the ethmoid and right sphenoid sinuses. CRANIOCERVICAL JUNCTION: No significant abnormality. ADDITIONAL FINDINGS: None. IMPRESSION: 1. The findings are indicative of interval development of a small hygroma along the lateral right frontal lobe from 07/29/2019 as detailed above. There is continued mild to moderate microvascular angiopathy without clear CT evidence of acute intra-axial hemorrhage. ARF suspected due vasomotor nephropathy-treat with IVF, monitor bmp closely Acute hypoxic respiratory failure on 100% NRB FiO2: continue present management Sepsis Pneumonia-treat with IV abx, consult ID Acute encephalopathy-treat the pneumonia MDS-consult Dr. Gonsales Severe Pancytopenia treat the infection Neutropenic fever: treat with abx Severe Thrombocytopenia s/p 1 u of FFP Bilateral pneumonia immunocompromised Coagulopathic Severe Acute on chronic anemia s/p 2 units PRBC DVT ppx scd verified DNR status with kid CCT 35 minutes History Interval history: Patient was seen and examined. Follow-up on current diagnosis of AMS. No overnight events reported to me. Patient denies any chest pain, shortness breath, nausea/vomiting or severe headaches. Imaging, nursing note, chart, labs and old chart reviewed. Discussed with patient. Hospitalist Physical - Physical exam Narrative exam: Gen: critically ill, NAD, Awake, Alert, Orientated HEENT: NCAT, EOMI, PERRL, OP Clear Neck: supple, no adenopathy, no thyromegaly, no JVD CVS/Heart: RRR, normal S1S2, pulses present bilaterally Chest/Lungs: coarse bs bilateral, Symmetrical chest expansion, good air entry bilaterally GI/Abdomen: soft, NTND, good bowel sounds, no guarding or rebound /Bladder: no suprapubic tenderness, no CVA or paraspinal tenderness Extermity/Skin: no c/c/e, no obvious rash MSK: FROM x 4 Neuro: CN 2-12 grossly intact, no new focal deficits Psych: calm - Constitutional Vitals: Temp Pulse Resp BP Pulse Ox 98.6 F 104 H 22 116/52 100 08/10/19 07:00 08/10/19 08:13 08/10/19 08:13 08/10/19 08:10 08/10/19 08:13 Results - Labs CBC & Chem 7: 08/10/19 09:07 08/10/19 09:07 Labs: Laboratory Last Values WBC 0.3 K/mm3 (4.5-11.0) L* 08/10/19 05:41 RBC 2.09 M/mm3 (3.65-5.03) L 08/10/19 05:41 Hgb 6.2 gm/dl (10.1-14.3) L 08/10/19 05:41 Hct 18.9 % (30.3-42.9) L* 08/10/19 05:41 MCV 91 fl (79-97) 08/10/19 05:41 MCH 30 pg (28-32) 08/10/19 05:41 MCHC 33 % (30-34) 08/10/19 05:41 RDW 18.1 % (13.2-15.2) H 08/10/19 05:41 Plt Count 7 K/mm3 (140-440) L* 08/10/19 05:41 Lymph % (Auto) [employer] 08/10/19 05:41 Add Manual Diff Complete 08/10/19 05:41 Total Counted 100 08/10/19 05:41 Seg Neutrophils % [employer] 08/10/19 05:41 Seg Neuts % (Manual) 1.0 % (40.0-70.0) L 08/10/19 05:41 Band Neutrophils % 0 % 08/10/19 05:41 Lymphocytes % (Manual) 84.0 % (13.4-35.0) H 08/10/19 05:41 Reactive Lymphs % (Man) 0 % 08/10/19 05:41 Monocytes % (Manual) 10.0 % (0.0-7.3) H 08/10/19 05:41 Eosinophils % (Manual) 5.0 % (0.0-4.3) H 08/10/19 05:41 Basophils % (Manual) 0 % (0.0-1.8) 08/10/19 05:41 Metamyelocytes % 0 % 08/10/19 05:41 Myelocytes % 0 % 08/10/19 05:41 Promyelocytes % 0 % 08/10/19 05:41 Blast Cells % 0 % 08/10/19 05:41 Nucleated RBC % Not Reportable 08/10/19 05:41 Seg Neutrophils # Man 0.0 K/mm3 (1.8-7.7) L 08/10/19 05:41 Band Neutrophils # 0.0 K/mm3 08/10/19 05:41 Lymphocytes # (Manual) 0.3 K/mm3 (1.2-5.4) L 08/10/19 05:41 Abs React Lymphs (Man) 0.0 K/mm3 08/10/19 05:41 Monocytes # (Manual) 0.0 K/mm3 (0.0-0.8) 08/10/19 05:41 Eosinophils # (Manual) 0.0 K/mm3 (0.0-0.4) 08/10/19 05:41 Basophils # (Manual) 0.0 K/mm3 (0.0-0.1) 08/10/19 05:41 Metamyelocytes # 0.0 K/mm3 08/10/19 05:41 Myelocytes # 0.0 K/mm3 08/10/19 05:41 Promyelocytes # 0.0 K/mm3 08/10/19 05:41 Blast Cells # 0.0 K/mm3 08/10/19 05:41 WBC Morphology Not Reportable 08/10/19 05:41 Hypersegmented Neuts Not Reportable 08/10/19 05:41 Hyposegmented Neuts Not Reportable 08/10/19 05:41 Hypogranular Neuts Not Reportable 08/10/19 05:41 Smudge Cells Not Reportable 08/10/19 05:41 Toxic Granulation Not Reportable 08/10/19 05:41 Toxic Vacuolation Not Reportable 08/10/19 05:41 Dohle Bodies Not Reportable 08/10/19 05:41 Pelger-Huet Anomaly Not Reportable 08/10/19 05:41 Pao Rods Not Reportable 08/10/19 05:41 Platelet Estimate Consistent w auto 08/10/19 05:41 Clumped Platelets Not Reportable 08/10/19 05:41 Plt Clumps, EDTA Not Reportable 08/10/19 05:41 Large Platelets Not Reportable 08/10/19 05:41 Giant Platelets Not Reportable 08/10/19 05:41 Platelet Satelliting Not Reportable 08/10/19 05:41 Plt Morphology Comment Not Reportable 08/10/19 05:41 RBC Morphology Not Reportable 08/10/19 05:41 Dimorphic RBCs Not Reportable 08/10/19 05:41 Polychromasia Not Reportable 08/10/19 05:41 Hypochromasia Not Reportable 08/10/19 05:41 Poikilocytosis 1+ 08/10/19 05:41 Anisocytosis 1+ 08/10/19 05:41 Microcytosis Not Reportable 08/10/19 05:41 Macrocytosis Not Reportable 08/10/19 05:41 Spherocytes Not Reportable 08/10/19 05:41 Pappenheimer Bodies Not Reportable 08/10/19 05:41 Sickle Cells Not Reportable 08/10/19 05:41 Target Cells Not Reportable 08/10/19 05:41 Tear Drop Cells Not Reportable 08/10/19 05:41 Ovalocytes Not Reportable 08/10/19 05:41 Helmet Cells Not Reportable 08/10/19 05:41 [place] Bodies Not Reportable 08/10/19 05:41 [place] Rings Not Reportable 08/10/19 05:41 [place] Cells Not Reportable 08/10/19 05:41 Bite Cells Not Reportable 08/10/19 05:41 Crenated Cell Not Reportable 08/10/19 05:41 Elliptocytes Not Reportable 08/10/19 05:41 Acanthocytes (Spur) Not Reportable 08/10/19 05:41 Rouleaux Not Reportable 08/10/19 05:41 Hemoglobin C Crystals Not Reportable 08/10/19 05:41 Schistocytes Not Reportable 08/10/19 05:41 Malaria parasites Not Reportable 08/10/19 05:41 Chung Bodies Not Reportable 08/10/19 05:41 Hem Pathologist Commnt No 08/10/19 05:41 PT TNR 08/10/19 05:41 INR TNR 08/10/19 05:41 APTT TNR 08/10/19 05:41 Sodium 161 mmol/L (137-145) H* 08/10/19 05:41 Potassium 4.8 mmol/L (3.6-5.0) 08/10/19 05:41 Chloride 125.1 mmol/L (98-107) H 08/10/19 05:41 Carbon Dioxide 24 mmol/L (22-30) 08/10/19 05:41 Anion Gap 17 mmol/L 08/10/19 05:41 BUN 84 mg/dL (7-17) H 08/10/19 05:41 Creatinine 1.3 mg/dL (0.7-1.2) H 08/10/19 05:41 Estimated GFR 48 ml/min 08/10/19 05:41 BUN/Creatinine Ratio 65 % 08/10/19 05:41 Glucose 402 mg/dL (65-100) H 08/10/19 05:41 POC Glucose 409 (70-105) H 08/10/19 07:44 Lactic Acid 1.50 mmol/L (0.7-2.0) 08/10/19 05:41 Calcium 7.9 mg/dL (8.4-10.2) L 08/10/19 05:41 Phosphorus 4.40 mg/dL (2.5-4.5) 08/10/19 05:41 Magnesium 2.40 mg/dL (1.7-2.3) H 08/10/19 05:41 Total Bilirubin 2.40 mg/dL (0.1-1.2) H 08/09/19 17:45 AST < 5 units/L (5-40) L 08/09/19 17:45 ALT < 5 units/L (7-56) L 08/09/19 17:45 Alkaline Phosphatase 22 units/L (35-129) L 08/09/19 17:45 Troponin T < 0.010 ng/mL (0.00-0.029) 08/09/19 19:32 Total Protein 6.9 g/dL (6.3-8.2) 08/09/19 17:45 Albumin 2.1 g/dL (3.9-5) L 08/09/19 17:45 Albumin/Globulin Ratio 0.4 % 08/09/19 17:45 Urine Color Vanessa (Yellow) 08/09/19 19:06 Urine Turbidity Slightly-cloudy (Clear) 08/09/19 19:06 Urine pH 5.0 (5.0-7.0) 08/09/19 19:06 Ur Specific [place] 1.017 (1.003-1.030) 08/09/19 19:06 Urine Protein <15 mg/dl mg/dL (Negative) 08/09/19 19:06 Urine Glucose (UA) Neg mg/dL (Negative) 08/09/19 19:06 Urine Ketones Neg mg/dL (Negative) 08/09/19 19:06 Urine Blood Neg (Negative) 08/09/19 19:06 Urine Nitrite Neg (Negative) 08/09/19 19:06 Urine Bilirubin Neg (Negative) 08/09/19 19:06 Urine Urobilinogen < 2.0 mg/dL (<2.0) 08/09/19 19:06 Ur Leukocyte Esterase Tr (Negative) 08/09/19 19:06 Urine WBC (Auto) 1.0 /HPF (0.0-6.0) 08/09/19 19:06 Urine RBC (Auto) 1.0 /HPF (0.0-6.0) 08/09/19 19:06 U Epithel Cells (Auto) 1.0 /HPF (0-13.0) 08/09/19 19:06 Urine Bacteria (Auto) 1+ /HPF (Negative) 08/09/19 19:06 Urine Mucus Few /HPF 08/09/19 19:06 Urine Yeast (Budding) 1+ /HPF 08/09/19 19:06 Blood Type O POSITIVE 08/09/19 19:32 Antibody Screen Negative 08/09/19 19:32 Crossmatch See Detail 08/09/19 19:32 Active Medications - Current Medications Current Medications: Generic Name Dose Route Start Last Admin Trade Name Freq PRN Reason Stop Dose Admin Acetaminophen 650 mg 08/10/19 00:41 08/10/19 07:35 Tylenol ID 650 mg Q4H PRN Administration Pain MILD(1-3)/Fever >100.5/COLUNGA Dextrose 50 ml 08/10/19 00:46 D50w (25gm) Syringe IV Q30MIN PRN Hypoglycemia Protocol Piperacillin Sod/Tazobactam Sod 2.25 gm in 50 mls @ 100 mls/hr 08/10/19 03:00 08/10/19 05:04 Zosyn/Ns 2.25 Gm/50ml IV 100 mls/hr Q8H XOCHITL Administration Protocol Dextrose 1,000 mls @ 75 mls/hr 08/10/19 05:00 08/10/19 05:03 D5w IV 75 mls/hr DIRECT XOCHITL Administration Insulin Human Regular 0 units 08/10/19 08:00 08/10/19 07:44 Humulin R IV 8 units Q4HR XOCHITL Administration Protocol Ondansetron HCl 4 mg 08/10/19 00:41 Zofran IV Q8H PRN Nausea And Vomiting Sodium Chloride 10 ml 08/10/19 10:00 Sodium Chloride Flush Syringe 10 Ml IV BID XOCHITL Sodium Chloride 10 ml 08/10/19 00:41 Sodium Chloride Flush Syringe 10 Ml IV PRN PRN LINE FLUSH
[2019-08-10 09:50] LABS: Hemoglobin 6.4 gm/dl (10.1-14.3); Mean Corpuscular HGB Conc 34 % (30-34); Mean Corpuscular Volume 88 fl (79-97); Red Blood Count 2.15 M/mm3 (3.65-5.03); Red Cell Distribution Width 17.6 % (13.2-15.2)
[2019-08-10 10:04] LABS: Calcium 8.2 mg/dL (8.4-10.2)
[2019-08-10 10:08] LABS: Platelet Count 5 K/mm3 (140-440)
[2019-08-10 10:52] LABS: Basophils % (Manual) 0 % (0.0-1.8); Eosinophils % (Manual) 0 % (0.0-4.3); Monocytes % (Manual) 0 % (0.0-7.3); Total Cells Counted 5
[2019-08-10 10:53] LABS: Anisocytosis 1+; Platelet Estimate Consistent w Auto; Target Cells Few
--- NOTE | 2019-08-10 11:00 | Consultation ---
History of Present Illness - Reason for Consult Consult date: 08/10/19 Requesting physician: JAKE COLLINS - History of Present Illness 78 y/o female with End Stage Myelodysplastic syndrome admitted with worsening clinical symptoms. Patient was recently discharge to hospice as per last hospital notes as nothing more could be done for her MDS. Per the chart, karine nt revoked hospice and brought patient back to the hospital. She has pancytopenia and hypoxemia. Currently on Nonrebreather. Per the notes, daughter wishes to transfer patient to another facility but [facility] has already told them that transfer is unlikely without an accepting physician already. Medications and Allergies Allergies Allergy/AdvReac Type Severity Reaction Status Date / Time No Known Allergies Allergy Verified 06/06/19 08:16 Home Medications Medication Instructions Recorded Confirmed Last Taken Type Acetaminophen [Acetaminophen TAB] 500 mg PO Q6HR 05/26/19 08/09/19 07/13/19 History HYDROcodone/APAP 5-325 [[place] 1 each PO Q6HR PRN #10 tablet 05/28/19 08/09/19 07/13/19 Rx 5-325 mg TAB] Furosemide [Lasix TAB] 40 mg PO QDAY #30 tablet 08/03/19 08/09/19 Unknown Rx levoFLOXacin [Levaquin TAB] 750 mg PO QDAY #8 tablet 08/03/19 08/09/19 Unknown Rx metroNIDAZOLE [Flagyl TAB] 500 mg PO Q8HR #24 tablet 08/03/19 08/09/19 Unknown Rx Active Meds: Active Medications Acetaminophen (Tylenol) 650 mg HI Q4H PRN PRN Reason: Pain MILD(1-3)/Fever >100.5/COLUNGA Last Admin: 08/10/19 07:35 Dose: 650 mg Documented by: Dextrose (D50w (25gm) Syringe) 50 ml IV Q30MIN PRN; Protocol PRN Reason: Hypoglycemia Piperacillin Sod/Tazobactam Sod (Zosyn/Ns 2.25 Gm/50ml) 2.25 gm in 50 mls @ 100 mls/hr IV Q8H XOCHITL; Protocol Last Admin: 08/10/19 05:04 Dose: 100 mls/hr Documented by: Dextrose (D5w) 1,000 mls @ 75 mls/hr IV DIRECT XOCHITL Last Admin: 08/10/19 05:03 Dose: 75 mls/hr Documented by: Cefepime HCl (Cefepime/Ns 1 Gm/100 Ml) 1 gm in 100 mls @ 200 mls/hr IV Q12HR XOCHITL; Protocol Metronidazole (Flagyl 500 Mg/100 Ml) 500 mg in 100 mls @ 100 mls/hr IV Q8HR XOCHITL; Protocol Insulin Glargine (Lantus) 5 units SUB-Q QAMDIAB XOCHITL Insulin Human Regular (Humulin R) 0 units IV Q6HR XOCHITL; Protocol Ondansetron HCl (Zofran) 4 mg IV Q8H PRN PRN Reason: Nausea And Vomiting Sodium Chloride (Sodium Chloride Flush Syringe 10 Ml) 10 ml IV BID XOCHITL Sodium Chloride (Sodium Chloride Flush Syringe 10 Ml) 10 ml IV PRN PRN PRN Reason: LINE FLUSH Exam - Constitutional Vitals: Temp Pulse Resp BP Pulse Ox 98.6 F 98 H 24 116/52 100 08/10/19 07:00 08/10/19 09:20 08/10/19 09:20 08/10/19 09:20 08/10/19 09:44 Results - Labs CBC & Chem 7: 08/10/19 09:07 08/10/19 09:07 Labs: Abnormal lab results 08/09/19 08/09/19 08/09/19 Range/Units 17:45 17:45 17:45 WBC 0.3 L* (4.5-11.0) K/mm3 RBC 1.40 L (3.65-5.03) M/mm3 Hgb 4.3 L* (10.1-14.3) gm/dl Hct 13.1 L* (30.3-42.9) % RDW 17.0 H (13.2-15.2) % Plt Count 6 L* (140-440) K/mm3 Seg Neuts % (Manual) 2.0 L (40.0-70.0) % Lymphocytes % (Manual) 92.0 H (13.4-35.0) % Monocytes % (Manual) (0.0-7.3) % Eosinophils % (Manual) (0.0-4.3) % Seg Neutrophils # Man 0.0 L (1.8-7.7) K/mm3 Lymphocytes # (Manual) 0.3 L (1.2-5.4) K/mm3 PT 50.4 H (12.2-14.9) Sec. INR 5.76 H* (0.87-1.13) APTT 47.4 H (24.2-36.6) Sec. Sodium 159 H (137-145) mmol/L Potassium 5.4 H (3.6-5.0) mmol/L Chloride 118.1 H (98-107) mmol/L Carbon Dioxide 16 L (22-30) mmol/L BUN 77 H (7-17) mg/dL Creatinine 1.4 H (0.7-1.2) mg/dL Glucose 291 H (65-100) mg/dL POC Glucose (70-105) Lactic Acid (0.7-2.0) mmol/L Calcium (8.4-10.2) mg/dL Magnesium (1.7-2.3) mg/dL Total Bilirubin 2.40 H (0.1-1.2) mg/dL AST < 5 L (5-40) units/L ALT < 5 L (7-56) units/L Alkaline Phosphatase 22 L (35-129) units/L Albumin 2.1 L (3.9-5) g/dL Crossmatch 08/09/19 08/09/19 08/09/19 Range/Units 17:45 19:32 19:32 WBC (4.5-11.0) K/mm3 RBC (3.65-5.03) M/mm3 Hgb (10.1-14.3) gm/dl Hct (30.3-42.9) % RDW (13.2-15.2) % Plt Count (140-440) K/mm3 Seg Neuts % (Manual) (40.0-70.0) % Lymphocytes % (Manual) (13.4-35.0) % Monocytes % (Manual) (0.0-7.3) % Eosinophils % (Manual) (0.0-4.3) % Seg Neutrophils # Man (1.8-7.7) K/mm3 Lymphocytes # (Manual) (1.2-5.4) K/mm3 PT (12.2-14.9) Sec. INR (0.87-1.13) APTT (24.2-36.6) Sec. Sodium (137-145) mmol/L Potassium (3.6-5.0) mmol/L Chloride (98-107) mmol/L Carbon Dioxide (22-30) mmol/L BUN (7-17) mg/dL Creatinine (0.7-1.2) mg/dL Glucose (65-100) mg/dL POC Glucose (70-105) Lactic Acid 13.50 H* 14.50 H* (0.7-2.0) mmol/L Calcium (8.4-10.2) mg/dL Magnesium (1.7-2.3) mg/dL Total Bilirubin (0.1-1.2) mg/dL AST (5-40) units/L ALT (7-56) units/L Alkaline Phosphatase (35-129) units/L Albumin (3.9-5) g/dL Crossmatch See Detail 08/09/19 08/09/19 08/09/19 Range/Units 19:51 20:35 21:08 WBC (4.5-11.0) K/mm3 RBC (3.65-5.03) M/mm3 Hgb (10.1-14.3) gm/dl Hct (30.3-42.9) % RDW (13.2-15.2) % Plt Count (140-440) K/mm3 Seg Neuts % (Manual) (40.0-70.0) % Lymphocytes % (Manual) (13.4-35.0) % Monocytes % (Manual) (0.0-7.3) % Eosinophils % (Manual) (0.0-4.3) % Seg Neutrophils # Man (1.8-7.7) K/mm3 Lymphocytes # (Manual) (1.2-5.4) K/mm3 PT 56.4 H (12.2-14.9) Sec. INR 6.67 H* (0.87-1.13) APTT 40.7 H (24.2-36.6) Sec. Sodium (137-145) mmol/L Potassium (3.6-5.0) mmol/L Chloride (98-107) mmol/L Carbon Dioxide (22-30) mmol/L BUN (7-17) mg/dL Creatinine (0.7-1.2) mg/dL Glucose (65-100) mg/dL POC Glucose 188 H (70-105) Lactic Acid 13.80 H* (0.7-2.0) mmol/L Calcium (8.4-10.2) mg/dL Magnesium (1.7-2.3) mg/dL Total Bilirubin (0.1-1.2) mg/dL AST (5-40) units/L ALT (7-56) units/L Alkaline Phosphatase (35-129) units/L Albumin (3.9-5) g/dL Crossmatch 08/09/19 08/10/19 08/10/19 Range/Units 21:44 03:52 04:00 WBC (4.5-11.0) K/mm3 RBC (3.65-5.03) M/mm3 Hgb (10.1-14.3) gm/dl Hct (30.3-42.9) % RDW (13.2-15.2) % Plt Count (140-440) K/mm3 Seg Neuts % (Manual) (40.0-70.0) % Lymphocytes % (Manual) (13.4-35.0) % Monocytes % (Manual) (0.0-7.3) % Eosinophils % (Manual) (0.0-4.3) % Seg Neutrophils # Man (1.8-7.7) K/mm3 Lymphocytes # (Manual) (1.2-5.4) K/mm3 PT (12.2-14.9) Sec. INR (0.87-1.13) APTT (24.2-36.6) Sec. Sodium 161 H* (137-145) mmol/L Potassium (3.6-5.0) mmol/L Chloride 124.6 H (98-107) mmol/L Carbon Dioxide (22-30) mmol/L BUN 81 H (7-17) mg/dL Creatinine 1.4 H (0.7-1.2) mg/dL Glucose 377 H (65-100) mg/dL POC Glucose 364 H (70-105) Lactic Acid 16.30 H* (0.7-2.0) mmol/L Calcium 8.1 L (8.4-10.2) mg/dL Magnesium (1.7-2.3) mg/dL Total Bilirubin (0.1-1.2) mg/dL AST (5-40) units/L ALT (7-56) units/L Alkaline Phosphatase (35-129) units/L Albumin (3.9-5) g/dL Crossmatch 08/10/19 08/10/19 08/10/19 Range/Units 05:41 05:41 07:44 WBC 0.3 L* (4.5-11.0) K/mm3 RBC 2.09 L (3.65-5.03) M/mm3 Hgb 6.2 L (10.1-14.3) gm/dl Hct 18.9 L* (30.3-42.9) % RDW 18.1 H (13.2-15.2) % Plt Count 7 L* (140-440) K/mm3 Seg Neuts % (Manual) 1.0 L (40.0-70.0) % Lymphocytes % (Manual) 84.0 H (13.4-35.0) % Monocytes % (Manual) 10.0 H (0.0-7.3) % Eosinophils % (Manual) 5.0 H (0.0-4.3) % Seg Neutrophils # Man 0.0 L (1.8-7.7) K/mm3 Lymphocytes # (Manual) 0.3 L (1.2-5.4) K/mm3 PT (12.2-14.9) Sec. INR (0.87-1.13) APTT (24.2-36.6) Sec. Sodium 161 H* (137-145) mmol/L Potassium (3.6-5.0) mmol/L Chloride 125.1 H (98-107) mmol/L Carbon Dioxide (22-30) mmol/L BUN 84 H (7-17) mg/dL Creatinine 1.3 H (0.7-1.2) mg/dL Glucose 402 H (65-100) mg/dL POC Glucose 409 H (70-105) Lactic Acid (0.7-2.0) mmol/L Calcium 7.9 L (8.4-10.2) mg/dL Magnesium 2.40 H (1.7-2.3) mg/dL Total Bilirubin (0.1-1.2) mg/dL AST (5-40) units/L ALT (7-56) units/L Alkaline Phosphatase (35-129) units/L Albumin (3.9-5) g/dL Crossmatch 08/10/19 08/10/19 Range/Units 09:07 09:07 WBC 0.1 L* (4.5-11.0) K/mm3 RBC 2.15 L (3.65-5.03) M/mm3 Hgb 6.4 L (10.1-14.3) gm/dl Hct 19.0 L* (30.3-42.9) % RDW 17.6 H (13.2-15.2) % Plt Count 5 L* (140-440) K/mm3 Seg Neuts % (Manual) 0 L (40.0-70.0) % Lymphocytes % (Manual) 100.0 H (13.4-35.0) % Monocytes % (Manual) (0.0-7.3) % Eosinophils % (Manual) (0.0-4.3) % Seg Neutrophils # Man 0.0 L (1.8-7.7) K/mm3 Lymphocytes # (Manual) 0.1 L (1.2-5.4) K/mm3 PT (12.2-14.9) Sec. INR (0.87-1.13) APTT (24.2-36.6) Sec. Sodium 164 H* (137-145) mmol/L Potassium (3.6-5.0) mmol/L Chloride 126.9 H (98-107) mmol/L Carbon Dioxide (22-30) mmol/L BUN 87 H (7-17) mg/dL Creatinine 1.4 H (0.7-1.2) mg/dL Glucose 429 H (65-100) mg/dL POC Glucose (70-105) Lactic Acid (0.7-2.0) mmol/L Calcium 8.2 L (8.4-10.2) mg/dL Magnesium (1.7-2.3) mg/dL Total Bilirubin (0.1-1.2) mg/dL AST (5-40) units/L ALT (7-56) units/L Alkaline Phosphatase (35-129) units/L Albumin (3.9-5) g/dL Crossmatch - Imaging and Cardiology Chest x-ray: image reviewed Assessment and Plan 78 y/o female with end stage myelodysplastic syndrome Does not meet ICU requirements Patient remains an AND Will transfer to [facility] Signing off.
[2019-08-10] MEDS: INSULIN GLARGINE 100 UNITS/ML SUB-Q SCH (11:27)
[2019-08-10] MEDS ORDERED: SODIUM CHLORIDE 0.9% 500 ML 500 ML IV ONE (13:00)
[2019-08-10] MEDS ORDERED: metroNIDAZOLE/NS 500 MG/100 ML 500 MG/100 ML BAG IV SCH (14:00)
[2019-08-10 14:31] LABS: Calcium 8.2 mg/dL (8.4-10.2)
--- NOTE | 2019-08-10 15:46 | Consultation ---
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 Gonsales known to us from multiple recent hospitalizations. Most recently discharged on 08/03/2019 following acute diverticulitis treated with IV ant ibiotics and then discharged on PO levofloxacin. Per history, patient was recently placed on hospice however patient became altered at home and daughter revoked the hospice and brought the patient to the emergency room. Upon arrival, noted to have a fever of 102.3F. Confused. Also hypoxic requiring NRB. Review of Systems: AMS, limited ROS. Medications and Allergies Allergies Allergy/AdvReac Type Severity Reaction Status Date / Time No Known Allergies Allergy Verified 06/06/19 08:16 Home Medications Medication Instructions Recorded Confirmed Last Taken Type Acetaminophen [Acetaminophen TAB] 500 mg PO Q6HR 05/26/19 08/09/19 07/13/19 History HYDROcodone/APAP 5-325 [[place] 1 each PO Q6HR PRN #10 tablet 05/28/19 08/09/19 07/13/19 Rx 5-325 mg TAB] Furosemide [Lasix TAB] 40 mg PO QDAY #30 tablet 08/03/19 08/09/19 Unknown Rx levoFLOXacin [Levaquin TAB] 750 mg PO QDAY #8 tablet 08/03/19 08/09/19 Unknown Rx metroNIDAZOLE [Flagyl TAB] 500 mg PO Q8HR #24 tablet 08/03/19 08/09/19 Unknown Rx Active Meds: Active Medications Acetaminophen (Tylenol) 650 mg ID Q4H PRN PRN Reason: Pain MILD(1-3)/Fever >100.5/COLUNGA Last Admin: 08/10/19 07:35 Dose: 650 mg Documented by: Dextrose (D50w (25gm) Syringe) 50 ml IV Q30MIN PRN; Protocol PRN Reason: Hypoglycemia Piperacillin Sod/Tazobactam Sod (Zosyn/Ns 2.25 Gm/50ml) 2.25 gm in 50 mls @ 100 mls/hr IV Q8H XOCHITL; Protocol Last Admin: 08/10/19 11:33 Dose: 100 mls/hr Documented by: Dextrose (D5w) 1,000 mls @ 75 mls/hr IV DIRECT XOCHITL Last Admin: 08/10/19 05:03 Dose: 75 mls/hr Documented by: Cefepime HCl (Cefepime/Ns 1 Gm/100 Ml) 1 gm in 100 mls @ 200 mls/hr IV Q12HR XOCHITL; Protocol Metronidazole (Flagyl 500 Mg/100 Ml) 500 mg in 100 mls @ 100 mls/hr IV Q8HR XOCHITL; Protocol Last Admin: 08/10/19 15:22 Dose: 100 mls/hr Documented by: Insulin Glargine (Lantus) 5 units SUB-Q QAMDIAB XOCHITL Last Admin: 08/10/19 11:27 Dose: 5 units Documented by: Insulin Human Regular (Humulin R) 0 units IV Q6HR XOCHITL; Protocol Last Admin: 08/10/19 11:27 Dose: 8 units Documented by: Ondansetron HCl (Zofran) 4 mg IV Q8H PRN PRN Reason: Nausea And Vomiting Sodium Chloride (Sodium Chloride Flush Syringe 10 Ml) 10 ml IV BID XOCHITL Last Admin: 08/10/19 11:33 Dose: 10 ml Documented by: Sodium Chloride (Sodium Chloride Flush Syringe 10 Ml) 10 ml IV PRN PRN PRN Reason: LINE FLUSH Physical Examination - Physical Exam Narrative exam: Physical Exam: Constitutional: drowsy, can be awakened, mumbling few words. on NRB Head, Ears, Nose: Normocephalic, atraumatic. External ears, nose normal Eyes: Conjunctivae/corneas clear. No icterus. No ptosis. Neck: Supple, no meningeal signs Oral: no thrush Cardiovascular: S1, S2 normal. Respiratory: few rhonchi b/l GI: Soft, non-tender; bowel sounds normal. No peritoneal signs Musculoskeletal: No pedal edema, no cyanosis. Left arm PICC + Skin: No rash or abscess Hem/Lymphatic: No palpable cervical or supraclavicular nodes. No lymphangitis Psych: no agitation Neurological: drowsy, can be awakened, mumbling few words - Constitutional Vitals: Vital Signs Temp Pulse Resp BP Pulse Ox 97.9 F 82 26 H 106/39 80 L 08/10/19 15:42 08/10/19 15:17 08/10/19 15:17 08/10/19 15:17 08/10/19 15:17 Temperature -Last 24 Hours Temperature 97.9 F Temperature 98.3 F Temperature 98.4 F Temperature 98.3 F Temperature 98.3 F Temperature 97.6 F Temperature 98.2 F Temperature 98.1 F Temperature 98.9 F Temperature 98.8 F Temperature 98.6 F Temperature 98.4 F Temperature 99.4 F Temperature 98.6 F Temperature 98.7 F Temperature 98.3 F Temperature 98.8 F Temperature 98.7 F Temperature 98.8 F Temperature 98.8 F Temperature 98.8 F Temperature 98.7 F Temperature 98.7 F Temperature 99 F Temperature 99 F Temperature 99 F Temperature 99 F Temperature 99 F Temperature 99 F Temperature 99 F Temperature 99.5 F Temperature 100.2 F Temperature 102.3 F Results - Labs CBC & Chem 7: 08/10/19 09:07 08/10/19 13:37 Labs: Abnormal lab results 08/09/19 08/09/19 08/09/19 Range/Units 17:45 17:45 17:45 WBC 0.3 L* (4.5-11.0) K/mm3 RBC 1.40 L (3.65-5.03) M/mm3 Hgb 4.3 L* (10.1-14.3) gm/dl Hct 13.1 L* (30.3-42.9) % RDW 17.0 H (13.2-15.2) % Plt Count 6 L* (140-440) K/mm3 Seg Neuts % (Manual) 2.0 L (40.0-70.0) % Lymphocytes % (Manual) 92.0 H (13.4-35.0) % Monocytes % (Manual) (0.0-7.3) % Eosinophils % (Manual) (0.0-4.3) % Seg Neutrophils # Man 0.0 L (1.8-7.7) K/mm3 Lymphocytes # (Manual) 0.3 L (1.2-5.4) K/mm3 PT 50.4 H (12.2-14.9) Sec. INR 5.76 H* (0.87-1.13) APTT 47.4 H (24.2-36.6) Sec. Sodium 159 H (137-145) mmol/L Potassium 5.4 H (3.6-5.0) mmol/L Chloride 118.1 H (98-107) mmol/L Carbon Dioxide 16 L (22-30) mmol/L BUN 77 H (7-17) mg/dL Creatinine 1.4 H (0.7-1.2) mg/dL Glucose 291 H (65-100) mg/dL POC Glucose (70-105) Lactic Acid (0.7-2.0) mmol/L Calcium (8.4-10.2) mg/dL Magnesium (1.7-2.3) mg/dL Total Bilirubin 2.40 H (0.1-1.2) mg/dL AST < 5 L (5-40) units/L ALT < 5 L (7-56) units/L Alkaline Phosphatase 22 L (35-129) units/L Albumin 2.1 L (3.9-5) g/dL Crossmatch 08/09/19 08/09/19 08/09/19 Range/Units 17:45 19:32 19:32 WBC (4.5-11.0) K/mm3 RBC (3.65-5.03) M/mm3 Hgb (10.1-14.3) gm/dl Hct (30.3-42.9) % RDW (13.2-15.2) % Plt Count (140-440) K/mm3 Seg Neuts % (Manual) (40.0-70.0) % Lymphocytes % (Manual) (13.4-35.0) % Monocytes % (Manual) (0.0-7.3) % Eosinophils % (Manual) (0.0-4.3) % Seg Neutrophils # Man (1.8-7.7) K/mm3 Lymphocytes # (Manual) (1.2-5.4) K/mm3 PT (12.2-14.9) Sec. INR (0.87-1.13) APTT (24.2-36.6) Sec. Sodium (137-145) mmol/L Potassium (3.6-5.0) mmol/L Chloride (98-107) mmol/L Carbon Dioxide (22-30) mmol/L BUN (7-17) mg/dL Creatinine (0.7-1.2) mg/dL Glucose (65-100) mg/dL POC Glucose (70-105) Lactic Acid 13.50 H* 14.50 H* (0.7-2.0) mmol/L Calcium (8.4-10.2) mg/dL Magnesium (1.7-2.3) mg/dL Total Bilirubin (0.1-1.2) mg/dL AST (5-40) units/L ALT (7-56) units/L Alkaline Phosphatase (35-129) units/L Albumin (3.9-5) g/dL Crossmatch See Detail 08/09/19 08/09/19 08/09/19 Range/Units 19:51 20:35 21:08 WBC (4.5-11.0) K/mm3 RBC (3.65-5.03) M/mm3 Hgb (10.1-14.3) gm/dl Hct (30.3-42.9) % RDW (13.2-15.2) % Plt Count (140-440) K/mm3 Seg Neuts % (Manual) (40.0-70.0) % Lymphocytes % (Manual) (13.4-35.0) % Monocytes % (Manual) (0.0-7.3) % Eosinophils % (Manual) (0.0-4.3) % Seg Neutrophils # Man (1.8-7.7) K/mm3 Lymphocytes # (Manual) (1.2-5.4) K/mm3 PT 56.4 H (12.2-14.9) Sec. INR 6.67 H* (0.87-1.13) APTT 40.7 H (24.2-36.6) Sec. Sodium (137-145) mmol/L Potassium (3.6-5.0) mmol/L Chloride (98-107) mmol/L Carbon Dioxide (22-30) mmol/L BUN (7-17) mg/dL Creatinine (0.7-1.2) mg/dL Glucose (65-100) mg/dL POC Glucose 188 H (70-105) Lactic Acid 13.80 H* (0.7-2.0) mmol/L Calcium (8.4-10.2) mg/dL Magnesium (1.7-2.3) mg/dL Total Bilirubin (0.1-1.2) mg/dL AST (5-40) units/L ALT (7-56) units/L Alkaline Phosphatase (35-129) units/L Albumin (3.9-5) g/dL Crossmatch 08/09/19 08/10/19 08/10/19 Range/Units 21:44 03:52 04:00 WBC (4.5-11.0) K/mm3 RBC (3.65-5.03) M/mm3 Hgb (10.1-14.3) gm/dl Hct (30.3-42.9) % RDW (13.2-15.2) % Plt Count (140-440) K/mm3 Seg Neuts % (Manual) (40.0-70.0) % Lymphocytes % (Manual) (13.4-35.0) % Monocytes % (Manual) (0.0-7.3) % Eosinophils % (Manual) (0.0-4.3) % Seg Neutrophils # Man (1.8-7.7) K/mm3 Lymphocytes # (Manual) (1.2-5.4) K/mm3 PT (12.2-14.9) Sec. INR (0.87-1.13) APTT (24.2-36.6) Sec. Sodium 161 H* (137-145) mmol/L Potassium (3.6-5.0) mmol/L Chloride 124.6 H (98-107) mmol/L Carbon Dioxide (22-30) mmol/L BUN 81 H (7-17) mg/dL Creatinine 1.4 H (0.7-1.2) mg/dL Glucose 377 H (65-100) mg/dL POC Glucose 364 H (70-105) Lactic Acid 16.30 H* (0.7-2.0) mmol/L Calcium 8.1 L (8.4-10.2) mg/dL Magnesium (1.7-2.3) mg/dL Total Bilirubin (0.1-1.2) mg/dL AST (5-40) units/L ALT (7-56) units/L Alkaline Phosphatase (35-129) units/L Albumin (3.9-5) g/dL Crossmatch 08/10/19 08/10/19 08/10/19 Range/Units 05:41 05:41 07:44 WBC 0.3 L* (4.5-11.0) K/mm3 RBC 2.09 L (3.65-5.03) M/mm3 Hgb 6.2 L (10.1-14.3) gm/dl Hct 18.9 L* (30.3-42.9) % RDW 18.1 H (13.2-15.2) % Plt Count 7 L* (140-440) K/mm3 Seg Neuts % (Manual) 1.0 L (40.0-70.0) % Lymphocytes % (Manual) 84.0 H (13.4-35.0) % Monocytes % (Manual) 10.0 H (0.0-7.3) % Eosinophils % (Manual) 5.0 H (0.0-4.3) % Seg Neutrophils # Man 0.0 L (1.8-7.7) K/mm3 Lymphocytes # (Manual) 0.3 L (1.2-5.4) K/mm3 PT (12.2-14.9) Sec. INR (0.87-1.13) APTT (24.2-36.6) Sec. Sodium 161 H* (137-145) mmol/L Potassium (3.6-5.0) mmol/L Chloride 125.1 H (98-107) mmol/L Carbon Dioxide (22-30) mmol/L BUN 84 H (7-17) mg/dL Creatinine 1.3 H (0.7-1.2) mg/dL Glucose 402 H (65-100) mg/dL POC Glucose 409 H (70-105) Lactic Acid (0.7-2.0) mmol/L Calcium 7.9 L (8.4-10.2) mg/dL Magnesium 2.40 H (1.7-2.3) mg/dL Total Bilirubin (0.1-1.2) mg/dL AST (5-40) units/L ALT (7-56) units/L Alkaline Phosphatase (35-129) units/L Albumin (3.9-5) g/dL Crossmatch 08/10/19 08/10/19 08/10/19 Range/Units 09:07 09:07 11:15 WBC 0.1 L* (4.5-11.0) K/mm3 RBC 2.15 L (3.65-5.03) M/mm3 Hgb 6.4 L (10.1-14.3) gm/dl Hct 19.0 L* (30.3-42.9) % RDW 17.6 H (13.2-15.2) % Plt Count 5 L* (140-440) K/mm3 Seg Neuts % (Manual) 0 L (40.0-70.0) % Lymphocytes % (Manual) 100.0 H (13.4-35.0) % Monocytes % (Manual) (0.0-7.3) % Eosinophils % (Manual) (0.0-4.3) % Seg Neutrophils # Man 0.0 L (1.8-7.7) K/mm3 Lymphocytes # (Manual) 0.1 L (1.2-5.4) K/mm3 PT (12.2-14.9) Sec. INR (0.87-1.13) APTT (24.2-36.6) Sec. Sodium 164 H* (137-145) mmol/L Potassium (3.6-5.0) mmol/L Chloride 126.9 H (98-107) mmol/L Carbon Dioxide (22-30) mmol/L BUN 87 H (7-17) mg/dL Creatinine 1.4 H (0.7-1.2) mg/dL Glucose 429 H (65-100) mg/dL POC Glucose 436 H (70-105) Lactic Acid (0.7-2.0) mmol/L Calcium 8.2 L (8.4-10.2) mg/dL Magnesium (1.7-2.3) mg/dL Total Bilirubin (0.1-1.2) mg/dL AST (5-40) units/L ALT (7-56) units/L Alkaline Phosphatase (35-129) units/L Albumin (3.9-5) g/dL Crossmatch 08/10/19 Range/Units 13:37 WBC (4.5-11.0) K/mm3 RBC (3.65-5.03) M/mm3 Hgb (10.1-14.3) gm/dl Hct (30.3-42.9) % RDW (13.2-15.2) % Plt Count (140-440) K/mm3 Seg Neuts % (Manual) (40.0-70.0) % Lymphocytes % (Manual) (13.4-35.0) % Monocytes % (Manual) (0.0-7.3) % Eosinophils % (Manual) (0.0-4.3) % Seg Neutrophils # Man (1.8-7.7) K/mm3 Lymphocytes # (Manual) (1.2-5.4) K/mm3 PT (12.2-14.9) Sec. INR (0.87-1.13) APTT (24.2-36.6) Sec. Sodium 163 H* (137-145) mmol/L Potassium (3.6-5.0) mmol/L Chloride 128.4 H (98-107) mmol/L Carbon Dioxide (22-30) mmol/L BUN 84 H (7-17) mg/dL Creatinine 1.4 H (0.7-1.2) mg/dL Glucose 380 H (65-100) mg/dL POC Glucose (70-105) Lactic Acid (0.7-2.0) mmol/L Calcium 8.2 L (8.4-10.2) mg/dL Magnesium (1.7-2.3) mg/dL Total Bilirubin (0.1-1.2) mg/dL AST (5-40) units/L ALT (7-56) units/L Alkaline Phosphatase (35-129) units/L Albumin (3.9-5) g/dL Crossmatch - Imaging and Cardiology Chest x-ray: report reviewed, image reviewed (nodular infiltrate) CT scan - abdomen: report reviewed, image reviewed (CT abdomen shows R middle and lower lobe pneumonia.) CT Scan - head: report reviewed, image reviewed (small right frontal lobe hygroma.) Assessment and Plan Cultures: 08/09/2019 blood cultures: In process A/P: 78-year-old female with 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 Gonsales known to us from multiple recent hospitalizations. Most recently discharged on 08/03/2019 following acute diverticulitis treated with IV antibiotics and then discharged on PO levofloxacin, was on home hospice, then hospice reverted and admitted with: 1) R sided pneumonia: remains at high risk for opportunistic infections given chronic neutropenia. On IV Cefepime, will add Vancomycin. Her overall prognosis is extremely poor, I strongly encourage hospice. She is at risk of invasive mold infection, will order Fungitell and Aspergillus galactomannan. Given the nodular infiltrate, will add empiric voriconazole. 2) MDS, immunocompromised host, severe pancytopenia: ANC is zero. 3) Acute hypoxic respiratory failure 4) Acute encephalopathy: Sodium very high at 160. Recs: continue empiric cefepime added IV vancomycin added voriconazole She is at risk of invasive mold infection, will order Fungitell and Aspergillus galactomannan extremely poor prognosis. Recommend hospice/palliative care. Dara Crook MD, FACP [facility] C: [phone] O: [phone] F: [phone]
[2019-08-10] MEDS ORDERED: VANCOMYCIN PHARMACY TO DOSE IV SCH (16:00)
[2019-08-10] MEDS: VORICONAZOLE 200 MG TAB PO SCH ×2 (16:25→22:00)
[2019-08-10] MEDS ORDERED: VANCOMYCIN 750 MG in SODIUM CHLORIDE 0.9% 250ML 250 ML IV SCH (20:00)
--- NOTE | 2019-08-10 21:31 | Event Note ---
Date: 08/10/19 [id number]
[2019-08-10] MEDS: CEFEPIME/NS 1 GM/100 ML 1 GM/100 ML BAG IV SCH (22:26)
[2019-08-11] MEDS: INSULIN REGULAR, HUMAN 100 UNITS/1 ML IV SCH ×2 (04:37→14:54)
--- NOTE | 2019-08-11 07:37 | Hem/Onc Progress Note ---
Assessment and Plan 1. History of anemia, leukopenia, thrombocytopenia secondary to myelodysplastic syndrome. The patient has had 3 cycles of chemotherapy; however, counts have not improved, usually we wait for 4 cycles. She has not been able to get in because of her recurrent hospitalization. The patient was in hospice, but this was revoked as per the daughter, she did not understand hospice. The patient has been seen by Infectious Disease team. She has had prolonged cytopenia, which did not recover in spite of supportive care of GCSF. She has been getting periodic blood transfusion and platelet transfusion. Bone marrow biopsy done last in March had shown 90%-100% cellularity with myelodysplastic syndrome. There was a plan to repeat bone marrow biopsy; however, this could not be done because in the hospital, IR did not do it because of cytopenia. 2. Splenomegaly with spleen lesions. 3. History of methicillin-resistant Staphylococcus aureus. 4. History of diabetes. 5. History of hypertension. I will talk to the family members. At this time, she is on oxygen support. 6. History of confusion. 7. Hygroma found on CT head. d/w dr Nikhil Carlos transfer being looked into pt had fever poor prognosis - Patient Problems (1) Myelodysplastic syndrome Status: Chronic Subjective Date of service: 08/11/19 Principal diagnosis: MDS Interval history: on o2 Objective - Exam Narrative Exam: Pain - n/a General appearance - lethargic Performance status dependent Eyes - no icterus ENT - no bleeding - on o2 LNs cervical not palpable Neck - no LN Respiratory SOB Breath sounds - decreased air entry CVS S1 S2 + Extremities no edema General GI Soft Rectal deferred female - deferred Skin warm Musculoskeletal - lethargic Neurologically lethargic - Constitutional Vitals: Last Vital Signs Temp 102.5 F H 08/11/19 03:09 Pulse 124 H 08/11/19 03:09 Resp 20 08/11/19 03:09 BP 132/67 08/11/19 03:09 Pulse Ox 100 08/11/19 03:09 - Labs Lab Results: Laboratory Results - last 24 hr 08/09/19 08/10/19 08/10/19 19:32 07:44 09:07 WBC 0.1 L* RBC 2.15 L Hgb 6.4 L Hct 19.0 L* MCV 88 MCH 30 MCHC 34 RDW 17.6 H Plt Count 5 L* Lymph % (Auto) Licensed Tax Consultant Add Manual Diff Complete Total Counted 5 Seg Neutrophils % Licensed Tax Consultant Seg Neuts % (Manual) 0 L Band Neutrophils % 0 Lymphocytes % (Manual) 100.0 H Reactive Lymphs % (Man) 0 Monocytes % (Manual) 0 Eosinophils % (Manual) 0 Basophils % (Manual) 0 Metamyelocytes % 0 Myelocytes % 0 Promyelocytes % 0 Blast Cells % 0 Nucleated RBC % Not Reportable Seg Neutrophils # Man 0.0 L Band Neutrophils # 0.0 Lymphocytes # (Manual) 0.1 L Abs React Lymphs (Man) 0.0 Monocytes # (Manual) 0.0 Eosinophils # (Manual) 0.0 Basophils # (Manual) 0.0 Metamyelocytes # 0.0 Myelocytes # 0.0 Promyelocytes # 0.0 Blast Cells # 0.0 WBC Morphology Not Reportable Hypersegmented Neuts Not Reportable Hyposegmented Neuts Not Reportable Hypogranular Neuts Not Reportable Smudge Cells Not Reportable Toxic Granulation Not Reportable Toxic Vacuolation Not Reportable Dohle Bodies Not Reportable Pelger-Huet Anomaly Not Reportable Pao Rods Not Reportable Platelet Estimate Consistent w auto Clumped Platelets Not Reportable Plt Clumps, EDTA Not Reportable Large Platelets Not Reportable Giant Platelets Not Reportable Platelet Satelliting Not Reportable Plt Morphology Comment Not Reportable RBC Morphology Not Reportable Dimorphic RBCs Not Reportable Polychromasia Not Reportable Hypochromasia Not Reportable Poikilocytosis Not Reportable Anisocytosis 1+ Microcytosis Not Reportable Macrocytosis Not Reportable Spherocytes Not Reportable Pappenheimer Bodies Not Reportable Sickle Cells Not Reportable Target Cells Few Tear Drop Cells Not Reportable Ovalocytes Not Reportable Helmet Cells Not Reportable [place] Bodies Not Reportable Denair Rings Not Reportable Manuel Cells Not Reportable Bite Cells Not Reportable Crenated Cell Not Reportable Elliptocytes Not Reportable Acanthocytes (Spur) Not Reportable Rouleaux Not Reportable Hemoglobin C Crystals Not Reportable Schistocytes Not Reportable Malaria parasites Not Reportable Chung Bodies Not Reportable Hem Pathologist Commnt No Sodium Potassium Chloride Carbon Dioxide Anion Gap BUN Creatinine Estimated GFR BUN/Creatinine Ratio Glucose POC Glucose 409 H Calcium Blood Type O POSITIVE Antibody Screen Negative Crossmatch See Detail 08/10/19 08/10/19 08/10/19 09:07 11:15 13:37 WBC RBC Hgb Hct MCV MCH MCHC RDW Plt Count Lymph % (Auto) Add Manual Diff Total Counted Seg Neutrophils % Seg Neuts % (Manual) Band Neutrophils % Lymphocytes % (Manual) Reactive Lymphs % (Man) Monocytes % (Manual) Eosinophils % (Manual) Basophils % (Manual) Metamyelocytes % Myelocytes % Promyelocytes % Blast Cells % Nucleated RBC % Seg Neutrophils # Man Band Neutrophils # Lymphocytes # (Manual) Abs React Lymphs (Man) Monocytes # (Manual) Eosinophils # (Manual) Basophils # (Manual) Metamyelocytes # Myelocytes # Promyelocytes # Blast Cells # WBC Morphology Hypersegmented Neuts Hyposegmented Neuts Hypogranular Neuts Smudge Cells Toxic Granulation Toxic Vacuolation Dohle Bodies Pelger-Huet Anomaly Pao Rods Platelet Estimate Clumped Platelets Plt Clumps, EDTA Large Platelets Giant Platelets Platelet Satelliting Plt Morphology Comment RBC Morphology Dimorphic RBCs Polychromasia Hypochromasia Poikilocytosis Anisocytosis Microcytosis Macrocytosis Spherocytes Pappenheimer Bodies Sickle Cells Target Cells Tear Drop Cells Ovalocytes Helmet Cells [place] Bodies Denair Rings Soldier Cells Bite Cells Crenated Cell Elliptocytes Acanthocytes (Spur) Rouleaux Hemoglobin C Crystals Schistocytes Malaria parasites Chung Bodies Hem Pathologist Commnt Sodium 164 H* 163 H* Potassium 4.2 4.0 Chloride 126.9 H 128.4 H Carbon Dioxide 22 24 Anion Gap 19 15 BUN 87 H 84 H Creatinine 1.4 H 1.4 H Estimated GFR 44 44 BUN/Creatinine Ratio 62 60 Glucose 429 H 380 H POC Glucose 436 H Calcium 8.2 L 8.2 L Blood Type Antibody Screen Crossmatch 08/10/19 08/10/19 08/11/19 15:52 18:58 06:23 WBC RBC Hgb Hct MCV MCH MCHC RDW Plt Count Lymph % (Auto) Add Manual Diff Total Counted Seg Neutrophils % Seg Neuts % (Manual) Band Neutrophils % Lymphocytes % (Manual) Reactive Lymphs % (Man) Monocytes % (Manual) Eosinophils % (Manual) Basophils % (Manual) Metamyelocytes % Myelocytes % Promyelocytes % Blast Cells % Nucleated RBC % Seg Neutrophils # Man Band Neutrophils # Lymphocytes # (Manual) Abs React Lymphs (Man) Monocytes # (Manual) Eosinophils # (Manual) Basophils # (Manual) Metamyelocytes # Myelocytes # Promyelocytes # Blast Cells # WBC Morphology Hypersegmented Neuts Hyposegmented Neuts Hypogranular Neuts Smudge Cells Toxic Granulation Toxic Vacuolation Dohle Bodies Pelger-Huet Anomaly Pao Rods Platelet Estimate Clumped Platelets Plt Clumps, EDTA Large Platelets Giant Platelets Platelet Satelliting Plt Morphology Comment RBC Morphology Dimorphic RBCs Polychromasia Hypochromasia Poikilocytosis Anisocytosis Microcytosis Macrocytosis Spherocytes Pappenheimer Bodies Sickle Cells Target Cells Tear Drop Cells Ovalocytes Helmet Cells [place] Bodies Denair Rings Manuel Cells Bite Cells Crenated Cell Elliptocytes Acanthocytes (Spur) Rouleaux Hemoglobin C Crystals Schistocytes Malaria parasites Chung Bodies Hem Pathologist Commnt Sodium Potassium Chloride Carbon Dioxide Anion Gap BUN Creatinine Estimated GFR BUN/Creatinine Ratio Glucose POC Glucose 368 H 261 H 161 H Calcium Blood Type Antibody Screen Crossmatch Medications & Allergies - Medications Allergies/Adverse Reactions: Allergies No Known Allergies Allergy (Verified 06/06/19 08:16) Home Medications: Home Medications Medication Instructions Recorded Confirmed Last Taken Type RX: Acetaminophen [Acetaminophen 500 mg PO Q6HR 05/26/19 08/09/19 07/13/19 History TAB] RX: HYDROcodone/APAP 5-325 [[place] 1 each PO Q6HR PRN #10 tablet 05/28/19 08/09/19 07/13/19 Rx 5-325 mg TAB] Furosemide [Lasix TAB] 40 mg PO QDAY #30 tablet 08/03/19 08/09/19 Unknown Rx RX: levoFLOXacin [Levaquin TAB] 750 mg PO QDAY #8 tablet 08/03/19 08/09/19 Unknown Rx RX: metroNIDAZOLE [Flagyl TAB] 500 mg PO Q8HR #24 tablet 08/03/19 08/09/19 Unknown Rx Active Medications: Generic Name Dose Route Start Last Admin Trade Name Freq PRN Reason Stop Dose Admin Acetaminophen 650 mg 08/10/19 00:41 08/10/19 07:35 Tylenol MO 650 mg Q4H PRN Administration Pain MILD(1-3)/Fever >100.5/COLUNGA Dextrose 50 ml 08/10/19 00:46 D50w (25gm) Syringe IV Q30MIN PRN Hypoglycemia Protocol Dextrose 1,000 mls @ 75 mls/hr 08/10/19 05:00 08/10/19 05:03 D5w IV 75 mls/hr DIRECT XOCHITL Administration Cefepime HCl 1 gm in 100 mls @ 200 mls/hr 08/10/19 22:00 08/10/19 22:26 Cefepime/Ns 1 Gm/100 Ml IV 200 mls/hr Q12HR XOCHITL Administration Protocol Vancomycin HCl 750 mg/ Sodium 265 mls @ 166.667 mls/hr 08/10/19 20:00 08/10/19 21:00 Chloride IV 166.667 mls/hr Q24H XOCHITL Administration Insulin Glargine 5 units 08/10/19 11:00 08/10/19 11:27 Lantus SUB-Q 5 units QAMDIAB XOCHITL Administration Insulin Human Regular 0 units 08/10/19 12:00 08/11/19 04:37 Humulin R IV Not Given Q6HR XOCHITL Protocol Ondansetron HCl 4 mg 08/10/19 00:41 Zofran IV Q8H PRN Nausea And Vomiting Sodium Chloride 10 ml 08/10/19 10:00 08/10/19 23:00 Sodium Chloride Flush Syringe 10 Ml IV 10 ml BID XOCHITL Administration Sodium Chloride 10 ml 08/10/19 00:41 Sodium Chloride Flush Syringe 10 Ml IV PRN PRN LINE FLUSH Voriconazole 200 mg 08/10/19 16:00 08/10/19 22:00 Voriconazole PO 200 mg Q12HR XOCHITL Administration
--- NOTE | 2019-08-11 07:50 | Consultation ---
REFERRED BY: Dr. Tejeda. REASON FOR CONSULTATION: MDS. HISTORY OF PRESENT ILLNESS: I saw the patient, a 78-year-old female, in the ICU. The patient has history of myelodysplastic syndrome. This was originally diagnosed in 2016. She received one dose of chemotherapy in 2018 and then was lost to follow up. She was seen back in 2018, she underwent bone marrow biopsy in March, which showed MDS. She received 3 doses of chemotherapy without much change in her counts. She has been getting readmitted to the hospital multiple times for transfusion support. She was recently in the hospital in early July and was discharged with hospice. She was brought back to the hospital because of confusion and was found to have low oxygen levels and blood pressure in the Emergency Room. At this time, she is on 100% oxygen support. I spoke to the daughter. Daughter was looking into more interventions. REVIEW OF SYSTEMS: Not reliable because the patient is lethargic. PAST MEDICAL HISTORY: MDS, hypertension, diabetes and anemia. PAST SURGICAL HISTORY: PICC line. SOCIAL HISTORY: History of smoking. FAMILY HISTORY: Hypertension and diabetes. ALLERGIES: None. PHYSICAL EXAMINATION: VITAL SIGNS: Temperature 98, pulse 88, respirations 20, BP 128/48. HEENT: Pallor present. Icterus present. NECK: No neck lymph nodes. Oxygen support present. HEART: S1, S2. LUNGS: Clear to auscultation anteriorly. ABDOMEN: Soft. EXTREMITIES: No calf tenderness. LABORATORY DATA: White cell 0.1, hemoglobin 6.4, MCV is 88, platelet 5. Potassium 4.2, creatinine 1.4, calcium 8.2. RADIOLOGY: Abdomen CT and head CT was done. Abdomen shows enlarged spleen. Head CT shows development of hygroma along the lateral right frontal lobe. ASSESSMENT: 1. History of anemia, leukopenia, thrombocytopenia secondary to myelodysplastic syndrome. The patient has had 3 cycles of chemotherapy; however, counts have not improved, usually we wait for 4 cycles. She has not been able to get in because of her recurrent hospitalization. The patient was in hospice, but this was revoked as per the daughter, she did not understand hospice. The patient has been seen by Infectious Disease team. She has had prolonged cytopenia, which did not recover in spite of supportive care of GCSF. She has been getting periodic blood transfusion and platelet transfusion. Bone marrow biopsy done last in March had shown 90%-100% cellularity with myelodysplastic syndrome. There was a plan to repeat bone marrow biopsy; however, this could not be done because in the hospital, IR did not do it because of cytopenia. 2. Splenomegaly with spleen lesions. 3. History of methicillin-resistant Staphylococcus aureus. 4. History of diabetes. 5. History of hypertension. I will talk to the family members. At this time, she is on oxygen support. 6. History of confusion. 7. Hygroma found on CT head. Based on her poor performance, hospice is appropriate. JOB# [id number] NM/NTS
--- NOTE | 2019-08-11 08:58 | Progress Note ---
Assessment and Plan Assessment and plan: Patient is a 78 yo woman with a history of MDS with multiple blood transfusions, Depression, hypertension, immunocompromised state s/p chemotherapy with Dr. Gonsales presents to [facility] ED with AMS. She was found to have pneumonia * pCXR IMPRESSION: 1. Nodular bilateral parenchymal disease again noted. Recomm end chest CT for further evaluation in order to differentiate pulmonary metastases from multifocal pneumonia. * CT abd/pelvis without contrast IMPRESSION: 1. Masslike consolidations in the middle and right lower lobes are concerning for pneumonia, worsening relative to 07/28/2019. 2. Otherwise, no acute abnormality is identified within limitations of the exam, which include patient motion, streak artifact from overlying electrodes, and non-contrast technique. * CT head without contrast FINDINGS: BRAIN / INTRACRANIAL CONTENTS: There has been interval development of prominence of the CSF attenuation along the right frontal lobe from the previous CT which may represent a small hygroma. This finding measures approximately 4-5 mm in greatest transverse diameter. There is motion as well as beam hardening artifact from the adjacent calvarium but this finding appears to demonstrate CSF density at. Otherwise, there is no clear CT evidence of acute intracranial hemorrhage. There is mild to moderate cerebral white matter disease most consistent with microvascular angiopathy which appears unchanged at. There is mild cerebral atrophy. The ventricular system remains appropriate in size and configuration. ORBITS: No significant abnormality of visualized orbits. SINUSES / MASTOIDS: There is continued is scattered opacification within the ethmoid and right sphenoid sinuses. CRANIOCERVICAL JUNCTION: No significant abnormality. ADDITIONAL FINDINGS: None. IMPRESSION: 1. The findings are indicative of interval development of a small hygroma along the lateral right frontal lobe from 07/29/2019 as detailed above. There is continued mild to moderate microvascular angiopathy without clear CT evidence of acute intra-axial hemorrhage. ARF suspected due vasomotor nephropathy-treat with IVF, monitor bmp closely Acute hypoxic respiratory failure on 100% NRB FiO2: continue present management Sepsis Pneumonia-treat with IV abx, consult ID Acute encephalopathy-treat the pneumonia MDS-consult Dr. Gonsales Severe Pancytopenia treat the infection Neutropenic fever: treat with abx Hypernatremia: repeat bmp Severe Thrombocytopenia s/p 1 u of FFP, 1 unit pheresis Bilateral pneumonia immunocompromised Coagulopathic Severe Acute on chronic anemia s/p 2 units PRBC DVT ppx scd verified DNR status with children poor prognosis, now hypotensive, give stat 1 liter NSS==>did not tolerate, will stop, d/w daughter ok for dopamine and try [place] I called daughter Katelin [phone] and son Pedro over the phone. They want her transfer to [facility] but don't have a doctor at [place]. I called [phone], spoke with Eileen, no beds available 08/10/19. Then on 08/11/19, I spoke with zeynep Thomason, and she want to try to transfer to [place], so I called [place] transfer center and spoke with Maya, they are no beds, [facility] is oversaturated (no beds) in icu/medsurg, [facility] is oversaturated on medsurg. I will transfer to [facility] on dopamine and then call [facility] back. start IV dopamine drip place NGT abx changed per ID tylenol pr not working Get bmp CCT 36 minutes History Interval history: Patient was seen and examined. Follow-up on current diagnosis of AMS. No overnight events reported to me. Patient denies any chest pain, shortness breath, nausea/vomiting or severe headaches. Imaging, nursing note, chart, labs and old chart reviewed. Discussed with patient. Hospitalist Physical - Physical exam Narrative exam: Gen: critically ill, NAD, Awake, Alert, Orientated HEENT: NCAT, EOMI, PERRL, OP Clear Neck: supple, no adenopathy, no thyromegaly, no JVD CVS/Heart: RRR, normal S1S2, pulses present bilaterally Chest/Lungs: coarse bs bilateral, Symmetrical chest expansion, good air entry bilaterally GI/Abdomen: soft, NTND, good bowel sounds, no guarding or rebound /Bladder: no suprapubic tenderness, no CVA or paraspinal tenderness Extermity/Skin: no c/c/e, no obvious rash MSK: FROM x 4 Neuro: CN 2-12 grossly intact, no new focal deficits Psych: calm - Constitutional Vitals: Temp Pulse Resp BP Pulse Ox 102.6 F H 128 H 20 86/44 100 08/11/19 08:50 08/11/19 08:50 08/11/19 08:18 08/11/19 08:50 08/11/19 08:50 Results - Labs CBC & Chem 7: 08/10/19 09:07 08/10/19 13:37 Labs: Laboratory Last Values WBC 0.1 K/mm3 (4.5-11.0) L* 08/10/19 09:07 RBC 2.15 M/mm3 (3.65-5.03) L 08/10/19 09:07 Hgb 6.4 gm/dl (10.1-14.3) L 08/10/19 09:07 Hct 19.0 % (30.3-42.9) L* 08/10/19 09:07 MCV 88 fl (79-97) 08/10/19 09:07 MCH 30 pg (28-32) 08/10/19 09:07 MCHC 34 % (30-34) 08/10/19 09:07 RDW 17.6 % (13.2-15.2) H 08/10/19 09:07 Plt Count 5 K/mm3 (140-440) L* 08/10/19 09:07 Lymph % (Auto) Line Technician 08/10/19 09:07 Add Manual Diff Complete 08/10/19 09:07 Total Counted 5 08/10/19 09:07 Seg Neutrophils % Line Technician 08/10/19 09:07 Seg Neuts % (Manual) 0 % (40.0-70.0) L 08/10/19 09:07 Band Neutrophils % 0 % 08/10/19 09:07 Lymphocytes % (Manual) 100.0 % (13.4-35.0) H 08/10/19 09:07 Reactive Lymphs % (Man) 0 % 08/10/19 09:07 Monocytes % (Manual) 0 % (0.0-7.3) 08/10/19 09:07 Eosinophils % (Manual) 0 % (0.0-4.3) 08/10/19 09:07 Basophils % (Manual) 0 % (0.0-1.8) 08/10/19 09:07 Metamyelocytes % 0 % 08/10/19 09:07 Myelocytes % 0 % 08/10/19 09:07 Promyelocytes % 0 % 08/10/19 09:07 Blast Cells % 0 % 08/10/19 09:07 Nucleated RBC % Not Reportable 08/10/19 09:07 Seg Neutrophils # Man 0.0 K/mm3 (1.8-7.7) L 08/10/19 09:07 Band Neutrophils # 0.0 K/mm3 08/10/19 09:07 Lymphocytes # (Manual) 0.1 K/mm3 (1.2-5.4) L 08/10/19 09:07 Abs React Lymphs (Man) 0.0 K/mm3 08/10/19 09:07 Monocytes # (Manual) 0.0 K/mm3 (0.0-0.8) 08/10/19 09:07 Eosinophils # (Manual) 0.0 K/mm3 (0.0-0.4) 08/10/19 09:07 Basophils # (Manual) 0.0 K/mm3 (0.0-0.1) 08/10/19 09:07 Metamyelocytes # 0.0 K/mm3 08/10/19 09:07 Myelocytes # 0.0 K/mm3 08/10/19 09:07 Promyelocytes # 0.0 K/mm3 08/10/19 09:07 Blast Cells # 0.0 K/mm3 08/10/19 09:07 WBC Morphology Not Reportable 08/10/19 09:07 Hypersegmented Neuts Not Reportable 08/10/19 09:07 Hyposegmented Neuts Not Reportable 08/10/19 09:07 Hypogranular Neuts Not Reportable 08/10/19 09:07 Smudge Cells Not Reportable 08/10/19 09:07 Toxic Granulation Not Reportable 08/10/19 09:07 Toxic Vacuolation Not Reportable 08/10/19 09:07 Dohle Bodies Not Reportable 08/10/19 09:07 Pelger-Huet Anomaly Not Reportable 08/10/19 09:07 Pao Rods Not Reportable 08/10/19 09:07 Platelet Estimate Consistent w auto 08/10/19 09:07 Clumped Platelets Not Reportable 08/10/19 09:07 Plt Clumps, EDTA Not Reportable 08/10/19 09:07 Large Platelets Not Reportable 08/10/19 09:07 Giant Platelets Not Reportable 08/10/19 09:07 Platelet Satelliting Not Reportable 08/10/19 09:07 Plt Morphology Comment Not Reportable 08/10/19 09:07 RBC Morphology Not Reportable 08/10/19 09:07 Dimorphic RBCs Not Reportable 08/10/19 09:07 Polychromasia Not Reportable 08/10/19 09:07 Hypochromasia Not Reportable 08/10/19 09:07 Poikilocytosis Not Reportable 08/10/19 09:07 Anisocytosis 1+ 08/10/19 09:07 Microcytosis Not Reportable 08/10/19 09:07 Macrocytosis Not Reportable 08/10/19 09:07 Spherocytes Not Reportable 08/10/19 09:07 Pappenheimer Bodies Not Reportable 08/10/19 09:07 Sickle Cells Not Reportable 08/10/19 09:07 Target Cells Few 08/10/19 09:07 Tear Drop Cells Not Reportable 08/10/19 09:07 Ovalocytes Not Reportable 08/10/19 09:07 Helmet Cells Not Reportable 08/10/19 09:07 [place] Bodies Not Reportable 08/10/19 09:07 [place] Rings Not Reportable 08/10/19 09:07 [place] Cells Not Reportable 08/10/19 09:07 Bite Cells Not Reportable 08/10/19 09:07 Crenated Cell Not Reportable 08/10/19 09:07 Elliptocytes Not Reportable 08/10/19 09:07 Acanthocytes (Spur) Not Reportable 08/10/19 09:07 Rouleaux Not Reportable 08/10/19 09:07 Hemoglobin C Crystals Not Reportable 08/10/19 09:07 Schistocytes Not Reportable 08/10/19 09:07 Malaria parasites Not Reportable 08/10/19 09:07 Chung Bodies Not Reportable 08/10/19 09:07 Hem Pathologist Commnt No 08/10/19 09:07 PT TNR 08/10/19 05:41 INR TNR 08/10/19 05:41 APTT TNR 08/10/19 05:41 Sodium 163 mmol/L (137-145) H* 08/10/19 13:37 Potassium 4.0 mmol/L (3.6-5.0) 08/10/19 13:37 Chloride 128.4 mmol/L (98-107) H 08/10/19 13:37 Carbon Dioxide 24 mmol/L (22-30) 08/10/19 13:37 Anion Gap 15 mmol/L 08/10/19 13:37 BUN 84 mg/dL (7-17) H 08/10/19 13:37 Creatinine 1.4 mg/dL (0.7-1.2) H 08/10/19 13:37 Estimated GFR 44 ml/min 08/10/19 13:37 BUN/Creatinine Ratio 60 % 08/10/19 13:37 Glucose 380 mg/dL (65-100) H 08/10/19 13:37 POC Glucose 176 (70-105) H 08/11/19 08:29 Lactic Acid 1.50 mmol/L (0.7-2.0) 08/10/19 05:41 Calcium 8.2 mg/dL (8.4-10.2) L 08/10/19 13:37 Phosphorus 4.40 mg/dL (2.5-4.5) 08/10/19 05:41 Magnesium 2.40 mg/dL (1.7-2.3) H 08/10/19 05:41 Total Bilirubin 2.40 mg/dL (0.1-1.2) H 08/09/19 17:45 AST < 5 units/L (5-40) L 08/09/19 17:45 ALT < 5 units/L (7-56) L 08/09/19 17:45 Alkaline Phosphatase 22 units/L (35-129) L 08/09/19 17:45 Troponin T < 0.010 ng/mL (0.00-0.029) 08/09/19 19:32 Total Protein 6.9 g/dL (6.3-8.2) 08/09/19 17:45 Albumin 2.1 g/dL (3.9-5) L 08/09/19 17:45 Albumin/Globulin Ratio 0.4 % 08/09/19 17:45 Urine Color Vanessa (Yellow) 08/09/19 19:06 Urine Turbidity Slightly-cloudy (Clear) 08/09/19 19:06 Urine pH 5.0 (5.0-7.0) 08/09/19 19:06 Ur Specific [place] 1.017 (1.003-1.030) 08/09/19 19:06 Urine Protein <15 mg/dl mg/dL (Negative) 08/09/19 19:06 Urine Glucose (UA) Neg mg/dL (Negative) 08/09/19 19:06 Urine Ketones Neg mg/dL (Negative) 08/09/19 19:06 Urine Blood Neg (Negative) 08/09/19 19:06 Urine Nitrite Neg (Negative) 08/09/19 19:06 Urine Bilirubin Neg (Negative) 08/09/19 19:06 Urine Urobilinogen < 2.0 mg/dL (<2.0) 08/09/19 19:06 Ur Leukocyte Esterase Tr (Negative) 08/09/19 19:06 Urine WBC (Auto) 1.0 /HPF (0.0-6.0) 08/09/19 19:06 Urine RBC (Auto) 1.0 /HPF (0.0-6.0) 08/09/19 19:06 U Epithel Cells (Auto) 1.0 /HPF (0-13.0) 08/09/19 19:06 Urine Bacteria (Auto) 1+ /HPF (Negative) 08/09/19 19:06 Urine Mucus Few /HPF 08/09/19 19:06 Urine Yeast (Budding) 1+ /HPF 08/09/19 19:06 Blood Type O POSITIVE 08/09/19 19:32 Antibody Screen Negative 08/09/19 19:32 Crossmatch See Detail 08/09/19 19:32 Active Medications - Current Medications Current Medications: Generic Name Dose Route Start Last Admin Trade Name Freq PRN Reason Stop Dose Admin Acetaminophen 650 mg 08/10/19 00:41 08/10/19 07:35 Tylenol CA 650 mg Q4H PRN Administration Pain MILD(1-3)/Fever >100.5/COLUNGA Dextrose 50 ml 08/10/19 00:46 D50w (25gm) Syringe IV Q30MIN PRN Hypoglycemia Protocol Dextrose 1,000 mls @ 75 mls/hr 08/10/19 05:00 08/10/19 05:03 D5w IV 75 mls/hr DIRECT XOCHITL Administration Cefepime HCl 1 gm in 100 mls @ 200 mls/hr 08/10/19 22:00 08/10/19 22:26 Cefepime/Ns 1 Gm/100 Ml IV 200 mls/hr Q12HR XOCHITL Administration Protocol Vancomycin HCl 750 mg/ Sodium 265 mls @ 166.667 mls/hr 08/10/19 20:00 08/10/19 21:00 Chloride IV 166.667 mls/hr Q24H XOCHITL Administration Insulin Glargine 5 units 08/10/19 11:00 08/10/19 11:27 Lantus SUB-Q 5 units QAMDIAB XOCHITL Administration Insulin Human Regular 0 units 08/10/19 12:00 08/11/19 04:37 Humulin R IV Not Given Q6HR XOCHITL Protocol Ondansetron HCl 4 mg 08/10/19 00:41 Zofran IV Q8H PRN Nausea And Vomiting Sodium Chloride 10 ml 08/10/19 10:00 08/10/19 23:00 Sodium Chloride Flush Syringe 10 Ml IV 10 ml BID XOCHITL Administration Sodium Chloride 10 ml 08/10/19 00:41 Sodium Chloride Flush Syringe 10 Ml IV PRN PRN LINE FLUSH Tbo-Filgrastim 300 mcg 08/11/19 10:00 Granix SUB-Q 08/16/19 09:59 DAILY XOCHITL Voriconazole 200 mg 08/10/19 16:00 08/10/19 22:00 Voriconazole PO 200 mg Q12HR XOCHITL Administration
[2019-08-11] MEDS: INSULIN GLARGINE 100 UNITS/ML SUB-Q SCH (09:00)
[2019-08-11] MEDS ORDERED: SODIUM CHLORIDE 0.9% 1000 ML 1,000 ML IV ONE (09:00)
[2019-08-11] MEDS: ACETAMINOPHEN 650 MG RECT SUPP PR PRN (09:02)
[2019-08-11] MEDS: CEFEPIME/NS 1 GM/100 ML 1 GM/100 ML BAG IV SCH (09:03)
[2019-08-11] MEDS ORDERED: TBO-FILGRASTIM 300 MCG/0.5 ML SUB-Q SCH (10:00)
--- NOTE | 2019-08-11 10:06 | Progress Note ---
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 Gonsales known to us from multiple recent hospitalizations. Most recently discharged on 08/03/2019 following acute diverticulitis treated with IV antibiotics and then discharged on PO levofloxacin, was on home hospice, then hospice reverted and admitted with: 1) R sided pneumonia: remains at high risk for opportunistic infections given chronic neutropenia. On empiric abx. Her overall prognosis is extremely poor, I strongly encourage hospice. She is at risk of invasive mold infection, will order Fungitell and Aspergillus galactomannan. Given the nodular infiltrate, will add empiric voriconazole. 2) MDS, immunocompromised host, severe pancytopenia: ANC is zero. Dr. Gonsales from Hem/Onc following. 3) Acute hypoxic respiratory failure 4) Acute encephalopathy: Sodium very high at 160. 5) Sepsis: also need to rule out bacteremia, has indwelling PICC line. Recs: repeat blood cultures ordered. Also spoke to RN to change PICC line dressing, her current dressing appears old. If she develops any hemodynamic instability, would recommend PICC removal given continued fever, will switch Cefepime to Meropenem continue IV vancomycin continue voriconazole She is at risk of invasive mold infection, f/u Fungitell and Aspergillus galactomannan extremely poor prognosis. Recommend hospice/palliative care. D/W Dr. Tejeda. Dara Crook MD, FACP [facility] ([facility]) C: [phone] O: [phone] F: [phone] Subjective Date of service: 08/11/19 Interval history: Spiking fevers again. Remains on ventimask. Drowsy. Can be awakened. Objective - Exam Narrative Exam: Physical Exam: Constitutional: drowsy, can be awakened, mumbling few words. on ventimask Head, Ears, Nose: Normocephalic, atraumatic. External ears, nose normal Eyes: Conjunctivae/corneas clear. No icterus. No ptosis. Neck: Supple, no meningeal signs Oral: no thrush Cardiovascular: S1, S2 normal. Respiratory: few rhonchi b/l GI: Soft, non-tender; bowel sounds normal. No peritoneal signs Musculoskeletal: No pedal edema, no cyanosis. Left arm PICC + dressing appears old Skin: No rash or abscess Hem/Lymphatic: No palpable cervical or supraclavicular nodes. No lymphangitis Psych: no agitation Neurological: drowsy, can be awakened, mumbling few words - Constitutional Vitals: Vital Signs Temp Pulse Resp BP Pulse Ox 102.6 F H 128 H 20 86/44 100 08/11/19 08:50 08/11/19 08:50 08/11/19 08:18 08/11/19 08:50 08/11/19 08:50 Temperature -Last 24 Hours Temperature 102.6 F Temperature 102.9 F Temperature 102.5 F Temperature 99.8 F Temperature 98.4 F Temperature 97.9 F Temperature 98.3 F Temperature 98.4 F Temperature 98.3 F Temperature 98.3 F Temperature 97.6 F Temperature 98.2 F Temperature 98.1 F Temperature 98.9 F Temperature 98.8 F - Labs CBC & Chem 7: 08/10/19 09:07 08/10/19 13:37 Labs: Abnormal lab results 08/09/19 08/10/19 08/10/19 Range/Units 19:32 09:07 09:07 WBC 0.1 L* (4.5-11.0) K/mm3 RBC 2.15 L (3.65-5.03) M/mm3 Hgb 6.4 L (10.1-14.3) gm/dl Hct 19.0 L* (30.3-42.9) % RDW 17.6 H (13.2-15.2) % Plt Count 5 L* (140-440) K/mm3 Seg Neuts % (Manual) 0 L (40.0-70.0) % Lymphocytes % (Manual) 100.0 H (13.4-35.0) % Seg Neutrophils # Man 0.0 L (1.8-7.7) K/mm3 Lymphocytes # (Manual) 0.1 L (1.2-5.4) K/mm3 Sodium 164 H* (137-145) mmol/L Chloride 126.9 H (98-107) mmol/L BUN 87 H (7-17) mg/dL Creatinine 1.4 H (0.7-1.2) mg/dL Glucose 429 H (65-100) mg/dL POC Glucose (70-105) Calcium 8.2 L (8.4-10.2) mg/dL Crossmatch See Detail 08/10/19 08/10/19 08/10/19 Range/Units 11:15 13:37 15:52 WBC (4.5-11.0) K/mm3 RBC (3.65-5.03) M/mm3 Hgb (10.1-14.3) gm/dl Hct (30.3-42.9) % RDW (13.2-15.2) % Plt Count (140-440) K/mm3 Seg Neuts % (Manual) (40.0-70.0) % Lymphocytes % (Manual) (13.4-35.0) % Seg Neutrophils # Man (1.8-7.7) K/mm3 Lymphocytes # (Manual) (1.2-5.4) K/mm3 Sodium 163 H* (137-145) mmol/L Chloride 128.4 H (98-107) mmol/L BUN 84 H (7-17) mg/dL Creatinine 1.4 H (0.7-1.2) mg/dL Glucose 380 H (65-100) mg/dL POC Glucose 436 H 368 H (70-105) Calcium 8.2 L (8.4-10.2) mg/dL Crossmatch 08/10/19 08/11/19 08/11/19 Range/Units 18:58 06:23 08:29 WBC (4.5-11.0) K/mm3 RBC (3.65-5.03) M/mm3 Hgb (10.1-14.3) gm/dl Hct (30.3-42.9) % RDW (13.2-15.2) % Plt Count (140-440) K/mm3 Seg Neuts % (Manual) (40.0-70.0) % Lymphocytes % (Manual) (13.4-35.0) % Seg Neutrophils # Man (1.8-7.7) K/mm3 Lymphocytes # (Manual) (1.2-5.4) K/mm3 Sodium (137-145) mmol/L Chloride (98-107) mmol/L BUN (7-17) mg/dL Creatinine (0.7-1.2) mg/dL Glucose (65-100) mg/dL POC Glucose 261 H 161 H 176 H (70-105) Calcium (8.4-10.2) mg/dL Crossmatch
--- NOTE | 2019-08-11 10:50 | XRay Report ---
CHEST 1 VIEW 08/11/2019 10:17 AM INDICATION / CLINICAL INFORMATION: increased work of breathing. COMPARISON: 08/09/2019 FINDINGS: SUPPORT DEVICES: Stable satisfactory device positioning. HEART / MEDIASTINUM: Stable. LUNGS / PLEURA: Stable patchy bilateral areas of parenchymal opacification. No significant effusion. No pneumothorax. ADDITIONAL FINDINGS: No significant additional findings. IMPRESSION: 1. Unchanged patchy bilateral parenchymal opacities. Signer Name: Kip Valdez MD Signed: 08/11/2019 10:45 AM Workstation Name: [id number]
[2019-08-11] MEDS: VORICONAZOLE 200 MG TAB PO SCH (10:54)
[2019-08-11] MEDS ORDERED: MEROPENEM/NS 1 GRAM/100 ML 1 GRAM/100 ML BAG IV SCH (11:00)
[2019-08-11] MEDS ORDERED: DOPamine/D5W 800 MG/250 ML 800 MG/250 ML BAG IV ONE (11:52)
[2019-08-11 16:14] VITALS: BP 93/38
--- NOTE | 2019-08-11 18:13 | Death Summary ---
Summary - Providers Consults: 08/10/19 00:41 Consult to Physician [CONS] Routine Comment: Consulting Provider: RICARDO GONSALES Physician Instructions: Reason For Exam: pancytopenia/MDS 08/10/19 14:26 Consult to Physician [CONS] Routine Comment: Consulting Provider: GALILEA HERNANDEZ Physician Instructions: i notified Reason For Exam: neutropenic fever, sepsis, pna Attending: MARLEN CARRINGTON - summary Date of admission: 08/09/19 23:02 Date of : 08/11/19 Significant findings: Patient is a 78 yo woman with a history of MDS with multiple blood transfusions, Depression, hypertension, immunocompromised state s/p chemotherapy with Dr. Gonsales presents to [facility] ED with AMS. She was found to have pneumonia. She never recovered despite IV abx. * pCXR IMPRESSION: 1. Nodular bilateral parenchymal disease again noted. Recommend chest CT for further evaluation in order to differentiate pulmonary metastases from multifocal pneumonia. * CT abd/pelvis without contrast IMPRESSION: 1. Masslike consolidations in the middle and right lower lobes are concerning for pneumonia, worsening relative to 07/28/2019. 2. Otherwise, no acute abnormality is identified within healy itations of the exam, which include patient motion, streak artifact from overlying electrodes, and non-contrast technique. * CT head without contrast FINDINGS: BRAIN / INTRACRANIAL CONTENTS: There has been interval development of prominence of the CSF attenuation along the right frontal lobe from the previous CT which may represent a small hygroma. This finding measures approximately 4-5 mm in greatest transverse diameter. There is motion as well as beam hardening artifact from the adjacent calvarium but this finding appears to demonstrate CSF density at. Otherwise, there is no clear CT evidence of acute intracranial hemorrhage. There is mild to moderate cerebral white matter disease most consistent with microvascular angiopathy which appears unchanged at. There is mild cerebral atrophy. The ventricular system remains appropriate in size and configuration. ORBITS: No significant abnormality of visualized orbits. SINUSES / MASTOIDS: There is continued is scattered opacification within the ethmoid and right sphenoid sinuses. CRANIOCERVICAL JUNCTION: No significant abnormality. ADDITIONAL FINDINGS: None. IMPRESSION: 1. The findings are indicative of interval development of a small hygroma along the lateral right frontal lobe from 07/29/2019 as detailed above. There is continued mild to moderate microvascular angiopathy without clear CT evidence of acute intra-axial hemorrhage. ARF suspected due vasomotor nephropathy-treat with IVF, monitor bmp closely Acute hypoxic respiratory failure on 100% NRB FiO2: continue present management Sepsis Pneumonia-treat with IV abx, consult ID Acute encephalopathy-treat the pneumonia MDS-consult Dr. Gonsales Severe Pancytopenia treat the infection Neutropenic fever: treat with abx Hypernatremia: repeat bmp Severe Thrombocytopenia s/p 1 u of FFP, 1 unit pheresis Bilateral pneumonia immunocompromised Coagulopathic Severe Acute on chronic anemia s/p 2 units PRBC DVT ppx scd verified DNR status with children I pronounced, eyes fixed, no heart tones, no breath sound, no pulse Time of 3:00pm Cause of : 1) Myelodysplastic Syndrome and 2) Sepsis Pneumonia
== END 2019-08-11 17:40 | DRG 871 ==
LOC: ED 16:52 → CC1 23:02 → 2B-ACE 08-10 17:24
PROVIDERS: ADMIT Internal Medicine; ATTEND Internal Medicine
PROC: 30233N1 Transfusion of Nonautologous Red Blood Cells into Peripheral Vein, Percutaneous Approach (ICD-10-PCS; 2019-08-09)
PROC: 30233K1 Transfusion of Nonautologous Frozen Plasma into Peripheral Vein, Percutaneous Approach (ICD-10-PCS; 2019-08-10)
PROC: 30233R1 Transfusion of Nonautologous Platelets into Peripheral Vein, Percutaneous Approach (ICD-10-PCS; 2019-08-10)
PROC: 4A033R1 Measurement of Arterial Saturation, Peripheral, Percutaneous Approach (ICD-10-PCS; principal; 2019-08-11)
PROC: 5A09357 Assistance with Respiratory Ventilation, Less than 24 Consecutive Hours, Continuous Positive Airway Pressure (ICD-10-PCS; 2019-08-11)
DX: A41.9 Sepsis, unspecified organism (principal); J96.01 Acute respiratory failure with hypoxia; J18.9 Pneumonia, unspecified organism; N17.0 Acute kidney failure with tubular necrosis; D61.818 Other pancytopenia; G93.40 Encephalopathy, unspecified; E87.0 Hyperosmolality and hypernatremia; D68.9 Coagulation defect, unspecified; F32.9 Major depressive disorder, single episode, unspecified; D46.9 Myelodysplastic syndrome, unspecified; D69.6 Thrombocytopenia, unspecified; D18.1 Lymphangioma, any site; E11.9 Type 2 diabetes mellitus without complications; E87.5 Hyperkalemia; Z66 Do not resuscitate; I11.0 Hypertensive heart disease with heart failure; I50.9 Heart failure, unspecified; Z82.49 Family history of ischemic heart disease and other diseases of the circulatory system; Z83.3 Family history of diabetes mellitus; I25.2 Old myocardial infarction; Z90.49 Acquired absence of other specified parts of digestive tract; Z85.028 Personal history of other malignant neoplasm of stomach
CPT/HCPCS: 36415; 36600; 70450; 71045; 74176; 80048; 80053; 81001; 82140; 82803; 82962; 83735; 84100; 84484; 85007; 85025; 85610; 85730; 86850; 86900; 86901; 86920; 87040; 87086; 93005; 93010; 94660; 94760; G0378; J0610; J0692; J1265; J1447; J1815; J2185; J2543; J3370; J7030; J7040; J7050; J7070; P9016; P9017; P9035